=== PATIENT | female | born 1945 | race Hispanic/Latino ===

== ENCOUNTER 2017-11-23 10:02 | Inpatient (IN) | payer MEDICARE, OTHER ==
[2017-11-23] MEDS ORDERED: Sodium Chloride 0.9% 1,000 ML IV ONE (10:37)
[2017-11-23] MEDS ORDERED: Metoprolol Succinate 50 mg XL Tab PO STA (10:40)
--- NOTE | 2017-11-23 10:48 | C.PDOC ---
History Of Present Illness 72 y/o female with PMHx of diabetes,anemia, breast cancer and hypertension, presents to the ED complaining of worsening abdominal pain, occurring intermittently for the past 3 months. Pain initially was left lower quadrant but is now localized to the right lower side. (+) weight loss (+) excessive belching (+) bloating (+) constipated (secondary to narcotics). Patient was seen her PMD, Dr. Freeman, treated with Cipro and then MAcrobid for UTI. Also has had an ultrasound showing cholelithiasis, and a CT scan last week showing " lymph nodes." Also saw Dr Brown, GI on 11/21, and is scheduled for a colonoscopy this month. Otherwise she currently denies any back pain, flank pain , diarrhea, constipation, fever, dysuria or urinary frequency. Reports 1 episode of vomiting this morning- believes its secondary to "my nerves". Patient admits she did not take any of her chronic medications this morning. Time Seen by Provider: 11/23/17 10:15 Chief Complaint (Nursing): Abdominal Pain History Per: Patient History/Exam Limitations: no limitations Onset/Duration Of Symptoms: Intermittent Episodes Current Symptoms Are (Timing): Still Present Past Medical History Reviewed: Historical Data, Nursing Documentation, Vital Signs Vital Signs: Last Vital Signs Temp 98.6 F 11/23/17 15:45 Pulse 67 11/23/17 15:45 Resp 20 11/23/17 15:45 BP 182/72 H 11/23/17 12:19 Pulse Ox 98 11/23/17 18:11 - Medical History PMH: Anemia, Diabetes, Gall Bladder Disease, HTN, Malignancy (Cervical CA, Left Breast CA) Other Surgeries: Hysterectomy, Mastectomy Family History: States: No Known Family Hx - Social History Hx Alcohol Use: No Hx Substance Use: No - Immunization History Hx Tetanus Toxoid Vaccination: No Hx Influenza Vaccination: No Hx Pneumococcal Vaccination: Yes Review Of Systems Except As Marked, All Systems Reviewed And Found Negative. Constitutional: Negative for: Fever, Chills Gastrointestinal: Positive for: Vomiting, Abdominal Pain. Negative for: Diarrhea, Constipation Musculoskeletal: Negative for: Back Pain Physical Exam - Physical Exam Appears: Non-toxic, No Acute Distress Skin: Normal Color, Warm Head: Atraumatic, Normacephalic Eye(s): bilateral: Normal Inspection, EOMI Nose: Normal Oral Mucosa: Moist Neck: Normal ROM, Supple Chest: Symmetrical Cardiovascular: Rhythm Regular Respiratory: Normal Breath Sounds, No Rales, No Rhonchi, No Wheezing Gastrointestinal/Abdominal: Soft, Tenderness (mild diffuse tenderness), Distention, No Guarding Extremity: Bilateral: Atraumatic, No Pedal Edema, Normal Color And Temperature, Normal ROM Pulses: Left Dorsalis Pedis: Normal, Right Dorsalis Pedis: Normal Neurological/Psych: Oriented x3, Normal Speech, Other (No focal deficits) ED Course And Treatment - Laboratory Results Result Diagrams: 11/23/17 10:53 11/23/17 10:53 O2 Sat by Pulse Oximetry: 98 (RA) Pulse Ox Interpretation: Normal - CT Scan/US CT A/P Other Rad Studies (CT/US): Read By Radiologist, Radiology Report Reviewed CT/US Interpretation: Accession No. : [id number]. Patient Name / ID : VLADISLAV MELGAR / [id number]. Exam Date : 11/23/2017 13:17:59 ( Approved ) . Study Comment : Sex / Age : F / [id number]. Creator : Reinier Bee MD. Dictator : Reinier Bee MD. Pillowcase Cleaner : Endodontics Dentist : Reinier Bee MD. Approver2 : Report Date : 11/23/2017 14:01:06. My Comment : . PROCEDURE: CT Abdomen and Pelvis without intravenous contrast. HISTORY: Abdominal pain. COMPARISON: None. TECHNIQUE: Multiple contiguous axial images were performed through the abdomen and pelvis with the use of intravenous contrast. Subsequently, sagittal and coronal reformatted images were obtained. Radiation dose: Total exam DLP = 513 mGy-cm. This CT exam was performed using one or more of the following dose reduction techniques: Automated exposure control, adjustment of the mA and/or kV according to patient size, and/or use of iterative reconstruction technique. FINDINGS: LOWER THORAX : Nodular consolidative changes in the anterior aspect of the right middle lobe. Atelectasis at the lung bases. 6 millimeter pulmonary nodule within the inferior aspect of the left upper lobe on series 3, image 16. LIVER: Prominent liver measuring up to 23.7 centimeters. GALLBLADDER AND BILE DUCTS: Cholelithiasis with large gallbladder calculi measuring up to 1.2 and 1.4 centimeters. PANCREAS: Unremarkable. No gross lesion or ductal dilatation. SPLEEN: Prominent spleen. Splenule. 5 millimeter hypodensity in the spleen, too small to adequately characterize. ADRENALS: Prominent nodular thickening of the bilateral adrenal glands. For example, in the right adrenal gland there is a 2.1 centimeter nodule demonstrating a Hounsfield unit attenuation of 33, indeterminate. An additional right adrenal nodule measures 1.5 centimeters demonstrating a Hounsfield unit attenuation of 53, indeterminate. 1.3 centimeter low-attenuation nodule in the left adrenal gland demonstrates a Hounsfield unit attenuation of 36, indeterminate. KIDNEYS AND URETERS: Right kidney: Scattered multiple low-attenuation lesions throughout the right kidney. For example, a somewhat ill-defined lesion is noted at the upper pole measuring 1.6 centimeters demonstrating a Hounsfield unit attenuation of 28, indeterminate. Mild fullness and or mild hydronephrosis of the right renal collecting system and ureter. Additional scattered low-attenuation lesions in the right kidney. Left Kidney: 1.6 centimeter low-attenuation lesion demonstrating a Hounsfield unit attenuation of 22 in the upper pole of the left kidney, indeterminate. Perinephric fat stranding. Fullness versus mild hydronephrosis of the left renal collecting system. VASCULATURE: Atherosclerotic calcification and plaque within the aorta and iliac vessels. Severe atherosclerotic calcification and plaque seen within the mid to distal abdominal aorta extending into the iliac vessels with what appears to be severe stenosis of the aorta at its mid to distal aspect as demonstrated on series 3, images 65 through 100. Correlation with the CT angiogram of the abdominal aorta would be helpful to better characterize the degree of calcification and plaque. BOWEL: Fecal retention in the colon. APPENDIX: Unremarkable. Normal appendix. PERITONEUM: Scattered nodular areas of peritoneal thickening are concerning for carcinomatosis for example in the left upper abdomen on series 3 , images 74-84 there is a confluent area of thickening measuring up to 3.9 x 2.0 centimeters. More anteriorly there is thickening of the abdominal mesentery also concerning for carcinomatosis. LYMPH NODES: Extensive and prominent para-aortic lymphadenopathy concerning for metastatic disease seen along the anterior, right, and left abdominal aorta at its mid and distal portions which measure up to 9 centimeters in craniocaudal dimension as well as up to 3.9 x 2.3 centimeters on the right aspect of the aorta, up to 3.3 x 2.7 centimeters on the left aspect of the aorta, and up to 3.9 x 1.2 centimeters anteriorly. This lymphadenopathy is confluent and prominent. Right inguinal lymphadenopathy measures up to 2.3 x 1.4 centimeters with additional shotty left inguinal lymphadenopathy is noted. Bladder. Unremarkable. REPRODUCTIVE: Unremarkable. BONES: Degenerative changes in the spine and hips. OTHER FINDINGS: None. IMPRESSION: Extensive abdominal lymphadenopathy concerning for extensive metastatic disease. Scattered areas of abdominal mesenteric stranding concerning for abdominal carcinomatosis. Clinical correlation. Hepatosplenomegaly. Cholelithiasis. Nodular consolidative changes in the anterior aspect of the right middle lobe of the lung. 6 millimeter pulmonary nodule within the inferior aspect of the left upper lobe on series 3, image 16. Nodular thickening of the adrenals with some indeterminate bilateral adrenal nodules. Correlation with multiphasic CT may be helpful if clinically indicated. Indeterminate bilateral low-attenuation renal lesions with associated mild fullness versus mild hydronephrosis of the bilateral renal collecting systems and mild perinephric fat stranding. Clinical correlation. Severe atherosclerotic calcification and mural plaque within the aorta with severe stenosis of the mid to distal abdominal aorta . Correlation with CT angiogram of the abdominal aorta is recommended for further evaluation if clinically indicated. Additional findings as above. Progress Note: Ordered blood work and urine. Patient started on IV fluids, Protonix, and Toradol. Also given 50 mg Metoprolol PO and 2 mg Glimepiride PO. Ordered. Case discussed with Dr Monroe, who requests Dr Krystle hamm for admission and Siegal for GI. Case discussed with covering Dr for Dr Tejada, who requests CT A/P with PO & IV contrast. Upon CT results, Dr Hamm informed for results. - Physician Consult Information Time Consulting Physician Contacted: 11:21 Physician Contacted: Lex Hamm Outcome Of Conversation: Patient admitted for intractable abdominal pain Disposition Counseled Patient/Family Regarding: Studies Performed, Diagnosis - Disposition Disposition: HOSPITALIZED Disposition Time: 11:24 Condition: STABLE - Clinical Impression Clinical Impression: Bilateral lower abdominal pain, Retroperitoneal lymphadenopathy - PA / FILLING HAND / Resident Statement MD/DO has reviewed & agrees with the documentation as recorded. - Scribe Statement The provider has reviewed the documentation as recorded by the Scribe (Анна River) All medical record entries made by the Scribe were at my direction and personally dictated by me. I have reviewed the chart and agree that the record accurately reflects my personal performance of the history, physical exam, medical decision making, and the department course for this patient. I have also personally directed, reviewed, and agree with the discharge instructions and disposition.
[2017-11-23] MEDS ORDERED: Sodium Chloride 0.9% 1,000 ML ONE (10:57)
[2017-11-23 10:58] LABS: BASO % 0.4 % (0.0-2.0); EOS # 0.1 K/uL (0.0-0.7); EOS % 0.7 % (0.0-4.0); HEMOGLOBIN 10.3 g/dL (11.0-16.0); LYMPH # 0.6 K/uL (1.0-4.3); LYMPH % 6.8 % (20.0-40.0); MEAN CELL VOLUME 64.7 fL (81.0-99.0); MEAN CORPUSCULAR HEMOGLOBIN 21.4 pg (27.0-31.0); MEAN CORPUSCULAR HGB CONC 33.1 g/dL (33.0-37.0); MEAN PLATELET VOLUME 8.8 fL (7.2-11.7); MONO # 0.5 K/uL (0.0-0.8); MONO % 6.1 % (0.0-10.0); NEUT # 7.4 K/uL (1.8-7.0); NRBC % 0.1 % (0.0-2.0); PLATELET COUNT 193 K/uL (130-400); RBC 4.78 Mil/uL (3.80-5.20); RED CELL DISTRIBUTION WIDTH 17.4 % (11.5-14.5); WHITE BLOOD COUNT 8.6 K/uL (4.8-10.8)
[2017-11-23 11:12] LABS: SQUAMOUS EPITHIAL 1 /hpf (0-5); URINE AMORPHOUS SEDIMENT RARE /ul (<OCC); URINE BILIRUBIN NEGATIVE (NEGATIVE); URINE BLOOD NEGATIVE (NEGATIVE); URINE CLARITY Hazy (Clear); URINE COLOR Yellow (YELLOW); URINE GLUCOSE (UA) 1+ mg/dL (Normal); URINE LEUKOCYTE ESTERASE NEG Leu/uL (Negative); URINE PROTEIN 1+ mg/dL (NEGATIVE); URINE UROBILINOGEN NORMAL mg/dL (0.2-1.0)
[2017-11-23 11:13] LABS: ALBUMIN 3.5 g/dL (3.5-5.0); ALT/SGPT 18 U/L (9-52); AST/SGOT 21 U/L (14-36); BLOOD UREA NITROGEN 15 mg/dL (7-17); CALCIUM 9.2 mg/dl (8.6-10.4); GFR AFRICAN-AMERICAN > 60; GFR NON-AFRICAN AMERICAN > 60; LIPASE 58 U/L (23-300)
[2017-11-23 11:34] LABS: ANISOCYTOSIS SLIGHT; LYMPHOCYTE 6 % (20-40); MONOCYTE 6 % (0-10); NEUTROPHIL 88 % (50-75); PLATELET ESTIMATE NORMAL (NORMAL); TOTAL CELLS COUNTED 100
[2017-11-23 11:35] LABS: HYPOCHROMIC SLIGHT; POLYCHROMIC SLIGHT
[2017-11-23 11:36] LABS: OVALOCYTES SLIGHT
[2017-11-23] MEDS ORDERED: Iohexol 240 (50 ml) PO STA (11:39)
[2017-11-23] MEDS ORDERED: Iohexol 240 (50 ml) ONE (11:42)
[2017-11-23] MEDS ORDERED: Iohexol 300 100 ML IJ ONE (12:01)
--- NOTE | 2017-11-23 12:58 | CP.PCM.HP ---
Past Patient History - Past Social History Smoking Status: Current Some Days Smoker - CARDIAC Hx Hypertension: Yes - HEMATOLOGICAL/ONCOLOGICAL Hx Anemia: Yes - GASTROINTESTINAL Hx Gall Bladder Disease: Yes - GENITOURINARY/GYNECOLOGICAL Hx Urinary Tract Infection: Yes - PSYCHIATRIC Hx Substance Use: No - SURGICAL HISTORY Hx Surgeries: Yes Hx Hysterectomy: Yes Hx Mastectomy: Yes (left) - ANESTHESIA Hx Anesthesia: Yes Hx Anesthesia Reactions: No Hx Malignant Hyperthermia: No Meds Allergies/Adverse Reactions: Allergies Allergy/AdvReac Type Severity Reaction Status Date / Time No Known Allergies Allergy Verified 11/23/17 10:11 Physical Exam - Constitutional Appears: Well - Head Exam Head Exam: ATRAUMATIC, NORMAL INSPECTION, NORMOCEPHALIC - Eye Exam Eye Exam: EOMI, Normal appearance, PERRL Pupil Exam: NORMAL ACCOMODATION, PERRL - ENT Exam ENT Exam: Mucous Membranes Moist, Normal Exam - Neck Exam Neck exam: Positive for: Normal Inspection - Respiratory Exam Respiratory Exam: Decreased Breath Sounds - Cardiovascular Exam Cardiovascular Exam: REGULAR RHYTHM, +S1, +S2 - GI/Abdominal Exam GI & Abdominal Exam: Diminished Bowel Sounds, Soft - Rectal Exam Rectal Exam: Deferred Results - Vital Signs Recent Vital Signs: Last Vital Signs Temp 97.8 F 11/23/17 10:04 Pulse 67 11/23/17 12:19 Resp 18 11/23/17 12:19 BP 182/72 H 11/23/17 12:19 Pulse Ox 100 11/23/17 12:19 - Labs Result Diagrams: 11/23/17 10:53 11/23/17 10:53 Labs: Laboratory Results - last 24 hr 11/23/17 11/23/17 11/23/17 10:53 10:53 10:53 WBC 8.6 RBC 4.78 Hgb 10.3 L Hct 31.0 L MCV 64.7 L MCH 21.4 L MCHC 33.1 RDW 17.4 H Plt Count 193 MPV 8.8 Neut % (Auto) 86.0 H Lymph % (Auto) 6.8 L [place] % (Auto) 6.1 Eos % (Auto) 0.7 Baso % (Auto) 0.4 Neut # (Auto) 7.4 H Lymph # (Auto) 0.6 L [place] # (Auto) 0.5 Eos # (Auto) 0.1 Baso # (Auto) 0.0 Neutrophils % (Manual) 88 H Lymphocytes % (Manual) 6 L Monocytes % (Manual) 6 Platelet Estimate Normal Polychromasia Slight Hypochromasia (manual) Slight Anisocytosis (manual) Slight Ovalocytes Slight Sodium 134 Potassium 3.9 Chloride 92 L Carbon Dioxide 35 H Anion Gap 11 BUN 15 Creatinine 0.6 L Est GFR ( Amer) > 60 Est GFR (Non-Af Amer) > 60 Random Glucose 175 H Calcium 9.2 Total Bilirubin 0.5 AST 21 ALT 18 Alkaline Phosphatase 82 Total Protein 7.2 Albumin 3.5 Globulin 3.7 Albumin/Globulin Ratio 1.0 Lipase 58 Urine Color Yellow Urine Clarity Hazy Urine pH 8.0 Ur Specific [place] 1.016 Urine Protein 1+ H Urine Glucose (UA) 1+ Urine Ketones Negative Urine Blood Negative Urine Nitrate Negative Urine Bilirubin Negative Urine Urobilinogen Normal Ur Leukocyte Esterase Neg Urine WBC (Auto) 1 Urine RBC (Auto) 2 Ur Squamous Epith Cells 1 Amorphous Sediment Rare H
--- NOTE | 2017-11-23 14:02 | CT ---
PROCEDURE: CT Abdomen and Pelvis without intravenous contrast HISTORY: Abdominal pain COMPARISON: None. TECHNIQUE: Multiple contiguous axial images were performed through the abdomen and pelvis with the use of intravenous contrast. Subsequently, sagittal and coronal reformatted images were obtained. Radiation dose: Total exam DLP = 513 mGy-cm. This CT exam was performed using one or more of the following dose reduction techniques: Automated exposure control, adjustment of the mA and/or kV according to patient size, and/or use of iterative reconstruction technique. FINDINGS: LOWER THORAX: Nodular consolidative changes in the anterior aspect of the right middle lobe. Atelectasis at the lung bases. 6 millimeter pulmonary nodule within the inferior aspect of the left upper lobe on series 3, image 16. LIVER: Prominent liver measuring up to 23.7 centimeters. GALLBLADDER AND BILE DUCTS: Cholelithiasis with large gallbladder calculi measuring up to 1.2 and 1.4 centimeters. PANCREAS: Unremarkable. No gross lesion or ductal dilatation. SPLEEN: Prominent spleen. Splenule. 5 millimeter hypodensity in the spleen, too small to adequately characterize. ADRENALS: Prominent nodular thickening of the bilateral adrenal glands. For example, in the right adrenal gland there is a 2.1 centimeter nodule demonstrating a Hounsfield unit attenuation of 33, indeterminate. An additional right adrenal nodule measures 1.5 centimeters demonstrating a Hounsfield unit attenuation of 53, indeterminate. 1.3 centimeter low-attenuation nodule in the left adrenal gland demonstrates a Hounsfield unit attenuation of 36, indeterminate. KIDNEYS AND URETERS: Right kidney: Scattered multiple low-attenuation lesions throughout the right kidney. For example, a somewhat ill-defined lesion is noted at the upper pole measuring 1.6 centimeters demonstrating a Hounsfield unit attenuation of 28, indeterminate. Mild fullness and or mild hydronephrosis of the right renal collecting system and ureter. Additional scattered low-attenuation lesions in the right kidney. Left Kidney: 1.6 centimeter low-attenuation lesion demonstrating a Hounsfield unit attenuation of 22 in the upper pole of the left kidney, indeterminate. Perinephric fat stranding. Fullness versus mild hydronephrosis of the left renal collecting system. VASCULATURE: Atherosclerotic calcification and plaque within the aorta and iliac vessels. Severe atherosclerotic calcification and plaque seen within the mid to distal abdominal aorta extending into the iliac vessels with what appears to be severe stenosis of the aorta at its mid to distal aspect as demonstrated on series 3, images 65 through 100. Correlation with the CT angiogram of the abdominal aorta would be helpful to better characterize the degree of calcification and plaque. BOWEL: Fecal retention in the colon. APPENDIX: Unremarkable. Normal appendix. PERITONEUM: Scattered nodular areas of peritoneal thickening are concerning for carcinomatosis for example in the left upper abdomen on series 3, images 74-84 there is a confluent area of thickening measuring up to 3.9 x 2.0 centimeters. More anteriorly there is thickening of the abdominal mesentery also concerning for carcinomatosis. LYMPH NODES: Extensive and prominent para-aortic lymphadenopathy concerning for metastatic disease seen along the anterior, right, and left abdominal aorta at its mid and distal portions which measure up to 9 centimeters in craniocaudal dimension as well as up to 3.9 x 2.3 centimeters on the right aspect of the aorta, up to 3.3 x 2.7 centimeters on the left aspect of the aorta, and up to 3.9 x 1.2 centimeters anteriorly. This lymphadenopathy is confluent and prominent. Right inguinal lymphadenopathy measures up to 2.3 x 1.4 centimeters with additional shotty left inguinal lymphadenopathy is noted. Bladder Unremarkable. REPRODUCTIVE: Unremarkable. BONES: Degenerative changes in the spine and hips. OTHER FINDINGS: None. IMPRESSION: Extensive abdominal lymphadenopathy concerning for extensive metastatic disease. Scattered areas of abdominal mesenteric stranding concerning for abdominal carcinomatosis. Clinical correlation. Hepatosplenomegaly. Cholelithiasis. Nodular consolidative changes in the anterior aspect of the right middle lobe of the lung. 6 millimeter pulmonary nodule within the inferior aspect of the left upper lobe on series 3, image 16. Nodular thickening of the adrenals with some indeterminate bilateral adrenal nodules. Correlation with multiphasic CT may be helpful if clinically indicated. Indeterminate bilateral low-attenuation renal lesions with associated mild fullness versus mild hydronephrosis of the bilateral renal collecting systems and mild perinephric fat stranding. Clinical correlation. Severe atherosclerotic calcification and mural plaque within the aorta with severe stenosis of the mid to distal abdominal aorta . Correlation with CT angiogram of the abdominal aorta is recommended for further evaluation if clinically indicated. Additional findings as above.
[2017-11-23] MEDS: Ciprofloxacin 400mg/200ml D5W 400 MG/200 ML BAG IVPB SCH (14:16)
[2017-11-23] MEDS: metroNIDAZOLE IV 500 mg/100 ml 500 MG/100 ML BAG IVPB SCH ×2 (15:43→21:50)
--- NOTE | 2017-11-23 15:59 | CP.PCM.CON ---
History of Present Illness - History of Present Illness History of Present Illness: This is a 72 year old woman who was admitted for abdominal pain. Patient noted onset of pain three months ago. Pain is located in both lower quadrants, radiates toward the umbilicus, is described as burning, lasts four to six hours and occurs two or three times a week. There is no clear relation to meals, defecation or position. She has frequent belching. She vomited on two occasions: two months ago and on the day of admission. Her appetite has been poor, and she has been eating smaller portions of food. She has lost between eight and twelve pounds in the past three months. She has felt feverish on occasion but has not checked her temperature. She denies having heartburn or difficulty swallowing. She has been constipated since she started taking Oxycodone; prior to taking narcotics, the bowel movements were regular. She denies having diarrhea or rectal bleeding. She also complained of pain in the right buttock only with exercise. CT scan in the ER showed nodular consolidative changes in the RML, gallstones, adrenal nodules, fullness of both renal collecting systems, severe stenosis of the distal aorta, peritoneal nodules suggestive of carcinomatosis, extensive paraaortic adenopathy (9cm in length and up to 3.9 cm in diameter), right inguinal adenopathy up to 2.3 cm, possible gastric wall thickening. Review of Systems - Constitutional Constitutional: Chills, Fever, Weight Loss - Gastrointestinal Gastrointestinal: Belching, Constipation, Early Satiety, Nausea, Vomiting. absent: Diarrhea, Dysphagia, Heartburn, Hematochezia - Musculoskeletal Musculoskeletal: Other Additional comments: Pain in buttocks on exercise Past Patient History - Past Medical History & Family History Past Family History: Reviewed and not pertinent Pertinent Family History: Father and two paternal uncles had colon cancer. - Past Social History Smoking Status: Current Some Days Smoker - CARDIAC Hx Hypertension: Yes - HEMATOLOGICAL/ONCOLOGICAL Hx Anemia: Yes - GASTROINTESTINAL Hx Gall Bladder Disease: Yes - GENITOURINARY/GYNECOLOGICAL Hx Urinary Tract Infection: Yes - PSYCHIATRIC Hx Substance Use: No - SURGICAL HISTORY Hx Surgeries: Yes Hx Hysterectomy: Yes Hx Mastectomy: Yes (left) - ANESTHESIA Hx Anesthesia: Yes Hx Anesthesia Reactions: No Hx Malignant Hyperthermia: No Meds Allergies/Adverse Reactions: Allergies Allergy/AdvReac Type Severity Reaction Status Date / Time No Known Allergies Allergy Verified 11/23/17 10:11 - Medications Medications: Current Medications Amlodipine Besylate (Norvasc) 5 mg PO DAILY [facility] Enoxaparin Sodium (Lovenox) 40 mg SC DAILY [facility] Glimepiride (Amaryl) 2 mg PO BIDAC [facility] Home Med (Multivitamin [Multivitamins]) 1 each PO DAILY [facility] Hydrochlorothiazide (Microzide) 12.5 mg PO DAILY [facility] Ciprofloxacin (Cipro 400mg/200ml Dsw) 400 mg in 200 mls @ 200 mls/hr IVPB Q12H [facility] PRN Reason: Protocol Stop: 11/30/17 13:01 Last Admin: 11/23/17 14:16 Dose: 200 mls/hr Metronidazole (Flagyl) 500 mg in 100 mls @ 100 mls/hr IVPB Q8 [facility] PRN Reason: Protocol Stop: 11/30/17 14:01 Last Admin: 11/23/17 15:43 Dose: 100 mls/hr Lisinopril (Zestril) 20 mg PO DAILY [facility] Metoprolol Succinate (Toprol Xl) 50 mg PO DAILY [facility] Pantoprazole Sodium (Protonix Ec Tab) 40 mg PO DAILY [facility] Pioglitazone HCl (Actos) 30 mg PO QPM [facility] Physical Exam - Constitutional Appears: No Acute Distress - Head Exam Head Exam: ATRAUMATIC, NORMOCEPHALIC - Eye Exam Eye Exam: EOMI, PERRL - Neck Exam Neck exam: Negative for: Lymphadenopathy, Thyromegaly - Respiratory Exam Respiratory Exam: NORMAL BREATHING PATTERN. absent: Rales, Rhonchi, Wheezes - Cardiovascular Exam Cardiovascular Exam: REGULAR RHYTHM, +S1. absent: Gallop, Rubs, Systolic Murmur - GI/Abdominal Exam GI & Abdominal Exam: Normal Bowel Sounds, Soft. absent: Mass, Organomegaly, Tenderness - Rectal Exam Rectal Exam: Deferred - Extremities Exam Extremities exam: Negative for: calf tenderness, pedal edema Results - Vital Signs Recent Vital Signs: Last Vital Signs Temp 98.6 F 11/23/17 15:45 Pulse 67 11/23/17 15:45 Resp 20 11/23/17 15:45 BP 199/77 H 11/23/17 15:45 Pulse Ox 99 11/23/17 15:45 - Labs Result Diagrams: 11/23/17 10:53 11/23/17 10:53 Labs: Laboratory Results - last 24 hr 11/23/17 11/23/17 11/23/17 10:53 10:53 10:53 WBC 8.6 RBC 4.78 Hgb 10.3 L Hct 31.0 L MCV 64.7 L MCH 21.4 L MCHC 33.1 RDW 17.4 H Plt Count 193 MPV 8.8 Neut % (Auto) 86.0 H Lymph % (Auto) 6.8 L [place] % (Auto) 6.1 Eos % (Auto) 0.7 Baso % (Auto) 0.4 Neut # (Auto) 7.4 H Lymph # (Auto) 0.6 L [place] # (Auto) 0.5 Eos # (Auto) 0.1 Baso # (Auto) 0.0 Neutrophils % (Manual) 88 H Lymphocytes % (Manual) 6 L Monocytes % (Manual) 6 Platelet Estimate Normal Polychromasia Slight Hypochromasia (manual) Slight Anisocytosis (manual) Slight Ovalocytes Slight Sodium 134 Potassium 3.9 Chloride 92 L Carbon Dioxide 35 H Anion Gap 11 BUN 15 Creatinine 0.6 L Est GFR ( Amer) > 60 Est GFR (Non-Af Amer) > 60 POC Glucose (mg/dL) Random Glucose 175 H Calcium 9.2 Total Bilirubin 0.5 AST 21 ALT 18 Alkaline Phosphatase 82 Total Protein 7.2 Albumin 3.5 Globulin 3.7 Albumin/Globulin Ratio 1.0 Lipase 58 Urine Color Yellow Urine Clarity Hazy Urine pH 8.0 Ur Specific [place] 1.016 Urine Protein 1+ H Urine Glucose (UA) 1+ Urine Ketones Negative Urine Blood Negative Urine Nitrate Negative Urine Bilirubin Negative Urine Urobilinogen Normal Ur Leukocyte Esterase Neg Urine WBC (Auto) 1 Urine RBC (Auto) 2 Ur Squamous Epith Cells 1 Amorphous Sediment Rare H 11/23/17 13:57 WBC RBC Hgb Hct MCV MCH MCHC RDW Plt Count MPV Neut % (Auto) Lymph % (Auto) [place] % (Auto) Eos % (Auto) Baso % (Auto) Neut # (Auto) Lymph # (Auto) [place] # (Auto) Eos # (Auto) Baso # (Auto) Neutrophils % (Manual) Lymphocytes % (Manual) Monocytes % (Manual) Platelet Estimate Polychromasia Hypochromasia (manual) Anisocytosis (manual) Ovalocytes Sodium Potassium Chloride Carbon Dioxide Anion Gap BUN Creatinine Est GFR ( Amer) Est GFR (Non-Af Amer) POC Glucose (mg/dL) 143 H Random Glucose Calcium Total Bilirubin AST ALT Alkaline Phosphatase Total Protein Albumin Globulin Albumin/Globulin Ratio Lipase Urine Color Urine Clarity Urine pH Ur Specific [place] Urine Protein Urine Glucose (UA) Urine Ketones Urine Blood Urine Nitrate Urine Bilirubin Urine Urobilinogen Ur Leukocyte Esterase Urine WBC (Auto) Urine RBC (Auto) Ur Squamous Epith Cells Amorphous Sediment Assessment & Plan (1) Bilateral lower abdominal pain Assessment and Plan: Patient has a three month history of intermittent lower abdominal pain, of unclear etiology. The pain is not clearly related to meals or to defecation. She does complain of weight loss and early satiety. There is evidence of severe atherosclerosis of the abdominal aorta and paraaortic adenopathy along with peritoneal nodules. She has a history of breast Ca and cervical Ca, and the adenopathy may be related to metastatic disease. Recommend EGD, colonoscopy and lymph node biopsy. If the lymph node biopsy is non-diagnostic, tissue may be obtained from peritoneal nodule under CT guidance. Status: Acute (2) Retroperitoneal lymphadenopathy Assessment and Plan: Will plan for biopsy of inguinal lymph node first. If this is non-diagnostic, will ask IR to biopsy peritoneal implant or retroperitoneal lymph node. Status: Acute (3) Peripheral arterial disease Assessment and Plan: Will order CT angiogram. Status: Acute
[2017-11-23] MEDS ORDERED: Bisacodyl 5mg EC Tab PO ONE (17:00)
[2017-11-23] MEDS ORDERED: HYDROmorphone 1 mg/ml ISec SC PRN (17:30)
[2017-11-23] MEDS: HYDROmorphone 0.5 mg/0.5 ml ISec SC PRN (19:00)
[2017-11-23] MEDS ORDERED: Peg-Electrolyte Oral Soln 4L (Golytely) PO ONE (19:00)
[2017-11-24] MEDS: Ciprofloxacin 400mg/200ml D5W 400 MG/200 ML BAG IVPB SCH ×2 (00:16→12:40)
[2017-11-24] MEDS ORDERED: Sodium Chloride 0.9% 1,000 ML IV SCH (00:30)
[2017-11-24] MEDS: HYDROmorphone 0.5 mg/0.5 ml ISec SC PRN ×2 (02:32→06:35)
--- NOTE | 2017-11-24 02:32 | CP.PCM.CON ---
History of Present Illness - History of Present Illness History of Present Illness: Surgery 72F w h/o L mastectomy for breast CA and hysterectomy for cervical CA came to ED for abd pain started few month ago. Pain is located around the mid/low abd and is burning sensation. Reports anorexia and recent weight loss. Denies fever , vomiting, hematemesis, hematochezia, CP, SOB, menela. Both surgeries were done over 30 years ago. Pt has been taken percocet for abd pain and causing her constipation. CT abd shows marked lymphadenopahy and peritoneal wall thickening concerning for carcinomatosis and metastasis. Surgery is consulted for LN biopsy of R inguinal area. PMH DM HTN anemia PSH see above Review of Systems - Review of Systems Review of Systems: See HPI Past Patient History - Past Medical History & Family History Past Family History: Reviewed and not pertinent - Past Social History Smoking Status: Current Some Days Smoker - CARDIAC Hx Hypertension: Yes - ENDOCRINE/METABOLIC Hx Diabetes Mellitus Type 2: Yes - HEMATOLOGICAL/ONCOLOGICAL Hx Anemia: Yes - MUSCULOSKELETAL/RHEUMATOLOGICAL Hx Falls: No Hx Osteoporosis: Yes - GASTROINTESTINAL Hx Gall Bladder Disease: Yes - GENITOURINARY/GYNECOLOGICAL Hx Urinary Tract Infection: Yes - PSYCHIATRIC Hx Substance Use: No - SURGICAL HISTORY Hx Surgeries: Yes Hx Hysterectomy: Yes Hx Mastectomy: Yes (left) - ANESTHESIA Hx Anesthesia: Yes Hx Anesthesia Reactions: No Hx Malignant Hyperthermia: No Meds Allergies/Adverse Reactions: Allergies Allergy/AdvReac Type Severity Reaction Status Date / Time No Known Allergies Allergy Verified 11/23/17 10:11 - Medications Medications: Current Medications Amlodipine Besylate (Norvasc) 5 mg PO DAILY [facility] Enoxaparin Sodium (Lovenox) 40 mg SC DAILY [facility] Glimepiride (Amaryl) 2 mg PO BIDAC [facility] Last Admin: 11/23/17 17:25 Dose: Not Given Home Med (Multivitamin [Multivitamins]) 1 each PO DAILY [facility] Hydrochlorothiazide (Microzide) 12.5 mg PO DAILY [facility] Hydromorphone HCl (Dilaudid) 1 mg SC Q4H PRN PRN Reason: Pain, moderate (4-7) Last Admin: 11/23/17 19:00 Dose: 1 mg Ciprofloxacin (Cipro 400mg/200ml Dsw) 400 mg in 200 mls @ 200 mls/hr IVPB Q12H [facility] PRN Reason: Protocol Stop: 11/30/17 13:01 Last Admin: 11/24/17 00:16 Dose: 200 mls/hr Metronidazole (Flagyl) 500 mg in 100 mls @ 100 mls/hr IVPB Q8 [facility] PRN Reason: Protocol Stop: 11/30/17 14:01 Last Admin: 11/23/17 21:50 Dose: 100 mls/hr Sodium Chloride (Sodium Chloride 0.9%) 1,000 mls @ 50 mls/hr IV .Q20H [facility] Last Admin: 11/24/17 01:00 Dose: 50 mls/hr Lisinopril (Zestril) 20 mg PO DAILY [facility] Metoprolol Succinate (Toprol Xl) 50 mg PO DAILY [facility] Pantoprazole Sodium (Protonix Ec Tab) 40 mg PO DAILY [facility] Pioglitazone HCl (Actos) 30 mg PO QPM [facility] Last Admin: 11/23/17 18:58 Dose: Not Given Physical Exam - Constitutional Appears: No Acute Distress - Head Exam Head Exam: ATRAUMATIC, NORMAL INSPECTION, NORMOCEPHALIC - Eye Exam Eye Exam: EOMI, Normal appearance, PERRL Pupil Exam: NORMAL ACCOMODATION, PERRL - ENT Exam ENT Exam: Mucous Membranes Moist, Normal Exam - Neck Exam Neck exam: Positive for: Normal Inspection - Respiratory Exam Respiratory Exam: Clear to Auscultation Bilateral, NORMAL BREATHING PATTERN - Cardiovascular Exam Cardiovascular Exam: REGULAR RHYTHM - GI/Abdominal Exam GI & Abdominal Exam: Normal Bowel Sounds, Soft, Tenderness. absent: Distended, Firm, Guarding, Hernia Additional comments: Low abd TTP - Extremities Exam Extremities exam: Positive for: full ROM, normal inspection Additional comments: palpable small inguinal LN - Back Exam Back exam: NORMAL INSPECTION - Neurological Exam Neurological exam: Alert, CN II-XII Intact, Normal Gait, Oriented x3, Reflexes Normal - Psychiatric Exam Psychiatric exam: Normal Affect, Normal Mood - Skin Skin Exam: Dry, Intact, Normal Color, Warm Results - Vital Signs Recent Vital Signs: Last Vital Signs Temp 99.3 F 11/24/17 00:00 Pulse 73 11/24/17 00:00 Resp 20 11/24/17 00:00 BP 182/72 H 11/23/17 12:19 Pulse Ox 96 11/24/17 00:00 - Labs Result Diagrams: 11/23/17 10:53 11/23/17 10:53 Labs: Laboratory Results - last 24 hr 11/23/17 11/23/17 11/23/17 10:53 10:53 10:53 WBC 8.6 RBC 4.78 Hgb 10.3 L Hct 31.0 L MCV 64.7 L MCH 21.4 L MCHC 33.1 RDW 17.4 H Plt Count 193 MPV 8.8 Neut % (Auto) 86.0 H Lymph % (Auto) 6.8 L [place] % (Auto) 6.1 Eos % (Auto) 0.7 Baso % (Auto) 0.4 Neut # (Auto) 7.4 H Lymph # (Auto) 0.6 L [place] # (Auto) 0.5 Eos # (Auto) 0.1 Baso # (Auto) 0.0 Neutrophils % (Manual) 88 H Lymphocytes % (Manual) 6 L Monocytes % (Manual) 6 Platelet Estimate Normal Polychromasia Slight Hypochromasia (manual) Slight Anisocytosis (manual) Slight Ovalocytes Slight Sodium 134 Potassium 3.9 Chloride 92 L Carbon Dioxide 35 H Anion Gap 11 BUN 15 Creatinine 0.6 L Est GFR ( Amer) > 60 Est GFR (Non-Af Amer) > 60 POC Glucose (mg/dL) Random Glucose 175 H Calcium 9.2 Total Bilirubin 0.5 AST 21 ALT 18 Alkaline Phosphatase 82 Total Protein 7.2 Albumin 3.5 Globulin 3.7 Albumin/Globulin Ratio 1.0 Lipase 58 Urine Color Yellow Urine Clarity Hazy Urine pH 8.0 Ur Specific [place] 1.016 Urine Protein 1+ H Urine Glucose (UA) 1+ Urine Ketones Negative Urine Blood Negative Urine Nitrate Negative Urine Bilirubin Negative Urine Urobilinogen Normal Ur Leukocyte Esterase Neg Urine WBC (Auto) 1 Urine RBC (Auto) 2 Ur Squamous Epith Cells 1 Amorphous Sediment Rare H 11/23/17 11/23/17 11/23/17 13:57 16:15 21:09 WBC RBC Hgb Hct MCV MCH MCHC RDW Plt Count MPV Neut % (Auto) Lymph % (Auto) [place] % (Auto) Eos % (Auto) Baso % (Auto) Neut # (Auto) Lymph # (Auto) [place] # (Auto) Eos # (Auto) Baso # (Auto) Neutrophils % (Manual) Lymphocytes % (Manual) Monocytes % (Manual) Platelet Estimate Polychromasia Hypochromasia (manual) Anisocytosis (manual) Ovalocytes Sodium Potassium Chloride Carbon Dioxide Anion Gap BUN Creatinine Est GFR ( Amer) Est GFR (Non-Af Amer) POC Glucose (mg/dL) 143 H 118 H 82 Random Glucose Calcium Total Bilirubin AST ALT Alkaline Phosphatase Total Protein Albumin Globulin Albumin/Globulin Ratio Lipase Urine Color Urine Clarity Urine pH Ur Specific [place] Urine Protein Urine Glucose (UA) Urine Ketones Urine Blood Urine Nitrate Urine Bilirubin Urine Urobilinogen Ur Leukocyte Esterase Urine WBC (Auto) Urine RBC (Auto) Ur Squamous Epith Cells Amorphous Sediment Assessment & Plan - Assessment and Plan (Free Text) Assessment: 72 F w ho breast and cervical CA with lymphadenopathy CT severe para aortic and inguinal lymphadenopathy , nodular peritoneal wall thickening -f/u Colonoscopy on Mon -Possible LN Bx of inguinal area Will DW Dr. Garcia
[2017-11-24] MEDS: metroNIDAZOLE IV 500 mg/100 ml 500 MG/100 ML BAG IVPB SCH ×2 (06:08→14:39)
[2017-11-24 06:42] LABS: BASO % 0.8 % (0.0-2.0); EOS % 0.5 % (0.0-4.0); HEMOGLOBIN 8.8 g/dL (11.0-16.0); LYMPH # 0.6 K/uL (1.0-4.3); LYMPH % 9.4 % (20.0-40.0); MEAN CELL VOLUME 65.1 fL (81.0-99.0); MEAN CORPUSCULAR HEMOGLOBIN 21.2 pg (27.0-31.0); MEAN CORPUSCULAR HGB CONC 32.5 g/dL (33.0-37.0); MEAN PLATELET VOLUME 9.6 fL (7.2-11.7); MONO # 0.5 K/uL (0.0-0.8); MONO % 8.7 % (0.0-10.0); NEUT % 80.6 % (50.0-75.0); NRBC % 0.1 % (0.0-2.0); PLATELET COUNT 177 K/uL (130-400); RBC 4.13 Mil/uL (3.80-5.20); RED CELL DISTRIBUTION WIDTH 17.7 % (11.5-14.5); WHITE BLOOD COUNT 6.2 K/uL (4.8-10.8)
[2017-11-24 06:55] LABS: IRON 27 ug/dL (37-170)
[2017-11-24 06:58] LABS: ALB/GLOB RATIO 0.9 (1.0-2.1); ALBUMIN 2.9 g/dL (3.5-5.0); ALT/SGPT 34 U/L (9-52); AST/SGOT 19 U/L (14-36); BLOOD UREA NITROGEN 12 mg/dL (7-17); GFR AFRICAN-AMERICAN > 60; GFR NON-AFRICAN AMERICAN > 60
[2017-11-24 07:04] LABS: % IRON SATURATION 10 (20-55); TOTAL IRON BINDING CAPACITY 268 ug/dL (250-450)
[2017-11-24] MEDS: Metoprolol Succinate 50 mg XL Tab PO SCH ×2 (07:15→10:42)
[2017-11-24 07:26] LABS: INR 1.3; PROTHROMBIN TIME 14.1 SECONDS (9.7-12.2)
[2017-11-24] MEDS ORDERED: Propofol 10 mg/ml Inj (20 ML) ONE (07:37)
[2017-11-24 08:02] LABS: FOLATE 13.3 ng/mL
[2017-11-24] MEDS ORDERED: Etomidate 20 mg/10ml Inj IV ONE (08:22)
--- NOTE | 2017-11-24 08:24 | CP.PCM.PN ---
Subjective - Date & Time of Evaluation Date of Evaluation: 11/24/17 Time of Evaluation: 08:22 - Subjective Subjective: EGD and Colonoscopy: (see full report) Thickened gastric folds Mild diffuse gastritis Diverticulosis Large sigmoid polyp sessile polyp of descending colon internal hemorrhoids NO ASA, NSAIDs or Lovenox post polypectomy Advise IR for CT guided biopsy of LN for tissue diagnosis. Await pathology but doubt that either colon lesion is cause of other CT findings. Objective - Vital Signs/Intake and Output Vital Signs (last 24 hours): Temp Pulse Resp BP Pulse Ox 99.3 F 73 20 161/76 H 96 11/24/17 00:00 11/24/17 00:00 11/24/17 00:00 11/24/17 00:00 11/24/17 00:00 Intake and Output: 11/24/17 11/24/17 06:59 18:59 Intake Total 1200 Output Total 6 Balance 1194 - Medications Medications: Current Medications Amlodipine Besylate (Norvasc) 5 mg PO DAILY [facility] Glimepiride (Amaryl) 2 mg PO BIDAC [facility] Last Admin: 11/24/17 08:07 Dose: Not Given Hydrochlorothiazide (Microzide) 12.5 mg PO DAILY [facility] Hydromorphone HCl (Dilaudid) 1 mg SC Q4H PRN PRN Reason: Pain, moderate (4-7) Last Admin: 11/24/17 06:35 Dose: 1 mg Ciprofloxacin (Cipro 400mg/200ml Dsw) 400 mg in 200 mls @ 200 mls/hr IVPB Q12H [facility] PRN Reason: Protocol Stop: 11/30/17 13:01 Last Admin: 11/24/17 00:16 Dose: 200 mls/hr Metronidazole (Flagyl) 500 mg in 100 mls @ 100 mls/hr IVPB Q8 [facility] PRN Reason: Protocol Stop: 11/30/17 14:01 Last Admin: 11/24/17 06:08 Dose: 100 mls/hr Sodium Chloride (Sodium Chloride 0.9%) 1,000 mls @ 50 mls/hr IV .Q20H [facility] Last Admin: 11/24/17 01:00 Dose: 50 mls/hr Lisinopril (Zestril) 20 mg PO DAILY [facility] Last Admin: 11/24/17 07:15 Dose: 20 mg Metoprolol Succinate (Toprol Xl) 50 mg PO DAILY [facility] Last Admin: 11/24/17 07:15 Dose: 50 mg Multivitamins (Hexavitamin) 1 tab PO DAILY [facility] Pantoprazole Sodium (Protonix Ec Tab) 40 mg PO DAILY [facility] Pioglitazone HCl (Actos) 30 mg PO QPM [facility] Last Admin: 11/23/17 18:58 Dose: Not Given - Labs Labs: 11/24/17 06:34 11/24/17 06:34 PT 14.1 SECONDS (9.7-12.2) H 11/24/17 07:12 INR 1.3 11/24/17 07:12 APTT 33 SECONDS (21-34) 11/24/17 07:12
[2017-11-24 08:57] LABS: BANDS 1 % (0-2); LYMPHOCYTE 10 % (20-40); MONOCYTE 9 % (0-10); NEUTROPHIL 80 % (50-75); PLATELET ESTIMATE NORMAL (NORMAL); TOTAL CELLS COUNTED 100
[2017-11-24 08:58] LABS: ANISOCYTOSIS SLIGHT; BURR CELLS SLIGHT; HYPOCHROMIC SLIGHT; OVALOCYTES SLIGHT; POIKILOCYTOSIS SLIGHT; TARGET CELLS SLIGHT; TEARDROP CELLS SLIGHT
[2017-11-24 09:31] VITALS: BP 159/67; PULSE 64; RESP 20; TEMP 98.6; O2SAT 96
[2017-11-24] MEDS ORDERED: Pantoprazole 40 mg EC Tab PO SCH (10:00)
[2017-11-24] MEDS ORDERED: Enoxaparin 40 mg Syringe SC SCH (10:00)
[2017-11-24] MEDS ORDERED: Multiple Vitamins Tab PO SCH (10:00)
--- NOTE | 2017-11-24 15:25 | CP.PCM.PN ---
Subjective - Date & Time of Evaluation Date of Evaluation: 11/24/17 Time of Evaluation: 11:00 - Subjective Subjective: alert, awake, no sob or distress. Objective - Vital Signs/Intake and Output Vital Signs (last 24 hours): Temp Pulse Resp BP Pulse Ox 98.6 F 64 20 159/67 H 96 11/24/17 09:10 11/24/17 09:10 11/24/17 09:10 11/24/17 09:10 11/24/17 09:10 Intake and Output: 11/24/17 11/24/17 06:59 18:59 Intake Total 1200 700 Output Total 6 Balance 1194 700 - Medications Medications: Current Medications Amlodipine Besylate (Norvasc) 5 mg PO DAILY [facility] Last Admin: 11/24/17 10:38 Dose: 5 mg Glimepiride (Amaryl) 2 mg PO BIDAC [facility] Last Admin: 11/24/17 08:07 Dose: Not Given Hydrochlorothiazide (Microzide) 12.5 mg PO DAILY [facility] Last Admin: 11/24/17 10:43 Dose: 12.5 mg Hydromorphone HCl (Dilaudid) 1 mg SC Q4H PRN PRN Reason: Pain, moderate (4-7) Last Admin: 11/24/17 06:35 Dose: 1 mg Ciprofloxacin (Cipro 400mg/200ml Dsw) 400 mg in 200 mls @ 200 mls/hr IVPB Q12H [facility] PRN Reason: Protocol Stop: 11/30/17 13:01 Last Admin: 11/24/17 12:40 Dose: 200 mls/hr Metronidazole (Flagyl) 500 mg in 100 mls @ 100 mls/hr IVPB Q8 [facility] PRN Reason: Protocol Stop: 11/30/17 14:01 Last Admin: 11/24/17 14:39 Dose: Not Given Sodium Chloride (Sodium Chloride 0.9%) 1,000 mls @ 50 mls/hr IV .Q20H [facility] Last Admin: 11/24/17 01:00 Dose: 50 mls/hr Lisinopril (Zestril) 20 mg PO DAILY [facility] Last Admin: 11/24/17 10:43 Dose: Not Given Metoprolol Succinate (Toprol Xl) 50 mg PO DAILY [facility] Last Admin: 11/24/17 10:42 Dose: Not Given Multivitamins (Hexavitamin) 1 tab PO DAILY [facility] Last Admin: 11/24/17 10:38 Dose: 1 tab Pantoprazole Sodium (Protonix Ec Tab) 40 mg PO DAILY [facility] Last Admin: 11/24/17 10:37 Dose: 40 mg Pioglitazone HCl (Actos) 30 mg PO QPM [facility] Last Admin: 11/23/17 18:58 Dose: Not Given - Labs Labs: 11/24/17 06:34 11/24/17 06:34 PT 14.1 SECONDS (9.7-12.2) H 11/24/17 07:12 INR 1.3 11/24/17 07:12 APTT 33 SECONDS (21-34) 11/24/17 07:12 Assessment and Plan - Assessment and Plan (Free Text) Assessment: Patient admitted with lymphangitis, abdominal pain, seen and examined. Denies any nausea, vomiting or abdominal pain. She will call the doctor for lymph node biopsy as advised by DR Garcia tomorrow. po antibiotics given for 1 week. Advised to follow up with PMD in 1 week. No distress noted.
== END 2017-11-24 15:30 | disposition home or self-care (01) | DRG 392 ==
LOC: C.ER 10:02 → C.9E 11:21 → C.3T 11:43
PROVIDERS: ADMIT Internal Medicine Nephrology; ATTEND Internal Medicine Nephrology
PROC: 0DB68ZX Excision of Stomach, Via Natural or Artificial Opening Endoscopic, Diagnostic (ICD-10-PCS; 2017-11-24)
PROC: 0DBM8ZX Excision of Descending Colon, Via Natural or Artificial Opening Endoscopic, Diagnostic (ICD-10-PCS; principal; 2017-11-24 07:30)
PROC: 0DBN8ZX Excision of Sigmoid Colon, Via Natural or Artificial Opening Endoscopic, Diagnostic (ICD-10-PCS; 2017-11-24 07:30)
DX: K57.90 Diverticulosis of intestine, part unspecified, without perforation or abscess without bleeding (principal); D12.4 Benign neoplasm of descending colon; D12.5 Benign neoplasm of sigmoid colon; K29.70 Gastritis, unspecified, without bleeding; K64.8 Other hemorrhoids; Z85.3 Personal history of malignant neoplasm of breast; Z85.41 Personal history of malignant neoplasm of cervix uteri; F17.210 Nicotine dependence, cigarettes, uncomplicated; Z90.12 Acquired absence of left breast and nipple; I70.0 Atherosclerosis of aorta; I10 Essential (primary) hypertension; E11.51 Type 2 diabetes mellitus with diabetic peripheral angiopathy without gangrene; K21.9 Gastro-esophageal reflux disease without esophagitis; K44.9 Diaphragmatic hernia without obstruction or gangrene; Z79.4 Long term (current) use of insulin

== ENCOUNTER 2017-11-27 17:03 | Emergency (ER) | payer MEDICARE ==
[2017-11-27 17:04] VITALS: BMI 31.1
--- NOTE | 2017-11-27 18:09 | C.PDOC ---
History Of Present Illness 72 y/o female presents to the ER complaining of vague colicky abdominal pain which has been present for the past few days. Patient reports that she had a colonoscopy earlier this week and she had an upper endoscopy which was significant for 2 benign polyps. Patient reports that she was taking Percocet for the pain but she did not like it. She is currently taking Tramadol 50 mg QID. She notes that she did not take stool softeners and/or laxatives. Time Seen by Provider: 11/27/17 17:36 Chief Complaint (Nursing): Abdominal Pain History Per: Patient History/Exam Limitations: no limitations Onset/Duration Of Symptoms: Days Current Symptoms Are (Timing): Still Present Severity: Moderate Associated Symptoms: denies: Fever, Chills Past Medical History Reviewed: Historical Data, Nursing Documentation, Vital Signs Vital Signs: Last Vital Signs Temp 99 F 11/27/17 17:18 Pulse 66 11/27/17 18:53 Resp 18 11/27/17 18:53 BP 174/66 H 11/27/17 18:53 Pulse Ox 99 11/27/17 19:11 - Medical History PMH: Anemia, Diabetes, Gall Bladder Disease, HTN, Malignancy (Cervical CA, Left Breast CA), Osteoporosis Denies: Chronic Kidney Disease Surgical History: Endoscopy - [facility] Procedures EXCISION OF DESCENDING COLON, ENDO, DIAGN (11/23/17) EXCISION OF SIGMOID COLON, ENDO, DIAGN (11/23/17) EXCISION OF STOMACH, ENDO, DIAGN (11/23/17) Family History: States: No Known Family Hx - Social History Hx Alcohol Use: No Hx Substance Use: No - Immunization History Hx Tetanus Toxoid Vaccination: No Hx Influenza Vaccination: No Hx Pneumococcal Vaccination: Yes Review Of Systems Except As Marked, All Systems Reviewed And Found Negative. Constitutional: Negative for: Fever, Chills Gastrointestinal: Positive for: Abdominal Pain. Negative for: Nausea, Vomiting , Diarrhea Genitourinary: Negative for: Dysuria, Hematuria Physical Exam - Physical Exam Appears: Non-toxic, No Acute Distress Skin: Normal Color, Warm, Dry Head: Atraumatic, Normacephalic Eye(s): bilateral: Normal Inspection Nose: Normal Oral Mucosa: Moist Neck: Supple Chest: Symmetrical Cardiovascular: Rhythm Regular Respiratory: Normal Breath Sounds, No Rales, No Rhonchi, No Wheezing Gastrointestinal/Abdominal: Bowel Sounds (diminished breath sounds), Soft, No Tenderness, Distention, No Guarding, No Rebound, Other (dull to percussion throughout entire abdomen) Neurological/Psych: Oriented x3, Normal Speech ED Course And Treatment - Laboratory Results Result Diagrams: 11/27/17 19:03 11/27/17 19:03 Lab Interpretation: Normal (baseline anemia is IMPROVED c/w reent 8.8) O2 Sat by Pulse Oximetry: 99 (RA) Pulse Ox Interpretation: Normal - Radiology CXR: Interpreted by Me CXR Interpretation: Yes: No Acute Disease - Other Rad abd x 2 X-Ray: Interpreted by Me (+FOS) Progress Note: Labs, EKG, Abd. Obs. Series, Zestril PO Reevaluation Time: 20:20 Reassessment Condition: Improved Medical Decision Making Medical Decision Making: chronic constipation due to PO narcotics and DM slow intestinal motility and sedentary lifestyle d/c narcotics daily laxatives/stool softners PRN Disposition Doctor Will See Patient In The: Office Counseled Patient/Family Regarding: Studies Performed, Diagnosis - Disposition Disposition: HOME/ ROUTINE Disposition Time: 20:20 Condition: GOOD Forms: [facility] (Welsh) - Clinical Impression Clinical Impression: H/O abdominal colic - Scribe Statement The provider has reviewed the documentation as recorded by the Cassi Richardson Provider Attestation: All medical record entries made by the Gabeibe were at my direction and personally dictated by me. I have reviewed the chart and agree that the record accurately reflects my personal performance of the history, physical exam, medical decision making, and the department course for this patient. I have also personally directed, reviewed, and agree with the discharge instructions and disposition.
[2017-11-27 18:57] LABS: SQUAMOUS EPITHIAL 1 /hpf (0-5); URINE BILIRUBIN NEGATIVE (NEGATIVE); URINE BLOOD NEGATIVE (NEGATIVE); URINE CLARITY Clear (Clear); URINE COLOR Yellow (YELLOW); URINE GLUCOSE (UA) NORMAL (Normal); URINE LEUKOCYTE ESTERASE TRACE Leu/uL (Negative); URINE PROTEIN NEGATIVE (NEGATIVE); URINE UROBILINOGEN NORMAL mg/dL (0.2-1.0)
[2017-11-27 19:07] LABS: BASO % 0.4 % (0.0-2.0); EOS % 0.2 % (0.0-4.0); HEMOGLOBIN 9.3 g/dL (11.0-16.0); LYMPH # 0.6 K/uL (1.0-4.3); LYMPH % 6.5 % (20.0-40.0); MEAN CORPUSCULAR HEMOGLOBIN 20.6 pg (27.0-31.0); MEAN CORPUSCULAR HGB CONC 31.7 g/dL (33.0-37.0); MEAN PLATELET VOLUME 8.7 fL (7.2-11.7); MONO # 0.7 K/uL (0.0-0.8); MONO % 8.3 % (0.0-10.0); NEUT # 7.4 K/uL (1.8-7.0); NEUT % 84.6 % (50.0-75.0); NRBC % 0.1 % (0.0-2.0); PLATELET COUNT 228 K/uL (130-400); RBC 4.53 Mil/uL (3.80-5.20); RED CELL DISTRIBUTION WIDTH 17.2 % (11.5-14.5); WHITE BLOOD COUNT 8.7 K/uL (4.8-10.8)
[2017-11-27 19:20] LABS: ALB/GLOB RATIO 0.9 (1.0-2.1); ALBUMIN 3.2 g/dL (3.5-5.0); AST/SGOT 17 U/L (14-36); BLOOD UREA NITROGEN 13 mg/dL (7-17); GFR AFRICAN-AMERICAN > 60; GFR NON-AFRICAN AMERICAN > 60; LIPASE 36 U/L (23-300)
[2017-11-27 19:30] LABS: ALT/SGPT 15 U/L (9-52); CALCIUM 8.5 mg/dl (8.6-10.4)
[2017-11-27 20:26] VITALS: BP 175/74; PULSE 68; RESP 20; TEMP 99.8; O2SAT 98
[2017-11-27 21:07] LABS: ANISOCYTOSIS SLIGHT; BANDS 2 % (0-2); HYPOCHROMIC SLIGHT; LYMPHOCYTE 10 % (20-40); MICROCYTOSIS SLIGHT; MONOCYTE 10 % (0-10); NEUTROPHIL 78 % (50-75); PLATELET ESTIMATE NORMAL (NORMAL); POIKILOCYTOSIS SLIGHT; TOTAL CELLS COUNTED 100
--- NOTE | 2017-11-28 08:28 | RAD ---
Abdomen four views History: Abdominal pain. Comparison: 11/27/2017 Findings: Biapical pleural thickening. Diffuse increased interstitial lung markings. Mild nodularity of the left costophrenic angle. Large rounded radiopaque calcifications/calculi project over the right cherrie abdomen. Correlation with right upper quadrant abdominal ultrasound and or noncontrast CT scan may be helpful for further evaluation clinically indicated. Fecal retention in the colon. Few mildly distended loops of small bowel in the left lower abdomen. Mild venous congestion. Patchy increased markings at the lung bases. Elevated right hemidiaphragm. Tortuous aorta. Calcification at aortic knob. Degenerative changes in the spine. Impression: Large rounded radiopaque calcifications/calculi project over the right cherrie abdomen. Correlation with right upper quadrant abdominal ultrasound and or noncontrast CT scan may be helpful for further evaluation clinically indicated. Fecal retention in the colon. Few mildly distended loops of small bowel in the left lower abdomen.
== END 2017-11-27 20:40 | disposition home or self-care (01) ==
LOC: C.ER 17:03
DX: R10.84 Generalized abdominal pain (principal)

== ENCOUNTER 2017-12-01 05:51 | Day surgery (SDC) | payer MEDICARE ==
[2017-11-26 09:39] VITALS: BMI 31.1
[2017-12-01] MEDS ORDERED: Bupivacaine HCl 0.25% PF (30 ml) Inj ONE (11:26)
[2017-12-01] MEDS ORDERED: ceFAZolin 1 gm in NS 2 GM/200 ML BAG IVPB ONE (11:26)
[2017-12-01] MEDS ORDERED: Lactated Ringer's 1,000 ML IV ONE (11:35)
[2017-12-01] MEDS ORDERED: Lidocaine/Epinephrine 1% 1:100000 10 ML IJ ONE (11:40)
--- NOTE | 2017-12-01 12:25 | PCM.SURG1 ---
Surgeon's Initial Post Op Note - Surgeon's Notes Surgeon: nancy Sales And Merchandising Representative: 0 Type of Anesthesia: General LMA Anesthesia Administered By: mercy Pre-Operative Diagnosis: lymoadenopathy Operative Findings: very small nodes. findings on ct scan not confirmed. 2 small sub cm nodes removed Post-Operative Diagnosis: same Operation Performed: left inguinal node bx Specimen/Specimens Removed: 2 nodes Estimated Blood Loss: EBL {In ML}: 10 Blood Products Given: N/A Drains Used: No Drains Post-Op Condition: Good Date of Surgery/Procedure: 12/01/17 Time of Surgery/Procedure: 12:25
[2017-12-01] MEDS ORDERED: Oxycodone/Acetaminophen 5/325 mg Tab PO PRN (12:26)
[2017-12-01] MEDS ORDERED: HYDROmorphone 0.5 mg/0.5 ml ISec IVP PRN (12:45)
[2017-12-01 15:09] VITALS: BP 131/61; PULSE 88; RESP 20; TEMP 97.7; O2SAT 98
--- NOTE | 2017-12-03 06:42 | OP ---
PROCEDURE DATE: 12/01/2017 PREOPERATIVE DIAGNOSIS: Lymphadenopathy, history of cervical and breast cancer. PROCEDURE CARRIED OUT: Left inguinal node biopsy. SURGEON: Rm Garcia Jr., MD WINDOW GLAZIER HELPER: None. ANESTHESIOLOGIST: Dr. Osei. ANESTHESIA: General anesthesia. INDICATIONS: Elderly woman with remote history of both breast and cervical cancer, multiple paraaortic nodes; however, now presents with what was seen to be on the CAT scan, lymphadenopathy on the groin. On ultrasound exam, immediately preoperatively, I did not notice any big as described on the CAT scan. However, when we exported it initially with the lower incision, we were able to identify a lymphatic tissue. Then in the groin, there were 2 distinct areas of lymphatic tissue in the subcentimeter nodes which was sent for examination. After hemostasis was obtained, wound was closed with skin clips, thin nylon sutures were placed. Blood loss was 10 mL. Operation carried out is left inguinal node biopsy. Rm Garcia Jr., MD
== END 2017-12-01 14:00 | disposition home or self-care (01) ==
LOC: C.SDS 05:51
PROVIDERS: ATTEND Surgery Vascular Surgery
DX: R59.9 Enlarged lymph nodes, unspecified (principal); Z85.3 Personal history of malignant neoplasm of breast; Z85.41 Personal history of malignant neoplasm of cervix uteri; Z98.890 Other specified postprocedural states
CPT/HCPCS: 38500; 82948; 88307; 88342; J0690; J3010; J7120

== ENCOUNTER 2018-01-15 23:27 | Emergency (ER) | payer MEDICARE ==
[2018-01-15 23:27] VITALS: BMI 28.1
[2018-01-15 23:52] VITALS: PULSE 92
--- NOTE | 2018-01-16 00:08 | C.PDOC ---
History Of Present Illness 72 year old female brought in by family member after feeling some chest discomfort at home. Patient reports having an outpatient blood transfusion this afternoon for anemia. Denies any pain or complaints at this time. Chief Complaint (Nursing): Shortness Of Breath History Per: Patient History/Exam Limitations: no limitations Onset/Duration Of Symptoms: Hrs Current Symptoms Are (Timing): Gone Associated Symptoms: Chest Pain. denies: Fever, Chills Recent travel outside of the [place]: No Past Medical History Reviewed: Historical Data, Nursing Documentation, Vital Signs Vital Signs: Last Vital Signs Temp 100 F H 01/16/18 01:20 Pulse 92 H 01/16/18 01:20 Resp 24 01/16/18 01:20 BP 172/82 H 01/16/18 01:20 Pulse Ox 97 01/16/18 01:37 - Medical History PMH: Anemia, Diabetes, Gall Bladder Disease, HTN, Malignancy (Cervical CA, Left Breast CA), Osteoporosis Surgical History: Endoscopy - [facility] Procedures EXCISION OF DESCENDING COLON, ENDO, DIAGN (11/23/17) EXCISION OF SIGMOID COLON, ENDO, DIAGN (11/23/17) EXCISION OF STOMACH, ENDO, DIAGN (11/23/17) Family History: States: Unknown Family Hx - Social History Hx Alcohol Use: No Hx Substance Use: No - Immunization History Hx Tetanus Toxoid Vaccination: No Hx Influenza Vaccination: No Hx Pneumococcal Vaccination: Yes Review Of Systems Constitutional: Negative for: Fever, Chills Cardiovascular: Positive for: Chest Pain. Negative for: Palpitations Respiratory: Negative for: Cough, Shortness of Breath Gastrointestinal: Negative for: Nausea, Vomiting Physical Exam - Physical Exam Appears: Non-toxic, No Acute Distress Skin: Normal Color, Warm, Dry Head: Atraumatic, Normacephalic Eye(s): bilateral: Normal Inspection, Conjunctiva Pale (Slightly) Oral Mucosa: Moist Chest: Symmetrical, No Tenderness Cardiovascular: Rhythm Regular Respiratory: Normal Breath Sounds, No Rales, No Rhonchi, No Wheezing Gastrointestinal/Abdominal: Soft, No Tenderness Neurological/Psych: Oriented x3, Normal Speech ED Course And Treatment - Laboratory Results Result Diagrams: 01/16/18 00:36 01/16/18 00:36 ECG: Interpreted By Me, Viewed By Me ECG Rhythm: Sinus Tachycardia, ST/T Changes, Nonspecific Changes ECG Interpretation: No Acute Changes, Abnormal Interpretation Of ECG: Sinus tachycardia, non-spc ST-T changes, abnormal tracings. Rate From EC O2 Sat by Pulse Oximetry: 97 (Room air) Pulse Ox Interpretation: Normal Progress Note: Blood work ordered. Tylenol administered. Dr. Sawyer spoke with patient concerning admission, however, patient refuses to be admitted and will sign out AMA. Disposition Discussed With Dr.: Eben Freeman Counseled Patient/Family Regarding: Diagnosis - Disposition Disposition: AGAINST MEDICAL ADVICE Disposition Time: 01:36 Condition: STABLE Forms: [employer] ([employer]) - POA Present On Arrival: None - Clinical Impression Clinical Impression: Transfusion reaction - Scribe Statement The provider has reviewed the documentation as recorded by the Scribe Terry White All medical record entries made by the Scribe were at my direction and personally dictated by me. I have reviewed the chart and agree that the record accurately reflects my personal performance of the history, physical exam, medical decision making, and the department course for this patient. I have also personally directed, reviewed, and agree with the discharge instructions and disposition.
[2018-01-16 00:39] LABS: BASO # 0.1 K/uL (0.0-0.2); BASO % 0.5 % (0.0-2.0); EOS % 0.1 % (0.0-4.0); HEMOGLOBIN 10.5 g/dL (11.0-16.0); LYMPH # 0.5 K/uL (1.0-4.3); LYMPH % 4.1 % (20.0-40.0); MEAN CORPUSCULAR HEMOGLOBIN 22.3 pg (27.0-31.0); MEAN CORPUSCULAR HGB CONC 32.4 g/dL (33.0-37.0); MEAN PLATELET VOLUME 9.2 fL (7.2-11.7); MONO # 1.5 K/uL (0.0-0.8); MONO % 11.6 % (0.0-10.0); NEUT % 83.7 % (50.0-75.0); NRBC % 1.1 % (0.0-2.0); PLATELET COUNT 258 K/uL (130-400); RBC 4.73 Mil/uL (3.80-5.20); RED CELL DISTRIBUTION WIDTH 26.6 % (11.5-14.5); WHITE BLOOD COUNT 13.2 K/uL (4.8-10.8)
[2018-01-16 01:05] LABS: INR 1.4; PROTHROMBIN TIME 15.2 SECONDS (9.7-12.2)
[2018-01-16 01:07] LABS: ALB/GLOB RATIO 0.9 (1.0-2.1); ALBUMIN 3.4 g/dL (3.5-5.0); ALT/SGPT 68 U/L (9-52); AST/SGOT 66 U/L (14-36); BLOOD UREA NITROGEN 22 mg/dL (7-17); GFR AFRICAN-AMERICAN > 60; GFR NON-AFRICAN AMERICAN > 60
[2018-01-16 01:21] VITALS: BP 172/82; RESP 24; TEMP 100; O2SAT 97
[2018-01-16 02:09] LABS: ANISOCYTOSIS SLIGHT; BANDS 2 % (0-2); LYMPHOCYTE 5 % (20-40); MONOCYTE 13 % (0-10); NEUTROPHIL 80 % (50-75); NUCLEATED RED BLOOD CELL 1 % (0-0); PLATELET ESTIMATE NORMAL (NORMAL); POIKILOCYTOSIS SLIGHT; POLYCHROMIC SLIGHT; TOTAL CELLS COUNTED 100
--- NOTE | 2018-01-16 12:02 | CARD ---
APPROVED REPORT Date of service: 01/15/2018 EKG Measurement Heart [id number] <Conclusion> Sinus tachycardia Nonspecific ST and T wave abnormality Abnormal ECG
== END 2018-01-16 01:40 | disposition left against medical advice (07) ==
LOC: C.ER 23:27
DX: T80.92XA Unspecified transfusion reaction, initial encounter (principal); Y84.9 Medical procedure, unspecified as the cause of abnormal reaction of the patient, or of later complication, without mention of misadventure at the time of the procedure

== ENCOUNTER 2018-01-27 09:06 | Day surgery (SDC) | payer MEDICARE ==
[2018-01-21 10:09] VITALS: BMI 28.4
[2018-01-27] MEDS ORDERED: Dextrose 50% SYRINGE Inj (50 ml) ONE ×2 (09:29→11:36)
[2018-01-27] MEDS ORDERED: Midazolam 2 MG/2 ML VIAL ONE (10:39)
--- NOTE | 2018-01-27 11:07 | CP.SDSHP ---
Same Day Surgery H & P - History Proposed Procedure: CT guided retroperitoneal lymph node biopsy Pre-Op Diagnosis: retroperitoneal lymph adenopathy - Allergies Allergies: Allergies No Known Allergies Allergy (Verified 01/15/18 23:52) - Physical Exam Mental Status: Alert & Oriented x3 Neuro: WNL Heart: WNL Lungs: WNL - Impression Impression: Pt with retroperitoneal adenopathy and possible omental carcimatosis. Plan CT guided retroperitoneal lymph node biopsy. Informed consent obtained. Pt. Evaluated Today:Candidate for Anesthesia & Procedure: Yes (ASA 3 Malampati 4) Short Stay Discharge - Short Stay Discharge Admitting Diagnosis/Reason for Visit: DX-ABDOMINAL MASS Disposition: HOME/ ROUTINE
--- NOTE | 2018-01-27 11:08 | PCM.SURG1 ---
Surgeon's Initial Post Op Note - Surgeon's Notes Surgeon: Andrew Jung MD Electrical Assistant: NONE Type of Anesthesia: IV Sedation Pre-Operative Diagnosis: Retroperitoneal adenopathy Operative Findings: Enlarged para-aortic lymph nodes Post-Operative Diagnosis: Retroperitoneal adenopathy Operation Performed: CT guided retroperitoneal lymph node biopsy Specimen/Specimens Removed: 18 gauge core x 3 Estimated Blood Loss: EBL {In ML}: 2 Blood Products Given: N/A Drains Used: No Drains Post-Op Condition: Fair Date of Surgery/Procedure: 01/27/18 Time of Surgery/Procedure: 11:00
--- NOTE | 2018-01-29 08:55 | CT ---
PROCEDURE: < Date of procedure: 01/27/2018 Procedure: 1. CT-guided biopsy of retroperitoneal lymph node, CPT [address] guidance for procedure, [address] Radiation: 1259.83 mGy-cm Medications: The patient sedated by the anesthesiologist with IV sedation, 1 percent lidocaine HISTORY: Patient with enlarged left para-aortic lymph node TECHNIQUE: Following informed consent and procedure time-out, the patient was placed prone on the CT table and noncontrast CT scan was performed. The non contrast CT scan confirmed the presence of a 3.2 centimeter left para-aortic lymph node. A skin localizer was placed on patient's back and repeat CT scan performed. Her back was marked, prepped, and draped in the usual sterile fashion. After the patient was sedated by the anesthesiologist and the skin anesthetized with 1% lidocaine, an 18 gauge core biopsy needle was advanced percutaneously under CT guidance towards lymph node. Once the needle was confirmed to be within the lymph node, three core biopsy specimens were obtained and sent for routine pathology. The biopsy tract was embolized with gelofam. A post biopsy CT scan showed no hematoma. IMPRESSION: CT-guided biopsy core biopsy of left para-aortic lymph node.
== END 2018-01-27 13:25 | disposition home or self-care (01) ==
LOC: C.SPRAD 09:06
PROVIDERS: ATTEND Radiology Vascular & Interventional Radiology
DX: C83.33 Diffuse large B-cell lymphoma, intra-abdominal lymph nodes (principal)
CPT/HCPCS: 38505; 77012; 82948; 88305; 88342; J2250; J3010

== ENCOUNTER 2018-01-28 08:41 | Inpatient (IN) | payer MEDICARE ==
--- NOTE | 2018-01-27 14:58 | CT ---
PROCEDURE: < Date of procedure: 01/27/2018 Procedure: 1. CT-guided biopsy of retroperitoneal lymph node, CPT [address] guidance for procedure, 13228 Radiation: 1259.83 mGy-cm Medications: The patient sedated by the anesthesiologist with IV sedation, 1 percent lidocaine HISTORY: Patient with enlarged left para-aortic lymph node TECHNIQUE: Following informed consent and procedure time-out, the patient was placed prone on the CT table and noncontrast CT scan was performed. The non contrast CT scan confirmed the presence of a 3.2 centimeter left para-aortic lymph node. A skin localizer was placed on patient's back and repeat CT scan performed. Her back was marked, prepped, and draped in the usual sterile fashion. After the patient was sedated by the anesthesiologist and the skin anesthetized with 1% lidocaine, an 18 gauge core biopsy needle was advanced percutaneously under CT guidance towards lymph node. Once the needle was confirmed to be within the lymph node, three core biopsy specimens were obtained and sent for routine pathology. The biopsy tract was embolized with gelofam. A post biopsy CT scan showed no hematoma. IMPRESSION: CT-guided biopsy core biopsy of left para-aortic lymph node.
[2018-01-28 08:41] VITALS: BMI 28.4
--- NOTE | 2018-01-28 09:28 | C.PDOC ---
History Of Present Illness 72 y/o female with history of COPD, Anemia, DM, Left breast CA, cervical CA in remission, presents to ED for evaluation of weakness, decreased appetite and diffuse abdominal pain intermittent for "few weeks". Patient was seen by PMD yesterday, who advised patient be admitted to Dr. Ann for further evaluation. Asper family, pt had yesterday, 01/27/18, procedure performed by : CT guided retroperitoneal lymph node biopsy due to retroperitoneal adenopathy r/o possible omental carcimatosis/lymphoma. At the time of evaluation , pt appears chronically ill, c/o SOB " unable to breath", appears anxious. Time Seen by Provider: 01/28/18 09:13 Chief Complaint (Nursing): Medical Clearance History Per: Patient History/Exam Limitations: no limitations Onset/Duration Of Symptoms: Days Current Symptoms Are (Timing): Still Present Past Medical History Reviewed: Historical Data, Nursing Documentation, Vital Signs Vital Signs: Last Vital Signs Temp 97.3 F L 01/28/18 15:47 Pulse 104 H 01/28/18 15:23 Resp 28 H 01/28/18 15:23 BP 143/70 01/28/18 15:23 Pulse Ox 95 01/28/18 15:23 - Medical History PMH: Anemia, Diabetes, Gall Bladder Disease, HTN, Malignancy (Cervical CA, Left Breast CA), Osteoporosis Surgical History: Endoscopy - [facility] Procedures EXCISION OF DESCENDING COLON, ENDO, DIAGN (11/23/17) EXCISION OF SIGMOID COLON, ENDO, DIAGN (11/23/17) EXCISION OF STOMACH, ENDO, DIAGN (11/23/17) Family History: States: No Known Family Hx - Social History Hx Alcohol Use: No Hx Substance Use: No - Immunization History Hx Tetanus Toxoid Vaccination: No Hx Influenza Vaccination: No Hx Pneumococcal Vaccination: Yes Review Of Systems Constitutional: Negative for: Fever, Chills Gastrointestinal: Positive for: Abdominal Pain. Negative for: Nausea, Vomiting Skin: Negative for: Rash Neurological: Positive for: Weakness. Negative for: Headache Physical Exam - Physical Exam Appears: Non-toxic, Chronically Ill, Other (Sick) Skin: Warm, Dry, Pale, No Rash Head: Normacephalic Eye(s): bilateral: PERRL, Conjunctiva Pale Nose: No Flaring, No Discharge Oral Mucosa: Dry Throat: No Drooling Neck: Trachea Midline, Supple Cardiovascular: Rhythm Regular (tachy), No Murmur, No JVD Respiratory: No Decreased Breath Sounds, No Accessory Muscle Use, No Rales, No Rhonchi, No Stridor, Wheezing (diffuse expiratory wheezing B/L) Gastrointestinal/Abdominal: Soft, No Tenderness, Distention (diffuse), No Guarding, No Rebound Back: No CVA Tenderness Extremity: Normal ROM, No Tenderness, Capillary Refill (<2 seconds), No Deformity, Other (bilatral diffuse lower leg edema, non-pitting) Neurological/Psych: Oriented x3, Normal Speech, Normal Cognition, Normal Motor, Normal Sensation, Normal Reflexes ED Course And Treatment - Laboratory Results Result Diagrams: 01/28/18 10:14 01/28/18 10:14 ECG: Interpreted By Me, Viewed By Me Interpretation Of ECG: Sinus tachy@103/min, LAD, no acute T wave or ST-T changes. O2 Sat by Pulse Oximetry: 96 (RA) Pulse Ox Interpretation: Normal - CT Scan/US CTA r/o PE Other Rad Studies (CT/US): Radiology Report Reviewed CT/US Interpretation: Creator : Elizabeth Harden. Dictator : Alon Walden MD. Medical Assistant Secretary : Data Officer : Alon Walden MD. Approver2 : Report Date : 01/28/2018 12:00:15. My Comment : . Date of service: 2017. PROCEDURE: CT Chest with contrast (Pulmonary Angiogram). HISTORY: SOB. COMPARISON: None available. TECHNIQUE: Axial computed tomography images were obtained of the chest in the pulmonary arterial phase of enhancement. Coronal and sagittal reformatted images were created and reviewed. Intravenous contrast dose: 100 mL Visipaque 320. Radiation dose: Total exam DLP = 421.90 mGy-cm. This CT exam was performed using one or more of the following dose reduction techniques: Automated exposure control, adjustment of the mA and/or kV according to patient size, and/or use of iterative reconstruction technique. FINDINGS: PULMONARY ARTERIES: Unremarkable. No pulmonary embolism. AORTA: No acute findings. No thoracic aortic aneurysm. LUNGS: Bibasilar linear scar/ atelectasis. 6 mm subpleural nodule in lingular segment left upper lobe. Small ill-defined opacity in left upper lobe, series 4 image 41. Small ill-defined opacity right upper lobe anterior segment, series 4 , image 36. No pulmonary infiltrate. PLEURAL SPACES: Unremarkable. No effusion or pneumothorax. HEART: Normal heart size. No pericardial effusion. Coronary arterial calcification noted. LYMPH NODES: Extensive mediastinal and bilateral hilar lymphadenopathy. Lower paraesophageal lymphadenopathy. Bilateral retrocrural lymphadenopathy. Epicardial lymphadenopathy. Large mantle of retroperitoneal lymphadenopathy. Mesenteric lymph nodes noted. BONES , CHEST WALL: Unremarkable. No fracture or destructive lesion. OTHER FINDINGS : Cholelithiasis. Ascites. Splenomegaly. IMPRESSION: No evidence of pulmonary embolism. Extensive mediastinal, hilar, retroperitoneal, epicardial, paraesophageal and mesenteric lymphadenopathy in conjunction with splenomegaly. Concerning for lymphoproliferative disorder. 6 mm left upper lobe nodule, nonspecific. Several small ill-defined opacities as described. Recommend six- month short interval follow-up chest CT examination for the lingular nodule. Ascites. Cholelithiasis. . Progress Note: Pt was OBS in ED for 3 hours and remained significantly unchanged , still c/o SOB, appears tachy, tachypnic, anxious, diaphoretic. Mild hydration , Neb tx, Steroid given. After blood cx, ucx performed, pt received ABx tx for SOB r/o PNA, and UTI. case discussed with and admission arranged to tele. Critical Care Time - Critical Care Note Total Time (in mins): 40 Documented critical care: time excludes all time spent performing seperately billable procedures. Disposition - Disposition Disposition: HOSPITALIZED Disposition Time: 11:42 Condition: FAIR - Clinical Impression Clinical Impression: COPD exacerbation, Dehydration, CHF (congestive heart failure) - PA / DRAMA PROFESSOR / Resident Statement MD/DO has reviewed & agrees with the documentation as recorded. - Scribe Statement The provider has reviewed the documentation as recorded by the Cassi Dotson All medical record entries made by the Cassi were at my direction and personally dictated by me. I have reviewed the chart and agree that the record accurately reflects my personal performance of the history, physical exam, medical decision making, and the department course for this patient. I have also personally directed, reviewed, and agree with the discharge instructions and disposition.
[2018-01-28] MEDS ORDERED: Albuterol-Ipratrop 3 mg / 0.5 (3 ml) UD IH STA (09:29)
[2018-01-28] MEDS ORDERED: Sodium Chloride 0.9% 1,000 ML IV ONE (09:30)
[2018-01-28 10:23] LABS: BASO % 0.9 % (0.0-2.0); HEMOGLOBIN 8.2 g/dL (11.0-16.0); LYMPH # 0.2 K/uL (1.0-4.3); LYMPH % 1.9 % (20.0-40.0); MEAN CELL VOLUME 70.1 fL (81.0-99.0); MEAN CORPUSCULAR HEMOGLOBIN 23.3 pg (27.0-31.0); MEAN CORPUSCULAR HGB CONC 33.3 g/dL (33.0-37.0); MEAN PLATELET VOLUME 11.4 fL (7.2-11.7); MONO # 1.2 K/uL (0.0-0.8); MONO % 13.5 % (0.0-10.0); NEUT # 7.3 K/uL (1.8-7.0); NEUT % 83.7 % (50.0-75.0); NRBC % 0.1 % (0.0-2.0); PLATELET COUNT 173 K/uL (130-400); RBC 3.51 Mil/uL (3.80-5.20); RED CELL DISTRIBUTION WIDTH 27.5 % (11.5-14.5); WHITE BLOOD COUNT 8.7 K/uL (4.8-10.8)
[2018-01-28] MEDS ORDERED: Albuterol-Ipratrop 3 mg / 0.5 (3 ml) UD ONE ×3 (10:23→11:27)
[2018-01-28 10:24] LABS: BASO # 0.1 K/uL (0.0-0.2)
[2018-01-28 10:26] LABS: SQUAMOUS EPITHIAL < 1 /hpf (0-5); URINE BACTERIA MANY (<OCC); URINE BILIRUBIN NEGATIVE (NEGATIVE); URINE BLOOD 2+ (NEGATIVE); URINE CLARITY Hazy (Clear); URINE COLOR Amber (YELLOW); URINE GLUCOSE (UA) NORMAL (Normal); URINE LEUKOCYTE ESTERASE 1+ Leu/uL (Negative); URINE PROTEIN 1+ mg/dL (NEGATIVE)
[2018-01-28] MEDS ORDERED: Moxifloxacin IV 400mg/250ml NS 400 MG/250 ML BAG IV STA (10:28)
[2018-01-28] MEDS ORDERED: cefTRIAXone IV 1 gm in Dextros 50 ML IV STA (10:28)
[2018-01-28 10:30] LABS: INR 1.5; PROTHROMBIN TIME 15.9 SECONDS (9.7-12.2)
[2018-01-28] MEDS ORDERED: cefTRIAXone IV 1 gm in Dextros 50 ML IVPB ONE (10:44)
[2018-01-28 10:59] LABS: BANDS 1 % (0-2); LYMPHOCYTE 4 % (20-40); MONOCYTE 14 % (0-10); NEUTROPHIL 80 % (50-75); REACTIVE LYMPHOCYTES 1 % (0-0); TOTAL CELLS COUNTED 100
[2018-01-28 11:00] LABS: ANISOCYTOSIS MODERATE; HYPOCHROMIC MODERATE; PLATELET ESTIMATE NORMAL (NORMAL); TARGET CELLS SLIGHT
[2018-01-28 11:04] LABS: B-TYPE NATRIURETIC PEPTIDE 1850 pg/mL (0-900)
[2018-01-28 11:09] LABS: ALB/GLOB RATIO 0.8 (1.0-2.1); ALBUMIN 2.4 g/dL (3.5-5.0); ALT/SGPT 77 U/L (9-52); AST/SGOT 62 U/L (14-36); BLOOD UREA NITROGEN 21 mg/dL (7-17); CALCIUM 9.6 mg/dl (8.6-10.4); GFR NON-AFRICAN AMERICAN > 60
[2018-01-28] MEDS ORDERED: Moxifloxacin IV 400mg/250ml NS 400 MG/250 ML BAG IVPB ONE (11:15)
[2018-01-28 11:51] LABS: VENOUS BLOOD GAS BASE EXCESS 3.5 mmol/L (0.0-2.0); VENOUS BLOOD GAS PCO2 40 mmHg (40-60); VENOUS BLOOD GAS PO2 57 mm/Hg (30-55); VENOUS BLOOD PH 7.45 (7.32-7.43)
--- NOTE | 2018-01-28 12:41 | CT ---
Date of service: 01/28/2018 PROCEDURE: CT Chest with contrast (Pulmonary Angiogram) HISTORY: SOB COMPARISON: None available. TECHNIQUE: Axial computed tomography images were obtained of the chest in the pulmonary arterial phase of enhancement. Coronal and sagittal reformatted images were created and reviewed. Intravenous contrast dose: 100 mL Visipaque 320 Radiation dose: Total exam DLP = 421.90 mGy-cm. This CT exam was performed using one or more of the following dose reduction techniques: Automated exposure control, adjustment of the mA and/or kV according to patient size, and/or use of iterative reconstruction technique. FINDINGS: PULMONARY ARTERIES: Unremarkable. No pulmonary embolism. AORTA: No acute findings. No thoracic aortic aneurysm. LUNGS: Bibasilar linear scar/ atelectasis. 6 mm subpleural nodule in lingular segment left upper lobe. Small ill-defined opacity in left upper lobe, series 4 image 41. Small ill-defined opacity right upper lobe anterior segment, series 4, image 36. No pulmonary infiltrate. PLEURAL SPACES: Unremarkable. No effusion or pneumothorax. HEART: Normal heart size. No pericardial effusion. Coronary arterial calcification noted. LYMPH NODES: Extensive mediastinal and bilateral hilar lymphadenopathy. Lower paraesophageal lymphadenopathy. Bilateral retrocrural lymphadenopathy. Epicardial lymphadenopathy. Large mantle of retroperitoneal lymphadenopathy. Mesenteric lymph nodes noted. BONES, CHEST WALL: Unremarkable. No fracture or destructive lesion OTHER FINDINGS: Cholelithiasis. Ascites. Splenomegaly. IMPRESSION: No evidence of pulmonary embolism. Extensive mediastinal, hilar, retroperitoneal, epicardial, paraesophageal and mesenteric lymphadenopathy in conjunction with splenomegaly. Concerning for lymphoproliferative disorder. 6 mm left upper lobe nodule, nonspecific. Several small ill-defined opacities as described. Recommend six-month short interval follow-up chest CT examination for the lingular nodule. Ascites. Cholelithiasis.
[2018-01-28] MEDS ORDERED: Enoxaparin 40 mg Syringe ONE (15:29)
[2018-01-28] MEDS: Enoxaparin 40 mg Syringe SC SCH (15:30)
--- NOTE | 2018-01-28 15:34 | CP.PCM.CON ---
<Ines Frias P - Last Filed: 01/28/18 18:03> History of Present Illness - History of Present Illness History of Present Illness: PGY-1 critical care consult note. Patient is a 72 year old female with PMHx of HTN, DM, Anemia requiring multiple transfusions, L breast cancer, cervical cancer who presented to the ED for increasing shortness of breath. Patient states shortness of breath has been intermittent for the past week and worsened today. Treatment with ventolin inhaler at home provided no improvement of symptoms. Associated symptoms include subjective fever and diaphoresis. Patient's daughter states patient has increased lower extremity swelling for the past 2 weeks and low blood pressure for the last 2 days. Patient states she feels better after recieving Duonebs, lasix 20mg, Solumedrol 125mg, morphine 2mg, and IV antibiotics in the ED. Patient denies chest pain, dizziness, and lightheadedness. ICU was consulted due to shortness of breath. CT scan done in ED: No evidence of pulmonary embolism. Extensive mediastinal, hilar, retroperitoneal, epicardial, paraesophageal and mesenteric lymphadenopathy in conjunction with splenomegaly. Concerning for lymphoproliferative disorder. 6 mm left upper lobe nodule, nonspecific. Several small ill-defined opacities as described. Recommend six-month short interval follow-up chest CT examination for the lingular nodule. Ascites. Cholelithiasis. PMHx: Anemia requiring multiple transfusions, HTN, DM, L breast cancer, cervical cancer (in remission) PSHx: Hysterectomy (1978), L mastectomy (1998), Meds: amlodipine 5mg PO daily, Prochlorperazine 5mg PO TID, Pioglitazone 30mg PO QPM, Omeprazole 40mg PO daily, hydralazine 25mg PO BID, Ferrous sulfate 325mg PO BID, Vitamin D 50,000units Qweek, albuterol 2 pull Q6H PRN, metoprolol succinate 50mg PO daily, lisinopril/HCTZ 20-12.5 mg PO daily, Glimepiride 2mg PO BID Allergies: [place] Review of Systems - Review of Systems All systems: reviewed and no additional remarkable complaints except (As per HPI ) Past Patient History - Infectious Disease Hx of Infectious Diseases: None - Past Medical History & Family History Past Medical History?: Yes - Past Social History Smoking Status: Former Smoker - CARDIAC Hx Hypertension: Yes - PULMONARY Hx Respiratory Disorders: Yes (ABN CT SCAN) - NEUROLOGICAL Hx Neurological Disorder: No - HEENT Hx HEENT Problems: No - RENAL Hx Chronic Kidney Disease: No - ENDOCRINE/METABOLIC Hx Endocrine Disorders: Yes Hx Diabetes Mellitus Type 2: Yes - HEMATOLOGICAL/ONCOLOGICAL Hx Anemia: Yes - INTEGUMENTARY Hx Dermatological Problems: No - MUSCULOSKELETAL/RHEUMATOLOGICAL Hx Osteoporosis: Yes - GASTROINTESTINAL Hx Gall Bladder Disease: Yes - GENITOURINARY/GYNECOLOGICAL Hx Genitourinary Disorders: Yes Hx Cervical Cancer: Yes Hx Urinary Tract Infection: Yes (TREATED) - PSYCHIATRIC Hx Substance Use: No - SURGICAL HISTORY Hx Surgeries: Yes Hx Hysterectomy: Yes (40 yrs.ago) Hx Mastectomy: Yes (1998-surgery) Other/Comment: 1978-stomack/cervical - ANESTHESIA Hx Anesthesia: Yes Hx Anesthesia Reactions: No Hx Malignant Hyperthermia: No Meds Allergies/Adverse Reactions: Allergies Allergy/AdvReac Type Severity Reaction Status Date / Time strawberry Allergy Intermediate ITCHING Verified 01/28/18 09:03 - Medications Medications: Current Medications Albuterol/Ipratropium (Duoneb 3 Mg/0.5 Mg (3 Ml) Ud) 3 ml INH RQ6 [facility] Amlodipine Besylate (Norvasc) 5 mg PO DAILY [facility] Enoxaparin Sodium (Lovenox) 40 mg SC DAILY [facility] Last Admin: 01/28/18 15:30 Dose: 40 mg Ferrous Sulfate (Feosol) 325 mg PO BID [facility] Furosemide (Lasix) 40 mg IVP DAILY [facility] Glimepiride (Amaryl) 2 mg PO BID [facility] Hydralazine HCl (Apresoline) 25 mg PO BID [facility] Hydrochlorothiazide (Microzide) 12.5 mg PO DAILY [facility] Ceftriaxone Sodium (Rocephin Iv 1 Gm Duplex) 50 mls @ 100 mls/hr IVPB DAILY [facility] PRN Reason: Protocol Azithromycin 500 mg/ Sodium (Chloride) 250 mls @ 167 mls/hr IVPB DAILY [facility] PRN Reason: Protocol Lisinopril (Zestril) 20 mg PO DAILY [facility] Methylprednisolone (Solu-Medrol) 40 mg IVP Q8 [facility] Metoprolol Succinate (Toprol Xl) 50 mg PO DAILY [facility] Morphine Sulfate (Morphine) 2 mg IVP Q4 PRN PRN Reason: Pain, severe (8-10) Multivitamins (Hexavitamin) 1 tab PO DAILY [facility] Pantoprazole Sodium (Protonix Ec Tab) 40 mg PO DAILY [facility] Pioglitazone HCl (Actos) 30 mg PO QPM [facility] Physical Exam - Head Exam Head Exam: ATRAUMATIC, NORMOCEPHALIC - Eye Exam Eye Exam: EOMI - ENT Exam ENT Exam: Mucous Membranes Moist - Respiratory Exam Respiratory Exam: Wheezes (diffusely). absent: Rales, Rhonchi - Cardiovascular Exam Cardiovascular Exam: Tachycardia, +S1, +S2 - GI/Abdominal Exam GI & Abdominal Exam: Distended, Normal Bowel Sounds. absent: Guarding, Tenderness - Extremities Exam Extremities exam: Positive for: pedal edema (1+ pitting, bilateral lower extremities) - Neurological Exam Neurological exam: Alert, CN II-XII Intact - Psychiatric Exam Psychiatric exam: Anxious - Skin Skin Exam: Diaphoretic, Normal Color, Warm Results - Vital Signs Recent Vital Signs: Last Vital Signs Temp 98.5 F 01/28/18 12:52 Pulse 104 H 01/28/18 15:23 Resp 28 H 01/28/18 15:23 BP 143/70 01/28/18 15:23 Pulse Ox 95 01/28/18 15:23 - Labs Result Diagrams: 01/28/18 10:14 01/28/18 10:14 Labs: Laboratory Results - last 24 hr 01/28/18 01/28/18 01/28/18 10:13 10:14 10:14 WBC 8.7 RBC 3.51 L Hgb 8.2 L Hct 24.6 L MCV 70.1 L D MCH 23.3 L MCHC 33.3 RDW 27.5 H Plt Count 173 MPV 11.4 Neut % (Auto) 83.7 H Lymph % (Auto) 1.9 L Emmet % (Auto) 13.5 H Eos % (Auto) 0.0 Baso % (Auto) 0.9 Neut # (Auto) 7.3 H Lymph # (Auto) 0.2 L Emmet # (Auto) 1.2 H Eos # (Auto) 0.0 Baso # (Auto) 0.1 Neutrophils % (Manual) 80 H Band Neutrophils % 1 Lymphocytes % (Manual) 4 L Reactive Lymphs % 1 H Monocytes % (Manual) 14 H Platelet Estimate Normal Hypochromasia (manual) Moderate Anisocytosis (manual) Moderate Target Cells Slight PT 15.9 H INR 1.5 APTT 30 pO2 VBG pH VBG pCO2 VBG HCO3 VBG Total CO2 VBG O2 Sat (Calc) VBG Base Excess VBG Potassium Glucose Lactate Sodium Potassium Chloride Carbon Dioxide Anion Gap BUN Creatinine Est GFR ( Amer) Est GFR (Non-Af Amer) POC Glucose (mg/dL) 101 Random Glucose Calcium Magnesium Total Bilirubin AST ALT Alkaline Phosphatase Troponin I NT-Pro-B Natriuret Pep Total Protein Albumin Globulin Albumin/Globulin Ratio TSH 3rd Generation Venous Blood Potassium Urine Color Urine Clarity Urine pH Ur Specific [place] Urine Protein Urine Glucose (UA) Urine Ketones Urine Blood Urine Nitrate Urine Bilirubin Urine Urobilinogen Ur Leukocyte Esterase Urine WBC (Auto) Urine RBC (Auto) Ur Squamous Epith Cells Urine Bacteria 01/28/18 01/28/18 01/28/18 10:14 10:14 11:48 WBC RBC Hgb Hct MCV MCH MCHC RDW Plt Count MPV Neut % (Auto) Lymph % (Auto) Emmet % (Auto) Eos % (Auto) Baso % (Auto) Neut # (Auto) Lymph # (Auto) Emm[place] # (Auto) Eos # (Auto) Baso # (Auto) Neutrophils % (Manual) Band Neutrophils % Lymphocytes % (Manual) Reactive Lymphs % Monocytes % (Manual) Platelet Estimate Hypochromasia (manual) Anisocytosis (manual) Target Cells PT INR APTT pO2 57 H VBG pH 7.45 H VBG pCO2 40 VBG HCO3 27.5 VBG Total CO2 29.0 H VBG O2 Sat (Calc) 92.4 H VBG Base Excess 3.5 H VBG Potassium 3.2 L Glucose 110 H Lactate 1.7 Sodium 132 134.0 Potassium 3.6 Chloride 96 L 99.0 Carbon Dioxide 31 H Anion Gap 10 BUN 21 H Creatinine 0.7 Est GFR ( Amer) > 60 Est GFR (Non-Af Amer) > 60 POC Glucose (mg/dL) Random Glucose 104 Calcium 9.6 Magnesium 1.7 Total Bilirubin 2.5 H AST 62 H ALT 77 H Alkaline Phosphatase 184 H D Troponin I 0.0190 NT-Pro-B Natriuret Pep 1850 H Total Protein 5.3 L Albumin 2.4 L D Globulin 3.0 Albumin/Globulin Ratio 0.8 L TSH 3rd Generation 1.09 Venous Blood Potassium 3.2 L Urine Color [place] Urine Clarity Hazy Urine pH 5.0 Ur Specific [place] 1.018 Urine Protein 1+ H Urine Glucose (UA) Normal Urine Ketones Negative Urine Blood 2+ H Urine Nitrate Negative Urine Bilirubin Negative Urine Urobilinogen 4.0 H Ur Leukocyte Esterase 1+ H Urine WBC (Auto) 26 H Urine RBC (Auto) 1 Ur Squamous Epith Cells < 1 Urine Bacteria Many H Assessment & Plan - Assessment and Plan (Free Text) Plan: Patient is a 72 year old female with PMHx of HTN, DM, Anemia requiring multiple transfusions, L breast cancer, cervical cancer who presented to the ED for increasing shortness of breath. Neurological: Analgesia: Morpine 2mg IVP Q4 PRN Cardiovascular: HCTZ 12.5mg daily Lisinopril 20mg Amlodipine 5mg PO daily Lasix 40mg IVP daily Hydralazine 25mg PO BID Metoprolol succinate 50mg PO daily IVF Respiratory: SpO2 95% on NC VBG: pO2: 57, pH 7.45, pCO2 40, lactate 1.7 Duonebs Methylprednisolone 40mg PO Daily Renal: BUN/Cr: 21/0.7 continue to monitor Infectious disease: WBC: 8.7 Azithromycin 500mg IV daily Hematology: H/H: 8.2/24.6 last blood transfusion was 01/22/18 continue to monitor Ferrous Sulfate 325mg PO BID Gastrointestinal: Pantoprazole 40mg PO daily Endocrine: Glimepiride 2mg PO BID Pioglitazone 30mg PO QPM Prophylaxis: Pantoprazole 40mg PO daily, Enoxaparin 40mg SC daily Patient does not need ICU management at this time. Stable for admission to med/ surg or telemetry. <Rosendo Bronson - Last Filed: 01/28/18 18:33> Meds - Medications Medications: Current Medications Albuterol/Ipratropium (Duoneb 3 Mg/0.5 Mg (3 Ml) Ud) 3 ml INH RQ6 [facility] Amlodipine Besylate (Norvasc) 5 mg PO DAILY [facility] Enoxaparin Sodium (Lovenox) 40 mg SC DAILY [facility] Last Admin: 01/28/18 15:30 Dose: 40 mg Ferrous Sulfate (Feosol) 325 mg PO BID [facility] Furosemide (Lasix) 40 mg IVP DAILY [facility] Glimepiride (Amaryl) 2 mg PO BID [facility] Hydralazine HCl (Apresoline) 25 mg PO BID [facility] Hydrochlorothiazide (Microzide) 12.5 mg PO DAILY [facility] Ceftriaxone Sodium (Rocephin Iv 1 Gm Duplex) 50 mls @ 100 mls/hr IVPB DAILY [facility] PRN Reason: Protocol Azithromycin 500 mg/ Sodium (Chloride) 250 mls @ 167 mls/hr IVPB DAILY [facility] PRN Reason: Protocol Lisinopril (Zestril) 20 mg PO DAILY [facility] Methylprednisolone (Solu-Medrol) 40 mg IVP Q8 [facility] Metoprolol Succinate (Toprol Xl) 50 mg PO DAILY [facility] Morphine Sulfate (Morphine) 2 mg IVP Q4 PRN PRN Reason: Pain, severe (8-10) Multivitamins (Hexavitamin) 1 tab PO DAILY [facility] Pantoprazole Sodium (Protonix Ec Tab) 40 mg PO DAILY [facility] Pioglitazone HCl (Actos) 30 mg PO QPM [facility] Results - Vital Signs Recent Vital Signs: Last Vital Signs Temp 97.4 F L 01/28/18 16:36 Pulse 104 H 01/28/18 16:36 Resp 20 01/28/18 16:36 BP 120/71 01/28/18 16:36 Pulse Ox 96 01/28/18 16:36 - Labs Result Diagrams: 01/28/18 10:14 01/28/18 10:14 Labs: Laboratory Results - last 24 hr 01/28/18 01/28/18 01/28/18 10:13 10:14 10:14 WBC 8.7 RBC 3.51 L Hgb 8.2 L Hct 24.6 L MCV 70.1 L D MCH 23.3 L MCHC 33.3 RDW 27.5 H Plt Count 173 MPV 11.4 Neut % (Auto) 83.7 H Lymph % (Auto) 1.9 L [place] % (Auto) 13.5 H Eos % (Auto) 0.0 Baso % (Auto) 0.9 Neut # (Auto) 7.3 H Lymph # (Auto) 0.2 L [place] # (Auto) 1.2 H Eos # (Auto) 0.0 Baso # (Auto) 0.1 Neutrophils % (Manual) 80 H Band Neutrophils % 1 Lymphocytes % (Manual) 4 L Reactive Lymphs % 1 H Monocytes % (Manual) 14 H Platelet Estimate Normal Hypochromasia (manual) Moderate Anisocytosis (manual) Moderate Target Cells Slight PT 15.9 H INR 1.5 APTT 30 pO2 VBG pH VBG pCO2 VBG HCO3 VBG Total CO2 VBG O2 Sat (Calc) VBG Base Excess VBG Potassium Glucose Lactate Sodium Potassium Chloride Carbon Dioxide Anion Gap BUN Creatinine Est GFR ( Amer) Est GFR (Non-Af Amer) POC Glucose (mg/dL) 101 Random Glucose Calcium Magnesium Total Bilirubin AST ALT Alkaline Phosphatase Troponin I NT-Pro-B Natriuret Pep Total Protein Albumin Globulin Albumin/Globulin Ratio TSH 3rd Generation Venous Blood Potassium Urine Color Urine Clarity Urine pH Ur Specific [place] Urine Protein Urine Glucose (UA) Urine Ketones Urine Blood Urine Nitrate Urine Bilirubin Urine Urobilinogen Ur Leukocyte Esterase Urine WBC (Auto) Urine RBC (Auto) Ur Squamous Epith Cells Urine Bacteria 01/28/18 01/28/18 01/28/18 10:14 10:14 11:48 WBC RBC Hgb Hct MCV MCH MCHC RDW Plt Count MPV Neut % (Auto) Lymph % (Auto) [place] % (Auto) Eos % (Auto) Baso % (Auto) Neut # (Auto) Lymph # (Auto) [place] # (Auto) Eos # (Auto) Baso # (Auto) Neutrophils % (Manual) Band Neutrophils % Lymphocytes % (Manual) Reactive Lymphs % Monocytes % (Manual) Platelet Estimate Hypochromasia (manual) Anisocytosis (manual) Target Cells PT INR APTT pO2 57 H VBG pH 7.45 H VBG pCO2 40 VBG HCO3 27.5 VBG Total CO2 29.0 H VBG O2 Sat (Calc) 92.4 H VBG Base Excess 3.5 H VBG Potassium 3.2 L Glucose 110 H Lactate 1.7 Sodium 132 134.0 Potassium 3.6 Chloride 96 L 99.0 Carbon Dioxide 31 H Anion Gap 10 BUN 21 H Creatinine 0.7 Est GFR ( Amer) > 60 Est GFR (Non-Af Amer) > 60 POC Glucose (mg/dL) Random Glucose 104 Calcium 9.6 Magnesium 1.7 Total Bilirubin 2.5 H AST 62 H ALT 77 H Alkaline Phosphatase 184 H D Troponin I 0.0190 NT-Pro-B Natriuret Pep 1850 H Total Protein 5.3 L Albumin 2.4 L D Globulin 3.0 Albumin/Globulin Ratio 0.8 L TSH 3rd Generation 1.09 Venous Blood Potassium 3.2 L Urine Color [place] Urine Clarity Hazy Urine pH 5.0 Ur Specific [place] 1.018 Urine Protein 1+ H Urine Glucose (UA) Normal Urine Ketones Negative Urine Blood 2+ H Urine Nitrate Negative Urine Bilirubin Negative Urine Urobilinogen 4.0 H Ur Leukocyte Esterase 1+ H Urine WBC (Auto) 26 H Urine RBC (Auto) 1 Ur Squamous Epith Cells < 1 Urine Bacteria Many H 01/28/18 01/28/18 15:46 16:47 WBC RBC Hgb Hct MCV MCH MCHC RDW Plt Count MPV Neut % (Auto) Lymph % (Auto) [place] % (Auto) Eos % (Auto) Baso % (Auto) Neut # (Auto) Lymph # (Auto) [place] # (Auto) Eos # (Auto) Baso # (Auto) Neutrophils % (Manual) Band Neutrophils % Lymphocytes % (Manual) Reactive Lymphs % Monocytes % (Manual) Platelet Estimate Hypochromasia (manual) Anisocytosis (manual) Target Cells PT INR APTT pO2 VBG pH VBG pCO2 VBG HCO3 VBG Total CO2 VBG O2 Sat (Calc) VBG Base Excess VBG Potassium Glucose Lactate Sodium Potassium Chloride Carbon Dioxide Anion Gap BUN Creatinine Est GFR ( Amer) Est GFR (Non-Af Amer) POC Glucose (mg/dL) 213 H 217 H Random Glucose Calcium Magnesium Total Bilirubin AST ALT Alkaline Phosphatase Troponin I NT-Pro-B Natriuret Pep Total Protein Albumin Globulin Albumin/Globulin Ratio TSH 3rd Generation Venous Blood Potassium Urine Color Urine Clarity Urine pH Ur Specific [place] Urine Protein Urine Glucose (UA) Urine Ketones Urine Blood Urine Nitrate Urine Bilirubin Urine Urobilinogen Ur Leukocyte Esterase Urine WBC (Auto) Urine RBC (Auto) Ur Squamous Epith Cells Urine Bacteria Attending/Attestation - Attestation I have personally seen and examined this patient.: Yes I have fully participated in the care of the patient.: Yes I have reviewed all pertinent clinical information: Yes Notes (Text): 01/28/18 18:32 patient seen and examined 72-year-old female presented to emergency room with shortness of breath. Status post lymph node biopsy yesterday Denies chest pain, denies cough denies fever or chills Continue nebulizer treatment and IV steroids A repeat chest x-ray Started on antibiotic Venous Doppler lower extremities
[2018-01-28] MEDS: Azithromycin 500 MG in Sodium Chloride 0.9% 250 ML IVPB SCH ×2 (18:37→18:38)
[2018-01-28] MEDS: MethylPREDNISolone 40 mg Vial IVP SCH (21:21)
[2018-01-28] MEDS: Albuterol-Ipratrop 3 mg / 0.5 (3 ml) UD INH SCH (22:26)
[2018-01-29] MEDS: Albuterol-Ipratrop 3 mg / 0.5 (3 ml) UD INH SCH ×4 (01:27→20:48)
[2018-01-29] MEDS: (Novolog) Insulin Aspart, Recombinant 100 u/ml 10 ml vial SC SCH ×4 (08:30→22:42)
--- NOTE | 2018-01-29 10:05 | CP.PCM.CON ---
History of Present Illness - History of Present Illness History of Present Illness: CC: Shortness of breath HPI: 72 year old female with chronic medical conditions 1. Anemia - she is here for work up 2. HTN is chronic and stable on norvasc, toprol 3. DM is chronic and stable on actos, glimperide, insulin She is reporting improvement in breathing but edema persists. She is concerned about mediport placement. Review of Systems - Review of Systems All systems: reviewed and no additional remarkable complaints except Past Patient History - Infectious Disease Hx of Infectious Diseases: None - Past Medical History & Family History Past Medical History?: Yes - Past Social History Smoking Status: Former Smoker - CARDIAC Hx Hypertension: Yes - PULMONARY Hx Respiratory Disorders: Yes (ABN CT SCAN) - NEUROLOGICAL Hx Neurological Disorder: No - HEENT Hx HEENT Problems: No - RENAL Hx Chronic Kidney Disease: No - ENDOCRINE/METABOLIC Hx Endocrine Disorders: Yes Hx Diabetes Mellitus Type 2: Yes - HEMATOLOGICAL/ONCOLOGICAL Hx Anemia: Yes - INTEGUMENTARY Hx Dermatological Problems: No - MUSCULOSKELETAL/RHEUMATOLOGICAL Hx Osteoporosis: Yes - GASTROINTESTINAL Hx Gall Bladder Disease: Yes - GENITOURINARY/GYNECOLOGICAL Hx Genitourinary Disorders: Yes Hx Cervical Cancer: Yes Hx Urinary Tract Infection: Yes (TREATED) - PSYCHIATRIC Hx Substance Use: No - SURGICAL HISTORY Hx Surgeries: Yes Hx Hysterectomy: Yes (40 yrs.ago) Hx Mastectomy: Yes (1998-surgery) Other/Comment: 1978-stomack/cervical - ANESTHESIA Hx Anesthesia: Yes Hx Anesthesia Reactions: No Hx Malignant Hyperthermia: No Meds Allergies/Adverse Reactions: Allergies Allergy/AdvReac Type Severity Reaction Status Date / Time strawberry Allergy Intermediate ITCHING Verified 01/28/18 09:03 - Medications Medications: Current Medications Albuterol/Ipratropium (Duoneb 3 Mg/0.5 Mg (3 Ml) Ud) 3 ml INH RQ6 [facility] Last Admin: 01/29/18 08:02 Dose: 3 ml Amlodipine Besylate (Norvasc) 5 mg PO DAILY [facility] Enoxaparin Sodium (Lovenox) 40 mg SC DAILY [facility] Last Admin: 01/28/18 15:30 Dose: 40 mg Ferrous Sulfate (Feosol) 325 mg PO BID [facility] Last Admin: 01/28/18 18:37 Dose: 325 mg Furosemide (Lasix) 40 mg IVP DAILY [facility] Glimepiride (Amaryl) 2 mg PO BID [facility] Last Admin: 01/28/18 18:37 Dose: 2 mg Hydralazine HCl (Apresoline) 25 mg PO BID [facility] Last Admin: 01/28/18 18:37 Dose: 25 mg Hydrochlorothiazide (Microzide) 12.5 mg PO DAILY [facility] Ceftriaxone Sodium (Rocephin Iv 1 Gm Duplex) 50 mls @ 100 mls/hr IVPB DAILY [facility] PRN Reason: Protocol Azithromycin 500 mg/ Sodium (Chloride) 250 mls @ 167 mls/hr IVPB DAILY [facility] PRN Reason: Protocol Last Admin: 01/28/18 18:38 Dose: Not Given Insulin Aspart (Novolog) 0 unit SC ACHS [facility] PRN Reason: Protocol Last Admin: 01/29/18 08:30 Dose: Not Given Lisinopril (Zestril) 20 mg PO DAILY [facility] Methylprednisolone (Solu-Medrol) 40 mg IVP Q8 [facility] Last Admin: 01/28/18 21:21 Dose: Not Given Metoprolol Succinate (Toprol Xl) 50 mg PO DAILY [facility] Morphine Sulfate (Morphine) 2 mg IVP Q4 PRN PRN Reason: Pain, severe (8-10) Multivitamins (Hexavitamin) 1 tab PO DAILY [facility] Pantoprazole Sodium (Protonix Ec Tab) 40 mg PO DAILY [facility] Pioglitazone HCl (Actos) 30 mg PO QPM [facility] Last Admin: 01/28/18 18:37 Dose: 30 mg Physical Exam - Constitutional Appears: Well, Chronically Ill - Head Exam Head Exam: ATRAUMATIC, NORMAL INSPECTION - Eye Exam Eye Exam: PERRL. absent: Scleral icterus - ENT Exam ENT Exam: Mucous Membranes Dry Additional comments: Poor dentition - Neck Exam Neck exam: Positive for: Full Rom, Normal Inspection. Negative for: Tenderness - Respiratory Exam Respiratory Exam: Wheezes, NORMAL BREATHING PATTERN - Cardiovascular Exam Cardiovascular Exam: REGULAR RHYTHM, RRR, +S1, +S2. absent: JVD Additional comments: 1+ LE edema - GI/Abdominal Exam GI & Abdominal Exam: Normal Bowel Sounds Additional comments: +Tender, no rebound - Neurological Exam Neurological exam: CN II-XII Intact, Oriented x3 - Psychiatric Exam Psychiatric exam: Anxious, Normal Affect Results - Vital Signs Recent Vital Signs: Last Vital Signs Temp 97.5 F L 01/29/18 07:41 Pulse 92 H 01/29/18 07:41 Resp 20 01/29/18 07:41 BP 123/65 01/29/18 07:41 Pulse Ox 95 01/29/18 07:41 - Labs Result Diagrams: 01/28/18 10:14 01/28/18 10:14 Labs: Laboratory Results - last 24 hr 01/28/18 01/28/18 01/28/18 10:13 10:14 10:14 WBC 8.7 RBC 3.51 L Hgb 8.2 L Hct 24.6 L MCV 70.1 L D MCH 23.3 L MCHC 33.3 RDW 27.5 H Plt Count 173 MPV 11.4 Neut % (Auto) 83.7 H Lymph % (Auto) 1.9 L Wilkinson % (Auto) 13.5 H Eos % (Auto) 0.0 Baso % (Auto) 0.9 Neut # (Auto) 7.3 H Lymph # (Auto) 0.2 L Wilkinson # (Auto) 1.2 H Eos # (Auto) 0.0 Baso # (Auto) 0.1 Neutrophils % (Manual) 80 H Band Neutrophils % 1 Lymphocytes % (Manual) 4 L Reactive Lymphs % 1 H Monocytes % (Manual) 14 H Platelet Estimate Normal Hypochromasia (manual) Moderate Anisocytosis (manual) Moderate Target Cells Slight PT 15.9 H INR 1.5 APTT 30 pO2 VBG pH VBG pCO2 VBG HCO3 VBG Total CO2 VBG O2 Sat (Calc) VBG Base Excess VBG Potassium Glucose Lactate Sodium Potassium Chloride Carbon Dioxide Anion Gap BUN Creatinine Est GFR ( Amer) Est GFR (Non-Af Amer) POC Glucose (mg/dL) 101 Random Glucose Calcium Magnesium Total Bilirubin AST ALT Alkaline Phosphatase Troponin I NT-Pro-B Natriuret Pep Total Protein Albumin Globulin Albumin/Globulin Ratio TSH 3rd Generation Venous Blood Potassium Urine Color Urine Clarity Urine pH Ur Specific [place] Urine Protein Urine Glucose (UA) Urine Ketones Urine Blood Urine Nitrate Urine Bilirubin Urine Urobilinogen Ur Leukocyte Esterase Urine WBC (Auto) Urine RBC (Auto) Ur Squamous Epith Cells Urine Bacteria 01/28/18 01/28/18 01/28/18 10:14 10:14 11:48 WBC RBC Hgb Hct MCV MCH MCHC RDW Plt Count MPV Neut % (Auto) Lymph % (Auto) Wilkinson % (Auto) Eos % (Auto) Baso % (Auto) Neut # (Auto) Lymph # (Auto) Wilkinson # (Auto) Eos # (Auto) Baso # (Auto) Neutrophils % (Manual) Band Neutrophils % Lymphocytes % (Manual) Reactive Lymphs % Monocytes % (Manual) Platelet Estimate Hypochromasia (manual) Anisocytosis (manual) Target Cells PT INR APTT pO2 57 H VBG pH 7.45 H VBG pCO2 40 VBG HCO3 27.5 VBG Total CO2 29.0 H VBG O2 Sat (Calc) 92.4 H VBG Base Excess 3.5 H VBG Potassium 3.2 L Glucose 110 H Lactate 1.7 Sodium 132 134.0 Potassium 3.6 Chloride 96 L 99.0 Carbon Dioxide 31 H Anion Gap 10 BUN 21 H Creatinine 0.7 Est GFR ( Amer) > 60 Est GFR (Non-Af Amer) > 60 POC Glucose (mg/dL) Random Glucose 104 Calcium 9.6 Magnesium 1.7 Total Bilirubin 2.5 H AST 62 H ALT 77 H Alkaline Phosphatase 184 H D Troponin I 0.0190 NT-Pro-B Natriuret Pep 1850 H Total Protein 5.3 L Albumin 2.4 L D Globulin 3.0 Albumin/Globulin Ratio 0.8 L TSH 3rd Generation 1.09 Venous Blood Potassium 3.2 L Urine Color [place] Urine Clarity Hazy Urine pH 5.0 Ur Specific [place] 1.018 Urine Protein 1+ H Urine Glucose (UA) Normal Urine Ketones Negative Urine Blood 2+ H Urine Nitrate Negative Urine Bilirubin Negative Urine Urobilinogen 4.0 H Ur Leukocyte Esterase 1+ H Urine WBC (Auto) 26 H Urine RBC (Auto) 1 Ur Squamous Epith Cells < 1 Urine Bacteria Many H 01/28/18 01/28/18 01/28/18 15:46 16:47 21:09 WBC RBC Hgb Hct MCV MCH MCHC RDW Plt Count MPV Neut % (Auto) Lymph % (Auto) Wilkinson % (Auto) Eos % (Auto) Baso % (Auto) Neut # (Auto) Lymph # (Auto) Wilkinson # (Auto) Eos # (Auto) Baso # (Auto) Neutrophils % (Manual) Band Neutrophils % Lymphocytes % (Manual) Reactive Lymphs % Monocytes % (Manual) Platelet Estimate Hypochromasia (manual) Anisocytosis (manual) Target Cells PT INR APTT pO2 VBG pH VBG pCO2 VBG HCO3 VBG Total CO2 VBG O2 Sat (Calc) VBG Base Excess VBG Potassium Glucose Lactate Sodium Potassium Chloride Carbon Dioxide Anion Gap BUN Creatinine Est GFR ( Amer) Est GFR (Non-Af Amer) POC Glucose (mg/dL) 213 H 217 H 405 H* Random Glucose Calcium Magnesium Total Bilirubin AST ALT Alkaline Phosphatase Troponin I NT-Pro-B Natriuret Pep Total Protein Albumin Globulin Albumin/Globulin Ratio TSH 3rd Generation Venous Blood Potassium Urine Color Urine Clarity Urine pH Ur Specific [place] Urine Protein Urine Glucose (UA) Urine Ketones Urine Blood Urine Nitrate Urine Bilirubin Urine Urobilinogen Ur Leukocyte Esterase Urine WBC (Auto) Urine RBC (Auto) Ur Squamous Epith Cells Urine Bacteria 01/29/18 01/29/18 02:36 06:10 WBC RBC Hgb Hct MCV MCH MCHC RDW Plt Count MPV Neut % (Auto) Lymph % (Auto) Wilkinson % (Auto) Eos % (Auto) Baso % (Auto) Neut # (Auto) Lymph # (Auto) Wilkinson # (Auto) Eos # (Auto) Baso # (Auto) Neutrophils % (Manual) Band Neutrophils % Lymphocytes % (Manual) Reactive Lymphs % Monocytes % (Manual) Platelet Estimate Hypochromasia (manual) Anisocytosis (manual) Target Cells PT INR APTT pO2 VBG pH VBG pCO2 VBG HCO3 VBG Total CO2 VBG O2 Sat (Calc) VBG Base Excess VBG Potassium Glucose Lactate Sodium Potassium Chloride Carbon Dioxide Anion Gap BUN Creatinine Est GFR ( Amer) Est GFR (Non-Af Amer) POC Glucose (mg/dL) 319 H 214 H Random Glucose Calcium Magnesium Total Bilirubin AST ALT Alkaline Phosphatase Troponin I NT-Pro-B Natriuret Pep Total Protein Albumin Globulin Albumin/Globulin Ratio TSH 3rd Generation Venous Blood Potassium Urine Color Urine Clarity Urine pH Ur Specific [place] Urine Protein Urine Glucose (UA) Urine Ketones Urine Blood Urine Nitrate Urine Bilirubin Urine Urobilinogen Ur Leukocyte Esterase Urine WBC (Auto) Urine RBC (Auto) Ur Squamous Epith Cells Urine Bacteria - EKG Data EKG Interpreted by: Myself EKG shows normal: Sinus rhythm - Imaging and Cardiology CT scan - chest Additional comment: Pleural effusion, atelectasis Assessment & Plan - Assessment and Plan (Free Text) Assessment: 72 year old female with new onset of lower extremity edema which is suspicious for CHF but this could also be due to lymphatic or venous obstruction in the abdomen, obtain 2D echo Lymphadenopathy biospy was performed as outpatient and results are pending Diabetes is poorly controlled, titrate insulin COPD on abx, bronchodilators - Date & Time Date: 01/29/18 Time: 08:26
[2018-01-29] MEDS: cefTRIAXone IV 1 gm in Dextros 50 ML IVPB SCH (10:20)
[2018-01-29] MEDS: Metoprolol Succinate 50 mg XL Tab PO SCH (10:30)
[2018-01-29] MEDS: Multiple Vitamins Tab PO SCH (10:30)
[2018-01-29] MEDS: Pantoprazole 40 mg EC Tab PO SCH (10:31)
[2018-01-29] MEDS: Enoxaparin 40 mg Syringe SC SCH (10:36)
[2018-01-29] MEDS: Azithromycin 500 MG in Sodium Chloride 0.9% 250 ML IVPB SCH (10:57)
[2018-01-29] MEDS: MethylPREDNISolone 40 mg Vial IVP SCH ×2 (13:06→22:50)
--- NOTE | 2018-01-29 17:25 | CP.PCM.HP ---
Past Patient History - Infectious Disease Hx of Infectious Diseases: None - Past Medical History & Family History Past Medical History?: Yes - Past Social History Smoking Status: Former Smoker - CARDIAC Hx Hypertension: Yes - PULMONARY Hx Respiratory Disorders: Yes (ABN CT SCAN) - NEUROLOGICAL Hx Neurological Disorder: No - HEENT Hx HEENT Problems: No - RENAL Hx Chronic Kidney Disease: No - ENDOCRINE/METABOLIC Hx Endocrine Disorders: Yes Hx Diabetes Mellitus Type 2: Yes - HEMATOLOGICAL/ONCOLOGICAL Hx Anemia: Yes - INTEGUMENTARY Hx Dermatological Problems: No - MUSCULOSKELETAL/RHEUMATOLOGICAL Hx Osteoporosis: Yes - GASTROINTESTINAL Hx Gall Bladder Disease: Yes - GENITOURINARY/GYNECOLOGICAL Hx Genitourinary Disorders: Yes Hx Cervical Cancer: Yes Hx Urinary Tract Infection: Yes (TREATED) - PSYCHIATRIC Hx Substance Use: No - SURGICAL HISTORY Hx Surgeries: Yes Hx Hysterectomy: Yes (40 yrs.ago) Hx Mastectomy: Yes (1998-surgery) Other/Comment: 1978-stomack/cervical - ANESTHESIA Hx Anesthesia: Yes Hx Anesthesia Reactions: No Hx Malignant Hyperthermia: No Meds Allergies/Adverse Reactions: Allergies Allergy/AdvReac Type Severity Reaction Status Date / Time strawberry Allergy Intermediate ITCHING Verified 01/28/18 09:03 Physical Exam - Constitutional Appears: Well - Head Exam Head Exam: ATRAUMATIC, NORMAL INSPECTION, NORMOCEPHALIC - Eye Exam Eye Exam: EOMI, Normal appearance, PERRL Pupil Exam: NORMAL ACCOMODATION, PERRL - ENT Exam ENT Exam: Mucous Membranes Moist, Normal Exam - Neck Exam Neck exam: Positive for: Normal Inspection - Respiratory Exam Respiratory Exam: Decreased Breath Sounds - Cardiovascular Exam Cardiovascular Exam: REGULAR RHYTHM, +S1, +S2 - GI/Abdominal Exam GI & Abdominal Exam: Diminished Bowel Sounds, Soft - Rectal Exam Rectal Exam: Deferred Results - Vital Signs Recent Vital Signs: Last Vital Signs Temp 99 F 01/29/18 16:04 Pulse 99 H 01/29/18 16:54 Resp 20 01/29/18 16:04 BP 106/61 01/29/18 16:04 Pulse Ox 96 01/29/18 16:04 - Labs Result Diagrams: 01/28/18 10:14 01/28/18 10:14 Labs: Laboratory Results - last 24 hr 01/28/18 01/29/18 01/29/18 21:09 02:36 06:10 POC Glucose (mg/dL) 405 H* 319 H 214 H 01/29/18 01/29/18 11:37 16:17 POC Glucose (mg/dL) 221 H 196 H
--- NOTE | 2018-01-29 17:53 | CP.PCM.CON ---
History of Present Illness - History of Present Illness History of Present Illness: c/o less sob, cough and states she improved with nebs long standing smoker since age 13, stopped only a few months ago Review of Systems - Constitutional Constitutional: Fatigue - Respiratory Respiratory: Dyspnea on Exertion Past Patient History - Infectious Disease Hx of Infectious Diseases: None - Past Medical History & Family History Past Medical History?: Yes - Past Social History Smoking Status: Former Smoker - CARDIAC Hx Hypertension: Yes - PULMONARY Hx Respiratory Disorders: Yes (ABN CT SCAN) - NEUROLOGICAL Hx Neurological Disorder: No - HEENT Hx HEENT Problems: No - RENAL Hx Chronic Kidney Disease: No - ENDOCRINE/METABOLIC Hx Endocrine Disorders: Yes Hx Diabetes Mellitus Type 2: Yes - HEMATOLOGICAL/ONCOLOGICAL Hx Anemia: Yes - INTEGUMENTARY Hx Dermatological Problems: No - MUSCULOSKELETAL/RHEUMATOLOGICAL Hx Osteoporosis: Yes - GASTROINTESTINAL Hx Gall Bladder Disease: Yes - GENITOURINARY/GYNECOLOGICAL Hx Genitourinary Disorders: Yes Hx Cervical Cancer: Yes Hx Urinary Tract Infection: Yes (TREATED) - PSYCHIATRIC Hx Substance Use: No - SURGICAL HISTORY Hx Surgeries: Yes Hx Hysterectomy: Yes (40 yrs.ago) Hx Mastectomy: Yes (surgery) Other/Comment: 1978-stomack/cervical - ANESTHESIA Hx Anesthesia: Yes Hx Anesthesia Reactions: No Hx Malignant Hyperthermia: No Meds Allergies/Adverse Reactions: Allergies Allergy/AdvReac Type Severity Reaction Status Date / Time strawberry Allergy Intermediate ITCHING Verified 01/28/18 09:03 - Medications Medications: Current Medications Albuterol/Ipratropium (Duoneb 3 Mg/0.5 Mg (3 Ml) Ud) 3 ml INH RQ6 [facility] Last Admin: 01/29/18 14:00 Dose: 3 ml Amlodipine Besylate (Norvasc) 5 mg PO DAILY [facility] Last Admin: 01/29/18 10:33 Dose: 5 mg Enoxaparin Sodium (Lovenox) 40 mg SC DAILY [facility] Last Admin: 01/29/18 10:36 Dose: 40 mg Ferrous Sulfate (Feosol) 325 mg PO BID [facility] Last Admin: 01/29/18 10:30 Dose: 325 mg Furosemide (Lasix) 40 mg IVP DAILY [facility] Last Admin: 01/29/18 10:28 Dose: 40 mg Glimepiride (Amaryl) 2 mg PO BID [facility] Last Admin: 01/29/18 10:30 Dose: 2 mg Hydralazine HCl (Apresoline) 25 mg PO BID [facility] Last Admin: 01/29/18 10:30 Dose: 25 mg Hydrochlorothiazide (Microzide) 12.5 mg PO DAILY [facility] Last Admin: 01/29/18 10:31 Dose: 12.5 mg Ceftriaxone Sodium (Rocephin Iv 1 Gm Duplex) 50 mls @ 100 mls/hr IVPB DAILY [facility] PRN Reason: Protocol Last Admin: 01/29/18 10:20 Dose: 100 mls/hr Azithromycin 500 mg/ Sodium (Chloride) 250 mls @ 167 mls/hr IVPB DAILY [facility] PRN Reason: Protocol Last Admin: 01/29/18 10:57 Dose: 167 mls/hr Insulin Aspart (Novolog) 0 unit SC ACHS [facility] PRN Reason: Protocol Last Admin: 01/29/18 12:30 Dose: 2 units Lisinopril (Zestril) 20 mg PO DAILY [facility] Last Admin: 01/29/18 10:30 Dose: 20 mg Methylprednisolone (Solu-Medrol) 40 mg IVP Q8 [facility] Last Admin: 01/29/18 13:06 Dose: 40 mg Metoprolol Succinate (Toprol Xl) 50 mg PO DAILY [facility] Last Admin: 01/29/18 10:30 Dose: 50 mg Morphine Sulfate (Morphine) 2 mg IVP Q4 PRN PRN Reason: Pain, severe (8-10) Multivitamins (Hexavitamin) 1 tab PO DAILY [facility] Last Admin: 01/29/18 10:30 Dose: 1 tab Pantoprazole Sodium (Protonix Ec Tab) 40 mg PO DAILY [facility] Last Admin: 01/29/18 10:31 Dose: 40 mg Pioglitazone HCl (Actos) 30 mg PO QPM [facility] Last Admin: 01/28/18 18:37 Dose: 30 mg Physical Exam - Constitutional Appears: Chronically Ill - Head Exam Head Exam: ATRAUMATIC, NORMOCEPHALIC - Eye Exam Eye Exam: Normal appearance Pupil Exam: NORMAL ACCOMODATION - ENT Exam ENT Exam: Mucous Membranes Moist - Neck Exam Neck exam: Positive for: Normal Inspection - Respiratory Exam Respiratory Exam: Decreased Breath Sounds - Cardiovascular Exam Cardiovascular Exam: REGULAR RHYTHM, +S1, +S2 - GI/Abdominal Exam GI & Abdominal Exam: Normal Bowel Sounds - Rectal Exam Rectal Exam: Deferred - Neurological Exam Neurological exam: Alert, Oriented x3 - Psychiatric Exam Psychiatric exam: Flat Affect - Skin Skin Exam: Intact Results - Vital Signs Recent Vital Signs: Last Vital Signs Temp 99 F 01/29/18 16:04 Pulse 99 H 01/29/18 16:54 Resp 20 01/29/18 16:04 BP 106/61 01/29/18 16:04 Pulse Ox 96 01/29/18 16:04 - Labs Result Diagrams: 01/28/18 10:14 01/28/18 10:14 Labs: Laboratory Results - last 24 hr 01/28/18 01/29/18 01/29/18 21:09 02:36 06:10 POC Glucose (mg/dL) 405 H* 319 H 214 H 01/29/18 01/29/18 11:37 16:17 POC Glucose (mg/dL) 221 H 196 H Assessment & Plan (1) COPD exacerbation Status: Acute (2) Lymphadenopathy, abdominal Status: Acute
[2018-01-29] MEDS: Fluticasone-Salmeterol 250-50mcg Diskus INH SCH (20:48)
[2018-01-30] MEDS: Albuterol-Ipratrop 3 mg / 0.5 (3 ml) UD INH SCH ×4 (02:31→19:45)
[2018-01-30] MEDS: MethylPREDNISolone 40 mg Vial IVP SCH ×3 (06:30→21:45)
[2018-01-30] MEDS: Tiotropium 18 mcg Cap For Inhalation INH SCH (08:18)
[2018-01-30] MEDS: Fluticasone-Salmeterol 250-50mcg Diskus INH SCH ×2 (08:18→19:45)
[2018-01-30 08:36] LABS: BASO % 0.4 % (0.0-2.0); EOS % 0.1 % (0.0-4.0); HEMOGLOBIN 7.5 g/dL (11.0-16.0); LYMPH # 0.2 K/uL (1.0-4.3); LYMPH % 2.5 % (20.0-40.0); MEAN CORPUSCULAR HEMOGLOBIN 23.2 pg (27.0-31.0); MEAN CORPUSCULAR HGB CONC 32.7 g/dL (33.0-37.0); MEAN PLATELET VOLUME 10.4 fL (7.2-11.7); MONO # 0.8 K/uL (0.0-0.8); MONO % 10.1 % (0.0-10.0); NEUT # 6.5 K/uL (1.8-7.0); NEUT % 86.9 % (50.0-75.0); NRBC % 0.2 % (0.0-2.0); PLATELET COUNT 146 K/uL (130-400); RBC 3.25 Mil/uL (3.80-5.20); RED CELL DISTRIBUTION WIDTH 27.4 % (11.5-14.5); WHITE BLOOD COUNT 7.4 K/uL (4.8-10.8)
[2018-01-30] MEDS: (Novolog) Insulin Aspart, Recombinant 100 u/ml 10 ml vial SC SCH ×4 (08:37→22:00)
[2018-01-30 08:50] LABS: ALB/GLOB RATIO 0.9 (1.0-2.1); ALBUMIN 2.4 g/dL (3.5-5.0); ALT/SGPT 66 U/L (9-52); AST/SGOT 32 U/L (14-36); BLOOD UREA NITROGEN 32 mg/dL (7-17); CALCIUM 9.7 mg/dl (8.6-10.4); GFR NON-AFRICAN AMERICAN > 60
[2018-01-30 10:30] LABS: ANISOCYTOSIS MARKED; BANDS 4 % (0-2); HYPOCHROMIC MODERATE; LYMPHOCYTE 1 % (20-40); MONOCYTE 7 % (0-10); NEUTROPHIL 88 % (50-75); PLATELET ESTIMATE NORMAL (NORMAL); TOTAL CELLS COUNTED 100
[2018-01-30 10:31] LABS: POIKILOCYTOSIS SLIGHT; TARGET CELLS SLIGHT
[2018-01-30] MEDS: Multiple Vitamins Tab PO SCH (11:24)
[2018-01-30] MEDS: Pantoprazole 40 mg EC Tab PO SCH (11:24)
[2018-01-30] MEDS: cefTRIAXone IV 1 gm in Dextros 50 ML IVPB SCH (11:25)
[2018-01-30] MEDS: Metoprolol Succinate 50 mg XL Tab PO SCH (11:26)
[2018-01-30] MEDS: Enoxaparin 40 mg Syringe SC SCH (11:27)
[2018-01-30] MEDS: Azithromycin 500 MG in Sodium Chloride 0.9% 250 ML IVPB SCH (13:37)
[2018-01-30] MEDS ORDERED: Potassium Chloride 20 mEq ER Tab PO SCH (14:04)
[2018-01-30] MEDS ORDERED: Potassium Chloride 20 mEq/15 ml LIQ UD PO SCH (15:00)
[2018-01-30] MEDS ORDERED: Ferric Sodium Gluconat Complex 62.5 mg/5 ml Vial IVPB SCH (16:00)
[2018-01-30] MEDS: Ferric Sodium Gluconat Complex 125 MG in Sodium Chloride 0.9% 100 ML IVPB SCH (16:25)
[2018-01-30] MEDS ORDERED: Sodium Chloride Nasal 0.65% Soln (30ml) NAS PRN (19:09)
--- NOTE | 2018-01-30 19:17 | PQF ---
PROVIDER RESPONSE TEXT: UTI in the setting of COPD Exac. with Positive U/A treated with Rocephin IV REVIEWER QUERY TEXT: Clarification of Clinical Diagnostic Findings Please clarify documentation or clinical relevance for the clinical / diagnostic findings or whether those are insignificant or unable to be further specified. UTI in the setting of COPD Exac. with Positive U/A treated with Rocephin IV. - Other Explanation - Unable to Determine The patient's Clinical Indicators include: Clinical Findings; Abdominal pain, ,decrease appetite, weakness . Positive U/A U/A: LE=1+, Wbc= 26, B acteria= Many . Treatment : Rocephin IV Risk Factors: Immunocompromised Query created by: Miranda Cuevas on 01/29/2018 3:34 PM Electronically signed by: Lex ANDERSON 01/30/2018 7:14 PM
--- NOTE | 2018-01-30 19:17 | PQF ---
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 Please document the type and acuity (in cludes probable or suspected) Such as: Type: -- Combined systolic and diastolic (heart failure with reduced ejection fraction and diastolic) dysfu nction -- Diastolic (HFpEF) -- Systolic (HFrEF) -- Left heart failure -- Right heart failure -- Right heart failure due to left heart failure -- High output failure -- End stage heart failure -- Other, please specify Acuity: -- Acute -- Chronic -- Acute on chronic -- Other, please specify The patient's Clinical Indicators include: Clinical Findings: SOB, Increase Lower ext. swelling, Diffuse Abdominal Pain , Pro BNP= 1850 Treatment : IV Lasix Risk factors: HTN,DM Query created by: Miranda Cuevas on 01/29/2018 3:46 PM Electronically signed by: Lex ANDERSON 01/30/2018 7:14 PM
[2018-01-30] MEDS ORDERED: Potassium Chloride 20 mEq ER Tab PO STA (19:19)
--- NOTE | 2018-01-30 19:36 | CP.PCM.PN ---
Subjective - Date & Time of Evaluation Date of Evaluation: 01/30/18 Time of Evaluation: 08:45 - Subjective Subjective: clinically same Objective - Vital Signs/Intake and Output Vital Signs (last 24 hours): Temp Pulse Resp BP Pulse Ox 98 F 102 H 20 163/82 H 97 01/30/18 19:07 01/30/18 19:07 01/30/18 19:07 01/30/18 19:07 01/30/18 15:59 Intake and Output: 01/30/18 01/31/18 18:59 06:59 Intake Total 1080 Balance 1080 - Medications Medications: Current Medications Albuterol/Ipratropium (Duoneb 3 Mg/0.5 Mg (3 Ml) Ud) 3 ml INH RQ6 [facility] Last Admin: 01/30/18 13:43 Dose: Not Given Amlodipine Besylate (Norvasc) 5 mg PO DAILY [facility] Last Admin: 01/30/18 11:26 Dose: Not Given Enoxaparin Sodium (Lovenox) 40 mg SC DAILY [facility] Last Admin: 01/30/18 11:27 Dose: 40 mg Ferrous Sulfate (Feosol) 325 mg PO BID [facility] Last Admin: 01/30/18 17:53 Dose: 325 mg Furosemide (Lasix) 40 mg IVP Q12 [facility] Glimepiride (Amaryl) 2 mg PO BID [facility] Last Admin: 01/30/18 17:53 Dose: 2 mg Hydralazine HCl (Apresoline) 25 mg PO BID [facility] Last Admin: 01/30/18 17:53 Dose: 25 mg Hydrochlorothiazide (Microzide) 12.5 mg PO DAILY [facility] Last Admin: 01/30/18 11:25 Dose: 12.5 mg Ceftriaxone Sodium (Rocephin Iv 1 Gm Duplex) 50 mls @ 100 mls/hr IVPB DAILY [facility] PRN Reason: Protocol Last Admin: 01/30/18 11:25 Dose: 100 mls/hr Azithromycin 500 mg/ Sodium (Chloride) 250 mls @ 167 mls/hr IVPB DAILY [facility] PRN Reason: Protocol Last Admin: 01/30/18 13:37 Dose: 167 mls/hr Ferric Sodium Gluconate Complex 125 mg/ Sodium Chloride 110 mls @ 110 mls/hr IVPB Q24H [facility] Stop: 02/04/18 16:01 Last Admin: 01/30/18 16:25 Dose: 110 mls/hr Insulin Aspart (Novolog) 0 unit SC ACHS [facility] PRN Reason: Protocol Last Admin: 01/30/18 17:53 Dose: 2 units Lisinopril (Zestril) 20 mg PO DAILY [facility] Last Admin: 01/30/18 11:26 Dose: Not Given Methylprednisolone (Solu-Medrol) 40 mg IVP Q8 [facility] Last Admin: 01/30/18 13:42 Dose: 40 mg Metoprolol Succinate (Toprol Xl) 50 mg PO DAILY [facility] Last Admin: 01/30/18 11:26 Dose: Not Given Morphine Sulfate (Morphine) 2 mg IVP Q4 PRN PRN Reason: Pain, severe (8-10) Last Admin: 01/30/18 16:26 Dose: 2 mg Multivitamins (Hexavitamin) 1 tab PO DAILY [facility] Last Admin: 01/30/18 11:24 Dose: 1 tab Pantoprazole Sodium (Protonix Ec Tab) 40 mg PO DAILY [facility] Last Admin: 01/30/18 11:24 Dose: 40 mg Pioglitazone HCl (Actos) 30 mg PO QPM [facility] Last Admin: 01/30/18 17:53 Dose: 30 mg Fluticasone/Salmeterol (Advair Diskus 250/50) 1 puff INH RQ12 [facility] Last Admin: 01/30/18 08:18 Dose: 1 puff Sodium Chloride (Lane Baby Saline 30 Ml) 0 ml CORAL Q4H PRN PRN Reason: Dry nasal passages Temazepam (Restoril) 15 mg PO HS PRN PRN Reason: Insomnia Tiotropium [place] (Spiriva) 18 mcg INH RQ24 [facility] Last Admin: 01/30/18 08:18 Dose: 18 mcg - Labs Labs: 01/30/18 08:27 01/30/18 08:27 PT 15.9 SECONDS (9.7-12.2) H 01/28/18 10:14 INR 1.5 01/28/18 10:14 APTT 30 SECONDS (21-34) 01/28/18 10:14 - Constitutional Appears: Well - Head Exam Head Exam: ATRAUMATIC, NORMAL INSPECTION, NORMOCEPHALIC - Eye Exam Eye Exam: EOMI, Normal appearance, PERRL Pupil Exam: NORMAL ACCOMODATION, PERRL - ENT Exam ENT Exam: Mucous Membranes Moist, Normal Exam - Neck Exam Neck Exam: Full ROM, Normal Inspection. absent: Lymphadenopathy - Respiratory Exam Respiratory Exam: Decreased Breath Sounds - Cardiovascular Exam Cardiovascular Exam: REGULAR RHYTHM, +S1, +S2 - GI/Abdominal Exam GI & Abdominal Exam: Soft, Diminished Bowel Sounds - Rectal Exam Rectal Exam: Deferred
--- NOTE | 2018-01-30 21:12 | CP.PCM.PN ---
Subjective - Date & Time of Evaluation Date of Evaluation: 01/30/18 Time of Evaluation: 14:10 - Subjective Subjective: No CP No fevers or chills still with persistent edema in legs Objective - Vital Signs/Intake and Output Vital Signs (last 24 hours): Temp Pulse Resp BP Pulse Ox 98.1 F 98 H 20 143/78 97 01/30/18 19:37 01/30/18 20:14 01/30/18 19:37 01/30/18 19:37 01/30/18 15:59 Intake and Output: 01/30/18 01/31/18 18:59 06:59 Intake Total 1080 Balance 1080 - Medications Medications: Current Medications Albuterol/Ipratropium (Duoneb 3 Mg/0.5 Mg (3 Ml) Ud) 3 ml INH RQ6 [facility] Last Admin: 01/30/18 19:45 Dose: 3 ml Amlodipine Besylate (Norvasc) 5 mg PO DAILY [facility] Last Admin: 01/30/18 11:26 Dose: Not Given Enoxaparin Sodium (Lovenox) 40 mg SC DAILY [facility] Last Admin: 01/30/18 11:27 Dose: 40 mg Ferrous Sulfate (Feosol) 325 mg PO BID [facility] Last Admin: 01/30/18 17:53 Dose: 325 mg Furosemide (Lasix) 40 mg IVP Q12 [facility] Glimepiride (Amaryl) 2 mg PO BID [facility] Last Admin: 01/30/18 17:53 Dose: 2 mg Hydralazine HCl (Apresoline) 25 mg PO BID [facility] Last Admin: 01/30/18 17:53 Dose: 25 mg Hydrochlorothiazide (Microzide) 12.5 mg PO DAILY [facility] Last Admin: 01/30/18 11:25 Dose: 12.5 mg Ceftriaxone Sodium (Rocephin Iv 1 Gm Duplex) 50 mls @ 100 mls/hr IVPB DAILY [facility] PRN Reason: Protocol Last Admin: 01/30/18 11:25 Dose: 100 mls/hr Azithromycin 500 mg/ Sodium (Chloride) 250 mls @ 167 mls/hr IVPB DAILY [facility] PRN Reason: Protocol Last Admin: 01/30/18 13:37 Dose: 167 mls/hr Ferric Sodium Gluconate Complex 125 mg/ Sodium Chloride 110 mls @ 110 mls/hr IVPB Q24H [facility] Stop: 02/04/18 16:01 Last Admin: 01/30/18 16:25 Dose: 110 mls/hr Insulin Aspart (Novolog) 0 unit SC ACHS [facility] PRN Reason: Protocol Last Admin: 01/30/18 17:53 Dose: 2 units Lisinopril (Zestril) 20 mg PO DAILY [facility] Last Admin: 01/30/18 11:26 Dose: Not Given Methylprednisolone (Solu-Medrol) 40 mg IVP Q8 [facility] Last Admin: 01/30/18 13:42 Dose: 40 mg Metoprolol Succinate (Toprol Xl) 50 mg PO DAILY [facility] Last Admin: 01/30/18 11:26 Dose: Not Given Morphine Sulfate (Morphine) 2 mg IVP Q4 PRN PRN Reason: Pain, severe (8-10) Last Admin: 01/30/18 16:26 Dose: 2 mg Multivitamins (Hexavitamin) 1 tab PO DAILY [facility] Last Admin: 01/30/18 11:24 Dose: 1 tab Pantoprazole Sodium (Protonix Ec Tab) 40 mg PO DAILY [facility] Last Admin: 01/30/18 11:24 Dose: 40 mg Pioglitazone HCl (Actos) 30 mg PO QPM [facility] Last Admin: 01/30/18 17:53 Dose: 30 mg Fluticasone/Salmeterol (Advair Diskus 250/50) 1 puff INH RQ12 [facility] Last Admin: 01/30/18 19:45 Dose: 1 puff Sodium Chloride ([place] Baby Saline 30 Ml) 0 ml CORAL Q4H PRN PRN Reason: Dry nasal passages Temazepam (Restoril) 15 mg PO HS PRN PRN Reason: Insomnia Tiotropium [place] (Spiriva) 18 mcg INH RQ24 [facility] Last Admin: 01/30/18 08:18 Dose: 18 mcg - Labs Labs: 01/30/18 08:27 01/30/18 08:27 PT 15.9 SECONDS (9.7-12.2) H 01/28/18 10:14 INR 1.5 01/28/18 10:14 APTT 30 SECONDS (21-34) 01/28/18 10:14 - Constitutional Appears: No Acute Distress - Head Exam Head Exam: ATRAUMATIC, NORMAL INSPECTION, NORMOCEPHALIC - ENT Exam ENT Exam: Normal Oropharynx - Neck Exam Neck Exam: Full ROM - Respiratory Exam Respiratory Exam: Rhonchi, NORMAL BREATHING PATTERN. absent: Wheezes, Respiratory Distress - Cardiovascular Exam Cardiovascular Exam: REGULAR RHYTHM, +S1, +S2 - Extremities Exam Extremities Exam: absent: Normal Inspection (B/L Le edema 2+) Assessment and Plan - Assessment and Plan (Free Text) Assessment: Lymphadenopathy Anemia Low albumin COPD HTN DM Plan 1. Increase lasix to 40 IV q12, suggest albumin and nutrition eval 2. May need metolazone 3. Consider d/c amlodipine and titrate BP meds 4. Leg elevation and DVT prophylaxis
[2018-01-31] MEDS: Albuterol-Ipratrop 3 mg / 0.5 (3 ml) UD INH SCH ×4 (01:33→19:46)
[2018-01-31] MEDS: MethylPREDNISolone 40 mg Vial IVP SCH ×3 (06:09→21:28)
[2018-01-31] MEDS: Fluticasone-Salmeterol 250-50mcg Diskus INH SCH ×2 (08:37→19:45)
[2018-01-31] MEDS: Tiotropium 18 mcg Cap For Inhalation INH SCH (08:38)
[2018-01-31] MEDS: (Novolog) Insulin Aspart, Recombinant 100 u/ml 10 ml vial SC SCH ×4 (09:48→22:10)
[2018-01-31] MEDS: Metoprolol Succinate 50 mg XL Tab PO SCH (10:41)
[2018-01-31] MEDS: Multiple Vitamins Tab PO SCH (10:41)
[2018-01-31] MEDS: Pantoprazole 40 mg EC Tab PO SCH (10:42)
[2018-01-31] MEDS: Enoxaparin 40 mg Syringe SC SCH ×2 (10:49→10:50)
[2018-01-31] MEDS: cefTRIAXone IV 1 gm in Dextros 50 ML IVPB SCH (10:51)
[2018-01-31] MEDS: Azithromycin 500 MG in Sodium Chloride 0.9% 250 ML IVPB SCH (11:51)
[2018-01-31] MEDS ORDERED: Potassium Chloride 20 mEq ER Tab PO ONE (14:00)
[2018-01-31 14:40] LABS: HEMOGLOBIN 8.8 g/dL (11.0-16.0); MEAN CELL VOLUME 73.7 fL (81.0-99.0); MEAN CORPUSCULAR HEMOGLOBIN 23.4 pg (27.0-31.0); MEAN CORPUSCULAR HGB CONC 31.7 g/dL (33.0-37.0); MEAN PLATELET VOLUME 10.8 fL (7.2-11.7); RBC 3.74 Mil/uL (3.80-5.20); RED CELL DISTRIBUTION WIDTH 27.2 % (11.5-14.5); WHITE BLOOD COUNT 7.9 K/uL (4.8-10.8)
[2018-01-31 14:56] LABS: BLOOD UREA NITROGEN 27 mg/dL (7-17); CALCIUM 9.7 mg/dl (8.6-10.4); GFR NON-AFRICAN AMERICAN > 60
--- NOTE | 2018-01-31 15:49 | CP.PCM.PN ---
Subjective - Date & Time of Evaluation Date of Evaluation: 01/31/18 Time of Evaluation: 09:00 - Subjective Subjective: clinically same Objective - Vital Signs/Intake and Output Vital Signs (last 24 hours): Temp Pulse Resp BP Pulse Ox 98.0 F 90 18 178/100 H 95 01/31/18 08:07 01/31/18 08:20 01/31/18 08:07 01/31/18 10:50 01/31/18 08:07 Intake and Output: 01/31/18 01/31/18 06:59 18:59 Intake Total 650 Balance 650 - Medications Medications: Current Medications Albuterol/Ipratropium (Duoneb 3 Mg/0.5 Mg (3 Ml) Ud) 3 ml INH RQ6 [facility] Last Admin: 01/31/18 13:34 Dose: 3 ml Amlodipine Besylate (Norvasc) 5 mg PO DAILY [facility] Last Admin: 01/31/18 10:41 Dose: 5 mg Enoxaparin Sodium (Lovenox) 40 mg SC DAILY [facility] Last Admin: 01/31/18 10:50 Dose: Not Given Ferrous Sulfate (Feosol) 325 mg PO BID [facility] Last Admin: 01/31/18 10:41 Dose: 325 mg Furosemide (Lasix) 40 mg IVP Q12 [facility] Last Admin: 01/31/18 10:50 Dose: 40 mg Glimepiride (Amaryl) 2 mg PO BID [facility] Last Admin: 01/31/18 10:41 Dose: 2 mg Hydralazine HCl (Apresoline) 25 mg PO BID [facility] Last Admin: 01/31/18 10:41 Dose: 25 mg Hydrochlorothiazide (Microzide) 12.5 mg PO DAILY [facility] Last Admin: 01/31/18 10:41 Dose: 12.5 mg Ceftriaxone Sodium (Rocephin Iv 1 Gm Duplex) 50 mls @ 100 mls/hr IVPB DAILY [facility] PRN Reason: Protocol Last Admin: 01/31/18 10:51 Dose: 100 mls/hr Azithromycin 500 mg/ Sodium (Chloride) 250 mls @ 167 mls/hr IVPB DAILY [facility] PRN Reason: Protocol Last Admin: 01/31/18 11:51 Dose: 167 mls/hr Ferric Sodium Gluconate Complex 125 mg/ Sodium Chloride 110 mls @ 110 mls/hr IVPB Q24H [facility] Stop: 02/04/18 16:01 Last Admin: 01/30/18 16:25 Dose: 110 mls/hr Insulin Aspart (Novolog) 0 unit SC ACHS [facility] PRN Reason: Protocol Last Admin: 01/31/18 12:20 Dose: 6 units Lisinopril (Zestril) 20 mg PO DAILY [facility] Last Admin: 01/31/18 10:41 Dose: 20 mg Methylprednisolone (Solu-Medrol) 40 mg IVP Q8 [facility] Last Admin: 01/31/18 06:09 Dose: 40 mg Metoprolol Succinate (Toprol Xl) 50 mg PO DAILY [facility] Last Admin: 01/31/18 10:41 Dose: 50 mg Morphine Sulfate (Morphine) 2 mg IVP Q4 PRN PRN Reason: Pain, severe (8-10) Last Admin: 01/31/18 11:21 Dose: 2 mg Multivitamins (Hexavitamin) 1 tab PO DAILY [facility] Last Admin: 01/31/18 10:41 Dose: 1 tab Pantoprazole Sodium (Protonix Ec Tab) 40 mg PO DAILY [facility] Last Admin: 01/31/18 10:42 Dose: 40 mg Pioglitazone HCl (Actos) 30 mg PO QPM [facility] Last Admin: 01/30/18 17:53 Dose: 30 mg Fluticasone/Salmeterol (Advair Diskus 250/50) 1 puff INH RQ12 [facility] Last Admin: 01/31/18 08:37 Dose: Not Given Sodium Chloride ([place] Baby Saline 30 Ml) 0 ml CORAL Q4H PRN PRN Reason: Dry nasal passages Temazepam (Restoril) 15 mg PO HS PRN PRN Reason: Insomnia Last Admin: 01/30/18 21:15 Dose: 15 mg Tiotropium [place] (Spiriva) 18 mcg INH RQ24 [facility] Last Admin: 01/31/18 08:38 Dose: Not Given - Labs Labs: 01/31/18 14:29 01/31/18 14:29 PT 15.9 SECONDS (9.7-12.2) H 01/28/18 10:14 INR 1.5 01/28/18 10:14 APTT 30 SECONDS (21-34) 01/28/18 10:14 - Constitutional Appears: Well - Head Exam Head Exam: ATRAUMATIC, NORMAL INSPECTION, NORMOCEPHALIC - Eye Exam Eye Exam: EOMI, Normal appearance, PERRL Pupil Exam: NORMAL ACCOMODATION, PERRL - ENT Exam ENT Exam: Mucous Membranes Moist, Normal Exam - Neck Exam Neck Exam: Full ROM, Normal Inspection. absent: Lymphadenopathy - Respiratory Exam Respiratory Exam: Decreased Breath Sounds - Cardiovascular Exam Cardiovascular Exam: REGULAR RHYTHM, +S1, +S2 - GI/Abdominal Exam GI & Abdominal Exam: Soft, Diminished Bowel Sounds - Rectal Exam Rectal Exam: Deferred
[2018-01-31] MEDS ORDERED: Ferric Sodium Gluconat Complex 62.5 mg/5 ml Vial IVPB SCH (16:00)
[2018-01-31] MEDS: Ferric Sodium Gluconat Complex 125 MG in Sodium Chloride 0.9% 100 ML IVPB SCH (17:54)
--- NOTE | 2018-01-31 18:04 | CARD ---
APPROVED REPORT Date of service: 01/31/2018 EXAM: Two-dimensional and M-mode echocardiogram with Doppler and color Doppler. Other Information Quality : AverageRhythm : NSR INDICATION Chest Pain Congestive Heart Failure RISK FACTORS Hypertension Hyperlipidemia Diabetes 2D DIMENSIONS LVOT Diameter1.6 (1.8-2.4cm) M-Mode DIMENSIONS RVDd1.08 (2.1-3.2cm)Left Atrium (MM)4.51 (2.5-4.0cm) IVSd0.80 (0.7-1.1cm)Aortic Root2.26 (2.2-3.7cm) LVDd4.27 (4.0-5.6cm)Aortic Cusp Exc.1.77 (1.5-2.0cm) PWd0.94 (0.7-1.1cm)LVDs3.16 (2.0-3.8cm) LVEF (%)60 (>50%) Aortic Valve AoV Peak Sghlidam110.9cm/sAoV VTI43.6cmAO Peak GR.23mmHg LVOT Peak Kosbmxnn163.7cm/sLVOT VTI29.65cmAO Mean GR.11mmHg CHUY (VMAX)1.66sd9VQQ (VTI)1.44cm2 Mitral Valve MV E Rzpghdfr729.2cm/sMV A Vsqqqqyp274.5cm/sMV VLG912hd E/A ratio0.6MVA (PHT)1.91cm2 TDI E/Lateral E'0.0E/Medial E'0.0 Tricuspid Valve TR Peak Oqmjqbky150kw/sTR Peak Gr.[id number] LEFT VENTRICLE The left ventricle is normal size. There is normal left ventricular wall thickness. The left ventricular systolic function is normal. The left ventricular ejection fraction is visually estimated - 60%. There is normal LV segmental wall motion. Transmitral Doppler flow pattern is Grade I-abnormal relaxation pattern. Possible mildly increased left atrial pressure. RIGHT VENTRICLE The right ventricle is normal size. The right ventricular systolic function is normal. ATRIA The left atriia index is moderately increased. The right atrium is not well visualized. AORTIC VALVE The aortic valve is mildly sclerotic with normal systolic excursion. MITRAL VALVE Mild mitral annular calcification with mild nnular stenosis. Mitral valve leaflets are normal. There is no mitral valve regurgitation noted. TRICUSPID VALVE The tricuspid valve is normal in structure. There is mild tricuspid regurgitation. Right ventricular systolic pressure is estimated at less than 30 mmHg. PULMONIC VALVE The pulmonic valve is not well visualized. GREAT VESSELS The aortic root displays mild to moderate sclerocalcific changes. The IVC is normal in size and collapses >50% with inspiration. PERICARDIAL EFFUSION There is no pericardial effusion. <Conclusion> The left ventricular systolic function is normal. The left ventricular ejection fraction is visually estimated - 60%. Diastolic dysfunction Grade I-abnormal relaxation pattern. Possible mildly increased left atrial pressure. The right ventricular systolic function is normal. Aortic valve sclerosis. Mild mitral annular calcification with mild annular stenosis. Mild tricuspid regurgitation. Right ventricular systolic pressure is estimated at less than 30 mmHg. The aortic root displays mild to moderate sclerocalcific changes. There is no pericardial effusion. Arteriosclerotic heart disease as depicted by above mentioned intracardiac fibroclerosis.
--- NOTE | 2018-01-31 21:29 | CP.PCM.PN ---
Subjective - Date & Time of Evaluation Date of Evaluation: 01/31/18 Time of Evaluation: 09:00 - Subjective Subjective: Events reviewed Objective - Vital Signs/Intake and Output Vital Signs (last 24 hours): Temp Pulse Resp BP Pulse Ox 97.6 F 87 20 148/80 96 01/31/18 16:00 01/31/18 16:24 01/31/18 16:00 01/31/18 16:00 01/31/18 16:00 - Medications Medications: Current Medications Albuterol/Ipratropium (Duoneb 3 Mg/0.5 Mg (3 Ml) Ud) 3 ml INH RQ6 [facility] Last Admin: 01/31/18 19:46 Dose: Not Given Amlodipine Besylate (Norvasc) 5 mg PO DAILY [facility] Last Admin: 01/31/18 10:41 Dose: 5 mg Enoxaparin Sodium (Lovenox) 40 mg SC DAILY [facility] Last Admin: 01/31/18 10:50 Dose: Not Given Ferrous Sulfate (Feosol) 325 mg PO BID [facility] Last Admin: 01/31/18 17:54 Dose: 325 mg Furosemide (Lasix) 40 mg IVP Q12 [facility] Last Admin: 01/31/18 10:50 Dose: 40 mg Glimepiride (Amaryl) 2 mg PO BID [facility] Last Admin: 01/31/18 17:54 Dose: 2 mg Hydralazine HCl (Apresoline) 25 mg PO BID [facility] Last Admin: 01/31/18 17:54 Dose: 25 mg Hydrochlorothiazide (Microzide) 12.5 mg PO DAILY [facility] Last Admin: 01/31/18 10:41 Dose: 12.5 mg Ceftriaxone Sodium (Rocephin Iv 1 Gm Duplex) 50 mls @ 100 mls/hr IVPB DAILY [facility] PRN Reason: Protocol Last Admin: 01/31/18 10:51 Dose: 100 mls/hr Azithromycin 500 mg/ Sodium (Chloride) 250 mls @ 167 mls/hr IVPB DAILY [facility] PRN Reason: Protocol Last Admin: 01/31/18 11:51 Dose: 167 mls/hr Ferric Sodium Gluconate Complex 125 mg/ Sodium Chloride 110 mls @ 110 mls/hr IVPB Q24H [facility] Stop: 02/04/18 16:01 Last Admin: 01/31/18 17:54 Dose: 110 mls/hr Insulin Aspart (Novolog) 0 unit SC ACHS [facility] PRN Reason: Protocol Last Admin: 01/31/18 18:00 Dose: 5 units Lisinopril (Zestril) 20 mg PO DAILY [facility] Last Admin: 01/31/18 10:41 Dose: 20 mg Methylprednisolone (Solu-Medrol) 40 mg IVP Q8 [facility] Last Admin: 01/31/18 15:00 Dose: Not Given Metoprolol Succinate (Toprol Xl) 50 mg PO DAILY [facility] Last Admin: 01/31/18 10:41 Dose: 50 mg Morphine Sulfate (Morphine) 2 mg IVP Q4 PRN PRN Reason: Pain, severe (8-10) Last Admin: 01/31/18 19:30 Dose: 2 mg Multivitamins (Hexavitamin) 1 tab PO DAILY [facility] Last Admin: 01/31/18 10:41 Dose: 1 tab Pantoprazole Sodium (Protonix Ec Tab) 40 mg PO DAILY [facility] Last Admin: 01/31/18 10:42 Dose: 40 mg Pioglitazone HCl (Actos) 30 mg PO QPM [facility] Last Admin: 01/31/18 17:54 Dose: 30 mg Fluticasone/Salmeterol (Advair Diskus 250/50) 1 puff INH RQ12 [facility] Last Admin: 01/31/18 19:45 Dose: 1 puff Sodium Chloride ([place] Baby Saline 30 Ml) 0 ml CORAL Q4H PRN PRN Reason: Dry nasal passages Temazepam (Restoril) 30 mg PO HS PRN PRN Reason: Insomnia Tiotropium [place] (Spiriva) 18 mcg INH RQ24 [facility] Last Admin: 01/31/18 08:38 Dose: Not Given - Labs Labs: 01/31/18 14:29 01/31/18 14:29 PT 15.9 SECONDS (9.7-12.2) H 01/28/18 10:14 INR 1.5 01/28/18 10:14 APTT 30 SECONDS (21-34) 01/28/18 10:14 - Constitutional Appears: Well, Non-toxic - Respiratory Exam Respiratory Exam: Clear to Ausculation Bilateral, NORMAL BREATHING PATTERN - Cardiovascular Exam Cardiovascular Exam: REGULAR RHYTHM, RRR, +S1, +S2. absent: JVD Additional comments: 1+ LE edema - GI/Abdominal Exam GI & Abdominal Exam: Normal Bowel Sounds. absent: Organomegaly Additional comments: +Abdominal mass Assessment and Plan - Assessment and Plan (Free Text) Assessment: 2D echo images viewed by me: LVH, EF 65%; Stage I diastolic dysfunction, consistent with normal left atrial pressure Lymphadenopathy Anemia Low albumin COPD HTN DM Plan 1. Use lasix to 40 IV q12 for uncontrolled BP, suggest albumin and nutrition eval 2. Titrate hydralazine, d/c HCTZ while on lasix, continue AILEEN 3. Leg elevation and DVT prophylaxis, wound care nurse to apply UNNA boots or compression stockings 4. This is not due to CHF and probably a outflow problem from abdominal or venous pathology
--- NOTE | 2018-02-01 01:02 | PCM.RRT ---
<KingrossyemmettgamaCiaran - Last Filed: 02/01/18 01:13> CAPSULE FILLING MACHINE OPERATOR Nurses Assessment - Situation Date: 02/01/18 Time CAPSULE FILLING MACHINE OPERATOR was called: 00:35 CAPSULE FILLING MACHINE OPERATOR Responder Arrival Time:: 00:37 CAPSULE FILLING MACHINE OPERATOR Location:: Med/Surg CAPSULE FILLING MACHINE OPERATOR Reason for Call: Tachycardia New IV Insertion Tolerance: Fair - Ventilator Settings SAO2 %: 96 - Vital Signs Vital Signs: BP 189/100 T 102.4 HR 120 O2 sat 97 - Vital Signs at end of CAPSULE FILLING MACHINE OPERATOR Vital Signs at end of CAPSULE FILLING MACHINE OPERATOR: bp 137/73 t 102.4 hr 120 02 97 I.Reason for CAPSULE FILLING MACHINE OPERATOR - A) Acute Change in Patient: (Select all that apply): Acute change in heart rate less than 50 or greater than 120 (120) - Neurological Status (Select all that apply): Responsive, Follows Commands, Confused - Respiratory Oxygen Delivery Method: Nasal Cannula @L/min (2) - Constitutional Appears: Non-toxic, In Acute Distress - Head Head Exam: ATRAUMATIC, NORMAL INSPECTION - Eyes Eye Exam: EOMI, Normal appearance. absent: Scleral icterus - Respiratory Exam Respiratory Exam: Wheezes - Cardiovascular Exam Cardiovascular Exam: Tachycardia, +S1, +S2. absent: Murmur - GI/Abdominal Exam GI & Abdominal Exam: Soft. absent: Tenderness, Organomegaly - Neurological Exam Neurological Exam: Alert, Awake, CN II-XII Intact, Oriented x3 - Extremities Exam Extremities Exam: Pedal Edema (+3 lina) Plan - Assessment of Findings&Treatment Plan POSSIBLE SEPSIS -HR 120 T 102 -IMMUNOCOMPROMISED STaRT VANC AND ZOSYN -STOP FUROSEMIDE <Garcia Ji - Last Filed: 02/01/18 08:07> CAPSULE FILLING MACHINE OPERATOR Nurses Assessment - Vital Signs Vital Signs: Rapid Response Vital Sign Blood Pressure 189/93 Pulse Rate 120 Respiratory Rate 24 Temperature 102.4 F Oxygen Saturation 91 - Vital Signs at end of CAPSULE FILLING MACHINE OPERATOR Vital Signs at end of CAPSULE FILLING MACHINE OPERATOR: Rapid Response End Vital Sign Blood Pressure 138/67 Pulse Rate 104 Respiratory Rate 18 O2 Sat by Pulse Oximetry 98 Attending/Attestation - Attestation I have personally seen and examined this patient.: Yes I have fully participated in the care of the patient.: Yes I have reviewed all pertinent clinical information, including history, physical exam and plan: Yes Notes (Text): CAPSULE FILLING MACHINE OPERATOR called for high fever, tachycardia and hypertension, patient was also confused during this time. Oral temp of 102.4F, spo2 maintained 97% on 2lit NC, mild rattling breathing noises, firm bladder post void, 500ml obtained with catheter. Patient admitted to hospital for evaluation of hepato splenomegaly and generalized lymphadenopathy, s/p biopsy this admission also being treated for peripheral edema with lasix iv, normal ef. DD of sepsis source uti, bacterimia, pna, fever related to lymphadenopathy, and prior blood transfusion also as DD. Patient started on empiric vancomycin and zosyn, blood cultrues, urine cultures, stat lab work sent. Pt's hr, bp, mental status improved as the fever improved, ortiz left in place, CXR ordered, lasix stopped in view of sepsis and clinically not being in CHF. CXR is pending. Primary team notified by the nursing.
[2018-02-01] MEDS ORDERED: Piperacill/Tazo 2.25gm in Dex 2.25 GM/50 ML BAG IVPB SCH (02:00)
[2018-02-01 02:04] LABS: MEAN CELL VOLUME 71.9 fL (81.0-99.0); MEAN CORPUSCULAR HEMOGLOBIN 23.7 pg (27.0-31.0); MEAN PLATELET VOLUME 10.1 fL (7.2-11.7); RBC 3.8 Mil/uL (3.80-5.20); RED CELL DISTRIBUTION WIDTH 27.5 % (11.5-14.5); WHITE BLOOD COUNT 10.5 K/uL (4.8-10.8)
[2018-02-01] MEDS: Piperacillin/Tazobact 3.375 GM in Sodium Chloride 100 ML IVPB SCH ×4 (02:16→20:00)
[2018-02-01] MEDS: Vancomycin 1 gm/NS 200 ml 1 GM/200 ML BAG IVPB SCH ×2 (02:17→16:06)
[2018-02-01] MEDS: Albuterol-Ipratrop 3 mg / 0.5 (3 ml) UD INH SCH ×3 (02:18→19:59)
[2018-02-01 02:24] LABS: ALBUMIN 2.7 g/dL (3.5-5.0); ALT/SGPT 68 U/L (9-52); AST/SGOT 36 U/L (14-36); BLOOD UREA NITROGEN 28 mg/dL (7-17); CALCIUM 10.1 mg/dl (8.6-10.4); GFR NON-AFRICAN AMERICAN > 60
[2018-02-01] MEDS ORDERED: Promethazine 6.25 MG/5 ML CUP PO ONE (05:34)
[2018-02-01] MEDS: MethylPREDNISolone 40 mg Vial IVP SCH ×3 (05:38→21:02)
[2018-02-01] MEDS: Metoprolol Succinate 50 mg XL Tab PO SCH (09:32)
[2018-02-01] MEDS: Enoxaparin 40 mg Syringe SC SCH (09:32)
[2018-02-01] MEDS: Multiple Vitamins Tab PO SCH (09:32)
[2018-02-01] MEDS: Pantoprazole 40 mg EC Tab PO SCH (09:33)
[2018-02-01] MEDS: (Novolog) Insulin Aspart, Recombinant 100 u/ml 10 ml vial SC SCH ×4 (09:36→21:02)
[2018-02-01] MEDS: Fluticasone-Salmeterol 250-50mcg Diskus INH SCH ×2 (10:37→19:57)
[2018-02-01] MEDS: Azithromycin 500 MG in Sodium Chloride 0.9% 250 ML IVPB SCH (11:41)
--- NOTE | 2018-02-01 13:17 | CP.PCM.PN ---
Subjective - Date & Time of Evaluation Date of Evaluation: 02/01/18 Time of Evaluation: 09:00 - Subjective Subjective: clinically same Objective - Vital Signs/Intake and Output Vital Signs (last 24 hours): Temp Pulse Resp BP Pulse Ox 97.8 F 95 H 18 157/85 H 93 L 02/01/18 10:09 02/01/18 10:09 02/01/18 10:09 02/01/18 10:09 02/01/18 10:09 Intake and Output: 02/01/18 02/01/18 06:59 18:59 Output Total 1250 Balance -1250 - Medications Medications: Current Medications Albuterol/Ipratropium (Duoneb 3 Mg/0.5 Mg (3 Ml) Ud) 3 ml INH RQ6 [facility] Last Admin: 02/01/18 10:36 Dose: 3 ml Amlodipine Besylate (Norvasc) 5 mg PO DAILY [facility] Last Admin: 02/01/18 09:33 Dose: 5 mg Enoxaparin Sodium (Lovenox) 40 mg SC DAILY [facility] Last Admin: 02/01/18 09:32 Dose: 40 mg Ferrous Sulfate (Feosol) 325 mg PO BID [facility] Last Admin: 02/01/18 09:33 Dose: 325 mg Glimepiride (Amaryl) 2 mg PO BID [facility] Last Admin: 02/01/18 09:32 Dose: 2 mg Hydralazine HCl (Apresoline) 25 mg PO BID [facility] Last Admin: 02/01/18 09:33 Dose: 25 mg Hydrochlorothiazide (Microzide) 12.5 mg PO DAILY [facility] Last Admin: 02/01/18 09:35 Dose: 12.5 mg Azithromycin 500 mg/ Sodium (Chloride) 250 mls @ 167 mls/hr IVPB DAILY [facility] PRN Reason: Protocol Last Admin: 02/01/18 11:41 Dose: 167 mls/hr Ferric Sodium Gluconate Complex 125 mg/ Sodium Chloride 110 mls @ 110 mls/hr IVPB Q24H [facility] Stop: 02/04/18 16:01 Last Admin: 01/31/18 17:54 Dose: 110 mls/hr Vancomycin/Sodium Chloride (Vancomycin 1 Gm/Ns 200 Ml) 1 gm in 200 mls @ 133.333 mls/hr IVPB Q12H [facility] PRN Reason: Protocol Stop: 02/06/18 02:31 Last Admin: 02/01/18 02:17 Dose: 133.333 mls/hr Piperacillin Sod/Tazobactam (Sod 3.375 gm/ Sodium Chloride) 100 mls @ 200 mls/ hr IVPB Q6H [facility] PRN Reason: Protocol Last Admin: 02/01/18 09:33 Dose: 200 mls/hr Ceftriaxone Sodium 1 gm/ (Sodium Chloride) 100 mls @ 100 mls/hr IVPB DAILY [facility] PRN Reason: Protocol Last Admin: 02/01/18 09:34 Dose: 100 mls/hr Insulin Aspart (Novolog) 0 unit SC ACHS [facility] PRN Reason: Protocol Last Admin: 02/01/18 09:36 Dose: 2 units Lisinopril (Zestril) 20 mg PO DAILY [facility] Last Admin: 02/01/18 09:33 Dose: 20 mg Methylprednisolone (Solu-Medrol) 40 mg IVP Q8 [facility] Last Admin: 02/01/18 05:38 Dose: 40 mg Metoprolol Succinate (Toprol Xl) 50 mg PO DAILY [facility] Last Admin: 02/01/18 09:32 Dose: 50 mg Morphine Sulfate (Morphine) 2 mg IVP Q4 PRN PRN Reason: Pain, severe (8-10) Last Admin: 02/01/18 05:19 Dose: 2 mg Multivitamins (Hexavitamin) 1 tab PO DAILY [facility] Last Admin: 02/01/18 09:32 Dose: 1 tab Pantoprazole Sodium (Protonix Ec Tab) 40 mg PO DAILY [facility] Last Admin: 02/01/18 09:33 Dose: 40 mg Pioglitazone HCl (Actos) 30 mg PO QPM [facility] Last Admin: 01/31/18 17:54 Dose: 30 mg Fluticasone/Salmeterol (Advair Diskus 250/50) 1 puff INH RQ12 [facility] Last Admin: 02/01/18 10:37 Dose: 1 puff Sodium Chloride ([place] Baby Saline 30 Ml) 0 ml CORAL Q4H PRN PRN Reason: Dry nasal passages Temazepam (Restoril) 30 mg PO HS PRN PRN Reason: Insomnia Last Admin: 01/31/18 21:30 Dose: 30 mg Tiotropium [place] (Spiriva) 18 mcg INH RQ24 [facility] Last Admin: 01/31/18 08:38 Dose: Not Given - Labs Labs: 02/01/18 02:00 02/01/18 02:00 PT 15.9 SECONDS (9.7-12.2) H 01/28/18 10:14 INR 1.5 01/28/18 10:14 APTT 30 SECONDS (21-34) 01/28/18 10:14 - Constitutional Appears: Well - Head Exam Head Exam: ATRAUMATIC, NORMAL INSPECTION, NORMOCEPHALIC - Eye Exam Eye Exam: EOMI, Normal appearance, PERRL Pupil Exam: NORMAL ACCOMODATION, PERRL - ENT Exam ENT Exam: Mucous Membranes Moist, Normal Exam - Neck Exam Neck Exam: Full ROM, Normal Inspection. absent: Lymphadenopathy - Respiratory Exam Respiratory Exam: Decreased Breath Sounds - Cardiovascular Exam Cardiovascular Exam: REGULAR RHYTHM, +S1, +S2 - GI/Abdominal Exam GI & Abdominal Exam: Soft, Diminished Bowel Sounds - Rectal Exam Rectal Exam: Deferred
--- NOTE | 2018-02-01 17:05 | RAD ---
Date of service: 02/01/2018 HISTORY: fever spike COMPARISON: Chest radiograph dated 11/26/2017. FINDINGS: LUNGS: Stable chronic prominence of the bilateral interstitial markings with superimposed pulmonary vascular congestion not excluded. Bibasilar atelectasis versus infiltrates. PLEURA: No significant pleural effusion identified, no pneumothorax apparent. CARDIOVASCULAR: Atherosclerotic aortic calcifications. Cardiomediastinal silhouette stably enlarged. OSSEOUS STRUCTURES: Unchanged. VISUALIZED UPPER ABDOMEN: Calcified cholelithiasis. OTHER FINDINGS: None. IMPRESSION: Possible pulmonary vascular congestion. Bibasilar atelectasis versus infiltrates.
[2018-02-01] MEDS: Ferric Sodium Gluconat Complex 125 MG in Sodium Chloride 0.9% 100 ML IVPB SCH (18:22)
[2018-02-01 22:20] LABS: SQUAMOUS EPITHIAL < 1 /hpf (0-5); URINE BACTERIA FEW (<OCC); URINE BILIRUBIN NEGATIVE (NEGATIVE); URINE BLOOD NEGATIVE (NEGATIVE); URINE CLARITY Clear (Clear); URINE COLOR Yellow (YELLOW); URINE GLUCOSE (UA) NORMAL (Normal); URINE LEUKOCYTE ESTERASE NEG Leu/uL (Negative); URINE PROTEIN NEGATIVE (NEGATIVE); URINE UROBILINOGEN NORMAL mg/dL (0.2-1.0)
--- NOTE | 2018-02-02 00:16 | CARD ---
APPROVED REPORT Date of service: 01/28/2018 EKG Measurement Heart [id number] <Conclusion> Sinus tachycardia with premature atrial complexes Minimal voltage criteria for LVH, may be normal variant Borderline ECG
[2018-02-02] MEDS: Piperacillin/Tazobact 3.375 GM in Sodium Chloride 100 ML IVPB SCH ×3 (02:15→14:48)
[2018-02-02] MEDS: Albuterol-Ipratrop 3 mg / 0.5 (3 ml) UD INH SCH ×4 (02:22→19:24)
[2018-02-02] MEDS: Vancomycin 1 gm/NS 200 ml 1 GM/200 ML BAG IVPB SCH ×2 (02:56→15:40)
[2018-02-02] MEDS: Fluticasone-Salmeterol 250-50mcg Diskus INH SCH ×2 (07:36→19:24)
[2018-02-02] MEDS: Tiotropium 18 mcg Cap For Inhalation INH SCH (07:36)
[2018-02-02] MEDS: (Novolog) Insulin Aspart, Recombinant 100 u/ml 10 ml vial SC SCH ×4 (08:40→21:24)
[2018-02-02] MEDS: Multiple Vitamins Tab PO SCH (10:55)
[2018-02-02] MEDS: Enoxaparin 40 mg Syringe SC SCH (10:55)
[2018-02-02] MEDS: Pantoprazole 40 mg EC Tab PO SCH (10:55)
[2018-02-02] MEDS: Metoprolol Succinate 50 mg XL Tab PO SCH (10:56)
[2018-02-02] MEDS: Azithromycin 500 MG in Sodium Chloride 0.9% 250 ML IVPB SCH (11:20)
--- NOTE | 2018-02-02 12:10 | CP.PCM.CON ---
History of Present Illness - History of Present Illness History of Present Illness: 72 year old female with PMHx of HTN, DM, Anemia requiring multiple transfusions , L breast cancer, cervical cancer who presented to the ED for increasing shortness of breath. Patient states shortness of breath has been intermittent for the past week and worsened today. Treatment with ventolin inhaler at home provided no improvement of symptoms. Associated symptoms include subjective fever and diaphoresis. Patient's daughter states patient has increased lower extremity swelling for the past 2 weeks and low blood pressure for the last 2 days. Patient states she feels better after recieving Duonebs, lasix 20mg, Solumedrol 125mg, morphine 2mg, and IV antibiotics in the ED. Patient denies chest pain, dizziness, and lightheadedness. ICU was consulted due to shortness of breath. CT scan done in ED: No evidence of pulmonary embolism. Extensive mediastinal, hilar, retroperitoneal, epicardial, paraesophageal and mesenteric lymphadenopathy in conjunction with splenomegaly. Concerning for lymphoproliferative disorder. 6 mm left upper lobe nodule, nonspecific. Several small ill-defined opacities as described. Recommend six-month short interval follow-up chest CT examination for the lingular nodule. Ascites. Cholelithiasis. PMHx: Anemia requiring multiple transfusions, HTN, DM, L breast cancer, cervical cancer (in remission) PSHx: Hysterectomy (1978), L mastectomy (1998), Meds: amlodipine 5mg PO daily, Prochlorperazine 5mg PO TID, Pioglitazone 30mg PO QPM, Omeprazole 40mg PO daily, hydralazine 25mg PO BID, Ferrous sulfate 325mg PO BID, Vitamin D 50,000units Qweek, albuterol 2 pull Q6H PRN, metoprolol succinate 50mg PO daily, lisinopril/HCTZ 20-12.5 mg PO daily, Glimepiride 2mg PO BID Allergies: [place] Past Patient History - Infectious Disease Hx of Infectious Diseases: None - Past Medical History & Family History Past Medical History?: Yes - Past Social History Smoking Status: Former Smoker - CARDIAC Hx Hypertension: Yes - PULMONARY Hx Respiratory Disorders: Yes (ABN CT SCAN) - NEUROLOGICAL Hx Neurological Disorder: No - HEENT Hx HEENT Problems: No - RENAL Hx Chronic Kidney Disease: No - ENDOCRINE/METABOLIC Hx Diabetes Mellitus Type 2: Yes - HEMATOLOGICAL/ONCOLOGICAL Hx Anemia: Yes - INTEGUMENTARY Hx Dermatological Problems: No - MUSCULOSKELETAL/RHEUMATOLOGICAL Hx Osteoporosis: Yes - GASTROINTESTINAL Hx Gall Bladder Disease: Yes - GENITOURINARY/GYNECOLOGICAL Hx Genitourinary Disorders: Yes Hx Cervical Cancer: Yes Hx Urinary Tract Infection: Yes (TREATED) - PSYCHIATRIC Hx Substance Use: No - SURGICAL HISTORY Hx Surgeries: Yes Hx Hysterectomy: Yes (40 yrs.ago) Hx Mastectomy: Yes (1998-surgery) Other/Comment: 1979-stomack/cervical - ANESTHESIA Hx Anesthesia: Yes Hx Anesthesia Reactions: No Hx Malignant Hyperthermia: No Meds Allergies/Adverse Reactions: Allergies Allergy/AdvReac Type Severity Reaction Status Date / Time strawberry Allergy Intermediate ITCHING Verified 01/28/18 09:03 - Medications Medications: Current Medications Albuterol/Ipratropium (Duoneb 3 Mg/0.5 Mg (3 Ml) Ud) 3 ml INH RQ6 [facility] Last Admin: 02/02/18 07:36 Dose: 3 ml Amlodipine Besylate (Norvasc) 5 mg PO DAILY [facility] Last Admin: 02/02/18 10:56 Dose: 5 mg Enoxaparin Sodium (Lovenox) 40 mg SC DAILY [facility] Last Admin: 02/02/18 10:55 Dose: 40 mg Ferrous Sulfate (Feosol) 325 mg PO BID [facility] Last Admin: 02/02/18 10:55 Dose: 325 mg Glimepiride (Amaryl) 2 mg PO BID [facility] Last Admin: 02/02/18 10:56 Dose: 2 mg Hydralazine HCl (Apresoline) 25 mg PO BID [facility] Last Admin: 02/02/18 09:02 Dose: Not Given Hydrochlorothiazide (Microzide) 12.5 mg PO DAILY [facility] Last Admin: 02/02/18 10:55 Dose: 12.5 mg Azithromycin 500 mg/ Sodium (Chloride) 250 mls @ 167 mls/hr IVPB DAILY [facility] PRN Reason: Protocol Last Admin: 02/01/18 11:41 Dose: 167 mls/hr Ferric Sodium Gluconate Complex 125 mg/ Sodium Chloride 110 mls @ 110 mls/hr IVPB Q24H [facility] Stop: 02/04/18 16:01 Last Admin: 02/01/18 18:22 Dose: 110 mls/hr Vancomycin/Sodium Chloride (Vancomycin 1 Gm/Ns 200 Ml) 1 gm in 200 mls @ 133.333 mls/hr IVPB Q12H [facility] PRN Reason: Protocol Stop: 02/06/18 02:31 Last Admin: 02/02/18 02:56 Dose: 133.333 mls/hr Piperacillin Sod/Tazobactam (Sod 3.375 gm/ Sodium Chloride) 100 mls @ 200 mls/ hr IVPB Q6H [facility] PRN Reason: Protocol Last Admin: 02/02/18 08:48 Dose: 200 mls/hr Ceftriaxone Sodium 1 gm/ (Sodium Chloride) 100 mls @ 100 mls/hr IVPB DAILY [facility] PRN Reason: Protocol Last Admin: 02/02/18 10:54 Dose: 100 mls/hr Insulin Aspart (Novolog) 0 unit SC ACHS [facility] PRN Reason: Protocol Last Admin: 02/02/18 08:40 Dose: 4 units Lisinopril (Zestril) 20 mg PO DAILY [facility] Last Admin: 02/02/18 10:55 Dose: 20 mg Methylprednisolone (Solu-Medrol) 40 mg IVP Q8 [facility] Last Admin: 02/01/18 21:02 Dose: 40 mg Metoprolol Succinate (Toprol Xl) 50 mg PO DAILY [facility] Last Admin: 02/02/18 10:56 Dose: 50 mg Multivitamins (Hexavitamin) 1 tab PO DAILY [facility] Last Admin: 02/02/18 10:55 Dose: 1 tab Pantoprazole Sodium (Protonix Ec Tab) 40 mg PO DAILY [facility] Last Admin: 02/02/18 10:55 Dose: 40 mg Pioglitazone HCl (Actos) 30 mg PO QPM [facility] Last Admin: 02/01/18 17:20 Dose: 30 mg Fluticasone/Salmeterol (Advair Diskus 250/50) 1 puff INH RQ12 [facility] Last Admin: 02/02/18 07:36 Dose: 1 puff Sodium Chloride ([place] Baby Saline 30 Ml) 0 ml CORAL Q4H PRN PRN Reason: Dry nasal passages Temazepam (Restoril) 30 mg PO HS PRN PRN Reason: Insomnia Last Admin: 02/01/18 21:02 Dose: 30 mg Tiotropium [place] (Spiriva) 18 mcg INH RQ24 [facility] Last Admin: 02/02/18 07:36 Dose: 18 mcg Results - Vital Signs Recent Vital Signs: Last Vital Signs Temp 97.7 F 02/02/18 07:00 Pulse 104 H 02/02/18 10:54 Resp 18 02/02/18 07:00 BP 157/75 H 02/02/18 10:54 Pulse Ox 96 02/02/18 07:00 - Labs Result Diagrams: 02/01/18 02:00 02/01/18 02:00 Labs: Laboratory Results - last 24 hr 01/30/18 01/31/18 01/31/18 21:37 06:21 11:19 POC Glucose (mg/dL) 331 H 337 H 474 H* Procalcitonin Urine Color Urine Clarity Urine pH Ur Specific [place] Urine Protein Urine Glucose (UA) Urine Ketones Urine Blood Urine Nitrate Urine Bilirubin Urine Urobilinogen Ur Leukocyte Esterase Urine WBC (Auto) Urine RBC (Auto) Ur Squamous Epith Cells Urine Bacteria 01/31/18 01/31/18 02/01/18 16:59 21:09 00:48 POC Glucose (mg/dL) 398 H 162 H 158 H Procalcitonin Urine Color Urine Clarity Urine pH Ur Specific [place] Urine Protein Urine Glucose (UA) Urine Ketones Urine Blood Urine Nitrate Urine Bilirubin Urine Urobilinogen Ur Leukocyte Esterase Urine WBC (Auto) Urine RBC (Auto) Ur Squamous Epith Cells Urine Bacteria 02/01/18 02/01/18 02/01/18 02:00 06:28 11:32 POC Glucose (mg/dL) 208 H 320 H Procalcitonin 0.53 H Urine Color Urine Clarity Urine pH Ur Specific [place] Urine Protein Urine Glucose (UA) Urine Ketones Urine Blood Urine Nitrate Urine Bilirubin Urine Urobilinogen Ur Leukocyte Esterase Urine WBC (Auto) Urine RBC (Auto) Ur Squamous Epith Cells Urine Bacteria 02/01/18 02/01/18 02/01/18 16:57 20:53 22:00 POC Glucose (mg/dL) 400 H* 378 H Procalcitonin Urine Color Yellow Urine Clarity Clear Urine pH 6.0 Ur Specific [place] 1.010 Urine Protein Negative Urine Glucose (UA) Normal Urine Ketones Negative Urine Blood Negative Urine Nitrate Negative Urine Bilirubin Negative Urine Urobilinogen Normal Ur Leukocyte Esterase Neg Urine WBC (Auto) 3 Urine RBC (Auto) < 1 Ur Squamous Epith Cells < 1 Urine Bacteria Few H 02/02/18 02/02/18 02/02/18 01:58 06:34 11:06 POC Glucose (mg/dL) 378 H 346 H 320 H Procalcitonin Urine Color Urine Clarity Urine pH Ur Specific [place] Urine Protein Urine Glucose (UA) Urine Ketones Urine Blood Urine Nitrate Urine Bilirubin Urine Urobilinogen Ur Leukocyte Esterase Urine WBC (Auto) Urine RBC (Auto) Ur Squamous Epith Cells Urine Bacteria
[2018-02-02] MEDS ORDERED: Vancomycin 1 gm/NS 200 ml 1 GM/200 ML BAG IVPB STA (12:12)
[2018-02-02] MEDS: Cefepime IV 1 gm in Dextrose 1 GM/50 ML BAG IVPB SCH ×2 (14:10→21:08)
[2018-02-02] MEDS: MethylPREDNISolone 40 mg Vial IVP SCH (14:14)
--- NOTE | 2018-02-02 16:20 | CP.PCM.CON ---
History of Present Illness - History of Present Illness History of Present Illness: General Surgery Consult Note for Dr. Garcia A 72 year old female with PMHx of COPD, HTN, DM, left breast cancer, cervical cancer, and anemia presented to the ED with failure to thrive. Patient was seen and examined today at bedside. Patient complains of weakness, cough, mild RLQ abdominal pain, and bilateral lower extremity pain and swelling. Patient denies fever, chills, nausea, vomiting, diarrhea, constipation, and bowel/urinary changes. Rapid response called on 02/01/18 for tachycardia, high fever, and hypertension. Blood culture on 01/28 showed no growth after 5 days and 02/01 showed no growth after 24 hours. General surgery consulted for portocath placement. Review of Systems - Constitutional Constitutional: Fatigue, Weakness. absent: Chills, Excessive Sweating, Fever, Headache, Night Sweats - EENT Eyes: absent: Change in Vision Nose/Mouth/Throat: absent: Dysphagia, Sore Throat, Neck Pain - Cardiovascular Cardiovascular: Edema, Pedal Edema. absent: Chest Pain - Respiratory Respiratory: Cough. absent: Dyspnea - Gastrointestinal Gastrointestinal: absent: Abdominal Pain, Constipation, Diarrhea, Hematochezia - Genitourinary Genitourinary: absent: Change in Urinary Stream, Dysuria, Hematuria - Reproductive: Female Reproductive:Female: S/P Hysterectomy - Musculoskeletal Musculoskeletal: absent: Joint Swelling, Numbness, Tingling - Integumentary Integumentary: absent: Rash - Neurological Neurological: absent: Numbness, Headaches - Endocrine Endocrine: Fatigue. absent: Excessive Sweating, Palpitations - Hematologic/Lymphatic Hematologic: absent: Easy Bleeding, Easy Bruising Past Patient History - Infectious Disease Hx of Infectious Diseases: None - Past Medical History & Family History Past Medical History?: Yes Pertinent Family History: Father had colon cancer. Brother had lung cancer, another brother had cancer of unknown type. - Past Social History Smoking Status: Heavy Smoker > 10 Cigarettes Daily Chewing Tobacco Use: No Cigar Use: No - CARDIAC Hx Hypertension: Yes - PULMONARY Hx Respiratory Disorders: Yes (ABN CT SCAN) Hx Chronic Obstructive Pulmonary Disease (COPD): Yes - NEUROLOGICAL Hx Neurological Disorder: No - HEENT Hx HEENT Problems: No - RENAL Hx Chronic Kidney Disease: No - ENDOCRINE/METABOLIC Hx Diabetes Mellitus Type 2: Yes - HEMATOLOGICAL/ONCOLOGICAL Hx Anemia: Yes - INTEGUMENTARY Hx Dermatological Problems: No - MUSCULOSKELETAL/RHEUMATOLOGICAL Hx Osteoporosis: Yes - GASTROINTESTINAL Hx Gall Bladder Disease: Yes - GENITOURINARY/GYNECOLOGICAL Hx Genitourinary Disorders: Yes Hx Cervical Cancer: Yes (Cervical cancer in 1978) Hx Urinary Tract Infection: Yes (TREATED) - PSYCHIATRIC Hx Substance Use: No - SURGICAL HISTORY Hx Surgeries: Yes Hx Hysterectomy: Yes (40 yrs.ago) Hx Mastectomy: Yes (1998-surgery) Other/Comment: 1978-stomack/cervical - ANESTHESIA Hx Anesthesia: Yes Hx Anesthesia Reactions: No Hx Malignant Hyperthermia: No Meds Allergies/Adverse Reactions: Allergies Allergy/AdvReac Type Severity Reaction Status Date / Time strawberry Allergy Intermediate ITCHING Verified 01/28/18 09:03 - Medications Medications: Current Medications Albuterol/Ipratropium (Duoneb 3 Mg/0.5 Mg (3 Ml) Ud) 3 ml INH RQ6 [facility] Last Admin: 02/02/18 13:37 Dose: Not Given Amlodipine Besylate (Norvasc) 5 mg PO DAILY [facility] Last Admin: 02/02/18 10:56 Dose: 5 mg Enoxaparin Sodium (Lovenox) 40 mg SC DAILY [facility] Last Admin: 02/02/18 10:55 Dose: 40 mg Ferrous Sulfate (Feosol) 325 mg PO BID [facility] Last Admin: 02/02/18 10:55 Dose: 325 mg Furosemide (Lasix) 40 mg IVP BID [facility] Glimepiride (Amaryl) 2 mg PO BID [facility] Last Admin: 02/02/18 10:56 Dose: 2 mg Hydralazine HCl (Apresoline) 25 mg PO BID [facility] Last Admin: 02/02/18 09:02 Dose: Not Given Hydrochlorothiazide (Microzide) 12.5 mg PO DAILY [facility] Last Admin: 02/02/18 10:55 Dose: 12.5 mg Azithromycin 500 mg/ Sodium (Chloride) 250 mls @ 167 mls/hr IVPB DAILY [facility] PRN Reason: Protocol Last Admin: 02/02/18 11:20 Dose: 167 mls/hr Ferric Sodium Gluconate Complex 125 mg/ Sodium Chloride 110 mls @ 110 mls/hr IVPB Q24H [facility] Stop: 02/04/18 16:01 Last Admin: 02/01/18 18:22 Dose: 110 mls/hr Vancomycin/Sodium Chloride (Vancomycin 1 Gm/Ns 200 Ml) 1 gm in 200 mls @ 133.333 mls/hr IVPB Q12H [facility] PRN Reason: Protocol Stop: 02/06/18 02:31 Last Admin: 02/02/18 15:40 Dose: 133.333 mls/hr Piperacillin Sod/Tazobactam (Sod 3.375 gm/ Sodium Chloride) 100 mls @ 200 mls/ hr IVPB Q6H [facility] PRN Reason: Protocol Last Admin: 02/02/18 14:48 Dose: 200 mls/hr Cefepime HCl (Maxipime Iv 1 Gm Premix) 1 gm in 50 mls @ 100 mls/hr IVPB Q8H [facility] PRN Reason: Protocol Last Admin: 02/02/18 14:10 Dose: 100 mls/hr Insulin Aspart (Novolog) 0 unit SC ACHS [facility] PRN Reason: Protocol Last Admin: 02/02/18 14:09 Dose: 4 units Lisinopril (Zestril) 20 mg PO DAILY [facility] Last Admin: 02/02/18 10:55 Dose: 20 mg Methylprednisolone (Solu-Medrol) 40 mg IVP Q8 [facility] Last Admin: 02/02/18 14:14 Dose: 40 mg Metoprolol Succinate (Toprol Xl) 50 mg PO DAILY [facility] Last Admin: 02/02/18 10:56 Dose: 50 mg Multivitamins (Hexavitamin) 1 tab PO DAILY [facility] Last Admin: 02/02/18 10:55 Dose: 1 tab Pantoprazole Sodium (Protonix Ec Tab) 40 mg PO DAILY [facility] Last Admin: 02/02/18 10:55 Dose: 40 mg Pioglitazone HCl (Actos) 30 mg PO QPM [facility] Last Admin: 02/01/18 17:20 Dose: 30 mg Fluticasone/Salmeterol (Advair Diskus 250/50) 1 puff INH RQ12 [facility] Last Admin: 02/02/18 07:36 Dose: 1 puff Sodium Chloride ([place] Baby Saline 30 Ml) 0 ml CORAL Q4H PRN PRN Reason: Dry nasal passages Temazepam (Restoril) 30 mg PO HS PRN PRN Reason: Insomnia Last Admin: 02/01/18 21:02 Dose: 30 mg Tiotropium [place] (Spiriva) 18 mcg INH RQ24 [facility] Last Admin: 02/02/18 07:36 Dose: 18 mcg Physical Exam - Constitutional Appears: No Acute Distress - Head Exam Head Exam: ATRAUMATIC, NORMAL INSPECTION, NORMOCEPHALIC - Eye Exam Eye Exam: EOMI, Normal appearance, PERRL Pupil Exam: NORMAL ACCOMODATION, PERRL - ENT Exam ENT Exam: Mucous Membranes Moist, Normal Exam - Neck Exam Neck exam: Positive for: Normal Inspection - Respiratory Exam Respiratory Exam: Clear to Auscultation Bilateral, Prolonged Expiratory Phase - Cardiovascular Exam Cardiovascular Exam: REGULAR RHYTHM, +S1, +S2 - GI/Abdominal Exam GI & Abdominal Exam: Firm, Hypoactive Bowel Sounds - Extremities Exam Extremities exam: Positive for: pedal edema, tenderness, pedal pulses present - Back Exam Back exam: NORMAL INSPECTION - Neurological Exam Neurological exam: Alert, Oriented x3 - Psychiatric Exam Psychiatric exam: Normal Affect, Normal Mood - Skin Skin Exam: Normal Color Results - Vital Signs Recent Vital Signs: Last Vital Signs Temp 97.7 F 02/02/18 07:00 Pulse 104 H 02/02/18 10:54 Resp 18 02/02/18 07:00 BP 157/75 H 02/02/18 10:54 Pulse Ox 96 02/02/18 07:00 - Labs Result Diagrams: 02/01/18 02:00 02/01/18 02:00 Labs: Laboratory Results - last 24 hr 01/30/18 01/31/18 01/31/18 21:37 06:21 11:19 POC Glucose (mg/dL) 331 H 337 H 474 H* Urine Color Urine Clarity Urine pH Ur Specific [place] Urine Protein Urine Glucose (UA) Urine Ketones Urine Blood Urine Nitrate Urine Bilirubin Urine Urobilinogen Ur Leukocyte Esterase Urine WBC (Auto) Urine RBC (Auto) Ur Squamous Epith Cells Urine Bacteria 01/31/18 01/31/18 02/01/18 16:59 21:09 00:48 POC Glucose (mg/dL) 398 H 162 H 158 H Urine Color Urine Clarity Urine pH Ur Specific [place] Urine Protein Urine Glucose (UA) Urine Ketones Urine Blood Urine Nitrate Urine Bilirubin Urine Urobilinogen Ur Leukocyte Esterase Urine WBC (Auto) Urine RBC (Auto) Ur Squamous Epith Cells Urine Bacteria 02/01/18 02/01/18 02/01/18 06:28 11:32 16:57 POC Glucose (mg/dL) 208 H 320 H 400 H* Urine Color Urine Clarity Urine pH Ur Specific [place] Urine Protein Urine Glucose (UA) Urine Ketones Urine Blood Urine Nitrate Urine Bilirubin Urine Urobilinogen Ur Leukocyte Esterase Urine WBC (Auto) Urine RBC (Auto) Ur Squamous Epith Cells Urine Bacteria 02/01/18 02/01/18 02/02/18 20:53 22:00 01:58 POC Glucose (mg/dL) 378 H 378 H Urine Color Yellow Urine Clarity Clear Urine pH 6.0 Ur Specific [place] 1.010 Urine Protein Negative Urine Glucose (UA) Normal Urine Ketones Negative Urine Blood Negative Urine Nitrate Negative Urine Bilirubin Negative Urine Urobilinogen Normal Ur Leukocyte Esterase Neg Urine WBC (Auto) 3 Urine RBC (Auto) < 1 Ur Squamous Epith Cells < 1 Urine Bacteria Few H 02/02/18 02/02/18 06:34 11:06 POC Glucose (mg/dL) 346 H 320 H Urine Color Urine Clarity Urine pH Ur Specific [place] Urine Protein Urine Glucose (UA) Urine Ketones Urine Blood Urine Nitrate Urine Bilirubin Urine Urobilinogen Ur Leukocyte Esterase Urine WBC (Auto) Urine RBC (Auto) Ur Squamous Epith Cells Urine Bacteria Assessment & Plan - Assessment and Plan (Free Text) Assessment: 72 year old female with history of multiple cancers Plan: Portacath tomorrow NPO at midnight Hold Lovenox in the morning Will postpone surgery if blood cx grow back positive F/u am labs Continue antibiotics per ID Further recs per Dr. Radha Marquez PGY-1 - Date & Time Date: 02/02/18 Time: 17:08
[2018-02-02] MEDS: Ferric Sodium Gluconat Complex 125 MG in Sodium Chloride 0.9% 100 ML IVPB SCH (16:50)
[2018-02-02 17:35] LABS: URINE BILIRUBIN NEGATIVE (NEGATIVE); URINE BLOOD NEGATIVE (NEGATIVE); URINE CLARITY Hazy (Clear); URINE COLOR Yellow (YELLOW); URINE GLUCOSE (UA) NORMAL (Normal); URINE LEUKOCYTE ESTERASE TRACE Leu/uL (Negative); URINE PROTEIN 1+ mg/dL (NEGATIVE); URINE UROBILINOGEN NORMAL mg/dL (0.2-1.0)
--- NOTE | 2018-02-02 18:33 | CP.PCM.PN ---
Subjective - Date & Time of Evaluation Date of Evaluation: 02/02/18 Time of Evaluation: 09:15 - Subjective Subjective: clinically same Objective - Vital Signs/Intake and Output Vital Signs (last 24 hours): Temp Pulse Resp BP Pulse Ox 98.4 F 95 H 20 165/86 H 95 02/02/18 15:00 02/02/18 15:00 02/02/18 15:00 02/02/18 17:49 02/02/18 15:00 Intake and Output: 02/02/18 02/02/18 06:59 18:59 Intake Total 800 Output Total 725 Balance 75 - Medications Medications: Current Medications Albuterol/Ipratropium (Duoneb 3 Mg/0.5 Mg (3 Ml) Ud) 3 ml INH RQ6 [facility] Last Admin: 02/02/18 13:37 Dose: Not Given Amlodipine Besylate (Norvasc) 5 mg PO DAILY [facility] Last Admin: 02/02/18 10:56 Dose: 5 mg Enoxaparin Sodium (Lovenox) 40 mg SC DAILY [facility] Last Admin: 02/02/18 10:55 Dose: 40 mg Furosemide (Lasix) 40 mg IVP BID [facility] Last Admin: 02/02/18 17:49 Dose: 40 mg Glimepiride (Amaryl) 2 mg PO BID [facility] Last Admin: 02/02/18 17:45 Dose: 2 mg Hydralazine HCl (Apresoline) 50 mg PO BID [facility] Last Admin: 02/02/18 17:45 Dose: 50 mg Ferric Sodium Gluconate Complex 125 mg/ Sodium Chloride 110 mls @ 110 mls/hr IVPB Q24H [facility] Stop: 02/04/18 16:01 Last Admin: 02/02/18 16:50 Dose: 110 mls/hr Vancomycin/Sodium Chloride (Vancomycin 1 Gm/Ns 200 Ml) 1 gm in 200 mls @ 133.333 mls/hr IVPB Q12H [facility] PRN Reason: Protocol Stop: 02/06/18 02:31 Last Admin: 02/02/18 15:40 Dose: 133.333 mls/hr Cefepime HCl (Maxipime Iv 1 Gm Premix) 1 gm in 50 mls @ 100 mls/hr IVPB Q8H [facility] PRN Reason: Protocol Last Admin: 02/02/18 14:10 Dose: 100 mls/hr Insulin Aspart (Novolog) 0 unit SC ACHS [facility] PRN Reason: Protocol Last Admin: 02/02/18 17:10 Dose: 1 units Lisinopril (Zestril) 20 mg PO DAILY [facility] Last Admin: 02/02/18 10:55 Dose: 20 mg Methylprednisolone (Solu-Medrol) 40 mg IVP Q12H [facility] Metoprolol Succinate (Toprol Xl) 50 mg PO DAILY [facility] Last Admin: 02/02/18 10:56 Dose: 50 mg Multivitamins (Hexavitamin) 1 tab PO DAILY [facility] Last Admin: 02/02/18 10:55 Dose: 1 tab Pantoprazole Sodium (Protonix Ec Tab) 40 mg PO DAILY [facility] Last Admin: 02/02/18 10:55 Dose: 40 mg Pioglitazone HCl (Actos) 30 mg PO QPM [facility] Last Admin: 02/02/18 17:45 Dose: 30 mg Fluticasone/Salmeterol (Advair Diskus 250/50) 1 puff INH RQ12 [facility] Last Admin: 02/02/18 07:36 Dose: 1 puff Sodium Chloride ([place] Baby Saline 30 Ml) 0 ml CORAL Q4H PRN PRN Reason: Dry nasal passages Temazepam (Restoril) 30 mg PO HS PRN PRN Reason: Insomnia Last Admin: 02/01/18 21:02 Dose: 30 mg Tiotropium [place] (Spiriva) 18 mcg INH RQ24 [facility] Last Admin: 02/02/18 07:36 Dose: 18 mcg - Labs Labs: 02/01/18 02:00 02/01/18 02:00 PT 15.9 SECONDS (9.7-12.2) H 01/28/18 10:14 INR 1.5 01/28/18 10:14 APTT 30 SECONDS (21-34) 01/28/18 10:14 - Constitutional Appears: Well - Head Exam Head Exam: ATRAUMATIC, NORMAL INSPECTION, NORMOCEPHALIC - Eye Exam Eye Exam: EOMI, Normal appearance, PERRL Pupil Exam: NORMAL ACCOMODATION, PERRL - ENT Exam ENT Exam: Mucous Membranes Moist, Normal Exam - Neck Exam Neck Exam: Full ROM, Normal Inspection. absent: Lymphadenopathy - Respiratory Exam Respiratory Exam: Decreased Breath Sounds - Cardiovascular Exam Cardiovascular Exam: REGULAR RHYTHM, +S1, +S2 - GI/Abdominal Exam GI & Abdominal Exam: Soft, Diminished Bowel Sounds - Rectal Exam Rectal Exam: Deferred
--- NOTE | 2018-02-02 19:50 | CP.PCM.PN ---
Subjective - Date & Time of Evaluation Date of Evaluation: 02/02/18 Time of Evaluation: 19:47 - Subjective Subjective: no new complaints leg edema improved Objective - Vital Signs/Intake and Output Vital Signs (last 24 hours): Temp Pulse Resp BP Pulse Ox 98.4 F 95 H 20 165/86 H 95 02/02/18 15:00 02/02/18 15:00 02/02/18 15:00 02/02/18 17:49 02/02/18 15:00 - Medications Medications: Current Medications Albuterol/Ipratropium (Duoneb 3 Mg/0.5 Mg (3 Ml) Ud) 3 ml INH RQ6 [facility] Last Admin: 02/02/18 13:37 Dose: Not Given Amlodipine Besylate (Norvasc) 5 mg PO DAILY [facility] Last Admin: 02/02/18 10:56 Dose: 5 mg Enoxaparin Sodium (Lovenox) 40 mg SC DAILY [facility] Last Admin: 02/02/18 10:55 Dose: 40 mg Furosemide (Lasix) 40 mg IVP BID [facility] Last Admin: 02/02/18 17:49 Dose: 40 mg Glimepiride (Amaryl) 2 mg PO BID [facility] Last Admin: 02/02/18 17:45 Dose: 2 mg Hydralazine HCl (Apresoline) 50 mg PO BID [facility] Last Admin: 02/02/18 17:45 Dose: 50 mg Ferric Sodium Gluconate Complex 125 mg/ Sodium Chloride 110 mls @ 110 mls/hr IVPB Q24H [facility] Stop: 02/04/18 16:01 Last Admin: 02/02/18 16:50 Dose: 110 mls/hr Vancomycin/Sodium Chloride (Vancomycin 1 Gm/Ns 200 Ml) 1 gm in 200 mls @ 133.333 mls/hr IVPB Q12H [facility] PRN Reason: Protocol Stop: 02/06/18 02:31 Last Admin: 02/02/18 15:40 Dose: 133.333 mls/hr Cefepime HCl (Maxipime Iv 1 Gm Premix) 1 gm in 50 mls @ 100 mls/hr IVPB Q8H [facility] PRN Reason: Protocol Last Admin: 02/02/18 14:10 Dose: 100 mls/hr Insulin Aspart (Novolog) 0 unit SC ACHS [facility] PRN Reason: Protocol Last Admin: 02/02/18 17:10 Dose: 1 units Lisinopril (Zestril) 20 mg PO DAILY [facility] Last Admin: 02/02/18 10:55 Dose: 20 mg Methylprednisolone (Solu-Medrol) 40 mg IVP Q12H [facility] Metoprolol Succinate (Toprol Xl) 50 mg PO DAILY [facility] Last Admin: 02/02/18 10:56 Dose: 50 mg Multivitamins (Hexavitamin) 1 tab PO DAILY [facility] Last Admin: 02/02/18 10:55 Dose: 1 tab Pantoprazole Sodium (Protonix Ec Tab) 40 mg PO DAILY [facility] Last Admin: 02/02/18 10:55 Dose: 40 mg Pioglitazone HCl (Actos) 30 mg PO QPM [facility] Last Admin: 02/02/18 17:45 Dose: 30 mg Fluticasone/Salmeterol (Advair Diskus 250/50) 1 puff INH RQ12 [facility] Last Admin: 02/02/18 07:36 Dose: 1 puff Sodium Chloride ([place] Baby Saline 30 Ml) 0 ml CORAL Q4H PRN PRN Reason: Dry nasal passages Temazepam (Restoril) 30 mg PO HS PRN PRN Reason: Insomnia Last Admin: 02/01/18 21:02 Dose: 30 mg Tiotropium [place] (Spiriva) 18 mcg INH RQ24 [facility] Last Admin: 02/02/18 07:36 Dose: 18 mcg - Labs Labs: 02/01/18 02:00 02/01/18 02:00 PT 15.9 SECONDS (9.7-12.2) H 01/28/18 10:14 INR 1.5 01/28/18 10:14 APTT 30 SECONDS (21-34) 01/28/18 10:14 - Constitutional Appears: Chronically Ill - Head Exam Head Exam: ATRAUMATIC, NORMAL INSPECTION, NORMOCEPHALIC - Eye Exam Eye Exam: EOMI, Normal appearance, PERRL - ENT Exam ENT Exam: Mucous Membranes Moist, Normal Oropharynx - Neck Exam Neck Exam: Normal Inspection - Respiratory Exam Respiratory Exam: NORMAL BREATHING PATTERN (distant breath sounds). absent: Rhonchi, Wheezes - Cardiovascular Exam Cardiovascular Exam: REGULAR RHYTHM - GI/Abdominal Exam GI & Abdominal Exam: Soft. absent: Tenderness - Extremities Exam Extremities Exam: Normal Inspection, Pedal Edema. absent: Calf Tenderness - Neurological Exam Neurological Exam: Alert, Awake - Skin Skin Exam: Normal Color, Warm Assessment and Plan - Assessment and Plan (Free Text) Assessment: 2D echo images viewed by me: LVH, EF 65%; Stage I diastolic dysfunction, consistent with normal left atrial pressure Lymphadenopathy Anemia Low albumin COPD HTN DM Plan 1. Continue lasix to 40 IV q12 and transition to PO once adequate volume status 2. for uncontrolled BP suggest increase hydralazine to 100 TID 3. Leg elevation and DVT prophylaxis, wound care nurse to apply UNNA boots or compression stockings 4. This is not due to CHF and probably a outflow problem from abdominal or venous pathology, given normal LVEF
[2018-02-03] MEDS: Albuterol-Ipratrop 3 mg / 0.5 (3 ml) UD INH SCH ×4 (01:16→20:39)
[2018-02-03] MEDS: Vancomycin 1 gm/NS 200 ml 1 GM/200 ML BAG IVPB SCH ×2 (01:37→14:57)
[2018-02-03] MEDS: MethylPREDNISolone 40 mg Vial IVP SCH ×2 (05:10→17:44)
[2018-02-03] MEDS: Cefepime IV 1 gm in Dextrose 1 GM/50 ML BAG IVPB SCH ×2 (05:10→13:46)
[2018-02-03 07:38] LABS: BASO % 0.3 % (0.0-2.0); EOS % 0.1 % (0.0-4.0); HEMOGLOBIN 9.2 g/dL (11.0-16.0); LYMPH # 0.2 K/uL (1.0-4.3); LYMPH % 1.8 % (20.0-40.0); MEAN CELL VOLUME 71.7 fL (81.0-99.0); MEAN CORPUSCULAR HEMOGLOBIN 23.5 pg (27.0-31.0); MEAN CORPUSCULAR HGB CONC 32.7 g/dL (33.0-37.0); MEAN PLATELET VOLUME 10.5 fL (7.2-11.7); MONO # 0.8 K/uL (0.0-0.8); MONO % 8.5 % (0.0-10.0); NEUT # 8.5 K/uL (1.8-7.0); NEUT % 89.3 % (50.0-75.0); NRBC % 0.6 % (0.0-2.0); PLATELET COUNT 131 K/uL (130-400); RED CELL DISTRIBUTION WIDTH 27.5 % (11.5-14.5); WHITE BLOOD COUNT 9.5 K/uL (4.8-10.8)
[2018-02-03] MEDS: Fluticasone-Salmeterol 250-50mcg Diskus INH SCH ×2 (07:45→20:39)
[2018-02-03] MEDS: Tiotropium 18 mcg Cap For Inhalation INH SCH (07:45)
[2018-02-03 07:56] LABS: ALB/GLOB RATIO 0.8 (1.0-2.1); ALBUMIN 2.5 g/dL (3.5-5.0); ALT/SGPT 54 U/L (9-52); AST/SGOT 26 U/L (14-36); BLOOD UREA NITROGEN 32 mg/dL (7-17); CALCIUM 9.5 mg/dl (8.6-10.4); GFR NON-AFRICAN AMERICAN > 60
[2018-02-03] MEDS: (Novolog) Insulin Aspart, Recombinant 100 u/ml 10 ml vial SC SCH ×3 (08:30→17:45)
[2018-02-03 09:03] LABS: BANDS 2 % (0-2); MONOCYTE 5 % (0-10); MYELOCYTE 1 % (0-0); REACTIVE LYMPHOCYTES 2 % (0-0); TOTAL CELLS COUNTED 100
[2018-02-03 09:04] LABS: ANISOCYTOSIS SLIGHT; HYPOCHROMIC SLIGHT; LYMPHOCYTE 5 % (20-40); NEUTROPHIL 85 % (50-75); PLATELET ESTIMATE NORMAL (NORMAL); POIKILOCYTOSIS SLIGHT
[2018-02-03 09:05] LABS: OVALOCYTES SLIGHT; TARGET CELLS SLIGHT
[2018-02-03] MEDS ORDERED: HEPARIN-NS 5,000 UNITS/500 ML 0 UNIT/0 ML BAG IV ONE (10:48)
[2018-02-03] MEDS ORDERED: ceFAZolin 1 gm FROZEN Premix 0 GM/0 ML ML IVPB ONE (10:49)
[2018-02-03] MEDS ORDERED: Lidocaine Hydrochloride 0 ML INJ ONE (10:49)
[2018-02-03] MEDS: Multiple Vitamins Tab PO SCH (10:55)
[2018-02-03] MEDS: Pantoprazole 40 mg EC Tab PO SCH (10:55)
[2018-02-03] MEDS: Metoprolol Succinate 50 mg XL Tab PO SCH (10:56)
--- NOTE | 2018-02-03 10:56 | CP.PCM.PN ---
Subjective - Date & Time of Evaluation Date of Evaluation: 02/03/18 Time of Evaluation: 10:55 - Subjective Subjective: Sitting up in bed no acute distress leg edema improved Objective - Vital Signs/Intake and Output Vital Signs (last 24 hours): Temp Pulse Resp BP Pulse Ox 98.0 F 85 18 143/85 96 02/03/18 07:00 02/03/18 07:15 02/03/18 07:00 02/03/18 07:00 02/03/18 07:00 Intake and Output: 02/03/18 02/03/18 06:59 18:59 Intake Total 750 Output Total 1900 Balance -1150 - Medications Medications: Current Medications Albuterol/Ipratropium (Duoneb 3 Mg/0.5 Mg (3 Ml) Ud) 3 ml INH RQ6 [facility] Last Admin: 02/03/18 07:43 Dose: 3 ml Amlodipine Besylate (Norvasc) 5 mg PO DAILY [facility] Last Admin: 02/02/18 10:56 Dose: 5 mg Enoxaparin Sodium (Lovenox) 40 mg SC DAILY [facility] Last Admin: 02/02/18 10:55 Dose: 40 mg Furosemide (Lasix) 40 mg IVP BID [facility] Last Admin: 02/02/18 17:49 Dose: 40 mg Glimepiride (Amaryl) 2 mg PO BID [facility] Last Admin: 02/03/18 10:54 Dose: Not Given Hydralazine HCl (Apresoline) 50 mg PO BID [facility] Last Admin: 02/02/18 17:45 Dose: 50 mg Ferric Sodium Gluconate Complex 125 mg/ Sodium Chloride 110 mls @ 110 mls/hr IVPB Q24H [facility] Stop: 02/04/18 16:01 Last Admin: 02/02/18 16:50 Dose: 110 mls/hr Vancomycin/Sodium Chloride (Vancomycin 1 Gm/Ns 200 Ml) 1 gm in 200 mls @ 133.333 mls/hr IVPB Q12H [facility] PRN Reason: Protocol Stop: 02/06/18 02:31 Last Admin: 02/03/18 01:37 Dose: 133.333 mls/hr Cefepime HCl (Maxipime Iv 1 Gm Premix) 1 gm in 50 mls @ 100 mls/hr IVPB Q8H [facility] PRN Reason: Protocol Last Admin: 02/03/18 05:10 Dose: 100 mls/hr Insulin Aspart (Novolog) 0 unit SC ACHS [facility] PRN Reason: Protocol Last Admin: 02/03/18 08:30 Dose: Not Given Lisinopril (Zestril) 20 mg PO DAILY [facility] Last Admin: 02/02/18 10:55 Dose: 20 mg Methylprednisolone (Solu-Medrol) 40 mg IVP Q12H [facility] Last Admin: 02/03/18 05:10 Dose: 40 mg Metoprolol Succinate (Toprol Xl) 50 mg PO DAILY [facility] Last Admin: 02/02/18 10:56 Dose: 50 mg Morphine Sulfate (Morphine) 2 mg IVP Q4 PRN PRN Reason: Pain, severe (8-10) Last Admin: 02/03/18 01:46 Dose: 2 mg Multivitamins (Hexavitamin) 1 tab PO DAILY [facility] Last Admin: 02/02/18 10:55 Dose: 1 tab Pantoprazole Sodium (Protonix Ec Tab) 40 mg PO DAILY [facility] Last Admin: 02/02/18 10:55 Dose: 40 mg Pioglitazone HCl (Actos) 30 mg PO QPM [facility] Last Admin: 02/02/18 17:45 Dose: 30 mg Fluticasone/Salmeterol (Advair Diskus 250/50) 1 puff INH RQ12 [facility] Last Admin: 02/03/18 07:45 Dose: Not Given Sodium Chloride ([place] Baby Saline 30 Ml) 0 ml CORAL Q4H PRN PRN Reason: Dry nasal passages Temazepam (Restoril) 30 mg PO HS PRN PRN Reason: Insomnia Last Admin: 02/02/18 21:26 Dose: 30 mg Tiotropium [place] (Spiriva) 18 mcg INH RQ24 [facility] Last Admin: 02/03/18 07:45 Dose: Not Given - Labs Labs: 02/03/18 07:03 02/03/18 07:03 PT 15.9 SECONDS (9.7-12.2) H 01/28/18 10:14 INR 1.5 01/28/18 10:14 APTT 30 SECONDS (21-34) 01/28/18 10:14 - Constitutional Appears: Chronically Ill - Head Exam Head Exam: ATRAUMATIC, NORMAL INSPECTION, NORMOCEPHALIC - Eye Exam Eye Exam: EOMI, Normal appearance, PERRL - ENT Exam ENT Exam: Mucous Membranes Moist, Normal Oropharynx - Respiratory Exam Respiratory Exam: NORMAL BREATHING PATTERN. absent: Rhonchi, Wheezes - Cardiovascular Exam Cardiovascular Exam: REGULAR RHYTHM, +S1, +S2. absent: +S4, Murmur - Extremities Exam Extremities Exam: Normal Inspection, Pedal Edema. absent: Calf Tenderness - Neurological Exam Neurological Exam: Alert, Awake - Psychiatric Exam Psychiatric exam: Normal Affect - Skin Skin Exam: Normal Color, Warm Assessment and Plan - Assessment and Plan (Free Text) Assessment: 2D echo images viewed by me: LVH, EF 65%; Stage I diastolic dysfunction, consistent with normal left atrial pressure Lymphadenopathy Anemia Low albumin COPD HTN DM Plan 1. Continue lasix to 40 IV q12 and transition to PO once adequate volume status 2. for uncontrolled BP suggest increase hydralazine to 100 TID 3. Leg elevation and DVT prophylaxis, wound care nurse to apply UNNA boots or compression stockings 4. This is not due to CHF and probably a outflow problem from abdominal or venous pathology, given normal LVEF
[2018-02-03] MEDS ORDERED: Lidocaine Hydrochloride 10 ML INJ ONE ×2 (11:38→13:24)
[2018-02-03] MEDS ORDERED: HEPARIN-NS 5,000 UNITS/500 ML 5,000 UNIT/500 ML BAG IV ONE (11:38)
[2018-02-03] MEDS ORDERED: Propofol 10 mg/ml Inj (20 ML) ONE (12:28)
--- NOTE | 2018-02-03 13:14 | VASCLAB ---
Date of service: 02/02/2018 PROCEDURE: Lower Extremity Venous Duplex Exam. HISTORY: Left leg swelling r/o DVT PRIORS: None. TECHNIQUE: Bilateral common femoral, femoral, popliteal and posterior tibial, peroneal and great saphenous veins were evaluated. Flow was assessed with color Doppler, compressibility, assessment of phasic flow and augmentation response. Report prepared by ED Call FINDINGS: RIGHT: 1. Common Femoral Vein: 1.1. Compressibility - Fully compressible: Thrombus - None : Flow - Phasic: Augmentation -Normal: Reflux - None. 2. Femoral Vein: 2.1. Compressibility - Fully compressible: Thrombus - None : Flow - Phasic: Augmentation -Normal: Reflux - None. 3. Popliteal Vein: 3.1. Compressibility - Fully compressible: Thrombus - None : Flow - Phasic: Augmentation -Normal: Reflux - None. 4. Posterior Tibial Vein: 4.1. Compressibility - Fully compressible: Thrombus - None: Flow - Phasic: Augmentation -Normal: Reflux - None. 5. Peroneal Vein: 5.1. Compressibility - Fully compressible: Thrombus - None: Flow - Phasic: Augmentation -Normal: Reflux - None. 6. Great Saphenous Vein: 6.1. Compressibility - Fully compressible: Thrombus - None: Flow - Phasic: Augmentation - Normal: Reflux - None. LEFT: 1. Common Femoral Vein: 1.1. Compressibility - Fully compressible: Thrombus - None: Flow - Phasic: Augmentation -Normal: Reflux - None. 2. Femoral Vein: 2.1. Compressibility - Fully compressible: Thrombus - None: Flow - Phasic: Augmentation -Normal: Reflux - None. 3. Popliteal Vein: 3.1. Compressibility - Fully compressible: Thrombus - None : Flow - Phasic: Augmentation -Normal: Reflux - None. 4. Posterior Tibial Vein: 4.1. Compressibility - Fully compressible: Thrombus - None: Flow - Phasic: Augmentation -Normal: Reflux - None. 5. Peroneal Vein: 5.1. Compressibility - Fully compressible: Thrombus - None: Flow - Phasic: Augmentation -Normal: Reflux - None. 6. Great Saphenous Vein: 6.1. Compressibility - Fully compressible: Thrombus - None: Flow - Phasic: Augmentation - Normal: Reflux - None. OTHER FINDINGS: Right: None significant. Left: None significant. IMPRESSION: Right: No evidence of deep or superficial vein thrombosis of the right lower extremity. Normal valve function noted of the right side. Left: No evidence of deep or superficial vein thrombosis of the left lower extremity. Normal valve function noted of the left side.
[2018-02-03] MEDS ORDERED: HYDROmorphone 0.5 mg/0.5 ml ISec IVP PRN (13:51)
--- NOTE | 2018-02-03 13:52 | PCM.SURG1 ---
Surgeon's Initial Post Op Note - Surgeon's Notes Surgeon: Dr. Garcia Quality System Manager: Romina Ramachandran, PGY 1 Jamie Gruber, MS4 Juan Francisco Vazquez MS3 Type of Anesthesia: Moderate Sedation{RN} Pre-Operative Diagnosis: lyphoma Operative Findings: see report Post-Operative Diagnosis: same Operation Performed: right internal jugular powerport placement with Ultrasound and fluoroscopic guidance Specimen/Specimens Removed: none Estimated Blood Loss: EBL {In ML}: 5 Blood Products Given: N/A Drains Used: No Drains Post-Op Condition: Fair Date of Surgery/Procedure: 02/03/18 Time of Surgery/Procedure: 12:30
--- NOTE | 2018-02-03 14:19 | RAD ---
Date of service: 02/03/2018 HISTORY: portacath placement COMPARISON: 02/01/2018 FINDINGS: LUNGS: Prominent interstitial lung markings compatible with pulmonary interstitial edema -similar to slightly increased. Trace discoid atelectasis left lung base similar. PLEURA: No significant pleural effusion identified, no pneumothorax apparent. CARDIOVASCULAR: Mild cardiomegaly-similar. Pulmonary venous congestion - slightly increased. Since prior exam Interval Port-A-Cath insertion tip superior vena cava. OSSEOUS STRUCTURES: No significant abnormalities. VISUALIZED UPPER ABDOMEN: Normal. OTHER FINDINGS: None. IMPRESSION: Interval Port-A-Cath insertion. Tip superior vena cava. No pneumothorax. Cardiomegaly similar. Further interval increased pulmonary venous congestion
--- NOTE | 2018-02-03 16:21 | RAD ---
Date of service: 02/03/2018 PROCEDURE: Intraoperative Fluoroscopy. HISTORY: LYNPHOMA FINDINGS: Fluoroscopic assistance was provided for Port-A-Cath placement. Please refer to the operative report from BERNADINE Navarro. Total fluoroscopic time (continuous mode) utilized during the procedure 27.7 (seconds). Dose report: DLP 0.1344 (mGy/ m2):
[2018-02-03] MEDS: Ferric Sodium Gluconat Complex 125 MG in Sodium Chloride 0.9% 100 ML IVPB SCH (18:09)
[2018-02-03] MEDS ORDERED: Promethazine DM 6.25 mg-15 mg/5 ml Syrup PO ONE (18:15)
--- NOTE | 2018-02-03 19:22 | CP.PCM.CON ---
History of Present Illness - History of Present Illness History of Present Illness: 72 yo woman with a history of breast cancer, found to have anemia, shortness of breath and generalized weakness, CAt scans showing diffuse generalized lymphadenopathy, biopsy consistent with diffuse large cell lymphoma. The patient remains weak, poor performance status,fair appetite. Past Patient History - Infectious Disease Hx of Infectious Diseases: None - Past Medical History & Family History Past Medical History?: Yes - Past Social History Smoking Status: Heavy Smoker > 10 Cigarettes Daily Chewing Tobacco Use: No Cigar Use: No - CARDIAC Hx Hypertension: Yes - PULMONARY Hx Respiratory Disorders: Yes (ABN CT SCAN) Hx Chronic Obstructive Pulmonary Disease (COPD): Yes - NEUROLOGICAL Hx Neurological Disorder: No - HEENT Hx HEENT Problems: No - RENAL Hx Chronic Kidney Disease: No - ENDOCRINE/METABOLIC Hx Diabetes Mellitus Type 2: Yes - HEMATOLOGICAL/ONCOLOGICAL Hx Anemia: Yes - INTEGUMENTARY Hx Dermatological Problems: No - MUSCULOSKELETAL/RHEUMATOLOGICAL Hx Osteoporosis: Yes - GASTROINTESTINAL Hx Gall Bladder Disease: Yes - GENITOURINARY/GYNECOLOGICAL Hx Genitourinary Disorders: Yes Hx Cervical Cancer: Yes (Cervical cancer in 1978) Hx Urinary Tract Infection: Yes (TREATED) - PSYCHIATRIC Hx Substance Use: No - SURGICAL HISTORY Hx Surgeries: Yes Hx Hysterectomy: Yes (40 yrs.ago) Hx Mastectomy: Yes (1998-surgery) Other/Comment: 1978-stomack/cervical - ANESTHESIA Hx Anesthesia: Yes Hx Anesthesia Reactions: No Hx Malignant Hyperthermia: No Meds Allergies/Adverse Reactions: Allergies Allergy/AdvReac Type Severity Reaction Status Date / Time strawberry Allergy Intermediate ITCHING Verified 01/28/18 09:03 - Medications Medications: Current Medications Albuterol/Ipratropium (Duoneb 3 Mg/0.5 Mg (3 Ml) Ud) 3 ml INH RQ6 [facility] Last Admin: 02/03/18 13:40 Dose: Not Given Amlodipine Besylate (Norvasc) 5 mg PO DAILY [facility] Last Admin: 02/03/18 10:55 Dose: Not Given Enoxaparin Sodium (Lovenox) 40 mg SC DAILY [facility] Last Admin: 02/02/18 10:55 Dose: 40 mg Furosemide (Lasix) 40 mg IVP BID [facility] Last Admin: 02/03/18 17:44 Dose: 40 mg Glimepiride (Amaryl) 2 mg PO BID [facility] Last Admin: 02/03/18 17:45 Dose: 2 mg Hydralazine HCl (Apresoline) 50 mg PO BID [facility] Last Admin: 02/03/18 17:44 Dose: 50 mg Ferric Sodium Gluconate Complex 125 mg/ Sodium Chloride 110 mls @ 110 mls/hr IVPB Q24H [facility] Stop: 02/04/18 16:01 Last Admin: 02/03/18 18:09 Dose: 110 mls/hr Cefepime HCl (Maxipime Iv 1 Gm Premix) 1 gm in 50 mls @ 100 mls/hr IVPB Q8H [facility] PRN Reason: Protocol Last Admin: 02/03/18 13:46 Dose: Not Given Vancomycin HCl 1 gm/ Sodium (Chloride) 250 mls @ 167 mls/hr IVPB Q12H [facility] PRN Reason: Protocol Stop: 02/06/18 02:31 Insulin Aspart (Novolog) 0 unit SC ACHS [facility] PRN Reason: Protocol Last Admin: 02/03/18 17:45 Dose: 2 units Lisinopril (Zestril) 20 mg PO DAILY [facility] Last Admin: 02/03/18 10:56 Dose: Not Given Methylprednisolone (Solu-Medrol) 40 mg IVP Q12H [facility] Last Admin: 02/03/18 17:44 Dose: 40 mg Metoprolol Succinate (Toprol Xl) 50 mg PO DAILY [facility] Last Admin: 02/03/18 10:56 Dose: Not Given Morphine Sulfate (Morphine) 2 mg IVP Q4 PRN PRN Reason: Pain, severe (8-10) Last Admin: 02/03/18 17:45 Dose: 2 mg Multivitamins (Hexavitamin) 1 tab PO DAILY [facility] Last Admin: 02/03/18 10:55 Dose: Not Given Pantoprazole Sodium (Protonix Ec Tab) 40 mg PO DAILY [facility] Last Admin: 02/03/18 10:55 Dose: Not Given Pioglitazone HCl (Actos) 30 mg PO QPM [facility] Last Admin: 02/03/18 17:44 Dose: 30 mg Fluticasone/Salmeterol (Advair Diskus 250/50) 1 puff INH RQ12 [facility] Last Admin: 02/03/18 07:45 Dose: Not Given Sodium Chloride ([place] Baby Saline 30 Ml) 0 ml CORAL Q4H PRN PRN Reason: Dry nasal passages Temazepam (Restoril) 30 mg PO HS PRN PRN Reason: Insomnia Last Admin: 02/02/18 21:26 Dose: 30 mg Tiotropium [place] (Spiriva) 18 mcg INH RQ24 [facility] Last Admin: 02/03/18 07:45 Dose: Not Given Results - Vital Signs Recent Vital Signs: Last Vital Signs Temp 97.6 F 02/03/18 15:36 Pulse 91 H 02/03/18 15:36 Resp 18 02/03/18 15:36 BP 163/87 H 02/03/18 17:44 Pulse Ox 96 02/03/18 15:36 - Labs Result Diagrams: 02/03/18 07:03 02/03/18 07:03 Labs: Laboratory Results - last 24 hr 02/02/18 02/03/18 02/03/18 21:14 06:17 06:19 WBC RBC Hgb Hct MCV MCH MCHC RDW Plt Count MPV Neut % (Auto) Lymph % (Auto) [place] % (Auto) Eos % (Auto) Baso % (Auto) Neut # (Auto) Lymph # (Auto) [place] # (Auto) Eos # (Auto) Baso # (Auto) Neutrophils % (Manual) Band Neutrophils % Lymphocytes % (Manual) Reactive Lymphs % Monocytes % (Manual) Myelocytes % Platelet Estimate Hypochromasia (manual) Poikilocytosis (manual Anisocytosis (manual) Target Cells Ovalocytes Sodium Potassium Chloride Carbon Dioxide Anion Gap BUN Creatinine Est GFR ( Amer) Est GFR (Non-Af Amer) POC Glucose (mg/dL) 151 H 65 74 Random Glucose Calcium Magnesium Total Bilirubin AST ALT Alkaline Phosphatase Total Protein Albumin Globulin Albumin/Globulin Ratio 02/03/18 02/03/18 02/03/18 07:03 07:03 11:25 WBC 9.5 RBC 3.90 Hgb 9.2 L Hct 27.9 L MCV 71.7 L MCH 23.5 L MCHC 32.7 L RDW 27.5 H Plt Count 131 MPV 10.5 Neut % (Auto) 89.3 H Lymph % (Auto) 1.8 L Kane % (Auto) 8.5 Eos % (Auto) 0.1 Baso % (Auto) 0.3 Neut # (Auto) 8.5 H Lymph # (Auto) 0.2 L [place] # (Auto) 0.8 Eos # (Auto) 0.0 Baso # (Auto) 0.0 Neutrophils % (Manual) 85 H Band Neutrophils % 2 Lymphocytes % (Manual) 5 L Reactive Lymphs % 2 H Monocytes % (Manual) 5 Myelocytes % 1 H Platelet Estimate Normal Hypochromasia (manual) Slight Poikilocytosis (manual Slight Anisocytosis (manual) Slight Target Cells Slight Ovalocytes Slight Sodium 139 Potassium 3.9 Chloride 100 Carbon Dioxide 29 Anion Gap 13 BUN 32 H Creatinine 0.7 Est GFR ( Amer) > 60 Est GFR (Non-Af Amer) > 60 POC Glucose (mg/dL) 147 H Random Glucose 70 Calcium 9.5 Magnesium 1.9 Total Bilirubin 1.0 AST 26 ALT 54 H D Alkaline Phosphatase 131 H D Total Protein 5.4 L Albumin 2.5 L Globulin 3.0 Albumin/Globulin Ratio 0.8 L 02/03/18 16:42 WBC RBC Hgb Hct MCV MCH MCHC RDW Plt Count MPV Neut % (Auto) Lymph % (Auto) Kane % (Auto) Eos % (Auto) Baso % (Auto) Neut # (Auto) Lymph # (Auto) Kane # (Auto) Eos # (Auto) Baso # (Auto) Neutrophils % (Manual) Band Neutrophils % Lymphocytes % (Manual) Reactive Lymphs % Monocytes % (Manual) Myelocytes % Platelet Estimate Hypochromasia (manual) Poikilocytosis (manual Anisocytosis (manual) Target Cells Ovalocytes Sodium Potassium Chloride Carbon Dioxide Anion Gap BUN Creatinine Est GFR ( Amer) Est GFR (Non-Af Amer) POC Glucose (mg/dL) 230 H Random Glucose Calcium Magnesium Total Bilirubin AST ALT Alkaline Phosphatase Total Protein Albumin Globulin Albumin/Globulin Ratio Assessment & Plan (1) Lymphoma of lymph nodes of multiple sites Assessment and Plan: 72 yo woman with diffuse large cell lymphoma, admitted with SOB, found to have iffuse lymphadenopathy, biopsy consistent with diffuse large B cell lymphoma, final path still pending. Have discussed with family regarding treatment options,ie, chemo R/CHOP, once the patient is discharged, hopefully, to start next week. Status: Acute
--- NOTE | 2018-02-03 19:50 | CP.PCM.PN ---
Subjective - Date & Time of Evaluation Date of Evaluation: 02/03/18 Time of Evaluation: 09:30 - Subjective Subjective: clinically same Objective - Vital Signs/Intake and Output Vital Signs (last 24 hours): Temp Pulse Resp BP Pulse Ox 97.6 F 91 H 18 163/87 H 96 02/03/18 15:36 02/03/18 15:36 02/03/18 15:36 02/03/18 17:44 02/03/18 15:36 Intake and Output: 02/03/18 02/04/18 18:59 06:59 Intake Total 462 Output Total 1500 Balance -1038 - Medications Medications: Current Medications Albuterol/Ipratropium (Duoneb 3 Mg/0.5 Mg (3 Ml) Ud) 3 ml INH RQ6 [facility] Last Admin: 02/03/18 13:40 Dose: Not Given Amlodipine Besylate (Norvasc) 5 mg PO DAILY [facility] Last Admin: 02/03/18 10:55 Dose: Not Given Enoxaparin Sodium (Lovenox) 40 mg SC DAILY [facility] Last Admin: 02/02/18 10:55 Dose: 40 mg Furosemide (Lasix) 40 mg IVP BID [facility] Last Admin: 02/03/18 17:44 Dose: 40 mg Glimepiride (Amaryl) 2 mg PO BID [facility] Last Admin: 02/03/18 17:45 Dose: 2 mg Hydralazine HCl (Apresoline) 50 mg PO BID [facility] Last Admin: 02/03/18 17:44 Dose: 50 mg Ferric Sodium Gluconate Complex 125 mg/ Sodium Chloride 110 mls @ 110 mls/hr IVPB Q24H [facility] Stop: 02/04/18 16:01 Last Admin: 02/03/18 18:09 Dose: 110 mls/hr Cefepime HCl (Maxipime Iv 1 Gm Premix) 1 gm in 50 mls @ 100 mls/hr IVPB Q8H [facility] PRN Reason: Protocol Last Admin: 02/03/18 13:46 Dose: Not Given Vancomycin HCl 1 gm/ Sodium (Chloride) 250 mls @ 167 mls/hr IVPB Q12H [facility] PRN Reason: Protocol Stop: 02/06/18 02:31 Insulin Aspart (Novolog) 0 unit SC ACHS [facility] PRN Reason: Protocol Last Admin: 02/03/18 17:45 Dose: 2 units Lisinopril (Zestril) 20 mg PO DAILY [facility] Last Admin: 02/03/18 10:56 Dose: Not Given Methylprednisolone (Solu-Medrol) 40 mg IVP Q12H [facility] Last Admin: 02/03/18 17:44 Dose: 40 mg Metoprolol Succinate (Toprol Xl) 50 mg PO DAILY [facility] Last Admin: 02/03/18 10:56 Dose: Not Given Morphine Sulfate (Morphine) 2 mg IVP Q4 PRN PRN Reason: Pain, severe (8-10) Last Admin: 02/03/18 17:45 Dose: 2 mg Multivitamins (Hexavitamin) 1 tab PO DAILY [facility] Last Admin: 02/03/18 10:55 Dose: Not Given Pantoprazole Sodium (Protonix Ec Tab) 40 mg PO DAILY [facility] Last Admin: 02/03/18 10:55 Dose: Not Given Pioglitazone HCl (Actos) 30 mg PO QPM [facility] Last Admin: 02/03/18 17:44 Dose: 30 mg Fluticasone/Salmeterol (Advair Diskus 250/50) 1 puff INH RQ12 [facility] Last Admin: 02/03/18 07:45 Dose: Not Given Sodium Chloride ([place] Baby Saline 30 Ml) 0 ml CORAL Q4H PRN PRN Reason: Dry nasal passages Temazepam (Restoril) 30 mg PO HS PRN PRN Reason: Insomnia Last Admin: 02/02/18 21:26 Dose: 30 mg Tiotropium [place] (Spiriva) 18 mcg INH RQ24 [facility] Last Admin: 02/03/18 07:45 Dose: Not Given - Labs Labs: 02/03/18 07:03 02/03/18 07:03 PT 15.9 SECONDS (9.7-12.2) H 01/28/18 10:14 INR 1.5 01/28/18 10:14 APTT 30 SECONDS (21-34) 01/28/18 10:14 - Constitutional Appears: Well - Head Exam Head Exam: ATRAUMATIC, NORMAL INSPECTION, NORMOCEPHALIC - Eye Exam Eye Exam: EOMI, Normal appearance, PERRL Pupil Exam: NORMAL ACCOMODATION, PERRL - ENT Exam ENT Exam: Mucous Membranes Moist, Normal Exam - Neck Exam Neck Exam: Full ROM, Normal Inspection. absent: Lymphadenopathy - Respiratory Exam Respiratory Exam: Decreased Breath Sounds - Cardiovascular Exam Cardiovascular Exam: REGULAR RHYTHM, +S1, +S2 - GI/Abdominal Exam GI & Abdominal Exam: Soft, Diminished Bowel Sounds - Rectal Exam Rectal Exam: Deferred
--- NOTE | 2018-02-04 00:23 | OP ---
Copied To: Rm Garcia Jr., MD Attending MD: Rm Garcia Jr., MD PROCEDURE DATE: 02/03/2018 PREOPERATIVE DIAGNOSES: Lack of venous access, lymphoma. POSTOPERATIVE DIAGNOSES: Lack of venous access, lymphoma. PROCEDURE CARRIED OUT: Placement of Port-A-Cath, PowerPort type, right jugular vein with C-arm fluoroscopy, ultrasound-guided puncture and micropuncture technique. SURGEON: Rm Garcia Jr, MD CIVIL ESTIMATOR: ANESTHESIOLOGIST: Mr. Benedict. INDICATION: The patient is a 72-year-old woman, recently diagnosed with lymphoma who requires a Port-A-Cath for chemotherapy. OPERATIVE FINDINGS: Port was placed uneventfully in the jugular vein. DESCRIPTION OF PROCEDURE: The patient was given local anesthesia. Using ultrasound guidance and micropuncture technique, the right jugular vein was punctured. Under fluoroscopic control, a guidewire was inserted centrally. This was exchanged with a 0.035 wire. A sheath dilator was passed over this. Then, the catheter was positioned with the tip in the superior vena cava, right atrial junction, coming through the jugular vein and exiting on the right chest wall. Blood loss for the procedure was 5 mL. Operation carried out is Port-A-Cath in right jugular vein with C-arm fluoroscopy, ultrasound-guided puncture, and micropuncture technique. Ultrasound imaging of the neck showed the vein maximal exploration was approximately 18 mm in diameter. Rm Garcia Jr., MD
[2018-02-04] MEDS: Albuterol-Ipratrop 3 mg / 0.5 (3 ml) UD INH SCH ×5 (02:53→19:55)
[2018-02-04] MEDS: Cefepime IV 1 gm in Dextrose 1 GM/50 ML BAG IVPB SCH ×3 (06:07→21:00)
[2018-02-04] MEDS: MethylPREDNISolone 40 mg Vial IVP SCH ×2 (06:07→18:01)
--- NOTE | 2018-02-04 07:45 | CP.PCM.PN ---
Subjective - Date & Time of Evaluation Date of Evaluation: 02/04/18 Time of Evaluation: 07:42 - Subjective Subjective: Mild lethargy constipation s/p shonna cath Large cell lymphoma: chemo planned Objective - Vital Signs/Intake and Output Vital Signs (last 24 hours): Temp Pulse Resp BP Pulse Ox 98.1 F 111 H 26 H 160/89 H 94 L 02/04/18 04:45 02/04/18 04:45 02/04/18 04:45 02/04/18 04:45 02/04/18 04:45 Intake and Output: 02/04/18 02/04/18 06:59 18:59 Output Total 1000 Balance -1000 - Medications Medications: Current Medications Albuterol/Ipratropium (Duoneb 3 Mg/0.5 Mg (3 Ml) Ud) 3 ml INH RQ6 [facility] Last Admin: 02/04/18 03:25 Dose: 3 ml Amlodipine Besylate (Norvasc) 5 mg PO DAILY [facility] Last Admin: 02/03/18 10:55 Dose: Not Given Enoxaparin Sodium (Lovenox) 40 mg SC DAILY [facility] Last Admin: 02/02/18 10:55 Dose: 40 mg Furosemide (Lasix) 40 mg IVP BID [facility] Last Admin: 02/03/18 17:44 Dose: 40 mg Glimepiride (Amaryl) 2 mg PO BID [facility] Last Admin: 02/03/18 17:45 Dose: 2 mg Hydralazine HCl (Apresoline) 50 mg PO BID [facility] Last Admin: 02/03/18 17:44 Dose: 50 mg Ferric Sodium Gluconate Complex 125 mg/ Sodium Chloride 110 mls @ 110 mls/hr IVPB Q24H [facility] Stop: 02/04/18 16:01 Last Admin: 02/03/18 18:09 Dose: 110 mls/hr Cefepime HCl (Maxipime Iv 1 Gm Premix) 1 gm in 50 mls @ 100 mls/hr IVPB Q8H [facility] PRN Reason: Protocol Last Admin: 02/04/18 06:07 Dose: 100 mls/hr Vancomycin HCl 1 gm/ Sodium (Chloride) 250 mls @ 167 mls/hr IVPB Q12H [facility] PRN Reason: Protocol Stop: 02/06/18 02:31 Last Admin: 02/04/18 02:49 Dose: 167 mls/hr Insulin Aspart (Novolog) 0 unit SC ACHS [facility] PRN Reason: Protocol Last Admin: 02/03/18 17:45 Dose: 2 units Lisinopril (Zestril) 20 mg PO DAILY [facility] Last Admin: 02/03/18 10:56 Dose: Not Given Methylprednisolone (Solu-Medrol) 40 mg IVP Q12H [facility] Last Admin: 02/04/18 06:07 Dose: 40 mg Metoprolol Succinate (Toprol Xl) 50 mg PO DAILY [facility] Last Admin: 02/03/18 10:56 Dose: Not Given Morphine Sulfate (Morphine) 2 mg IVP Q4 PRN PRN Reason: Pain, severe (8-10) Last Admin: 02/04/18 03:25 Dose: 2 mg Multivitamins (Hexavitamin) 1 tab PO DAILY [facility] Last Admin: 02/03/18 10:55 Dose: Not Given Pantoprazole Sodium (Protonix Ec Tab) 40 mg PO DAILY [facility] Last Admin: 02/03/18 10:55 Dose: Not Given Pioglitazone HCl (Actos) 30 mg PO QPM [facility] Last Admin: 02/03/18 17:44 Dose: 30 mg Fluticasone/Salmeterol (Advair Diskus 250/50) 1 puff INH RQ12 [facility] Last Admin: 02/03/18 20:39 Dose: Not Given Sodium Chloride ([place] Baby Saline 30 Ml) 0 ml CORAL Q4H PRN PRN Reason: Dry nasal passages Temazepam (Restoril) 30 mg PO HS PRN PRN Reason: Insomnia Last Admin: 02/02/18 21:26 Dose: 30 mg Tiotropium [place] (Spiriva) 18 mcg INH RQ24 [facility] Last Admin: 02/03/18 07:45 Dose: Not Given - Labs Labs: 02/03/18 07:03 02/03/18 07:03 PT 15.9 SECONDS (9.7-12.2) H 01/28/18 10:14 INR 1.5 01/28/18 10:14 APTT 30 SECONDS (21-34) 01/28/18 10:14 - Constitutional Appears: Chronically Ill - Head Exam Head Exam: ATRAUMATIC, NORMAL INSPECTION, NORMOCEPHALIC - Eye Exam Eye Exam: Normal appearance - ENT Exam ENT Exam: Mucous Membranes Moist, Normal Oropharynx - Neck Exam Neck Exam: Full ROM, Normal Inspection - Respiratory Exam Respiratory Exam: Clear to Ausculation Bilateral. absent: Rhonchi, Wheezes - Cardiovascular Exam Cardiovascular Exam: REGULAR RHYTHM, +S1, +S2. absent: Murmur - GI/Abdominal Exam GI & Abdominal Exam: Distended, Normal Bowel Sounds. absent: Tenderness - Extremities Exam Extremities Exam: Normal Inspection. absent: Calf Tenderness, Pedal Edema - Neurological Exam Neurological Exam: Alert, Awake - Skin Skin Exam: Normal Color, Warm Assessment and Plan - Assessment and Plan (Free Text) Assessment: 2D echo images viewed by me: LVH, EF 65%; Stage I diastolic dysfunction, consistent with normal left atrial pressure Lymphadenopathy: large cell lymphoma hx of breast CA Anemia Low albumin COPD HTN DM Plan 1. Continue lasix to 40 IV q12 and transition to PO once adequate volume status 2. for uncontrolled BP suggest increase hydralazine to 100 TID, cont norvasc, BB and AILEEN-I 3. Leg elevation and DVT prophylaxis, wound care nurse to apply UNNA boots or compression stockings 4. This is not due to CHF and probably a outflow problem from abdominal or venous pathology, given normal LVEF
[2018-02-04] MEDS: Tiotropium 18 mcg Cap For Inhalation INH SCH (07:54)
[2018-02-04] MEDS: Fluticasone-Salmeterol 250-50mcg Diskus INH SCH ×2 (07:54→19:55)
[2018-02-04] MEDS: (Novolog) Insulin Aspart, Recombinant 100 u/ml 10 ml vial SC SCH ×4 (08:20→21:27)
[2018-02-04] MEDS: Metoprolol Succinate 50 mg XL Tab PO SCH (10:56)
[2018-02-04] MEDS: Multiple Vitamins Tab PO SCH (10:56)
[2018-02-04] MEDS: Pantoprazole 40 mg EC Tab PO SCH (10:56)
[2018-02-04 11:36] LABS: IRON 55 ug/dL (37-170)
[2018-02-04 11:46] LABS: % IRON SATURATION 37 (20-55); TOTAL IRON BINDING CAPACITY 150 ug/dL (250-450)
[2018-02-04 12:07] LABS: HEPATITIS B SURFACE AG Negative (NEGATIVE)
[2018-02-04 12:12] LABS: HEPATITIS B CORE AB NEGATIVE (NEGATIVE)
--- NOTE | 2018-02-04 15:37 | CP.PCM.PN ---
Subjective - Date & Time of Evaluation Date of Evaluation: 02/04/18 Time of Evaluation: 10:45 - Subjective Subjective: general surgery progress note for Dr. Garcia Patient seen and examined this morning at bedside. Patient has no complaints at this time. Patient denies CP SOB dizziness or swelling. patient is tolerating diet. Objective - Vital Signs/Intake and Output Vital Signs (last 24 hours): Temp Pulse Resp BP Pulse Ox 98.0 F 108 H 18 169/87 H 100 02/04/18 07:00 02/04/18 07:30 02/04/18 07:00 02/04/18 10:56 02/04/18 07:00 Intake and Output: 02/04/18 02/04/18 06:59 18:59 Output Total 1000 1800 Balance -1000 -1800 - Medications Medications: Current Medications Albuterol/Ipratropium (Duoneb 3 Mg/0.5 Mg (3 Ml) Ud) 3 ml INH RQ6 [facility] Last Admin: 02/04/18 13:47 Dose: 3 ml Amlodipine Besylate (Norvasc) 5 mg PO DAILY [facility] Last Admin: 02/04/18 10:56 Dose: 5 mg Enoxaparin Sodium (Lovenox) 40 mg SC DAILY [facility] Last Admin: 02/02/18 10:55 Dose: 40 mg Furosemide (Lasix) 40 mg IVP BID [facility] Last Admin: 02/04/18 10:56 Dose: 40 mg Glimepiride (Amaryl) 2 mg PO BID [facility] Last Admin: 02/04/18 10:56 Dose: 2 mg Hydralazine HCl (Apresoline) 50 mg PO BID [facility] Last Admin: 02/04/18 10:56 Dose: 50 mg Ferric Sodium Gluconate Complex 125 mg/ Sodium Chloride 110 mls @ 110 mls/hr IVPB Q24H [facility] Stop: 02/04/18 16:01 Last Admin: 02/03/18 18:09 Dose: 110 mls/hr Cefepime HCl (Maxipime Iv 1 Gm Premix) 1 gm in 50 mls @ 100 mls/hr IVPB Q8H [facility] PRN Reason: Protocol Last Admin: 02/04/18 14:04 Dose: 100 mls/hr Vancomycin HCl 1 gm/ Sodium (Chloride) 250 mls @ 167 mls/hr IVPB Q12H [facility] PRN Reason: Protocol Stop: 02/06/18 02:31 Last Admin: 02/04/18 02:49 Dose: 167 mls/hr Insulin Aspart (Novolog) 0 unit SC ACHS [facility] PRN Reason: Protocol Last Admin: 02/04/18 12:19 Dose: 2 units Lisinopril (Zestril) 20 mg PO DAILY [facility] Last Admin: 02/04/18 10:56 Dose: 20 mg Methylprednisolone (Solu-Medrol) 40 mg IVP Q12H [facility] Last Admin: 02/04/18 06:07 Dose: 40 mg Metoprolol Succinate (Toprol Xl) 50 mg PO DAILY [facility] Last Admin: 02/04/18 10:56 Dose: 50 mg Morphine Sulfate (Morphine) 2 mg IVP Q4 PRN PRN Reason: Pain, severe (8-10) Last Admin: 02/04/18 03:25 Dose: 2 mg Multivitamins (Hexavitamin) 1 tab PO DAILY [facility] Last Admin: 02/04/18 10:56 Dose: 1 tab Pantoprazole Sodium (Protonix Ec Tab) 40 mg PO DAILY [facility] Last Admin: 02/04/18 10:56 Dose: 40 mg Pioglitazone HCl (Actos) 30 mg PO QPM [facility] Last Admin: 02/03/18 17:44 Dose: 30 mg Fluticasone/Salmeterol (Advair Diskus 250/50) 1 puff INH RQ12 [facility] Last Admin: 02/04/18 07:54 Dose: Not Given Sodium Chloride ([place] Baby Saline 30 Ml) 0 ml CORAL Q4H PRN PRN Reason: Dry nasal passages Temazepam (Restoril) 30 mg PO HS PRN PRN Reason: Insomnia Last Admin: 02/02/18 21:26 Dose: 30 mg Tiotropium [place] (Spiriva) 18 mcg INH RQ24 [facility] Last Admin: 02/04/18 07:54 Dose: Not Given - Labs Labs: 02/03/18 07:03 02/03/18 07:03 PT 15.9 SECONDS (9.7-12.2) H 01/28/18 10:14 INR 1.5 01/28/18 10:14 APTT 30 SECONDS (21-34) 01/28/18 10:14 - Constitutional Appears: Well, Non-toxic, No Acute Distress - Head Exam Head Exam: ATRAUMATIC, NORMOCEPHALIC - ENT Exam ENT Exam: Mucous Membranes Moist - Respiratory Exam Respiratory Exam: NORMAL BREATHING PATTERN - Cardiovascular Exam Cardiovascular Exam: +S1, +S2 - GI/Abdominal Exam GI & Abdominal Exam: Soft. absent: Tenderness - Extremities Exam Extremities Exam: absent: Pedal Edema, Tenderness - Neurological Exam Neurological Exam: Alert, Awake - Psychiatric Exam Psychiatric exam: Normal Affect, Normal Mood - Skin Skin Exam: Dry, Intact, Normal Color, Warm. absent: Erythema Additional comments: dressing sin place, no signs of hematoma, incisions clean dry and intact Assessment and Plan - Assessment and Plan (Free Text) Assessment: 72 yr old female POD 1 s/p powerport placement, recovering well Plan: - incisions clean dry and intact, no SOB or CP - postop CXR confirmed placement, no pneumothorax - patient clear from surgical standpoint, please reconsult as necessary - d/w Dr. Garcia, all further recs per him Romina Ramachandran, PGY 1
--- NOTE | 2018-02-04 16:57 | PCM.FALL ---
Post Fall Progress Note - Post Fall Fall Date: 02/04/18 Fall Time: 16:35 Description of Fall: History obtained per patient's daughter who was present in the room during the encounter. Patient was being assisted to portable bedside commode, when she dropped her to knees. Patient was assisted back into bed. Patient denied pain. Patient remained at baseline mentation. Patient did not sustain trauma to her head, nor any other known area per daughter and clinical partner in the room. - Post Fall Exam Vital Sign: Temp Pulse Resp BP Pulse Ox 98.8 F 103 H 18 193/85 H 95 02/04/18 15:00 02/04/18 15:00 02/04/18 15:00 02/04/18 15:00 02/04/18 15:00 Eye Exam: Positive for: Pupils equal Skin Exam: Negative for: Bruising (No hematoma, purpura, abrasions) Other pertinent findings: Within normal limits. Some edema of lower extremities noted. Impression/Plan: Patient remained in current setting. Vital signs upon examination were blood pressure 198/87, heart rate 105, temperature 100.1, 90% on room air. Patient placed on nasal cannula. Advised patient care team to monitor patient carefully when she is transferring from bed to bedside commode.
[2018-02-04] MEDS: Ferric Sodium Gluconat Complex 125 MG in Sodium Chloride 0.9% 100 ML IVPB SCH (17:01)
--- NOTE | 2018-02-04 17:35 | CP.PCM.PN ---
Subjective - Date & Time of Evaluation Date of Evaluation: 02/04/18 Time of Evaluation: 07:00 - Subjective Subjective: growing enterococcus in urine IV rx in progress afeb alert IV ampicillin added Objective - Vital Signs/Intake and Output Vital Signs (last 24 hours): Temp Pulse Resp BP Pulse Ox 98.8 F 103 H 18 193/85 H 95 02/04/18 15:00 02/04/18 15:00 02/04/18 15:00 02/04/18 15:00 02/04/18 15:00 Intake and Output: 02/04/18 02/04/18 06:59 18:59 Intake Total 100 Output Total 1000 1800 Balance -1000 -1700 - Medications Medications: Current Medications Albuterol/Ipratropium (Duoneb 3 Mg/0.5 Mg (3 Ml) Ud) 3 ml INH RQ6 [facility] Last Admin: 02/04/18 13:47 Dose: 3 ml Amlodipine Besylate (Norvasc) 5 mg PO DAILY [facility] Last Admin: 02/04/18 10:56 Dose: 5 mg Enoxaparin Sodium (Lovenox) 40 mg SC DAILY [facility] Last Admin: 02/02/18 10:55 Dose: 40 mg Furosemide (Lasix) 40 mg IVP BID [facility] Last Admin: 02/04/18 10:56 Dose: 40 mg Glimepiride (Amaryl) 2 mg PO BID [facility] Last Admin: 02/04/18 10:56 Dose: 2 mg Hydralazine HCl (Apresoline) 50 mg PO BID [facility] Last Admin: 02/04/18 10:56 Dose: 50 mg Cefepime HCl (Maxipime Iv 1 Gm Premix) 1 gm in 50 mls @ 100 mls/hr IVPB Q8H [facility] PRN Reason: Protocol Last Admin: 02/04/18 14:04 Dose: 100 mls/hr Insulin Aspart (Novolog) 0 unit SC ACHS [facility] PRN Reason: Protocol Last Admin: 02/04/18 12:19 Dose: 2 units Ketorolac Tromethamine (Toradol) 15 mg IVP Q8H PRN PRN Reason: Pain, severe (8-10) Lisinopril (Zestril) 20 mg PO DAILY [facility] Last Admin: 02/04/18 10:56 Dose: 20 mg Methylprednisolone (Solu-Medrol) 40 mg IVP Q12H [facility] Last Admin: 02/04/18 06:07 Dose: 40 mg Metoprolol Succinate (Toprol Xl) 50 mg PO DAILY [facility] Last Admin: 02/04/18 10:56 Dose: 50 mg Morphine Sulfate (Morphine) 2 mg IVP Q4 PRN PRN Reason: Pain, severe (8-10) Last Admin: 02/04/18 03:25 Dose: 2 mg Multivitamins (Hexavitamin) 1 tab PO DAILY [facility] Last Admin: 02/04/18 10:56 Dose: 1 tab Pantoprazole Sodium (Protonix Ec Tab) 40 mg PO DAILY [facility] Last Admin: 02/04/18 10:56 Dose: 40 mg Pioglitazone HCl (Actos) 30 mg PO QPM [facility] Last Admin: 02/03/18 17:44 Dose: 30 mg Fluticasone/Salmeterol (Advair Diskus 250/50) 1 puff INH RQ12 [facility] Last Admin: 02/04/18 07:54 Dose: Not Given Sodium Chloride ([place] Baby Saline 30 Ml) 0 ml OCRAL Q4H PRN PRN Reason: Dry nasal passages Temazepam (Restoril) 30 mg PO HS PRN PRN Reason: Insomnia Last Admin: 02/02/18 21:26 Dose: 30 mg Tiotropium [place] (Spiriva) 18 mcg INH RQ24 [facility] Last Admin: 02/04/18 07:54 Dose: Not Given - Labs Labs: 02/03/18 07:03 02/03/18 07:03 PT 15.9 SECONDS (9.7-12.2) H 01/28/18 10:14 INR 1.5 01/28/18 10:14 APTT 30 SECONDS (21-34) 01/28/18 10:14 - Constitutional Appears: Non-toxic, Chronically Ill - Head Exam Head Exam: NORMOCEPHALIC - Eye Exam Eye Exam: PERRL - ENT Exam ENT Exam: Mucous Membranes Dry - Neck Exam Neck Exam: absent: Lymphadenopathy - Respiratory Exam Respiratory Exam: Decreased Breath Sounds, Rhonchi - Cardiovascular Exam Cardiovascular Exam: REGULAR RHYTHM, +S1, +S2 - GI/Abdominal Exam GI & Abdominal Exam: Distended, Soft. absent: Tenderness - Rectal Exam Rectal Exam: Deferred Assessment and Plan (1) CHF (congestive heart failure) Status: Acute (2) COPD exacerbation Status: Acute (3) Dehydration Status: Acute - Assessment and Plan (Free Text) Assessment: cont iv antibitics folow up cxr
--- NOTE | 2018-02-04 17:52 | CP.PCM.PN ---
Subjective - Date & Time of Evaluation Date of Evaluation: 02/04/18 Time of Evaluation: 09:30 - Subjective Subjective: clinically same Objective - Vital Signs/Intake and Output Vital Signs (last 24 hours): Temp Pulse Resp BP Pulse Ox 98.8 F 103 H 18 193/85 H 95 02/04/18 15:00 02/04/18 17:26 02/04/18 15:00 02/04/18 15:00 02/04/18 15:00 Intake and Output: 02/04/18 02/04/18 06:59 18:59 Intake Total 100 Output Total 1000 1800 Balance -1000 -1700 - Medications Medications: Current Medications Albuterol/Ipratropium (Duoneb 3 Mg/0.5 Mg (3 Ml) Ud) 3 ml INH RQ6 [facility] Last Admin: 02/04/18 13:47 Dose: 3 ml Amlodipine Besylate (Norvasc) 5 mg PO DAILY [facility] Last Admin: 02/04/18 10:56 Dose: 5 mg Enoxaparin Sodium (Lovenox) 40 mg SC DAILY [facility] Last Admin: 02/02/18 10:55 Dose: 40 mg Furosemide (Lasix) 40 mg IVP BID [facility] Last Admin: 02/04/18 10:56 Dose: 40 mg Glimepiride (Amaryl) 2 mg PO BID [facility] Last Admin: 02/04/18 10:56 Dose: 2 mg Hydralazine HCl (Apresoline) 50 mg PO BID [facility] Last Admin: 02/04/18 10:56 Dose: 50 mg Cefepime HCl (Maxipime Iv 1 Gm Premix) 1 gm in 50 mls @ 100 mls/hr IVPB Q8H [facility] PRN Reason: Protocol Last Admin: 02/04/18 14:04 Dose: 100 mls/hr Ampicillin 2 gm/ Sodium (Chloride) 100 mls @ 50 mls/hr IVPB Q6 [facility] PRN Reason: Protocol Insulin Aspart (Novolog) 0 unit SC ACHS [facility] PRN Reason: Protocol Last Admin: 02/04/18 12:19 Dose: 2 units Ketorolac Tromethamine (Toradol) 15 mg IVP Q8H PRN PRN Reason: Pain, severe (8-10) Lisinopril (Zestril) 20 mg PO DAILY [facility] Last Admin: 08/15/18 10:56 Dose: 20 mg Methylprednisolone (Solu-Medrol) 40 mg IVP Q12H [facility] Last Admin: 02/04/18 06:07 Dose: 40 mg Metoprolol Succinate (Toprol Xl) 50 mg PO DAILY [facility] Last Admin: 02/04/18 10:56 Dose: 50 mg Morphine Sulfate (Morphine) 2 mg IVP Q4 PRN PRN Reason: Pain, severe (8-10) Last Admin: 02/04/18 03:25 Dose: 2 mg Multivitamins (Hexavitamin) 1 tab PO DAILY [facility] Last Admin: 02/04/18 10:56 Dose: 1 tab Pantoprazole Sodium (Protonix Ec Tab) 40 mg PO DAILY [facility] Last Admin: 02/04/18 10:56 Dose: 40 mg Pioglitazone HCl (Actos) 30 mg PO QPM [facility] Last Admin: 02/03/18 17:44 Dose: 30 mg Fluticasone/Salmeterol (Advair Diskus 250/50) 1 puff INH RQ12 [facility] Last Admin: 02/04/18 07:54 Dose: Not Given Sodium Chloride ([place] Baby Saline 30 Ml) 0 ml CORAL Q4H PRN PRN Reason: Dry nasal passages Temazepam (Restoril) 30 mg PO HS PRN PRN Reason: Insomnia Last Admin: 02/02/18 21:26 Dose: 30 mg Tiotropium [place] (Spiriva) 18 mcg INH RQ24 [facility] Last Admin: 02/04/18 07:54 Dose: Not Given - Labs Labs: 02/03/18 07:03 02/03/18 07:03 PT 15.9 SECONDS (9.7-12.2) H 01/28/18 10:14 INR 1.5 01/28/18 10:14 APTT 30 SECONDS (21-34) 01/28/18 10:14 - Constitutional Appears: Well - Head Exam Head Exam: ATRAUMATIC, NORMAL INSPECTION, NORMOCEPHALIC - Eye Exam Eye Exam: EOMI, Normal appearance, PERRL Pupil Exam: NORMAL ACCOMODATION, PERRL - ENT Exam ENT Exam: Mucous Membranes Moist, Normal Exam - Neck Exam Neck Exam: Full ROM, Normal Inspection. absent: Lymphadenopathy - Respiratory Exam Respiratory Exam: Decreased Breath Sounds - Cardiovascular Exam Cardiovascular Exam: REGULAR RHYTHM, +S1, +S2 - GI/Abdominal Exam GI & Abdominal Exam: Soft, Diminished Bowel Sounds - Rectal Exam Rectal Exam: Deferred
[2018-02-04] MEDS: AMPicillin 2 GM in Sodium Chloride 100 ML IVPB SCH (18:32)
--- NOTE | 2018-02-04 20:12 | CON ---
Copied To: Brodie Krueger MD Attending MD: Brodie Krueger MD PROCEDURE DATE: 02/04/2018 FOLLOWUP ONCOLOGY CONSULTATION This is a 72-year-old woman with widespread lymphadenopathy. I spoke with pathologist yesterday. This seems to be a large cell lymphoma. I spoke with the daughter today and I explained that she is going to be put on chemotherapy with Rituxan and CHOP, and I explained some of the side effects including hair loss, anemia, weakness, infection, but also and I explained that the patient is very-very weak, she is very-very sick, and we are going to try and get a chemotherapy as soon as possible. She is on Solu-Medrol at this point and we will probably stop that before she goes to rehab. I am going to see if I can start her on the chemotherapy as soon as possible. or when she goes to rehab, we will get her back and forth from the rehab place and try to start her on chemotherapy as soon as possible either the end of this week or next week. Brodie Krueger MD
[2018-02-04] MEDS ORDERED: Albumin Human 25% (12.5 gm/50 ml) IV SCH ×2 (22:30→23:00)
--- NOTE | 2018-02-05 | PCM.RRT ---
FITNESS SALES ASSOCIATE Nurses Assessment - Situation Date: 01/31/18 Time FITNESS SALES ASSOCIATE was called: 23:35 FITNESS SALES ASSOCIATE Responder Arrival Time:: 23:36 FITNESS SALES ASSOCIATE Location:: Med/Surg Room Number: 565b FITNESS SALES ASSOCIATE Reason for Call: Tachycardia, O2 Saturation below 90% FITNESS SALES ASSOCIATE Called By: RN - IV IV Inserted during FITNESS SALES ASSOCIATE?: No New IV Insertion Tolerance: Good - Respiratory FITNESS SALES ASSOCIATE Delivery Method: Nasal Cannula @L/min Oxygen Flow Rate: 3 Received Nebulizer Treatments: No Was the Patient Ventilated with Bag/Mask 100% O2?: No Secretions Suctioned?: No Was the Patient Intubated?: No Was the Patient Placed on a Ventilator?: No - Ventilator Settings SAO2 %: 96 - Medication Medications Administered During FITNESS SALES ASSOCIATE: tylenol - Diagnostic Test Ordered EKG: No Chest X-Ray: No CT Scan: No - Stat Labs Ordered FITNESS SALES ASSOCIATE Stat Labs Ordered: CBC, BMP, BLOOD C&S X2 FITNESS SALES ASSOCIATE Other Labs Ordered: VBG, Procalcitonin CPR started during FITNESS SALES ASSOCIATE?: No - Vital Signs Vital Signs: Rapid Response Vital Sign Blood Pressure 189/93 Pulse Rate 120 Respiratory Rate 24 Temperature 102.4 F Oxygen Saturation 91 - Sepsis Screen Part 1 Sepsis Screen Part 1: Temperature over 100.6F - Time FITNESS SALES ASSOCIATE Ended Time FITNESS SALES ASSOCIATE Ended: 01:20 - Vital Signs at end of FITNESS SALES ASSOCIATE Vital Signs at end of FITNESS SALES ASSOCIATE: Rapid Response End Vital Sign Blood Pressure 138/67 Pulse Rate 104 Respiratory Rate 18 O2 Sat by Pulse Oximetry 98 - Recommendations Notifications: Family or Designated Caregiver I.Reason for FITNESS SALES ASSOCIATE - A) Acute Change in Patient: (Select all that apply): Staff member or family is worried about patient, Acute change in SpO2 less (O2 to 87%) - Respiratory Oxygen Delivery Method: Nasal Cannula @L/min Oxygen Flow Rate: 3 - Constitutional Appears: Non-toxic, No Acute Distress - Head Head Exam: ATRAUMATIC, NORMAL INSPECTION, NORMOCEPHALIC - Respiratory Exam Respiratory Exam: Rales, NORMAL BREATHING PATTERN - Cardiovascular Exam Cardiovascular Exam: Tachycardia, +S1, +S2 - GI/Abdominal Exam GI & Abdominal Exam: Soft, Normal Bowel Sounds - Extremities Exam Additional comments: right arm edema b/l le edema Plan - Assessment of Findings&Treatment Plan FITNESS SALES ASSOCIATE called for O2 saturation decreasing to 87% and increased lethargy. Nasal Cannula O2 increased Vital signs upon arrival: BP: 159/69, P: 105, O2: 92%, T: 98.3 Non-rebreather placed on patient. Patient had received Restoril 30mg for sleep. Daughter believes the patient has had this reaction to the Restoril before. Repeat vitals: BP: 150/74 P: 105, O2:99% T: 98.3 Restoril stopped.
[2018-02-05] MEDS: AMPicillin 2 GM in Sodium Chloride 100 ML IVPB SCH ×4 (00:08→18:08)
[2018-02-05] MEDS: Albuterol-Ipratrop 3 mg / 0.5 (3 ml) UD INH SCH ×4 (01:26→20:08)
[2018-02-05] MEDS: Cefepime IV 1 gm in Dextrose 1 GM/50 ML BAG IVPB SCH ×4 (06:27→22:54)
[2018-02-05] MEDS: MethylPREDNISolone 40 mg Vial IVP SCH ×2 (06:28→18:09)
[2018-02-05] MEDS: Tiotropium 18 mcg Cap For Inhalation INH SCH (07:53)
[2018-02-05] MEDS: Fluticasone-Salmeterol 250-50mcg Diskus INH SCH ×2 (07:53→20:07)
[2018-02-05 08:06] LABS: BLOOD UREA NITROGEN 33 mg/dL (7-17); CALCIUM 9.6 mg/dl (8.6-10.4); GFR NON-AFRICAN AMERICAN > 60
[2018-02-05] MEDS: (Novolog) Insulin Aspart, Recombinant 100 u/ml 10 ml vial SC SCH ×4 (08:46→22:53)
[2018-02-05] MEDS: Multiple Vitamins Tab PO SCH ×2 (10:39→10:58)
[2018-02-05] MEDS: Pantoprazole 40 mg EC Tab PO SCH ×2 (10:39→10:58)
[2018-02-05 10:53] LABS: ABG ALLEN TEST POS; ARTERIAL BLOOD GAS HCO3 35.3 mmol/L (21-28); ARTERIAL BLOOD GAS HEMOGLOBIN 6.8 g/dL (11.7-17.4); ARTERIAL BLOOD GAS O2 SAT 95.9 % (95-98); ARTERIAL BLOOD GAS PCO2 40 mm/Hg (35-45); ARTERIAL BLOOD GAS PH 7.57 (7.35-7.45); ARTERIAL BLOOD GAS PO2 65 mm/Hg (80-100); ARTERIAL BLOOD GAS TCO2 37.8 mmol/L (22-28)
[2018-02-05] MEDS: Metoprolol Succinate 50 mg XL Tab PO SCH (10:58)
[2018-02-05 12:06] LABS: HEMOGLOBIN 7.7 g/dL (11.0-16.0)
--- NOTE | 2018-02-05 12:09 | CP.PCM.PN ---
Subjective - Date & Time of Evaluation Date of Evaluation: 02/05/18 Time of Evaluation: 12:06 - Subjective Subjective: Noted FINANCIAL ASSISTANCE ADVISOR due to low O2 sat 87% and lethargy : Objective - Vital Signs/Intake and Output Vital Signs (last 24 hours): Temp Pulse Resp BP Pulse Ox 97.4 F L 85 18 121/66 99 02/05/18 07:20 02/05/18 07:28 02/05/18 07:20 02/05/18 10:55 02/05/18 07:20 Intake and Output: 02/05/18 02/05/18 06:59 18:59 Intake Total 700 Output Total 3925 Balance -3225 - Medications Medications: Current Medications Albuterol/Ipratropium (Duoneb 3 Mg/0.5 Mg (3 Ml) Ud) 3 ml INH RQ6 [facility] Last Admin: 02/05/18 07:38 Dose: 3 ml Amlodipine Besylate (Norvasc) 5 mg PO DAILY [facility] Last Admin: 02/05/18 10:58 Dose: Not Given Enoxaparin Sodium (Lovenox) 40 mg SC DAILY [facility] Last Admin: 02/02/18 10:55 Dose: 40 mg Furosemide (Lasix) 40 mg IVP BID [facility] Last Admin: 02/05/18 10:55 Dose: 40 mg Glimepiride (Amaryl) 2 mg PO BID [facility] Last Admin: 02/05/18 10:57 Dose: Not Given Hydralazine HCl (Apresoline) 50 mg PO BID [facility] Last Admin: 02/05/18 10:56 Dose: Not Given Cefepime HCl (Maxipime Iv 1 Gm Premix) 1 gm in 50 mls @ 100 mls/hr IVPB Q8H [facility] PRN Reason: Protocol Last Admin: 02/05/18 06:28 Dose: 100 mls/hr Ampicillin 2 gm/ Sodium (Chloride) 100 mls @ 50 mls/hr IVPB Q6 [facility] PRN Reason: Protocol Last Admin: 02/05/18 06:09 Dose: 50 mls/hr Albumin Human (Albumin Human 25% (12.5 Gm/50 Ml)) 50 mls @ 50 mls/hr IV Q8H [facility] Stop: 02/11/18 15:59 Last Admin: 02/05/18 06:14 Dose: 50 mls/hr Potassium Chloride (Potassium Chloride 20 Meq/100 Ml) 20 meq in 100 mls @ 50 mls/hr IVPB Q2 [facility] Stop: 02/05/18 17:59 Last Admin: 02/05/18 10:37 Dose: 50 mls/hr Insulin Aspart (Novolog) 0 unit SC ACHS [facility] PRN Reason: Protocol Last Admin: 02/05/18 08:46 Dose: Not Given Ketorolac Tromethamine (Toradol) 15 mg IVP Q8H PRN PRN Reason: Pain, severe (8-10) Lisinopril (Zestril) 20 mg PO DAILY [facility] Last Admin: 02/05/18 10:58 Dose: Not Given Methylprednisolone (Solu-Medrol) 40 mg IVP Q12H [facility] Last Admin: 02/05/18 06:28 Dose: 40 mg Metoprolol Succinate (Toprol Xl) 50 mg PO DAILY [facility] Last Admin: 02/05/18 10:58 Dose: Not Given Multivitamins (Hexavitamin) 1 tab PO DAILY [facility] Last Admin: 02/05/18 10:58 Dose: Not Given Pantoprazole Sodium (Protonix Ec Tab) 40 mg PO DAILY [facility] Last Admin: 02/05/18 10:58 Dose: Not Given Pioglitazone HCl (Actos) 30 mg PO QPM [facility] Last Admin: 02/04/18 17:59 Dose: 30 mg Fluticasone/Salmeterol (Advair Diskus 250/50) 1 puff INH RQ12 [facility] Last Admin: 02/05/18 07:53 Dose: Not Given Sodium Chloride ([place] Baby Saline 30 Ml) 0 ml CORAL Q4H PRN PRN Reason: Dry nasal passages Tiotropium [place] (Spiriva) 18 mcg INH RQ24 [facility] Last Admin: 02/05/18 07:53 Dose: Not Given - Labs Labs: 02/03/18 07:03 02/05/18 07:38 PT 15.9 SECONDS (9.7-12.2) H 01/28/18 10:14 INR 1.5 01/28/18 10:14 APTT 30 SECONDS (21-34) 01/28/18 10:14 Assessment and Plan - Assessment and Plan (Free Text) Assessment: 2D echo images viewed by me: LVH, EF 65%; Stage I diastolic dysfunction, consistent with normal left atrial pressure Lymphadenopathy: large cell lymphoma hx of breast CA Anemia Low albumin COPD HTN DM Plan 1. Continue lasix transition to PO once adequate volume status --> Replace hypokalemia, check serum magnesium keep >2.0 2. for uncontrolled BP suggest increase hydralazine to 100 TID, cont norvasc, BB and AILEEN-I if persistent >150's 3. Leg elevation and DVT prophylaxis, wound care nurse to apply UNNA boots or compression stockings 4. This is not due to CHF and probably a outflow problem from abdominal or venous pathology, given normal LVEF
[2018-02-05 12:15] LABS: MEAN CELL VOLUME 71.3 fL (81.0-99.0); MEAN CORPUSCULAR HEMOGLOBIN 23.1 pg (27.0-31.0); MEAN CORPUSCULAR HGB CONC 32.4 g/dL (33.0-37.0); MEAN PLATELET VOLUME 10.6 fL (7.2-11.7); RBC 3.33 Mil/uL (3.80-5.20); RED CELL DISTRIBUTION WIDTH 27.1 % (11.5-14.5); WHITE BLOOD COUNT 6.1 K/uL (4.8-10.8)
[2018-02-05 12:19] LABS: PLATELET COUNT 105 K/uL (130-400)
[2018-02-05 12:33] LABS: PROLACTIN 8.3 ng/mL (3.0-18.9)
[2018-02-05 12:40] LABS: LYMPH # 0.2 K/uL (1.0-4.3); NEUT # 5.9 K/uL (1.8-7.0)
[2018-02-05 12:44] LABS: ANISOCYTOSIS SLIGHT; BANDS 1 % (0-2); HYPOCHROMIC SLIGHT; LYMPHOCYTE 2 % (20-40); MONOCYTE 3 % (0-10); NEUTROPHIL 94 % (50-75); PLATELET ESTIMATE SLIGHTLY DECREASED (NORMAL); POIKILOCYTOSIS SLIGHT; TOTAL CELLS COUNTED 100
[2018-02-05 12:45] LABS: TARGET CELLS SLIGHT; TEARDROP CELLS SLIGHT
[2018-02-05] MEDS ORDERED: Vancomycin 1 GM in Sodium Chloride 0.9% 200 ML IVPB ONE (17:30)
--- NOTE | 2018-02-05 18:53 | CP.PCM.CON ---
<Ines Frias P - Last Filed: 02/05/18 20:04> History of Present Illness - History of Present Illness History of Present Illness: PGY-1 Critical Care Consult note. Patient is a 72 year old female with PMHx of HTN, DM, Anemia requiring multiple transfusions, L breast cancer, cervical cancer, and newly diagnosed lymphoma and COPD. She presented to the ED on 01/28/18 for increasing shortness of breath and was admitted for acute COPD exacerbation, CHF, lymphoma. Rapid Response called last night for low SpO2 87% and increasing lethargy. Critical care consulted for hypoxemia. Today, patient satting 89% on venturi mask. SpO2 improved to 96% on bipap. PMHx: HTN, DM, Anemia requiring multiple transfusions, L breast cancer, cervical cancer, and newly diagnosed lymphoma and COPD PSHx: Hysterectomy (1978), L mastectomy (1998), Meds: amlodipine 5mg PO daily, Prochlorperazine 5mg PO TID, Pioglitazone 30mg PO QPM, Omeprazole 40mg PO daily, hydralazine 25mg PO BID, Ferrous sulfate 325mg PO BID, Vitamin D 50,000units Qweek, albuterol 2 pull Q6H PRN, metoprolol succinate 50mg PO daily, lisinopril/HCTZ 20-12.5 mg PO daily, Glimepiride 2mg PO BID Allergies: [place] Review of Systems - Review of Systems Systems not reviewed;Unavailable: Acuity of Condition Past Patient History - Infectious Disease Hx of Infectious Diseases: None - Past Medical History & Family History Past Medical History?: Yes - Past Social History Smoking Status: Heavy Smoker > 10 Cigarettes Daily Chewing Tobacco Use: No Cigar Use: No - CARDIAC Hx Hypertension: Yes - PULMONARY Hx Respiratory Disorders: Yes (ABN CT SCAN) Hx Chronic Obstructive Pulmonary Disease (COPD): Yes - NEUROLOGICAL Hx Neurological Disorder: No - HEENT Hx HEENT Problems: No - RENAL Hx Chronic Kidney Disease: No - ENDOCRINE/METABOLIC Hx Diabetes Mellitus Type 2: Yes - HEMATOLOGICAL/ONCOLOGICAL Hx Anemia: Yes - INTEGUMENTARY Hx Dermatological Problems: No - MUSCULOSKELETAL/RHEUMATOLOGICAL Hx Osteoporosis: Yes - GASTROINTESTINAL Hx Gall Bladder Disease: Yes - GENITOURINARY/GYNECOLOGICAL Hx Genitourinary Disorders: Yes Hx Cervical Cancer: Yes (Cervical cancer in 1978) Hx Urinary Tract Infection: Yes (TREATED) - PSYCHIATRIC Hx Substance Use: No - SURGICAL HISTORY Hx Surgeries: Yes Hx Hysterectomy: Yes (40 yrs.ago) Hx Mastectomy: Yes (1998-surgery) Other/Comment: 1979-stomack/cervical - ANESTHESIA Hx Anesthesia: Yes Hx Anesthesia Reactions: No Hx Malignant Hyperthermia: No Meds Allergies/Adverse Reactions: Allergies Allergy/AdvReac Type Severity Reaction Status Date / Time strawberry Allergy Intermediate ITCHING Verified 01/28/18 09:03 - Medications Medications: Current Medications Albuterol/Ipratropium (Duoneb 3 Mg/0.5 Mg (3 Ml) Ud) 3 ml INH RQ6 [facility] Last Admin: 02/05/18 13:19 Dose: 3 ml Amlodipine Besylate (Norvasc) 5 mg PO DAILY [facility] Last Admin: 02/05/18 10:58 Dose: Not Given Enoxaparin Sodium (Lovenox) 40 mg SC DAILY [facility] Last Admin: 02/02/18 10:55 Dose: 40 mg Furosemide (Lasix) 40 mg IVP BID [facility] Last Admin: 02/05/18 18:09 Dose: 40 mg Glimepiride (Amaryl) 2 mg PO BID [facility] Last Admin: 02/05/18 18:08 Dose: 2 mg Hydralazine HCl (Apresoline) 50 mg PO BID [facility] Last Admin: 02/05/18 18:08 Dose: 50 mg Cefepime HCl (Maxipime Iv 1 Gm Premix) 1 gm in 50 mls @ 100 mls/hr IVPB Q8H [facility] PRN Reason: Protocol Last Admin: 02/05/18 14:53 Dose: 100 mls/hr Ampicillin 2 gm/ Sodium (Chloride) 100 mls @ 50 mls/hr IVPB Q6 [facility] PRN Reason: Protocol Last Admin: 02/05/18 18:08 Dose: 50 mls/hr Insulin Aspart (Novolog) 0 unit SC ACHS [facility] PRN Reason: Protocol Last Admin: 02/05/18 16:24 Dose: 3 units Methylprednisolone (Solu-Medrol) 40 mg IVP Q12H [facility] Last Admin: 02/05/18 18:09 Dose: 40 mg Metoprolol Succinate (Toprol Xl) 50 mg PO DAILY [facility] Last Admin: 02/05/18 10:58 Dose: Not Given Multivitamins (Hexavitamin) 1 tab PO DAILY [facility] Last Admin: 02/05/18 10:58 Dose: Not Given Pantoprazole Sodium (Protonix Ec Tab) 40 mg PO DAILY [facility] Last Admin: 02/05/18 10:58 Dose: Not Given Pioglitazone HCl (Actos) 30 mg PO QPM [facility] Last Admin: 02/04/18 17:59 Dose: 30 mg Fluticasone/Salmeterol (Advair Diskus 250/50) 1 puff INH RQ12 [facility] Last Admin: 02/05/18 07:53 Dose: Not Given Tiotropium [place] (Spiriva) 18 mcg INH RQ24 [facility] Last Admin: 02/05/18 07:53 Dose: Not Given Physical Exam - Head Exam Head Exam: ATRAUMATIC, NORMOCEPHALIC - Eye Exam Eye Exam: EOMI, PERRL - ENT Exam ENT Exam: Mucous Membranes Dry - Respiratory Exam Respiratory Exam: Decreased Breath Sounds - Cardiovascular Exam Cardiovascular Exam: REGULAR RHYTHM, +S1, +S2 - GI/Abdominal Exam GI & Abdominal Exam: Normal Bowel Sounds. absent: Tenderness - Neurological Exam Neurological exam: Alert - Skin Skin Exam: Normal Color, Warm Results - Vital Signs Recent Vital Signs: Last Vital Signs Temp 97.7 F 02/05/18 16:00 Pulse 92 H 02/05/18 18:20 Resp 30 H 02/05/18 18:20 BP 136/68 02/05/18 18:18 Pulse Ox 88 L 02/05/18 18:20 - Labs Result Diagrams: 02/05/18 11:50 02/05/18 07:38 Labs: Laboratory Results - last 24 hr 02/04/18 02/04/18 02/04/18 11:16 11:16 16:50 WBC RBC Hgb Hct MCV MCH MCHC RDW Plt Count MPV Neut % (Auto) Lymph % (Auto) [place] % (Auto) Eos % (Auto) Baso % (Auto) Neut # (Auto) Lymph # (Auto) [place] # (Auto) Eos # (Auto) Baso # (Auto) Neutrophils % (Manual) Band Neutrophils % Lymphocytes % (Manual) Monocytes % (Manual) Platelet Estimate Hypochromasia (manual) Poikilocytosis (manual Anisocytosis (manual) Target Cells Tear Drop Cells Puncture Site pCO2 pO2 HCO3 ABG pH ABG Total CO2 ABG O2 Saturation ABG Base Excess ABG Hemoglobin ABG Carboxyhemoglobin POC ABG HHb (Measured) ABG Methemoglobin Chepe Test A-a O2 Difference Respiratory Index Hgb O2 Saturation FiO2 Sodium Potassium Chloride Carbon Dioxide Anion Gap BUN Creatinine Est GFR ( Amer) Est GFR (Non-Af Amer) POC Glucose (mg/dL) 136 H Random Glucose Lactic Acid Calcium Magnesium NT-Pro-B Natriuret Pep Prolactin Vancomycin Trough Hepatitis A Ab Total Nonreactive Hepatitis C Antibody Non reactive Hep C Ab Signal/Cutoff 0.02 Blood Type Antibody Screen 02/04/18 02/04/18 02/05/18 21:21 23:37 06:34 WBC RBC Hgb Hct MCV MCH MCHC RDW Plt Count MPV Neut % (Auto) Lymph % (Auto) [place] % (Auto) Eos % (Auto) Baso % (Auto) Neut # (Auto) Lymph # (Auto) [place] # (Auto) Eos # (Auto) Baso # (Auto) Neutrophils % (Manual) Band Neutrophils % Lymphocytes % (Manual) Monocytes % (Manual) Platelet Estimate Hypochromasia (manual) Poikilocytosis (manual Anisocytosis (manual) Target Cells Tear Drop Cells Puncture Site pCO2 pO2 HCO3 ABG pH ABG Total CO2 ABG O2 Saturation ABG Base Excess ABG Hemoglobin ABG Carboxyhemoglobin POC ABG HHb (Measured) ABG Methemoglobin Chepe Test A-a O2 Difference Respiratory Index Hgb O2 Saturation FiO2 Sodium Potassium Chloride Carbon Dioxide Anion Gap BUN Creatinine Est GFR ( Amer) Est GFR (Non-Af Amer) POC Glucose (mg/dL) 185 H 228 H 197 H Random Glucose Lactic Acid Calcium Magnesium NT-Pro-B Natriuret Pep Prolactin Vancomycin Trough Hepatitis A Ab Total Hepatitis C Antibody Hep C Ab Signal/Cutoff Blood Type Antibody Screen 02/05/18 02/05/18 02/05/18 07:38 07:38 10:48 WBC RBC Hgb Hct MCV MCH MCHC RDW Plt Count MPV Neut % (Auto) Lymph % (Auto) [place] % (Auto) Eos % (Auto) Baso % (Auto) Neut # (Auto) Lymph # (Auto) [place] # (Auto) Eos # (Auto) Baso # (Auto) Neutrophils % (Manual) Band Neutrophils % Lymphocytes % (Manual) Monocytes % (Manual) Platelet Estimate Hypochromasia (manual) Poikilocytosis (manual Anisocytosis (manual) Target Cells Tear Drop Cells Puncture Site Lb pCO2 40 pO2 65 L HCO3 35.3 H ABG pH 7.57 H ABG Total CO2 37.8 H ABG O2 Saturation 95.9 ABG Base Excess 13.4 H ABG Hemoglobin 6.8 L ABG Carboxyhemoglobin 2.0 H POC ABG HHb (Measured) 4.0 ABG Methemoglobin 1.6 Chepe Test Pos A-a O2 Difference 242.0 Respiratory Index 3.7 Hgb O2 Saturation 92.4 L FiO2 50.0 Sodium 140 Potassium 2.8 L Chloride 94 L Carbon Dioxide 39 H Anion Gap 10 BUN 33 H Creatinine 0.7 Est GFR ( Amer) > 60 Est GFR (Non-Af Amer) > 60 POC Glucose (mg/dL) Random Glucose 183 H Lactic Acid Calcium 9.6 Magnesium 1.7 NT-Pro-B Natriuret Pep Prolactin Vancomycin Trough 14.3 H Hepatitis A Ab Total Hepatitis C Antibody Hep C Ab Signal/Cutoff Blood Type Antibody Screen 02/05/18 02/05/18 02/05/18 11:31 11:50 11:50 WBC 6.1 RBC 3.33 L Hgb 7.7 L Hct 23.8 L MCV 71.3 L MCH 23.1 L MCHC 32.4 L RDW 27.1 H Plt Count 105 L D MPV 10.6 Neut % (Auto) 97.0 H Lymph % (Auto) 3.0 L [place] % (Auto) 0.0 Eos % (Auto) 0.0 Baso % (Auto) 0.0 Neut # (Auto) 5.9 Lymph # (Auto) 0.2 L [place] # (Auto) 0.0 Eos # (Auto) 0.0 Baso # (Auto) 0.0 Neutrophils % (Manual) 94 H Band Neutrophils % 1 Lymphocytes % (Manual) 2 L Monocytes % (Manual) 3 Platelet Estimate Slightly decreased L Hypochromasia (manual) Slight Poikilocytosis (manual Slight Anisocytosis (manual) Slight Target Cells Slight Tear Drop Cells Slight Puncture Site pCO2 pO2 HCO3 ABG pH ABG Total CO2 ABG O2 Saturation ABG Base Excess ABG Hemoglobin ABG Carboxyhemoglobin POC ABG HHb (Measured) ABG Methemoglobin [place] Test A-a O2 Difference Respiratory Index Hgb O2 Saturation FiO2 Sodium Potassium Chloride Carbon Dioxide Anion Gap BUN Creatinine Est GFR ( Amer) Est GFR (Non-Af Amer) POC Glucose (mg/dL) 270 H Random Glucose Lactic Acid Calcium Magnesium NT-Pro-B Natriuret Pep 4710 H Prolactin 8.3 Vancomycin Trough Hepatitis A Ab Total Hepatitis C Antibody Hep C Ab Signal/Cutoff Blood Type Antibody Screen 02/05/18 02/05/18 02/05/18 11:52 14:53 16:16 WBC RBC Hgb Hct MCV MCH MCHC RDW Plt Count MPV Neut % (Auto) Lymph % (Auto) [place] % (Auto) Eos % (Auto) Baso % (Auto) Neut # (Auto) Lymph # (Auto) [place] # (Auto) Eos # (Auto) Baso # (Auto) Neutrophils % (Manual) Band Neutrophils % Lymphocytes % (Manual) Monocytes % (Manual) Platelet Estimate Hypochromasia (manual) Poikilocytosis (manual Anisocytosis (manual) Target Cells Tear Drop Cells Puncture Site pCO2 pO2 HCO3 ABG pH ABG Total CO2 ABG O2 Saturation ABG Base Excess ABG Hemoglobin ABG Carboxyhemoglobin POC ABG HHb (Measured) ABG Methemoglobin [place]pe Test A-a O2 Difference Respiratory Index Hgb O2 Saturation FiO2 Sodium Potassium Chloride Carbon Dioxide Anion Gap BUN Creatinine Est GFR ( Amer) Est GFR (Non-Af Amer) POC Glucose (mg/dL) 283 H Random Glucose Lactic Acid 1.6 Calcium Magnesium NT-Pro-B Natriuret Pep Prolactin Vancomycin Trough Hepatitis A Ab Total Hepatitis C Antibody Hep C Ab Signal/Cutoff Blood Type B POSITIVE Antibody Screen Negative Assessment & Plan - Assessment and Plan (Free Text) Plan: Patient is a 72 year old female with PMHx of HTN, DM, Anemia requiring multiple transfusions, L breast cancer, cervical cancer, and newly diagnosed lymphoma and COPD. She presented to the ED on 01/28/18 for increasing shortness of breath and was admitted for acute COPD exacerbation, CHF, lymphoma. Rapid Response called last night for low SpO2 87% and increasing lethargy. Critical care consulted for hypoxemia. Today, patient satting 89% on venturi mask. SpO2 improved to 96% on bipap. Will evaluate for PE. Neurological: Analgesia: Morpine 2mg IVP Q4 PRN Cardiovascular: Lasix 40mg SC daily Amlodipine 5mg PO daily Lasix 40mg IVP daily Hydralazine 25mg PO BID Metoprolol succinate 50mg PO daily Respiratory: ABG 02/05/18: pO 265, pH 7.57, pCO2 40, HCO3 35.3 Start patient on Bipap CXR 02/03/18: port-a-cath insertion. Cardiomegaly. interval increased pulmonary venous congestion. (see full report) Repeat chest XRAY VQ scan f/u Venous Doppler LE 02/02/18: No evidence of deep or superficial vein thrombosis of the RLE or LLE. Duonebs Methylprednisolone 40mg PO Daily Advair Spiriva Renal: BUN/Cr: 33/0.7 continue to monitor Hematology: H/H: 8.2/24.6 continue to monitor Ferrous Sulfate 325mg PO BID Gastrointestinal: Pantoprazole 40mg PO daily Endocrine: Glimepiride 2mg PO BID Pioglitazone 30mg PO QPM Insulin sliding scale ID Urine cx 02/01/18: enterococcus Blood cx negative Dr. Mccollum consulted. Ampicillin 2gm Q6 Cefepime 1gm Q8 Prophylaxis: Pantoprazole 40mg PO daily, Enoxaparin 40mg SC daily, multivitamins Transfer to ICU Discussed with Dr. Cisneros. <Emmett Cisneros - Last Filed: 02/06/18 21:21> Meds - Medications Medications: Current Medications Albuterol/Ipratropium (Duoneb 3 Mg/0.5 Mg (3 Ml) Ud) 3 ml INH RQ6 [facility] Last Admin: 02/06/18 14:00 Dose: Not Given Amlodipine Besylate (Norvasc) 10 mg PO DAILY [facility] Last Admin: 02/06/18 09:40 Dose: 10 mg Enoxaparin Sodium (Lovenox) 40 mg SC DAILY [facility] Last Admin: 02/02/18 10:55 Dose: 40 mg Furosemide (Lasix) 40 mg IVP BID [facility] Last Admin: 02/06/18 18:34 Dose: Not Given Glimepiride (Amaryl) 2 mg PO BID [facility] Last Admin: 02/06/18 18:34 Dose: Not Given Hydralazine HCl (Apresoline) 50 mg PO TID [facility] Last Admin: 02/06/18 18:34 Dose: Not Given Hydralazine HCl (Apresoline) 10 mg IVP Q6H PRN PRN Reason: Systolic Blood Pressure Cefepime HCl (Maxipime Iv 1 Gm Premix) 1 gm in 50 mls @ 100 mls/hr IVPB Q8H [facility] PRN Reason: Protocol Last Admin: 02/06/18 15:00 Dose: 100 mls/hr Ampicillin 2 gm/ Sodium (Chloride) 100 mls @ 50 mls/hr IVPB Q6 [facility] PRN Reason: Protocol Last Admin: 02/06/18 19:48 Dose: 50 mls/hr Nitroglycerin/Dextrose (Nitroglycerin 50 Mg/250 Ml D5w) 50 mg in 250 mls @ 1.5 mls/hr IV .Q24H [facility]; 5 MCG/MIN PRN Reason: Protocol Last Admin: 02/06/18 14:27 Dose: Not Given Dexmedetomidine HCl 200 mcg/ (Sodium Chloride) 50 mls @ 3.24 mls/hr IV TITR PRN ; Protocol; 0.2 MCG/KG/HR PRN Reason: Anxiety Last Admin: 02/06/18 14:58 Dose: 0.99 mcg/kg/hr, 16.07 mls/hr Insulin Aspart (Novolog) 0 unit SC ACHS [facility] PRN Reason: Protocol Last Admin: 02/06/18 18:35 Dose: Not Given Lisinopril (Zestril) 20 mg PO DAILY [facility] Last Admin: 02/06/18 09:40 Dose: 20 mg Methylprednisolone (Solu-Medrol) 40 mg IVP Q12H [facility] Last Admin: 02/06/18 18:35 Dose: Not Given Metoprolol Succinate (Toprol Xl) 50 mg PO DAILY [facility] Last Admin: 02/06/18 09:06 Dose: 50 mg Multivitamins (Hexavitamin) 1 tab PO DAILY [facility] Last Admin: 02/06/18 09:06 Dose: 1 tab Pantoprazole Sodium (Protonix Ec Tab) 40 mg PO DAILY [facility] Last Admin: 02/06/18 09:06 Dose: 40 mg Pioglitazone HCl (Actos) 30 mg PO QPM [facility] Last Admin: 02/06/18 18:34 Dose: Not Given Fluticasone/Salmeterol (Advair Diskus 250/50) 1 puff INH RQ12 [facility] Last Admin: 02/06/18 08:44 Dose: Not Given Tiotropium [place] (Spiriva) 18 mcg INH RQ24 [facility] Last Admin: 02/06/18 08:44 Dose: Not Given Results - Vital Signs Recent Vital Signs: Last Vital Signs Temp 98.5 F 02/06/18 16:00 Pulse 73 02/06/18 19:30 Resp 26 H 02/06/18 19:30 BP 86/40 L 02/06/18 19:18 Pulse Ox 100 02/06/18 19:30 - Labs Result Diagrams: 02/06/18 06:14 02/06/18 06:14 Labs: Laboratory Results - last 24 hr 02/05/18 02/05/18 02/05/18 21:24 22:49 22:49 WBC 5.7 RBC 3.18 L Hgb 7.3 L Hct 22.8 L MCV 71.7 L MCH 23.1 L MCHC 32.2 L RDW 27.5 H Plt Count 97 L MPV 10.4 Neut % (Auto) 85.7 H Lymph % (Auto) 8.3 L [place] % (Auto) 5.8 Eos % (Auto) 0.0 Baso % (Auto) 0.2 Neut # (Auto) 4.9 Lymph # (Auto) 0.5 L [place] # (Auto) 0.3 Eos # (Auto) 0.0 Baso # (Auto) 0.0 Neutrophils % (Manual) 82 H Band Neutrophils % 2 Lymphocytes % (Manual) 9 L Monocytes % (Manual) 7 Nucleated RBC % Platelet Estimate Slightly decreased L Hypochromasia (manual) Slight Poikilocytosis (manual Slight Anisocytosis (manual) Moderate Microcytosis (manual) Target Cells Ovalocytes Puncture Site pCO2 pO2 HCO3 ABG pH ABG Total CO2 ABG O2 Saturation ABG Base Excess ABG Hemoglobin ABG Carboxyhemoglobin POC ABG HHb (Measured) ABG Methemoglobin Chepe Test A-a O2 Difference Respiratory Index Hgb O2 Saturation Liter Flow FiO2 Sodium 139 Potassium 3.6 Chloride 94 L Carbon Dioxide 39 H Anion Gap 10 BUN 35 H Creatinine 0.7 Est GFR ( Amer) > 60 Est GFR (Non-Af Amer) > 60 POC Glucose (mg/dL) 255 H Random Glucose 263 H Calcium 9.9 Phosphorus Magnesium Total Bilirubin AST ALT Alkaline Phosphatase Troponin I < 0.0120 NT-Pro-B Natriuret Pep 3610 H Total Protein Albumin Globulin Albumin/Globulin Ratio 02/06/18 02/06/18 02/06/18 04:59 06:14 06:14 WBC 6.1 RBC 3.29 L Hgb 7.8 L Hct 23.8 L MCV 72.4 L MCH 23.6 L MCHC 32.5 L RDW 27.4 H Plt Count 85 L MPV 9.8 Neut % (Auto) 90.5 H Lymph % (Auto) 1.8 L [place] % (Auto) 7.0 Eos % (Auto) 0.1 Baso % (Auto) 0.6 Neut # (Auto) 5.6 Lymph # (Auto) 0.1 L [place] # (Auto) 0.4 Eos # (Auto) 0.0 Baso # (Auto) 0.0 Neutrophils % (Manual) 92 H Band Neutrophils % Lymphocytes % (Manual) 3 L Monocytes % (Manual) 7 Nucleated RBC % 1 H Platelet Estimate Decreased L Hypochromasia (manual) Slight Poikilocytosis (manual Slight Anisocytosis (manual) Slight Microcytosis (manual) Slight Target Cells Slight Ovalocytes Slight Puncture Site Rb pCO2 49 H pO2 102 H HCO3 38.7 H ABG pH 7.54 H ABG Total CO2 43.4 H ABG O2 Saturation 98.9 H ABG Base Excess 17.6 H ABG Hemoglobin 7.8 L ABG Carboxyhemoglobin 1.5 POC ABG HHb (Measured) 1.1 ABG Methemoglobin 1.3 Chepe Test Na A-a O2 Difference 550.0 Respiratory Index 5.4 Hgb O2 Saturation 96.1 Liter Flow 15.0 FiO2 100.0 Sodium 143 Potassium 3.6 Chloride 95 L Carbon Dioxide 41 H* Anion Gap 11 BUN 36 H Creatinine 0.6 L Est GFR ( Amer) > 60 Est GFR (Non-Af Amer) > 60 POC Glucose (mg/dL) Random Glucose 219 H Calcium 9.7 Phosphorus 2.7 Magnesium 2.0 Total Bilirubin 1.0 AST 20 ALT 42 Alkaline Phosphatase 105 Troponin I NT-Pro-B Natriuret Pep Total Protein 5.4 L Albumin 2.7 L Globulin 2.7 Albumin/Globulin Ratio 1.0 02/06/18 02/06/18 02/06/18 07:40 12:08 16:12 WBC RBC Hgb Hct MCV MCH MCHC RDW Plt Count MPV Neut % (Auto) Lymph % (Auto) [place] % (Auto) Eos % (Auto) Baso % (Auto) Neut # (Auto) Lymph # (Auto) [place] # (Auto) Eos # (Auto) Baso # (Auto) Neutrophils % (Manual) Band Neutrophils % Lymphocytes % (Manual) Monocytes % (Manual) Nucleated RBC % Platelet Estimate Hypochromasia (manual) Poikilocytosis (manual Anisocytosis (manual) Microcytosis (manual) Target Cells Ovalocytes Puncture Site pCO2 pO2 HCO3 ABG pH ABG Total CO2 ABG O2 Saturation ABG Base Excess ABG Hemoglobin ABG Carboxyhemoglobin POC ABG HHb (Measured) ABG Methemoglobin Chepe Test A-a O2 Difference Respiratory Index Hgb O2 Saturation Liter Flow FiO2 Sodium Potassium Chloride Carbon Dioxide Anion Gap BUN Creatinine Est GFR ( Amer) Est GFR (Non-Af Amer) POC Glucose (mg/dL) 192 H 293 H 275 H Random Glucose Calcium Phosphorus Magnesium Total Bilirubin AST ALT Alkaline Phosphatase Troponin I NT-Pro-B Natriuret Pep Total Protein Albumin Globulin Albumin/Globulin Ratio Assessment & Plan - Assessment and Plan (Free Text) Plan: Above patient seen and examined at bedside. Patient with hypoxic respiratory failure 2nd pulmonary congestion and COPD/Chronic diastolic heart failure -above resident documents my clinical findings. cc time 45 minutes - Date & Time Date: 02/05/18 Time: 19:00
--- NOTE | 2018-02-05 20:08 | CP.PCM.PN ---
Subjective - Date & Time of Evaluation Date of Evaluation: 02/05/18 Time of Evaluation: 09:15 - Subjective Subjective: clinically same Objective - Vital Signs/Intake and Output Vital Signs (last 24 hours): Temp Pulse Resp BP Pulse Ox 97.7 F 102 H 19 115/56 L 96 02/05/18 16:00 02/05/18 19:40 02/05/18 19:40 02/05/18 19:19 02/05/18 19:40 Intake and Output: 02/05/18 02/06/18 18:59 06:59 Intake Total 350 Output Total 250 Balance 100 - Medications Medications: Current Medications Albuterol/Ipratropium (Duoneb 3 Mg/0.5 Mg (3 Ml) Ud) 3 ml INH RQ6 [facility] Last Admin: 02/05/18 13:19 Dose: 3 ml Amlodipine Besylate (Norvasc) 5 mg PO DAILY [facility] Last Admin: 02/05/18 10:58 Dose: Not Given Enoxaparin Sodium (Lovenox) 40 mg SC DAILY [facility] Last Admin: 02/02/18 10:55 Dose: 40 mg Furosemide (Lasix) 40 mg IVP BID [facility] Last Admin: 02/05/18 18:09 Dose: 40 mg Glimepiride (Amaryl) 2 mg PO BID [facility] Last Admin: 02/05/18 18:08 Dose: 2 mg Hydralazine HCl (Apresoline) 50 mg PO BID [facility] Last Admin: 02/05/18 18:08 Dose: 50 mg Cefepime HCl (Maxipime Iv 1 Gm Premix) 1 gm in 50 mls @ 100 mls/hr IVPB Q8H [facility] PRN Reason: Protocol Last Admin: 02/05/18 14:53 Dose: 100 mls/hr Ampicillin 2 gm/ Sodium (Chloride) 100 mls @ 50 mls/hr IVPB Q6 [facility] PRN Reason: Protocol Last Admin: 02/05/18 18:08 Dose: 50 mls/hr Potassium Chloride (Potassium Chloride 20 Meq/100 Ml) 20 meq in 100 mls @ 50 mls/hr IVPB Q2H [facility] Stop: 02/06/18 01:59 Insulin Aspart (Novolog) 0 unit SC ACHS [facility] PRN Reason: Protocol Last Admin: 02/05/18 16:24 Dose: 3 units Methylprednisolone (Solu-Medrol) 40 mg IVP Q12H [facility] Last Admin: 02/05/18 18:09 Dose: 40 mg Metoprolol Succinate (Toprol Xl) 50 mg PO DAILY [facility] Last Admin: 02/05/18 10:58 Dose: Not Given Multivitamins (Hexavitamin) 1 tab PO DAILY [facility] Last Admin: 02/05/18 10:58 Dose: Not Given Pantoprazole Sodium (Protonix Ec Tab) 40 mg PO DAILY [facility] Last Admin: 02/05/18 10:58 Dose: Not Given Pioglitazone HCl (Actos) 30 mg PO QPM [facility] Last Admin: 02/05/18 18:00 Dose: 30 mg Fluticasone/Salmeterol (Advair Diskus 250/50) 1 puff INH RQ12 [facility] Last Admin: 02/05/18 07:53 Dose: Not Given Tiotropium Zoe (Spiriva) 18 mcg INH RQ24 [facility] Last Admin: 02/05/18 07:53 Dose: Not Given - Labs Labs: 02/05/18 11:50 02/05/18 07:38 PT 15.9 SECONDS (9.7-12.2) H 01/28/18 10:14 INR 1.5 01/28/18 10:14 APTT 30 SECONDS (21-34) 01/28/18 10:14 - Constitutional Appears: Well - Head Exam Head Exam: ATRAUMATIC, NORMAL INSPECTION, NORMOCEPHALIC - Eye Exam Eye Exam: EOMI, Normal appearance, PERRL Pupil Exam: NORMAL ACCOMODATION, PERRL - ENT Exam ENT Exam: Mucous Membranes Moist, Normal Exam - Neck Exam Neck Exam: Full ROM, Normal Inspection. absent: Lymphadenopathy - Respiratory Exam Respiratory Exam: Decreased Breath Sounds - Cardiovascular Exam Cardiovascular Exam: REGULAR RHYTHM, +S1, +S2 - GI/Abdominal Exam GI & Abdominal Exam: Soft, Diminished Bowel Sounds - Rectal Exam Rectal Exam: Deferred
[2018-02-05 23:06] LABS: BASO % 0.2 % (0.0-2.0); HEMOGLOBIN 7.3 g/dL (11.0-16.0); LYMPH # 0.5 K/uL (1.0-4.3); LYMPH % 8.3 % (20.0-40.0); MEAN CELL VOLUME 71.7 fL (81.0-99.0); MEAN CORPUSCULAR HEMOGLOBIN 23.1 pg (27.0-31.0); MEAN CORPUSCULAR HGB CONC 32.2 g/dL (33.0-37.0); MEAN PLATELET VOLUME 10.4 fL (7.2-11.7); MONO # 0.3 K/uL (0.0-0.8); MONO % 5.8 % (0.0-10.0); NEUT # 4.9 K/uL (1.8-7.0); NEUT % 85.7 % (50.0-75.0); NRBC % 0.5 % (0.0-2.0); PLATELET COUNT 97 K/uL (130-400); RBC 3.18 Mil/uL (3.80-5.20); RED CELL DISTRIBUTION WIDTH 27.5 % (11.5-14.5); WHITE BLOOD COUNT 5.7 K/uL (4.8-10.8)
[2018-02-05 23:19] LABS: B-TYPE NATRIURETIC PEPTIDE 3610 pg/mL (0-900)
[2018-02-05 23:20] LABS: BLOOD UREA NITROGEN 35 mg/dL (7-17); CALCIUM 9.9 mg/dl (8.6-10.4); GFR NON-AFRICAN AMERICAN > 60
[2018-02-05 23:36] LABS: ANISOCYTOSIS MODERATE; BANDS 2 % (0-2); LYMPHOCYTE 9 % (20-40); MONOCYTE 7 % (0-10); NEUTROPHIL 82 % (50-75); PLATELET ESTIMATE SLIGHTLY DECREASED (NORMAL); TOTAL CELLS COUNTED 100
[2018-02-05 23:37] LABS: HYPOCHROMIC SLIGHT; POIKILOCYTOSIS SLIGHT
--- NOTE | 2018-02-06 00:23 | PN ---
Copied To: Brodie Krueger MD Attending MD: Brodie Krueger MD DATE: 02/05/2018 FOLLOWUP CONSULTATION I had a long talk with two of her daughters and the patient. At this point, she is pretty much bedridden in terms of breathing. Her pO2 was 81 with oxygen. She has a lot of respiratory distress. She is on steroids but does not seem to be helping her. I have explained to both daughters again. No treatment, she is going to soon. With treatment, she can still soon, but also she will get lot of side effects from the chemotherapy including sepsis, low white count, low red count, anemia, bleeding, and . They understand that she is close to . I did get information from the head of pharmacy that we can start the CHOP, Cytoxan, Adriamycin and vincristine. We should give every three to four weeks of Rituxan; we can give her as inpatient. Also, I have explained this to the one of daughters that Hellen Sadler's daughter that I am giving relatively low dose, 50% doses, so the Cytoxan will be 600 mg, Adriamycin , vincristine 1.5 mg and will also add Neupogen 480 subcu daily for seven days afterwards and even with all these precautions, because she is so weak, the blood count is still really dropping, she sepsis from this. However, they feel that she will need as much of her choice. So at this point, I will order this and hopefully tomorrow in the morning we can start chemotherapy. Brodie Krueger MD
[2018-02-06] MEDS: AMPicillin 2 GM in Sodium Chloride 100 ML IVPB SCH ×4 (01:00→19:48)
[2018-02-06] MEDS: Albuterol-Ipratrop 3 mg / 0.5 (3 ml) UD INH SCH ×3 (01:59→14:00)
[2018-02-06 05:31] LABS: ARTERIAL BLOOD GAS HCO3 38.7 mmol/L (21-28); ARTERIAL BLOOD GAS HEMOGLOBIN 7.8 g/dL (11.7-17.4); ARTERIAL BLOOD GAS O2 SAT 98.9 % (95-98); ARTERIAL BLOOD GAS PCO2 49 mm/Hg (35-45); ARTERIAL BLOOD GAS PH 7.54 (7.35-7.45); ARTERIAL BLOOD GAS PO2 102 mm/Hg (80-100); ARTERIAL BLOOD GAS TCO2 43.4 mmol/L (22-28)
[2018-02-06] MEDS: Cefepime IV 1 gm in Dextrose 1 GM/50 ML BAG IVPB SCH ×3 (05:43→21:22)
[2018-02-06] MEDS: MethylPREDNISolone 40 mg Vial IVP SCH ×2 (06:21→18:35)
[2018-02-06 06:25] LABS: BASO % 0.6 % (0.0-2.0); EOS % 0.1 % (0.0-4.0); HEMOGLOBIN 7.8 g/dL (11.0-16.0); LYMPH # 0.1 K/uL (1.0-4.3); LYMPH % 1.8 % (20.0-40.0); MEAN CELL VOLUME 72.4 fL (81.0-99.0); MEAN CORPUSCULAR HEMOGLOBIN 23.6 pg (27.0-31.0); MEAN CORPUSCULAR HGB CONC 32.5 g/dL (33.0-37.0); MEAN PLATELET VOLUME 9.8 fL (7.2-11.7); MONO # 0.4 K/uL (0.0-0.8); NEUT # 5.6 K/uL (1.8-7.0); NEUT % 90.5 % (50.0-75.0); NRBC % 0.6 % (0.0-2.0); PLATELET COUNT 85 K/uL (130-400); RBC 3.29 Mil/uL (3.80-5.20); RED CELL DISTRIBUTION WIDTH 27.4 % (11.5-14.5); WHITE BLOOD COUNT 6.1 K/uL (4.8-10.8)
[2018-02-06 07:06] LABS: ALBUMIN 2.7 g/dL (3.5-5.0); ALT/SGPT 42 U/L (9-52); AST/SGOT 20 U/L (14-36); BLOOD UREA NITROGEN 36 mg/dL (7-17); CALCIUM 9.7 mg/dl (8.6-10.4); GFR NON-AFRICAN AMERICAN > 60
--- NOTE | 2018-02-06 07:11 | CP.CCUPN ---
<Ines Frias P - Last Filed: 02/06/18 14:33> CCU Subjective - Physician Review Subjective (Free Text): PGY-[address] note for Dr. Cisneros. Patient seen and examined at bedside. Patient saturating 94% on high flow oxygen. Blood pressure noted to be elevated, patient given hydralazine stat. Also noted elevated heart rate in the 110s and tachypneic. Given precedex. Patient could not tolerate V/Q scan yesterday due to agitation, will get CT angio today. 02/06/18 14:56 CCU Objective - Vital Signs / Intake & Output Vital Signs (Last 4 hours): Vital Signs Temp Pulse Resp BP Pulse Ox 02/06/18 04:00 98.2 F 94 L 02/06/18 03:55 26 H 02/06/18 03:18 99 H 26 H 165/78 H 94 L Intake and Output (Last 8hrs): Intake & Output 02/05/18 02/06/18 02/06/18 22:59 06:59 14:59 Intake Total 490 170 Output Total 250 Balance 240 170 Intake: Intake, IV Amount 350 150 Right Distal Port Port-A- 250 150 Cath Right Port-A-Cath 100 Oral 140 20 Output: Urine 250 Urethral (Soto) 250 Oral Regurgitation 0 Other: # Bowel Movements 0 - Physical Exam Head: Positive for: Atraumatic, Normocephalic Extroacular Muscles: Positive for: EOMI Mouth: Positive for: Moist Mucous Membranes Respiratory/Chest: Positive for: Decreased Breath Sounds Cardiovascular: Positive for: Normal S1, S2, Tachycardic, Other (portacath R chest) Abdomen: Positive for: Tenderness (right sided), Normal Bowel Sounds Lower Extremity: Positive for: Other (scds in place). Negative for: Edema Skin: Positive for: Warm, Dry Psychiatric: Positive for: Alert - Medications Active Medications: Active Medications Generic Name Dose Route Start Last Admin Trade Name Freq PRN Reason Stop Dose Admin Albuterol/Ipratropium 3 ml 01/28/18 20:00 02/06/18 01:59 Duoneb 3 Mg/0.5 Mg (3 Ml) Ud INH Not Given RQ6 [facility]ILLIE Amlodipine Besylate 5 mg 01/29/18 10:00 02/05/18 10:58 Norvasc PO Not Given DAILY MILLIE Enoxaparin Sodium 40 mg 01/28/18 14:45 02/02/18 10:55 Lovenox SC 40 mg DAILY MILLIE Administration Furosemide 40 mg 02/02/18 18:00 02/05/18 18:09 Lasix IVP 40 mg BID MILLIE Administration Glimepiride 2 mg 01/28/18 18:00 02/05/18 18:08 Amaryl PO 2 mg BID MILLIE Administration Hydralazine HCl 50 mg 02/02/18 17:28 02/05/18 18:08 Apresoline PO 50 mg BID MILLIE Administration Cefepime HCl 1 gm in 50 mls @ 100 mls/hr 02/02/18 14:00 02/06/18 05:43 Maxipime Iv 1 Gm Premix IVPB 100 mls/hr Q8H [facility] Administration Protocol Ampicillin 2 gm/ Sodium 100 mls @ 50 mls/hr 02/04/18 18:00 02/06/18 06:18 Chloride IVPB 50 mls/hr Q6 [facility] Administration Protocol Insulin Aspart 0 unit 01/29/18 07:30 02/05/18 22:53 Novolog SC Not Given ACHS [facility] Protocol Methylprednisolone 40 mg 02/03/18 06:00 02/06/18 06:21 Solu-Medrol IVP 40 mg Q12H [facility]IE Administration Metoprolol Succinate 50 mg 01/29/18 10:00 02/05/18 10:58 Toprol Xl PO Not Given DAILY [facility] Multivitamins 1 tab 01/29/18 10:00 02/05/18 10:58 Hexavitamin PO Not Given DAILY [facility] Pantoprazole Sodium 40 mg 01/29/18 10:00 02/05/18 10:58 Protonix Ec Tab PO Not Given DAILY [facility] Pioglitazone HCl 30 mg 01/28/18 18:00 02/05/18 18:00 Actos PO 30 mg QPM [facility] Administration Fluticasone/Salmeterol 1 puff 01/29/18 20:00 02/05/18 20:07 Advair Diskus 250/50 INH Not Given RQ12 [facility] Tiotropium [place] 18 mcg 01/30/18 08:00 02/05/18 07:53 Spiriva INH Not Given RQ24 MILLIE - Patient Studies Lab Studies: Microbiology Studies 02/01/18 02:03 Blood Culture - Final Blood NO GROWTH AFTER 5 DAYS Gram Stain - Final TEST NOT PERFORMED 02/01/18 02:03 Blood Culture - Final Blood NO GROWTH AFTER 5 DAYS Gram Stain - Final TEST NOT PERFORMED Lab Studies 02/06/18 02/06/18 02/06/18 Range/Units 06:14 06:14 04:59 WBC 6.1 (4.8-10.8) K/uL RBC 3.29 L (3.80-5.20) Mil/uL Hgb 7.8 L (11.0-16.0) g/dL Hct 23.8 L (34.0-47.0) % MCV 72.4 L (81.0-99.0) fL MCH 23.6 L (27.0-31.0) pg MCHC 32.5 L (33.0-37.0) g/dL RDW 27.4 H (11.5-14.5) % Plt Count 85 L (130-400) K/uL MPV 9.8 (7.2-11.7) fL Neut % (Auto) 90.5 H (50.0-75.0) % Lymph % (Auto) 1.8 L (20.0-40.0) % Chase % (Auto) 7.0 (0.0-10.0) % Eos % (Auto) 0.1 (0.0-4.0) % Baso % (Auto) 0.6 (0.0-2.0) % Neut # (Auto) 5.6 (1.8-7.0) K/uL Lymph # (Auto) 0.1 L (1.0-4.3) K/uL Chase # (Auto) 0.4 (0.0-0.8) K/uL Eos # (Auto) 0.0 (0.0-0.7) K/uL Baso # (Auto) 0.0 (0.0-0.2) K/uL Neutrophils % (Manual) (50-75) % Band Neutrophils % (0-2) % Lymphocytes % (Manual) (20-40) % Monocytes % (Manual) (0-10) % Platelet Estimate (NORMAL) Hypochromasia (manual) Poikilocytosis (manual Anisocytosis (manual) Target Cells Tear Drop Cells Puncture Site Rb pCO2 49 H (35-45) mm/Hg pO2 102 H (80-100) mm/Hg HCO3 38.7 H (21-28) mmol/L ABG pH 7.54 H (7.35-7.45) ABG Total CO2 43.4 H (22-28) mmol/L ABG O2 Saturation 98.9 H (95-98) % ABG Base Excess 17.6 H (-2.0-3.0) mmol/L ABG Hemoglobin 7.8 L (11.7-17.4) g/dL ABG Carboxyhemoglobin 1.5 (0.5-1.5) % POC ABG HHb (Measured) 1.1 (0.0-5.0) % ABG Methemoglobin 1.3 (0.0-3.0) % Chepe Test Na A-a O2 Difference 550.0 mm/Hg Respiratory Index 5.4 Hgb O2 Saturation 96.1 (95.0-98.0) % Liter Flow 15.0 FiO2 100.0 % Sodium 143 (132-148) mmol/L Potassium 3.6 (3.6-5.2) mmol/L Chloride 95 L (98-107) mmol/L Carbon Dioxide 41 H* (22-30) mmol/L Anion Gap 11 (10-20) BUN 36 H (7-17) mg/dL Creatinine 0.6 L (0.7-1.2) mg/dL Est GFR ( Amer) > 60 Est GFR (Non-Af Amer) > 60 POC Glucose (mg/dL) (65-110) mg/dL Random Glucose 219 H (65-105) mg/dL Lactic Acid (0.7-2.1) mmol/L Calcium 9.7 (8.6-10.4) mg/dl Phosphorus 2.7 (2.5-4.5) mg/dL Magnesium 2.0 (1.6-2.3) mg/dL Total Bilirubin 1.0 (0.2-1.3) mg/dL AST 20 (14-36) U/L ALT 42 (9-52) U/L Alkaline Phosphatase 105 (38-126) U/L Troponin I (0.00-0.120) ng/mL NT-Pro-B Natriuret Pep (0-900) pg/mL Total Protein 5.4 L (6.3-8.3) g/dL Albumin 2.7 L (3.5-5.0) g/dL Globulin 2.7 (2.2-3.9) gm/dL Albumin/Globulin Ratio 1.0 (1.0-2.1) Prolactin (3.0-18.9) ng/mL Vancomycin Trough (5.0-10.0) ug/mL Hepatitis C Antibody (Non Reactive) Hep C Ab Signal/Cutoff (<1.0) Blood Type Antibody Screen 02/05/18 02/05/18 02/05/18 Range/Units 22:49 22:49 21:24 WBC 5.7 (4.8-10.8) K/uL RBC 3.18 L (3.80-5.20) Mil/uL Hgb 7.3 L (11.0-16.0) g/dL Hct 22.8 L (34.0-47.0) % MCV 71.7 L (81.0-99.0) fL MCH 23.1 L (27.0-31.0) pg MCHC 32.2 L (33.0-37.0) g/dL RDW 27.5 H (11.5-14.5) % Plt Count 97 L (130-400) K/uL MPV 10.4 (7.2-11.7) fL Neut % (Auto) 85.7 H (50.0-75.0) % Lymph % (Auto) 8.3 L (20.0-40.0) % Chase % (Auto) 5.8 (0.0-10.0) % Eos % (Auto) 0.0 (0.0-4.0) % Baso % (Auto) 0.2 (0.0-2.0) % Neut # (Auto) 4.9 (1.8-7.0) K/uL Lymph # (Auto) 0.5 L (1.0-4.3) K/uL Chase # (Auto) 0.3 (0.0-0.8) K/uL Eos # (Auto) 0.0 (0.0-0.7) K/uL Baso # (Auto) 0.0 (0.0-0.2) K/uL Neutrophils % (Manual) 82 H (50-75) % Band Neutrophils % 2 (0-2) % Lymphocytes % (Manual) 9 L (20-40) % Monocytes % (Manual) 7 (0-10) % Platelet Estimate Slightly decreased L (NORMAL) Hypochromasia (manual) Slight Poikilocytosis (manual Slight Anisocytosis (manual) Moderate Target Cells Tear Drop Cells Puncture Site pCO2 (35-45) mm/Hg pO2 (80-100) mm/Hg HCO3 (21-28) mmol/L ABG pH (7.35-7.45) ABG Total CO2 (22-28) mmol/L ABG O2 Saturation (95-98) % ABG Base Excess (-2.0-3.0) mmol/L ABG Hemoglobin (11.7-17.4) g/dL ABG Carboxyhemoglobin (0.5-1.5) % POC ABG HHb (Measured) (0.0-5.0) % ABG Methemoglobin (0.0-3.0) % Chepe Test A-a O2 Difference mm/Hg Respiratory Index Hgb O2 Saturation (95.0-98.0) % Liter Flow FiO2 % Sodium 139 (132-148) mmol/L Potassium 3.6 (3.6-5.2) mmol/L Chloride 94 L (98-107) mmol/L Carbon Dioxide 39 H (22-30) mmol/L Anion Gap 10 (10-20) BUN 35 H (7-17) mg/dL Creatinine 0.7 (0.7-1.2) mg/dL Est GFR ( Amer) > 60 Est GFR (Non-Af Amer) > 60 POC Glucose (mg/dL) 255 H (65-110) mg/dL Random Glucose 263 H (65-105) mg/dL Lactic Acid (0.7-2.1) mmol/L Calcium 9.9 (8.6-10.4) mg/dl Phosphorus (2.5-4.5) mg/dL Magnesium (1.6-2.3) mg/dL Total Bilirubin (0.2-1.3) mg/dL AST (14-36) U/L ALT (9-52) U/L Alkaline Phosphatase (38-126) U/L Troponin I < 0.0120 (0.00-0.120) ng/mL NT-Pro-B Natriuret Pep 3610 H (0-900) pg/mL Total Protein (6.3-8.3) g/dL Albumin (3.5-5.0) g/dL Globulin (2.2-3.9) gm/dL Albumin/Globulin Ratio (1.0-2.1) Prolactin (3.0-18.9) ng/mL Vancomycin Trough (5.0-10.0) ug/mL Hepatitis C Antibody (Non Reactive) Hep C Ab Signal/Cutoff (<1.0) Blood Type Antibody Screen 02/05/18 02/05/18 02/05/18 Range/Units 16:16 14:53 11:52 WBC (4.8-10.8) K/uL RBC (3.80-5.20) Mil/uL Hgb (11.0-16.0) g/dL Hct (34.0-47.0) % MCV (81.0-99.0) fL MCH (27.0-31.0) pg MCHC (33.0-37.0) g/dL RDW (11.5-14.5) % Plt Count (130-400) K/uL MPV (7.2-11.7) fL Neut % (Auto) (50.0-75.0) % Lymph % (Auto) (20.0-40.0) % Chase % (Auto) (0.0-10.0) % Eos % (Auto) (0.0-4.0) % Baso % (Auto) (0.0-2.0) % Neut # (Auto) (1.8-7.0) K/uL Lymph # (Auto) (1.0-4.3) K/uL Chase # (Auto) (0.0-0.8) K/uL Eos # (Auto) (0.0-0.7) K/uL Baso # (Auto) (0.0-0.2) K/uL Neutrophils % (Manual) (50-75) % Band Neutrophils % (0-2) % Lymphocytes % (Manual) (20-40) % Monocytes % (Manual) (0-10) % Platelet Estimate (NORMAL) Hypochromasia (manual) Poikilocytosis (manual Anisocytosis (manual) Target Cells Tear Drop Cells Puncture Site pCO2 (35-45) mm/Hg pO2 (80-100) mm/Hg HCO3 (21-28) mmol/L ABG pH (7.35-7.45) ABG Total CO2 (22-28) mmol/L ABG O2 Saturation (95-98) % ABG Base Excess (-2.0-3.0) mmol/L ABG Hemoglobin (11.7-17.4) g/dL ABG Carboxyhemoglobin (0.5-1.5) % POC ABG HHb (Measured) (0.0-5.0) % ABG Methemoglobin (0.0-3.0) % Chepe Test A-a O2 Difference mm/Hg Respiratory Index Hgb O2 Saturation (95.0-98.0) % Liter Flow FiO2 % Sodium (132-148) mmol/L Potassium (3.6-5.2) mmol/L Chloride (98-107) mmol/L Carbon Dioxide (22-30) mmol/L Anion Gap (10-20) BUN (7-17) mg/dL Creatinine (0.7-1.2) mg/dL Est GFR ( Amer) Est GFR (Non-Af Amer) POC Glucose (mg/dL) 283 H (65-110) mg/dL Random Glucose (65-105) mg/dL Lactic Acid 1.6 (0.7-2.1) mmol/L Calcium (8.6-10.4) mg/dl Phosphorus (2.5-4.5) mg/dL Magnesium (1.6-2.3) mg/dL Total Bilirubin (0.2-1.3) mg/dL AST (14-36) U/L ALT (9-52) U/L Alkaline Phosphatase (38-126) U/L Troponin I (0.00-0.120) ng/mL NT-Pro-B Natriuret Pep (0-900) pg/mL Total Protein (6.3-8.3) g/dL Albumin (3.5-5.0) g/dL Globulin (2.2-3.9) gm/dL Albumin/Globulin Ratio (1.0-2.1) Prolactin (3.0-18.9) ng/mL Vancomycin Trough (5.0-10.0) ug/mL Hepatitis C Antibody (Non Reactive) Hep C Ab Signal/Cutoff (<1.0) Blood Type B POSITIVE Antibody Screen Negative 02/05/18 02/05/18 02/05/18 Range/Units 11:50 11:50 11:31 WBC 6.1 (4.8-10.8) K/uL RBC 3.33 L (3.80-5.20) Mil/uL Hgb 7.7 L (11.0-16.0) g/dL Hct 23.8 L (34.0-47.0) % MCV 71.3 L (81.0-99.0) fL MCH 23.1 L (27.0-31.0) pg MCHC 32.4 L (33.0-37.0) g/dL RDW 27.1 H (11.5-14.5) % Plt Count 105 L D (130-400) K/uL MPV 10.6 (7.2-11.7) fL Neut % (Auto) 97.0 H (50.0-75.0) % Lymph % (Auto) 3.0 L (20.0-40.0) % Chase % (Auto) 0.0 (0.0-10.0) % Eos % (Auto) 0.0 (0.0-4.0) % Baso % (Auto) 0.0 (0.0-2.0) % Neut # (Auto) 5.9 (1.8-7.0) K/uL Lymph # (Auto) 0.2 L (1.0-4.3) K/uL Chase # (Auto) 0.0 (0.0-0.8) K/uL Eos # (Auto) 0.0 (0.0-0.7) K/uL Baso # (Auto) 0.0 (0.0-0.2) K/uL Neutrophils % (Manual) 94 H (50-75) % Band Neutrophils % 1 (0-2) % Lymphocytes % (Manual) 2 L (20-40) % Monocytes % (Manual) 3 (0-10) % Platelet Estimate Slightly decreased L (NORMAL) Hypochromasia (manual) Slight Poikilocytosis (manual Slight Anisocytosis (manual) Slight Target Cells Slight Tear Drop Cells Slight Puncture Site pCO2 (35-45) mm/Hg pO2 (80-100) mm/Hg HCO3 (21-28) mmol/L ABG pH (7.35-7.45) ABG Total CO2 (22-28) mmol/L ABG O2 Saturation (95-98) % ABG Base Excess (-2.0-3.0) mmol/L ABG Hemoglobin (11.7-17.4) g/dL ABG Carboxyhemoglobin (0.5-1.5) % POC ABG HHb (Measured) (0.0-5.0) % ABG Methemoglobin (0.0-3.0) % Chepe Test A-a O2 Difference mm/Hg Respiratory Index Hgb O2 Saturation (95.0-98.0) % Liter Flow FiO2 % Sodium (132-148) mmol/L Potassium (3.6-5.2) mmol/L Chloride (98-107) mmol/L Carbon Dioxide (22-30) mmol/L Anion Gap (10-20) BUN (7-17) mg/dL Creatinine (0.7-1.2) mg/dL Est GFR ( Amer) Est GFR (Non-Af Amer) POC Glucose (mg/dL) 270 H (65-110) mg/dL Random Glucose (65-105) mg/dL Lactic Acid (0.7-2.1) mmol/L Calcium (8.6-10.4) mg/dl Phosphorus (2.5-4.5) mg/dL Magnesium (1.6-2.3) mg/dL Total Bilirubin (0.2-1.3) mg/dL AST (14-36) U/L ALT (9-52) U/L Alkaline Phosphatase (38-126) U/L Troponin I (0.00-0.120) ng/mL NT-Pro-B Natriuret Pep 4710 H (0-900) pg/mL Total Protein (6.3-8.3) g/dL Albumin (3.5-5.0) g/dL Globulin (2.2-3.9) gm/dL Albumin/Globulin Ratio (1.0-2.1) Prolactin 8.3 (3.0-18.9) ng/mL Vancomycin Trough (5.0-10.0) ug/mL Hepatitis C Antibody (Non Reactive) Hep C Ab Signal/Cutoff (<1.0) Blood Type Antibody Screen 08/02/05/18 02/05/18 Range/Units 10:48 07:38 07:38 WBC (4.8-10.8) K/uL RBC (3.80-5.20) Mil/uL Hgb (11.0-16.0) g/dL Hct (34.0-47.0) % MCV (81.0-99.0) fL MCH (27.0-31.0) pg MCHC (33.0-37.0) g/dL RDW (11.5-14.5) % Plt Count (130-400) K/uL MPV (7.2-11.7) fL Neut % (Auto) (50.0-75.0) % Lymph % (Auto) (20.0-40.0) % Chase % (Auto) (0.0-10.0) % Eos % (Auto) (0.0-4.0) % Baso % (Auto) (0.0-2.0) % Neut # (Auto) (1.8-7.0) K/uL Lymph # (Auto) (1.0-4.3) K/uL Chase # (Auto) (0.0-0.8) K/uL Eos # (Auto) (0.0-0.7) K/uL Baso # (Auto) (0.0-0.2) K/uL Neutrophils % (Manual) (50-75) % Band Neutrophils % (0-2) % Lymphocytes % (Manual) (20-40) % Monocytes % (Manual) (0-10) % Platelet Estimate (NORMAL) Hypochromasia (manual) Poikilocytosis (manual Anisocytosis (manual) Target Cells Tear Drop Cells Puncture Site Lb pCO2 40 (35-45) mm/Hg pO2 65 L (80-100) mm/Hg HCO3 35.3 H (21-28) mmol/L ABG pH 7.57 H (7.35-7.45) ABG Total CO2 37.8 H (22-28) mmol/L ABG O2 Saturation 95.9 (95-98) % ABG Base Excess 13.4 H (-2.0-3.0) mmol/L ABG Hemoglobin 6.8 L (11.7-17.4) g/dL ABG Carboxyhemoglobin 2.0 H (0.5-1.5) % POC ABG HHb (Measured) 4.0 (0.0-5.0) % ABG Methemoglobin 1.6 (0.0-3.0) % Chepe Test Pos A-a O2 Difference 242.0 mm/Hg Respiratory Index 3.7 Hgb O2 Saturation 92.4 L (95.0-98.0) % Liter Flow FiO2 50.0 % Sodium 140 (132-148) mmol/L Potassium 2.8 L (3.6-5.2) mmol/L Chloride 94 L (98-107) mmol/L Carbon Dioxide 39 H (22-30) mmol/L Anion Gap 10 (10-20) BUN 33 H (7-17) mg/dL Creatinine 0.7 (0.7-1.2) mg/dL Est GFR ( Amer) > 60 Est GFR (Non-Af Amer) > 60 POC Glucose (mg/dL) (65-110) mg/dL Random Glucose 183 H (65-105) mg/dL Lactic Acid (0.7-2.1) mmol/L Calcium 9.6 (8.6-10.4) mg/dl Phosphorus (2.5-4.5) mg/dL Magnesium 1.7 (1.6-2.3) mg/dL Total Bilirubin (0.2-1.3) mg/dL AST (14-36) U/L ALT (9-52) U/L Alkaline Phosphatase (38-126) U/L Troponin I (0.00-0.120) ng/mL NT-Pro-B Natriuret Pep (0-900) pg/mL Total Protein (6.3-8.3) g/dL Albumin (3.5-5.0) g/dL Globulin (2.2-3.9) gm/dL Albumin/Globulin Ratio (1.0-2.1) Prolactin (3.0-18.9) ng/mL Vancomycin Trough 14.3 H (5.0-10.0) ug/mL Hepatitis C Antibody (Non Reactive) Hep C Ab Signal/Cutoff (<1.0) Blood Type Antibody Screen 02/05/18 02/04/18 02/04/18 Range/Units 06:34 23:37 11:16 WBC (4.8-10.8) K/uL RBC (3.80-5.20) Mil/uL Hgb (11.0-16.0) g/dL Hct (34.0-47.0) % MCV (81.0-99.0) fL MCH (27.0-31.0) pg MCHC (33.0-37.0) g/dL RDW (11.5-14.5) % Plt Count (130-400) K/uL MPV (7.2-11.7) fL Neut % (Auto) (50.0-75.0) % Lymph % (Auto) (20.0-40.0) % Chase % (Auto) (0.0-10.0) % Eos % (Auto) (0.0-4.0) % Baso % (Auto) (0.0-2.0) % Neut # (Auto) (1.8-7.0) K/uL Lymph # (Auto) (1.0-4.3) K/uL Chase # (Auto) (0.0-0.8) K/uL Eos # (Auto) (0.0-0.7) K/uL Baso # (Auto) (0.0-0.2) K/uL Neutrophils % (Manual) (50-75) % Band Neutrophils % (0-2) % Lymphocytes % (Manual) (20-40) % Monocytes % (Manual) (0-10) % Platelet Estimate (NORMAL) Hypochromasia (manual) Poikilocytosis (manual Anisocytosis (manual) Target Cells Tear Drop Cells Puncture Site pCO2 (35-45) mm/Hg pO2 (80-100) mm/Hg HCO3 (21-28) mmol/L ABG pH (7.35-7.45) ABG Total CO2 (22-28) mmol/L ABG O2 Saturation (95-98) % ABG Base Excess (-2.0-3.0) mmol/L ABG Hemoglobin (11.7-17.4) g/dL ABG Carboxyhemoglobin (0.5-1.5) % POC ABG HHb (Measured) (0.0-5.0) % ABG Methemoglobin (0.0-3.0) % Chepe Test A-a O2 Difference mm/Hg Respiratory Index Hgb O2 Saturation (95.0-98.0) % Liter Flow FiO2 % Sodium (132-148) mmol/L Potassium (3.6-5.2) mmol/L Chloride (98-107) mmol/L Carbon Dioxide (22-30) mmol/L Anion Gap (10-20) BUN (7-17) mg/dL Creatinine (0.7-1.2) mg/dL Est GFR ( Amer) Est GFR (Non-Af Amer) POC Glucose (mg/dL) 197 H 228 H (65-110) mg/dL Random Glucose (65-105) mg/dL Lactic Acid (0.7-2.1) mmol/L Calcium (8.6-10.4) mg/dl Phosphorus (2.5-4.5) mg/dL Magnesium (1.6-2.3) mg/dL Total Bilirubin (0.2-1.3) mg/dL AST (14-36) U/L ALT (9-52) U/L Alkaline Phosphatase (38-126) U/L Troponin I (0.00-0.120) ng/mL NT-Pro-B Natriuret Pep (0-900) pg/mL Total Protein (6.3-8.3) g/dL Albumin (3.5-5.0) g/dL Globulin (2.2-3.9) gm/dL Albumin/Globulin Ratio (1.0-2.1) Prolactin (3.0-18.9) ng/mL Vancomycin Trough (5.0-10.0) ug/mL Hepatitis C Antibody Non reactive (Non Reactive) Hep C Ab Signal/Cutoff 0.02 (<1.0) Blood Type Antibody Screen Laboratory Results - last 24 hr 02/04/18 02/04/18 02/05/18 11:16 23:37 06:34 WBC RBC Hgb Hct MCV MCH MCHC RDW Plt Count MPV Neut % (Auto) Lymph % (Auto) Chase % (Auto) Eos % (Auto) Baso % (Auto) Neut # (Auto) Lymph # (Auto) Chase # (Auto) Eos # (Auto) Baso # (Auto) Neutrophils % (Manual) Band Neutrophils % Lymphocytes % (Manual) Monocytes % (Manual) Platelet Estimate Hypochromasia (manual) Poikilocytosis (manual Anisocytosis (manual) Target Cells Tear Drop Cells Puncture Site pCO2 pO2 HCO3 ABG pH ABG Total CO2 ABG O2 Saturation ABG Base Excess ABG Hemoglobin ABG Carboxyhemoglobin POC ABG HHb (Measured) ABG Methemoglobin Chepe Test A-a O2 Difference Respiratory Index Hgb O2 Saturation Liter Flow FiO2 Sodium Potassium Chloride Carbon Dioxide Anion Gap BUN Creatinine Est GFR ( Amer) Est GFR (Non-Af Amer) POC Glucose (mg/dL) 228 H 197 H Random Glucose Lactic Acid Calcium Phosphorus Magnesium Total Bilirubin AST ALT Alkaline Phosphatase Troponin I NT-Pro-B Natriuret Pep Total Protein Albumin Globulin Albumin/Globulin Ratio Prolactin Vancomycin Trough Hepatitis C Antibody Non reactive Hep C Ab Signal/Cutoff 0.02 Blood Type Antibody Screen 02/05/18 02/05/18 02/05/18 07:38 07:38 10:48 WBC RBC Hgb Hct MCV MCH MCHC RDW Plt Count MPV Neut % (Auto) Lymph % (Auto) Chase % (Auto) Eos % (Auto) Baso % (Auto) Neut # (Auto) Lymph # (Auto) Chase # (Auto) Eos # (Auto) Baso # (Auto) Neutrophils % (Manual) Band Neutrophils % Lymphocytes % (Manual) Monocytes % (Manual) Platelet Estimate Hypochromasia (manual) Poikilocytosis (manual Anisocytosis (manual) Target Cells Tear Drop Cells Puncture Site Lb pCO2 40 pO2 65 L HCO3 35.3 H ABG pH 7.57 H ABG Total CO2 37.8 H ABG O2 Saturation 95.9 ABG Base Excess 13.4 H ABG Hemoglobin 6.8 L ABG Carboxyhemoglobin 2.0 H POC ABG HHb (Measured) 4.0 ABG Methemoglobin 1.6 Chepe Test Pos A-a O2 Difference 242.0 Respiratory Index 3.7 Hgb O2 Saturation 92.4 L Liter Flow FiO2 50.0 Sodium 140 Potassium 2.8 L Chloride 94 L Carbon Dioxide 39 H Anion Gap 10 BUN 33 H Creatinine 0.7 Est GFR ( Amer) > 60 Est GFR (Non-Af Amer) > 60 POC Glucose (mg/dL) Random Glucose 183 H Lactic Acid Calcium 9.6 Phosphorus Magnesium 1.7 Total Bilirubin AST ALT Alkaline Phosphatase Troponin I NT-Pro-B Natriuret Pep Total Protein Albumin Globulin Albumin/Globulin Ratio Prolactin Vancomycin Trough 14.3 H Hepatitis C Antibody Hep C Ab Signal/Cutoff Blood Type Antibody Screen 02/05/18 02/05/18 02/05/18 11:31 11:50 11:50 WBC 6.1 RBC 3.33 L Hgb 7.7 L Hct 23.8 L MCV 71.3 L MCH 23.1 L MCHC 32.4 L RDW 27.1 H Plt Count 105 L D MPV 10.6 Neut % (Auto) 97.0 H Lymph % (Auto) 3.0 L Chase % (Auto) 0.0 Eos % (Auto) 0.0 Baso % (Auto) 0.0 Neut # (Auto) 5.9 Lymph # (Auto) 0.2 L Chase # (Auto) 0.0 Eos # (Auto) 0.0 Baso # (Auto) 0.0 Neutrophils % (Manual) 94 H Band Neutrophils % 1 Lymphocytes % (Manual) 2 L Monocytes % (Manual) 3 Platelet Estimate Slightly decreased L Hypochromasia (manual) Slight Poikilocytosis (manual Slight Anisocytosis (manual) Slight Target Cells Slight Tear Drop Cells Slight Puncture Site pCO2 pO2 HCO3 ABG pH ABG Total CO2 ABG O2 Saturation ABG Base Excess ABG Hemoglobin ABG Carboxyhemoglobin POC ABG HHb (Measured) ABG Methemoglobin Chepe Test A-a O2 Difference Respiratory Index Hgb O2 Saturation Liter Flow FiO2 Sodium Potassium Chloride Carbon Dioxide Anion Gap BUN Creatinine Est GFR ( Amer) Est GFR (Non-Af Amer) POC Glucose (mg/dL) 270 H Random Glucose Lactic Acid Calcium Phosphorus Magnesium Total Bilirubin AST ALT Alkaline Phosphatase Troponin I NT-Pro-B Natriuret Pep 4710 H Total Protein Albumin Globulin Albumin/Globulin Ratio Prolactin 8.3 Vancomycin Trough Hepatitis C Antibody Hep C Ab Signal/Cutoff Blood Type Antibody Screen 02/05/18 02/05/18 02/05/18 11:52 14:53 16:16 WBC RBC Hgb Hct MCV MCH MCHC RDW Plt Count MPV Neut % (Auto) Lymph % (Auto) Chase % (Auto) Eos % (Auto) Baso % (Auto) Neut # (Auto) Lymph # (Auto) Chase # (Auto) Eos # (Auto) Baso # (Auto) Neutrophils % (Manual) Band Neutrophils % Lymphocytes % (Manual) Monocytes % (Manual) Platelet Estimate Hypochromasia (manual) Poikilocytosis (manual Anisocytosis (manual) Target Cells Tear Drop Cells Puncture Site pCO2 pO2 HCO3 ABG pH ABG Total CO2 ABG O2 Saturation ABG Base Excess ABG Hemoglobin ABG Carboxyhemoglobin POC ABG HHb (Measured) ABG Methemoglobin Chepe Test A-a O2 Difference Respiratory Index Hgb O2 Saturation Liter Flow FiO2 Sodium Potassium Chloride Carbon Dioxide Anion Gap BUN Creatinine Est GFR ( Amer) Est GFR (Non-Af Amer) POC Glucose (mg/dL) 283 H Random Glucose Lactic Acid 1.6 Calcium Phosphorus Magnesium Total Bilirubin AST ALT Alkaline Phosphatase Troponin I NT-Pro-B Natriuret Pep Total Protein Albumin Globulin Albumin/Globulin Ratio Prolactin Vancomycin Trough Hepatitis C Antibody Hep C Ab Signal/Cutoff Blood Type B POSITIVE Antibody Screen Negative 02/05/18 02/05/18 02/05/18 21:24 22:49 22:49 WBC 5.7 RBC 3.18 L Hgb 7.3 L Hct 22.8 L MCV 71.7 L MCH 23.1 L MCHC 32.2 L RDW 27.5 H Plt Count 97 L MPV 10.4 Neut % (Auto) 85.7 H Lymph % (Auto) 8.3 L Chase % (Auto) 5.8 Eos % (Auto) 0.0 Baso % (Auto) 0.2 Neut # (Auto) 4.9 Lymph # (Auto) 0.5 L Chase # (Auto) 0.3 Eos # (Auto) 0.0 Baso # (Auto) 0.0 Neutrophils % (Manual) 82 H Band Neutrophils % 2 Lymphocytes % (Manual) 9 L Monocytes % (Manual) 7 Platelet Estimate Slightly decreased L Hypochromasia (manual) Slight Poikilocytosis (manual Slight Anisocytosis (manual) Moderate Target Cells Tear Drop Cells Puncture Site pCO2 pO2 HCO3 ABG pH ABG Total CO2 ABG O2 Saturation ABG Base Excess ABG Hemoglobin ABG Carboxyhemoglobin POC ABG HHb (Measured) ABG Methemoglobin Chepe Test A-a O2 Difference Respiratory Index Hgb O2 Saturation Liter Flow FiO2 Sodium 139 Potassium 3.6 Chloride 94 L Carbon Dioxide 39 H Anion Gap 10 BUN 35 H Creatinine 0.7 Est GFR ( Amer) > 60 Est GFR (Non-Af Amer) > 60 POC Glucose (mg/dL) 255 H Random Glucose 263 H Lactic Acid Calcium 9.9 Phosphorus Magnesium Total Bilirubin AST ALT Alkaline Phosphatase Troponin I < 0.0120 NT-Pro-B Natriuret Pep 3610 H Total Protein Albumin Globulin Albumin/Globulin Ratio Prolactin Vancomycin Trough Hepatitis C Antibody Hep C Ab Signal/Cutoff Blood Type Antibody Screen 02/06/18 02/06/18 02/06/18 04:59 06:14 06:14 WBC 6.1 RBC 3.29 L Hgb 7.8 L Hct 23.8 L MCV 72.4 L MCH 23.6 L MCHC 32.5 L RDW 27.4 H Plt Count 85 L MPV 9.8 Neut % (Auto) 90.5 H Lymph % (Auto) 1.8 L Chase % (Auto) 7.0 Eos % (Auto) 0.1 Baso % (Auto) 0.6 Neut # (Auto) 5.6 Lymph # (Auto) 0.1 L Chase # (Auto) 0.4 Eos # (Auto) 0.0 Baso # (Auto) 0.0 Neutrophils % (Manual) Band Neutrophils % Lymphocytes % (Manual) Monocytes % (Manual) Platelet Estimate Hypochromasia (manual) Poikilocytosis (manual Anisocytosis (manual) Target Cells Tear Drop Cells Puncture Site Rb pCO2 49 H pO2 102 H HCO3 38.7 H ABG pH 7.54 H ABG Total CO2 43.4 H ABG O2 Saturation 98.9 H ABG Base Excess 17.6 H ABG Hemoglobin 7.8 L ABG Carboxyhemoglobin 1.5 POC ABG HHb (Measured) 1.1 ABG Methemoglobin 1.3 Chepe Test Na A-a O2 Difference 550.0 Respiratory Index 5.4 Hgb O2 Saturation 96.1 Liter Flow 15.0 FiO2 100.0 Sodium 143 Potassium 3.6 Chloride 95 L Carbon Dioxide 41 H* Anion Gap 11 BUN 36 H Creatinine 0.6 L Est GFR ( Amer) > 60 Est GFR (Non-Af Amer) > 60 POC Glucose (mg/dL) Random Glucose 219 H Lactic Acid Calcium 9.7 Phosphorus 2.7 Magnesium 2.0 Total Bilirubin 1.0 AST 20 ALT 42 Alkaline Phosphatase 105 Troponin I NT-Pro-B Natriuret Pep Total Protein 5.4 L Albumin 2.7 L Globulin 2.7 Albumin/Globulin Ratio 1.0 Prolactin Vancomycin Trough Hepatitis C Antibody Hep C Ab Signal/Cutoff Blood Type Antibody Screen Fingerstick Blood Sugar Results: 255 Review of Systems - Review of Systems Systems not reviewed;Unavailable: Acuity of Condition Critical Care Progress Note - Nutrition Nutrition: Nutrition Category Date Time Status Diabetic [Consistent Carbohydrate] [DIET] Diets 02/03/18 Dinner Active Assessment/Plan - Assessment and Plan (Free Text) Plan: Patient is a 72 year old female with PMHx of HTN, DM, Anemia requiring multiple transfusions, L breast cancer, cervical cancer, and newly diagnosed lymphoma and COPD. She presented to the ED on 01/28/18 for increasing shortness of breath and was admitted for acute COPD exacerbation, CHF, lymphoma. Rapid Response called last night for low SpO2 87% and increasing lethargy. Critical care consulted for hypoxemia. Today, patient satting 89% on venturi mask. SpO2 improved to 96% on bipap. Will evaluate for PE. 02/06/18 Blood pressure noted to be elevated, patient given hydralazine stat. increaded hydralazine to TID, amplodepine to 10mg , and added lisinopril home me. Also noted to be anxious, elevated heart rate in the 110s and tachypneic. Given precedex drip. Neuro: - patient awake but appears agitated at times - Precedex drip Cardiovascular: Blood pressure to 180s/90s Amlodipine 10mg po daily Lasix 40mg IVP daily Hydralazine 50mg TID and 10mg IVP q6h prn Lisinopril 20mg po daily Metoprolol succinate 50mg po daily Nitroglycerin IV in d5w Venous Doppler LE 02/02/18: No evidence of deep or superficial vein thrombosis of the RLE or LLE.Venous Doppler LE 02/02/18: No evidence of deep or superficial vein thrombosis of the RLE or LLE. Respiratory: - ABG 02/06/18: pCO2 49, pO2 102, HCO3 38.7, pH 7.54 - CXR 02/06/18: Mild pulmonary venous congestion. No focal consolidation. paste doppler results - V/Q unable to be performed last night due to patient agitation. CT chest angiogram ordered. - DuoNeb - Solu-medrol 40mg ivp q12 - Advair Diskus - Spiriva Renal: - BUN/Cr 36/0.6 - continue to monitor Hematology: - H/H 7.8/23.8 - continue to monitor Gastrointestinal: - GI prophylaxis: Protonix 40mg po daily Infectious disease: - afebrile - WBC 6.1 (normal) - urine cx 02/01/19: enterococcus faecalis - blood cx negative - Ampicillin 2 gm q6 - Cefepime 1gm q8 - ID Dr. Mccollum consulted. Endocrine: - Glimepiride 2mg PO bid - ISS low dose - Pioglitazone 30mg po QPM Prophylaxis: - VTE: Lovenox - GI: Protonix 40mg po daily - Hexavitamin Prophylaxis: Pantoprazole 40mg PO daily, Enoxaparin 40mg SC daily, multivitamins Dispo: Continue ICU management. Discussed with Dr. Cisneros. <Emmett Cisneros - Last Filed: 02/06/18 21:25> CCU Objective - Vital Signs / Intake & Output Vital Signs (Last 4 hours): Vital Signs Pulse Resp BP Pulse Ox 02/06/18 19:30 73 26 H 100 02/06/18 19:18 84 22 86/40 L 98 02/06/18 19:00 73 24 99 02/06/18 18:30 72 21 100 02/06/18 18:18 77 26 H 112/51 L 98 02/06/18 18:00 80 33 H 100 02/06/18 17:30 73 27 H 99 Intake and Output (Last 8hrs): Intake & Output 02/06/18 02/06/18 02/06/18 06:59 14:59 22:59 Intake Total 270 351.0 89.1 Output Total 885 1070 600 Balance -615 -719.0 -510.9 Weight 143 lb 3 oz Intake: IV 100 Intake, IV Amount 250 131.0 89.1 Right Distal Port Port-A- 250 131.0 89.1 Cath Oral 20 120 Output: Urine 885 870 600 Urethral (Soto) 885 870 600 Stool 200 0 Emesis 0 0 Other: # Bowel Movements 1 - Medications Active Medications: Active Medications Generic Name Dose Route Start Last Admin Trade Name Freq PRN Reason Stop Dose Admin Albuterol/Ipratropium 3 ml 01/28/18 20:00 02/06/18 14:00 Duoneb 3 Mg/0.5 Mg (3 Ml) Ud INH Not Given RQ6 [facility]IE Amlodipine Besylate 10 mg 02/06/18 09:11 02/06/18 09:40 Norvasc PO 10 mg DAILY [facility]IE Administration Enoxaparin Sodium 40 mg 01/28/18 14:45 02/02/18 10:55 Lovenox SC 40 mg DAILY [facility] Administration Furosemide 40 mg 02/02/18 18:00 02/06/18 18:34 Lasix IVP Not Given BID MILLIE Glimepiride 2 mg 01/28/18 18:00 02/06/18 18:34 Amaryl PO Not Given BID [facility] Hydralazine HCl 50 mg 02/06/18 10:00 02/06/18 18:34 Apresoline PO Not Given TID MILLIE Hydralazine HCl 10 mg 02/06/18 09:10 Apresoline IVP Q6H PRN Systolic Blood Pressure Cefepime HCl 1 gm in 50 mls @ 100 mls/hr 02/02/18 14:00 02/06/18 21:22 Maxipime Iv 1 Gm Premix IVPB 100 mls/hr Q8H [facility] Administration Protocol Ampicillin 2 gm/ Sodium 100 mls @ 50 mls/hr 02/04/18 18:00 02/06/18 19:48 Chloride IVPB 50 mls/hr Q6 M[facility]IE Administration Protocol Nitroglycerin/Dextrose 50 mg in 250 mls @ 1.5 mls/hr 02/06/18 09:15 02/06/18 14:27 Nitroglycerin 50 Mg/250 Ml D5w IV Not Given .Q24H [facility]IE Protocol 5 MCG/MIN Dexmedetomidine HCl 200 mcg/ 50 mls @ 3.24 mls/hr 02/06/18 10:00 02/06/18 14: 58 Sodium Chloride IV 0.99 mcg/kg/hr TITR PRN 16.07 mls/hr Anxiety Administration Protocol 0.2 MCG/KG/HR Insulin Aspart 0 unit 01/29/18 07:30 02/06/18 18:35 Novolog SC Not Given ACHS [facility] Protocol Lisinopril 20 mg 02/06/18 10:00 02/06/18 09:40 Zestril PO 20 mg DAILY [facility] Administration Methylprednisolone 40 mg 02/03/18 06:00 02/06/18 18:35 Solu-Medrol IVP Not Given Q12H [facility] Metoprolol Succinate 50 mg 01/29/18 10:00 02/06/18 09:06 Toprol Xl PO 50 mg DAILY [facility] Administration Multivitamins 1 tab 01/29/18 10:00 02/06/18 09:06 Hexavitamin PO 1 tab DAILY [facility] Administration Pantoprazole Sodium 40 mg 01/29/18 10:00 02/06/18 09:06 Protonix Ec Tab PO 40 mg DAILY [facility] Administration Pioglitazone HCl 30 mg 01/28/18 18:00 02/06/18 18:34 Actos PO Not Given QPM [facility] Fluticasone/Salmeterol 1 puff 01/29/18 20:00 02/06/18 08:44 Advair Diskus 250/50 INH Not Given RQ12 [facility]IE Tiotropium [place] 18 mcg 01/30/18 08:00 02/06/18 08:44 Spiriva INH Not Given RQ24 MILLIE - Patient Studies Lab Studies: Microbiology Studies 02/05/18 17:15 MRSA Culture (Admit) - Final Naris MRSA NOT DETECTED 02/01/18 02:03 Blood Culture - Final Blood NO GROWTH AFTER 5 DAYS Gram Stain - Final TEST NOT PERFORMED 02/01/18 02:03 Blood Culture - Final Blood NO GROWTH AFTER 5 DAYS Gram Stain - Final TEST NOT PERFORMED Lab Studies 02/06/18 02/06/18 02/06/18 Range/Units 16:12 12:08 07:40 WBC (4.8-10.8) K/uL RBC (3.80-5.20) Mil/uL Hgb (11.0-16.0) g/dL Hct (34.0-47.0) % MCV (81.0-99.0) fL MCH (27.0-31.0) pg MCHC (33.0-37.0) g/dL RDW (11.5-14.5) % Plt Count (130-400) K/uL MPV (7.2-11.7) fL Neut % (Auto) (50.0-75.0) % Lymph % (Auto) (20.0-40.0) % Chase % (Auto) (0.0-10.0) % Eos % (Auto) (0.0-4.0) % Baso % (Auto) (0.0-2.0) % Neut # (Auto) (1.8-7.0) K/uL Lymph # (Auto) (1.0-4.3) K/uL Chase # (Auto) (0.0-0.8) K/uL Eos # (Auto) (0.0-0.7) K/uL Baso # (Auto) (0.0-0.2) K/uL Neutrophils % (Manual) (50-75) % Band Neutrophils % (0-2) % Lymphocytes % (Manual) (20-40) % Monocytes % (Manual) (0-10) % Nucleated RBC % (0-0) % Platelet Estimate (NORMAL) Hypochromasia (manual) Poikilocytosis (manual Anisocytosis (manual) Microcytosis (manual) Target Cells Ovalocytes Puncture Site pCO2 (35-45) mm/Hg pO2 (80-100) mm/Hg HCO3 (21-28) mmol/L ABG pH (7.35-7.45) ABG Total CO2 (22-28) mmol/L ABG O2 Saturation (95-98) % ABG Base Excess (-2.0-3.0) mmol/L ABG Hemoglobin (11.7-17.4) g/dL ABG Carboxyhemoglobin (0.5-1.5) % POC ABG HHb (Measured) (0.0-5.0) % ABG Methemoglobin (0.0-3.0) % Chepe Test A-a O2 Difference mm/Hg Respiratory Index Hgb O2 Saturation (95.0-98.0) % Liter Flow FiO2 % Sodium (132-148) mmol/L Potassium (3.6-5.2) mmol/L Chloride (98-107) mmol/L Carbon Dioxide (22-30) mmol/L Anion Gap (10-20) BUN (7-17) mg/dL Creatinine (0.7-1.2) mg/dL Est GFR ( Amer) Est GFR (Non-Af Amer) POC Glucose (mg/dL) 275 H 293 H 192 H (65-110) mg/dL Random Glucose (65-105) mg/dL Calcium (8.6-10.4) mg/dl Phosphorus (2.5-4.5) mg/dL Magnesium (1.6-2.3) mg/dL Total Bilirubin (0.2-1.3) mg/dL AST (14-36) U/L ALT (9-52) U/L Alkaline Phosphatase (38-126) U/L Troponin I (0.00-0.120) ng/mL NT-Pro-B Natriuret Pep (0-900) pg/mL Total Protein (6.3-8.3) g/dL Albumin (3.5-5.0) g/dL Globulin (2.2-3.9) gm/dL Albumin/Globulin Ratio (1.0-2.1) 02/06/18 02/06/18 02/06/18 Range/Units 06:14 06:14 04:59 WBC 6.1 (4.8-10.8) K/uL RBC 3.29 L (3.80-5.20) Mil/uL Hgb 7.8 L (11.0-16.0) g/dL Hct 23.8 L (34.0-47.0) % MCV 72.4 L (81.0-99.0) fL MCH 23.6 L (27.0-31.0) pg MCHC 32.5 L (33.0-37.0) g/dL RDW 27.4 H (11.5-14.5) % Plt Count 85 L (130-400) K/uL MPV 9.8 (7.2-11.7) fL Neut % (Auto) 90.5 H (50.0-75.0) % Lymph % (Auto) 1.8 L (20.0-40.0) % Chase % (Auto) 7.0 (0.0-10.0) % Eos % (Auto) 0.1 (0.0-4.0) % Baso % (Auto) 0.6 (0.0-2.0) % Neut # (Auto) 5.6 (1.8-7.0) K/uL Lymph # (Auto) 0.1 L (1.0-4.3) K/uL Chase # (Auto) 0.4 (0.0-0.8) K/uL Eos # (Auto) 0.0 (0.0-0.7) K/uL Baso # (Auto) 0.0 (0.0-0.2) K/uL Neutrophils % (Manual) 92 H (50-75) % Band Neutrophils % (0-2) % Lymphocytes % (Manual) 3 L (20-40) % Monocytes % (Manual) 7 (0-10) % Nucleated RBC % 1 H (0-0) % Platelet Estimate Decreased L (NORMAL) Hypochromasia (manual) Slight Poikilocytosis (manual Slight Anisocytosis (manual) Slight Microcytosis (manual) Slight Target Cells Slight Ovalocytes Slight Puncture Site Rb pCO2 49 H (35-45) mm/Hg pO2 102 H (80-100) mm/Hg HCO3 38.7 H (21-28) mmol/L ABG pH 7.54 H (7.35-7.45) ABG Total CO2 43.4 H (22-28) mmol/L ABG O2 Saturation 98.9 H (95-98) % ABG Base Excess 17.6 H (-2.0-3.0) mmol/L ABG Hemoglobin 7.8 L (11.7-17.4) g/dL ABG Carboxyhemoglobin 1.5 (0.5-1.5) % POC ABG HHb (Measured) 1.1 (0.0-5.0) % ABG Methemoglobin 1.3 (0.0-3.0) % Chepe Test Na A-a O2 Difference 550.0 mm/Hg Respiratory Index 5.4 Hgb O2 Saturation 96.1 (95.0-98.0) % Liter Flow 15.0 FiO2 100.0 % Sodium 143 (132-148) mmol/L Potassium 3.6 (3.6-5.2) mmol/L Chloride 95 L (98-107) mmol/L Carbon Dioxide 41 H* (22-30) mmol/L Anion Gap 11 (10-20) BUN 36 H (7-17) mg/dL Creatinine 0.6 L (0.7-1.2) mg/dL Est GFR ( Amer) > 60 Est GFR (Non-Af Amer) > 60 POC Glucose (mg/dL) (65-110) mg/dL Random Glucose 219 H (65-105) mg/dL Calcium 9.7 (8.6-10.4) mg/dl Phosphorus 2.7 (2.5-4.5) mg/dL Magnesium 2.0 (1.6-2.3) mg/dL Total Bilirubin 1.0 (0.2-1.3) mg/dL AST 20 (14-36) U/L ALT 42 (9-52) U/L Alkaline Phosphatase 105 (38-126) U/L Troponin I (0.00-0.120) ng/mL NT-Pro-B Natriuret Pep (0-900) pg/mL Total Protein 5.4 L (6.3-8.3) g/dL Albumin 2.7 L (3.5-5.0) g/dL Globulin 2.7 (2.2-3.9) gm/dL Albumin/Globulin Ratio 1.0 (1.0-2.1) 02/05/18 02/05/18 02/05/18 Range/Units 22:49 22:49 21:24 WBC 5.7 (4.8-10.8) K/uL RBC 3.18 L (3.80-5.20) Mil/uL Hgb 7.3 L (11.0-16.0) g/dL Hct 22.8 L (34.0-47.0) % MCV 71.7 L (81.0-99.0) fL MCH 23.1 L (27.0-31.0) pg MCHC 32.2 L (33.0-37.0) g/dL RDW 27.5 H (11.5-14.5) % Plt Count 97 L (130-400) K/uL MPV 10.4 (7.2-11.7) fL Neut % (Auto) 85.7 H (50.0-75.0) % Lymph % (Auto) 8.3 L (20.0-40.0) % Chase % (Auto) 5.8 (0.0-10.0) % Eos % (Auto) 0.0 (0.0-4.0) % Baso % (Auto) 0.2 (0.0-2.0) % Neut # (Auto) 4.9 (1.8-7.0) K/uL Lymph # (Auto) 0.5 L (1.0-4.3) K/uL Chase # (Auto) 0.3 (0.0-0.8) K/uL Eos # (Auto) 0.0 (0.0-0.7) K/uL Baso # (Auto) 0.0 (0.0-0.2) K/uL Neutrophils % (Manual) 82 H (50-75) % Band Neutrophils % 2 (0-2) % Lymphocytes % (Manual) 9 L (20-40) % Monocytes % (Manual) 7 (0-10) % Nucleated RBC % (0-0) % Platelet Estimate Slightly decreased L (NORMAL) Hypochromasia (manual) Slight Poikilocytosis (manual Slight Anisocytosis (manual) Moderate Microcytosis (manual) Target Cells Ovalocytes Puncture Site pCO2 (35-45) mm/Hg pO2 (80-100) mm/Hg HCO3 (21-28) mmol/L ABG pH (7.35-7.45) ABG Total CO2 (22-28) mmol/L ABG O2 Saturation (95-98) % ABG Base Excess (-2.0-3.0) mmol/L ABG Hemoglobin (11.7-17.4) g/dL ABG Carboxyhemoglobin (0.5-1.5) % POC ABG HHb (Measured) (0.0-5.0) % ABG Methemoglobin (0.0-3.0) % Chepe Test A-a O2 Difference mm/Hg Respiratory Index Hgb O2 Saturation (95.0-98.0) % Liter Flow FiO2 % Sodium 139 (132-148) mmol/L Potassium 3.6 (3.6-5.2) mmol/L Chloride 94 L (98-107) mmol/L Carbon Dioxide 39 H (22-30) mmol/L Anion Gap 10 (10-20) BUN 35 H (7-17) mg/dL Creatinine 0.7 (0.7-1.2) mg/dL Est GFR ( Amer) > 60 Est GFR (Non-Af Amer) > 60 POC Glucose (mg/dL) 255 H (65-110) mg/dL Random Glucose 263 H (65-105) mg/dL Calcium 9.9 (8.6-10.4) mg/dl Phosphorus (2.5-4.5) mg/dL Magnesium (1.6-2.3) mg/dL Total Bilirubin (0.2-1.3) mg/dL AST (14-36) U/L ALT (9-52) U/L Alkaline Phosphatase (38-126) U/L Troponin I < 0.0120 (0.00-0.120) ng/mL NT-Pro-B Natriuret Pep 3610 H (0-900) pg/mL Total Protein (6.3-8.3) g/dL Albumin (3.5-5.0) g/dL Globulin (2.2-3.9) gm/dL Albumin/Globulin Ratio (1.0-2.1) Laboratory Results - last 24 hr 02/05/18 02/05/18 02/05/18 21:24 22:49 22:49 WBC 5.7 RBC 3.18 L Hgb 7.3 L Hct 22.8 L MCV 71.7 L MCH 23.1 L MCHC 32.2 L RDW 27.5 H Plt Count 97 L MPV 10.4 Neut % (Auto) 85.7 H Lymph % (Auto) 8.3 L Chase % (Auto) 5.8 Eos % (Auto) 0.0 Baso % (Auto) 0.2 Neut # (Auto) 4.9 Lymph # (Auto) 0.5 L Chase # (Auto) 0.3 Eos # (Auto) 0.0 Baso # (Auto) 0.0 Neutrophils % (Manual) 82 H Band Neutrophils % 2 Lymphocytes % (Manual) 9 L Monocytes % (Manual) 7 Nucleated RBC % Platelet Estimate Slightly decreased L Hypochromasia (manual) Slight Poikilocytosis (manual Slight Anisocytosis (manual) Moderate Microcytosis (manual) Target Cells Ovalocytes Puncture Site pCO2 pO2 HCO3 ABG pH ABG Total CO2 ABG O2 Saturation ABG Base Excess ABG Hemoglobin ABG Carboxyhemoglobin POC ABG HHb (Measured) ABG Methemoglobin Chepe Test A-a O2 Difference Respiratory Index Hgb O2 Saturation Liter Flow FiO2 Sodium 139 Potassium 3.6 Chloride 94 L Carbon Dioxide 39 H Anion Gap 10 BUN 35 H Creatinine 0.7 Est GFR ( Amer) > 60 Est GFR (Non-Af Amer) > 60 POC Glucose (mg/dL) 255 H Random Glucose 263 H Calcium 9.9 Phosphorus Magnesium Total Bilirubin AST ALT Alkaline Phosphatase Troponin I < 0.0120 NT-Pro-B Natriuret Pep 3610 H Total Protein Albumin Globulin Albumin/Globulin Ratio 02/06/18 02/06/18 02/06/18 04:59 06:14 06:14 WBC 6.1 RBC 3.29 L Hgb 7.8 L Hct 23.8 L MCV 72.4 L MCH 23.6 L MCHC 32.5 L RDW 27.4 H Plt Count 85 L MPV 9.8 Neut % (Auto) 90.5 H Lymph % (Auto) 1.8 L Chase % (Auto) 7.0 Eos % (Auto) 0.1 Baso % (Auto) 0.6 Neut # (Auto) 5.6 Lymph # (Auto) 0.1 L Chase # (Auto) 0.4 Eos # (Auto) 0.0 Baso # (Auto) 0.0 Neutrophils % (Manual) 92 H Band Neutrophils % Lymphocytes % (Manual) 3 L Monocytes % (Manual) 7 Nucleated RBC % 1 H Platelet Estimate Decreased L Hypochromasia (manual) Slight Poikilocytosis (manual Slight Anisocytosis (manual) Slight Microcytosis (manual) Slight Target Cells Slight Ovalocytes Slight Puncture Site Rb pCO2 49 H pO2 102 H HCO3 38.7 H ABG pH 7.54 H ABG Total CO2 43.4 H ABG O2 Saturation 98.9 H ABG Base Excess 17.6 H ABG Hemoglobin 7.8 L ABG Carboxyhemoglobin 1.5 POC ABG HHb (Measured) 1.1 ABG Methemoglobin 1.3 Chepe Test Na A-a O2 Difference 550.0 Respiratory Index 5.4 Hgb O2 Saturation 96.1 Liter Flow 15.0 FiO2 100.0 Sodium 143 Potassium 3.6 Chloride 95 L Carbon Dioxide 41 H* Anion Gap 11 BUN 36 H Creatinine 0.6 L Est GFR ( Amer) > 60 Est GFR (Non-Af Amer) > 60 POC Glucose (mg/dL) Random Glucose 219 H Calcium 9.7 Phosphorus 2.7 Magnesium 2.0 Total Bilirubin 1.0 AST 20 ALT 42 Alkaline Phosphatase 105 Troponin I NT-Pro-B Natriuret Pep Total Protein 5.4 L Albumin 2.7 L Globulin 2.7 Albumin/Globulin Ratio 1.0 02/06/18 02/06/18 02/06/18 07:40 12:08 16:12 WBC RBC Hgb Hct MCV MCH MCHC RDW Plt Count MPV Neut % (Auto) Lymph % (Auto) Chase % (Auto) Eos % (Auto) Baso % (Auto) Neut # (Auto) Lymph # (Auto) Chase # (Auto) Eos # (Auto) Baso # (Auto) Neutrophils % (Manual) Band Neutrophils % Lymphocytes % (Manual) Monocytes % (Manual) Nucleated RBC % Platelet Estimate Hypochromasia (manual) Poikilocytosis (manual Anisocytosis (manual) Microcytosis (manual) Target Cells Ovalocytes Puncture Site pCO2 pO2 HCO3 ABG pH ABG Total CO2 ABG O2 Saturation ABG Base Excess ABG Hemoglobin ABG Carboxyhemoglobin POC ABG HHb (Measured) ABG Methemoglobin Chepe Test A-a O2 Difference Respiratory Index Hgb O2 Saturation Liter Flow FiO2 Sodium Potassium Chloride Carbon Dioxide Anion Gap BUN Creatinine Est GFR ( Amer) Est GFR (Non-Af Amer) POC Glucose (mg/dL) 192 H 293 H 275 H Random Glucose Calcium Phosphorus Magnesium Total Bilirubin AST ALT Alkaline Phosphatase Troponin I NT-Pro-B Natriuret Pep Total Protein Albumin Globulin Albumin/Globulin Ratio Critical Care Progress Note - Nutrition Nutrition: Nutrition Category Date Time Status Diabetic [Consistent Carbohydrate] [DIET] Diets 02/03/18 Dinner Active Assessment/Plan - Assessment and Plan (Free Text) Plan: Above patient seen and examined at bedside. above resident note reviewed. Above resident documents my clinical findings and management - Date & Time Date: 02/06/18 Time: 19:00
--- NOTE | 2018-02-06 08:06 | RAD ---
Date of service: 02/05/2018 HISTORY: CHF COMPARISON: 02/03/2018. FINDINGS: The right MediPort terminates at the cavoatrial junction. LUNGS: The lungs are clear. PLEURA: No significant pleural effusion identified, no pneumothorax apparent. CARDIOVASCULAR: Normal. OSSEOUS STRUCTURES: No significant abnormalities. VISUALIZED UPPER ABDOMEN: Normal. OTHER FINDINGS: None. IMPRESSION: No acute findings.
[2018-02-06] MEDS: (Novolog) Insulin Aspart, Recombinant 100 u/ml 10 ml vial SC SCH ×4 (08:14→22:28)
[2018-02-06] MEDS: Fluticasone-Salmeterol 250-50mcg Diskus INH SCH (08:44)
[2018-02-06] MEDS: Tiotropium 18 mcg Cap For Inhalation INH SCH (08:44)
--- NOTE | 2018-02-06 08:45 | RAD ---
Date of service: 02/06/2018 HISTORY: CHF COMPARISON: 02/05/2018. FINDINGS: The right MediPort terminates at the cavoatrial junction. LUNGS: The lungs are well inflated. There is mild pulmonary venous congestion. PLEURA: No significant pleural effusion identified, no pneumothorax apparent. CARDIOVASCULAR: The heart is normal in size. Prominent central vasculature P OSSEOUS STRUCTURES: No significant abnormalities. VISUALIZED UPPER ABDOMEN: Normal. OTHER FINDINGS: None. IMPRESSION: Mild pulmonary venous congestion. No focal consolidation.
[2018-02-06 08:46] LABS: NEUTROPHIL 92 % (50-75); NUCLEATED RED BLOOD CELL 1 % (0-0); TOTAL CELLS COUNTED 100
[2018-02-06 08:47] LABS: ANISOCYTOSIS SLIGHT; HYPOCHROMIC SLIGHT; LYMPHOCYTE 3 % (20-40); MONOCYTE 7 % (0-10); PLATELET ESTIMATE DECREASED (NORMAL); POIKILOCYTOSIS SLIGHT
[2018-02-06 08:48] LABS: MICROCYTOSIS SLIGHT; OVALOCYTES SLIGHT; TARGET CELLS SLIGHT
[2018-02-06] MEDS: Multiple Vitamins Tab PO SCH (09:06)
[2018-02-06] MEDS: Metoprolol Succinate 50 mg XL Tab PO SCH (09:06)
[2018-02-06] MEDS: Pantoprazole 40 mg EC Tab PO SCH (09:06)
[2018-02-06] MEDS ORDERED: Nitroglycerin 50mg in D5W 50 MG/250 ML BOTTLE IV SCH (09:15)
[2018-02-06] MEDS ORDERED: Labetalol 5mg/ml (4ml) IVP STA (09:20)
[2018-02-06] MEDS: Dexmedetomidine Hydrochloride 200 MCG in Sodium Chloride 0.9% 48 ML IV PRN ×3 (10:03→14:58)
--- NOTE | 2018-02-06 14:45 | CON ---
Copied To: Brodie Krueger MD Attending MD: Brodie Krueger MD DATE: 02/06/2018 FOLLOWUP CONSULTATION HISTORY OF PRESENT ILLNESS: I spoke with the daughter again today, this morning here at the bedside with the patient. The patient has been moved to the intensive care unit now because her oxygen level has dropped again to 65 yesterday with a CO2 retention. The patient is verbal and able to lie flat in bed. PHYSICAL EXAMINATION: HEENT: Anicteric. NODES: Nonpalpable. LUNGS: Showed some scattered rhonchi. HEART: S1 and S2. ABDOMEN: Shows no liver, no spleen, no tenderness. EXTREMITIES: No edema. [employer]: Plantars are downgoing bilaterally. SKIN: No lesions. ASSESSMENT AND PLAN: I told to the daughter that now that she has been moved into intensive care unit. She is critically ill. She has too many critical values that are abnormal. The potassium, the sugars, the dehydration with the BUN, the bicarbonate, the retention of the oxygen levels. In the setting of the intensive care unit, I cannot 01:04 give chemotherapy and make her worse. Potentially, I said to her that as 01:18 proposes and got disposes. I then brought up the issue with intubation and resuscitation. I explained that with the setting of the intensive care unit, she can suddenly get worse and not to run these machines. It would not be painful for her because they put her on morphine with the machines, but the family will be surrounding her and I do not anticipate getting any better because it is a cancer and lymphoma that is causing her rapid deterioration, but the daughter understood this, but said the mother wants everything to be done, and she wants to bypass these wishes, and I said it is fine as long as she is aware that it is unlikely that if she gets put on this machine, she can improve. At this point, she understands why the daughter understands why I cannot give her chemotherapy from yesterday, I said her that I would try to do so if she leaves the intensive care unit I can rethink that possibility. Brodie Krueger MD
--- NOTE | 2018-02-06 17:30 | CP.PCM.PN ---
Subjective - Date & Time of Evaluation Date of Evaluation: 02/06/18 Time of Evaluation: 08:00 - Subjective Subjective: events noted iv rx renewed Objective - Vital Signs/Intake and Output Vital Signs (last 24 hours): Temp Pulse Resp BP Pulse Ox 98.4 F 71 25 H 110/56 L 98 02/06/18 12:00 02/06/18 13:00 02/06/18 16:27 02/06/18 11:18 02/06/18 13:00 Intake and Output: 02/06/18 02/06/18 06:59 18:59 Intake Total 410 334.8 Output Total 1130 970 Balance -720 -635.2 - Medications Medications: Current Medications Albuterol/Ipratropium (Duoneb 3 Mg/0.5 Mg (3 Ml) Ud) 3 ml INH RQ6 [facility] Last Admin: 02/06/18 14:00 Dose: Not Given Amlodipine Besylate (Norvasc) 10 mg PO DAILY [facility] Last Admin: 02/06/18 09:40 Dose: 10 mg Enoxaparin Sodium (Lovenox) 40 mg SC DAILY [facility] Last Admin: 02/02/18 10:55 Dose: 40 mg Furosemide (Lasix) 40 mg IVP BID [facility] Last Admin: 02/06/18 09:05 Dose: 40 mg Glimepiride (Amaryl) 2 mg PO BID [facility] Last Admin: 02/06/18 09:06 Dose: 2 mg Hydralazine HCl (Apresoline) 50 mg PO TID [facility] Last Admin: 02/06/18 14:51 Dose: Not Given Hydralazine HCl (Apresoline) 10 mg IVP Q6H PRN PRN Reason: Systolic Blood Pressure Cefepime HCl (Maxipime Iv 1 Gm Premix) 1 gm in 50 mls @ 100 mls/hr IVPB Q8H [facility] PRN Reason: Protocol Last Admin: 02/06/18 05:43 Dose: 100 mls/hr Ampicillin 2 gm/ Sodium (Chloride) 100 mls @ 50 mls/hr IVPB Q6 [facility] PRN Reason: Protocol Last Admin: 02/06/18 12:30 Dose: 50 mls/hr Nitroglycerin/Dextrose (Nitroglycerin 50 Mg/250 Ml D5w) 50 mg in 250 mls @ 1.5 mls/hr IV .Q24H MILLIE; 5 MCG/MIN PRN Reason: Protocol Last Admin: 02/06/18 14:27 Dose: Not Given Dexmedetomidine HCl 200 mcg/ (Sodium Chloride) 50 mls @ 3.24 mls/hr IV TITR PRN ; Protocol; 0.2 MCG/KG/HR PRN Reason: Anxiety Last Admin: 02/06/18 14:58 Dose: 0.99 mcg/kg/hr, 16.07 mls/hr Insulin Aspart (Novolog) 0 unit SC ACHS MILLIE PRN Reason: Protocol Last Admin: 02/06/18 13:27 Dose: Not Given Lisinopril (Zestril) 20 mg PO DAILY [facility] Last Admin: 02/06/18 09:40 Dose: 20 mg Methylprednisolone (Solu-Medrol) 40 mg IVP Q12H [facility]ILL[facility] Last Admin: 02/06/18 06:21 Dose: 40 mg Metoprolol Succinate (Toprol Xl) 50 mg PO DAILY [facility] Last Admin: 02/06/18 09:06 Dose: 50 mg Multivitamins (Hexavitamin) 1 tab PO DAILY [facility] Last Admin: 02/06/18 09:06 Dose: 1 tab Pantoprazole Sodium (Protonix Ec Tab) 40 mg PO DAILY [facility] Last Admin: 02/06/18 09:06 Dose: 40 mg Pioglitazone HCl (Actos) 30 mg PO QPM [facility] Last Admin: 02/05/18 18:00 Dose: 30 mg Fluticasone/Salmeterol (Advair Diskus 250/50) 1 puff INH RQ12 [facility] Last Admin: 02/06/18 08:44 Dose: Not Given Tiotropium [place] (Spiriva) 18 mcg INH RQ24 [facility] Last Admin: 02/06/18 08:44 Dose: Not Given - Labs Labs: 02/06/18 06:14 02/06/18 06:14 PT 15.9 SECONDS (9.7-12.2) H 01/28/18 10:14 INR 1.5 01/28/18 10:14 APTT 30 SECONDS (21-34) 01/28/18 10:14 - Constitutional Appears: Confused, Chronically Ill - Head Exam Head Exam: NORMOCEPHALIC - Eye Exam Eye Exam: absent: Scleral icterus - ENT Exam ENT Exam: Mucous Membranes Dry - Neck Exam Neck Exam: absent: Lymphadenopathy - Respiratory Exam Respiratory Exam: Decreased Breath Sounds - Cardiovascular Exam Cardiovascular Exam: REGULAR RHYTHM - GI/Abdominal Exam GI & Abdominal Exam: Distended, Soft - Rectal Exam Rectal Exam: Deferred - Exam Exam: NORMAL INSPECTION Assessment and Plan (1) CHF (congestive heart failure) Status: Acute (2) COPD exacerbation Status: Acute (3) Dehydration Status: Acute - Assessment and Plan (Free Text) Assessment: cont iv antibiotics + enterrococcus urine rx in progress
--- NOTE | 2018-02-06 21:10 | CP.PCM.PN ---
Subjective - Date & Time of Evaluation Date of Evaluation: 02/06/18 Time of Evaluation: 09:40 - Subjective Subjective: clinically same Objective - Vital Signs/Intake and Output Vital Signs (last 24 hours): Temp Pulse Resp BP Pulse Ox 98.5 F 73 26 H 86/40 L 100 02/06/18 16:00 02/06/18 19:30 02/06/18 19:30 02/06/18 19:18 02/06/18 19:30 Intake and Output: 02/06/18 02/07/18 18:59 06:59 Intake Total 415.8 24.3 Output Total 1490 180 Balance -1074.2 -155.7 - Medications Medications: Current Medications Albuterol/Ipratropium (Duoneb 3 Mg/0.5 Mg (3 Ml) Ud) 3 ml INH RQ6 [facility] Last Admin: 02/06/18 14:00 Dose: Not Given Amlodipine Besylate (Norvasc) 10 mg PO DAILY [facility] Last Admin: 02/06/18 09:40 Dose: 10 mg Enoxaparin Sodium (Lovenox) 40 mg SC DAILY [facility] Last Admin: 02/02/18 10:55 Dose: 40 mg Furosemide (Lasix) 40 mg IVP BID [facility] Last Admin: 02/06/18 18:34 Dose: Not Given Glimepiride (Amaryl) 2 mg PO BID [facility] Last Admin: 02/06/18 18:34 Dose: Not Given Hydralazine HCl (Apresoline) 50 mg PO TID [facility] Last Admin: 02/06/18 18:34 Dose: Not Given Hydralazine HCl (Apresoline) 10 mg IVP Q6H PRN PRN Reason: Systolic Blood Pressure Cefepime HCl (Maxipime Iv 1 Gm Premix) 1 gm in 50 mls @ 100 mls/hr IVPB Q8H [facility] PRN Reason: Protocol Last Admin: 02/06/18 15:00 Dose: 100 mls/hr Ampicillin 2 gm/ Sodium (Chloride) 100 mls @ 50 mls/hr IVPB Q6 [facility] PRN Reason: Protocol Last Admin: 02/06/18 19:48 Dose: 50 mls/hr Nitroglycerin/Dextrose (Nitroglycerin 50 Mg/250 Ml D5w) 50 mg in 250 mls @ 1.5 mls/hr IV .Q24H [facility]; 5 MCG/MIN PRN Reason: Protocol Last Admin: 02/06/18 14:27 Dose: Not Given Dexmedetomidine HCl 200 mcg/ (Sodium Chloride) 50 mls @ 3.24 mls/hr IV TITR PRN ; Protocol; 0.2 MCG/KG/HR PRN Reason: Anxiety Last Admin: 02/06/18 14:58 Dose: 0.99 mcg/kg/hr, 16.07 mls/hr Insulin Aspart (Novolog) 0 unit SC ACHS [facility] PRN Reason: Protocol Last Admin: 02/06/18 18:35 Dose: Not Given Lisinopril (Zestril) 20 mg PO DAILY [facility] Last Admin: 02/06/18 09:40 Dose: 20 mg Methylprednisolone (Solu-Medrol) 40 mg IVP Q12H [facility] Last Admin: 02/06/18 18:35 Dose: Not Given Metoprolol Succinate (Toprol Xl) 50 mg PO DAILY [facility] Last Admin: 02/06/18 09:06 Dose: 50 mg Multivitamins (Hexavitamin) 1 tab PO DAILY [facility] Last Admin: 02/06/18 09:06 Dose: 1 tab Pantoprazole Sodium (Protonix Ec Tab) 40 mg PO DAILY [facility] Last Admin: 02/06/18 09:06 Dose: 40 mg Pioglitazone HCl (Actos) 30 mg PO QPM [facility] Last Admin: 02/06/18 18:34 Dose: Not Given Fluticasone/Salmeterol (Advair Diskus 250/50) 1 puff INH RQ12 [facility] Last Admin: 02/06/18 08:44 Dose: Not Given Tiotropium [place] (Spiriva) 18 mcg INH RQ24 [facility] Last Admin: 02/06/18 08:44 Dose: Not Given - Labs Labs: 02/06/18 06:14 02/06/18 06:14 PT 15.9 SECONDS (9.7-12.2) H 01/28/18 10:14 INR 1.5 01/28/18 10:14 APTT 30 SECONDS (21-34) 01/28/18 10:14 - Constitutional Appears: Well - Head Exam Head Exam: ATRAUMATIC, NORMAL INSPECTION, NORMOCEPHALIC - Eye Exam Eye Exam: EOMI, Normal appearance, PERRL Pupil Exam: NORMAL ACCOMODATION, PERRL - ENT Exam ENT Exam: Mucous Membranes Moist, Normal Exam - Neck Exam Neck Exam: Full ROM, Normal Inspection. absent: Lymphadenopathy - Respiratory Exam Respiratory Exam: Decreased Breath Sounds - Cardiovascular Exam Cardiovascular Exam: REGULAR RHYTHM, +S1, +S2 - GI/Abdominal Exam GI & Abdominal Exam: Soft, Diminished Bowel Sounds - Rectal Exam Rectal Exam: Deferred
--- NOTE | 2018-02-06 23:14 | CP.PCM.PN ---
Subjective - Date & Time of Evaluation Date of Evaluation: 02/06/18 Time of Evaluation: 07:00 - Subjective Subjective: Events reviewed, moved to ICU for sepsis Objective - Vital Signs/Intake and Output Vital Signs (last 24 hours): Temp Pulse Resp BP Pulse Ox 98.5 F 73 24 86/40 L 100 02/06/18 16:00 02/06/18 19:30 02/06/18 22:17 02/06/18 19:18 02/06/18 19:30 Intake and Output: 02/06/18 02/07/18 18:59 06:59 Intake Total 415.8 64.3 Output Total 1490 180 Balance -1074.2 -115.7 - Medications Medications: Current Medications Albuterol/Ipratropium (Duoneb 3 Mg/0.5 Mg (3 Ml) Ud) 3 ml INH RQ6 [facility] Last Admin: 02/06/18 14:00 Dose: Not Given Amlodipine Besylate (Norvasc) 10 mg PO DAILY [facility] Last Admin: 02/06/18 09:40 Dose: 10 mg Enoxaparin Sodium (Lovenox) 40 mg SC DAILY [facility] Last Admin: 02/02/18 10:55 Dose: 40 mg Furosemide (Lasix) 40 mg IVP BID [facility] Last Admin: 02/06/18 18:34 Dose: Not Given Glimepiride (Amaryl) 2 mg PO BID [facility] Last Admin: 02/06/18 18:34 Dose: Not Given Hydralazine HCl (Apresoline) 50 mg PO TID [facility] Last Admin: 02/06/18 18:34 Dose: Not Given Hydralazine HCl (Apresoline) 10 mg IVP Q6H PRN PRN Reason: Systolic Blood Pressure Cefepime HCl (Maxipime Iv 1 Gm Premix) 1 gm in 50 mls @ 100 mls/hr IVPB Q8H [facility] PRN Reason: Protocol Last Admin: 02/06/18 21:22 Dose: 100 mls/hr Ampicillin 2 gm/ Sodium (Chloride) 100 mls @ 50 mls/hr IVPB Q6 [facility] PRN Reason: Protocol Last Admin: 02/06/18 19:48 Dose: 50 mls/hr Nitroglycerin/Dextrose (Nitroglycerin 50 Mg/250 Ml D5w) 50 mg in 250 mls @ 1.5 mls/hr IV .Q24H [facility]; 5 MCG/MIN PRN Reason: Protocol Last Admin: 02/06/18 14:27 Dose: Not Given Dexmedetomidine HCl 200 mcg/ (Sodium Chloride) 50 mls @ 3.24 mls/hr IV TITR PRN ; Protocol; 0.2 MCG/KG/HR PRN Reason: Anxiety Last Titration: 02/06/18 22:00 Dose: 0.3 mcg/kg/hr, 4.87 mls/hr Insulin Aspart (Novolog) 0 unit SC ACHS [facility] PRN Reason: Protocol Last Admin: 02/06/18 22:28 Dose: Not Given Lisinopril (Zestril) 20 mg PO DAILY [facility] Last Admin: 02/06/18 09:40 Dose: 20 mg Methylprednisolone (Solu-Medrol) 40 mg IVP Q12H [facility] Last Admin: 02/06/18 18:35 Dose: Not Given Metoprolol Succinate (Toprol Xl) 50 mg PO DAILY [facility] Last Admin: 02/06/18 09:06 Dose: 50 mg Multivitamins (Hexavitamin) 1 tab PO DAILY [facility] Last Admin: 02/06/18 09:06 Dose: 1 tab Pantoprazole Sodium (Protonix Ec Tab) 40 mg PO DAILY [facility] Last Admin: 02/06/18 09:06 Dose: 40 mg Pioglitazone HCl (Actos) 30 mg PO QPM [facility] Last Admin: 02/06/18 18:34 Dose: Not Given Fluticasone/Salmeterol (Advair Diskus 250/50) 1 puff INH RQ12 [facility] Last Admin: 02/06/18 08:44 Dose: Not Given Tiotropium [place] (Spiriva) 18 mcg INH RQ24 [facility] Last Admin: 02/06/18 08:44 Dose: Not Given - Labs Labs: 02/06/18 06:14 02/06/18 06:14 PT 15.9 SECONDS (9.7-12.2) H 01/28/18 10:14 INR 1.5 01/28/18 10:14 APTT 30 SECONDS (21-34) 01/28/18 10:14 - Constitutional Appears: Non-toxic, Chronically Ill - Respiratory Exam Respiratory Exam: Prolonged Expiratory Phase, NORMAL BREATHING PATTERN - Cardiovascular Exam Cardiovascular Exam: REGULAR RHYTHM, RRR, +S1, +S2. absent: JVD Additional comments: 1+ LE edema - GI/Abdominal Exam GI & Abdominal Exam: Normal Bowel Sounds Additional comments: Abdominal mass Assessment and Plan - Assessment and Plan (Free Text) Assessment: 2D echo images viewed by me: LVH, EF 65%; Stage I diastolic dysfunction, consistent with normal left atrial pressure Lymphadenopathy: large cell lymphoma AMS moved to ICU; Hypercarbia, needs Bipap for CO2 exchange. Sepsis hx of breast CA Anemia Low albumin COPD HTN DM Plan 1. ICU Care 2. ABX 3. Bipap 4. Holding antihypertensives and diuretics
--- NOTE | 2018-02-07 00:01 | CP.PCM.PCO ---
Additional Comments - Additional Comments Additional Comments: Patient not in distress but still on 100% FIO2, CXR appearing interstitial or vascular promience, but patient is clinically dry, and bp remained low most of the time, patient is also on precidex, since bp has been low most of the times and as per nursing is high during agitation will hold on prn and full dose newer meds, continue betablocker for now, CTA which was pending this am will be reordred due to high fio2 requirements, and indentify cxr finding better. Since patient clinically dry diuresis will also be currently held.
[2018-02-07] MEDS: AMPicillin 2 GM in Sodium Chloride 100 ML IVPB SCH ×4 (00:25→18:20)
[2018-02-07] MEDS: Dexmedetomidine Hydrochloride 200 MCG in Sodium Chloride 0.9% 48 ML IV PRN (00:28)
[2018-02-07] MEDS: Albuterol-Ipratrop 3 mg / 0.5 (3 ml) UD INH SCH ×3 (02:46→13:05)
[2018-02-07] MEDS: Cefepime IV 1 gm in Dextrose 1 GM/50 ML BAG IVPB SCH ×3 (05:00→21:21)
[2018-02-07 05:55] LABS: ABG ALLEN TEST POS; ARTERIAL BLOOD GAS HCO3 40.2 mmol/L (21-28); ARTERIAL BLOOD GAS O2 SAT 96.8 % (95-98); ARTERIAL BLOOD GAS PCO2 47 mm/Hg (35-45); ARTERIAL BLOOD GAS PH 7.58 (7.35-7.45); ARTERIAL BLOOD GAS PO2 68 mm/Hg (80-100); ARTERIAL BLOOD GAS TCO2 45.5 mmol/L (22-28)
[2018-02-07] MEDS: MethylPREDNISolone 40 mg Vial IVP SCH ×2 (06:00→18:21)
[2018-02-07 06:43] LABS: BASO % 0.3 % (0.0-2.0); LYMPH # 0.1 K/uL (1.0-4.3); LYMPH % 2.6 % (20.0-40.0); MEAN CELL VOLUME 72.3 fL (81.0-99.0); MEAN CORPUSCULAR HEMOGLOBIN 23.5 pg (27.0-31.0); MEAN CORPUSCULAR HGB CONC 32.5 g/dL (33.0-37.0); MEAN PLATELET VOLUME 10.1 fL (7.2-11.7); MONO # 0.3 K/uL (0.0-0.8); MONO % 6.8 % (0.0-10.0); NEUT # 4.3 K/uL (1.8-7.0); NEUT % 90.3 % (50.0-75.0); NRBC % 0.6 % (0.0-2.0); PLATELET COUNT 73 K/uL (130-400); RBC 2.65 Mil/uL (3.80-5.20); RED CELL DISTRIBUTION WIDTH 26.7 % (11.5-14.5); WHITE BLOOD COUNT 4.8 K/uL (4.8-10.8)
[2018-02-07 06:56] LABS: HEMOGLOBIN 6.2 g/dL (11.0-16.0)
[2018-02-07 07:26] LABS: ALB/GLOB RATIO 0.9 (1.0-2.1); ALBUMIN 2.3 g/dL (3.5-5.0); ALT/SGPT 49 U/L (9-52); AST/SGOT 18 U/L (14-36); BLOOD UREA NITROGEN 40 mg/dL (7-17); CALCIUM 9.3 mg/dl (8.6-10.4); GFR NON-AFRICAN AMERICAN > 60
--- NOTE | 2018-02-07 07:37 | CT ---
Date of service: 02/06/2018 PROCEDURE: CT Chest with contrast (Pulmonary Angiogram) HISTORY: Shortness of breath. Chest pain. Evaluate for pulmonary embolism. COMPARISON: CT chest pulmonary angiogram dated 01/28/2018 TECHNIQUE: Axial computed tomography images were obtained of the chest in the pulmonary arterial phase of enhancement. Coronal and sagittal reformatted images were created and reviewed. Sagittal and coronal 3D reformatted MIPS images were also obtained. Radiation dose: Total exam DLP = 466 mGy-cm. This CT exam was performed using one or more of the following dose reduction techniques: Automated exposure control, adjustment of the mA and/or kV according to patient size, and/or use of iterative reconstruction technique. FINDINGS: PULMONARY ARTERIES: Unremarkable. No pulmonary embolism. AORTA: Atherosclerotic vascular disease. Infrarenal abdominal aortic aneurysm. LUNGS: Atelectasis versus small infiltrates posteriorly at the lung bases. Additional milder scattered areas of atelectasis and or ground-glass infiltrate in the remainder of the lungs. 4 millimeter pulmonary nodule at the lateral aspect of the left upper lobe. Additional 7 millimeter pulmonary nodule more inferiorly in the lingula on series 4, image 73. PLEURAL SPACES: Small bilateral pleural effusions. HEART: Coronary arterial calcifications. LYMPH NODES: Bilateral axillary adenopathy. Mediastinal adenopathy. Retroperitoneal adenopathy. For example, left axillary lymph node measures up to 2.6 x 1.4 centimeters, precarinal lymph node measures 2.1 x 1.7 centimeters, right hilar lymph node measures 2.9 x 1.5 centimeters, and retroperitoneal adenopathy in the upper abdomen measures up to 4.6 x 3.8 centimeters. BONES, CHEST WALL: Degenerative changes. OTHER FINDINGS: Cholelithiasis. Splenomegaly. Splenule. Enlarged right adrenal gland. Perihepatic ascites. 2.4 centimeter low-attenuation lesion at the upper pole of the left kidney demonstrating a Hounsfield unit attenuation of 9 suggestive for a cyst. Right chest wall port. Tip of catheter in superior vena cava. IMPRESSION: No acute pulmonary embolism. Diffuse adenopathy. Clinical correlation. Small bilateral pleural effusions. Additional findings as above. These findings were preliminarily reported at 1:03 a.m. on 02/07/[address] Dane Lakhani from [email or web address].
[2018-02-07] MEDS: Fluticasone-Salmeterol 250-50mcg Diskus INH SCH (07:48)
[2018-02-07] MEDS: Tiotropium 18 mcg Cap For Inhalation INH SCH (07:49)
[2018-02-07] MEDS: (Novolog) Insulin Aspart, Recombinant 100 u/ml 10 ml vial SC SCH ×4 (08:41→21:41)
[2018-02-07 09:37] LABS: ANISOCYTOSIS MODERATE; BANDS 4 % (0-2); LYMPHOCYTE 4 % (20-40); MONOCYTE 5 % (0-10); NEUTROPHIL 87 % (50-75); PLATELET ESTIMATE DECREASED (NORMAL); TOTAL CELLS COUNTED 100
[2018-02-07 09:38] LABS: HYPOCHROMIC MODERATE; MICROCYTOSIS SLIGHT; POLYCHROMIC SLIGHT; TARGET CELLS SLIGHT
[2018-02-07] MEDS: Pantoprazole 40 mg EC Tab PO SCH (10:00)
[2018-02-07] MEDS: Multiple Vitamins Tab PO SCH (10:00)
--- NOTE | 2018-02-07 10:39 | RAD ---
Chest x-ray single frontal view History: Congestive heart failure. Comparison: 02/06/2018 Findings: Mild to moderate venous congestion. Right hilar and infrahilar consolidative changes. Linear atelectatic changes at right lung base. Enlarged ectatic aorta. Mild cardiomegaly. Right chest wall port with tip extending to the cavoatrial junction. Biapical pleural thickening with upper lobe granulomatous changes. Degenerative changes in the spine and shoulders. Impression: Mild to moderate venous congestion. Right hilar and infrahilar consolidative changes. Linear atelectatic changes at right lung base. Enlarged ectatic aorta. Mild cardiomegaly. Right chest wall port with tip extending to the cavoatrial junction. Biapical pleural thickening with upper lobe granulomatous changes.
[2018-02-07] MEDS: Metoprolol Succinate 50 mg XL Tab PO SCH (12:48)
--- NOTE | 2018-02-07 13:40 | CP.PCM.PN ---
Subjective - Date & Time of Evaluation Date of Evaluation: 02/07/18 Time of Evaluation: 10:00 - Subjective Subjective: clinically same Objective - Vital Signs/Intake and Output Vital Signs (last 24 hours): Temp Pulse Resp BP Pulse Ox 98.1 F 82 28 H 108/52 L 96 02/07/18 08:40 02/07/18 10:18 02/07/18 13:15 02/07/18 10:18 02/07/18 10:18 Intake and Output: 02/07/18 02/07/18 06:59 18:59 Intake Total 376.5 164.7 Output Total 655 260 Balance -278.5 -95.3 - Medications Medications: Current Medications Albuterol/Ipratropium (Duoneb 3 Mg/0.5 Mg (3 Ml) Ud) 3 ml INH RQ6 [facility] Last Admin: 02/07/18 13:05 Dose: 3 ml Amlodipine Besylate (Norvasc) 10 mg PO DAILY [facility] Last Admin: 02/06/18 09:40 Dose: 10 mg Enoxaparin Sodium (Lovenox) 40 mg SC DAILY [facility] Last Admin: 02/02/18 10:55 Dose: 40 mg Furosemide (Lasix) 40 mg IVP BID [facility] Last Admin: 02/07/18 10:18 Dose: 40 mg Glimepiride (Amaryl) 2 mg PO BID [facility] Last Admin: 02/06/18 18:34 Dose: Not Given Hydralazine HCl (Apresoline) 50 mg PO TID [facility] Last Admin: 02/06/18 18:34 Dose: Not Given Cefepime HCl (Maxipime Iv 1 Gm Premix) 1 gm in 50 mls @ 100 mls/hr IVPB Q8H [facility] PRN Reason: Protocol Last Admin: 02/07/18 05:00 Dose: 100 mls/hr Ampicillin 2 gm/ Sodium (Chloride) 100 mls @ 50 mls/hr IVPB Q6 [facility] PRN Reason: Protocol Last Admin: 02/07/18 12:04 Dose: 50 mls/hr Insulin Aspart (Novolog) 0 unit SC ACHS [facility] PRN Reason: Protocol Last Admin: 02/07/18 12:46 Dose: 2 units Lisinopril (Zestril) 20 mg PO DAILY [facility] Last Admin: 02/06/18 09:40 Dose: 20 mg Methylprednisolone (Solu-Medrol) 40 mg IVP Q12H [facility] Last Admin: 02/07/18 06:00 Dose: 40 mg Metoprolol Succinate (Toprol Xl) 50 mg PO DAILY [facility] Last Admin: 02/07/18 12:48 Dose: 50 mg Multivitamins (Hexavitamin) 1 tab PO DAILY [facility] Last Admin: 02/07/18 10:00 Dose: Not Given Pantoprazole Sodium (Protonix Ec Tab) 40 mg PO DAILY [facility] Last Admin: 02/07/18 10:00 Dose: Not Given Pioglitazone HCl (Actos) 30 mg PO QPM [facility] Last Admin: 02/06/18 18:34 Dose: Not Given Tiotropium [place] (Spiriva) 18 mcg INH RQ24 [facility] Last Admin: 02/07/18 07:49 Dose: Not Given - Labs Labs: 02/07/18 06:35 02/07/18 06:29 PT 15.9 SECONDS (9.7-12.2) H 01/28/18 10:14 INR 1.5 01/28/18 10:14 APTT 30 SECONDS (21-34) 01/28/18 10:14 - Constitutional Appears: Well - Head Exam Head Exam: ATRAUMATIC, NORMAL INSPECTION, NORMOCEPHALIC - Eye Exam Eye Exam: EOMI, Normal appearance, PERRL Pupil Exam: NORMAL ACCOMODATION, PERRL - ENT Exam ENT Exam: Mucous Membranes Moist, Normal Exam - Neck Exam Neck Exam: Full ROM, Normal Inspection. absent: Lymphadenopathy - Respiratory Exam Respiratory Exam: Decreased Breath Sounds - Cardiovascular Exam Cardiovascular Exam: REGULAR RHYTHM, +S1, +S2 - GI/Abdominal Exam GI & Abdominal Exam: Soft, Diminished Bowel Sounds - Rectal Exam Rectal Exam: Deferred
[2018-02-07] MEDS ORDERED: Acetaminophen 650mg/20.3ml solution UD PO ONE (21:00)
[2018-02-08] MEDS: AMPicillin 2 GM in Sodium Chloride 100 ML IVPB SCH ×5 (01:36→23:15)
[2018-02-08] MEDS: Cefepime IV 1 gm in Dextrose 1 GM/50 ML BAG IVPB SCH ×3 (05:00→21:29)
[2018-02-08 05:36] LABS: ABG ALLEN TEST POS; ARTERIAL BLOOD GAS HCO3 38.6 mmol/L (21-28); ARTERIAL BLOOD GAS O2 SAT 97.2 % (95-98); ARTERIAL BLOOD GAS PCO2 50 mm/Hg (35-45); ARTERIAL BLOOD GAS PH 7.54 (7.35-7.45); ARTERIAL BLOOD GAS PO2 70 mm/Hg (80-100); ARTERIAL BLOOD GAS TCO2 44.3 mmol/L (22-28)
[2018-02-08 06:34] LABS: BASO % 0.3 % (0.0-2.0); HEMOGLOBIN 9.7 g/dL (11.0-16.0); LYMPH # 0.2 K/uL (1.0-4.3); LYMPH % 2.1 % (20.0-40.0); MEAN CELL VOLUME 75.9 fL (81.0-99.0); MEAN CORPUSCULAR HEMOGLOBIN 24.9 pg (27.0-31.0); MEAN CORPUSCULAR HGB CONC 32.8 g/dL (33.0-37.0); MEAN PLATELET VOLUME 9.7 fL (7.2-11.7); MONO # 0.4 K/uL (0.0-0.8); MONO % 4.7 % (0.0-10.0); NEUT # 7.8 K/uL (1.8-7.0); NEUT % 92.9 % (50.0-75.0); NRBC % 0.3 % (0.0-2.0); PLATELET COUNT 79 K/uL (130-400); RBC 3.87 Mil/uL (3.80-5.20); RED CELL DISTRIBUTION WIDTH 24.2 % (11.5-14.5); WHITE BLOOD COUNT 8.4 K/uL (4.8-10.8)
[2018-02-08 06:48] LABS: ALB/GLOB RATIO 0.9 (1.0-2.1); ALBUMIN 2.5 g/dL (3.5-5.0); ALT/SGPT 71 U/L (9-52); AST/SGOT 44 U/L (14-36); BLOOD UREA NITROGEN 41 mg/dL (7-17); CALCIUM 9.4 mg/dl (8.6-10.4); GFR NON-AFRICAN AMERICAN > 60
[2018-02-08] MEDS: MethylPREDNISolone 40 mg Vial IVP SCH ×2 (07:00→17:17)
[2018-02-08] MEDS: Tiotropium 18 mcg Cap For Inhalation INH SCH (07:33)
[2018-02-08] MEDS: (Novolog) Insulin Aspart, Recombinant 100 u/ml 10 ml vial SC SCH ×4 (08:00→21:54)
[2018-02-08 08:43] LABS: BANDS 3 % (0-2); LYMPHOCYTE 2 % (20-40); MONOCYTE 5 % (0-10); NEUTROPHIL 90 % (50-75); PLATELET ESTIMATE DECREASED (NORMAL); TOTAL CELLS COUNTED 100
[2018-02-08 08:44] LABS: ANISOCYTOSIS MODERATE
[2018-02-08 08:50] LABS: HYPOCHROMIC SLIGHT; POLYCHROMIC SLIGHT
[2018-02-08 08:51] LABS: TOXIC GRANULATION PRESENT
[2018-02-08] MEDS: Enoxaparin 40 mg Syringe SC SCH (09:58)
[2018-02-08] MEDS: Metoprolol Succinate 50 mg XL Tab PO SCH (09:59)
[2018-02-08] MEDS: Pantoprazole 40 mg EC Tab PO SCH (09:59)
--- NOTE | 2018-02-08 14:32 | CP.PCM.PN ---
Subjective - Date & Time of Evaluation Date of Evaluation: 02/08/18 Time of Evaluation: 09:15 - Subjective Subjective: clinically same Objective - Vital Signs/Intake and Output Vital Signs (last 24 hours): Temp Pulse Resp BP Pulse Ox 98.4 F 92 H 22 147/59 L 96 02/08/18 08:00 02/08/18 08:45 02/08/18 13:53 02/08/18 08:45 02/08/18 08:45 Intake and Output: 02/08/18 02/08/18 06:59 18:59 Intake Total 925 0 Output Total 1925 300 Balance -1000 -300 - Medications Medications: Current Medications Amlodipine Besylate (Norvasc) [address] [facility] Last Admin: 02/06/18 09:40 Dose: 10 mg Enoxaparin Sodium (Lovenox) [address] [facility] Last Admin: 02/08/18 09:58 Dose: 40 mg Furosemide (Lasix) [address] [facility] Last Admin: 02/07/18 18:22 Dose: 40 mg Glimepiride (Amaryl) [address] [facility] Last Admin: 02/08/18 09:59 Dose: 2 mg Hydralazine HCl (Apresoline) [address] [facility] Last Admin: 02/06/18 18:34 Dose: Not Given Cefepime HCl (Maxipime Iv 1 Gm Premix) 1 gm in 50 mls @ 100 mls/hr IVPB Q8H [facility] PRN Reason: Protocol Last Admin: 02/08/18 05:00 Dose: 100 mls/hr Ampicillin 2 gm/ Sodium (Chloride) 100 mls @ 50 mls/hr IVPB Q6 [facility] PRN Reason: Protocol Last Admin: 02/08/18 12:36 Dose: 50 mls/hr Potassium Chloride (Potassium Chloride 20 Meq/100 Ml) 20 meq in 100 mls @ 50 mls/hr IVPB Q2 [facility] Stop: 02/08/18 21:59 Insulin Aspart (Novolog) 0 unit SC ACHS [facility] PRN Reason: Protocol Last Admin: 02/08/18 12:10 Dose: 1 units Lisinopril (Zestril) [address] [facility] Last Admin: 02/06/18 09:40 Dose: 20 mg Methylprednisolone (Solu-Medrol) [address] [facility] Last Admin: 02/08/18 07:00 Dose: 40 mg Metoprolol Succinate (Toprol Xl) [address] [facility] Last Admin: 02/08/18 09:59 Dose: 50 mg Multivitamins (Hexavitamin) [address] [facility] Last Admin: 02/07/18 10:00 Dose: Not Given Pantoprazole Sodium (Protonix Ec Tab) [address] [facility] Last Admin: 02/08/18 09:59 Dose: 40 mg Pioglitazone HCl (Actos) [address] [facility] Last Admin: 02/07/18 18:43 Dose: 30 mg Tiotropium [place] (Spiriva) [address] [facility] Last Admin: 02/08/18 07:33 Dose: Not Given - Labs Labs: 02/08/18 06:22 02/08/18 06:22 PT 15.9 SECONDS (9.7-12.2) H 01/28/18 10:14 INR 1.5 01/28/18 10:14 APTT 30 SECONDS (21-34) 01/28/18 10:14 - Constitutional Appears: Well - Head Exam Head Exam: ATRAUMATIC, NORMAL INSPECTION, NORMOCEPHALIC - Eye Exam Eye Exam: EOMI, Normal appearance, PERRL Pupil Exam: NORMAL ACCOMODATION, PERRL - ENT Exam ENT Exam: Mucous Membranes Moist, Normal Exam - Neck Exam Neck Exam: Full ROM, Normal Inspection. absent: Lymphadenopathy - Respiratory Exam Respiratory Exam: Decreased Breath Sounds - Cardiovascular Exam Cardiovascular Exam: REGULAR RHYTHM, +S1 - GI/Abdominal Exam GI & Abdominal Exam: Soft, Diminished Bowel Sounds - Rectal Exam Rectal Exam: Deferred
--- NOTE | 2018-02-08 15:20 | CP.PCM.PN ---
Subjective - Date & Time of Evaluation Date of Evaluation: 02/08/18 Time of Evaluation: 07:00 - Subjective Subjective: improving no fever Objective - Vital Signs/Intake and Output Vital Signs (last 24 hours): Temp Pulse Resp BP Pulse Ox 98.4 F 79 30 H 153/66 H 96 02/08/18 08:00 02/08/18 14:30 02/08/18 14:30 02/08/18 14:30 02/08/18 14:30 Intake and Output: 02/08/18 02/08/18 06:59 18:59 Intake Total 925 590 Output Total 1925 750 Balance -1000 -160 - Medications Medications: Current Medications Amlodipine Besylate (Norvasc) 10 mg PO DAILY [facility] Last Admin: 02/06/18 09:40 Dose: 10 mg Enoxaparin Sodium (Lovenox) 40 mg SC DAILY [facility] Last Admin: 02/08/18 09:58 Dose: 40 mg Furosemide (Lasix) 40 mg IVP BID [facility] Last Admin: 02/07/18 18:22 Dose: 40 mg Glimepiride (Amaryl) 2 mg PO BID [facility] Last Admin: 02/08/18 09:59 Dose: 2 mg Hydralazine HCl (Apresoline) 50 mg PO TID [facility] Last Admin: 02/06/18 18:34 Dose: Not Given Cefepime HCl (Maxipime Iv 1 Gm Premix) 1 gm in 50 mls @ 100 mls/hr IVPB Q8H [facility] PRN Reason: Protocol Last Admin: 02/08/18 14:46 Dose: 100 mls/hr Ampicillin 2 gm/ Sodium (Chloride) 100 mls @ 50 mls/hr IVPB Q6 [facility] PRN Reason: Protocol Last Admin: 02/08/18 12:36 Dose: 50 mls/hr Potassium Chloride (Potassium Chloride 20 Meq/100 Ml) 20 meq in 100 mls @ 50 mls/hr IVPB Q2 [facility] Stop: 02/08/18 21:59 Insulin Aspart (Novolog) 0 unit SC ACHS [facility] PRN Reason: Protocol Last Admin: 02/08/18 12:10 Dose: 1 units Lisinopril (Zestril) 20 mg PO DAILY [facility] Last Admin: 02/06/18 09:40 Dose: 20 mg Methylprednisolone (Solu-Medrol) 40 mg IVP Q12H [facility] Last Admin: 02/08/18 07:00 Dose: 40 mg Metoprolol Succinate (Toprol Xl) 50 mg PO DAILY [facility] Last Admin: 02/08/18 09:59 Dose: 50 mg Multivitamins (Hexavitamin) 1 tab PO DAILY [facility] Last Admin: 02/07/18 10:00 Dose: Not Given Pantoprazole Sodium (Protonix Ec Tab) 40 mg PO DAILY [facility] Last Admin: 02/08/18 09:59 Dose: 40 mg Pioglitazone HCl (Actos) 30 mg PO QPM [facility] Last Admin: 02/07/18 18:43 Dose: 30 mg Tiotropium [place] (Spiriva) 18 mcg INH RQ24 [facility] Last Admin: 02/08/18 07:33 Dose: Not Given - Labs Labs: 02/08/18 06:22 02/08/18 06:22 PT 15.9 SECONDS (9.7-12.2) H 01/28/18 10:14 INR 1.5 01/28/18 10:14 APTT 30 SECONDS (21-34) 01/28/18 10:14 - Constitutional Appears: Non-toxic, Chronically Ill - Head Exam Head Exam: NORMOCEPHALIC - Eye Exam Eye Exam: PERRL - ENT Exam ENT Exam: Mucous Membranes Dry - Neck Exam Neck Exam: absent: Lymphadenopathy - Respiratory Exam Respiratory Exam: Decreased Breath Sounds, Prolonged Expiratory Phase - Cardiovascular Exam Cardiovascular Exam: REGULAR RHYTHM, +S1, +S2 - GI/Abdominal Exam GI & Abdominal Exam: Distended, Soft. absent: Tenderness Assessment and Plan (1) CHF (congestive heart failure) Status: Acute (2) COPD exacerbation Status: Acute (3) Dehydration Status: Acute - Assessment and Plan (Free Text) Assessment: rx renewed
--- NOTE | 2018-02-08 17:25 | CP.CCUPN ---
CCU Subjective - Physician Review Events Since Last Encounter (Free Text): 02/08/18 17:22 patient is clinically stable on high flow oxygen, c/o back pain laying in bed. CCU Objective - Vital Signs / Intake & Output Vital Signs (Last 4 hours): Vital Signs Pulse Resp BP Pulse Ox 02/08/18 16:30 91 H 21 169/76 H 95 02/08/18 16:00 87 26 H 96 02/08/18 15:55 21 02/08/18 15:30 81 27 H 97 02/08/18 15:00 79 22 96 02/08/18 14:30 79 30 H 153/66 H 96 02/08/18 14:00 83 20 98 02/08/18 13:53 22 02/08/18 13:30 81 29 H 155/69 H 96 Intake and Output (Last 8hrs): Intake & Output 02/08/18 02/08/18 02/08/18 06:59 14:59 22:59 Intake Total 425 590 0 Output Total 650 750 175 Balance -225 -160 -175 Weight 132 lb 6.4 oz Intake: Intake, IV Amount 100 150 0 Right Distal Port Port-A- 100 150 0 Cath Right Port-A-Cath 0 0 Oral 440 0 Blood Product 325 Red Blood Cells Cpd As1 325 Lr Unit [id number] Output: Urine 650 500 75 Urethral ([place]oto) 650 500 75 Stool 250 100 Emesis 0 0 Other: # Bowel Movements 1 - Physical Exam Head: Positive for: Atraumatic, Normocephalic Extroacular Muscles: Positive for: EOMI Mouth: Positive for: Moist Mucous Membranes Respiratory/Chest: Positive for: Decreased Breath Sounds Cardiovascular: Positive for: Normal S1, S2, Tachycardic, Other (portacath R chest) Abdomen: Positive for: Tenderness (right sided), Normal Bowel Sounds Lower Extremity: Positive for: Other (scds in place). Negative for: Edema Skin: Positive for: Warm, Dry Psychiatric: Positive for: Alert - Medications Active Medications: Active Medications Generic Name Dose Route Start Last Admin Trade Name Freq PRN Reason Stop Dose Admin Amlodipine Besylate 10 mg 02/06/18 09:11 02/06/18 09:40 Norvasc PO 10 mg DAILY MILLIE Administration Enoxaparin Sodium 40 mg 01/28/18 14:45 02/08/18 09:58 Lovenox SC 40 mg DAILY MILLIE Administration Furosemide 40 mg 02/02/18 18:00 02/07/18 18:22 Lasix IVP 40 mg BID MILLIE Administration Glimepiride 2 mg 01/28/18 18:00 02/08/18 17:17 Amaryl PO 2 mg BID MILLIE Administration Hydralazine HCl 50 mg 02/06/18 10:00 02/06/18 18:34 Apresoline PO Not Given TID MILLIE Cefepime HCl 1 gm in 50 mls @ 100 mls/hr 02/02/18 14:00 02/08/18 14:46 Maxipime Iv 1 Gm Premix IVPB 100 mls/hr Q8H MILLIE Administration Protocol Ampicillin 2 gm/ Sodium 100 mls @ 50 mls/hr 02/04/18 18:00 02/08/18 17:17 Chloride IVPB 50 mls/hr Q6 MILLIE Administration Protocol Potassium Chloride 20 meq in 100 mls @ 50 mls/hr 02/08/18 16:00 02/08/18 16: 30 Potassium Chloride 20 Meq/100 Ml IVPB 02/08/18 21:59 50 mls/hr Q2 MILLIE Administration Insulin Aspart 0 unit 01/29/18 07:30 02/08/18 16:52 Novolog SC Not Given ACHS [facility] Protocol Lisinopril 20 mg 02/06/18 10:00 02/06/18 09:40 Zestril PO 20 mg DAILY MILLIE Administration Methylprednisolone 40 mg 02/03/18 06:00 02/08/18 17:17 Solu-Medrol IVP 40 mg Q12H MILLIE Administration Metoprolol Succinate 50 mg 01/29/18 10:00 02/08/18 09:59 Toprol Xl PO 50 mg DAILY MILLIE Administration Multivitamins 1 tab 01/29/18 10:00 02/07/18 10:00 Hexavitamin PO Not Given DAILY MILLIE Pantoprazole Sodium 40 mg 01/29/18 10:00 02/08/18 09:59 Protonix Ec Tab PO 40 mg DAILY MILLIE Administration Pioglitazone HCl 30 mg 01/28/18 18:00 02/08/18 17:22 Actos PO 30 mg QPM MILLIE Administration Tiotropium Pioneer 18 mcg 01/30/18 08:00 02/08/18 07:33 Spiriva INH Not Given RQ24 MILLIE - Patient Studies Lab Studies: Lab Studies 02/08/18 02/08/18 02/08/18 Range/Units 06:22 06:22 04:51 WBC 8.4 D (4.8-10.8) K/uL RBC 3.87 (3.80-5.20) Mil/uL Hgb 9.7 L D (11.0-16.0) g/dL Hct 29.4 L (34.0-47.0) % MCV 75.9 L D (81.0-99.0) fL MCH 24.9 L (27.0-31.0) pg MCHC 32.8 L (33.0-37.0) g/dL RDW 24.2 H (11.5-14.5) % Plt Count 79 L (130-400) K/uL MPV 9.7 (7.2-11.7) fL Neut % (Auto) 92.9 H (50.0-75.0) % Lymph % (Auto) 2.1 L (20.0-40.0) % [place] % (Auto) 4.7 (0.0-10.0) % Eos % (Auto) 0.0 (0.0-4.0) % Baso % (Auto) 0.3 (0.0-2.0) % Neut # (Auto) 7.8 H (1.8-7.0) K/uL Lymph # (Auto) 0.2 L (1.0-4.3) K/uL [place] # (Auto) 0.4 (0.0-0.8) K/uL Eos # (Auto) 0.0 (0.0-0.7) K/uL Baso # (Auto) 0.0 (0.0-0.2) K/uL Neutrophils % (Manual) 90 H (50-75) % Band Neutrophils % 3 H (0-2) % Lymphocytes % (Manual) 2 L (20-40) % Monocytes % (Manual) 5 (0-10) % Toxic Granulation Present Platelet Estimate Decreased L (NORMAL) Polychromasia Slight Hypochromasia (manual) Slight Anisocytosis (manual) Moderate Puncture Site R rad pCO2 50 H (35-45) mm/Hg pO2 70 L (80-100) mm/Hg HCO3 38.6 H (21-28) mmol/L ABG pH 7.54 H (7.35-7.45) ABG Total CO2 44.3 H (22-28) mmol/L ABG O2 Saturation 97.2 (95-98) % ABG Base Excess 17.6 H (-2.0-3.0) mmol/L Chepe Test Pos ABG Potassium 2.8 L (3.6-5.2) mmol/L A-a O2 Difference 581.0 mm/Hg Respiratory Index 8.3 Sodium 141 139.0 (132-148) mmol/l Chloride 91 L 101.0 (98-107) mmol/L Glucose 187 H (65-105) mg/dl Lactate 1.2 (0.7-2.1) mmol/L Vent Mode Hi flow FiO2 100.0 % Potassium 3.0 L (3.6-5.2) mmol/L Carbon Dioxide 42 H* (22-30) mmol/L Anion Gap 11 (10-20) BUN 41 H (7-17) mg/dL Creatinine 0.8 (0.7-1.2) mg/dL Est GFR ( Amer) > 60 Est GFR (Non-Af Amer) > 60 Random Glucose 189 H (65-105) mg/dL Calcium 9.4 (8.6-10.4) mg/dl Phosphorus 2.9 (2.5-4.5) mg/dL Magnesium 1.9 (1.6-2.3) mg/dL Total Bilirubin 1.3 (0.2-1.3) mg/dL AST 44 H D (14-36) U/L ALT 71 H D (9-52) U/L Alkaline Phosphatase 178 H D (38-126) U/L Total Protein 5.3 L (6.3-8.3) g/dL Albumin 2.5 L (3.5-5.0) g/dL Globulin 2.8 (2.2-3.9) gm/dL Albumin/Globulin Ratio 0.9 L (1.0-2.1) Arterial Blood Potassium 2.8 L (3.6-5.2) mmol/L Blood Type Antibody Screen 02/05/18 Range/Units 14:53 WBC (4.8-10.8) K/uL RBC (3.80-5.20) Mil/uL Hgb (11.0-16.0) g/dL Hct (34.0-47.0) % MCV (81.0-99.0) fL MCH (27.0-31.0) pg MCHC (33.0-37.0) g/dL RDW (11.5-14.5) % Plt Count (130-400) K/uL MPV (7.2-11.7) fL Neut % (Auto) (50.0-75.0) % Lymph % (Auto) (20.0-40.0) % [place] % (Auto) (0.0-10.0) % Eos % (Auto) (0.0-4.0) % Baso % (Auto) (0.0-2.0) % Neut # (Auto) (1.8-7.0) K/uL Lymph # (Auto) (1.0-4.3) K/uL [place] # (Auto) (0.0-0.8) K/uL Eos # (Auto) (0.0-0.7) K/uL Baso # (Auto) (0.0-0.2) K/uL Neutrophils % (Manual) (50-75) % Band Neutrophils % (0-2) % Lymphocytes % (Manual) (20-40) % Monocytes % (Manual) (0-10) % Toxic Granulation Platelet Estimate (NORMAL) Polychromasia Hypochromasia (manual) Anisocytosis (manual) Puncture Site pCO2 (35-45) mm/Hg pO2 (80-100) mm/Hg HCO3 (21-28) mmol/L ABG pH (7.35-7.45) ABG Total CO2 (22-28) mmol/L ABG O2 Saturation (95-98) % ABG Base Excess (-2.0-3.0) mmol/L Chepe Test ABG Potassium (3.6-5.2) mmol/L A-a O2 Difference mm/Hg Respiratory Index Sodium (132-148) mmol/l Chloride (98-107) mmol/L Glucose (65-105) mg/dl Lactate (0.7-2.1) mmol/L Vent Mode FiO2 % Potassium (3.6-5.2) mmol/L Carbon Dioxide (22-30) mmol/L Anion Gap (10-20) BUN (7-17) mg/dL Creatinine (0.7-1.2) mg/dL Est GFR ( Amer) Est GFR (Non-Af Amer) Random Glucose (65-105) mg/dL Calcium (8.6-10.4) mg/dl Phosphorus (2.5-4.5) mg/dL Magnesium (1.6-2.3) mg/dL Total Bilirubin (0.2-1.3) mg/dL AST (14-36) U/L ALT (9-52) U/L Alkaline Phosphatase (38-126) U/L Total Protein (6.3-8.3) g/dL Albumin (3.5-5.0) g/dL Globulin (2.2-3.9) gm/dL Albumin/Globulin Ratio (1.0-2.1) Arterial Blood Potassium (3.6-5.2) mmol/L Blood Type B POSITIVE Antibody Screen Negative Laboratory Results - last 24 hr 02/05/18 02/08/18 02/08/18 14:53 04:51 06:22 WBC 8.4 D RBC 3.87 Hgb 9.7 L D Hct 29.4 L MCV 75.9 L D MCH 24.9 L MCHC 32.8 L RDW 24.2 H Plt Count 79 L MPV 9.7 Neut % (Auto) 92.9 H Lymph % (Auto) 2.1 L [place] % (Auto) 4.7 Eos % (Auto) 0.0 Baso % (Auto) 0.3 Neut # (Auto) 7.8 H Lymph # (Auto) 0.2 L [place] # (Auto) 0.4 Eos # (Auto) 0.0 Baso # (Auto) 0.0 Neutrophils % (Manual) 90 H Band Neutrophils % 3 H Lymphocytes % (Manual) 2 L Monocytes % (Manual) 5 Toxic Granulation Present Platelet Estimate Decreased L Polychromasia Slight Hypochromasia (manual) Slight Anisocytosis (manual) Moderate Puncture Site R rad pCO2 50 H pO2 70 L HCO3 38.6 H ABG pH 7.54 H ABG Total CO2 44.3 H ABG O2 Saturation 97.2 ABG Base Excess 17.6 H Chepe Test Pos ABG Potassium 2.8 L A-a O2 Difference 581.0 Respiratory Index 8.3 Sodium 139.0 Chloride 101.0 Glucose 187 H Lactate 1.2 Vent Mode Hi flow FiO2 100.0 Potassium Carbon Dioxide Anion Gap BUN Creatinine Est GFR ( Amer) Est GFR (Non-Af Amer) Random Glucose Calcium Phosphorus Magnesium Total Bilirubin AST ALT Alkaline Phosphatase Total Protein Albumin Globulin Albumin/Globulin Ratio Arterial Blood Potassium 2.8 L Blood Type B POSITIVE Antibody Screen Negative 02/08/18 06:22 WBC RBC Hgb Hct MCV MCH MCHC RDW Plt Count MPV Neut % (Auto) Lymph % (Auto) [place] % (Auto) Eos % (Auto) Baso % (Auto) Neut # (Auto) Lymph # (Auto) [place] # (Auto) Eos # (Auto) Baso # (Auto) Neutrophils % (Manual) Band Neutrophils % Lymphocytes % (Manual) Monocytes % (Manual) Toxic Granulation Platelet Estimate Polychromasia Hypochromasia (manual) Anisocytosis (manual) Puncture Site pCO2 pO2 HCO3 ABG pH ABG Total CO2 ABG O2 Saturation ABG Base Excess Chepe Test ABG Potassium A-a O2 Difference Respiratory Index Sodium 141 Chloride 91 L Glucose Lactate Vent Mode FiO2 Potassium 3.0 L Carbon Dioxide 42 H* Anion Gap 11 BUN 41 H Creatinine 0.8 Est GFR ( Amer) > 60 Est GFR (Non-Af Amer) > 60 Random Glucose 189 H Calcium 9.4 Phosphorus 2.9 Magnesium 1.9 Total Bilirubin 1.3 AST 44 H D ALT 71 H D Alkaline Phosphatase 178 H D Total Protein 5.3 L Albumin 2.5 L Globulin 2.8 Albumin/Globulin Ratio 0.9 L Arterial Blood Potassium Blood Type Antibody Screen Fingerstick Blood Sugar Results: 166 Review of Systems - Review of Systems All systems: reviewed and no additional remarkable complaints except - Musculoskeletal Musculoskeletal: Back Pain Critical Care Progress Note - Nutrition Nutrition: Nutrition Category Date Time Status Diabetic [Consistent Carbohydrate] [DIET] Diets 02/07/18 Lunch Active Assessment/Plan (1) Acute respiratory failure with hypoxia Assessment and plan: Neuro: alert and oriented x 3 Pulm: acute hypoxemic respiratory failure requiring high flow oxygen at 100%. Etiology is uncertain. 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 Continue steroids for possible COPD exacerbating factors. Continue duonebs prn. CV: hemodynamically stable. norvasc and metoprolol for HTN. Hem: anemia of chronic disease. She has decompensated to the point that she currently is not eligible for chemotx as per her oncologist - Dr. Quan. Renal: urine output wnl Endo: no acute issues GI: regular diet ID: empiric therarpy with ampicillin and Cefepime for possible underlying pneumonia. DVT proph - lovenox GI proph - protonix Code status - full code Her prognosis is poor given and untreatable cancer and her current level of critical illness. Critical Care Time spent 35 minutes Multi-disciplinary rounds were performed with house staff, nursing, speech therapy, respiratory therapy, pharmacy and nutrition with integrated input from the primary team/attending and other consulting services. The documented time is cumulative and includes review of patient data/exams/labs/chart review and examination of the patient on rounds and throughout the day; time is exclusive of any procedures or teaching time. Current Visit: Yes Status: Acute
[2018-02-09] MEDS: AMPicillin 2 GM in Sodium Chloride 100 ML IVPB SCH ×3 (05:00→18:30)
[2018-02-09 05:58] LABS: ABG ALLEN TEST POS; ARTERIAL BLOOD GAS HCO3 31.1 mmol/L (21-28); ARTERIAL BLOOD GAS O2 SAT 99.5 % (95-98); ARTERIAL BLOOD GAS PCO2 42 mm/Hg (35-45); ARTERIAL BLOOD GAS PH 7.49 (7.35-7.45); ARTERIAL BLOOD GAS PO2 167 mm/Hg (80-100); ARTERIAL BLOOD GAS TCO2 33.3 mmol/L (22-28)
[2018-02-09] MEDS: Cefepime IV 1 gm in Dextrose 1 GM/50 ML BAG IVPB SCH ×3 (06:00→21:23)
[2018-02-09] MEDS: MethylPREDNISolone 40 mg Vial IVP SCH ×2 (06:22→17:46)
[2018-02-09 06:32] LABS: BASO % 0.4 % (0.0-2.0); HEMOGLOBIN 9.2 g/dL (11.0-16.0); LYMPH # 0.1 K/uL (1.0-4.3); MEAN CELL VOLUME 75.5 fL (81.0-99.0); MEAN CORPUSCULAR HEMOGLOBIN 24.5 pg (27.0-31.0); MEAN CORPUSCULAR HGB CONC 32.5 g/dL (33.0-37.0); MEAN PLATELET VOLUME 9.7 fL (7.2-11.7); MONO # 0.4 K/uL (0.0-0.8); MONO % 5.5 % (0.0-10.0); NEUT # 6.8 K/uL (1.8-7.0); NEUT % 92.1 % (50.0-75.0); NRBC % 0.3 % (0.0-2.0); PLATELET COUNT 83 K/uL (130-400); RBC 3.77 Mil/uL (3.80-5.20); RED CELL DISTRIBUTION WIDTH 24.6 % (11.5-14.5); WHITE BLOOD COUNT 7.4 K/uL (4.8-10.8)
[2018-02-09 06:51] LABS: ALB/GLOB RATIO 0.8 (1.0-2.1); ALBUMIN 2.4 g/dL (3.5-5.0); ALT/SGPT 66 U/L (9-52); AST/SGOT 40 U/L (14-36); BLOOD UREA NITROGEN 34 mg/dL (7-17); CALCIUM 9.4 mg/dl (8.6-10.4); GFR NON-AFRICAN AMERICAN > 60
[2018-02-09] MEDS: (Novolog) Insulin Aspart, Recombinant 100 u/ml 10 ml vial SC SCH ×4 (07:30→22:00)
[2018-02-09 08:14] LABS: ANISOCYTOSIS MODERATE; BANDS 7 % (0-2); LYMPHOCYTE 2 % (20-40); MONOCYTE 4 % (0-10); NEUTROPHIL 86 % (50-75); PLATELET ESTIMATE DECREASED (NORMAL); REACTIVE LYMPHOCYTES 1 % (0-0); TOTAL CELLS COUNTED 100
[2018-02-09 08:15] LABS: HYPOCHROMIC SLIGHT
--- NOTE | 2018-02-09 08:32 | CP.CCUPN ---
<Kianna Traceyla - Last Filed: 02/09/18 12:54> CCU Subjective - Physician Review Events Since Last Encounter (Free Text): PGY-3 IM ICU progress note. 02/09/18 12:33 Patient remains restless, on bipap. Saturating above 90% on 80%. This AM bipap was switched to high flow. As per family patient was not able to eat breakfast, and has not have bowel movement for 2 days. No fever or chills. no vomiting, no complains of cp, SOB is improving. Critical Care Time Spent (in minutes): 45 CCU Objective - Vital Signs / Intake & Output Vital Signs (Last 4 hours): Vital Signs On high flow at 100%. Pulse Resp BP Pulse Ox 02/09/18 08:23 24 02/09/18 08:00 106 H 33 H 97 02/09/18 07:30 95 H 31 H 159/73 H 100 02/09/18 07:00 98 H 28 H 100 02/09/18 06:30 94 H 27 H 144/62 100 02/09/18 06:00 101 H 31 H 100 02/09/18 05:44 94 H 02/09/18 05:30 105 H 25 H 100 02/09/18 05:00 104 H 29 H 100 02/09/18 04:44 104 H 26 H 155/73 H Intake and Output (Last 8hrs): Intake & Output 02/08/18 02/09/18 02/09/18 22:59 06:59 14:59 Intake Total 235 280 Output Total 590 490 60 Balance -355 -210 -60 Weight 132 lb Intake: Intake, IV Amount 150 250 Right Distal Port Port-A- 150 250 Cath Right Port-A-Cath 0 Oral 85 30 Output: Urine 490 490 60 Urethral (Soto) 490 490 60 Stool 100 0 0 Emesis 0 0 - Physical Exam Head: Positive for: Atraumatic, Normocephalic Extroacular Muscles: Positive for: EOMI Mouth: Positive for: Moist Mucous Membranes Respiratory/Chest: Positive for: Decreased Breath Sounds Cardiovascular: Positive for: Normal S1, S2, Tachycardic, Other (portacath R chest) Abdomen: Positive for: Normal Bowel Sounds. Negative for: Tenderness, Distention, Peritoneal Signs Upper Extremity: Positive for: Normal Inspection Lower Extremity: Positive for: Other (scds in place). Negative for: Edema Skin: Positive for: Warm, Dry Psychiatric: Positive for: Alert - Medications Active Medications: Active Medications Generic Name Dose Route Start Last Admin Trade Name Murtaza PRN Reason Stop Dose Admin Amlodipine Besylate 10 mg 02/06/18 09:11 02/06/18 09:40 Norvasc PO 10 mg DAILY MLILIE Administration Enoxaparin Sodium 40 mg 01/28/18 14:45 02/08/18 09:58 Lovenox SC 40 mg DAILY MILLIE Administration Furosemide 40 mg 02/02/18 18:00 02/07/18 18:22 Lasix IVP 40 mg BID MILLIE Administration Glimepiride 2 mg 01/28/18 18:00 02/08/18 17:17 Amaryl PO 2 mg BID MILLIE Administration Hydralazine HCl 50 mg 02/06/18 10:00 02/06/18 18:34 Apresoline PO Not Given TID MILLIE Cefepime HCl 1 gm in 50 mls @ 100 mls/hr 02/02/18 14:00 02/09/18 06:00 Maxipime Iv 1 Gm Premix IVPB 100 mls/hr Q8H MILLIE Administration Protocol Ampicillin 2 gm/ Sodium 100 mls @ 50 mls/hr 02/04/18 18:00 02/09/18 05:00 Chloride IVPB 50 mls/hr Q6 MILLIE Administration Protocol Insulin Aspart 0 unit 01/29/18 07:30 02/08/18 21:54 Novolog SC Not Given ACHS MILLIE Protocol Lisinopril 20 mg 02/06/18 10:00 02/06/18 09:40 Zestril PO 20 mg DAILY MILLIE Administration Methylprednisolone 40 mg 02/03/18 06:00 02/09/18 06:22 Solu-Medrol IVP 40 mg Q12H MILLIE Administration Metoprolol Succinate 50 mg 01/29/18 10:00 02/08/18 09:59 Toprol Xl PO 50 mg DAILY MILLIE Administration Multivitamins 1 tab 01/29/18 10:00 02/07/18 10:00 Hexavitamin PO Not Given DAILY MILLIE Pantoprazole Sodium 40 mg 01/29/18 10:00 02/08/18 09:59 Protonix Ec Tab PO 40 mg DAILY MILLIE Administration Pioglitazone HCl 30 mg 01/28/18 18:00 02/08/18 17:22 Actos PO 30 mg QPM MILLIE Administration Tiotropium Rush 18 mcg 01/30/18 08:00 02/08/18 07:33 Spiriva INH Not Given RQ24 MILLIE - Patient Studies Lab Studies: Lab Studies 02/09/18 02/09/18 02/09/18 Range/Units 06:20 06:20 05:27 WBC 7.4 (4.8-10.8) K/uL RBC 3.77 L (3.80-5.20) Mil/uL Hgb 9.2 L (11.0-16.0) g/dL Hct 28.5 L (34.0-47.0) % MCV 75.5 L (81.0-99.0) fL MCH 24.5 L (27.0-31.0) pg MCHC 32.5 L (33.0-37.0) g/dL RDW 24.6 H (11.5-14.5) % Plt Count 83 L (130-400) K/uL MPV 9.7 (7.2-11.7) fL Neut % (Auto) 92.1 H (50.0-75.0) % Lymph % (Auto) 2.0 L (20.0-40.0) % [place] % (Auto) 5.5 (0.0-10.0) % Eos % (Auto) 0.0 (0.0-4.0) % Baso % (Auto) 0.4 (0.0-2.0) % Neut # (Auto) 6.8 (1.8-7.0) K/uL Lymph # (Auto) 0.1 L (1.0-4.3) K/uL [place] # (Auto) 0.4 (0.0-0.8) K/uL Eos # (Auto) 0.0 (0.0-0.7) K/uL Baso # (Auto) 0.0 (0.0-0.2) K/uL Neutrophils % (Manual) 86 H (50-75) % Band Neutrophils % 7 H (0-2) % Lymphocytes % (Manual) 2 L (20-40) % Reactive Lymphs % 1 H (0-0) % Monocytes % (Manual) 4 (0-10) % Toxic Granulation Platelet Estimate Decreased L (NORMAL) Polychromasia Hypochromasia (manual) Slight Anisocytosis (manual) Moderate Puncture Site R rad pCO2 42 (35-45) mm/Hg pO2 167 H (80-100) mm/Hg HCO3 31.1 H (21-28) mmol/L ABG pH 7.49 H (7.35-7.45) ABG Total CO2 33.3 H (22-28) mmol/L ABG O2 Saturation 99.5 H (95-98) % ABG Base Excess 7.8 H (-2.0-3.0) mmol/L Chepe Test Pos ABG Potassium 3.0 L (3.6-5.2) mmol/L A-a O2 Difference 351.0 mm/Hg Respiratory Index 2.1 Sodium 141 145.0 (132-148) mmol/l Chloride 95 L 111.0 H (98-107) mmol/L Glucose 92 (65-105) mg/dl Lactate 1.1 (0.7-2.1) mmol/L Vent Mode Bipap FiO2 80.0 % Inspiratory BiPAP 12 Expiratory BiPAP 6 Potassium 4.0 (3.6-5.2) mmol/L Carbon Dioxide 40 H* (22-30) mmol/L Anion Gap 11 (10-20) BUN 34 H (7-17) mg/dL Creatinine 0.7 (0.7-1.2) mg/dL Est GFR ( Amer) > 60 Est GFR (Non-Af Amer) > 60 Random Glucose 122 H (65-105) mg/dL Calcium 9.4 (8.6-10.4) mg/dl Phosphorus 2.2 L (2.5-4.5) mg/dL Magnesium 2.0 (1.6-2.3) mg/dL Total Bilirubin 1.2 (0.2-1.3) mg/dL AST 40 H (14-36) U/L ALT 66 H (9-52) U/L Alkaline Phosphatase 184 H (38-126) U/L Total Protein 5.2 L (6.3-8.3) g/dL Albumin 2.4 L (3.5-5.0) g/dL Globulin 2.9 (2.2-3.9) gm/dL Albumin/Globulin Ratio 0.8 L (1.0-2.1) Arterial Blood Potassium 3.0 L (3.6-5.2) mmol/L 02/08/18 Range/Units 06:22 WBC (4.8-10.8) K/uL RBC (3.80-5.20) Mil/uL Hgb (11.0-16.0) g/dL Hct (34.0-47.0) % MCV (81.0-99.0) fL MCH (27.0-31.0) pg MCHC (33.0-37.0) g/dL RDW (11.5-14.5) % Plt Count (130-400) K/uL MPV (7.2-11.7) fL Neut % (Auto) (50.0-75.0) % Lymph % (Auto) (20.0-40.0) % [place] % (Auto) (0.0-10.0) % Eos % (Auto) (0.0-4.0) % Baso % (Auto) (0.0-2.0) % Neut # (Auto) (1.8-7.0) K/uL Lymph # (Auto) (1.0-4.3) K/uL [place] # (Auto) (0.0-0.8) K/uL Eos # (Auto) (0.0-0.7) K/uL Baso # (Auto) (0.0-0.2) K/uL Neutrophils % (Manual) 90 H (50-75) % Band Neutrophils % 3 H (0-2) % Lymphocytes % (Manual) 2 L (20-40) % Reactive Lymphs % (0-0) % Monocytes % (Manual) 5 (0-10) % Toxic Granulation Present Platelet Estimate Decreased L (NORMAL) Polychromasia Slight Hypochromasia (manual) Slight Anisocytosis (manual) Moderate Puncture Site pCO2 (35-45) mm/Hg pO2 (80-100) mm/Hg HCO3 (21-28) mmol/L ABG pH (7.35-7.45) ABG Total CO2 (22-28) mmol/L ABG O2 Saturation (95-98) % ABG Base Excess (-2.0-3.0) mmol/L Chepe Test ABG Potassium (3.6-5.2) mmol/L A-a O2 Difference mm/Hg Respiratory Index Sodium (132-148) mmol/l Chloride (98-107) mmol/L Glucose (65-105) mg/dl Lactate (0.7-2.1) mmol/L Vent Mode FiO2 % Inspiratory BiPAP Expiratory BiPAP Potassium (3.6-5.2) mmol/L Carbon Dioxide (22-30) mmol/L Anion Gap (10-20) BUN (7-17) mg/dL Creatinine (0.7-1.2) mg/dL Est GFR ( Amer) Est GFR (Non-Af Amer) Random Glucose (65-105) mg/dL Calcium (8.6-10.4) mg/dl Phosphorus (2.5-4.5) mg/dL Magnesium (1.6-2.3) mg/dL Total Bilirubin (0.2-1.3) mg/dL AST (14-36) U/L ALT (9-52) U/L Alkaline Phosphatase (38-126) U/L Total Protein (6.3-8.3) g/dL Albumin (3.5-5.0) g/dL Globulin (2.2-3.9) gm/dL Albumin/Globulin Ratio (1.0-2.1) Arterial Blood Potassium (3.6-5.2) mmol/L Laboratory Results - last 24 hr 02/08/18 02/09/18 02/09/18 06:22 05:27 06:20 WBC 7.4 RBC 3.77 L Hgb 9.2 L Hct 28.5 L MCV 75.5 L MCH 24.5 L MCHC 32.5 L RDW 24.6 H Plt Count 83 L MPV 9.7 Neut % (Auto) 92.1 H Lymph % (Auto) 2.0 L Kershaw % (Auto) 5.5 Eos % (Auto) 0.0 Baso % (Auto) 0.4 Neut # (Auto) 6.8 Lymph # (Auto) 0.1 L [place] # (Auto) 0.4 Eos # (Auto) 0.0 Baso # (Auto) 0.0 Neutrophils % (Manual) 90 H 86 H Band Neutrophils % 3 H 7 H Lymphocytes % (Manual) 2 L 2 L Reactive Lymphs % 1 H Monocytes % (Manual) 5 4 Toxic Granulation Present Platelet Estimate Decreased L Decreased L Polychromasia Slight Hypochromasia (manual) Slight Slight Anisocytosis (manual) Moderate Moderate Puncture Site R rad pCO2 42 pO2 167 H HCO3 31.1 H ABG pH 7.49 H ABG Total CO2 33.3 H ABG O2 Saturation 99.5 H ABG Base Excess 7.8 H Chepe Test Pos ABG Potassium 3.0 L A-a O2 Difference 351.0 Respiratory Index 2.1 Sodium 145.0 Chloride 111.0 H Glucose 92 Lactate 1.1 Vent Mode Bipap FiO2 80.0 Inspiratory BiPAP 12 Expiratory BiPAP 6 Potassium Carbon Dioxide Anion Gap BUN Creatinine Est GFR ( Amer) Est GFR (Non-Af Amer) Random Glucose Calcium Phosphorus Magnesium Total Bilirubin AST ALT Alkaline Phosphatase Total Protein Albumin Globulin Albumin/Globulin Ratio Arterial Blood Potassium 3.0 L 02/09/18 06:20 WBC RBC Hgb Hct MCV MCH MCHC RDW Plt Count MPV Neut % (Auto) Lymph % (Auto) Kershaw % (Auto) Eos % (Auto) Baso % (Auto) Neut # (Auto) Lymph # (Auto) [place] # (Auto) Eos # (Auto) Baso # (Auto) Neutrophils % (Manual) Band Neutrophils % Lymphocytes % (Manual) Reactive Lymphs % Monocytes % (Manual) Toxic Granulation Platelet Estimate Polychromasia Hypochromasia (manual) Anisocytosis (manual) Puncture Site pCO2 pO2 HCO3 ABG pH ABG Total CO2 ABG O2 Saturation ABG Base Excess Chepe Test ABG Potassium A-a O2 Difference Respiratory Index Sodium 141 Chloride 95 L Glucose Lactate Vent Mode FiO2 Inspiratory BiPAP Expiratory BiPAP Potassium 4.0 Carbon Dioxide 40 H* Anion Gap 11 BUN 34 H Creatinine 0.7 Est GFR ( Amer) > 60 Est GFR (Non-Af Amer) > 60 Random Glucose 122 H Calcium 9.4 Phosphorus 2.2 L Magnesium 2.0 Total Bilirubin 1.2 AST 40 H ALT 66 H Alkaline Phosphatase 184 H Total Protein 5.2 L Albumin 2.4 L Globulin 2.9 Albumin/Globulin Ratio 0.8 L Arterial Blood Potassium Fingerstick Blood Sugar Results: 110 Results Reviewed to Date: Yes Review of Systems - Review of Systems All systems: reviewed and no additional remarkable complaints except Critical Care Progress Note - Ventilator Checklist Head of Bed 30 Degrees: Yes - Extremities/Vascular Insertion Site: right sided chemo port Does the Patient need a Central Venous Catheter?: Yes Does the Patient have a Soto Catheter?: Yes Does the Patient need a Soto Catheter?: Yes Catheter Insertion Criteria: Need for accurate measurement of output in critically ill patient - Prophylaxis GI Prophylaxis GI: PPI - Prophylaxis DVT Prophylaxis DVT: Lovenox - Nutrition Nutrition: Nutrition Category Date Time Status Diabetic [Consistent Carbohydrate] [DIET] Diets 02/07/18 Lunch Active Assessment/Plan - Assessment and Plan (Free Text) Assessment: Patient is a 72 y/o with PMHx of HTN, DM, Anemia requiring multiple transfusions , L breast cancer s/p mastectomy, cervical cancer s/p hysterectomy, and newly diagnosed lymphoma and COPD who presented to the ED on 01/28/18 for increasing shortness of breath and was admitted for acute COPD exacerbation, CHF, lymphoma. Rapid Response was called while on the floor due to SpO2 of 87% and increasing lethargy. Critical care consulted for hypoxemia. Patient was transferred to the ICU, and her respiratory distress was managed with bipap. Patient had CT chest with negative PE. In addition, patient developed malignant htn, which was controlled. Plan: Neuro: Somnolent, awakens with verbal commands. Appears anxious at times. Pulm: acute hypoxemic respiratory failure requiring Bipap. Etiology is uncertain, likely COPD exacerbation. - Continue with solumedrol, duonebs q6 - Will adjust FIO2 on bipap/high flow to maintain O2 sat above 90%. - Continue spiriva and abx. Cardio: hemodynamically stable. continue with norvasc and metoprolol for HTN. Renal: Metabolic alkalosis likely due to lasix lasix is on hold Dehydration with elevated bun- will start gentle hydration NS@50cc/hr Phosphorus is being repleted Endo: Continue ISS, fingerstick achs and mod consistency carb diet. GI: Transaminitis- continue to trend down Consitpation- gave TN dulcolax ID: empiric therapy with ampicillin and Cefepime for possible underlying pneumonia/COPD exacerbation. Hem: anemia of chronic disease- hgb stable at 9. Thrombocytopenia- plt stable, no signs of bleeding. Heme/onc following DVT proph - Lovenox GI proph - protonix Discussed with the attending jordan Zamora pgy-3 - Date & Time Date: 02/09/18 Time: 12:25 <Marcy Lainez - Last Filed: 02/09/18 17:57> CCU Objective - Vital Signs / Intake & Output Vital Signs (Last 4 hours): Vital Signs Temp Pulse Resp BP Pulse Ox 02/09/18 16:00 98.7 F 94 H 29 H 100 02/09/18 15:54 92 H 34 H 178/73 H 94 L 02/09/18 15:00 97 H 36 H 96 02/09/18 14:30 94 H 26 H 158/86 H 94 L 02/09/18 14:00 84 30 H 95 02/09/18 13:58 31 H Intake and Output (Last 8hrs): Intake & Output 02/09/18 02/09/18 02/09/18 06:59 14:59 22:59 Intake Total 280 480 125.0 Output Total 490 360 80 Balance -210 120 45.0 Weight 132 lb Intake: Intake, IV Amount 250 200 85.0 Right Distal Port Port-A- 250 200 85.0 Cath Oral 30 280 40 Output: Urine 490 360 80 Urethral (Stoo) 490 360 80 Stool 0 0 0 Emesis 0 0 0 - Medications Active Medications: Active Medications Generic Name Dose Route Start Last Admin Trade Name Freq PRN Reason Stop Dose Admin Albuterol/Ipratropium 3 ml 02/09/18 14:00 02/09/18 13:56 Duoneb 3 Mg/0.5 Mg (3 Ml) Ud INH 3 ml RQ6 MILLIE Administration Amlodipine Besylate 10 mg 02/06/18 09:11 02/06/18 09:40 Norvasc PO 10 mg DAILY MILLIE Administration Enoxaparin Sodium 40 mg 01/28/18 14:45 02/09/18 11:19 Lovenox SC 40 mg DAILY MILLIE Administration Furosemide 40 mg 02/02/18 18:00 02/07/18 18:22 Lasix IVP 40 mg BID MILLIE Administration Hydralazine HCl 50 mg 02/06/18 10:00 02/06/18 18:34 Apresoline PO Not Given TID MILLIE Cefepime HCl 1 gm in 50 mls @ 100 mls/hr 02/02/18 14:00 02/09/18 14:00 Maxipime Iv 1 Gm Premix IVPB 100 mls/hr Q8H MILLIE Administration Protocol Ampicillin 2 gm/ Sodium 100 mls @ 50 mls/hr 02/04/18 18:00 02/09/18 13:00 Chloride IVPB 50 mls/hr Q6 MILLIE Administration Protocol Sodium Chloride 1,000 mls @ 50 mls/hr 02/09/18 10:30 02/09/18 11:20 Sodium Chloride 0.9% IV 50 mls/hr .Q20H MILLIE Administration Potassium Phosphate 15 mmole/ 255 mls @ 42.5 mls/hr 02/09/18 13:30 02/09/18 15:00 Sodium Chloride IVPB 02/09/18 19:29 42.5 mls/hr ONCE ONE Administration Insulin Aspart 0 unit 01/29/18 07:30 02/09/18 17:47 Novolog SC 2 units ACHS MILLIE Administration Protocol Lisinopril 20 mg 02/06/18 10:00 02/06/18 09:40 Zestril PO 20 mg DAILY MILLIE Administration Methylprednisolone 40 mg 02/03/18 06:00 02/09/18 17:46 Solu-Medrol IVP 40 mg Q12H MILLIE Administration Metoprolol Succinate 50 mg 01/29/18 10:00 02/09/18 11:19 Toprol Xl PO 50 mg DAILY MILLIE Administration Multivitamins 1 tab 01/29/18 10:00 02/07/18 10:00 Hexavitamin PO Not Given DAILY MILLIE Pantoprazole Sodium 40 mg 01/29/18 10:00 02/09/18 11:19 Protonix Ec Tab PO 40 mg DAILY MILLIE Administration Tiotropium Rush 18 mcg 01/30/18 08:00 02/09/18 13:56 Spiriva INH Not Given RQ24 MILLIE - Patient Studies Lab Studies: Lab Studies 02/09/18 02/09/18 02/09/18 Range/Units 11:24 07:24 06:20 WBC (4.8-10.8) K/uL RBC (3.80-5.20) Mil/uL Hgb (11.0-16.0) g/dL Hct (34.0-47.0) % MCV (81.0-99.0) fL MCH (27.0-31.0) pg MCHC (33.0-37.0) g/dL RDW (11.5-14.5) % Plt Count (130-400) K/uL MPV (7.2-11.7) fL Neut % (Auto) (50.0-75.0) % Lymph % (Auto) (20.0-40.0) % [place] % (Auto) (0.0-10.0) % Eos % (Auto) (0.0-4.0) % Baso % (Auto) (0.0-2.0) % Neut # (Auto) (1.8-7.0) K/uL Lymph # (Auto) (1.0-4.3) K/uL [place]haw # (Auto) (0.0-0.8) K/uL Eos # (Auto) (0.0-0.7) K/uL Baso # (Auto) (0.0-0.2) K/uL Neutrophils % (Manual) (50-75) % Band Neutrophils % (0-2) % Lymphocytes % (Manual) (20-40) % Reactive Lymphs % (0-0) % Monocytes % (Manual) (0-10) % Platelet Estimate (NORMAL) Hypochromasia (manual) Anisocytosis (manual) Puncture Site pCO2 (35-45) mm/Hg pO2 (80-100) mm/Hg HCO3 (21-28) mmol/L ABG pH (7.35-7.45) ABG Total CO2 (22-28) mmol/L ABG O2 Saturation (95-98) % ABG Base Excess (-2.0-3.0) mmol/L Chepe Test ABG Potassium (3.6-5.2) mmol/L A-a O2 Difference mm/Hg Respiratory Index Sodium 141 (132-148) mmol/l Chloride 95 L (98-107) mmol/L Glucose (65-105) mg/dl Lactate (0.7-2.1) mmol/L Vent Mode FiO2 % Inspiratory BiPAP Expiratory BiPAP Potassium 4.0 (3.6-5.2) mmol/L Carbon Dioxide 40 H* (22-30) mmol/L Anion Gap 11 (10-20) BUN 34 H (7-17) mg/dL Creatinine 0.7 (0.7-1.2) mg/dL Est GFR ( Amer) > 60 Est GFR (Non-Af Amer) > 60 POC Glucose (mg/dL) 235 H 124 H (65-110) mg/dL Random Glucose 122 H (65-105) mg/dL Calcium 9.4 (8.6-10.4) mg/dl Phosphorus 2.2 L (2.5-4.5) mg/dL Magnesium 2.0 (1.6-2.3) mg/dL Total Bilirubin 1.2 (0.2-1.3) mg/dL AST 40 H (14-36) U/L ALT 66 H (9-52) U/L Alkaline Phosphatase 184 H (38-126) U/L Total Protein 5.2 L (6.3-8.3) g/dL Albumin 2.4 L (3.5-5.0) g/dL Globulin 2.9 (2.2-3.9) gm/dL Albumin/Globulin Ratio 0.8 L (1.0-2.1) Arterial Blood Potassium (3.6-5.2) mmol/L 02/09/18 02/09/18 02/08/18 Range/Units 06:20 05:27 21:34 WBC 7.4 (4.8-10.8) K/uL RBC 3.77 L (3.80-5.20) Mil/uL Hgb 9.2 L (11.0-16.0) g/dL Hct 28.5 L (34.0-47.0) % MCV 75.5 L (81.0-99.0) fL MCH 24.5 L (27.0-31.0) pg MCHC 32.5 L (33.0-37.0) g/dL RDW 24.6 H (11.5-14.5) % Plt Count 83 L (130-400) K/uL MPV 9.7 (7.2-11.7) fL Neut % (Auto) 92.1 H (50.0-75.0) % Lymph % (Auto) 2.0 L (20.0-40.0) % [place]haw % (Auto) 5.5 (0.0-10.0) % Eos % (Auto) 0.0 (0.0-4.0) % Baso % (Auto) 0.4 (0.0-2.0) % Neut # (Auto) 6.8 (1.8-7.0) K/uL Lymph # (Auto) 0.1 L (1.0-4.3) K/uL [place]haw # (Auto) 0.4 (0.0-0.8) K/uL Eos # (Auto) 0.0 (0.0-0.7) K/uL Baso # (Auto) 0.0 (0.0-0.2) K/uL Neutrophils % (Manual) 86 H (50-75) % Band Neutrophils % 7 H (0-2) % Lymphocytes % (Manual) 2 L (20-40) % Reactive Lymphs % 1 H (0-0) % Monocytes % (Manual) 4 (0-10) % Platelet Estimate Decreased L (NORMAL) Hypochromasia (manual) Slight Anisocytosis (manual) Moderate Puncture Site R rad pCO2 42 (35-45) mm/Hg pO2 167 H (80-100) mm/Hg HCO3 31.1 H (21-28) mmol/L ABG pH 7.49 H (7.35-7.45) ABG Total CO2 33.3 H (22-28) mmol/L ABG O2 Saturation 99.5 H (95-98) % ABG Base Excess 7.8 H (-2.0-3.0) mmol/L Chepe Test Pos ABG Potassium 3.0 L (3.6-5.2) mmol/L A-a O2 Difference 351.0 mm/Hg Respiratory Index 2.1 Sodium 145.0 (132-148) mmol/l Chloride 111.0 H (98-107) mmol/L Glucose 92 (65-105) mg/dl Lactate 1.1 (0.7-2.1) mmol/L Vent Mode Bipap FiO2 80.0 % Inspiratory BiPAP 12 Expiratory BiPAP 6 Potassium (3.6-5.2) mmol/L Carbon Dioxide (22-30) mmol/L Anion Gap (10-20) BUN (7-17) mg/dL Creatinine (0.7-1.2) mg/dL Est GFR ( Amer) Est GFR (Non-Af Amer) POC Glucose (mg/dL) 110 (65-110) mg/dL Random Glucose (65-105) mg/dL Calcium (8.6-10.4) mg/dl Phosphorus (2.5-4.5) mg/dL Magnesium (1.6-2.3) mg/dL Total Bilirubin (0.2-1.3) mg/dL AST (14-36) U/L ALT (9-52) U/L Alkaline Phosphatase (38-126) U/L Total Protein (6.3-8.3) g/dL Albumin (3.5-5.0) g/dL Globulin (2.2-3.9) gm/dL Albumin/Globulin Ratio (1.0-2.1) Arterial Blood Potassium 3.0 L (3.6-5.2) mmol/L 02/08/18 02/08/18 02/08/18 Range/Units 16:04 11:30 07:11 WBC (4.8-10.8) K/uL RBC (3.80-5.20) Mil/uL Hgb (11.0-16.0) g/dL Hct (34.0-47.0) % MCV (81.0-99.0) fL MCH (27.0-31.0) pg MCHC (33.0-37.0) g/dL RDW (11.5-14.5) % Plt Count (130-400) K/uL MPV (7.2-11.7) fL Neut % (Auto) (50.0-75.0) % Lymph % (Auto) (20.0-40.0) % [place] % (Auto) (0.0-10.0) % Eos % (Auto) (0.0-4.0) % Baso % (Auto) (0.0-2.0) % Neut # (Auto) (1.8-7.0) K/uL Lymph # (Auto) (1.0-4.3) K/uL [place]haw # (Auto) (0.0-0.8) K/uL Eos # (Auto) (0.0-0.7) K/uL Baso # (Auto) (0.0-0.2) K/uL Neutrophils % (Manual) (50-75) % Band Neutrophils % (0-2) % Lymphocytes % (Manual) (20-40) % Reactive Lymphs % (0-0) % Monocytes % (Manual) (0-10) % Platelet Estimate (NORMAL) Hypochromasia (manual) Anisocytosis (manual) Puncture Site pCO2 (35-45) mm/Hg pO2 (80-100) mm/Hg HCO3 (21-28) mmol/L ABG pH (7.35-7.45) ABG Total CO2 (22-28) mmol/L ABG O2 Saturation (95-98) % ABG Base Excess (-2.0-3.0) mmol/L Chepe Test ABG Potassium (3.6-5.2) mmol/L A-a O2 Difference mm/Hg Respiratory Index Sodium (132-148) mmol/l Chloride (98-107) mmol/L Glucose (65-105) mg/dl Lactate (0.7-2.1) mmol/L Vent Mode FiO2 % Inspiratory BiPAP Expiratory BiPAP Potassium (3.6-5.2) mmol/L Carbon Dioxide (22-30) mmol/L Anion Gap (10-20) BUN (7-17) mg/dL Creatinine (0.7-1.2) mg/dL Est GFR ( Amer) Est GFR (Non-Af Amer) POC Glucose (mg/dL) 166 H 195 H 200 H (65-110) mg/dL Random Glucose (65-105) mg/dL Calcium (8.6-10.4) mg/dl Phosphorus (2.5-4.5) mg/dL Magnesium (1.6-2.3) mg/dL Total Bilirubin (0.2-1.3) mg/dL AST (14-36) U/L ALT (9-52) U/L Alkaline Phosphatase (38-126) U/L Total Protein (6.3-8.3) g/dL Albumin (3.5-5.0) g/dL Globulin (2.2-3.9) gm/dL Albumin/Globulin Ratio (1.0-2.1) Arterial Blood Potassium (3.6-5.2) mmol/L 02/07/18 02/07/18 02/07/18 Range/Units 21:29 16:00 11:41 WBC (4.8-10.8) K/uL RBC (3.80-5.20) Mil/uL Hgb (11.0-16.0) g/dL Hct (34.0-47.0) % MCV (81.0-99.0) fL MCH (27.0-31.0) pg MCHC (33.0-37.0) g/dL RDW (11.5-14.5) % Plt Count (130-400) K/uL MPV (7.2-11.7) fL Neut % (Auto) (50.0-75.0) % Lymph % (Auto) (20.0-40.0) % [place] % (Auto) (0.0-10.0) % Eos % (Auto) (0.0-4.0) % Baso % (Auto) (0.0-2.0) % Neut # (Auto) (1.8-7.0) K/uL Lymph # (Auto) (1.0-4.3) K/uL [place] # (Auto) (0.0-0.8) K/uL Eos # (Auto) (0.0-0.7) K/uL Baso # (Auto) (0.0-0.2) K/uL Neutrophils % (Manual) (50-75) % Band Neutrophils % (0-2) % Lymphocytes % (Manual) (20-40) % Reactive Lymphs % (0-0) % Monocytes % (Manual) (0-10) % Platelet Estimate (NORMAL) Hypochromasia (manual) Anisocytosis (manual) Puncture Site pCO2 (35-45) mm/Hg pO2 (80-100) mm/Hg HCO3 (21-28) mmol/L ABG pH (7.35-7.45) ABG Total CO2 (22-28) mmol/L ABG O2 Saturation (95-98) % ABG Base Excess (-2.0-3.0) mmol/L Chepe Test ABG Potassium (3.6-5.2) mmol/L A-a O2 Difference mm/Hg Respiratory Index Sodium (132-148) mmol/l Chloride (98-107) mmol/L Glucose (65-105) mg/dl Lactate (0.7-2.1) mmol/L Vent Mode FiO2 % Inspiratory BiPAP Expiratory BiPAP Potassium (3.6-5.2) mmol/L Carbon Dioxide (22-30) mmol/L Anion Gap (10-20) BUN (7-17) mg/dL Creatinine (0.7-1.2) mg/dL Est GFR ( Amer) Est GFR (Non-Af Amer) POC Glucose (mg/dL) 204 H 213 H 217 H (65-110) mg/dL Random Glucose (65-105) mg/dL Calcium (8.6-10.4) mg/dl Phosphorus (2.5-4.5) mg/dL Magnesium (1.6-2.3) mg/dL Total Bilirubin (0.2-1.3) mg/dL AST (14-36) U/L ALT (9-52) U/L Alkaline Phosphatase (38-126) U/L Total Protein (6.3-8.3) g/dL Albumin (3.5-5.0) g/dL Globulin (2.2-3.9) gm/dL Albumin/Globulin Ratio (1.0-2.1) Arterial Blood Potassium (3.6-5.2) mmol/L 02/07/18 02/06/18 Range/Units 07:26 21:08 WBC (4.8-10.8) K/uL RBC (3.80-5.20) Mil/uL Hgb (11.0-16.0) g/dL Hct (34.0-47.0) % MCV (81.0-99.0) fL MCH (27.0-31.0) pg MCHC (33.0-37.0) g/dL RDW (11.5-14.5) % Plt Count (130-400) K/uL MPV (7.2-11.7) fL Neut % (Auto) (50.0-75.0) % Lymph % (Auto) (20.0-40.0) % [place] % (Auto) (0.0-10.0) % Eos % (Auto) (0.0-4.0) % Baso % (Auto) (0.0-2.0) % Neut # (Auto) (1.8-7.0) K/uL Lymph # (Auto) (1.0-4.3) K/uL [place] # (Auto) (0.0-0.8) K/uL Eos # (Auto) (0.0-0.7) K/uL Baso # (Auto) (0.0-0.2) K/uL Neutrophils % (Manual) (50-75) % Band Neutrophils % (0-2) % Lymphocytes % (Manual) (20-40) % Reactive Lymphs % (0-0) % Monocytes % (Manual) (0-10) % Platelet Estimate (NORMAL) Hypochromasia (manual) Anisocytosis (manual) Puncture Site pCO2 (35-45) mm/Hg pO2 (80-100) mm/Hg HCO3 (21-28) mmol/L ABG pH (7.35-7.45) ABG Total CO2 (22-28) mmol/L ABG O2 Saturation (95-98) % ABG Base Excess (-2.0-3.0) mmol/L Chepe Test ABG Potassium (3.6-5.2) mmol/L A-a O2 Difference mm/Hg Respiratory Index Sodium (132-148) mmol/l Chloride (98-107) mmol/L Glucose (65-105) mg/dl Lactate (0.7-2.1) mmol/L Vent Mode FiO2 % Inspiratory BiPAP Expiratory BiPAP Potassium (3.6-5.2) mmol/L Carbon Dioxide (22-30) mmol/L Anion Gap (10-20) BUN (7-17) mg/dL Creatinine (0.7-1.2) mg/dL Est GFR ( Amer) Est GFR (Non-Af Amer) POC Glucose (mg/dL) 219 H 177 H (65-110) mg/dL Random Glucose (65-105) mg/dL Calcium (8.6-10.4) mg/dl Phosphorus (2.5-4.5) mg/dL Magnesium (1.6-2.3) mg/dL Total Bilirubin (0.2-1.3) mg/dL AST (14-36) U/L ALT (9-52) U/L Alkaline Phosphatase (38-126) U/L Total Protein (6.3-8.3) g/dL Albumin (3.5-5.0) g/dL Globulin (2.2-3.9) gm/dL Albumin/Globulin Ratio (1.0-2.1) Arterial Blood Potassium (3.6-5.2) mmol/L Laboratory Results - last 24 hr 02/06/18 02/07/18 02/07/18 21:08 07:26 11:41 WBC RBC Hgb Hct MCV MCH MCHC RDW Plt Count MPV Neut % (Auto) Lymph % (Auto) [place] % (Auto) Eos % (Auto) Baso % (Auto) Neut # (Auto) Lymph # (Auto) [place] # (Auto) Eos # (Auto) Baso # (Auto) Neutrophils % (Manual) Band Neutrophils % Lymphocytes % (Manual) Reactive Lymphs % Monocytes % (Manual) Platelet Estimate Hypochromasia (manual) Anisocytosis (manual) Puncture Site pCO2 pO2 HCO3 ABG pH ABG Total CO2 ABG O2 Saturation ABG Base Excess [place] Test ABG Potassium A-a O2 Difference Respiratory Index Sodium Chloride Glucose Lactate Vent Mode FiO2 Inspiratory BiPAP Expiratory BiPAP Potassium Carbon Dioxide Anion Gap BUN Creatinine Est GFR ( Amer) Est GFR (Non-Af Amer) POC Glucose (mg/dL) 177 H 219 H 217 H Random Glucose Calcium Phosphorus Magnesium Total Bilirubin AST ALT Alkaline Phosphatase Total Protein Albumin Globulin Albumin/Globulin Ratio Arterial Blood Potassium 02/07/18 02/07/18 02/08/18 16:00 21:29 07:11 WBC RBC Hgb Hct MCV MCH MCHC RDW Plt Count MPV Neut % (Auto) Lymph % (Auto) [place] % (Auto) Eos % (Auto) Baso % (Auto) Neut # (Auto) Lymph # (Auto) [place] # (Auto) Eos # (Auto) Baso # (Auto) Neutrophils % (Manual) Band Neutrophils % Lymphocytes % (Manual) Reactive Lymphs % Monocytes % (Manual) Platelet Estimate Hypochromasia (manual) Anisocytosis (manual) Puncture Site pCO2 pO2 HCO3 ABG pH ABG Total CO2 ABG O2 Saturation ABG Base Excess [place] Test ABG Potassium A-a O2 Difference Respiratory Index Sodium Chloride Glucose Lactate Vent Mode FiO2 Inspiratory BiPAP Expiratory BiPAP Potassium Carbon Dioxide Anion Gap BUN Creatinine Est GFR ( Amer) Est GFR (Non-Af Amer) POC Glucose (mg/dL) 213 H 204 H 200 H Random Glucose Calcium Phosphorus Magnesium Total Bilirubin AST ALT Alkaline Phosphatase Total Protein Albumin Globulin Albumin/Globulin Ratio Arterial Blood Potassium 02/08/18 02/08/18 02/08/18 11:30 16:04 21:34 WBC RBC Hgb Hct MCV MCH MCHC RDW Plt Count MPV Neut % (Auto) Lymph % (Auto) [place] % (Auto) Eos % (Auto) Baso % (Auto) Neut # (Auto) Lymph # (Auto) [place] # (Auto) Eos # (Auto) Baso # (Auto) Neutrophils % (Manual) Band Neutrophils % Lymphocytes % (Manual) Reactive Lymphs % Monocytes % (Manual) Platelet Estimate Hypochromasia (manual) Anisocytosis (manual) Puncture Site pCO2 pO2 HCO3 ABG pH ABG Total CO2 ABG O2 Saturation ABG Base Excess [place] Test ABG Potassium A-a O2 Difference Respiratory Index Sodium Chloride Glucose Lactate Vent Mode FiO2 Inspiratory BiPAP Expiratory BiPAP Potassium Carbon Dioxide Anion Gap BUN Creatinine Est GFR ( Amer) Est GFR (Non-Af Amer) POC Glucose (mg/dL) 195 H 166 H 110 Random Glucose Calcium Phosphorus Magnesium Total Bilirubin AST ALT Alkaline Phosphatase Total Protein Albumin Globulin Albumin/Globulin Ratio Arterial Blood Potassium 02/09/18 02/09/18 02/09/18 05:27 06:20 06:20 WBC 7.4 RBC 3.77 L Hgb 9.2 L Hct 28.5 L MCV 75.5 L MCH 24.5 L MCHC 32.5 L RDW 24.6 H Plt Count 83 L MPV 9.7 Neut % (Auto) 92.1 H Lymph % (Auto) 2.0 L [place] % (Auto) 5.5 Eos % (Auto) 0.0 Baso % (Auto) 0.4 Neut # (Auto) 6.8 Lymph # (Auto) 0.1 L [place] # (Auto) 0.4 Eos # (Auto) 0.0 Baso # (Auto) 0.0 Neutrophils % (Manual) 86 H Band Neutrophils % 7 H Lymphocytes % (Manual) 2 L Reactive Lymphs % 1 H Monocytes % (Manual) 4 Platelet Estimate Decreased L Hypochromasia (manual) Slight Anisocytosis (manual) Moderate Puncture Site R rad pCO2 42 pO2 167 H HCO3 31.1 H ABG pH 7.49 H ABG Total CO2 33.3 H ABG O2 Saturation 99.5 H ABG Base Excess 7.8 H [place] Test Pos ABG Potassium 3.0 L A-a O2 Difference 351.0 Respiratory Index 2.1 Sodium 145.0 141 Chloride 111.0 H 95 L Glucose 92 Lactate 1.1 Vent Mode Bipap FiO2 80.0 Inspiratory BiPAP 12 Expiratory BiPAP 6 Potassium 4.0 Carbon Dioxide 40 H* Anion Gap 11 BUN 34 H Creatinine 0.7 Est GFR ( Amer) > 60 Est GFR (Non-Af Amer) > 60 POC Glucose (mg/dL) Random Glucose 122 H Calcium 9.4 Phosphorus 2.2 L Magnesium 2.0 Total Bilirubin 1.2 AST 40 H ALT 66 H Alkaline Phosphatase 184 H Total Protein 5.2 L Albumin 2.4 L Globulin 2.9 Albumin/Globulin Ratio 0.8 L Arterial Blood Potassium 3.0 L 02/09/18 02/09/18 07:24 11:24 WBC RBC Hgb Hct MCV MCH MCHC RDW Plt Count MPV Neut % (Auto) Lymph % (Auto) [place] % (Auto) Eos % (Auto) Baso % (Auto) Neut # (Auto) Lymph # (Auto) [place] # (Auto) Eos # (Auto) Baso # (Auto) Neutrophils % (Manual) Band Neutrophils % Lymphocytes % (Manual) Reactive Lymphs % Monocytes % (Manual) Platelet Estimate Hypochromasia (manual) Anisocytosis (manual) Puncture Site pCO2 pO2 HCO3 ABG pH ABG Total CO2 ABG O2 Saturation ABG Base Excess [place] Test ABG Potassium A-a O2 Difference Respiratory Index Sodium Chloride Glucose Lactate Vent Mode FiO2 Inspiratory BiPAP Expiratory BiPAP Potassium Carbon Dioxide Anion Gap BUN Creatinine Est GFR ( Amer) Est GFR (Non-Af Amer) POC Glucose (mg/dL) 124 H 235 H Random Glucose Calcium Phosphorus Magnesium Total Bilirubin AST ALT Alkaline Phosphatase Total Protein Albumin Globulin Albumin/Globulin Ratio Arterial Blood Potassium Critical Care Progress Note - Nutrition Nutrition: Nutrition Category Date Time Status Diabetic [Consistent Carbohydrate] [DIET] Diets 02/07/18 Lunch Active Attending/Attestation - Attestation I have personally seen and examined this patient.: Yes I have fully participated in the care of the patient.: Yes I have reviewed all pertinent clinical information: Yes Notes (Text): 02/09/18 17:57 Patient with multiple cancers. Metastatic lesions. Admitted with acute respiratory failure. Patient chest x-ray looks clear. Patient is on high flow oxygen. CAT scan of the lungs no evidence of PE. But able to maintain the oxygen saturation. Overall prognosis is very poor. Continue to monitor. Discussed with the family
[2018-02-09] MEDS: Pantoprazole 40 mg EC Tab PO SCH (11:19)
[2018-02-09] MEDS: Enoxaparin 40 mg Syringe SC SCH (11:19)
[2018-02-09] MEDS: Metoprolol Succinate 50 mg XL Tab PO SCH (11:19)
[2018-02-09] MEDS: Sodium Chloride 0.9% 1,000 ML IV SCH (11:20)
[2018-02-09] MEDS ORDERED: Potassium Phosphate 15 MMOLE in Sodium Chloride 0.9% 250 ML IVPB ONE (13:30)
[2018-02-09] MEDS: Tiotropium 18 mcg Cap For Inhalation INH SCH (13:56)
[2018-02-09] MEDS: Albuterol-Ipratrop 3 mg / 0.5 (3 ml) UD INH SCH ×2 (13:56→19:50)
--- NOTE | 2018-02-09 19:03 | CP.PCM.PN ---
Subjective - Date & Time of Evaluation Date of Evaluation: 02/09/18 Time of Evaluation: 09:15 - Subjective Subjective: clinically same Objective - Vital Signs/Intake and Output Vital Signs (last 24 hours): Temp Pulse Resp BP Pulse Ox 98.7 F 94 H 30 H 178/73 H 100 02/09/18 16:00 02/09/18 16:00 02/09/18 16:50 02/09/18 15:54 02/09/18 16:00 Intake and Output: 02/09/18 02/10/18 18:59 06:59 Intake Total 605.0 Output Total 440 Balance 165.0 - Medications Medications: Current Medications Albuterol/Ipratropium (Duoneb 3 Mg/0.5 Mg (3 Ml) Ud) 3 ml INH RQ6 [facility] Last Admin: 02/09/18 13:56 Dose: 3 ml Amlodipine Besylate (Norvasc) 10 mg PO DAILY [facility] Last Admin: 02/06/18 09:40 Dose: 10 mg Enoxaparin Sodium (Lovenox) 40 mg SC DAILY [facility] Last Admin: 02/09/18 11:19 Dose: 40 mg Furosemide (Lasix) 40 mg IVP BID [facility] Last Admin: 02/07/18 18:22 Dose: 40 mg Hydralazine HCl (Apresoline) 50 mg PO TID [facility] Last Admin: 02/06/18 18:34 Dose: Not Given Cefepime HCl (Maxipime Iv 1 Gm Premix) 1 gm in 50 mls @ 100 mls/hr IVPB Q8H [facility] PRN Reason: Protocol Last Admin: 02/09/18 14:00 Dose: 100 mls/hr Ampicillin 2 gm/ Sodium (Chloride) 100 mls @ 50 mls/hr IVPB Q6 [facility] PRN Reason: Protocol Last Admin: 02/09/18 13:00 Dose: 50 mls/hr Sodium Chloride (Sodium Chloride 0.9%) 1,000 mls @ 50 mls/hr IV .Q20H [facility] Last Admin: 02/09/18 11:20 Dose: 50 mls/hr Potassium Phosphate 15 mmole/ (Sodium Chloride) 255 mls @ 42.5 mls/hr IVPB ONCE ONE Stop: 02/09/18 19:29 Last Admin: 02/09/18 15:00 Dose: 42.5 mls/hr Insulin Aspart (Novolog) 0 unit SC ACHS [facility] PRN Reason: Protocol Last Admin: 02/09/18 17:00 Dose: 2 units Lisinopril (Zestril) 20 mg PO DAILY [facility] Last Admin: 02/06/18 09:40 Dose: 20 mg Methylprednisolone (Solu-Medrol) 40 mg IVP Q12H [facility] Last Admin: 02/09/18 17:46 Dose: 40 mg Metoprolol Succinate (Toprol Xl) 50 mg PO DAILY [facility] Last Admin: 02/09/18 11:19 Dose: 50 mg Multivitamins (Hexavitamin) 1 tab PO DAILY [facility] Last Admin: 02/07/18 10:00 Dose: Not Given Pantoprazole Sodium (Protonix Ec Tab) 40 mg PO DAILY [facility] Last Admin: 02/09/18 11:19 Dose: 40 mg Tiotropium [place] (Spiriva) 18 mcg INH RQ24 [facility] Last Admin: 02/09/18 13:56 Dose: Not Given - Labs Labs: 02/09/18 06:20 02/09/18 06:20 PT 15.9 SECONDS (9.7-12.2) H 01/28/18 10:14 INR 1.5 01/28/18 10:14 APTT 30 SECONDS (21-34) 01/28/18 10:14 - Constitutional Appears: Well - Head Exam Head Exam: ATRAUMATIC, NORMAL INSPECTION, NORMOCEPHALIC - Eye Exam Eye Exam: EOMI, Normal appearance, PERRL Pupil Exam: NORMAL ACCOMODATION, PERRL - ENT Exam ENT Exam: Mucous Membranes Moist, Normal Exam - Neck Exam Neck Exam: Full ROM, Normal Inspection. absent: Lymphadenopathy - Respiratory Exam Respiratory Exam: Decreased Breath Sounds - Cardiovascular Exam Cardiovascular Exam: REGULAR RHYTHM, +S1, +S2 - GI/Abdominal Exam GI & Abdominal Exam: Soft, Diminished Bowel Sounds - Rectal Exam Rectal Exam: Deferred
[2018-02-10] MEDS: AMPicillin 2 GM in Sodium Chloride 100 ML IVPB SCH ×4 (01:58→18:15)
[2018-02-10] MEDS: Albuterol-Ipratrop 3 mg / 0.5 (3 ml) UD INH SCH ×4 (01:58→21:35)
[2018-02-10 05:31] LABS: ABG ALLEN TEST POS; ARTERIAL BLOOD GAS HCO3 33.9 mmol/L (21-28); ARTERIAL BLOOD GAS O2 SAT 98.1 % (95-98); ARTERIAL BLOOD GAS PCO2 51 mm/Hg (35-45); ARTERIAL BLOOD GAS PH 7.47 (7.35-7.45); ARTERIAL BLOOD GAS PO2 89 mm/Hg (80-100); ARTERIAL BLOOD GAS TCO2 38.7 mmol/L (22-28)
[2018-02-10 06:27] LABS: BASO % 0.3 % (0.0-2.0); HEMOGLOBIN 8.1 g/dL (11.0-16.0); LYMPH # 0.1 K/uL (1.0-4.3); LYMPH % 2.6 % (20.0-40.0); MEAN CELL VOLUME 76.8 fL (81.0-99.0); MEAN CORPUSCULAR HEMOGLOBIN 25.1 pg (27.0-31.0); MEAN CORPUSCULAR HGB CONC 32.7 g/dL (33.0-37.0); MEAN PLATELET VOLUME 10.1 fL (7.2-11.7); MONO # 0.4 K/uL (0.0-0.8); NEUT # 4.7 K/uL (1.8-7.0); NEUT % 90.1 % (50.0-75.0); NRBC % 0.1 % (0.0-2.0); PLATELET COUNT 74 K/uL (130-400); RBC 3.24 Mil/uL (3.80-5.20); RED CELL DISTRIBUTION WIDTH 24.6 % (11.5-14.5); WHITE BLOOD COUNT 5.2 K/uL (4.8-10.8)
[2018-02-10] MEDS: Cefepime IV 1 gm in Dextrose 1 GM/50 ML BAG IVPB SCH ×3 (06:33→22:32)
[2018-02-10 06:38] LABS: ALB/GLOB RATIO 0.8 (1.0-2.1); ALBUMIN 2.2 g/dL (3.5-5.0); ALT/SGPT 56 U/L (9-52); AST/SGOT 19 U/L (14-36); BLOOD UREA NITROGEN 34 mg/dL (7-17); GFR NON-AFRICAN AMERICAN > 60
[2018-02-10] MEDS: Sodium Chloride 0.9% 1,000 ML IV SCH ×2 (06:50→16:45)
[2018-02-10] MEDS: MethylPREDNISolone 40 mg Vial IVP SCH ×2 (06:52→18:18)
[2018-02-10] MEDS: Tiotropium 18 mcg Cap For Inhalation INH SCH (07:43)
[2018-02-10] MEDS: (Novolog) Insulin Aspart, Recombinant 100 u/ml 10 ml vial SC SCH ×4 (08:16→22:31)
[2018-02-10 08:30] LABS: ANISOCYTOSIS SLIGHT; LYMPHOCYTE 4 % (20-40); MONOCYTE 5 % (0-10); NEUTROPHIL 91 % (50-75); PLATELET ESTIMATE DECREASED (NORMAL); POIKILOCYTOSIS SLIGHT; TOTAL CELLS COUNTED 100
[2018-02-10 08:34] LABS: HYPOCHROMIC MODERATE; MICROCYTOSIS SLIGHT; OVALOCYTES SLIGHT; TARGET CELLS SLIGHT
[2018-02-10] MEDS: Metoprolol Succinate 50 mg XL Tab PO SCH (09:32)
[2018-02-10] MEDS: Enoxaparin 40 mg Syringe SC SCH (09:32)
[2018-02-10] MEDS: Pantoprazole 40 mg EC Tab PO SCH (09:32)
--- NOTE | 2018-02-10 10:14 | CP.PCM.PN ---
Subjective - Date & Time of Evaluation Date of Evaluation: 02/10/18 Time of Evaluation: 07:00 - Subjective Subjective: Patient with multiple cancers. Metastatic lesions. Admitted with acute respiratory failure AFEBRILE LETHARGIC NAD Objective - Vital Signs/Intake and Output Vital Signs (last 24 hours): Temp Pulse Resp BP Pulse Ox 98.3 F 82 20 145/74 96 02/10/18 04:00 02/10/18 07:00 02/10/18 07:46 02/10/18 06:50 02/10/18 07:00 Intake and Output: 02/10/18 02/10/18 06:59 18:59 Intake Total 1315.0 Output Total 705 Balance 610.0 - Medications Medications: Current Medications Albuterol/Ipratropium (Duoneb 3 Mg/0.5 Mg (3 Ml) Ud) 3 ml INH RQ6 [facility] Last Admin: 02/10/18 07:43 Dose: 3 ml Amlodipine Besylate (Norvasc) 10 mg PO DAILY [facility] Last Admin: 02/06/18 09:40 Dose: 10 mg Enoxaparin Sodium (Lovenox) 40 mg SC DAILY [facility] Last Admin: 02/10/18 09:32 Dose: 40 mg Furosemide (Lasix) 40 mg IVP BID [facility] Last Admin: 02/07/18 18:22 Dose: 40 mg Hydralazine HCl (Apresoline) 50 mg PO TID [facility] Last Admin: 02/06/18 18:34 Dose: Not Given Cefepime HCl (Maxipime Iv 1 Gm Premix) 1 gm in 50 mls @ 100 mls/hr IVPB Q8H [facility] PRN Reason: Protocol Last Admin: 02/10/18 06:33 Dose: 100 mls/hr Ampicillin 2 gm/ Sodium (Chloride) 100 mls @ 50 mls/hr IVPB Q6 [facility] PRN Reason: Protocol Last Admin: 02/10/18 06:52 Dose: 50 mls/hr Sodium Chloride (Sodium Chloride 0.9%) 1,000 mls @ 50 mls/hr IV .Q20H [facility] Last Admin: 02/10/18 06:50 Dose: Not Given Insulin Aspart (Novolog) 0 unit SC ACHS [facility] PRN Reason: Protocol Last Admin: 02/10/18 08:16 Dose: 3 units Lisinopril (Zestril) 20 mg PO DAILY [facility] Last Admin: 02/06/18 09:40 Dose: 20 mg Methylprednisolone (Solu-Medrol) 40 mg IVP Q12H [facility] Last Admin: 02/10/18 06:52 Dose: 40 mg Metoprolol Succinate (Toprol Xl) 50 mg PO DAILY [facility] Last Admin: 02/10/18 09:32 Dose: 50 mg Multivitamins (Hexavitamin) 1 tab PO DAILY [facility] Last Admin: 02/07/18 10:00 Dose: Not Given Pantoprazole Sodium (Protonix Ec Tab) 40 mg PO DAILY [facility] Last Admin: 02/10/18 09:32 Dose: 40 mg Tiotropium [place] (Spiriva) 18 mcg INH RQ24 [facility] Last Admin: 02/10/18 07:43 Dose: 18 mcg - Labs Labs: 02/10/18 06:16 02/10/18 06:15 PT 15.9 SECONDS (9.7-12.2) H 01/28/18 10:14 INR 1.5 01/28/18 10:14 APTT 30 SECONDS (21-34) 01/28/18 10:14 - Constitutional Appears: Non-toxic, Chronically Ill - Head Exam Head Exam: NORMOCEPHALIC - Eye Exam Eye Exam: PERRL. absent: Scleral icterus - ENT Exam ENT Exam: Mucous Membranes Dry - Neck Exam Neck Exam: absent: Lymphadenopathy - Respiratory Exam Respiratory Exam: Decreased Breath Sounds - Cardiovascular Exam Cardiovascular Exam: REGULAR RHYTHM - GI/Abdominal Exam GI & Abdominal Exam: Distended - Rectal Exam Rectal Exam: Deferred - Exam Exam: NORMAL INSPECTION - Extremities Exam Extremities Exam: absent: Pedal Edema - Back Exam Back Exam: absent: CVA tenderness (L), CVA tenderness (R) - Neurological Exam Neurological Exam: Alert, Awake, Oriented x3 - Psychiatric Exam Psychiatric exam: Normal Mood - Skin Skin Exam: Dry Assessment and Plan (1) CHF (congestive heart failure) Status: Acute (2) COPD exacerbation Status: Acute (3) Dehydration Status: Acute
--- NOTE | 2018-02-10 13:12 | CP.PCM.CON ---
History of Present Illness - History of Present Illness History of Present Illness: Palliative consult requested by Doctor Fadumo for goals of care discussion Patient is a 72 yo lady admitted with weakness, poor appetite and diffuse abdominal pain X few days. The initial CT chest and CXR were significant for diffuse adenopathy to upper lobes, venous congestion and small B/L pleural effusion. UTI was diagnosed as well; Enteroccocus fecalies. Triple IV antibiotics on board. On 02/06, patient's O2 Sat dropped critically low . Patient transferred to ICU on high flow O2 and treated for CO2 retention. Doctor Pati on board. Chemo Tx on hold for now due to poor clinical condition. PMH: COPD, anemia, breast CA 1998, S/P left mastectomy, cervical cancer 1979, S/ P Total hysterectomy. Patient was in remission until about 2 months ago. Soc. 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 Hx: Colon cancer runs in family Review of Systems - Review of Systems All systems: reviewed and no additional remarkable complaints except Review of Systems: ROS unobtainable from patient due to lethargy. ROS obtained from nursing. Per nursing patient has been sleeping most of the day, poor appetite Past Patient History - Infectious Disease Hx of Infectious Diseases: None - Past Medical History & Family History Past Medical History?: Yes - Past Social History Smoking Status: Heavy Smoker > 10 Cigarettes Daily Chewing Tobacco Use: No Cigar Use: No - CARDIAC Hx Hypertension: Yes - PULMONARY Hx Respiratory Disorders: Yes (ABN CT SCAN) Hx Chronic Obstructive Pulmonary Disease (COPD): Yes - NEUROLOGICAL Hx Neurological Disorder: No - HEENT Hx HEENT Problems: No - RENAL Hx Chronic Kidney Disease: No - ENDOCRINE/METABOLIC Hx Diabetes Mellitus Type 2: Yes - HEMATOLOGICAL/ONCOLOGICAL Hx Anemia: Yes - INTEGUMENTARY Hx Dermatological Problems: No - MUSCULOSKELETAL/RHEUMATOLOGICAL Hx Osteoporosis: Yes - GASTROINTESTINAL Hx Gall Bladder Disease: Yes - GENITOURINARY/GYNECOLOGICAL Hx Genitourinary Disorders: Yes Hx Cervical Cancer: Yes (Cervical cancer in 1978) Hx Urinary Tract Infection: Yes (TREATED) - PSYCHIATRIC Hx Substance Use: No - SURGICAL HISTORY Hx Surgeries: Yes Hx Hysterectomy: Yes (40 yrs.ago) Hx Mastectomy: Yes (1998-surgery) Other/Comment: 1978-stomack/cervical - ANESTHESIA Hx Anesthesia: Yes Hx Anesthesia Reactions: No Hx Malignant Hyperthermia: No Meds Allergies/Adverse Reactions: Allergies Allergy/AdvReac Type Severity Reaction Status Date / Time strawberry Allergy Intermediate ITCHING Verified 01/28/18 09:03 - Medications Medications: Current Medications Albuterol/Ipratropium (Duoneb 3 Mg/0.5 Mg (3 Ml) Ud) 3 ml INH RQ6 [facility] Last Admin: 02/10/18 07:43 Dose: 3 ml Amlodipine Besylate (Norvasc) 10 mg PO DAILY [facility] Last Admin: 02/06/18 09:40 Dose: 10 mg Enoxaparin Sodium (Lovenox) 40 mg SC DAILY [facility] Last Admin: 02/10/18 09:32 Dose: 40 mg Furosemide (Lasix) 40 mg IVP BID [facility] Last Admin: 02/07/18 18:22 Dose: 40 mg Hydralazine HCl (Apresoline) 50 mg PO TID [facility] Last Admin: 02/06/18 18:34 Dose: Not Given Cefepime HCl (Maxipime Iv 1 Gm Premix) 1 gm in 50 mls @ 100 mls/hr IVPB Q8H [facility] PRN Reason: Protocol Last Admin: 02/10/18 06:33 Dose: 100 mls/hr Ampicillin 2 gm/ Sodium (Chloride) 100 mls @ 50 mls/hr IVPB Q6 [facility] PRN Reason: Protocol Last Admin: 02/10/18 06:52 Dose: 50 mls/hr Sodium Chloride (Sodium Chloride 0.9%) 1,000 mls @ 50 mls/hr IV .Q20H [facility] Last Admin: 02/10/18 06:50 Dose: Not Given Insulin Aspart (Novolog) 0 unit SC ACHS [facility] PRN Reason: Protocol Last Admin: 02/10/18 08:16 Dose: 3 units Lisinopril (Zestril) 20 mg PO DAILY [facility] Last Admin: 02/06/18 09:40 Dose: 20 mg Methylprednisolone (Solu-Medrol) 40 mg IVP Q12H [facility] Last Admin: 02/10/18 06:52 Dose: 40 mg Metoprolol Succinate (Toprol Xl) 50 mg PO DAILY [facility] Last Admin: 02/10/18 09:32 Dose: 50 mg Multivitamins (Hexavitamin) 1 tab PO DAILY [facility] Last Admin: 02/07/18 10:00 Dose: Not Given Pantoprazole Sodium (Protonix Ec Tab) 40 mg PO DAILY [facility] Last Admin: 02/10/18 09:32 Dose: 40 mg Tiotropium [place] (Spiriva) 18 mcg INH RQ24 [facility] Last Admin: 02/10/18 07:43 Dose: 18 mcg Physical Exam - Constitutional Appears: Chronically Ill - Head Exam Head Exam: ATRAUMATIC, NORMAL INSPECTION, NORMOCEPHALIC - Eye Exam Eye Exam: EOMI, Normal appearance, PERRL Pupil Exam: NORMAL ACCOMODATION, PERRL - ENT Exam ENT Exam: Mucous Membranes Moist, Normal Exam - Neck Exam Neck exam: Positive for: Normal Inspection - Respiratory Exam Respiratory Exam: Decreased Breath Sounds, NORMAL BREATHING PATTERN - Cardiovascular Exam Cardiovascular Exam: Tachycardia - GI/Abdominal Exam GI & Abdominal Exam: Diminished Bowel Sounds, Distended - Rectal Exam Rectal Exam: Deferred - Extremities Exam Extremities exam: Positive for: normal inspection - Back Exam Back exam: NORMAL INSPECTION - Neurological Exam Neurological exam: Alert - Psychiatric Exam Psychiatric exam: Flat Affect - Skin Skin Exam: Pallor Results - Vital Signs Recent Vital Signs: Last Vital Signs Temp 98.3 F 02/10/18 04:00 Pulse 77 02/10/18 11:00 Resp 27 H 02/10/18 11:46 BP 168/75 H 02/10/18 10:30 Pulse Ox 96 02/10/18 11:00 - Labs Result Diagrams: 02/10/18 06:16 02/10/18 06:15 Labs: Laboratory Results - last 24 hr 02/09/18 02/09/18 02/10/18 16:22 21:10 05:05 WBC RBC Hgb Hct MCV MCH MCHC RDW Plt Count MPV Neut % (Auto) Lymph % (Auto) [place] % (Auto) Eos % (Auto) Baso % (Auto) Neut # (Auto) Lymph # (Auto) [place] # (Auto) Eos # (Auto) Baso # (Auto) Neutrophils % (Manual) Lymphocytes % (Manual) Monocytes % (Manual) Platelet Estimate Hypochromasia (manual) Poikilocytosis (manual Anisocytosis (manual) Microcytosis (manual) Target Cells Ovalocytes Puncture Site Rr pCO2 51 H pO2 89 HCO3 33.9 H ABG pH 7.47 H ABG Total CO2 38.7 H ABG O2 Saturation 98.1 H ABG Base Excess 11.5 H [place] Test Pos ABG Potassium 3.7 A-a O2 Difference 560.0 Respiratory Index 6.3 Sodium 142.0 Chloride 105.0 Glucose 251 H Lactate 1.4 Liter Flow 15.0 FiO2 100.0 Potassium Carbon Dioxide Anion Gap BUN Creatinine Est GFR ( Amer) Est GFR (Non-Af Amer) POC Glucose (mg/dL) 218 H 184 H Random Glucose Calcium Phosphorus Magnesium Total Bilirubin AST ALT Alkaline Phosphatase Total Protein Albumin Globulin Albumin/Globulin Ratio Arterial Blood Potassium 3.7 02/10/18 02/10/18 02/10/18 06:15 06:16 07:06 WBC 5.2 RBC 3.24 L Hgb 8.1 L Hct 24.9 L MCV 76.8 L MCH 25.1 L MCHC 32.7 L RDW 24.6 H Plt Count 74 L MPV 10.1 Neut % (Auto) 90.1 H Lymph % (Auto) 2.6 L [place] % (Auto) 7.0 Eos % (Auto) 0.0 Baso % (Auto) 0.3 Neut # (Auto) 4.7 Lymph # (Auto) 0.1 L [place] # (Auto) 0.4 Eos # (Auto) 0.0 Baso # (Auto) 0.0 Neutrophils % (Manual) 91 H Lymphocytes % (Manual) 4 L Monocytes % (Manual) 5 Platelet Estimate Decreased L Hypochromasia (manual) Moderate Poikilocytosis (manual Slight Anisocytosis (manual) Slight Microcytosis (manual) Slight Target Cells Slight Ovalocytes Slight Puncture Site pCO2 pO2 HCO3 ABG pH ABG Total CO2 ABG O2 Saturation ABG Base Excess [place] Test ABG Potassium A-a O2 Difference Respiratory Index Sodium 143 Chloride 100 Glucose Lactate Liter Flow FiO2 Potassium 3.8 Carbon Dioxide 36 H Anion Gap 11 BUN 34 H Creatinine 0.7 Est GFR ( Amer) > 60 Est GFR (Non-Af Amer) > 60 POC Glucose (mg/dL) 260 H Random Glucose 238 H Calcium 9.0 Phosphorus 4.0 Magnesium 2.1 Total Bilirubin 1.0 AST 19 ALT 56 H Alkaline Phosphatase 150 H Total Protein 4.9 L Albumin 2.2 L Globulin 2.7 Albumin/Globulin Ratio 0.8 L Arterial Blood Potassium 02/10/18 12:07 WBC RBC Hgb Hct MCV MCH MCHC RDW Plt Count MPV Neut % (Auto) Lymph % (Auto) [place] % (Auto) Eos % (Auto) Baso % (Auto) Neut # (Auto) Lymph # (Auto) [place] # (Auto) Eos # (Auto) Baso # (Auto) Neutrophils % (Manual) Lymphocytes % (Manual) Monocytes % (Manual) Platelet Estimate Hypochromasia (manual) Poikilocytosis (manual Anisocytosis (manual) Microcytosis (manual) Target Cells Ovalocytes Puncture Site pCO2 pO2 HCO3 ABG pH ABG Total CO2 ABG O2 Saturation ABG Base Excess [place] Test ABG Potassium A-a O2 Difference Respiratory Index Sodium Chloride Glucose Lactate Liter Flow FiO2 Potassium Carbon Dioxide Anion Gap BUN Creatinine Est GFR ( Amer) Est GFR (Non-Af Amer) POC Glucose (mg/dL) 291 H Random Glucose Calcium Phosphorus Magnesium Total Bilirubin AST ALT Alkaline Phosphatase Total Protein Albumin Globulin Albumin/Globulin Ratio Arterial Blood Potassium Assessment & Plan - Assessment and Plan (Free Text) Assessment: Palliative consult Full Code, there is no Advance directive on chart, PPS 10% I reviewed Medical records, all diagnostic studies, examined patient in the bed and discussed goals of care with patient's daughter at bed side Patient is examined in bed, very lethargic looking chronically ill, older than stated age. Skin and sclera are noticeable pale.Hb 8.1, down from 9.2. Patient briefly opens her eyes when touched or called by name. Breathing is shallow, ABGs show CO2 30%, down from 40%. Abdomen is distended. Last BM 2 days ago. Per daughter, patient had a small BM this am. Appetite is poor. Patient eats only few spoons of liquid or pudding. BP 168/75. Patient developed malignant Hypertensin and is treated for it. O2Sat 90-93% with O2 supplement. WBC 5.2, Hb 8.1, Plat 74 down from 83 Goals of care discussed with daughter at bed side. I reviewed patient's clinical condition and elicited her understanding of it. Daughter admitted being in shock as her mother " was doing so well" all this years. I elicited her expectatins of care. The daughter was concerned with patient's poor appetite and insisted we " give her something" to make her stronger. I helped daughter understand that respiratory status is the first priority. Further I related patient's presentation to newly diagnosed lymphoma. Daughter had other questions regarding IV antibiotics, why were given and for how long, what was latest CXR result and so on. I answered all questions and reassured her in all medically reasonable measures being applied. Further I questioned daughter about her conversation with Doctor Krueger and discussed Code status. The daughter repeated exactly the same what she told Doctor Krueger , that her mother wanted everything done. I tried to help daughter understand that deciding on Code status will not limit care provided but will instead safe patient more suffering in case her condition worsens and heart stops. The daughter simply was not ready to think about it . Her all intentions were directed to cure and chemo Tx, once patient gets better. We agreed to keep in touch daily and me updating daughter on new developments. This was discussed with ICU team on rounds. Impression * Newly diagnosed lymphoma * generalized weakness * Lethargy * Anemia * UTI * Thombcytopenia * Patient is unable to advocate for her self due to condition * Daughter at bed side requesting Full Code, as per patient's wishes stated to her in the past Suggestions * Cancer treatment per Doctor Krueger * Bed rest * Aspiration precautions, feed only when patient awake * IV hydration if needed * Monitor Hb, blood transfusion if hb < 7.0 * IV antibiotics for UTI per Doctor Mccollum * Monitor for abnormal bleeding * FULL CODE per daughter's request Palliative care will continue to fallow up with patient and daughter and offer support Advance care planing 40 min
--- NOTE | 2018-02-10 15:46 | CP.CCUPN ---
<Fadumo Morrell - Last Filed: 02/10/18 15:43> CCU Subjective - Physician Review Subjective (Free Text): Patient was seen and examined at bedside. Patient reports breathing is difficult. When off High Flow, patient desaturates to high 80s. CCU Objective - Vital Signs / Intake & Output Vital Signs (Last 4 hours): Vital Signs Pulse Resp BP Pulse Ox 02/10/18 13:30 86 21 167/81 H 90 L 02/10/18 13:25 85 25 H 163/78 H 96 02/10/18 13:17 27 H 02/10/18 13:00 84 28 H 93 L 02/10/18 12:00 74 23 94 L 02/10/18 11:46 27 H Intake and Output (Last 8hrs): Intake & Output 02/10/18 02/10/18 02/10/18 06:59 14:59 22:59 Intake Total 610 430 Output Total 425 220 Balance 185 210 Weight 149 lb 11.2 oz Intake: Intake, IV Amount 550 250 Right Distal Port Port-A- 150 Cath Right Port-A-Cath 400 250 Oral 60 180 Output: Urine 425 220 Urethral (Soto) 425 220 Stool 0 Emesis 0 0 Other: # Bowel Movements 1 - Physical Exam Head: Positive for: Atraumatic, Normocephalic Extroacular Muscles: Positive for: EOMI Mouth: Positive for: Moist Mucous Membranes Respiratory/Chest: Positive for: Decreased Breath Sounds Cardiovascular: Positive for: Normal S1, S2, Tachycardic, Other (portacath R chest) Abdomen: Positive for: Normal Bowel Sounds. Negative for: Tenderness, Distention, Peritoneal Signs Upper Extremity: Positive for: Normal Inspection Lower Extremity: Positive for: Other (scds in place). Negative for: Edema Skin: Positive for: Warm, Dry Psychiatric: Positive for: Alert - Medications Active Medications: Active Medications Generic Name Dose Route Start Last Admin Trade Name Freq PRN Reason Stop Dose Admin Albuterol/Ipratropium 3 ml 02/09/18 14:00 02/10/18 13:13 Duoneb 3 Mg/0.5 Mg (3 Ml) Ud INH 3 ml RQ6 MILLIE Administration Amlodipine Besylate 10 mg 02/06/18 09:11 02/06/18 09:40 Norvasc PO 10 mg DAILY MILLIE Administration Enoxaparin Sodium 40 mg 01/28/18 14:45 02/10/18 09:32 Lovenox SC 40 mg DAILY MILLIE Administration Furosemide 40 mg 02/02/18 18:00 02/07/18 18:22 Lasix IVP 40 mg BID MILLIE Administration Hydralazine HCl 50 mg 02/06/18 10:00 02/06/18 18:34 Apresoline PO Not Given TID MILLIE Cefepime HCl 1 gm in 50 mls @ 100 mls/hr 02/02/18 14:00 02/10/18 13:08 Maxipime Iv 1 Gm Premix IVPB 100 mls/hr Q8H MILLIE Administration Protocol Ampicillin 2 gm/ Sodium 100 mls @ 50 mls/hr 02/04/18 18:00 02/10/18 13:09 Chloride IVPB 50 mls/hr Q6 MILLIE Administration Protocol Sodium Chloride 1,000 mls @ 50 mls/hr 02/09/18 10:30 02/10/18 06:50 Sodium Chloride 0.9% IV Not Given .Q20H MILLIE Insulin Aspart 0 unit 01/29/18 07:30 02/10/18 13:07 Novolog SC 3 units ACHS MILLIE Administration Protocol Lisinopril 20 mg 02/06/18 10:00 02/06/18 09:40 Zestril PO 20 mg DAILY MILLIE Administration Methylprednisolone 40 mg 02/03/18 06:00 02/10/18 06:52 Solu-Medrol IVP 40 mg Q12H MILLIE Administration Metoprolol Succinate 50 mg 01/29/18 10:00 02/10/18 09:32 Toprol Xl PO 50 mg DAILY MILLIE Administration Multivitamins 1 tab 01/29/18 10:00 02/07/18 10:00 Hexavitamin PO Not Given DAILY MILLIE Pantoprazole Sodium 40 mg 01/29/18 10:00 02/10/18 09:32 Protonix Ec Tab PO 40 mg DAILY MILLIE Administration Tiotropium [place] 18 mcg 01/30/18 08:00 02/10/18 07:43 Spiriva INH 18 mcg RQ24 MILLIE Administration - Patient Studies Lab Studies: Lab Studies 02/10/18 02/10/18 02/10/18 Range/Units 12:07 07:06 06:16 WBC 5.2 (4.8-10.8) K/uL RBC 3.24 L (3.80-5.20) Mil/uL Hgb 8.1 L (11.0-16.0) g/dL Hct 24.9 L (34.0-47.0) % MCV 76.8 L (81.0-99.0) fL MCH 25.1 L (27.0-31.0) pg MCHC 32.7 L (33.0-37.0) g/dL RDW 24.6 H (11.5-14.5) % Plt Count 74 L (130-400) K/uL MPV 10.1 (7.2-11.7) fL Neut % (Auto) 90.1 H (50.0-75.0) % Lymph % (Auto) 2.6 L (20.0-40.0) % [place] % (Auto) 7.0 (0.0-10.0) % Eos % (Auto) 0.0 (0.0-4.0) % Baso % (Auto) 0.3 (0.0-2.0) % Neut # (Auto) 4.7 (1.8-7.0) K/uL Lymph # (Auto) 0.1 L (1.0-4.3) K/uL [place] # (Auto) 0.4 (0.0-0.8) K/uL Eos # (Auto) 0.0 (0.0-0.7) K/uL Baso # (Auto) 0.0 (0.0-0.2) K/uL Neutrophils % (Manual) 91 H (50-75) % Lymphocytes % (Manual) 4 L (20-40) % Monocytes % (Manual) 5 (0-10) % Platelet Estimate Decreased L (NORMAL) Hypochromasia (manual) Moderate Poikilocytosis (manual Slight Anisocytosis (manual) Slight Microcytosis (manual) Slight Target Cells Slight Ovalocytes Slight Puncture Site pCO2 (35-45) mm/Hg pO2 (80-100) mm/Hg HCO3 (21-28) mmol/L ABG pH (7.35-7.45) ABG Total CO2 (22-28) mmol/L ABG O2 Saturation (95-98) % ABG Base Excess (-2.0-3.0) mmol/L Chepe Test ABG Potassium (3.6-5.2) mmol/L A-a O2 Difference mm/Hg Respiratory Index Sodium (132-148) mmol/l Chloride (98-107) mmol/L Glucose (65-105) mg/dl Lactate (0.7-2.1) mmol/L Liter Flow FiO2 % Potassium (3.6-5.2) mmol/L Carbon Dioxide (22-30) mmol/L Anion Gap (10-20) BUN (7-17) mg/dL Creatinine (0.7-1.2) mg/dL Est GFR ( Amer) Est GFR (Non-Af Amer) POC Glucose (mg/dL) 291 H 260 H (65-110) mg/dL Random Glucose (65-105) mg/dL Calcium (8.6-10.4) mg/dl Phosphorus (2.5-4.5) mg/dL Magnesium (1.6-2.3) mg/dL Total Bilirubin (0.2-1.3) mg/dL AST (14-36) U/L ALT (9-52) U/L Alkaline Phosphatase (38-126) U/L Total Protein (6.3-8.3) g/dL Albumin (3.5-5.0) g/dL Globulin (2.2-3.9) gm/dL Albumin/Globulin Ratio (1.0-2.1) Arterial Blood Potassium (3.6-5.2) mmol/L 02/10/18 02/10/18 02/09/18 Range/Units 06:15 05:05 21:10 WBC (4.8-10.8) K/uL RBC (3.80-5.20) Mil/uL Hgb (11.0-16.0) g/dL Hct (34.0-47.0) % MCV (81.0-99.0) fL MCH (27.0-31.0) pg MCHC (33.0-37.0) g/dL RDW (11.5-14.5) % Plt Count (130-400) K/uL MPV (7.2-11.7) fL Neut % (Auto) (50.0-75.0) % Lymph % (Auto) (20.0-40.0) % [place] % (Auto) (0.0-10.0) % Eos % (Auto) (0.0-4.0) % Baso % (Auto) (0.0-2.0) % Neut # (Auto) (1.8-7.0) K/uL Lymph # (Auto) (1.0-4.3) K/uL [place] # (Auto) (0.0-0.8) K/uL Eos # (Auto) (0.0-0.7) K/uL Baso # (Auto) (0.0-0.2) K/uL Neutrophils % (Manual) (50-75) % Lymphocytes % (Manual) (20-40) % Monocytes % (Manual) (0-10) % Platelet Estimate (NORMAL) Hypochromasia (manual) Poikilocytosis (manual Anisocytosis (manual) Microcytosis (manual) Target Cells Ovalocytes Puncture Site Rr pCO2 51 H (35-45) mm/Hg pO2 89 (80-100) mm/Hg HCO3 33.9 H (21-28) mmol/L ABG pH 7.47 H (7.35-7.45) ABG Total CO2 38.7 H (22-28) mmol/L ABG O2 Saturation 98.1 H (95-98) % ABG Base Excess 11.5 H (-2.0-3.0) mmol/L Chepe Test Pos ABG Potassium 3.7 (3.6-5.2) mmol/L A-a O2 Difference 560.0 mm/Hg Respiratory Index 6.3 Sodium 143 142.0 (132-148) mmol/l Chloride 100 105.0 (98-107) mmol/L Glucose 251 H (65-105) mg/dl Lactate 1.4 (0.7-2.1) mmol/L Liter Flow 15.0 FiO2 100.0 % Potassium 3.8 (3.6-5.2) mmol/L Carbon Dioxide 36 H (22-30) mmol/L Anion Gap 11 (10-20) BUN 34 H (7-17) mg/dL Creatinine 0.7 (0.7-1.2) mg/dL Est GFR ( Amer) > 60 Est GFR (Non-Af Amer) > 60 POC Glucose (mg/dL) 184 H (65-110) mg/dL Random Glucose 238 H (65-105) mg/dL Calcium 9.0 (8.6-10.4) mg/dl Phosphorus 4.0 (2.5-4.5) mg/dL Magnesium 2.1 (1.6-2.3) mg/dL Total Bilirubin 1.0 (0.2-1.3) mg/dL AST 19 (14-36) U/L ALT 56 H (9-52) U/L Alkaline Phosphatase 150 H (38-126) U/L Total Protein 4.9 L (6.3-8.3) g/dL Albumin 2.2 L (3.5-5.0) g/dL Globulin 2.7 (2.2-3.9) gm/dL Albumin/Globulin Ratio 0.8 L (1.0-2.1) Arterial Blood Potassium 3.7 (3.6-5.2) mmol/L 02/09/18 Range/Units 16:22 WBC (4.8-10.8) K/uL RBC (3.80-5.20) Mil/uL Hgb (11.0-16.0) g/dL Hct (34.0-47.0) % MCV (81.0-99.0) fL MCH (27.0-31.0) pg MCHC (33.0-37.0) g/dL RDW (11.5-14.5) % Plt Count (130-400) K/uL MPV (7.2-11.7) fL Neut % (Auto) (50.0-75.0) % Lymph % (Auto) (20.0-40.0) % [place] % (Auto) (0.0-10.0) % Eos % (Auto) (0.0-4.0) % Baso % (Auto) (0.0-2.0) % Neut # (Auto) (1.8-7.0) K/uL Lymph # (Auto) (1.0-4.3) K/uL [place] # (Auto) (0.0-0.8) K/uL Eos # (Auto) (0.0-0.7) K/uL Baso # (Auto) (0.0-0.2) K/uL Neutrophils % (Manual) (50-75) % Lymphocytes % (Manual) (20-40) % Monocytes % (Manual) (0-10) % Platelet Estimate (NORMAL) Hypochromasia (manual) Poikilocytosis (manual Anisocytosis (manual) Microcytosis (manual) Target Cells Ovalocytes Puncture Site pCO2 (35-45) mm/Hg pO2 (80-100) mm/Hg HCO3 (21-28) mmol/L ABG pH (7.35-7.45) ABG Total CO2 (22-28) mmol/L ABG O2 Saturation (95-98) % ABG Base Excess (-2.0-3.0) mmol/L Chepe Test ABG Potassium (3.6-5.2) mmol/L A-a O2 Difference mm/Hg Respiratory Index Sodium (132-148) mmol/l Chloride (98-107) mmol/L Glucose (65-105) mg/dl Lactate (0.7-2.1) mmol/L Liter Flow FiO2 % Potassium (3.6-5.2) mmol/L Carbon Dioxide (22-30) mmol/L Anion Gap (10-20) BUN (7-17) mg/dL Creatinine (0.7-1.2) mg/dL Est GFR ( Amer) Est GFR (Non-Af Amer) POC Glucose (mg/dL) 218 H (65-110) mg/dL Random Glucose (65-105) mg/dL Calcium (8.6-10.4) mg/dl Phosphorus (2.5-4.5) mg/dL Magnesium (1.6-2.3) mg/dL Total Bilirubin (0.2-1.3) mg/dL AST (14-36) U/L ALT (9-52) U/L Alkaline Phosphatase (38-126) U/L Total Protein (6.3-8.3) g/dL Albumin (3.5-5.0) g/dL Globulin (2.2-3.9) gm/dL Albumin/Globulin Ratio (1.0-2.1) Arterial Blood Potassium (3.6-5.2) mmol/L Laboratory Results - last 24 hr 02/09/18 02/09/18 02/10/18 16:22 21:10 05:05 WBC RBC Hgb Hct MCV MCH MCHC RDW Plt Count MPV Neut % (Auto) Lymph % (Auto) [place] % (Auto) Eos % (Auto) Baso % (Auto) Neut # (Auto) Lymph # (Auto) [place] # (Auto) Eos # (Auto) Baso # (Auto) Neutrophils % (Manual) Lymphocytes % (Manual) Monocytes % (Manual) Platelet Estimate Hypochromasia (manual) Poikilocytosis (manual Anisocytosis (manual) Microcytosis (manual) Target Cells Ovalocytes Puncture Site Rr pCO2 51 H pO2 89 HCO3 33.9 H ABG pH 7.47 H ABG Total CO2 38.7 H ABG O2 Saturation 98.1 H ABG Base Excess 11.5 H Chepe Test Pos ABG Potassium 3.7 A-a O2 Difference 560.0 Respiratory Index 6.3 Sodium 142.0 Chloride 105.0 Glucose 251 H Lactate 1.4 Liter Flow 15.0 FiO2 100.0 Potassium Carbon Dioxide Anion Gap BUN Creatinine Est GFR ( Amer) Est GFR (Non-Af Amer) POC Glucose (mg/dL) 218 H 184 H Random Glucose Calcium Phosphorus Magnesium Total Bilirubin AST ALT Alkaline Phosphatase Total Protein Albumin Globulin Albumin/Globulin Ratio Arterial Blood Potassium 3.7 02/10/18 02/10/18 02/10/18 06:15 06:16 07:06 WBC 5.2 RBC 3.24 L Hgb 8.1 L Hct 24.9 L MCV 76.8 L MCH 25.1 L MCHC 32.7 L RDW 24.6 H Plt Count 74 L MPV 10.1 Neut % (Auto) 90.1 H Lymph % (Auto) 2.6 L [place] % (Auto) 7.0 Eos % (Auto) 0.0 Baso % (Auto) 0.3 Neut # (Auto) 4.7 Lymph # (Auto) 0.1 L [place] # (Auto) 0.4 Eos # (Auto) 0.0 Baso # (Auto) 0.0 Neutrophils % (Manual) 91 H Lymphocytes % (Manual) 4 L Monocytes % (Manual) 5 Platelet Estimate Decreased L Hypochromasia (manual) Moderate Poikilocytosis (manual Slight Anisocytosis (manual) Slight Microcytosis (manual) Slight Target Cells Slight Ovalocytes Slight Puncture Site pCO2 pO2 HCO3 ABG pH ABG Total CO2 ABG O2 Saturation ABG Base Excess Chepe Test ABG Potassium A-a O2 Difference Respiratory Index Sodium 143 Chloride 100 Glucose Lactate Liter Flow FiO2 Potassium 3.8 Carbon Dioxide 36 H Anion Gap 11 BUN 34 H Creatinine 0.7 Est GFR ( Amer) > 60 Est GFR (Non-Af Amer) > 60 POC Glucose (mg/dL) 260 H Random Glucose 238 H Calcium 9.0 Phosphorus 4.0 Magnesium 2.1 Total Bilirubin 1.0 AST 19 ALT 56 H Alkaline Phosphatase 150 H Total Protein 4.9 L Albumin 2.2 L Globulin 2.7 Albumin/Globulin Ratio 0.8 L Arterial Blood Potassium 02/10/18 12:07 WBC RBC Hgb Hct MCV MCH MCHC RDW Plt Count MPV Neut % (Auto) Lymph % (Auto) [place] % (Auto) Eos % (Auto) Baso % (Auto) Neut # (Auto) Lymph # (Auto) [place] # (Auto) Eos # (Auto) Baso # (Auto) Neutrophils % (Manual) Lymphocytes % (Manual) Monocytes % (Manual) Platelet Estimate Hypochromasia (manual) Poikilocytosis (manual Anisocytosis (manual) Microcytosis (manual) Target Cells Ovalocytes Puncture Site pCO2 pO2 HCO3 ABG pH ABG Total CO2 ABG O2 Saturation ABG Base Excess [place] Test ABG Potassium A-a O2 Difference Respiratory Index Sodium Chloride Glucose Lactate Liter Flow FiO2 Potassium Carbon Dioxide Anion Gap BUN Creatinine Est GFR ( Amer) Est GFR (Non-Af Amer) POC Glucose (mg/dL) 291 H Random Glucose Calcium Phosphorus Magnesium Total Bilirubin AST ALT Alkaline Phosphatase Total Protein Albumin Globulin Albumin/Globulin Ratio Arterial Blood Potassium Fingerstick Blood Sugar Results: 291 Critical Care Progress Note - Nutrition Nutrition: Nutrition Category Date Time Status Diabetic [Consistent Carbohydrate] [DIET] Diets 02/07/18 Lunch Active Assessment/Plan - Assessment and Plan (Free Text) Assessment: Patient is a 72 y/o with PMHx of HTN, DM, Anemia requiring multiple transfusions , L breast cancer s/p mastectomy, cervical cancer s/p hysterectomy, and newly diagnosed lymphoma and COPD who presented to the ED on 01/28/18 for increasing shortness of breath and was admitted for acute COPD exacerbation, CHF, lymphoma. Rapid Response was called while on the floor due to SpO2 of 87% and increasing lethargy. Critical care consulted for hypoxemia. Patient was transferred to the ICU, and her respiratory distress was managed with bipap/ High Flow. Patient had CT chest with negative PE. In addition, patient developed malignant htn, which was controlled. Plan: Neuro: Somnolent, awakens with verbal commands. Appears anxious at times. Pulm: Acute hypoxemic respiratory failure requiring Bipap/ High Flow. Etiology is uncertain, likely COPD exacerbation. - Continue with solumedrol, duonebs q6 - Will adjust FIO2 on bipap/high flow to maintain O2 sat above 90%. - Continue spiriva and abx Cardio: hemodynamically stable. continue with norvasc and metoprolol for HTN. ECHO with bubble study ordered Renal: Metabolic alkalosis likely due to lasix lasix is on hold Dehydration with elevated bun- will start gentle hydration NS@50cc/hr Electrolytes being repleted Endo: Continue ISS, fingerstick achs and mod consistency carb diet. GI: Transaminitis- continue to trend down Consitpation- gave ND dulcolax ID: empiric therapy with ampicillin and Cefepime for possible underlying pneumonia/COPD exacerbation. Hem: anemia of chronic disease - continue to monitor Thrombocytopenia- plt stable, no signs of bleeding. Heme/onc following Prophylaxis: DVT proph - Lovenox GI proph - protonix Fadumo English Dr., DO, PGY-2 <Reginald Land - Last Filed: 02/10/18 17:35> CCU Objective - Vital Signs / Intake & Output Vital Signs (Last 4 hours): Vital Signs Pulse Resp BP Pulse Ox 02/10/18 13:30 86 21 167/81 H 90 L 02/10/18 13:25 85 25 H 163/78 H 96 Intake and Output (Last 8hrs): Intake & Output 02/10/18 02/10/18 02/10/18 06:59 14:59 22:59 Intake Total 610 430 Output Total 425 220 Balance 185 210 Weight 149 lb 11.2 oz Intake: Intake, IV Amount 550 250 Right Distal Port Port-A- 150 Cath Right Port-A-Cath 400 250 Oral 60 180 Output: Urine 425 220 Urethral (Soto) 425 220 Stool 0 Emesis 0 0 Other: # Bowel Movements 1 - Medications Active Medications: Active Medications Generic Name Dose Route Start Last Admin Trade Name Freq PRN Reason Stop Dose Admin Albuterol/Ipratropium 3 ml 02/09/18 14:00 02/10/18 13:13 Duoneb 3 Mg/0.5 Mg (3 Ml) Ud INH 3 ml RQ6 MILLIE Administration Amlodipine Besylate 10 mg 02/06/18 09:11 02/06/18 09:40 Norvasc PO 10 mg DAILY MILLIE Administration Bisacodyl 10 mg 02/10/18 15:49 Dulcolax ND DAILY PRN Constipation Enoxaparin Sodium 40 mg 01/28/18 14:45 02/10/18 09:32 Lovenox SC 40 mg DAILY MILLIE Administration Furosemide 40 mg 02/02/18 18:00 02/07/18 18:22 Lasix IVP 40 mg BID MILLIE Administration Hydralazine HCl 50 mg 02/06/18 10:00 02/06/18 18:34 Apresoline PO Not Given TID MILLIE Cefepime HCl 1 gm in 50 mls @ 100 mls/hr 02/02/18 14:00 02/10/18 13:08 Maxipime Iv 1 Gm Premix IVPB 100 mls/hr Q8H MILLIE Administration Protocol Ampicillin 2 gm/ Sodium 100 mls @ 50 mls/hr 02/04/18 18:00 02/10/18 13:09 Chloride IVPB 50 mls/hr Q6 MILLIE Administration Protocol Sodium Chloride 1,000 mls @ 50 mls/hr 02/09/18 10:30 02/10/18 16:45 Sodium Chloride 0.9% IV 50 mls/hr .Q20H MILLIE Administration Insulin Aspart 0 unit 01/29/18 07:30 02/10/18 16:47 Novolog SC 2 units ACHS MILLIE Administration Protocol Lisinopril 20 mg 02/06/18 10:00 02/06/18 09:40 Zestril PO 20 mg DAILY MILLIE Administration Methylprednisolone 40 mg 02/03/18 06:00 02/10/18 06:52 Solu-Medrol IVP 40 mg Q12H MILLIE Administration Metoprolol Succinate 50 mg 01/29/18 10:00 02/10/18 09:32 Toprol Xl PO 50 mg DAILY MILLIE Administration Multivitamins 1 tab 01/29/18 10:00 02/07/18 10:00 Hexavitamin PO Not Given DAILY [facility] Pantoprazole Sodium 40 mg 01/29/18 10:00 02/10/18 09:32 Protonix Ec Tab PO 40 mg DAILY MILLIE Administration Tiotropium [place] 18 mcg 01/30/18 08:00 02/10/18 07:43 Spiriva INH 18 mcg RQ24 MILLIE Administration - Patient Studies Lab Studies: Lab Studies 02/10/18 02/10/18 02/10/18 Range/Units 12:07 07:06 06:16 WBC 5.2 (4.8-10.8) K/uL RBC 3.24 L (3.80-5.20) Mil/uL Hgb 8.1 L (11.0-16.0) g/dL Hct 24.9 L (34.0-47.0) % MCV 76.8 L (81.0-99.0) fL MCH 25.1 L (27.0-31.0) pg MCHC 32.7 L (33.0-37.0) g/dL RDW 24.6 H (11.5-14.5) % Plt Count 74 L (130-400) K/uL MPV 10.1 (7.2-11.7) fL Neut % (Auto) 90.1 H (50.0-75.0) % Lymph % (Auto) 2.6 L (20.0-40.0) % [place] % (Auto) 7.0 (0.0-10.0) % Eos % (Auto) 0.0 (0.0-4.0) % Baso % (Auto) 0.3 (0.0-2.0) % Neut # (Auto) 4.7 (1.8-7.0) K/uL Lymph # (Auto) 0.1 L (1.0-4.3) K/uL [place] # (Auto) 0.4 (0.0-0.8) K/uL Eos # (Auto) 0.0 (0.0-0.7) K/uL Baso # (Auto) 0.0 (0.0-0.2) K/uL Neutrophils % (Manual) 91 H (50-75) % Lymphocytes % (Manual) 4 L (20-40) % Monocytes % (Manual) 5 (0-10) % Platelet Estimate Decreased L (NORMAL) Hypochromasia (manual) Moderate Poikilocytosis (manual Slight Anisocytosis (manual) Slight Microcytosis (manual) Slight Target Cells Slight Ovalocytes Slight Puncture Site pCO2 (35-45) mm/Hg pO2 (80-100) mm/Hg HCO3 (21-28) mmol/L ABG pH (7.35-7.45) ABG Total CO2 (22-28) mmol/L ABG O2 Saturation (95-98) % ABG Base Excess (-2.0-3.0) mmol/L Chepe Test ABG Potassium (3.6-5.2) mmol/L A-a O2 Difference mm/Hg Respiratory Index Sodium (132-148) mmol/l Chloride (98-107) mmol/L Glucose (65-105) mg/dl Lactate (0.7-2.1) mmol/L Liter Flow FiO2 % Potassium (3.6-5.2) mmol/L Carbon Dioxide (22-30) mmol/L Anion Gap (10-20) BUN (7-17) mg/dL Creatinine (0.7-1.2) mg/dL Est GFR ( Amer) Est GFR (Non-Af Amer) POC Glucose (mg/dL) 291 H 260 H (65-110) mg/dL Random Glucose (65-105) mg/dL Calcium (8.6-10.4) mg/dl Phosphorus (2.5-4.5) mg/dL Magnesium (1.6-2.3) mg/dL Total Bilirubin (0.2-1.3) mg/dL AST (14-36) U/L ALT (9-52) U/L Alkaline Phosphatase (38-126) U/L Total Protein (6.3-8.3) g/dL Albumin (3.5-5.0) g/dL Globulin (2.2-3.9) gm/dL Albumin/Globulin Ratio (1.0-2.1) Arterial Blood Potassium (3.6-5.2) mmol/L 02/10/18 02/10/18 02/09/18 Range/Units 06:15 05:05 21:10 WBC (4.8-10.8) K/uL RBC (3.80-5.20) Mil/uL Hgb (11.0-16.0) g/dL Hct (34.0-47.0) % MCV (81.0-99.0) fL MCH (27.0-31.0) pg MCHC (33.0-37.0) g/dL RDW (11.5-14.5) % Plt Count (130-400) K/uL MPV (7.2-11.7) fL Neut % (Auto) (50.0-75.0) % Lymph % (Auto) (20.0-40.0) % [place] % (Auto) (0.0-10.0) % Eos % (Auto) (0.0-4.0) % Baso % (Auto) (0.0-2.0) % Neut # (Auto) (1.8-7.0) K/uL Lymph # (Auto) (1.0-4.3) K/uL [place] # (Auto) (0.0-0.8) K/uL Eos # (Auto) (0.0-0.7) K/uL Baso # (Auto) (0.0-0.2) K/uL Neutrophils % (Manual) (50-75) % Lymphocytes % (Manual) (20-40) % Monocytes % (Manual) (0-10) % Platelet Estimate (NORMAL) Hypochromasia (manual) Poikilocytosis (manual Anisocytosis (manual) Microcytosis (manual) Target Cells Ovalocytes Puncture Site Rr pCO2 51 H (35-45) mm/Hg pO2 89 (80-100) mm/Hg HCO3 33.9 H (21-28) mmol/L ABG pH 7.47 H (7.35-7.45) ABG Total CO2 38.7 H (22-28) mmol/L ABG O2 Saturation 98.1 H (95-98) % ABG Base Excess 11.5 H (-2.0-3.0) mmol/L Chepe Test Pos ABG Potassium 3.7 (3.6-5.2) mmol/L A-a O2 Difference 560.0 mm/Hg Respiratory Index 6.3 Sodium 143 142.0 (132-148) mmol/l Chloride 100 105.0 (98-107) mmol/L Glucose 251 H (65-105) mg/dl Lactate 1.4 (0.7-2.1) mmol/L Liter Flow 15.0 FiO2 100.0 % Potassium 3.8 (3.6-5.2) mmol/L Carbon Dioxide 36 H (22-30) mmol/L Anion Gap 11 (10-20) BUN 34 H (7-17) mg/dL Creatinine 0.7 (0.7-1.2) mg/dL Est GFR ( Amer) > 60 Est GFR (Non-Af Amer) > 60 POC Glucose (mg/dL) 184 H (65-110) mg/dL Random Glucose 238 H (65-105) mg/dL Calcium 9.0 (8.6-10.4) mg/dl Phosphorus 4.0 (2.5-4.5) mg/dL Magnesium 2.1 (1.6-2.3) mg/dL Total Bilirubin 1.0 (0.2-1.3) mg/dL AST 19 (14-36) U/L ALT 56 H (9-52) U/L Alkaline Phosphatase 150 H (38-126) U/L Total Protein 4.9 L (6.3-8.3) g/dL Albumin 2.2 L (3.5-5.0) g/dL Globulin 2.7 (2.2-3.9) gm/dL Albumin/Globulin Ratio 0.8 L (1.0-2.1) Arterial Blood Potassium 3.7 (3.6-5.2) mmol/L 02/09/18 Range/Units 16:22 WBC (4.8-10.8) K/uL RBC (3.80-5.20) Mil/uL Hgb (11.0-16.0) g/dL Hct (34.0-47.0) % MCV (81.0-99.0) fL MCH (27.0-31.0) pg MCHC (33.0-37.0) g/dL RDW (11.5-14.5) % Plt Count (130-400) K/uL MPV (7.2-11.7) fL Neut % (Auto) (50.0-75.0) % Lymph % (Auto) (20.0-40.0) % [place] % (Auto) (0.0-10.0) % Eos % (Auto) (0.0-4.0) % Baso % (Auto) (0.0-2.0) % Neut # (Auto) (1.8-7.0) K/uL Lymph # (Auto) (1.0-4.3) K/uL [place] # (Auto) (0.0-0.8) K/uL Eos # (Auto) (0.0-0.7) K/uL Baso # (Auto) (0.0-0.2) K/uL Neutrophils % (Manual) (50-75) % Lymphocytes % (Manual) (20-40) % Monocytes % (Manual) (0-10) % Platelet Estimate (NORMAL) Hypochromasia (manual) Poikilocytosis (manual Anisocytosis (manual) Microcytosis (manual) Target Cells Ovalocytes Puncture Site pCO2 (35-45) mm/Hg pO2 (80-100) mm/Hg HCO3 (21-28) mmol/L ABG pH (7.35-7.45) ABG Total CO2 (22-28) mmol/L ABG O2 Saturation (95-98) % ABG Base Excess (-2.0-3.0) mmol/L Chepe Test ABG Potassium (3.6-5.2) mmol/L A-a O2 Difference mm/Hg Respiratory Index Sodium (132-148) mmol/l Chloride (98-107) mmol/L Glucose (65-105) mg/dl Lactate (0.7-2.1) mmol/L Liter Flow FiO2 % Potassium (3.6-5.2) mmol/L Carbon Dioxide (22-30) mmol/L Anion Gap (10-20) BUN (7-17) mg/dL Creatinine (0.7-1.2) mg/dL Est GFR ( Amer) Est GFR (Non-Af Amer) POC Glucose (mg/dL) 218 H (65-110) mg/dL Random Glucose (65-105) mg/dL Calcium (8.6-10.4) mg/dl Phosphorus (2.5-4.5) mg/dL Magnesium (1.6-2.3) mg/dL Total Bilirubin (0.2-1.3) mg/dL AST (14-36) U/L ALT (9-52) U/L Alkaline Phosphatase (38-126) U/L Total Protein (6.3-8.3) g/dL Albumin (3.5-5.0) g/dL Globulin (2.2-3.9) gm/dL Albumin/Globulin Ratio (1.0-2.1) Arterial Blood Potassium (3.6-5.2) mmol/L Laboratory Results - last 24 hr 02/09/18 02/09/18 02/10/18 16:22 21:10 05:05 WBC RBC Hgb Hct MCV MCH MCHC RDW Plt Count MPV Neut % (Auto) Lymph % (Auto) [place] % (Auto) Eos % (Auto) Baso % (Auto) Neut # (Auto) Lymph # (Auto) [place] # (Auto) Eos # (Auto) Baso # (Auto) Neutrophils % (Manual) Lymphocytes % (Manual) Monocytes % (Manual) Platelet Estimate Hypochromasia (manual) Poikilocytosis (manual Anisocytosis (manual) Microcytosis (manual) Target Cells Ovalocytes Puncture Site Rr pCO2 51 H pO2 89 HCO3 33.9 H ABG pH 7.47 H ABG Total CO2 38.7 H ABG O2 Saturation 98.1 H ABG Base Excess 11.5 H Chepe Test Pos ABG Potassium 3.7 A-a O2 Difference 560.0 Respiratory Index 6.3 Sodium 142.0 Chloride 105.0 Glucose 251 H Lactate 1.4 Liter Flow 15.0 FiO2 100.0 Potassium Carbon Dioxide Anion Gap BUN Creatinine Est GFR ( Amer) Est GFR (Non-Af Amer) POC Glucose (mg/dL) 218 H 184 H Random Glucose Calcium Phosphorus Magnesium Total Bilirubin AST ALT Alkaline Phosphatase Total Protein Albumin Globulin Albumin/Globulin Ratio Arterial Blood Potassium 3.7 02/10/18 02/10/18 02/10/18 06:15 06:16 07:06 WBC 5.2 RBC 3.24 L Hgb 8.1 L Hct 24.9 L MCV 76.8 L MCH 25.1 L MCHC 32.7 L RDW 24.6 H Plt Count 74 L MPV 10.1 Neut % (Auto) 90.1 H Lymph % (Auto) 2.6 L [place] % (Auto) 7.0 Eos % (Auto) 0.0 Baso % (Auto) 0.3 Neut # (Auto) 4.7 Lymph # (Auto) 0.1 L [place] # (Auto) 0.4 Eos # (Auto) 0.0 Baso # (Auto) 0.0 Neutrophils % (Manual) 91 H Lymphocytes % (Manual) 4 L Monocytes % (Manual) 5 Platelet Estimate Decreased L Hypochromasia (manual) Moderate Poikilocytosis (manual Slight Anisocytosis (manual) Slight Microcytosis (manual) Slight Target Cells Slight Ovalocytes Slight Puncture Site pCO2 pO2 HCO3 ABG pH ABG Total CO2 ABG O2 Saturation ABG Base Excess [place] Test ABG Potassium A-a O2 Difference Respiratory Index Sodium 143 Chloride 100 Glucose Lactate Liter Flow FiO2 Potassium 3.8 Carbon Dioxide 36 H Anion Gap 11 BUN 34 H Creatinine 0.7 Est GFR ( Amer) > 60 Est GFR (Non-Af Amer) > 60 POC Glucose (mg/dL) 260 H Random Glucose 238 H Calcium 9.0 Phosphorus 4.0 Magnesium 2.1 Total Bilirubin 1.0 AST 19 ALT 56 H Alkaline Phosphatase 150 H Total Protein 4.9 L Albumin 2.2 L Globulin 2.7 Albumin/Globulin Ratio 0.8 L Arterial Blood Potassium 02/10/18 12:07 WBC RBC Hgb Hct MCV MCH MCHC RDW Plt Count MPV Neut % (Auto) Lymph % (Auto) [place] % (Auto) Eos % (Auto) Baso % (Auto) Neut # (Auto) Lymph # (Auto) [place] # (Auto) Eos # (Auto) Baso # (Auto) Neutrophils % (Manual) Lymphocytes % (Manual) Monocytes % (Manual) Platelet Estimate Hypochromasia (manual) Poikilocytosis (manual Anisocytosis (manual) Microcytosis (manual) Target Cells Ovalocytes Puncture Site pCO2 pO2 HCO3 ABG pH ABG Total CO2 ABG O2 Saturation ABG Base Excess Chepe Test ABG Potassium A-a O2 Difference Respiratory Index Sodium Chloride Glucose Lactate Liter Flow FiO2 Potassium Carbon Dioxide Anion Gap BUN Creatinine Est GFR ( Amer) Est GFR (Non-Af Amer) POC Glucose (mg/dL) 291 H Random Glucose Calcium Phosphorus Magnesium Total Bilirubin AST ALT Alkaline Phosphatase Total Protein Albumin Globulin Albumin/Globulin Ratio Arterial Blood Potassium Critical Care Progress Note - Nutrition Nutrition: Nutrition Category Date Time Status Diabetic [Consistent Carbohydrate] [DIET] Diets 02/07/18 Lunch Active Assessment/Plan (1) Acute respiratory failure with hypoxia Current Visit: Yes Status: Acute Attending/Attestation - Attestation I have personally seen and examined this patient.: Yes I have fully participated in the care of the patient.: Yes I have reviewed all pertinent clinical information: Yes Notes (Text): 02/10/18 17:17 I have seen and examined the patient. Medical records, lab studies, and imaging were reviewed by me and a management plan was formulated on multidisciplinary rounds with resident Dr. Bullard. I agree with their documented assessment and plan. Echocardiogram did not any evidence of an intracardiac shunt or RV strain. Etiology of hypoxia is currently unknown. Considering lymphangitic spread to lungs, will repeat chest CT to assess pleural effusions. Critical Care Time 35 minutes. Multi-disciplinary rounds were performed with house staff, nursing, speech therapy, respiratory therapy, pharmacy and nutrition with integrated input from the primary team/attending and other consulting services. The documented time is cumulative and includes review of patient data/exams/labs/chart review and examination of the patient on rounds and throughout the day; time is exclusive of any procedures or teaching time.
--- NOTE | 2018-02-10 16:35 | CARD ---
APPROVED REPORT Date of service: 02/10/2018 EXAM: LIMITED Two-dimensional and M-mode echocardiogram WITH BUBBLE STUDY Other Information Quality : GoodRhythm : INDICATION EVAL FOR POSSIBLE SHUNT Mitral Valve E/A ratio0.0 TDI E/Lateral E'0.0E/Medial E'0.0 <Conclusion> limited study. Normal left ventricular systolic function paradaoxical inferolateral wall motion. Mild mitral annular calcification. Mild mitral regurgitation. Injection of agitated saline does not demonstrate an intra cardiac shunt. Right ventricular size and function are normal.
--- NOTE | 2018-02-10 17:13 | RAD ---
Date of service: 02/10/2018 HISTORY: f/u COMPARISON: No prior. FINDINGS: LUNGS: No consolidation. There is pulmonary venous congestion suggested that has increased since the prior exam. PLEURA: A small right pleural effusion is suspect. No pneumothorax apparent. CARDIOVASCULAR: Mild cardiomegaly. Pulmonary venous congestion increased since prior exam. Density over are heart possibly mitral annular calcification. Right chest wall port place tip cavoatrial junction -similar. OSSEOUS STRUCTURES: No significant abnormalities. VISUALIZED UPPER ABDOMEN: Gallstones OTHER FINDINGS: None. IMPRESSION: Interval increased pulmonary venous congestion. Interval small right pleural effusion Incidentally noted are multiple large gallstones
--- NOTE | 2018-02-10 21:39 | CP.PCM.PN ---
Subjective - Date & Time of Evaluation Date of Evaluation: 02/10/18 Time of Evaluation: 19:30 - Subjective Subjective: pt clinically same Objective - Vital Signs/Intake and Output Vital Signs (last 24 hours): Temp Pulse Resp BP Pulse Ox 97.1 F L 82 17 174/72 H 94 L 02/10/18 16:00 02/10/18 20:30 02/10/18 21:36 02/10/18 20:30 02/10/18 20:30 Intake and Output: 02/10/18 02/11/18 18:59 06:59 Intake Total 1240 200 Output Total 610 0 Balance 630 200 - Medications Medications: Current Medications Albuterol/Ipratropium (Duoneb 3 Mg/0.5 Mg (3 Ml) Ud) 3 ml INH RQ6 [facility] Last Admin: 02/10/18 21:35 Dose: 3 ml Amlodipine Besylate (Norvasc) 10 mg PO DAILY [facility] Last Admin: 02/06/18 09:40 Dose: 10 mg Bisacodyl (Dulcolax) 10 mg [place] DAILY PRN PRN Reason: Constipation Last Admin: 02/10/18 18:16 Dose: 10 mg Enoxaparin Sodium (Lovenox) 40 mg SC DAILY [facility] Last Admin: 02/10/18 09:32 Dose: 40 mg Furosemide (Lasix) 40 mg IVP BID [facility] Last Admin: 02/07/18 18:22 Dose: 40 mg Hydralazine HCl (Apresoline) 50 mg PO TID [facility] Last Admin: 02/06/18 18:34 Dose: Not Given Cefepime HCl (Maxipime Iv 1 Gm Premix) 1 gm in 50 mls @ 100 mls/hr IVPB Q8H [facility] PRN Reason: Protocol Last Admin: 02/10/18 13:08 Dose: 100 mls/hr Ampicillin 2 gm/ Sodium (Chloride) 100 mls @ 50 mls/hr IVPB Q6 [facility] PRN Reason: Protocol Last Admin: 02/10/18 18:15 Dose: 50 mls/hr Sodium Chloride (Sodium Chloride 0.9%) 1,000 mls @ 50 mls/hr IV .Q20H [facility] Last Admin: 02/10/18 16:45 Dose: 50 mls/hr Insulin Aspart (Novolog) 0 unit SC ACHS [facility] PRN Reason: Protocol Last Admin: 02/10/18 16:47 Dose: 2 units Lisinopril (Zestril) 20 mg PO DAILY [facility] Last Admin: 02/06/18 09:40 Dose: 20 mg Methylprednisolone (Solu-Medrol) 40 mg IVP Q12H [facility] Last Admin: 02/10/18 18:18 Dose: 40 mg Metoprolol Succinate (Toprol Xl) 50 mg PO DAILY [facility] Last Admin: 02/10/18 09:32 Dose: 50 mg Multivitamins (Hexavitamin) 1 tab PO DAILY [facility] Last Admin: 02/07/18 10:00 Dose: Not Given Pantoprazole Sodium (Protonix Ec Tab) 40 mg PO DAILY [facility] Last Admin: 02/10/18 09:32 Dose: 40 mg Tiotropium [place] (Spiriva) 18 mcg INH RQ24 [facility] Last Admin: 02/10/18 07:43 Dose: 18 mcg - Labs Labs: 02/10/18 06:16 02/10/18 06:15 PT 15.9 SECONDS (9.7-12.2) H 01/28/18 10:14 INR 1.5 01/28/18 10:14 APTT 30 SECONDS (21-34) 01/28/18 10:14
[2018-02-11] MEDS: AMPicillin 2 GM in Sodium Chloride 100 ML IVPB SCH ×4 (00:12→17:00)
[2018-02-11] MEDS ORDERED: Metoprolol 1 mg/ml Inj IVP STA (00:24)
[2018-02-11] MEDS: Albuterol-Ipratrop 3 mg / 0.5 (3 ml) UD INH SCH ×4 (01:09→20:35)
[2018-02-11] MEDS: Cefepime IV 1 gm in Dextrose 1 GM/50 ML BAG IVPB SCH ×3 (06:15→22:27)
[2018-02-11 06:24] LABS: BASO # 0.1 K/uL (0.0-0.2); HEMOGLOBIN 8.2 g/dL (11.0-16.0); LYMPH # 0.1 K/uL (1.0-4.3); LYMPH % 2.1 % (20.0-40.0); MEAN CELL VOLUME 77.5 fL (81.0-99.0); MEAN CORPUSCULAR HEMOGLOBIN 25.4 pg (27.0-31.0); MEAN CORPUSCULAR HGB CONC 32.8 g/dL (33.0-37.0); MEAN PLATELET VOLUME 10.5 fL (7.2-11.7); MONO # 0.3 K/uL (0.0-0.8); MONO % 5.5 % (0.0-10.0); NEUT % 91.4 % (50.0-75.0); NRBC % 0.2 % (0.0-2.0); PLATELET COUNT 80 K/uL (130-400); RBC 3.23 Mil/uL (3.80-5.20); RED CELL DISTRIBUTION WIDTH 24.1 % (11.5-14.5); WHITE BLOOD COUNT 5.5 K/uL (4.8-10.8)
[2018-02-11] MEDS: Sodium Chloride 0.9% 1,000 ML IV SCH ×2 (06:33→22:45)
[2018-02-11] MEDS: MethylPREDNISolone 40 mg Vial IVP SCH ×2 (06:34→17:00)
[2018-02-11 06:41] LABS: ALB/GLOB RATIO 0.8 (1.0-2.1); ALBUMIN 2.2 g/dL (3.5-5.0); ALT/SGPT 65 U/L (9-52); AST/SGOT 23 U/L (14-36); BLOOD UREA NITROGEN 30 mg/dL (7-17); CALCIUM 8.9 mg/dl (8.6-10.4); GFR NON-AFRICAN AMERICAN > 60
[2018-02-11] MEDS: Tiotropium 18 mcg Cap For Inhalation INH SCH (07:30)
[2018-02-11 08:07] LABS: ANISOCYTOSIS MODERATE; BANDS 4 % (0-2); MONOCYTE 3 % (0-10); NEUTROPHIL 92 % (50-75); PLATELET ESTIMATE DECREASED (NORMAL); REACTIVE LYMPHOCYTES 1 % (0-0); TOTAL CELLS COUNTED 100
[2018-02-11 08:08] LABS: HYPOCHROMIC MODERATE
--- NOTE | 2018-02-11 08:45 | CP.CCUPN ---
CCU Objective - Vital Signs / Intake & Output Vital Signs (Last 4 hours): Vital Signs Resp 02/11/18 07:19 20 02/11/18 06:20 23 Intake and Output (Last 8hrs): Intake & Output 02/10/18 02/11/18 02/11/18 22:59 06:59 14:59 Intake Total 830 620 Output Total 440 250 Balance 390 370 Intake: Intake, IV Amount 500 400 Right Distal Port Port-A- 150 100 Cath Right Port-A-Cath 350 300 Oral 330 220 Output: Urine 440 250 Urethral (Soto) 440 250 Emesis 0 0 Other: # Bowel Movements 0 0 - Physical Exam Head: Positive for: Atraumatic, Normocephalic Extroacular Muscles: Positive for: EOMI Mouth: Positive for: Moist Mucous Membranes Respiratory/Chest: Positive for: Decreased Breath Sounds Cardiovascular: Positive for: Normal S1, S2, Tachycardic, Other (portacath R chest) Abdomen: Positive for: Normal Bowel Sounds. Negative for: Tenderness, Distention, Peritoneal Signs Upper Extremity: Positive for: Normal Inspection Lower Extremity: Positive for: Other (scds in place). Negative for: Edema Skin: Positive for: Warm, Dry Psychiatric: Positive for: Alert - Medications Active Medications: Active Medications Generic Name Dose Route Start Last Admin Trade Name Freq PRN Reason Stop Dose Admin Albuterol/Ipratropium 3 ml 02/09/18 14:00 02/11/18 01:09 Duoneb 3 Mg/0.5 Mg (3 Ml) Ud INH 3 ml RQ6 [facility] Administration Amlodipine Besylate 10 mg 02/06/18 09:11 02/06/18 09:40 Norvasc PO 10 mg DAILY [facility] Administration Bisacodyl 10 mg 02/10/18 15:49 02/10/18 18:16 Dulcolax [place] 10 mg DAILY PRN Administration Constipation Enoxaparin Sodium 40 mg 01/28/18 14:45 02/10/18 09:32 Lovenox SC 40 mg DAILY [facility] Administration Hydralazine HCl 50 mg 02/06/18 10:00 02/06/18 18:34 Apresoline PO Not Given TID [facility]IE Hydralazine HCl 10 mg 02/11/18 00:00 Apresoline IVP Q6H PRN Other Cefepime HCl 1 gm in 50 mls @ 100 mls/hr 02/02/18 14:00 02/11/18 06:15 Maxipime Iv 1 Gm Premix IVPB 100 mls/hr Q8H [facility] Administration Protocol Ampicillin 2 gm/ Sodium 100 mls @ 50 mls/hr 02/04/18 18:00 02/11/18 06:34 Chloride IVPB 50 mls/hr Q6 [facility] Administration Protocol Sodium Chloride 1,000 mls @ 50 mls/hr 02/09/18 10:30 02/11/18 06:33 Sodium Chloride 0.9% IV Not Given .Q20H [facility] Insulin Aspart 0 unit 01/29/18 07:30 02/10/18 22:31 Novolog SC Not Given ACHS [facility] Protocol Lactulose 20 gm 02/11/18 08:42 Enulose PO 02/11/18 08:43 ONCE ONE Lisinopril 20 mg 02/06/18 10:00 02/06/18 09:40 Zestril PO 20 mg DAILY [facility] Administration Methylprednisolone 40 mg 02/03/18 06:00 02/11/18 06:34 Solu-Medrol IVP 40 mg Q12H [facility] Administration Metoprolol Succinate 50 mg 01/29/18 10:00 02/10/18 09:32 Toprol Xl PO 50 mg DAILY [facility] Administration Multivitamins 1 tab 01/29/18 10:00 02/07/18 10:00 Hexavitamin PO Not Given DAILY [facility] Pantoprazole Sodium 40 mg 01/29/18 10:00 02/10/18 09:32 Protonix Ec Tab PO 40 mg DAILY [facility] Administration Tiotropium [place] 18 mcg 01/30/18 08:00 02/10/18 07:43 Spiriva INH 18 mcg RQ24 [facility] Administration - Patient Studies Lab Studies: Lab Studies 02/11/18 02/11/18 02/10/18 Range/Units 06:14 06:14 21:17 WBC 5.5 (4.8-10.8) K/uL RBC 3.23 L (3.80-5.20) Mil/uL Hgb 8.2 L (11.0-16.0) g/dL Hct 25.0 L (34.0-47.0) % MCV 77.5 L (81.0-99.0) fL MCH 25.4 L (27.0-31.0) pg MCHC 32.8 L (33.0-37.0) g/dL RDW 24.1 H (11.5-14.5) % Plt Count 80 L (130-400) K/uL MPV 10.5 (7.2-11.7) fL Neut % (Auto) 91.4 H (50.0-75.0) % Lymph % (Auto) 2.1 L (20.0-40.0) % [place] % (Auto) 5.5 (0.0-10.0) % Eos % (Auto) 0.0 (0.0-4.0) % Baso % (Auto) 1.0 (0.0-2.0) % Neut # (Auto) 5.0 (1.8-7.0) K/uL Lymph # (Auto) 0.1 L (1.0-4.3) K/uL [place] # (Auto) 0.3 (0.0-0.8) K/uL Eos # (Auto) 0.0 (0.0-0.7) K/uL Baso # (Auto) 0.1 (0.0-0.2) K/uL Neutrophils % (Manual) 92 H (50-75) % Band Neutrophils % 4 H (0-2) % Lymphocytes % (Manual) TEST NOT PERFORMED Reactive Lymphs % 1 H (0-0) % Monocytes % (Manual) 3 (0-10) % Platelet Estimate Decreased L (NORMAL) Hypochromasia (manual) Moderate Basophilic Stippling Slight Anisocytosis (manual) Moderate Sodium 141 (132-148) mmol/L Potassium 3.8 (3.6-5.2) mmol/L Chloride 102 (98-107) mmol/L Carbon Dioxide 32 H (22-30) mmol/L Anion Gap 11 (10-20) BUN 30 H (7-17) mg/dL Creatinine 0.7 (0.7-1.2) mg/dL Est GFR ( Amer) > 60 Est GFR (Non-Af Amer) > 60 POC Glucose (mg/dL) 213 H (65-110) mg/dL Random Glucose 233 H (65-105) mg/dL Calcium 8.9 (8.6-10.4) mg/dl Phosphorus 2.6 (2.5-4.5) mg/dL Magnesium 2.0 (1.6-2.3) mg/dL Total Bilirubin 0.9 (0.2-1.3) mg/dL AST 23 (14-36) U/L ALT 65 H (9-52) U/L Alkaline Phosphatase 175 H (38-126) U/L Total Protein 4.8 L (6.3-8.3) g/dL Albumin 2.2 L (3.5-5.0) g/dL Globulin 2.6 (2.2-3.9) gm/dL Albumin/Globulin Ratio 0.8 L (1.0-2.1) 02/10/18 02/10/18 Range/Units 16:12 12:07 WBC (4.8-10.8) K/uL RBC (3.80-5.20) Mil/uL Hgb (11.0-16.0) g/dL Hct (34.0-47.0) % MCV (81.0-99.0) fL MCH (27.0-31.0) pg MCHC (33.0-37.0) g/dL RDW (11.5-14.5) % Plt Count (130-400) K/uL MPV (7.2-11.7) fL Neut % (Auto) (50.0-75.0) % Lymph % (Auto) (20.0-40.0) % [place] % (Auto) (0.0-10.0) % Eos % (Auto) (0.0-4.0) % Baso % (Auto) (0.0-2.0) % Neut # (Auto) (1.8-7.0) K/uL Lymph # (Auto) (1.0-4.3) K/uL [place] # (Auto) (0.0-0.8) K/uL Eos # (Auto) (0.0-0.7) K/uL Baso # (Auto) (0.0-0.2) K/uL Neutrophils % (Manual) (50-75) % Band Neutrophils % (0-2) % Lymphocytes % (Manual) Reactive Lymphs % (0-0) % Monocytes % (Manual) (0-10) % Platelet Estimate (NORMAL) Hypochromasia (manual) Basophilic Stippling Anisocytosis (manual) Sodium (132-148) mmol/L Potassium (3.6-5.2) mmol/L Chloride (98-107) mmol/L Carbon Dioxide (22-30) mmol/L Anion Gap (10-20) BUN (7-17) mg/dL Creatinine (0.7-1.2) mg/dL Est GFR ( Amer) Est GFR (Non-Af Amer) POC Glucose (mg/dL) 227 H 291 H (65-110) mg/dL Random Glucose (65-105) mg/dL Calcium (8.6-10.4) mg/dl Phosphorus (2.5-4.5) mg/dL Magnesium (1.6-2.3) mg/dL Total Bilirubin (0.2-1.3) mg/dL AST (14-36) U/L ALT (9-52) U/L Alkaline Phosphatase (38-126) U/L Total Protein (6.3-8.3) g/dL Albumin (3.5-5.0) g/dL Globulin (2.2-3.9) gm/dL Albumin/Globulin Ratio (1.0-2.1) Laboratory Results - last 24 hr 02/10/18 02/10/18 02/10/18 12:07 16:12 21:17 WBC RBC Hgb Hct MCV MCH MCHC RDW Plt Count MPV Neut % (Auto) Lymph % (Auto) [place] % (Auto) Eos % (Auto) Baso % (Auto) Neut # (Auto) Lymph # (Auto) [place] # (Auto) Eos # (Auto) Baso # (Auto) Neutrophils % (Manual) Band Neutrophils % Lymphocytes % (Manual) Reactive Lymphs % Monocytes % (Manual) Platelet Estimate Hypochromasia (manual) Basophilic Stippling Anisocytosis (manual) Sodium Potassium Chloride Carbon Dioxide Anion Gap BUN Creatinine Est GFR ( Amer) Est GFR (Non-Af Amer) POC Glucose (mg/dL) 291 H 227 H 213 H Random Glucose Calcium Phosphorus Magnesium Total Bilirubin AST ALT Alkaline Phosphatase Total Protein Albumin Globulin Albumin/Globulin Ratio 02/11/18 02/11/18 06:14 06:14 WBC 5.5 RBC 3.23 L Hgb 8.2 L Hct 25.0 L MCV 77.5 L MCH 25.4 L MCHC 32.8 L RDW 24.1 H Plt Count 80 L MPV 10.5 Neut % (Auto) 91.4 H Lymph % (Auto) 2.1 L [place] % (Auto) 5.5 Eos % (Auto) 0.0 Baso % (Auto) 1.0 Neut # (Auto) 5.0 Lymph # (Auto) 0.1 L [place] # (Auto) 0.3 Eos # (Auto) 0.0 Baso # (Auto) 0.1 Neutrophils % (Manual) 92 H Band Neutrophils % 4 H Lymphocytes % (Manual) TEST NOT PERFORMED Reactive Lymphs % 1 H Monocytes % (Manual) 3 Platelet Estimate Decreased L Hypochromasia (manual) Moderate Basophilic Stippling Slight Anisocytosis (manual) Moderate Sodium 141 Potassium 3.8 Chloride 102 Carbon Dioxide 32 H Anion Gap 11 BUN 30 H Creatinine 0.7 Est GFR ( Amer) > 60 Est GFR (Non-Af Amer) > 60 POC Glucose (mg/dL) Random Glucose 233 H Calcium 8.9 Phosphorus 2.6 Magnesium 2.0 Total Bilirubin 0.9 AST 23 ALT 65 H Alkaline Phosphatase 175 H Total Protein 4.8 L Albumin 2.2 L Globulin 2.6 Albumin/Globulin Ratio 0.8 L Fingerstick Blood Sugar Results: 213 Critical Care Progress Note - Nutrition Nutrition: Nutrition Category Date Time Status Diabetic [Consistent Carbohydrate] [DIET] Diets 02/07/18 Lunch Active
[2018-02-11] MEDS: (Novolog) Insulin Aspart, Recombinant 100 u/ml 10 ml vial SC SCH ×4 (09:44→22:18)
[2018-02-11] MEDS: Pantoprazole 40 mg EC Tab PO SCH (09:46)
[2018-02-11] MEDS: Metoprolol Succinate 50 mg XL Tab PO SCH (09:46)
[2018-02-11] MEDS: Enoxaparin 40 mg Syringe SC SCH (12:18)
--- NOTE | 2018-02-11 17:39 | CP.PCM.PN ---
Subjective - Date & Time of Evaluation Date of Evaluation: 02/11/18 Time of Evaluation: 10:30 - Subjective Subjective: pt clinically same Objective - Vital Signs/Intake and Output Vital Signs (last 24 hours): Temp Pulse Resp BP Pulse Ox 97.9 F 92 H 9 L 151/71 H 96 02/11/18 16:00 02/11/18 17:00 02/11/18 17:00 02/11/18 16:30 02/11/18 17:00 Intake and Output: 02/11/18 02/11/18 06:59 18:59 Intake Total 1600 780 Output Total 600 Balance 1000 780 - Medications Medications: Current Medications Albuterol/Ipratropium (Duoneb 3 Mg/0.5 Mg (3 Ml) Ud) 3 ml INH RQ6 [facility] Last Admin: 02/11/18 14:10 Dose: 3 ml Amlodipine Besylate (Norvasc) 10 mg PO DAILY [facility] Last Admin: 02/11/18 09:46 Dose: 10 mg Bisacodyl (Dulcolax) 10 mg [place] DAILY PRN PRN Reason: Constipation Last Admin: 02/10/18 18:16 Dose: 10 mg Enoxaparin Sodium (Lovenox) 40 mg SC DAILY [facility] Last Admin: 02/11/18 12:18 Dose: 40 mg Hydralazine HCl (Apresoline) 50 mg PO TID [facility] Last Admin: 02/11/18 17:00 Dose: 50 mg Hydralazine HCl (Apresoline) 10 mg IVP Q6H PRN PRN Reason: Other Cefepime HCl (Maxipime Iv 1 Gm Premix) 1 gm in 50 mls @ 100 mls/hr IVPB Q8H [facility] PRN Reason: Protocol Last Admin: 02/11/18 13:40 Dose: 100 mls/hr Ampicillin 2 gm/ Sodium (Chloride) 100 mls @ 50 mls/hr IVPB Q6 [facility] PRN Reason: Protocol Last Admin: 02/11/18 17:00 Dose: 50 mls/hr Sodium Chloride (Sodium Chloride 0.9%) 1,000 mls @ 50 mls/hr IV .Q20H [facility] Last Admin: 02/11/18 06:33 Dose: Not Given Insulin Aspart (Novolog) 0 unit SC ACHS [facility] PRN Reason: Protocol Last Admin: 02/11/18 17:01 Dose: 1 units Lisinopril (Zestril) 20 mg PO DAILY [facility] Last Admin: 02/11/18 13:41 Dose: 20 mg Methylprednisolone (Solu-Medrol) 40 mg IVP Q12H [facility] Last Admin: 02/11/18 17:00 Dose: 40 mg Metoprolol Succinate (Toprol Xl) 50 mg PO DAILY [facility] Last Admin: 02/11/18 09:46 Dose: 50 mg Multivitamins (Hexavitamin) 1 tab PO DAILY [facility] Last Admin: 02/07/18 10:00 Dose: Not Given Pantoprazole Sodium (Protonix Ec Tab) 40 mg PO DAILY [facility] Last Admin: 02/11/18 09:46 Dose: 40 mg Tiotropium [place] (Spiriva) 18 mcg INH RQ24 [facility] Last Admin: 02/11/18 07:30 Dose: 18 mcg - Labs Labs: 02/11/18 06:14 02/11/18 06:14 PT 15.9 SECONDS (9.7-12.2) H 01/28/18 10:14 INR 1.5 01/28/18 10:14 APTT 30 SECONDS (21-34) 01/28/18 10:14
[2018-02-12] MEDS: AMPicillin 2 GM in Sodium Chloride 100 ML IVPB SCH ×4 (00:02→17:53)
[2018-02-12] MEDS: Albuterol-Ipratrop 3 mg / 0.5 (3 ml) UD INH SCH ×4 (02:53→20:03)
[2018-02-12] MEDS: MethylPREDNISolone 40 mg Vial IVP SCH ×2 (05:14→17:48)
[2018-02-12] MEDS: Cefepime IV 1 gm in Dextrose 1 GM/50 ML BAG IVPB SCH ×2 (05:15→14:50)
[2018-02-12 06:09] LABS: BASO % 0.3 % (0.0-2.0); LYMPH # 0.1 K/uL (1.0-4.3); LYMPH % 1.7 % (20.0-40.0); MEAN CELL VOLUME 77.3 fL (81.0-99.0); MEAN CORPUSCULAR HGB CONC 32.4 g/dL (33.0-37.0); MEAN PLATELET VOLUME 11.2 fL (7.2-11.7); MONO # 0.3 K/uL (0.0-0.8); NEUT # 4.1 K/uL (1.8-7.0); NRBC % 0.2 % (0.0-2.0); PLATELET COUNT 59 K/uL (130-400); RBC 3.19 Mil/uL (3.80-5.20); RED CELL DISTRIBUTION WIDTH 24.3 % (11.5-14.5); WHITE BLOOD COUNT 4.5 K/uL (4.8-10.8)
[2018-02-12 06:37] LABS: ALB/GLOB RATIO 0.9 (1.0-2.1); ALBUMIN 2.3 g/dL (3.5-5.0); ALT/SGPT 74 U/L (9-52); AST/SGOT 23 U/L (14-36); BLOOD UREA NITROGEN 27 mg/dL (7-17); CALCIUM 8.9 mg/dl (8.6-10.4); GFR NON-AFRICAN AMERICAN > 60
[2018-02-12 08:26] LABS: LYMPHOCYTE 3 % (20-40); TOTAL CELLS COUNTED 100
[2018-02-12 08:27] LABS: ANISOCYTOSIS SLIGHT; HYPOCHROMIC MODERATE; MONOCYTE 5 % (0-10); NEUTROPHIL 92 % (50-75); PLATELET ESTIMATE DECREASED (NORMAL); POIKILOCYTOSIS SLIGHT
[2018-02-12 08:28] LABS: OVALOCYTES SLIGHT; TARGET CELLS SLIGHT
[2018-02-12 08:29] LABS: LARGE PLATELETS PRESENT
[2018-02-12] MEDS: (Novolog) Insulin Aspart, Recombinant 100 u/ml 10 ml vial SC SCH ×4 (08:55→21:34)
[2018-02-12] MEDS: Metoprolol Succinate 50 mg XL Tab PO SCH (10:59)
[2018-02-12] MEDS: Pantoprazole 40 mg EC Tab PO SCH (10:59)
[2018-02-12] MEDS: Enoxaparin 40 mg Syringe SC SCH (11:04)
[2018-02-12] MEDS: Tiotropium 18 mcg Cap For Inhalation INH SCH (13:42)
--- NOTE | 2018-02-12 18:29 | CP.PCM.PN ---
Subjective - Date & Time of Evaluation Date of Evaluation: 02/12/18 Objective - Vital Signs/Intake and Output Vital Signs (last 24 hours): Temp Pulse Resp BP Pulse Ox 98.0 F 76 22 120/66 99 02/12/18 16:00 02/12/18 18:00 02/12/18 18:00 02/12/18 16:00 02/12/18 18:00 Intake and Output: 02/12/18 02/12/18 06:59 18:59 Intake Total 700 1150 Output Total 200 900 Balance 500 250 - Medications Medications: Current Medications Albuterol/Ipratropium (Duoneb 3 Mg/0.5 Mg (3 Ml) Ud) 3 ml INH RQ6 [facility] Last Admin: 02/12/18 13:38 Dose: Not Given Amlodipine Besylate (Norvasc) 10 mg PO DAILY [facility] Last Admin: 02/12/18 11:11 Dose: 10 mg Bisacodyl (Dulcolax) 10 mg [place] DAILY PRN PRN Reason: Constipation Last Admin: 02/10/18 18:16 Dose: 10 mg Enoxaparin Sodium (Lovenox) 40 mg SC DAILY [facility] Last Admin: 02/12/18 11:04 Dose: 40 mg Hydralazine HCl (Apresoline) 50 mg PO TID [facility] Last Admin: 02/12/18 17:47 Dose: 50 mg Hydralazine HCl (Apresoline) 10 mg IVP Q6H PRN PRN Reason: Other Cefepime HCl (Maxipime Iv 1 Gm Premix) 1 gm in 50 mls @ 100 mls/hr IVPB Q8H [facility] PRN Reason: Protocol Last Admin: 02/12/18 14:50 Dose: 100 mls/hr Ampicillin 2 gm/ Sodium (Chloride) 100 mls @ 50 mls/hr IVPB Q6 [facility] PRN Reason: Protocol Last Admin: 02/12/18 17:53 Dose: 50 mls/hr Insulin Aspart (Novolog) 0 unit SC ACHS [facility] PRN Reason: Protocol Last Admin: 02/12/18 17:52 Dose: 3 units Lisinopril (Zestril) 20 mg PO DAILY [facility] Last Admin: 02/12/18 10:59 Dose: 20 mg Methylprednisolone (Solu-Medrol) 40 mg IVP Q12H [facility] Last Admin: 02/12/18 17:48 Dose: 40 mg Metoprolol Succinate (Toprol Xl) 50 mg PO DAILY [facility] Last Admin: 02/12/18 10:59 Dose: 50 mg Multivitamins (Hexavitamin) 1 tab PO DAILY [facility] Last Admin: 02/07/18 10:00 Dose: Not Given Pantoprazole Sodium (Protonix Ec Tab) 40 mg PO DAILY [facility] Last Admin: 02/12/18 10:59 Dose: 40 mg Tiotropium [place] (Spiriva) 18 mcg INH RQ24 [facility] Last Admin: 02/12/18 13:42 Dose: 18 mcg - Labs Labs: 02/12/18 06:00 02/12/18 06:00 PT 15.9 SECONDS (9.7-12.2) H 01/28/18 10:14 INR 1.5 01/28/18 10:14 APTT 30 SECONDS (21-34) 01/28/18 10:14
--- NOTE | 2018-02-12 18:43 | CP.PCM.PN ---
Subjective - Date & Time of Evaluation Date of Evaluation: 02/12/18 Time of Evaluation: 08:00 - Subjective Subjective: afebrile nad ok to d/c iv antibiotics as repeat u/ neg and cxr neg for infiltrates Objective - Vital Signs/Intake and Output Vital Signs (last 24 hours): Temp Pulse Resp BP Pulse Ox 98.0 F 76 22 120/66 99 02/12/18 16:00 02/12/18 18:00 02/12/18 18:00 02/12/18 16:00 02/12/18 18:00 Intake and Output: 02/12/18 02/12/18 06:59 18:59 Intake Total 700 1150 Output Total 200 900 Balance 500 250 - Medications Medications: Current Medications Albuterol/Ipratropium (Duoneb 3 Mg/0.5 Mg (3 Ml) Ud) 3 ml INH RQ6 [facility] Last Admin: 02/12/18 13:38 Dose: Not Given Amlodipine Besylate (Norvasc) 10 mg PO DAILY [facility] Last Admin: 02/12/18 11:11 Dose: 10 mg Bisacodyl (Dulcolax) 10 mg [place] DAILY PRN PRN Reason: Constipation Last Admin: 02/10/18 18:16 Dose: 10 mg Enoxaparin Sodium (Lovenox) 40 mg [place] DAILY [facility] Last Admin: 02/12/18 11:04 Dose: 40 mg Hydralazine HCl (Apresoline) 50 mg PO TID [facility] Last Admin: 02/12/18 17:47 Dose: 50 mg Hydralazine HCl (Apresoline) 10 mg IVP Q6H PRN PRN Reason: Other Cefepime HCl (Maxipime Iv 1 Gm Premix) 1 gm in 50 mls @ 100 mls/hr IVPB Q8H [facility] PRN Reason: Protocol Last Admin: 02/12/18 14:50 Dose: 100 mls/hr Ampicillin 2 gm/ Sodium (Chloride) 100 mls @ 50 mls/hr IVPB Q6 [facility] PRN Reason: Protocol Last Admin: 02/12/18 17:53 Dose: 50 mls/hr Insulin Aspart (Novolog) 0 unit SC ACHS [facility] PRN Reason: Protocol Last Admin: 02/12/18 17:52 Dose: 3 units Lisinopril (Zestril) 20 mg PO DAILY [facility] Last Admin: 02/12/18 10:59 Dose: 20 mg Methylprednisolone (Solu-Medrol) 40 mg IVP Q12H [facility] Last Admin: 02/12/18 17:48 Dose: 40 mg Metoprolol Succinate (Toprol Xl) 50 mg PO DAILY [facility] Last Admin: 02/12/18 10:59 Dose: 50 mg Multivitamins (Hexavitamin) 1 tab PO DAILY [facility] Last Admin: 02/07/18 10:00 Dose: Not Given Pantoprazole Sodium (Protonix Ec Tab) 40 mg PO DAILY [facility] Last Admin: 02/12/18 10:59 Dose: 40 mg Tiotropium [place] (Spiriva) 18 mcg INH RQ24 [facility] Last Admin: 02/12/18 13:42 Dose: 18 mcg - Labs Labs: 02/12/18 06:00 02/12/18 06:00 PT 15.9 SECONDS (9.7-12.2) H 01/28/18 10:14 INR 1.5 01/28/18 10:14 APTT 30 SECONDS (21-34) 01/28/18 10:14 - Constitutional Appears: Non-toxic, No Acute Distress, Chronically Ill - Head Exam Head Exam: NORMOCEPHALIC - Eye Exam Eye Exam: absent: Scleral icterus - ENT Exam ENT Exam: Mucous Membranes Dry - Neck Exam Neck Exam: absent: Lymphadenopathy - Respiratory Exam Respiratory Exam: Decreased Breath Sounds - Cardiovascular Exam Cardiovascular Exam: REGULAR RHYTHM - GI/Abdominal Exam GI & Abdominal Exam: Distended, Soft - Rectal Exam Rectal Exam: Deferred - Exam Exam: NORMAL INSPECTION - Extremities Exam Extremities Exam: absent: Pedal Edema - Back Exam Back Exam: absent: CVA tenderness (L), CVA tenderness (R) Assessment and Plan (1) CHF (congestive heart failure) Status: Acute (2) COPD exacerbation Status: Acute (3) Dehydration Status: Acute - Assessment and Plan (Free Text) Assessment: d/c IV antibiotics for now reculture prn
[2018-02-13] MEDS: Albuterol-Ipratrop 3 mg / 0.5 (3 ml) UD INH SCH ×4 (01:21→20:04)
[2018-02-13] MEDS: MethylPREDNISolone 40 mg Vial IVP SCH ×2 (06:14→17:16)
[2018-02-13 06:53] LABS: ALB/GLOB RATIO 0.9 (1.0-2.1); ALBUMIN 2.3 g/dL (3.5-5.0); ALT/SGPT 83 U/L (9-52); AST/SGOT 36 U/L (14-36); BLOOD UREA NITROGEN 27 mg/dL (7-17); GFR NON-AFRICAN AMERICAN > 60
[2018-02-13 06:56] LABS: BASO % 0.4 % (0.0-2.0); HEMOGLOBIN 8.2 g/dL (11.0-16.0); LYMPH # 0.1 K/uL (1.0-4.3); MEAN CELL VOLUME 77.5 fL (81.0-99.0); MEAN CORPUSCULAR HEMOGLOBIN 24.9 pg (27.0-31.0); MEAN CORPUSCULAR HGB CONC 32.1 g/dL (33.0-37.0); MEAN PLATELET VOLUME 11.6 fL (7.2-11.7); MONO # 0.3 K/uL (0.0-0.8); MONO % 5.6 % (0.0-10.0); NEUT # 4.2 K/uL (1.8-7.0); NRBC % 0.3 % (0.0-2.0); PLATELET COUNT 62 K/uL (130-400); RED CELL DISTRIBUTION WIDTH 24.3 % (11.5-14.5); WHITE BLOOD COUNT 4.6 K/uL (4.8-10.8)
[2018-02-13] MEDS: Tiotropium 18 mcg Cap For Inhalation INH SCH (07:58)
[2018-02-13] MEDS: (Novolog) Insulin Aspart, Recombinant 100 u/ml 10 ml vial SC SCH ×4 (08:27→21:06)
[2018-02-13 08:32] LABS: ANISOCYTOSIS MODERATE; BANDS 3 % (0-2); HYPOCHROMIC MODERATE; LYMPHOCYTE 2 % (20-40); MONOCYTE 6 % (0-10); NEUTROPHIL 89 % (50-75); PLATELET ESTIMATE DECREASED (NORMAL); TOTAL CELLS COUNTED 100
[2018-02-13] MEDS: Enoxaparin 40 mg Syringe SC SCH (09:47)
[2018-02-13] MEDS: Pantoprazole 40 mg EC Tab PO SCH (09:47)
[2018-02-13] MEDS: Metoprolol Succinate 50 mg XL Tab PO SCH (09:47)
--- NOTE | 2018-02-13 12:43 | CT ---
Date of service: 02/13/2018 PROCEDURE: CT Chest without contrast HISTORY: Assess effusions COMPARISON: Comparison chest x-ray dated 02/10/2018. Comparison also made with CTA of the chest dated 02/06/2018. TECHNIQUE: Contiguous axial images were obtained through the chest without intravenous contrast enhancement. Sagittal and coronal reconstructions were performed. Radiation dose (DLP): 502.2 mGy-cm. This CT exam was performed using one or more of the following dose reduction techniques: Automated exposure control, adjustment of the mA and/or kV according to patient size, and/or use of iterative reconstruction technique. FINDINGS: LUNGS: Small to medium-sized right-sided effusion with mild moderate atelectasis. Small left-sided effusion with mild left-sided atelectasis as well . Scattered areas of ground-glass opacities/alveolar-type infiltrates with scattered small nodular opacities. Collectively findings consistent with mild pulmonary venous congestion. Note that superimposed pneumonia cannot be completely excluded. MEDIASTINUM: Unremarkable thoracic aorta. No aneurysm. Main pulmonary artery unremarkable. Multiple small to mildly enlarged mediastinal lymph nodes. . There are multiple of and small to enlarged bilateral axillary lymph nodes as well. Retrocrural adenopathy present PLEURA: As above. No evidence of pneumothorax. BONES: Mild multilevel degenerative spondylosis of the thoracic spine. No acute compression fractures no retropulsed fragments. UPPER ABDOMEN: Spleen is enlarged measuring approximately 14.3 cm in CC dimension. Re- demonstrated is enlarged right adrenal gland with surrounding vague infiltration changes which extend into the superior perinephric fat. Slightly prominent appearing left adrenal gland as well with the very nephric infiltration. Cholelithiasis. Retroperitoneal adenopathy. Suspect few small lymph nodes within the gastrohepatic ligament region. OTHER FINDINGS: None. IMPRESSION: Small to medium-sized right-sided effusion with mild moderate atelectasis. Small left-sided effusion with mild left-sided atelectasis as well . Scattered areas of ground-glass opacities/alveolar-type infiltrates with scattered small nodular opacities. Collectively findings consistent with mild pulmonary venous congestion. Note that superimposed pneumonia cannot be completely excluded. Mediastinal, axillary and upper retroperitoneal adenopathy.
--- NOTE | 2018-02-13 19:38 | CP.PCM.PN ---
Subjective - Date & Time of Evaluation Date of Evaluation: 02/13/18 Time of Evaluation: 07:00 - Subjective Subjective: clinically same Objective - Vital Signs/Intake and Output Vital Signs (last 24 hours): Temp Pulse Resp BP Pulse Ox 99.0 F 86 26 H 113/86 100 02/13/18 15:00 02/13/18 15:00 02/13/18 15:00 02/13/18 15:00 02/13/18 15:00 Intake and Output: 02/13/18 02/14/18 18:59 06:59 Intake Total 240 Balance 240 - Medications Medications: Current Medications Albuterol/Ipratropium (Duoneb 3 Mg/0.5 Mg (3 Ml) Ud) 3 ml INH RQ6 [facility] Last Admin: 02/13/18 13:45 Dose: 3 ml Amlodipine Besylate (Norvasc) 10 mg PO DAILY [facility] Last Admin: 02/13/18 09:47 Dose: 10 mg Bisacodyl (Dulcolax) 10 mg [place] DAILY PRN PRN Reason: Constipation Last Admin: 02/13/18 03:10 Dose: 10 mg Enoxaparin Sodium (Lovenox) 40 mg SC DAILY [facility] Last Admin: 02/13/18 09:47 Dose: 40 mg Hydralazine HCl (Apresoline) 50 mg PO TID [facility] Last Admin: 02/13/18 17:17 Dose: 50 mg Hydralazine HCl (Apresoline) 10 mg IVP Q6H PRN PRN Reason: Other Insulin Aspart (Novolog) 0 unit SC ACHS [facility] PRN Reason: Protocol Last Admin: 02/13/18 12:02 Dose: 2 units Lisinopril (Zestril) 20 mg PO DAILY [facility] Last Admin: 02/12/18 10:59 Dose: 20 mg Methylprednisolone (Solu-Medrol) 40 mg IVP Q12H [facility] Last Admin: 02/13/18 17:16 Dose: 40 mg Metoprolol Succinate (Toprol Xl) 50 mg PO DAILY [facility] Last Admin: 02/13/18 09:47 Dose: 50 mg Multivitamins (Hexavitamin) 1 tab PO DAILY [facility] Last Admin: 02/07/18 10:00 Dose: Not Given Nitrofurantoin Macrocrystals (Macrobid) 100 mg PO Q12H [facility] PRN Reason: Protocol Last Admin: 02/13/18 06:48 Dose: 100 mg Pantoprazole Sodium (Protonix Ec Tab) 40 mg PO DAILY [facility] Last Admin: 02/13/18 09:47 Dose: 40 mg Tiotropium [place] (Spiriva) 18 mcg INH RQ24 [facility] Last Admin: 02/13/18 07:58 Dose: 18 mcg - Labs Labs: 02/13/18 06:40 02/13/18 06:37 PT 15.9 SECONDS (9.7-12.2) H 01/28/18 10:14 INR 1.5 01/28/18 10:14 APTT 30 SECONDS (21-34) 01/28/18 10:14 - Constitutional Appears: Well - Head Exam Head Exam: ATRAUMATIC, NORMAL INSPECTION, NORMOCEPHALIC - Eye Exam Eye Exam: EOMI, Normal appearance, PERRL Pupil Exam: NORMAL ACCOMODATION, PERRL - ENT Exam ENT Exam: Mucous Membranes Moist, Normal Exam - Neck Exam Neck Exam: Full ROM, Normal Inspection. absent: Lymphadenopathy - Respiratory Exam Respiratory Exam: Decreased Breath Sounds - Cardiovascular Exam Cardiovascular Exam: REGULAR RHYTHM, +S1, +S2 - GI/Abdominal Exam GI & Abdominal Exam: Soft, Diminished Bowel Sounds - Rectal Exam Rectal Exam: Deferred
[2018-02-14] MEDS: Albuterol-Ipratrop 3 mg / 0.5 (3 ml) UD INH SCH ×3 (01:38→13:41)
[2018-02-14] MEDS: MethylPREDNISolone 40 mg Vial IVP SCH ×2 (05:56→17:41)
[2018-02-14] MEDS: (Novolog) Insulin Aspart, Recombinant 100 u/ml 10 ml vial SC SCH ×4 (08:23→21:58)
[2018-02-14] MEDS: Pantoprazole 40 mg EC Tab PO SCH (11:46)
[2018-02-14] MEDS: Metoprolol Succinate 50 mg XL Tab PO SCH (11:46)
[2018-02-14] MEDS: Enoxaparin 40 mg Syringe SC SCH (11:46)
[2018-02-14] MEDS: Tiotropium 18 mcg Cap For Inhalation INH SCH (13:41)
--- NOTE | 2018-02-14 15:39 | CP.PCM.PN ---
Subjective - Date & Time of Evaluation Date of Evaluation: 02/14/18 Time of Evaluation: 07:00 - Subjective Subjective: clinically same Objective - Vital Signs/Intake and Output Vital Signs (last 24 hours): Temp Pulse Resp BP Pulse Ox 98.8 F 78 20 117/62 99 02/14/18 08:00 02/14/18 08:00 02/14/18 08:00 02/14/18 08:00 02/14/18 08:00 Intake and Output: 02/14/18 02/14/18 06:59 18:59 Intake Total 100 Output Total 1700 Balance -1600 - Medications Medications: Current Medications Amlodipine Besylate (Norvasc) 10 mg PO DAILY [facility] Last Admin: 02/14/18 11:46 Dose: 10 mg Bisacodyl (Dulcolax) 10 mg [place] DAILY PRN PRN Reason: Constipation Last Admin: 02/13/18 03:10 Dose: 10 mg Enoxaparin Sodium (Lovenox) 40 mg SC DAILY [facility] Last Admin: 02/14/18 11:46 Dose: 40 mg Hydralazine HCl (Apresoline) 50 mg PO TID [facility] Last Admin: 02/14/18 14:53 Dose: Not Given Hydralazine HCl (Apresoline) 10 mg IVP Q6H PRN PRN Reason: Other Insulin Aspart (Novolog) 0 unit SC ACHS [facility] PRN Reason: Protocol Last Admin: 02/14/18 12:18 Dose: 3 units Lisinopril (Zestril) 20 mg PO DAILY [facility] Last Admin: 02/14/18 11:48 Dose: 20 mg Methylprednisolone (Solu-Medrol) 40 mg IVP Q12H [facility] Last Admin: 02/14/18 05:56 Dose: 40 mg Metoprolol Succinate (Toprol Xl) 50 mg PO DAILY [facility] Last Admin: 02/14/18 11:46 Dose: 50 mg Multivitamins (Hexavitamin) 1 tab PO DAILY [facility] Last Admin: 02/07/18 10:00 Dose: Not Given Nitrofurantoin Macrocrystals (Macrobid) 100 mg PO Q12H [facility] PRN Reason: Protocol Last Admin: 02/14/18 05:56 Dose: 100 mg Pantoprazole Sodium (Protonix Ec Tab) 40 mg PO DAILY [facility] Last Admin: 02/14/18 11:46 Dose: 40 mg Tiotropium [place] (Spiriva) 18 mcg INH RQ24 [facility] Last Admin: 02/14/18 13:41 Dose: Not Given - Labs Labs: 02/13/18 06:40 02/13/18 06:37 PT 15.9 SECONDS (9.7-12.2) H 01/28/18 10:14 INR 1.5 01/28/18 10:14 APTT 30 SECONDS (21-34) 01/28/18 10:14 - Constitutional Appears: Well - Head Exam Head Exam: ATRAUMATIC, NORMAL INSPECTION, NORMOCEPHALIC - Eye Exam Eye Exam: EOMI, Normal appearance, PERRL Pupil Exam: NORMAL ACCOMODATION, PERRL - ENT Exam ENT Exam: Mucous Membranes Moist, Normal Exam - Neck Exam Neck Exam: Full ROM, Normal Inspection. absent: Lymphadenopathy - Respiratory Exam Respiratory Exam: Decreased Breath Sounds - Cardiovascular Exam Cardiovascular Exam: REGULAR RHYTHM, +S1, +S2 - GI/Abdominal Exam GI & Abdominal Exam: Soft, Diminished Bowel Sounds - Rectal Exam Rectal Exam: Deferred
[2018-02-15] MEDS: Albuterol-Ipratrop 3 mg / 0.5 (3 ml) UD INH SCH ×4 (01:43→21:11)
[2018-02-15] MEDS: MethylPREDNISolone 40 mg Vial IVP SCH ×2 (05:50→18:07)
[2018-02-15 07:10] LABS: HEMOGLOBIN 7.2 g/dL (11.0-16.0); MEAN CELL VOLUME 75.8 fL (81.0-99.0); MEAN CORPUSCULAR HEMOGLOBIN 24.5 pg (27.0-31.0); MEAN CORPUSCULAR HGB CONC 32.4 g/dL (33.0-37.0); RBC 2.94 Mil/uL (3.80-5.20); RED CELL DISTRIBUTION WIDTH 23.5 % (11.5-14.5); WHITE BLOOD COUNT 3.4 K/uL (4.8-10.8)
[2018-02-15 07:46] LABS: ALB/GLOB RATIO 0.9 (1.0-2.1); ALBUMIN 2.2 g/dL (3.5-5.0); ALT/SGPT 96 U/L (9-52); AST/SGOT 34 U/L (14-36); BLOOD UREA NITROGEN 26 mg/dL (7-17); CALCIUM 9.2 mg/dl (8.6-10.4); GFR NON-AFRICAN AMERICAN > 60
[2018-02-15] MEDS: (Novolog) Insulin Aspart, Recombinant 100 u/ml 10 ml vial SC SCH ×4 (08:00→21:54)
[2018-02-15] MEDS: Tiotropium 18 mcg Cap For Inhalation INH SCH (08:45)
[2018-02-15] MEDS: Pantoprazole 40 mg EC Tab PO SCH (13:04)
[2018-02-15] MEDS: Metoprolol Succinate 50 mg XL Tab PO SCH (13:15)
--- NOTE | 2018-02-15 13:18 | CP.PCM.PN ---
Subjective - Date & Time of Evaluation Date of Evaluation: 02/15/18 Time of Evaluation: 07:00 - Subjective Subjective: clinically same Objective - Vital Signs/Intake and Output Vital Signs (last 24 hours): Temp Pulse Resp BP Pulse Ox 98.2 F 89 20 129/67 96 02/15/18 00:00 02/15/18 00:00 02/15/18 05:14 02/15/18 00:00 02/15/18 00:00 Intake and Output: 02/15/18 02/15/18 06:59 18:59 Intake Total 250 Balance 250 - Medications Medications: Current Medications Acetaminophen (Tylenol 325mg Tab) 650 mg PO Q6 PRN PRN Reason: pain Last Admin: 02/15/18 06:02 Dose: 650 mg Albuterol/Ipratropium (Duoneb 3 Mg/0.5 Mg (3 Ml) Ud) 3 ml INH RQ6 [facility] Last Admin: 02/15/18 08:39 Dose: 3 ml Amlodipine Besylate (Norvasc) 10 mg PO DAILY [facility] Last Admin: 02/15/18 13:03 Dose: 10 mg Bisacodyl (Dulcolax) 10 mg [place] DAILY PRN PRN Reason: Constipation Last Admin: 02/13/18 03:10 Dose: 10 mg Hydralazine HCl (Apresoline) 50 mg PO TID [facility] Last Admin: 02/15/18 13:02 Dose: 50 mg Hydralazine HCl (Apresoline) 10 mg IVP Q6H PRN PRN Reason: Other Insulin Aspart (Novolog) 0 unit SC ACHS [facility] PRN Reason: Protocol Last Admin: 02/15/18 12:36 Dose: Not Given Lisinopril (Zestril) 20 mg PO DAILY [facility] Last Admin: 02/15/18 13:04 Dose: 20 mg Methylprednisolone (Solu-Medrol) 40 mg IVP Q12H [facility] Last Admin: 02/15/18 05:50 Dose: 40 mg Metoprolol Succinate (Toprol Xl) 50 mg PO DAILY [facility] Last Admin: 02/15/18 13:15 Dose: 50 mg Multivitamins (Hexavitamin) 1 tab PO DAILY [facility] Last Admin: 02/07/18 10:00 Dose: Not Given Nitrofurantoin Macrocrystals (Macrobid) 100 mg PO Q12H [facility] PRN Reason: Protocol Last Admin: 02/15/18 05:48 Dose: 100 mg Pantoprazole Sodium (Protonix Ec Tab) 40 mg PO DAILY [facility] Last Admin: 02/15/18 13:04 Dose: 40 mg Tiotropium [place] (Spiriva) 18 mcg INH RQ24 [facility] Last Admin: 02/14/18 13:41 Dose: Not Given - Labs Labs: 02/15/18 07:03 02/15/18 07:03 PT 15.9 SECONDS (9.7-12.2) H 01/28/18 10:14 INR 1.5 01/28/18 10:14 APTT 30 SECONDS (21-34) 01/28/18 10:14 - Constitutional Appears: Well - Head Exam Head Exam: ATRAUMATIC, NORMAL INSPECTION, NORMOCEPHALIC - Eye Exam Eye Exam: EOMI, Normal appearance, PERRL Pupil Exam: NORMAL ACCOMODATION, PERRL - ENT Exam ENT Exam: Mucous Membranes Moist, Normal Exam - Neck Exam Neck Exam: Full ROM, Normal Inspection. absent: Lymphadenopathy - Respiratory Exam Respiratory Exam: Decreased Breath Sounds - Cardiovascular Exam Cardiovascular Exam: REGULAR RHYTHM, +S1, +S2 - GI/Abdominal Exam GI & Abdominal Exam: Soft, Diminished Bowel Sounds - Rectal Exam Rectal Exam: Deferred
[2018-02-15] MEDS ORDERED: MethylPREDNISolone 40 mg Vial IVP PRN ×2 (13:20→13:38)
[2018-02-16] MEDS: Albuterol-Ipratrop 3 mg / 0.5 (3 ml) UD INH SCH ×4 (01:05→20:34)
[2018-02-16] MEDS: MethylPREDNISolone 40 mg Vial IVP SCH ×3 (05:06→21:08)
[2018-02-16 06:42] LABS: BASO % 0.5 % (0.0-2.0); HEMOGLOBIN 9.5 g/dL (11.0-16.0); LYMPH # 0.1 K/uL (1.0-4.3); LYMPH % 3.6 % (20.0-40.0); MEAN CELL VOLUME 78.5 fL (81.0-99.0); MEAN CORPUSCULAR HGB CONC 33.1 g/dL (33.0-37.0); MEAN PLATELET VOLUME 10.3 fL (7.2-11.7); MONO # 0.2 K/uL (0.0-0.8); MONO % 4.7 % (0.0-10.0); NEUT # 3.6 K/uL (1.8-7.0); NEUT % 91.2 % (50.0-75.0); NRBC % 0.4 % (0.0-2.0); PLATELET COUNT 64 K/uL (130-400); RBC 3.64 Mil/uL (3.80-5.20); RED CELL DISTRIBUTION WIDTH 22.2 % (11.5-14.5); WHITE BLOOD COUNT 3.9 K/uL (4.8-10.8)
[2018-02-16 06:59] LABS: ALB/GLOB RATIO 0.9 (1.0-2.1); ALBUMIN 2.2 g/dL (3.5-5.0); ALT/SGPT 133 U/L (9-52); AST/SGOT 59 U/L (14-36); BLOOD UREA NITROGEN 25 mg/dL (7-17); CALCIUM 8.7 mg/dl (8.6-10.4); GFR NON-AFRICAN AMERICAN > 60
[2018-02-16] MEDS: (Novolog) Insulin Aspart, Recombinant 100 u/ml 10 ml vial SC SCH ×4 (07:35→21:14)
[2018-02-16 08:59] LABS: LYMPHOCYTE 6 % (20-40); TOTAL CELLS COUNTED 100
[2018-02-16 09:00] LABS: ANISOCYTOSIS SLIGHT; HYPOCHROMIC SLIGHT; MONOCYTE 2 % (0-10); NEUTROPHIL 92 % (50-75); PLATELET ESTIMATE DECREASED (NORMAL)
[2018-02-16 09:01] LABS: POLYCHROMIC SLIGHT
[2018-02-16] MEDS: Metoprolol Succinate 50 mg XL Tab PO SCH (11:00)
[2018-02-16] MEDS: Multiple Vitamins Tab PO SCH (11:00)
[2018-02-16] MEDS: Pantoprazole 40 mg EC Tab PO SCH (11:00)
[2018-02-16] MEDS: Tiotropium 18 mcg Cap For Inhalation INH SCH (11:00)
[2018-02-16] MEDS ORDERED: Sodium Chloride 0.9% 250 ML IV ONE (12:00)
[2018-02-16] MEDS ORDERED: SODIUM CHLORIDE 0.9% IV ONE ×2 (12:30→15:30)
[2018-02-16] MEDS ORDERED: DEXAMETHASONE IV ONE (12:30)
[2018-02-16] MEDS ORDERED: ONDANSETRON IV ONE (12:30)
[2018-02-16] MEDS ORDERED: DOXORUBICIN IVP ONE ×2 (15:00→15:05)
[2018-02-16] MEDS ORDERED: PREMIXED IVP ONE ×2 (15:00→15:05)
[2018-02-16] MEDS ORDERED: VINCRISTINE IV ONE (15:30)
--- NOTE | 2018-02-16 23:39 | CON ---
Copied To: Brodie Krueger MD Attending MD: Brodie Krueger MD DATE: 02/16/2018 ONCOLOGY CONSULTATION This is a followup consultation on a 72-year-old woman with widespread lymphoma. I have spoken to both nurses and the patient, and again we went over it again today with the daughter Hellen and the patient again at the bedside. She is a full code, they very much wanted to have subacute therapy. I explained that the chemotherapy in itself can cause many side effects, which they have , anemia, infection, and . I have also explained that untreated, she is going to from the lymphoma that is progressive. They all agree on that too. At the patient's bedside, I gave her 2 units of packed cells yesterday. She does feel better today. She states she is breathing better. We are going to give Cytoxan, Adriamycin, and vincristine. She has been on steroids. I held the Rituxan because she is an inpatient and along with the dosage, I have also arranged for her to get Epogen daily for the next 5 days. So, we will see how she does and the next chemo will be in about 3 weeks. Brodie Krueger MD
[2018-02-17] MEDS: Albuterol-Ipratrop 3 mg / 0.5 (3 ml) UD INH SCH ×5 (02:32→19:32)
[2018-02-17] MEDS: (Novolog) Insulin Aspart, Recombinant 100 u/ml 10 ml vial SC SCH ×4 (08:03→21:45)
[2018-02-17] MEDS: MethylPREDNISolone 40 mg Vial IVP SCH ×2 (09:21→21:40)
[2018-02-17] MEDS: Pantoprazole 40 mg EC Tab PO SCH (10:14)
[2018-02-17] MEDS: Multiple Vitamins Tab PO SCH (10:14)
[2018-02-17] MEDS: Metoprolol Succinate 50 mg XL Tab PO SCH (10:15)
[2018-02-17] MEDS: Tiotropium 18 mcg Cap For Inhalation INH SCH (10:25)
--- NOTE | 2018-02-17 17:41 | CP.PCM.PN ---
Subjective - Date & Time of Evaluation Date of Evaluation: 02/17/18 Time of Evaluation: 07:00 - Subjective Subjective: clinically same Objective - Vital Signs/Intake and Output Vital Signs (last 24 hours): Temp Pulse Resp BP Pulse Ox 98.9 F 84 20 150/73 95 02/17/18 07:36 02/17/18 07:36 02/17/18 07:37 02/17/18 07:36 02/17/18 07:36 Intake and Output: 02/17/18 02/17/18 06:59 18:59 Intake Total 380 320 Output Total 500 600 Balance -120 -280 - Medications Medications: Current Medications Acetaminophen (Tylenol 325mg Tab) 650 mg PO Q6 PRN PRN Reason: pain Last Admin: 02/17/18 17:35 Dose: 650 mg Albuterol/Ipratropium (Duoneb 3 Mg/0.5 Mg (3 Ml) Ud) 3 ml INH RQ6 [facility] Last Admin: 02/17/18 13:39 Dose: 3 ml Amlodipine Besylate (Norvasc) 10 mg PO DAILY [facility] Last Admin: 02/17/18 10:14 Dose: 10 mg Bisacodyl (Dulcolax) 10 mg [place] DAILY PRN PRN Reason: Constipation Last Admin: 02/16/18 19:08 Dose: 10 mg Furosemide (Lasix) 20 mg IVP ONCE PRN PRN Reason: Before 2nd Unit of PRBC Last Admin: 02/16/18 02:34 Dose: 20 mg Hydralazine HCl (Apresoline) 50 mg PO TID [facility] Last Admin: 02/17/18 13:56 Dose: 50 mg Hydralazine HCl (Apresoline) 10 mg IVP Q6H PRN PRN Reason: Other Insulin Aspart (Novolog) 0 unit SC ACHS [facility] PRN Reason: Protocol Last Admin: 02/17/18 12:17 Dose: 2 units Lisinopril (Zestril) 20 mg PO DAILY [facility] Last Admin: 02/17/18 10:33 Dose: 20 mg Methylprednisolone (Solu-Medrol) 20 mg IVP ONCE PRN PRN Reason: Give before 1st unit of PRBC Last Admin: 02/15/18 16:45 Dose: 20 mg Methylprednisolone (Solu-Medrol) 20 mg IVP ONCE PRN PRN Reason: give befor 2nd units of PRBC Last Admin: 02/16/18 02:35 Dose: 20 mg Methylprednisolone (Solu-Medrol) 20 mg IVP Q12H [facility] Last Admin: 02/17/18 09:21 Dose: 20 mg Metoprolol Succinate (Toprol Xl) 50 mg PO DAILY [facility] Last Admin: 02/17/18 10:15 Dose: 50 mg Multivitamins (Hexavitamin) 1 tab PO DAILY [facility] Last Admin: 02/17/18 10:14 Dose: 1 tab Ondansetron HCl (Zofran Inj) 8 mg IVP Q8 PRN PRN Reason: Nausea/Vomiting Stop: 02/18/18 10:00 Pantoprazole Sodium (Protonix Ec Tab) 40 mg PO DAILY [facility] Last Admin: 02/17/18 10:14 Dose: 40 mg Tiotropium [place] (Spiriva) 18 mcg INH RQ24 [facility] Last Admin: 02/17/18 10:25 Dose: 18 mcg - Labs Labs: 02/16/18 06:39 02/16/18 06:39 PT 15.9 SECONDS (9.7-12.2) H 01/28/18 10:14 INR 1.5 01/28/18 10:14 APTT 30 SECONDS (21-34) 01/28/18 10:14 - Constitutional Appears: Well - Head Exam Head Exam: ATRAUMATIC, NORMAL INSPECTION, NORMOCEPHALIC - Eye Exam Eye Exam: EOMI, Normal appearance, PERRL Pupil Exam: NORMAL ACCOMODATION, PERRL - ENT Exam ENT Exam: Mucous Membranes Moist, Normal Exam - Neck Exam Neck Exam: Full ROM, Normal Inspection. absent: Lymphadenopathy - Respiratory Exam Respiratory Exam: Decreased Breath Sounds - Cardiovascular Exam Cardiovascular Exam: REGULAR RHYTHM, +S1, +S2 - GI/Abdominal Exam GI & Abdominal Exam: Soft, Diminished Bowel Sounds - Rectal Exam Rectal Exam: Deferred
[2018-02-17] MEDS ORDERED: Simethicone 80 mg Chewtab PO PRN (20:31)
[2018-02-18] MEDS: Albuterol-Ipratrop 3 mg / 0.5 (3 ml) UD INH SCH ×5 (01:41→20:38)
[2018-02-18] MEDS: Tiotropium 18 mcg Cap For Inhalation INH SCH (07:47)
[2018-02-18] MEDS: (Novolog) Insulin Aspart, Recombinant 100 u/ml 10 ml vial SC SCH ×4 (07:51→22:11)
[2018-02-18] MEDS: Pantoprazole 40 mg EC Tab PO SCH (09:38)
[2018-02-18] MEDS: Metoprolol Succinate 50 mg XL Tab PO SCH (09:38)
[2018-02-18] MEDS: Multiple Vitamins Tab PO SCH (09:38)
[2018-02-18] MEDS: MethylPREDNISolone 40 mg Vial IVP SCH ×2 (09:39→21:17)
[2018-02-18 12:02] LABS: MEAN CORPUSCULAR HEMOGLOBIN 26.1 pg (27.0-31.0); MONO # 0.1 K/uL (0.0-0.8)
[2018-02-18 12:13] LABS: BASO % 0.2 % (0.0-2.0); HEMOGLOBIN 8.5 g/dL (11.0-16.0); LYMPH % 0.5 % (20.0-40.0); MEAN CELL VOLUME 78.9 fL (81.0-99.0); MEAN CORPUSCULAR HGB CONC 33.1 g/dL (33.0-37.0); MEAN PLATELET VOLUME 10.1 fL (7.2-11.7); MONO % 1.1 % (0.0-10.0); NEUT # 6.6 K/uL (1.8-7.0); NEUT % 98.2 % (50.0-75.0); RBC 3.24 Mil/uL (3.80-5.20); RED CELL DISTRIBUTION WIDTH 22.2 % (11.5-14.5)
[2018-02-18 12:15] LABS: PLATELET COUNT 38 K/uL (130-400); WHITE BLOOD COUNT 6.8 K/uL (4.8-10.8)
[2018-02-18 12:39] LABS: ALB/GLOB RATIO 0.8 (1.0-2.1); ALBUMIN 1.9 g/dL (3.5-5.0); ALT/SGPT 105 U/L (9-52); ANISOCYTOSIS MODERATE; AST/SGOT 39 U/L (14-36); BANDS 18 % (0-2); BLOOD UREA NITROGEN 31 mg/dL (7-17); CALCIUM 8.5 mg/dl (8.6-10.4); GFR NON-AFRICAN AMERICAN > 60; MONOCYTE 1 % (0-10); NEUTROPHIL 81 % (50-75); PLATELET ESTIMATE MARKEDLY DECREASED (NORMAL); POIKILOCYTOSIS SLIGHT; TOTAL CELLS COUNTED 100
[2018-02-18 12:40] LABS: HYPOCHROMIC SLIGHT; TARGET CELLS SLIGHT
--- NOTE | 2018-02-18 15:22 | CP.PCM.PN ---
Subjective - Date & Time of Evaluation Date of Evaluation: 02/18/18 Time of Evaluation: 03:00 - Subjective Subjective: dictated Objective - Vital Signs/Intake and Output Vital Signs (last 24 hours): Temp Pulse Resp BP Pulse Ox 97.5 F L 74 20 106/63 98 02/18/18 07:54 02/18/18 07:54 02/18/18 13:14 02/18/18 07:54 02/18/18 07:54 Intake and Output: 02/18/18 02/18/18 06:59 18:59 Intake Total 250 200 Output Total 200 200 Balance 50 0 - Medications Medications: Current Medications Acetaminophen (Tylenol 325mg Tab) 650 mg PO Q6 PRN PRN Reason: pain Last Admin: 02/18/18 03:39 Dose: 650 mg Albuterol/Ipratropium (Duoneb 3 Mg/0.5 Mg (3 Ml) Ud) 3 ml INH RQ6 [facility] Last Admin: 02/18/18 13:14 Dose: Not Given Amlodipine Besylate (Norvasc) 10 mg PO DAILY [facility] Last Admin: 02/18/18 09:38 Dose: 10 mg Bisacodyl (Dulcolax) 10 mg [place] DAILY PRN PRN Reason: Constipation Last Admin: 02/16/18 19:08 Dose: 10 mg Furosemide (Lasix) 20 mg IVP ONCE PRN PRN Reason: Before 2nd Unit of PRBC Last Admin: 02/16/18 02:34 Dose: 20 mg Hydralazine HCl (Apresoline) 50 mg PO TID [facility] Last Admin: 02/18/18 14:22 Dose: 50 mg Hydralazine HCl (Apresoline) 10 mg IVP Q6H PRN PRN Reason: Other Insulin Aspart (Novolog) 0 unit [facility] PRN Reason: Protocol Last Admin: 02/18/18 11:50 Dose: 258 units Lisinopril (Zestril) 20 mg PO DAILY [facility] Last Admin: 02/18/18 09:38 Dose: 20 mg Methylprednisolone (Solu-Medrol) 20 mg IVP ONCE PRN PRN Reason: Give before 1st unit of PRBC Last Admin: 02/15/18 16:45 Dose: 20 mg Methylprednisolone (Solu-Medrol) 20 mg IVP ONCE PRN PRN Reason: give befor 2nd units of PRBC Last Admin: 02/16/18 02:35 Dose: 20 mg Methylprednisolone (Solu-Medrol) 20 mg IVP Q12H [facility] Last Admin: 02/18/18 09:39 Dose: 20 mg Metoprolol Succinate (Toprol Xl) 50 mg PO DAILY [facility] Last Admin: 02/18/18 09:38 Dose: 50 mg Multivitamins (Hexavitamin) 1 tab PO DAILY [facility] Last Admin: 02/18/18 09:38 Dose: 1 tab Pantoprazole Sodium (Protonix Ec Tab) 40 mg PO DAILY [facility] Last Admin: 02/18/18 09:38 Dose: 40 mg Simethicone (Mylicon Chew Tab) 80 mg PO Q8 PRN PRN Reason: GI distress Tiotropium [place] (Spiriva) 18 mcg INH RQ24 [facility] Last Admin: 02/18/18 07:47 Dose: 18 mcg - Labs Labs: 02/18/18 11:44 02/18/18 11:44 PT 15.9 SECONDS (9.7-12.2) H 01/28/18 10:14 INR 1.5 01/28/18 10:14 APTT 30 SECONDS (21-34) 01/28/18 10:14
--- NOTE | 2018-02-18 17:43 | CP.PCM.PN ---
Subjective - Date & Time of Evaluation Date of Evaluation: 02/18/18 Time of Evaluation: 07:00 - Subjective Subjective: clinically same Objective - Vital Signs/Intake and Output Vital Signs (last 24 hours): Temp Pulse Resp BP Pulse Ox 98.1 F 88 20 121/61 95 02/18/18 16:00 02/18/18 16:00 02/18/18 16:00 02/18/18 16:00 02/18/18 16:00 Intake and Output: 02/18/18 02/18/18 06:59 18:59 Intake Total 250 200 Output Total 200 200 Balance 50 0 - Medications Medications: Current Medications Acetaminophen (Tylenol 325mg Tab) 650 mg PO Q6 PRN PRN Reason: pain Last Admin: 02/18/18 03:39 Dose: 650 mg Albuterol/Ipratropium (Duoneb 3 Mg/0.5 Mg (3 Ml) Ud) 3 ml INH RQ6 [facility] Last Admin: 02/18/18 13:14 Dose: Not Given Amlodipine Besylate (Norvasc) 10 mg PO DAILY [facility] Last Admin: 02/18/18 09:38 Dose: 10 mg Bisacodyl (Dulcolax) 10 mg [place] DAILY PRN PRN Reason: Constipation Last Admin: 02/16/18 19:08 Dose: 10 mg Furosemide (Lasix) 20 mg IVP ONCE PRN PRN Reason: Before 2nd Unit of PRBC Last Admin: 02/16/18 02:34 Dose: 20 mg Hydralazine HCl (Apresoline) 50 mg PO TID [facility] Last Admin: 02/18/18 14:22 Dose: 50 mg Hydralazine HCl (Apresoline) 10 mg IVP Q6H PRN PRN Reason: Other Insulin Aspart (Novolog) 0 unit SC [facility] PRN Reason: Protocol Last Admin: 02/18/18 11:50 Dose: 258 units Lisinopril (Zestril) 20 mg PO DAILY [facility] Last Admin: 02/18/18 09:38 Dose: 20 mg Methylprednisolone (Solu-Medrol) 20 mg IVP ONCE PRN PRN Reason: Give before 1st unit of PRBC Last Admin: 02/15/18 16:45 Dose: 20 mg Methylprednisolone (Solu-Medrol) 20 mg IVP ONCE PRN PRN Reason: give befor 2nd units of PRBC Last Admin: 02/16/18 02:35 Dose: 20 mg Methylprednisolone (Solu-Medrol) 20 mg IVP Q12H [facility] Last Admin: 02/18/18 09:39 Dose: 20 mg Metoprolol Succinate (Toprol Xl) 50 mg PO DAILY [facility] Last Admin: 02/18/18 09:38 Dose: 50 mg Multivitamins (Hexavitamin) 1 tab PO DAILY [facility] Last Admin: 02/18/18 09:38 Dose: 1 tab Pantoprazole Sodium (Protonix Ec Tab) 40 mg PO DAILY [facility] Last Admin: 02/18/18 09:38 Dose: 40 mg Simethicone (Mylicon Chew Tab) 80 mg PO Q8 PRN PRN Reason: GI distress Tiotropium [place] (Spiriva) 18 mcg INH RQ24 [facility] Last Admin: 02/18/18 07:47 Dose: 18 mcg - Labs Labs: 02/18/18 11:44 02/18/18 11:44 PT 15.9 SECONDS (9.7-12.2) H 01/28/18 10:14 INR 1.5 01/28/18 10:14 APTT 30 SECONDS (21-34) 01/28/18 10:14 - Constitutional Appears: Well - Head Exam Head Exam: ATRAUMATIC, NORMAL INSPECTION, NORMOCEPHALIC - Eye Exam Eye Exam: EOMI, Normal appearance, PERRL Pupil Exam: NORMAL ACCOMODATION, PERRL - ENT Exam ENT Exam: Mucous Membranes Moist, Normal Exam - Neck Exam Neck Exam: Full ROM, Normal Inspection. 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
--- NOTE | 2018-02-18 18:45 | PN ---
Copied To: Hernan Amin MD Attending MD: Hernan Amin MD DATE: 02/18/2018 INFECTIOUS DISEASE FOLLOWUP NOTE SUBJECTIVE: I was called because of bandemia. PHYSICAL EXAMINATION: GENERAL: The patient is afebrile, awake. She opens her eyes and appears to be in no acute respiratory distress. Has mild cough. VITAL SIGNS: T max is 97.5, pulse 74, blood pressure 106/63, respirations are 20. She is on oxygen. NECK: Supple. LUNGS: Clear. HEART: S1, S2 is regular. ABDOMEN: Soft, nontender. No guarding, no rigidity present. She is on CBI. EXTREMITIES: Have mild edema 1+. LABORATORY DATA: Labs are noted. Labs show white count is 6.8, hemoglobin 8.5, hematocrit 25.6, platelet count is only 38 and bands are 18, neutrophils are 81 and she is on Neupogen and that I see. ASSESSMENT AND PLAN: Micro caro, she was treated for UTI by Dr. Mccollum, and on 02/12, discontinued all antibiotics, and at this time, the patient is off antibiotics and appears her numbers are most likely post chemo with Neupogen or Granix. Her bands are increased but does not appear septic. We will need to follow with the hematology oncologist who knows her better. Hernan Amin MD
--- NOTE | 2018-02-18 19:39 | PN ---
Copied To: Brodie Krueger MD Attending MD: Brodie Krueger MD DATE: 02/18/2018 FOLLOWUP CONSULTATION HISTORY OF PRESENT ILLNESS: She received her initial chemotherapy with attenuated dose of Cytoxan, Adriamycin, and vincristine, and she is getting Neupogen now. I spoke with the daughter today. She is very-very weak. She is able to sit up in a chair. She is on oxygen at all times and she is still pretty weak and has lost certain amount of weight. I told them the next treatment will be in 3 weeks, but right now, she has to be followed up. She is on the steroids and I will put her on the Neupogen. Brodie Krueger MD
[2018-02-19] MEDS: Albuterol-Ipratrop 3 mg / 0.5 (3 ml) UD INH SCH ×4 (01:26→19:27)
[2018-02-19] MEDS: (Novolog) Insulin Aspart, Recombinant 100 u/ml 10 ml vial SC SCH ×4 (08:03→22:00)
[2018-02-19] MEDS: Metoprolol Succinate 50 mg XL Tab PO SCH (09:46)
[2018-02-19] MEDS: Multiple Vitamins Tab PO SCH (09:46)
[2018-02-19] MEDS: Pantoprazole 40 mg EC Tab PO SCH (09:46)
[2018-02-19] MEDS: MethylPREDNISolone 40 mg Vial IVP SCH ×2 (09:47→20:47)
[2018-02-19] MEDS: Tiotropium 18 mcg Cap For Inhalation INH SCH (10:25)
--- NOTE | 2018-02-19 19:09 | CP.PCM.PN ---
Subjective - Date & Time of Evaluation Date of Evaluation: 02/19/18 Time of Evaluation: 07:00 - Subjective Subjective: clinically same Objective - Vital Signs/Intake and Output Vital Signs (last 24 hours): Temp Pulse Resp BP Pulse Ox 98.2 F 80 20 126/58 L 95 02/19/18 16:03 02/19/18 16:03 02/19/18 16:03 02/19/18 16:03 02/19/18 16:03 - Medications Medications: Current Medications Acetaminophen (Tylenol 325mg Tab) 650 mg PO Q6 PRN PRN Reason: pain Last Admin: 02/18/18 21:16 Dose: 650 mg Albuterol/Ipratropium (Duoneb 3 Mg/0.5 Mg (3 Ml) Ud) 3 ml INH RQ6 [facility] Last Admin: 02/19/18 13:50 Dose: 3 ml Amlodipine Besylate (Norvasc) 10 mg PO DAILY [facility] Last Admin: 02/19/18 09:46 Dose: 10 mg Bisacodyl (Dulcolax) [address] [place] DAILY PRN PRN Reason: Constipation Last Admin: 02/16/18 19:08 Dose: 10 mg Furosemide (Lasix) 20 mg IVP ONCE PRN PRN Reason: Before 2nd Unit of PRBC Last Admin: 02/16/18 02:34 Dose: 20 mg Hydralazine HCl (Apresoline) 50 mg PO TID [facility] Last Admin: 02/19/18 17:44 Dose: 50 mg Hydralazine HCl (Apresoline) 10 mg IVP Q6H PRN PRN Reason: Other Insulin Aspart (Novolog) 0 unit [place] [facility] PRN Reason: Protocol Last Admin: 02/19/18 17:44 Dose: 4 units Lisinopril (Zestril) 20 mg PO DAILY [facility] Last Admin: 02/19/18 09:47 Dose: 20 mg Methylprednisolone (Solu-Medrol) 20 mg IVP ONCE PRN PRN Reason: Give before 1st unit of PRBC Last Admin: 02/15/18 16:45 Dose: 20 mg Methylprednisolone (Solu-Medrol) 20 mg IVP ONCE PRN PRN Reason: give befor 2nd units of PRBC Last Admin: 02/16/18 02:35 Dose: 20 mg Methylprednisolone (Solu-Medrol) 20 mg IVP Q12H [facility] Last Admin: 02/19/18 09:47 Dose: 20 mg Metoprolol Succinate (Toprol Xl) 50 mg PO DAILY [facility] Last Admin: 02/19/18 09:46 Dose: 50 mg Multivitamins (Hexavitamin) 1 tab PO DAILY [facility] Last Admin: 02/19/18 09:46 Dose: 1 tab Pantoprazole Sodium (Protonix Ec Tab) 40 mg PO DAILY [facility] Last Admin: 02/19/18 09:46 Dose: 40 mg Simethicone (Mylicon Chew Tab) 80 mg PO Q8 PRN PRN Reason: GI distress Last Admin: 02/18/18 20:28 Dose: 80 mg Tiotropium [place] (Spiriva) 18 mcg INH RQ24 [facility] Last Admin: 02/19/18 10:25 Dose: 18 mcg - Labs Labs: 02/18/18 11:44 02/18/18 11:44 PT 15.9 SECONDS (9.7-12.2) H 01/28/18 10:14 INR 1.5 01/28/18 10:14 APTT 30 SECONDS (21-34) 01/28/18 10:14 - Constitutional Appears: Well - Head Exam Head Exam: ATRAUMATIC, NORMAL INSPECTION, NORMOCEPHALIC - Eye Exam Eye Exam: EOMI, Normal appearance, PERRL Pupil Exam: NORMAL ACCOMODATION, PERRL - ENT Exam ENT Exam: Mucous Membranes Moist, Normal Exam - Neck Exam Neck Exam: Full ROM, Normal Inspection. 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
--- NOTE | 2018-02-19 20:36 | CP.PCM.PN ---
Subjective - Date & Time of Evaluation Date of Evaluation: 02/19/18 Time of Evaluation: 13:00 - Subjective Subjective: dictated Objective - Vital Signs/Intake and Output Vital Signs (last 24 hours): Temp Pulse Resp BP Pulse Ox 98.2 F 80 20 126/58 L 95 02/19/18 16:03 02/19/18 16:03 02/19/18 16:03 02/19/18 16:03 02/19/18 16:03 - Medications Medications: Current Medications Acetaminophen (Tylenol 325mg Tab) 650 mg PO Q6 PRN PRN Reason: pain Last Admin: 02/18/18 21:16 Dose: 650 mg Albuterol/Ipratropium (Duoneb 3 Mg/0.5 Mg (3 Ml) Ud) 3 ml INH RQ6 [facility] Last Admin: 02/19/18 19:27 Dose: 3 ml Amlodipine Besylate (Norvasc) 10 mg PO DAILY [facility] Last Admin: 02/19/18 09:46 Dose: 10 mg Bisacodyl (Dulcolax) 10 mg [place] DAILY PRN PRN Reason: Constipation Last Admin: 02/16/18 19:08 Dose: 10 mg Furosemide (Lasix) 20 mg IVP ONCE PRN PRN Reason: Before 2nd Unit of PRBC Last Admin: 02/16/18 02:34 Dose: 20 mg Hydralazine HCl (Apresoline) 50 mg PO TID [facility] Last Admin: 02/19/18 17:44 Dose: 50 mg Hydralazine HCl (Apresoline) 10 mg IVP Q6H PRN PRN Reason: Other Insulin Aspart (Novolog) 0 unit SC [facility] PRN Reason: Protocol Last Admin: 02/19/18 17:44 Dose: 4 units Lisinopril (Zestril) 20 mg PO DAILY [facility] Last Admin: 02/19/18 09:47 Dose: 20 mg Methylprednisolone (Solu-Medrol) 20 mg IVP ONCE PRN PRN Reason: Give before 1st unit of PRBC Last Admin: 02/15/18 16:45 Dose: 20 mg Methylprednisolone (Solu-Medrol) 20 mg IVP ONCE PRN PRN Reason: give befor 2nd units of PRBC Last Admin: 02/16/18 02:35 Dose: 20 mg Methylprednisolone (Solu-Medrol) 20 mg IVP Q12H [facility] Last Admin: 02/19/18 09:47 Dose: 20 mg Metoprolol Succinate (Toprol Xl) 50 mg PO DAILY [facility] Last Admin: 02/19/18 09:46 Dose: 50 mg Multivitamins (Hexavitamin) 1 tab PO DAILY [facility] Last Admin: 02/19/18 09:46 Dose: 1 tab Pantoprazole Sodium (Protonix Ec Tab) 40 mg PO DAILY [facility] Last Admin: 02/19/18 09:46 Dose: 40 mg Simethicone (Mylicon Chew Tab) 80 mg PO Q8 PRN PRN Reason: GI distress Last Admin: 02/18/18 20:28 Dose: 80 mg Tiotropium [place] (Spiriva) 18 mcg INH RQ24 [facility] Last Admin: 02/19/18 10:25 Dose: 18 mcg - Labs Labs: 02/18/18 11:44 02/18/18 11:44 PT 15.9 SECONDS (9.7-12.2) H 01/28/18 10:14 INR 1.5 01/28/18 10:14 APTT 30 SECONDS (21-34) 01/28/18 10:14
--- NOTE | 2018-02-20 01:24 | PN ---
Copied To: Hernan Amin MD Attending MD: Hernan Amin MD DATE: 02/19/2018 SUBJECTIVE: The patient was seen today. She is awake and alert. Does not communicate much. She is recovering. Appears better than yesterday. OBJECTIVE: VITAL SIGNS: T-max is 98.2, pulse 80, blood pressure 126/58, respirations are 20. HEENT: Head is atraumatic, normocephalic. NECK: Supple. LUNGS: Clear. No crackles or rales heard. HEART: S1, S2 regular. ABDOMEN: Soft, nontender. No guarding, no rigidity present. EXTREMITIES: Have no edema. Her white count is 3.9 today, and they did not do any white count, I am going to look up her white count, yesterday, it was 6.8. Hemoglobin 8.5; hematocrit 25.6; platelet count is 38, is low. She is post chemo; and her sodium is 139, potassium 4.1, chloride 102, CO2 is 30, BUN is 31, creatinine 0.5; and she recently had enterococcus which was treated and the antibiotic was discontinued. Her liver enzymes are elevated, probably secondary to the chemotherapy. She appears to be in no acute respiratory distress, low platelets, most likely due to chemo and oncologist is following. Hernan Amin MD
[2018-02-20] MEDS: Albuterol-Ipratrop 3 mg / 0.5 (3 ml) UD INH SCH ×4 (01:35→19:19)
[2018-02-20 07:21] LABS: HEMOGLOBIN 7.9 g/dL (11.0-16.0)
[2018-02-20 07:32] LABS: MEAN CORPUSCULAR HEMOGLOBIN 26.3 pg (27.0-31.0); MEAN CORPUSCULAR HGB CONC 33.3 g/dL (33.0-37.0); MEAN PLATELET VOLUME 9.7 fL (7.2-11.7); RBC 3.01 Mil/uL (3.80-5.20); RED CELL DISTRIBUTION WIDTH 22.7 % (11.5-14.5); WHITE BLOOD COUNT 5.6 K/uL (4.8-10.8)
[2018-02-20] MEDS: (Novolog) Insulin Aspart, Recombinant 100 u/ml 10 ml vial SC SCH ×4 (07:45→22:02)
[2018-02-20] MEDS: Tiotropium 18 mcg Cap For Inhalation INH SCH (09:15)
[2018-02-20] MEDS: Multiple Vitamins Tab PO SCH (09:49)
[2018-02-20] MEDS: Metoprolol Succinate 50 mg XL Tab PO SCH (09:49)
[2018-02-20] MEDS: Pantoprazole 40 mg EC Tab PO SCH (09:49)
[2018-02-20] MEDS: MethylPREDNISolone 40 mg Vial IVP SCH ×2 (09:49→21:00)
--- NOTE | 2018-02-20 19:01 | CON ---
Copied To: Brodie Krueger MD Attending MD: Brodie Krueger MD DATE: 02/20/2018 Platelet count is 27,000, is being tracking downward. If the patient has no petechia, we are going to transfuse one unit of platelets today. Her hemoglobin is about 7.98. We are also going to give her one unit of packed cells today while waiting for the of the chemotherapy. Brodie Krueger MD
--- NOTE | 2018-02-20 19:15 | CP.PCM.PN ---
Subjective - Date & Time of Evaluation Date of Evaluation: 02/20/18 Time of Evaluation: 07:00 - Subjective Subjective: clinically same Objective - Vital Signs/Intake and Output Vital Signs (last 24 hours): Temp Pulse Resp BP Pulse Ox 98.3 F 87 20 157/77 H 96 02/20/18 16:00 02/20/18 16:00 02/20/18 16:00 02/20/18 16:00 02/20/18 16:00 Intake and Output: 02/20/18 02/21/18 18:59 06:59 Intake Total 825 0 Output Total 500 Balance 325 0 - Medications Medications: Current Medications Acetaminophen (Tylenol 325mg Tab) 650 mg PO Q6 PRN PRN Reason: pain Last Admin: 02/18/18 21:16 Dose: 650 mg Albuterol/Ipratropium (Duoneb 3 Mg/0.5 Mg (3 Ml) Ud) 3 ml INH RQ6 [facility] Last Admin: 02/20/18 13:51 Dose: 3 ml Amlodipine Besylate (Norvasc) 10 mg PO DAILY [facility] Last Admin: 02/20/18 09:49 Dose: 10 mg Bisacodyl (Dulcolax) 10 mg [place] DAILY PRN PRN Reason: Constipation Last Admin: 02/16/18 19:08 Dose: 10 mg Furosemide (Lasix) 20 mg IVP ONCE PRN PRN Reason: Before 2nd Unit of PRBC Last Admin: 02/16/18 02:34 Dose: 20 mg Hydralazine HCl (Apresoline) 50 mg PO TID [facility] Last Admin: 02/20/18 17:48 Dose: 50 mg Hydralazine HCl (Apresoline) 10 mg IVP Q6H PRN PRN Reason: Other Insulin Aspart (Novolog) [address] [facility] PRN Reason: Protocol Last Admin: 02/20/18 17:30 Dose: 5 units Lisinopril (Zestril) 20 mg PO DAILY [facility] Last Admin: 02/20/18 09:49 Dose: 20 mg Methylprednisolone (Solu-Medrol) 20 mg IVP ONCE PRN PRN Reason: Give before 1st unit of PRBC Last Admin: 02/15/18 16:45 Dose: 20 mg Methylprednisolone (Solu-Medrol) 20 mg IVP ONCE PRN PRN Reason: give befor 2nd units of PRBC Last Admin: 02/16/18 02:35 Dose: 20 mg Methylprednisolone (Solu-Medrol) 20 mg IVP Q12H [facility] Last Admin: 02/20/18 09:49 Dose: 20 mg Metoprolol Succinate (Toprol Xl) 50 mg PO DAILY [facility] Last Admin: 02/20/18 09:49 Dose: 50 mg Multivitamins (Hexavitamin) 1 tab PO DAILY [facility] Last Admin: 02/20/18 09:49 Dose: 1 tab Pantoprazole Sodium (Protonix Ec Tab) 40 mg PO DAILY [facility] Last Admin: 02/20/18 09:49 Dose: 40 mg Simethicone (Mylicon Chew Tab) 80 mg PO Q8 PRN PRN Reason: GI distress Last Admin: 02/18/18 20:28 Dose: 80 mg Tiotropium [place] (Spiriva) 18 mcg INH RQ24 [facility] Last Admin: 02/20/18 09:15 Dose: 18 mcg - Labs Labs: 02/20/18 06:48 02/18/18 11:44 PT 15.9 SECONDS (9.7-12.2) H 01/28/18 10:14 INR 1.5 01/28/18 10:14 APTT 30 SECONDS (21-34) 01/28/18 10:14 - Constitutional Appears: Well - Head Exam Head Exam: ATRAUMATIC, NORMAL INSPECTION, NORMOCEPHALIC - Eye Exam Eye Exam: EOMI, Normal appearance, PERRL Pupil Exam: NORMAL ACCOMODATION, PERRL - ENT Exam ENT Exam: Mucous Membranes Moist, Normal Exam - Neck Exam Neck Exam: Full ROM, Normal Inspection. 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
[2018-02-21] MEDS: Albuterol-Ipratrop 3 mg / 0.5 (3 ml) UD INH SCH ×4 (01:32→19:36)
[2018-02-21] MEDS: (Novolog) Insulin Aspart, Recombinant 100 u/ml 10 ml vial SC SCH ×4 (07:55→21:14)
[2018-02-21] MEDS: Tiotropium 18 mcg Cap For Inhalation INH SCH (08:41)
[2018-02-21] MEDS: MethylPREDNISolone 40 mg Vial IVP SCH ×2 (08:55→20:49)
--- NOTE | 2018-02-21 10:22 | CP.PCM.PN ---
Subjective - Date & Time of Evaluation Date of Evaluation: 02/21/18 Time of Evaluation: 07:00 - Subjective Subjective: clinically same Objective - Vital Signs/Intake and Output Vital Signs (last 24 hours): Temp Pulse Resp BP Pulse Ox 98.2 F 82 20 159/76 H 95 02/21/18 08:43 02/21/18 08:43 02/21/18 08:43 02/21/18 08:43 02/21/18 08:43 Intake and Output: 02/21/18 02/21/18 06:59 18:59 Intake Total 1044 300 Balance 1044 300 - Medications Medications: Current Medications Acetaminophen (Tylenol 325mg Tab) 650 mg PO Q6 PRN PRN Reason: pain Last Admin: 02/21/18 08:55 Dose: 650 mg Albuterol/Ipratropium (Duoneb 3 Mg/0.5 Mg (3 Ml) Ud) 3 ml INH RQ6 [facility] Last Admin: 02/21/18 08:41 Dose: 3 ml Amlodipine Besylate (Norvasc) 10 mg PO DAILY [facility] Last Admin: 02/20/18 09:49 Dose: 10 mg Bisacodyl (Dulcolax) 10 mg [place] DAILY PRN PRN Reason: Constipation Last Admin: 02/16/18 19:08 Dose: 10 mg Furosemide (Lasix) 20 mg IVP ONCE PRN PRN Reason: Before 2nd Unit of PRBC Last Admin: 02/16/18 02:34 Dose: 20 mg Hydralazine HCl (Apresoline) 50 mg PO TID [facility] Last Admin: 02/20/18 17:48 Dose: 50 mg Hydralazine HCl (Apresoline) 10 mg IVP Q6H PRN PRN Reason: Other Insulin Aspart (Novolog) 0 unit SC [facility] PRN Reason: Protocol Last Admin: 02/21/18 07:55 Dose: 4 units Lisinopril (Zestril) 20 mg PO DAILY [facility] Last Admin: 02/20/18 09:49 Dose: 20 mg Methylprednisolone (Solu-Medrol) 20 mg IVP ONCE PRN PRN Reason: Give before 1st unit of PRBC Last Admin: 02/15/18 16:45 Dose: 20 mg Methylprednisolone (Solu-Medrol) 20 mg IVP ONCE PRN PRN Reason: give befor 2nd units of PRBC Last Admin: 02/16/18 02:35 Dose: 20 mg Methylprednisolone (Solu-Medrol) 20 mg IVP Q12H [facility] Last Admin: 02/21/18 08:55 Dose: 20 mg Metoprolol Succinate (Toprol Xl) 50 mg PO DAILY [facility] Last Admin: 02/20/18 09:49 Dose: 50 mg Multivitamins (Hexavitamin) 1 tab PO DAILY [facility] Last Admin: 02/20/18 09:49 Dose: 1 tab Pantoprazole Sodium (Protonix Ec Tab) 40 mg PO DAILY [facility] Last Admin: 02/20/18 09:49 Dose: 40 mg Simethicone (Mylicon Chew Tab) 80 mg PO Q8 PRN PRN Reason: GI distress Last Admin: 02/18/18 20:28 Dose: 80 mg Tiotropium [place] (Spiriva) 18 mcg INH RQ24 [facility] Last Admin: 02/21/18 08:41 Dose: 18 mcg - Labs Labs: 02/20/18 06:48 02/18/18 11:44 PT 15.9 SECONDS (9.7-12.2) H 01/28/18 10:14 INR 1.5 01/28/18 10:14 APTT 30 SECONDS (21-34) 01/28/18 10:14 - Constitutional Appears: Well - Head Exam Head Exam: ATRAUMATIC, NORMAL INSPECTION, NORMOCEPHALIC - Eye Exam Eye Exam: EOMI, Normal appearance, PERRL Pupil Exam: NORMAL ACCOMODATION, PERRL - ENT Exam ENT Exam: Mucous Membranes Moist, Normal Exam - Neck Exam Neck Exam: Full ROM, Normal Inspection. 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
[2018-02-21] MEDS: Multiple Vitamins Tab PO SCH (10:47)
[2018-02-21] MEDS: Pantoprazole 40 mg EC Tab PO SCH (10:47)
[2018-02-21] MEDS: Metoprolol Succinate 50 mg XL Tab PO SCH (10:47)
[2018-02-21] MEDS: guaiFENesin 600 mg ER Tab PO SCH (17:22)
[2018-02-22] MEDS: Albuterol-Ipratrop 3 mg / 0.5 (3 ml) UD INH SCH ×4 (02:07→19:00)
[2018-02-22] MEDS: (Novolog) Insulin Aspart, Recombinant 100 u/ml 10 ml vial SC SCH ×4 (07:47→21:47)
[2018-02-22] MEDS: Tiotropium 18 mcg Cap For Inhalation INH SCH (08:41)
[2018-02-22] MEDS: MethylPREDNISolone 40 mg Vial IVP SCH ×2 (08:42→21:08)
[2018-02-22] MEDS: Pantoprazole 40 mg EC Tab PO SCH (10:38)
[2018-02-22] MEDS: guaiFENesin 600 mg ER Tab PO SCH ×2 (10:38→17:37)
[2018-02-22] MEDS: Metoprolol Succinate 50 mg XL Tab PO SCH (10:38)
[2018-02-22] MEDS: Multiple Vitamins Tab PO SCH (10:38)
--- NOTE | 2018-02-22 12:43 | CP.PCM.PN ---
Subjective - Date & Time of Evaluation Date of Evaluation: 02/22/18 Time of Evaluation: 07:00 - Subjective Subjective: clinically same Objective - Vital Signs/Intake and Output Vital Signs (last 24 hours): Temp Pulse Resp BP Pulse Ox 98.7 F 86 20 163/87 H 96 02/22/18 08:00 02/22/18 08:00 02/22/18 08:00 02/22/18 08:00 02/22/18 08:00 - Medications Medications: Current Medications Acetaminophen (Tylenol 325mg Tab) 650 mg PO Q6 PRN PRN Reason: pain Last Admin: 02/22/18 06:54 Dose: 650 mg Albuterol/Ipratropium (Duoneb 3 Mg/0.5 Mg (3 Ml) Ud) 3 ml INH RQ6 [facility] Last Admin: 02/22/18 08:41 Dose: 3 ml Amlodipine Besylate (Norvasc) 10 mg PO DAILY [facility] Last Admin: 02/22/18 10:38 Dose: 10 mg Bisacodyl (Dulcolax) 10 mg [place] DAILY PRN PRN Reason: Constipation Last Admin: 02/16/18 19:08 Dose: 10 mg Furosemide (Lasix) 20 mg IVP ONCE PRN PRN Reason: Before 2nd Unit of PRBC Last Admin: 02/16/18 02:34 Dose: 20 mg Guaifenesin (Mucinex [place]) 600 mg PO BID [facility] Last Admin: 02/22/18 10:38 Dose: 600 mg Hydralazine HCl (Apresoline) 50 mg PO TID [facility] Last Admin: 02/22/18 10:38 Dose: 50 mg Hydralazine HCl (Apresoline) 10 mg IVP Q6H PRN PRN Reason: Other Insulin Aspart (Novolog) 0 unit [place] [facility] PRN Reason: Protocol Last Admin: 02/22/18 11:56 Dose: 6 units Lisinopril (Zestril) 20 mg PO DAILY [facility] Last Admin: 02/22/18 10:38 Dose: 20 mg Methylprednisolone (Solu-Medrol) 20 mg IVP ONCE PRN PRN Reason: Give before 1st unit of PRBC Last Admin: 02/15/18 16:45 Dose: 20 mg Methylprednisolone (Solu-Medrol) 20 mg IVP ONCE PRN PRN Reason: give befor 2nd units of PRBC Last Admin: 02/16/18 02:35 Dose: 20 mg Methylprednisolone (Solu-Medrol) 20 mg IVP Q12H [facility] [place] Last Admin: 02/22/18 08:42 Dose: 20 mg Metoprolol Succinate (Toprol Xl) 50 mg PO DAILY [facility] [place] Last Admin: 02/22/18 10:38 Dose: 50 mg Multivitamins (Hexavitamin) 1 tab PO DAILY [facility] Last Admin: 02/22/18 10:38 Dose: 1 tab Pantoprazole Sodium (Protonix Ec Tab) 40 mg PO DAILY [facility] Last Admin: 02/22/18 10:38 Dose: 40 mg Simethicone (Mylicon Chew Tab) 80 mg PO Q8 PRN PRN Reason: GI distress Last Admin: 02/18/18 20:28 Dose: 80 mg Tiotropium [place] (Spiriva) 18 mcg INH RQ24 [facility] [place] Last Admin: 02/22/18 08:41 Dose: 18 mcg - Labs Labs: 02/20/18 06:48 02/18/18 11:44 PT 15.9 SECONDS (9.7-12.2) H 01/28/18 10:14 INR 1.5 01/28/18 10:14 APTT 30 SECONDS (21-34) 01/28/18 10:14 - Constitutional Appears: Well - Head Exam Head Exam: ATRAUMATIC, NORMAL INSPECTION, NORMOCEPHALIC - Eye Exam Eye Exam: EOMI, Normal appearance, PERRL Pupil Exam: NORMAL ACCOMODATION, PERRL - ENT Exam ENT Exam: Mucous Membranes Moist, Normal Exam - Neck Exam Neck Exam: Full ROM, Normal Inspection. 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
[2018-02-23] MEDS: Albuterol-Ipratrop 3 mg / 0.5 (3 ml) UD INH SCH ×4 (01:27→19:32)
[2018-02-23 06:40] LABS: ALB/GLOB RATIO 0.9 (1.0-2.1); ALBUMIN 2.2 g/dL (3.5-5.0); ALT/SGPT 126 U/L (9-52); AST/SGOT 21 U/L (14-36); BLOOD UREA NITROGEN 25 mg/dL (7-17); CALCIUM 8.7 mg/dl (8.6-10.4); GFR NON-AFRICAN AMERICAN > 60
[2018-02-23 06:54] LABS: HEMOGLOBIN 8.1 g/dL (11.0-16.0); MEAN CELL VOLUME 80.5 fL (81.0-99.0); MEAN CORPUSCULAR HEMOGLOBIN 26.5 pg (27.0-31.0); MEAN CORPUSCULAR HGB CONC 32.9 g/dL (33.0-37.0); MEAN PLATELET VOLUME 11.3 fL (7.2-11.7); RBC 3.04 Mil/uL (3.80-5.20); RED CELL DISTRIBUTION WIDTH 20.8 % (11.5-14.5)
[2018-02-23 07:04] LABS: WHITE BLOOD COUNT 0.2 K/uL (4.8-10.8)
[2018-02-23] MEDS: Tiotropium 18 mcg Cap For Inhalation INH SCH (07:41)
[2018-02-23] MEDS: (Novolog) Insulin Aspart, Recombinant 100 u/ml 10 ml vial SC SCH ×4 (08:22→22:45)
--- NOTE | 2018-02-23 10:08 | RAD ---
Date of service: 02/23/2018 HISTORY: Chest congestion COMPARISON: Comparison chest 02/10/2018 FINDINGS: No change right IJ MediPort with tip in the SVC LUNGS: Interval development of patchy bilateral infiltrates PLEURA: No significant pleural effusion identified, no pneumothorax apparent. CARDIOVASCULAR: Normal. OSSEOUS STRUCTURES: No significant abnormalities. VISUALIZED UPPER ABDOMEN: Normal. OTHER FINDINGS: None. IMPRESSION: Interval development of patchy bilateral infiltrates.
[2018-02-23] MEDS: Multiple Vitamins Tab PO SCH (10:37)
[2018-02-23] MEDS: Metoprolol Succinate 50 mg XL Tab PO SCH (10:38)
[2018-02-23] MEDS: guaiFENesin 600 mg ER Tab PO SCH ×2 (10:38→17:45)
[2018-02-23] MEDS: MethylPREDNISolone 40 mg Vial IVP SCH ×2 (10:38→20:51)
[2018-02-23] MEDS: Pantoprazole 40 mg EC Tab PO SCH (10:38)
--- NOTE | 2018-02-23 15:34 | CP.PCM.PN ---
Subjective - Date & Time of Evaluation Date of Evaluation: 02/23/18 Time of Evaluation: 07:00 - Subjective Subjective: clinically same Objective - Vital Signs/Intake and Output Vital Signs (last 24 hours): Temp Pulse Resp BP Pulse Ox 98.2 F 81 20 158/68 H 97 02/23/18 08:04 02/23/18 08:04 02/23/18 08:04 02/23/18 08:04 02/23/18 08:04 Intake and Output: 02/23/18 02/23/18 06:59 18:59 Intake Total 120 Balance 120 - Medications Medications: Current Medications Acetaminophen (Tylenol 325mg Tab) 650 mg PO Q6 PRN PRN Reason: pain Last Admin: 02/23/18 00:03 Dose: 650 mg Albuterol/Ipratropium (Duoneb 3 Mg/0.5 Mg (3 Ml) Ud) 3 ml INH RQ6 [facility] Last Admin: 02/23/18 13:28 Dose: 3 ml Amlodipine Besylate (Norvasc) 10 mg PO DAILY [facility] Last Admin: 02/23/18 10:38 Dose: 10 mg Bisacodyl (Dulcolax) 10 mg [place] DAILY PRN PRN Reason: Constipation Last Admin: 02/16/18 19:08 Dose: 10 mg Furosemide (Lasix) 20 mg IVP ONCE PRN PRN Reason: Before 2nd Unit of PRBC Last Admin: 02/16/18 02:34 Dose: 20 mg Guaifenesin (Mucinex [place]) 600 mg PO BID [facility] Last Admin: 02/23/18 10:38 Dose: 600 mg Hydralazine HCl (Apresoline) 50 mg PO TID [facility] Last Admin: 02/23/18 14:14 Dose: 50 mg Hydralazine HCl (Apresoline) 10 mg IVP Q6H PRN PRN Reason: Other Insulin Aspart (Novolog) 0 unit [place] [facility]S [facility] PRN Reason: Protocol Last Admin: 02/23/18 12:31 Dose: 4 units Lisinopril (Zestril) 20 mg PO DAILY [facility] Last Admin: 02/23/18 10:38 Dose: 20 mg Methylprednisolone (Solu-Medrol) 20 mg IVP ONCE PRN PRN Reason: Give before 1st unit of PRBC Last Admin: 02/15/18 16:45 Dose: 20 mg Methylprednisolone (Solu-Medrol) 20 mg IVP ONCE PRN PRN Reason: give befor 2nd units of PRBC Last Admin: 02/16/18 02:35 Dose: 20 mg Methylprednisolone (Solu-Medrol) 20 mg IVP Q12H [facility] Last Admin: 02/23/18 10:38 Dose: 20 mg Metoprolol Succinate (Toprol Xl) 50 mg PO DAILY [facility] Last Admin: 02/23/18 10:38 Dose: 50 mg Multivitamins (Hexavitamin) 1 tab PO DAILY [facility] Last Admin: 02/23/18 10:37 Dose: 1 tab Pantoprazole Sodium (Protonix Ec Tab) 40 mg PO DAILY [facility] Last Admin: 02/23/18 10:38 Dose: 40 mg Simethicone (Mylicon Chew Tab) 80 mg PO Q8 PRN PRN Reason: GI distress Last Admin: 02/18/18 20:28 Dose: 80 mg Tiotropium [place] (Spiriva) 18 mcg INH RQ24 [facility] Last Admin: 02/23/18 07:41 Dose: 18 mcg - Labs Labs: 02/23/18 06:16 02/23/18 06:17 PT 15.9 SECONDS (9.7-12.2) H 01/28/18 10:14 INR 1.5 01/28/18 10:14 APTT 30 SECONDS (21-34) 01/28/18 10:14 - Constitutional Appears: Well - Head Exam Head Exam: ATRAUMATIC, NORMAL INSPECTION, NORMOCEPHALIC - Eye Exam Eye Exam: EOMI, Normal appearance, PERRL Pupil Exam: NORMAL ACCOMODATION, PERRL - ENT Exam ENT Exam: Mucous Membranes Moist, Normal Exam - Neck Exam Neck Exam: Full ROM, Normal Inspection. 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
--- NOTE | 2018-02-23 21:39 | CP.PCM.PN ---
Subjective - Date & Time of Evaluation Date of Evaluation: 02/23/18 Time of Evaluation: 21:36 - Subjective Subjective: Patient c/o cough, sputum production and hypoxic 4 days after chemo, now neutropenic fevers, ICU eval requested by primary team Objective - Vital Signs/Intake and Output Vital Signs (last 24 hours): Temp Pulse Resp BP Pulse Ox 98.8 F 101 H 20 158/68 H 96 02/23/18 18:40 02/23/18 16:00 02/23/18 16:00 02/23/18 08:04 02/23/18 16:00 Intake and Output: 02/23/18 02/24/18 18:59 06:59 Intake Total 120 Balance 120 - Medications Medications: Current Medications Acetaminophen (Tylenol 325mg Tab) 650 mg PO Q6 PRN PRN Reason: pain Last Admin: 02/23/18 00:03 Dose: 650 mg Acetaminophen (Tylenol 650 Mg Supp) 650 mg MD Q6 PRN PRN Reason: Fever >100.4 F Last Admin: 02/23/18 16:27 Dose: 650 mg Albuterol/Ipratropium (Duoneb 3 Mg/0.5 Mg (3 Ml) Ud) 3 ml INH RQ6 [facility]ILLIE Last Admin: 02/23/18 19:32 Dose: Not Given Amlodipine Besylate (Norvasc) 10 mg PO DAILY [facility] Last Admin: 02/23/18 10:38 Dose: 10 mg Furosemide (Lasix) 20 mg IVP ONCE PRN PRN Reason: Before 2nd Unit of PRBC Last Admin: 02/16/18 02:34 Dose: 20 mg Guaifenesin (Mucinex La) 600 mg PO BID [facility] Last Admin: 02/23/18 17:45 Dose: 600 mg Hydralazine HCl (Apresoline) 50 mg PO TID [facility] Last Admin: 02/23/18 17:45 Dose: 50 mg Hydralazine HCl (Apresoline) 10 mg IVP Q6H PRN PRN Reason: Other Cefepime HCl 1 gm/ Dextrose 50 mls @ 100 mls/hr IVPB Q12H MILLIE PRN Reason: Protocol Insulin Aspart (Novolog) 0 unit SC ACHS MILLIE PRN Reason: Protocol Last Admin: 02/23/18 17:45 Dose: 4 units Methylprednisolone (Solu-Medrol) 20 mg IVP ONCE PRN PRN Reason: Give before 1st unit of PRBC Last Admin: 02/15/18 16:45 Dose: 20 mg Methylprednisolone (Solu-Medrol) 20 mg IVP ONCE PRN PRN Reason: give befor 2nd units of PRBC Last Admin: 02/16/18 02:35 Dose: 20 mg Methylprednisolone (Solu-Medrol) 20 mg IVP Q12H [facility] Last Admin: 02/23/18 20:51 Dose: 20 mg Metoprolol Succinate (Toprol Xl) 50 mg PO DAILY [facility] Last Admin: 02/23/18 10:38 Dose: 50 mg Multivitamins (Hexavitamin) 1 tab PO DAILY [facility] Last Admin: 02/23/18 10:37 Dose: 1 tab Pantoprazole Sodium (Protonix Ec Tab) 40 mg PO DAILY [facility] Last Admin: 02/23/18 10:38 Dose: 40 mg Simethicone (Mylicon Chew Tab) 80 mg PO Q8 PRN PRN Reason: GI distress Last Admin: 02/18/18 20:28 Dose: 80 mg Tiotropium Martin (Spiriva) 18 mcg INH RQ24 [facility] Last Admin: 02/23/18 07:41 Dose: 18 mcg - Labs Labs: 02/23/18 06:16 02/23/18 06:17 PT 15.9 SECONDS (9.7-12.2) H 01/28/18 10:14 INR 1.5 01/28/18 10:14 APTT 30 SECONDS (21-34) 01/28/18 10:14 - Constitutional Appears: Toxic, Older Than Stated Age - Head Exam Head Exam: ATRAUMATIC, NORMAL INSPECTION, NORMOCEPHALIC - Eye Exam Pupil Exam: NORMAL ACCOMODATION - ENT Exam ENT Exam: Mucous Membranes Moist - Cardiovascular Exam Cardiovascular Exam: REGULAR RHYTHM, +S1, +S2 - GI/Abdominal Exam GI & Abdominal Exam: Normal Bowel Sounds - Extremities Exam Extremities Exam: Normal Inspection - Neurological Exam Neurological Exam: Alert, Awake, CN II-XII Intact - Skin Skin Exam: Normal Color Assessment and Plan - Assessment and Plan (Free Text) Assessment: Neutropenic fevers: will benefit from frye culture, blood, urine and sputum, start cefepime + vanco, check mRSA screen -neupogen IV -serial lactic -CT chest -check QTC -COPD: continue bronchodilators -THrombocytopenia: monitor transfuse to keep plt >10 -Anemia: suspect anemia of chronic disease, serial cbc, trsnfuse to keep hemodynamic stability -DVT ppx SCDS -DM: ISS lispro -neutropenic precautions prognosis poor as patient is 72 y/o with underlying cancer and first episode of neutropenic fevers at risk of shock -Will benefit from ICU level care until neutropenia resolves. d/w ICU team and primary team
[2018-02-24] MEDS: Albuterol-Ipratrop 3 mg / 0.5 (3 ml) UD INH SCH ×6 (01:10→19:34)
[2018-02-24 06:12] LABS: HEMOGLOBIN 8.1 g/dL (11.0-16.0); MEAN CELL VOLUME 79.6 fL (81.0-99.0); MEAN CORPUSCULAR HEMOGLOBIN 26.7 pg (27.0-31.0); MEAN CORPUSCULAR HGB CONC 33.6 g/dL (33.0-37.0); MEAN PLATELET VOLUME 12.3 fL (7.2-11.7); RBC 3.04 Mil/uL (3.80-5.20)
[2018-02-24 06:39] LABS: ALB/GLOB RATIO 0.9 (1.0-2.1); ALBUMIN 2.1 g/dL (3.5-5.0)
[2018-02-24 06:42] LABS: WHITE BLOOD COUNT 0.1 K/uL (4.8-10.8)
[2018-02-24 06:57] LABS: ALT/SGPT 111 U/L (9-52); AST/SGOT 19 U/L (14-36); BLOOD UREA NITROGEN 28 mg/dL (7-17); CALCIUM 8.8 mg/dl (8.6-10.4); GFR NON-AFRICAN AMERICAN > 60
[2018-02-24] MEDS: (Novolog) Insulin Aspart, Recombinant 100 u/ml 10 ml vial SC SCH ×3 (07:59→17:05)
[2018-02-24 08:51] LABS: EOS % 1.7 % (0.0-4.0); LYMPH % 36.8 % (20.0-40.0); MONO % 17.1 % (0.0-10.0); NEUT % 44.4 % (50.0-75.0)
[2018-02-24 08:52] LABS: NEUT # 0.1 K/uL (1.8-7.0); NRBC % 0.5 % (0.0-2.0)
--- NOTE | 2018-02-24 09:06 | RAD ---
Date of service: 02/24/2018 HISTORY: f-up infiltrates COMPARISON: 02/23/2018 FINDINGS: LUNGS: The bilateral patchy airspace opacities appear more confluent above the right minor fissure. Otherwise no change perceived in the bilateral infiltrates PLEURA: No gross pleural effusion identified, no pneumothorax apparent. CARDIOVASCULAR: Cardiomegaly. -similar. Port-A-Cath internal jugular vein insertion with tip superior vena cava - similar. OSSEOUS STRUCTURES: No significant abnormalities. VISUALIZED UPPER ABDOMEN: Faceted gallstones right upper quadrant-similar OTHER FINDINGS: None. IMPRESSION: Radiographically worsening coalescing airspace infiltrates right upper lobe and blending with the right hilum. The left-sided patchy infiltrates are similar. Other findings as above.
[2018-02-24] MEDS: MethylPREDNISolone 40 mg Vial IVP SCH ×2 (09:45→20:58)
[2018-02-24] MEDS: Vancomycin 1 gm/NS 200 ml 1 GM/200 ML BAG IVPB SCH ×2 (10:15→21:01)
[2018-02-24] MEDS ORDERED: guaiFENesin 200 mg/10 ml Syrup UD PO PRN (10:24)
--- NOTE | 2018-02-24 10:31 | CP.CCUPN ---
<Nickolas Tyler - Last Filed: 02/24/18 16:09> CCU Subjective - Physician Review Subjective (Free Text): 02/24/18 12:27 Patient seen and examined at bedside. Patient is noted to have cough with chest congestion. Patient appears weak and provide no further history. Patient is awake and alert. CCU Objective - Vital Signs / Intake & Output Vital Signs (Last 4 hours): Vital Signs Temp Pulse Resp BP Pulse Ox 02/24/18 10:00 103 H 10 L 131/66 90 L 02/24/18 09:29 131/66 02/24/18 09:00 101 H 25 H 91 L 02/24/18 08:30 129/58 L 02/24/18 08:00 99.0 F 106 H 20 94 L 02/24/18 07:46 23 02/24/18 07:29 100 H 25 H 126/74 96 02/24/18 07:00 99 H 23 90 L Intake and Output (Last 8hrs): Intake & Output 02/23/18 02/24/18 02/24/18 22:59 06:59 14:59 Intake Total 0 0 Balance 0 0 Weight 130 lb 1.6 oz Intake: Oral 0 0 Other: # Bowel Movements 1 1 - Physical Exam Head: Positive for: Atraumatic, Normocephalic Pupils: Positive for: PERRL Extroacular Muscles: Positive for: EOMI Mouth: Positive for: Moist Mucous Membranes Respiratory/Chest: Positive for: Decreased Breath Sounds, Rhonchi, Other (Noted to have wet cough ) Cardiovascular: Positive for: Normal S1, S2, Tachycardic, Other (portacath R chest) Abdomen: Positive for: Normal Bowel Sounds. Negative for: Tenderness, Distention, Peritoneal Signs Upper Extremity: Positive for: NORMAL PULSES (radial pulses ) Lower Extremity: Positive for: Other (scds in place). Negative for: Edema Skin: Positive for: Warm, Dry Psychiatric: Positive for: Alert - Medications Active Medications: Active Medications Generic Name Dose Route Start Last Admin Trade Name Freq PRN Reason Stop Dose Admin Acetaminophen 650 mg 02/14/18 20:48 02/23/18 00:03 Tylenol 325mg Tab PO 650 mg Q6 PRN Administration pain Albuterol/Ipratropium 3 ml 02/20/18 02:00 02/24/18 07:49 Duoneb 3 Mg/0.5 Mg (3 Ml) Ud INH 3 ml RQ6 MILLIE Administration Albuterol/Ipratropium 3 ml 02/24/18 08:00 Duoneb 3 Mg/0.5 Mg (3 Ml) Ud INH RQ6 MILLIE Amlodipine Besylate 10 mg 02/06/18 09:11 02/24/18 09:44 Norvasc PO 10 mg DAILY MILLIE Administration Guaifenesin 200 mg 02/24/18 10:24 Robitussin PO Q4H PRN Cough and congestion Hydralazine HCl 50 mg 02/06/18 10:00 02/24/18 09:44 Apresoline PO 50 mg TID MILLIE Administration Hydralazine HCl 10 mg 02/11/18 00:00 Apresoline IVP Q6H PRN Other Cefepime HCl 1 gm/ Dextrose 50 mls @ 100 mls/hr 02/23/18 21:30 02/24/18 10:13 IVPB 100 mls/hr Q12H MILLIE Administration Protocol Vancomycin/Sodium Chloride 1 gm in 200 mls @ 166.7 mls/hr 02/24/18 10:00 10/08 10:15 Vancomycin 1 Gm/Ns 200 Ml IVPB 03/01/18 10:01 166.7 mls/hr Q12H MILLIE Administration Protocol Insulin Aspart 0 unit 01/29/18 07:30 02/24/18 07:59 Novolog SC 4 units ACHS MILLIE Administration Protocol Methylprednisolone 20 mg 02/15/18 13:20 02/15/18 16:45 Solu-Medrol IVP 20 mg ONCE PRN Administration Give before 1st unit of PRBC Methylprednisolone 20 mg 02/15/18 13:38 02/16/18 02:35 Solu-Medrol IVP 20 mg ONCE PRN Administration give befor 2nd units of PRBC Methylprednisolone 20 mg 02/16/18 09:10 02/24/18 09:45 Solu-Medrol IVP 20 mg Q12H MILLIE Administration Metoprolol Tartrate 25 mg 02/24/18 10:30 Lopressor PO BID [facility] Multivitamins/Vitamin C 5 ml 02/24/18 10:15 Multi-Delyn Liquid PO DAILY MILLIE Pantoprazole Sodium 40 mg 02/24/18 10:15 Protonix Inj IVP DAILY MILLIE Simethicone 80 mg 02/17/18 20:31 02/18/18 20:28 Mylicon Chew Tab PO 80 mg Q8 PRN Administration GI distress Tiotropium [place] 18 mcg 01/30/18 08:00 02/23/18 07:41 Spiriva INH 18 mcg RQ24 MILLIE Administration - Patient Studies Lab Studies: Microbiology Studies 02/23/18 21:15 Blood Culture - Preliminary Blood-Venous Gram Positive Cocci Gram Stain - Final 02/23/18 21:45 Blood Culture - Preliminary Blood-Venous Gram Positive Cocci Gram Stain - Final Lab Studies 02/24/18 02/24/18 02/24/18 Range/Units 07:22 05:59 05:59 WBC 0.1 L* (4.8-10.8) K/uL RBC 3.04 L (3.80-5.20) Mil/uL Hgb 8.1 L (11.0-16.0) g/dL Hct 24.2 L (34.0-47.0) % MCV 79.6 L (81.0-99.0) fL MCH 26.7 L (27.0-31.0) pg MCHC 33.6 (33.0-37.0) g/dL RDW 21.0 H (11.5-14.5) % Plt Count 13 L* (130-400) K/uL MPV 12.3 H (7.2-11.7) fL Neut % (Auto) 44.4 L (50.0-75.0) % Lymph % (Auto) 36.8 (20.0-40.0) % Gem % (Auto) 17.1 H (0.0-10.0) % Eos % (Auto) 1.7 (0.0-4.0) % Baso % (Auto) 0.0 (0.0-2.0) % Neut # (Auto) 0.1 L (1.8-7.0) K/uL Lymph # (Auto) 0.0 L (1.0-4.3) K/uL Gem # (Auto) 0.0 (0.0-0.8) K/uL Eos # (Auto) 0.0 (0.0-0.7) K/uL Baso # (Auto) 0.0 (0.0-0.2) K/uL Smear Path Review Sodium (132-148) mmol/L Potassium (3.6-5.2) mmol/L Chloride (98-107) mmol/L Carbon Dioxide (22-30) mmol/L Anion Gap (10-20) BUN (7-17) mg/dL Creatinine (0.7-1.2) mg/dL Est GFR ( Amer) Est GFR (Non-Af Amer) POC Glucose (mg/dL) 341 H (65-110) mg/dL Random Glucose (65-105) mg/dL Lactic Acid 1.6 (0.7-2.1) mmol/L Calcium (8.6-10.4) mg/dl Phosphorus (2.5-4.5) mg/dL Magnesium (1.6-2.3) mg/dL Total Bilirubin (0.2-1.3) mg/dL AST (14-36) U/L ALT (9-52) U/L Alkaline Phosphatase (38-126) U/L Total Protein (6.3-8.3) g/dL Albumin (3.5-5.0) g/dL Globulin (2.2-3.9) gm/dL Albumin/Globulin Ratio (1.0-2.1) 02/24/18 02/23/18 02/23/18 Range/Units 05:59 21:56 21:33 WBC (4.8-10.8) K/uL RBC (3.80-5.20) Mil/uL Hgb (11.0-16.0) g/dL Hct (34.0-47.0) % MCV (81.0-99.0) fL MCH (27.0-31.0) pg MCHC (33.0-37.0) g/dL RDW (11.5-14.5) % Plt Count (130-400) K/uL MPV (7.2-11.7) fL Neut % (Auto) (50.0-75.0) % Lymph % (Auto) (20.0-40.0) % Gem % (Auto) (0.0-10.0) % Eos % (Auto) (0.0-4.0) % Baso % (Auto) (0.0-2.0) % Neut # (Auto) (1.8-7.0) K/uL Lymph # (Auto) (1.0-4.3) K/uL Gem # (Auto) (0.0-0.8) K/uL Eos # (Auto) (0.0-0.7) K/uL Baso # (Auto) (0.0-0.2) K/uL Smear Path Review Sodium 143 (132-148) mmol/L Potassium 3.6 (3.6-5.2) mmol/L Chloride 103 (98-107) mmol/L Carbon Dioxide 34 H (22-30) mmol/L Anion Gap 10 (10-20) BUN 28 H (7-17) mg/dL Creatinine 0.4 L (0.7-1.2) mg/dL Est GFR ( Amer) > 60 Est GFR (Non-Af Amer) > 60 POC Glucose (mg/dL) 284 H (65-110) mg/dL Random Glucose 332 H (65-105) mg/dL Lactic Acid 1.8 (0.7-2.1) mmol/L Calcium 8.8 (8.6-10.4) mg/dl Phosphorus 2.6 (2.5-4.5) mg/dL Magnesium 1.9 (1.6-2.3) mg/dL Total Bilirubin 1.4 H (0.2-1.3) mg/dL AST 19 (14-36) U/L ALT 111 H (9-52) U/L Alkaline Phosphatase 213 H (38-126) U/L Total Protein 4.4 L (6.3-8.3) g/dL Albumin 2.1 L (3.5-5.0) g/dL Globulin 2.3 (2.2-3.9) gm/dL Albumin/Globulin Ratio 0.9 L (1.0-2.1) 02/23/18 02/23/18 02/23/18 Range/Units 16:24 11:45 06:16 WBC (4.8-10.8) K/uL RBC (3.80-5.20) Mil/uL Hgb (11.0-16.0) g/dL Hct (34.0-47.0) % MCV (81.0-99.0) fL MCH (27.0-31.0) pg MCHC (33.0-37.0) g/dL RDW (11.5-14.5) % Plt Count (130-400) K/uL MPV (7.2-11.7) fL Neut % (Auto) (50.0-75.0) % Lymph % (Auto) (20.0-40.0) % Gem % (Auto) (0.0-10.0) % Eos % (Auto) (0.0-4.0) % Baso % (Auto) (0.0-2.0) % Neut # (Auto) (1.8-7.0) K/uL Lymph # (Auto) (1.0-4.3) K/uL Gem # (Auto) (0.0-0.8) K/uL Eos # (Auto) (0.0-0.7) K/uL Baso # (Auto) (0.0-0.2) K/uL Smear Path Review Sodium (132-148) mmol/L Potassium (3.6-5.2) mmol/L Chloride (98-107) mmol/L Carbon Dioxide (22-30) mmol/L Anion Gap (10-20) BUN (7-17) mg/dL Creatinine (0.7-1.2) mg/dL Est GFR ( Amer) Est GFR (Non-Af Amer) POC Glucose (mg/dL) 308 H 305 H (65-110) mg/dL Random Glucose (65-105) mg/dL Lactic Acid (0.7-2.1) mmol/L Calcium (8.6-10.4) mg/dl Phosphorus (2.5-4.5) mg/dL Magnesium (1.6-2.3) mg/dL Total Bilirubin (0.2-1.3) mg/dL AST (14-36) U/L ALT (9-52) U/L Alkaline Phosphatase (38-126) U/L Total Protein (6.3-8.3) g/dL Albumin (3.5-5.0) g/dL Globulin (2.2-3.9) gm/dL Albumin/Globulin Ratio (1.0-2.1) Laboratory Results - last 24 hr 02/23/18 02/23/18 02/23/18 06:16 11:45 16:24 WBC RBC Hgb Hct MCV MCH MCHC RDW Plt Count MPV Neut % (Auto) Lymph % (Auto) Gem % (Auto) Eos % (Auto) Baso % (Auto) Neut # (Auto) Lymph # (Auto) Gem # (Auto) Eos # (Auto) Baso # (Auto) Smear Path Review Sodium Potassium Chloride Carbon Dioxide Anion Gap BUN Creatinine Est GFR ( Amer) Est GFR (Non-Af Amer) POC Glucose (mg/dL) 305 H 308 H Random Glucose Lactic Acid Calcium Phosphorus Magnesium Total Bilirubin AST ALT Alkaline Phosphatase Total Protein Albumin Globulin Albumin/Globulin Ratio 02/23/18 02/23/18 02/24/18 21:33 21:56 05:59 WBC RBC Hgb Hct MCV MCH MCHC RDW Plt Count MPV Neut % (Auto) Lymph % (Auto) Gem % (Auto) Eos % (Auto) Baso % (Auto) Neut # (Auto) Lymph # (Auto) Gem # (Auto) Eos # (Auto) Baso # (Auto) Smear Path Review Sodium 143 Potassium 3.6 Chloride 103 Carbon Dioxide 34 H Anion Gap 10 BUN 28 H Creatinine 0.4 L Est GFR ( Amer) > 60 Est GFR (Non-Af Amer) > 60 POC Glucose (mg/dL) 284 H Random Glucose 332 H Lactic Acid 1.8 Calcium 8.8 Phosphorus 2.6 Magnesium 1.9 Total Bilirubin 1.4 H AST 19 ALT 111 H Alkaline Phosphatase 213 H Total Protein 4.4 L Albumin 2.1 L Globulin 2.3 Albumin/Globulin Ratio 0.9 L 02/24/18 02/24/18 02/24/18 05:59 05:59 07:22 WBC 0.1 L* RBC 3.04 L Hgb 8.1 L Hct 24.2 L MCV 79.6 L MCH 26.7 L MCHC 33.6 RDW 21.0 H Plt Count 13 L* MPV 12.3 H Neut % (Auto) 44.4 L Lymph % (Auto) 36.8 Gem % (Auto) 17.1 H Eos % (Auto) 1.7 Baso % (Auto) 0.0 Neut # (Auto) 0.1 L Lymph # (Auto) 0.0 L Gem # (Auto) 0.0 Eos # (Auto) 0.0 Baso # (Auto) 0.0 Smear Path Review Sodium Potassium Chloride Carbon Dioxide Anion Gap BUN Creatinine Est GFR ( Amer) Est GFR (Non-Af Amer) POC Glucose (mg/dL) 341 H Random Glucose Lactic Acid 1.6 Calcium Phosphorus Magnesium Total Bilirubin AST ALT Alkaline Phosphatase Total Protein Albumin Globulin Albumin/Globulin Ratio Fingerstick Blood Sugar Results: 341 Review of Systems - Review of Systems Systems not reviewed;Unavailable: Other (unable to obtain history) Critical Care Progress Note - Nutrition Nutrition: Nutrition Category Date Time Status Diabetic [Consistent Carbohydrate] [DIET] Diets 02/07/18 Lunch Active Assessment/Plan - Assessment and Plan (Free Text) Assessment: 72 year old female with history of left breast cancer s/p mastectomy, cervical cancer s/p hysterectomy, newly diagnosed lymphoma, COPD, HTN, DM, anemia sp transfusion. ICU consulted for neutropenic fevers after chemo. Plan: Neuro: Awake and alert Able to follow commands Cardiovascular: BP 121/54 HR 111 Hx of HTN Norvasc 10mg PO Hydralazine 50mg TID Hydralazine 10mg IVP Q6 Lopessor 25mg PO BID Cardiology Dr. Damon on board Pulmonary Right upper lobe infiltrate 02/24/18 CXR Radiographically worsening coalescing airspace infiltrates right upper lobe and blending with the right hilum. The left-sided patchy infiltrates are similar Hx of COPD CT chest Interval worsening bilateral pneumonia affecting primarily the bilateral lower lobes greater than the bilateral upper lobes and minimally involving the middle lobe. Prior right pleural effusion diminished in the interval. Cholelithiasis. Bilateral adrenal hypertrophy without gross mass evident. Mild splenomegaly to 13.6 cm. Small hiatal hernia identified Duonebs Q6 Robitussin 200mg Q4 PRN Spiriva 18mcg Q24 Legionella negative mycoplasma negative GI Protonix 40mg IV Renal BUN 28 Cr 0.4 I & Os +120cc Heme/Onc Hx of left breast cancer s/p mastectomy Hx of cervical cancer s/p hysterectomy Newly diagnosed lymphoma Anemic H/H 8.1/24.2 Noted to be thrombocytopenic at 13 1 units platelet to be transfused today Dr. Krueger consulted, help appreciated Surgery Dr. Garcia on board s/p portacath ID Tmax 100.1 white count 0.1 today Blood cultures prelim positive for GP cocci started on vancomycin 1G Q [address] Mccollum consulted, help appreciated Endo Hx of DM ISS PPX: On Protonix Case discussed with Dr. Bronson <Rosendo Bronson S - Last Filed: 02/24/18 18:00> CCU Objective - Vital Signs / Intake & Output Vital Signs (Last 4 hours): Vital Signs Temp Pulse Resp BP Pulse Ox 02/24/18 17:23 98.9 F 90 25 H 93/50 L 02/24/18 17:20 93/52 L 02/24/18 17:00 90 18 91 L 02/24/18 16:45 91 H 26 H 100/46 L 92 L 02/24/18 16:18 98.7 F 84 26 H 122/57 L 02/24/18 16:05 99 H 10 L 110/36 L 91 L 02/24/18 16:03 98.7 F 83 26 H 110/36 L 02/24/18 16:00 98.9 F 97 H 24 93 L 02/24/18 15:48 98.9 F 94 H 25 H 122/57 L 02/24/18 15:29 99 H 24 122/57 L 94 L 02/24/18 15:24 100.6 F H 02/24/18 15:00 97 H 30 H 92 L 02/24/18 14:31 141/66 Intake and Output (Last 8hrs): Intake & Output 02/24/18 02/24/18 02/24/18 06:59 14:59 22:59 Intake Total 0 390 297 Balance 0 390 297 Weight 130 lb 1.6 oz Intake: Intake, IV Amount 350 100 Right Distal Port Port-A- 350 100 Cath Oral 0 40 0 Blood Product 197 Apheresis Plts Acda Lr 197 Irr 2nd Unit [id number] Other: # Bowel Movements 1 1 - Medications Active Medications: Active Medications Generic Name Dose Route Start Last Admin Trade Name Freq PRN Reason Stop Dose Admin Acetaminophen 650 mg 02/14/18 20:48 02/23/18 00:03 Tylenol 325mg Tab PO 650 mg Q6 PRN Administration pain Albuterol/Ipratropium 3 ml 02/20/18 02:00 02/24/18 13:50 Duoneb 3 Mg/0.5 Mg (3 Ml) Ud INH 3 ml RQ6 MILLIE Administration Albuterol/Ipratropium 3 ml 02/24/18 08:00 Duoneb 3 Mg/0.5 Mg (3 Ml) Ud INH RQ6 MILLIE Amlodipine Besylate 10 mg 02/06/18 09:11 02/24/18 09:44 Norvasc PO 10 mg DAILY MILLIE Administration Guaifenesin 200 mg 02/24/18 10:24 Robitussin PO Q4H PRN Cough and congestion Hydralazine HCl 50 mg 02/06/18 10:00 02/24/18 17:20 Apresoline PO Not Given TID [facility] Hydralazine HCl 10 mg 02/11/18 00:00 Apresoline IVP Q6H PRN Other Vancomycin/Sodium Chloride 1 gm in 200 mls @ 166.7 mls/hr 02/24/18 10:00 10/08 10:15 Vancomycin 1 Gm/Ns 200 Ml IVPB 03/01/18 10:01 166.7 mls/hr Q12H MILLIE Administration Protocol Cefepime HCl 2 gm in 100 mls @ 200 mls/hr 02/24/18 13:00 02/24/18 13:30 Maxipime Iv 2 Gm Premix IVPB 03/01/18 13:01 200 mls/hr Q8H MILLIE Administration Protocol Micafungin Sodium 100 mg/ 100 mls @ 100 mls/hr 02/24/18 13:00 02/24/18 13:24 Dextrose IV 100 mls/hr Q24H MILLIE Administration Protocol Insulin Aspart 0 unit 01/29/18 07:30 02/24/18 17:05 Novolog SC 3 units ACHS MILLIE Administration Protocol Methylprednisolone 20 mg 02/15/18 13:20 02/15/18 16:45 Solu-Medrol IVP 20 mg ONCE PRN Administration Give before 1st unit of PRBC Methylprednisolone 20 mg 02/15/18 13:38 02/16/18 02:35 Solu-Medrol IVP 20 mg ONCE PRN Administration give befor 2nd units of PRBC Methylprednisolone 20 mg 02/16/18 09:10 02/24/18 09:45 Solu-Medrol IVP 20 mg Q12H MILLIE Administration Metoprolol Tartrate 25 mg 02/24/18 10:30 02/24/18 17:20 Lopressor PO Not Given BID [facility] Multivitamins/Vitamin C 5 ml 02/24/18 10:15 02/24/18 11:03 Multi-Delyn Liquid PO 5 ml DAILY MILLIE Administration Pantoprazole Sodium 40 mg 02/24/18 10:15 02/24/18 10:50 Protonix Inj IVP 40 mg DAILY MILLIE Administration Simethicone 80 mg 02/17/18 20:31 02/18/18 20:28 Mylicon Chew Tab PO 80 mg Q8 PRN Administration GI distress Tiotropium [place] 18 mcg 01/30/18 08:00 02/24/18 13:51 Spiriva INH Not Given RQ24 MILLIE - Patient Studies Lab Studies: Microbiology Studies 02/23/18 21:45 S.aureus & Coag-Neg Staph PNA FISH - Final Blood-Venous Blood Culture - Preliminary Gram Positive Cocci Gram Stain - Final 02/23/18 21:15 Blood Culture - Preliminary Blood-Venous Gram Positive Cocci Gram Stain - Final Lab Studies 02/24/18 02/24/18 02/24/18 Range/Units 16:41 11:20 10:10 WBC (4.8-10.8) K/uL RBC (3.80-5.20) Mil/uL Hgb (11.0-16.0) g/dL Hct (34.0-47.0) % MCV (81.0-99.0) fL MCH (27.0-31.0) pg MCHC (33.0-37.0) g/dL RDW (11.5-14.5) % Plt Count (130-400) K/uL MPV (7.2-11.7) fL Neut % (Auto) (50.0-75.0) % Lymph % (Auto) (20.0-40.0) % Gem % (Auto) (0.0-10.0) % Eos % (Auto) (0.0-4.0) % Baso % (Auto) (0.0-2.0) % Neut # (Auto) (1.8-7.0) K/uL Lymph # (Auto) (1.0-4.3) K/uL Gem # (Auto) (0.0-0.8) K/uL Eos # (Auto) (0.0-0.7) K/uL Baso # (Auto) (0.0-0.2) K/uL Smear Path Review Sodium (132-148) mmol/L Potassium (3.6-5.2) mmol/L Chloride (98-107) mmol/L Carbon Dioxide (22-30) mmol/L Anion Gap (10-20) BUN (7-17) mg/dL Creatinine (0.7-1.2) mg/dL Est GFR ( Amer) Est GFR (Non-Af Amer) POC Glucose (mg/dL) 278 H 267 H (65-110) mg/dL Random Glucose (65-105) mg/dL Lactic Acid (0.7-2.1) mmol/L Calcium (8.6-10.4) mg/dl Phosphorus (2.5-4.5) mg/dL Magnesium (1.6-2.3) mg/dL Total Bilirubin (0.2-1.3) mg/dL AST (14-36) U/L ALT (9-52) U/L Alkaline Phosphatase (38-126) U/L Total Protein (6.3-8.3) g/dL Albumin (3.5-5.0) g/dL Globulin (2.2-3.9) gm/dL Albumin/Globulin Ratio (1.0-2.1) Ur L.pneumophila Ag Negative (NEGATIVE) Mycoplasma pneumon IgM Negative (NEGATIVE) 02/24/18 02/24/18 02/24/18 Range/Units 07:22 05:59 05:59 WBC 0.1 L* (4.8-10.8) K/uL RBC 3.04 L (3.80-5.20) Mil/uL Hgb 8.1 L (11.0-16.0) g/dL Hct 24.2 L (34.0-47.0) % MCV 79.6 L (81.0-99.0) fL MCH 26.7 L (27.0-31.0) pg MCHC 33.6 (33.0-37.0) g/dL RDW 21.0 H (11.5-14.5) % Plt Count 13 L* (130-400) K/uL MPV 12.3 H (7.2-11.7) fL Neut % (Auto) 44.4 L (50.0-75.0) % Lymph % (Auto) 36.8 (20.0-40.0) % Gem % (Auto) 17.1 H (0.0-10.0) % Eos % (Auto) 1.7 (0.0-4.0) % Baso % (Auto) 0.0 (0.0-2.0) % Neut # (Auto) 0.1 L (1.8-7.0) K/uL Lymph # (Auto) 0.0 L (1.0-4.3) K/uL Gem # (Auto) 0.0 (0.0-0.8) K/uL Eos # (Auto) 0.0 (0.0-0.7) K/uL Baso # (Auto) 0.0 (0.0-0.2) K/uL Smear Path Review Sodium (132-148) mmol/L Potassium (3.6-5.2) mmol/L Chloride (98-107) mmol/L Carbon Dioxide (22-30) mmol/L Anion Gap (10-20) BUN (7-17) mg/dL Creatinine (0.7-1.2) mg/dL Est GFR ( Amer) Est GFR (Non-Af Amer) POC Glucose (mg/dL) 341 H (65-110) mg/dL Random Glucose (65-105) mg/dL Lactic Acid 1.6 (0.7-2.1) mmol/L Calcium (8.6-10.4) mg/dl Phosphorus (2.5-4.5) mg/dL Magnesium (1.6-2.3) mg/dL Total Bilirubin (0.2-1.3) mg/dL AST (14-36) U/L ALT (9-52) U/L Alkaline Phosphatase (38-126) U/L Total Protein (6.3-8.3) g/dL Albumin (3.5-5.0) g/dL Globulin (2.2-3.9) gm/dL Albumin/Globulin Ratio (1.0-2.1) Ur L.pneumophila Ag (NEGATIVE) Mycoplasma pneumon IgM (NEGATIVE) 02/24/18 02/23/18 02/23/18 Range/Units 05:59 21:56 21:33 WBC (4.8-10.8) K/uL RBC (3.80-5.20) Mil/uL Hgb (11.0-16.0) g/dL Hct (34.0-47.0) % MCV (81.0-99.0) fL MCH (27.0-31.0) pg MCHC (33.0-37.0) g/dL RDW (11.5-14.5) % Plt Count (130-400) K/uL MPV (7.2-11.7) fL Neut % (Auto) (50.0-75.0) % Lymph % (Auto) (20.0-40.0) % Gem % (Auto) (0.0-10.0) % Eos % (Auto) (0.0-4.0) % Baso % (Auto) (0.0-2.0) % Neut # (Auto) (1.8-7.0) K/uL Lymph # (Auto) (1.0-4.3) K/uL Gem # (Auto) (0.0-0.8) K/uL Eos # (Auto) (0.0-0.7) K/uL Baso # (Auto) (0.0-0.2) K/uL Smear Path Review Sodium 143 (132-148) mmol/L Potassium 3.6 (3.6-5.2) mmol/L Chloride 103 (98-107) mmol/L Carbon Dioxide 34 H (22-30) mmol/L Anion Gap 10 (10-20) BUN 28 H (7-17) mg/dL Creatinine 0.4 L (0.7-1.2) mg/dL Est GFR ( Amer) > 60 Est GFR (Non-Af Amer) > 60 POC Glucose (mg/dL) 284 H (65-110) mg/dL Random Glucose 332 H (65-105) mg/dL Lactic Acid 1.8 (0.7-2.1) mmol/L Calcium 8.8 (8.6-10.4) mg/dl Phosphorus 2.6 (2.5-4.5) mg/dL Magnesium 1.9 (1.6-2.3) mg/dL Total Bilirubin 1.4 H (0.2-1.3) mg/dL AST 19 (14-36) U/L ALT 111 H (9-52) U/L Alkaline Phosphatase 213 H (38-126) U/L Total Protein 4.4 L (6.3-8.3) g/dL Albumin 2.1 L (3.5-5.0) g/dL Globulin 2.3 (2.2-3.9) gm/dL Albumin/Globulin Ratio 0.9 L (1.0-2.1) Ur L.pneumophila Ag (NEGATIVE) Mycoplasma pneumon IgM (NEGATIVE) 02/23/18 Range/Units 06:16 WBC (4.8-10.8) K/uL RBC (3.80-5.20) Mil/uL Hgb (11.0-16.0) g/dL Hct (34.0-47.0) % MCV (81.0-99.0) fL MCH (27.0-31.0) pg MCHC (33.0-37.0) g/dL RDW (11.5-14.5) % Plt Count (130-400) K/uL MPV (7.2-11.7) fL Neut % (Auto) (50.0-75.0) % Lymph % (Auto) (20.0-40.0) % Gem % (Auto) (0.0-10.0) % Eos % (Auto) (0.0-4.0) % Baso % (Auto) (0.0-2.0) % Neut # (Auto) (1.8-7.0) K/uL Lymph # (Auto) (1.0-4.3) K/uL Gem # (Auto) (0.0-0.8) K/uL Eos # (Auto) (0.0-0.7) K/uL Baso # (Auto) (0.0-0.2) K/uL Smear Path Review Sodium (132-148) mmol/L Potassium (3.6-5.2) mmol/L Chloride (98-107) mmol/L Carbon Dioxide (22-30) mmol/L Anion Gap (10-20) BUN (7-17) mg/dL Creatinine (0.7-1.2) mg/dL Est GFR ( Amer) Est GFR (Non-Af Amer) POC Glucose (mg/dL) (65-110) mg/dL Random Glucose (65-105) mg/dL Lactic Acid (0.7-2.1) mmol/L Calcium (8.6-10.4) mg/dl Phosphorus (2.5-4.5) mg/dL Magnesium (1.6-2.3) mg/dL Total Bilirubin (0.2-1.3) mg/dL AST (14-36) U/L ALT (9-52) U/L Alkaline Phosphatase (38-126) U/L Total Protein (6.3-8.3) g/dL Albumin (3.5-5.0) g/dL Globulin (2.2-3.9) gm/dL Albumin/Globulin Ratio (1.0-2.1) Ur L.pneumophila Ag (NEGATIVE) Mycoplasma pneumon IgM (NEGATIVE) Laboratory Results - last 24 hr 02/23/18 02/23/18 02/23/18 06:16 21:33 21:56 WBC RBC Hgb Hct MCV MCH MCHC RDW Plt Count MPV Neut % (Auto) Lymph % (Auto) Gem % (Auto) Eos % (Auto) Baso % (Auto) Neut # (Auto) Lymph # (Auto) Gem # (Auto) Eos # (Auto) Baso # (Auto) Smear Path Review Sodium Potassium Chloride Carbon Dioxide Anion Gap BUN Creatinine Est GFR ( Amer) Est GFR (Non-Af Amer) POC Glucose (mg/dL) 284 H Random Glucose Lactic Acid 1.8 Calcium Phosphorus Magnesium Total Bilirubin AST ALT Alkaline Phosphatase Total Protein Albumin Globulin Albumin/Globulin Ratio Ur L.pneumophila Ag Mycoplasma pneumon IgM 02/24/18 02/24/18 02/24/18 05:59 05:59 05:59 WBC 0.1 L* RBC 3.04 L Hgb 8.1 L Hct 24.2 L MCV 79.6 L MCH 26.7 L MCHC 33.6 RDW 21.0 H Plt Count 13 L* MPV 12.3 H Neut % (Auto) 44.4 L Lymph % (Auto) 36.8 Gem % (Auto) 17.1 H Eos % (Auto) 1.7 Baso % (Auto) 0.0 Neut # (Auto) 0.1 L Lymph # (Auto) 0.0 L Gem # (Auto) 0.0 Eos # (Auto) 0.0 Baso # (Auto) 0.0 Smear Path Review Sodium 143 Potassium 3.6 Chloride 103 Carbon Dioxide 34 H Anion Gap 10 BUN 28 H Creatinine 0.4 L Est GFR ( Amer) > 60 Est GFR (Non-Af Amer) > 60 POC Glucose (mg/dL) Random Glucose 332 H Lactic Acid 1.6 Calcium 8.8 Phosphorus 2.6 Magnesium 1.9 Total Bilirubin 1.4 H AST 19 ALT 111 H Alkaline Phosphatase 213 H Total Protein 4.4 L Albumin 2.1 L Globulin 2.3 Albumin/Globulin Ratio 0.9 L Ur L.pneumophila Ag Mycoplasma pneumon IgM 02/24/18 02/24/18 02/24/18 07:22 10:10 11:20 WBC RBC Hgb Hct MCV MCH MCHC RDW Plt Count MPV Neut % (Auto) Lymph % (Auto) Gem % (Auto) Eos % (Auto) Baso % (Auto) Neut # (Auto) Lymph # (Auto) Gem # (Auto) Eos # (Auto) Baso # (Auto) Smear Path Review Sodium Potassium Chloride Carbon Dioxide Anion Gap BUN Creatinine Est GFR ( Amer) Est GFR (Non-Af Amer) POC Glucose (mg/dL) 341 H 267 H Random Glucose Lactic Acid Calcium Phosphorus Magnesium Total Bilirubin AST ALT Alkaline Phosphatase Total Protein Albumin Globulin Albumin/Globulin Ratio Ur L.pneumophila Ag Negative Mycoplasma pneumon IgM Negative 02/24/18 16:41 WBC RBC Hgb Hct MCV MCH MCHC RDW Plt Count MPV Neut % (Auto) Lymph % (Auto) Gem % (Auto) Eos % (Auto) Baso % (Auto) Neut # (Auto) Lymph # (Auto) Gem # (Auto) Eos # (Auto) Baso # (Auto) Smear Path Review Sodium Potassium Chloride Carbon Dioxide Anion Gap BUN Creatinine Est GFR ( Amer) Est GFR (Non-Af Amer) POC Glucose (mg/dL) 278 H Random Glucose Lactic Acid Calcium Phosphorus Magnesium Total Bilirubin AST ALT Alkaline Phosphatase Total Protein Albumin Globulin Albumin/Globulin Ratio Ur L.pneumophila Ag Mycoplasma pneumon IgM Critical Care Progress Note - Nutrition Nutrition: Nutrition Category Date Time Status Diabetic [Consistent Carbohydrate] [DIET] Diets 02/07/18 Lunch Active Attending/Attestation - Attestation I have personally seen and examined this patient.: Yes I have fully participated in the care of the patient.: Yes I have reviewed all pertinent clinical information: Yes Notes (Text): 02/24/18 18:00 patient seen and examined Continue IV antibiotics as per infectious disease Culture and sensitivity noted Transfuse platelets Monitor CBC NG tube feeding Continue ICU observation Case discussed with family
[2018-02-24] MEDS: Multiple Vitamins Oral Solution PO SCH (11:03)
[2018-02-24 11:27] LABS: LEGIONELLA AG URINE NEGATIVE (NEGATIVE)
[2018-02-24] MEDS: Multiple Vitamins Tab PO SCH (11:35)
[2018-02-24] MEDS: guaiFENesin 600 mg ER Tab PO SCH (11:36)
[2018-02-24] MEDS: Metoprolol Succinate 50 mg XL Tab PO SCH (11:36)
[2018-02-24] MEDS: Pantoprazole 40 mg EC Tab PO SCH (11:36)
--- NOTE | 2018-02-24 12:46 | CP.PCM.PN ---
Subjective - Date & Time of Evaluation Date of Evaluation: 02/24/18 Time of Evaluation: 09:00 - Subjective Subjective: seen on rounds in ICU weak NAD arousable confused Objective - Vital Signs/Intake and Output Vital Signs (last 24 hours): Temp Pulse Resp BP Pulse Ox 98.9 F 111 H 29 H 121/54 L 93 L 02/24/18 12:00 02/24/18 12:00 02/24/18 12:00 02/24/18 11:30 02/24/18 12:00 Intake and Output: 02/24/18 02/24/18 06:59 18:59 Intake Total 0 290 Balance 0 290 - Medications Medications: Current Medications Acetaminophen (Tylenol 325mg Tab) 650 mg PO Q6 PRN PRN Reason: pain Last Admin: 02/23/18 00:03 Dose: 650 mg Albuterol/Ipratropium (Duoneb 3 Mg/0.5 Mg (3 Ml) Ud) 3 ml INH RQ6 [facility]ILLIE Last Admin: 02/24/18 07:49 Dose: 3 ml Albuterol/Ipratropium (Duoneb 3 Mg/0.5 Mg (3 Ml) Ud) 3 ml INH RQ6 [facility]IE Amlodipine Besylate (Norvasc) 10 mg PO DAILY [facility] Last Admin: 02/24/18 09:44 Dose: 10 mg Guaifenesin (Robitussin) 200 mg PO Q4H PRN PRN Reason: Cough and congestion Hydralazine HCl (Apresoline) 50 mg PO TID [facility] Last Admin: 02/24/18 09:44 Dose: 50 mg Hydralazine HCl (Apresoline) 10 mg IVP Q6H PRN PRN Reason: Other Cefepime HCl 1 gm/ Dextrose 50 mls @ 100 mls/hr IVPB Q12H MILLIE PRN Reason: Protocol Last Admin: 02/24/18 10:13 Dose: 100 mls/hr Vancomycin/Sodium Chloride (Vancomycin 1 Gm/Ns 200 Ml) 1 gm in 200 mls @ 166.7 mls/hr IVPB Q12H [facility]IE PRN Reason: Protocol Stop: 03/01/18 10:01 Last Admin: 02/24/18 10:15 Dose: 166.7 mls/hr Insulin Aspart (Novolog) 0 unit SC ACHS [facility]ILLIE PRN Reason: Protocol Last Admin: 02/24/18 11:35 Dose: 3 units Methylprednisolone (Solu-Medrol) 20 mg IVP ONCE PRN PRN Reason: Give before 1st unit of PRBC Last Admin: 02/15/18 16:45 Dose: 20 mg Methylprednisolone (Solu-Medrol) 20 mg IVP ONCE PRN PRN Reason: give befor 2nd units of PRBC Last Admin: 02/16/18 02:35 Dose: 20 mg Methylprednisolone (Solu-Medrol) 20 mg IVP Q12H [facility] Last Admin: 02/24/18 09:45 Dose: 20 mg Metoprolol Tartrate (Lopressor) 25 mg PO BID [facility] Last Admin: 02/24/18 10:49 Dose: 25 mg Multivitamins/Vitamin C (Multi-Delyn Liquid) 5 ml PO DAILY [facility] Last Admin: 02/24/18 11:03 Dose: 5 ml Pantoprazole Sodium (Protonix Inj) 40 mg IVP DAILY [facility] Last Admin: 02/24/18 10:50 Dose: 40 mg Simethicone (Mylicon Chew Tab) 80 mg PO Q8 PRN PRN Reason: GI distress Last Admin: 02/18/18 20:28 Dose: 80 mg Tiotropium [place] (Spiriva) 18 mcg INH RQ24 [facility] Last Admin: 02/23/18 07:41 Dose: 18 mcg - Labs Labs: 02/24/18 05:59 02/24/18 05:59 PT 15.9 SECONDS (9.7-12.2) H 01/28/18 10:14 INR 1.5 01/28/18 10:14 APTT 30 SECONDS (21-34) 01/28/18 10:14 - Constitutional Appears: Non-toxic, Chronically Ill - Head Exam Head Exam: NORMOCEPHALIC - Eye Exam Eye Exam: PERRL - ENT Exam ENT Exam: Mucous Membranes Dry - Neck Exam Neck Exam: absent: Lymphadenopathy - Respiratory Exam Respiratory Exam: Decreased Breath Sounds - Cardiovascular Exam Cardiovascular Exam: REGULAR RHYTHM - GI/Abdominal Exam GI & Abdominal Exam: Distended, Soft. absent: Tenderness - Rectal Exam Rectal Exam: Deferred - Exam Exam: NORMAL INSPECTION - Extremities Exam Extremities Exam: absent: Pedal Edema - Back Exam Back Exam: absent: CVA tenderness (L), CVA tenderness (R) - Neurological Exam Neurological Exam: Alert, Awake, Oriented x3 - Psychiatric Exam Psychiatric exam: Depressed Assessment and Plan (1) CHF (congestive heart failure) Status: Acute (2) COPD exacerbation Status: Acute (3) Dehydration Status: Acute - Assessment and Plan (Free Text) Assessment: bacteremia- source unclear may need to remove/ replace port await cultures cont IV antibiotics
[2018-02-24] MEDS: Micafungin 100 MG in Dextrose 5% In Water 100 ML IV SCH (13:24)
[2018-02-24] MEDS: Cefepime IV 2 gm in Dextrose 2 GM/100 ML BAG IVPB SCH ×2 (13:30→20:42)
[2018-02-24] MEDS: Tiotropium 18 mcg Cap For Inhalation INH SCH (13:51)
[2018-02-24 15:23] LABS: MYCOPLASMA PNEUMONIAE IGM NEGATIVE (NEGATIVE)
--- NOTE | 2018-02-24 15:39 | CT ---
Date of service: 02/23/2018 PROCEDURE: CT Chest without contrast HISTORY: cough COMPARISON: None available. TECHNIQUE: Contiguous axial images were obtained through the chest without intravenous contrast enhancement. Sagittal and coronal reconstructions were performed. Radiation dose (DLP): 418.70 mGy-cm. This CT exam was performed using one or more of the following dose reduction techniques: Automated exposure control, adjustment of the mA and/or kV according to patient size, and/or use of iterative reconstruction technique. FINDINGS: LUNGS: There is increase in consolidation affecting the bilateral lower lobes predominantly but also affecting inferior subsegments of the bilateral upper lobes with minimal involvement of the right middle lobe. Central airways remain clear. MEDIASTINUM: Unremarkable thoracic aorta. No aneurysm. Normal sized heart. Relatively extensive coronary artery calcification reiterated as well as at the mitral annulus. No pericardial effusion. Main pulmonary artery unremarkable. No vascular congestion. No lymphadenopathy. Right internal jugular MediPort in position terminating at the inferior SVC. PLEURA: Diminished right pleural fluid. No left pleural effusion. No pneumothorax. BONES: No fracture. No destructive lesion. UPPER ABDOMEN: Cholelithiasis. Bilateral adrenal hypertrophy without gross mass evident. Mild splenomegaly to 13.6 cm. Small hiatal hernia identified. OTHER FINDINGS: None. IMPRESSION: 1. Interval worsening bilateral pneumonia affecting primarily the bilateral lower lobes greater than the bilateral upper lobes and minimally involving the middle lobe. Prior right pleural effusion diminished in the interval. 2. Abdominal findings as discussed above. Concordant preliminary report from [facility], 02/23/2018.
--- NOTE | 2018-02-24 19:25 | CP.PCM.PN ---
Subjective - Date & Time of Evaluation Date of Evaluation: 02/24/18 Time of Evaluation: 13:45 - Subjective Subjective: clinically same Objective - Vital Signs/Intake and Output Vital Signs (last 24 hours): Temp Pulse Resp BP Pulse Ox 98.9 F 90 30 H 101/48 L 92 L 02/24/18 17:23 02/24/18 18:00 02/24/18 18:00 02/24/18 17:43 02/24/18 18:00 Intake and Output: 02/24/18 02/25/18 18:59 06:59 Intake Total 687 Output Total 400 Balance 287 - Medications Medications: Current Medications Acetaminophen (Tylenol 325mg Tab) 650 mg PO Q6 PRN PRN Reason: pain Last Admin: 02/23/18 00:03 Dose: 650 mg Albuterol/Ipratropium (Duoneb 3 Mg/0.5 Mg (3 Ml) Ud) 3 ml INH RQ6 MILLIE Last Admin: 02/24/18 13:50 Dose: 3 ml Albuterol/Ipratropium (Duoneb 3 Mg/0.5 Mg (3 Ml) Ud) 3 ml INH RQ6 [facility]ILLIE Amlodipine Besylate (Norvasc) 10 mg PO DAILY [facility] Last Admin: 02/24/18 09:44 Dose: 10 mg Guaifenesin (Robitussin) 200 mg PO Q4H PRN PRN Reason: Cough and congestion Hydralazine HCl (Apresoline) 50 mg PO TID [facility] Last Admin: 02/24/18 17:20 Dose: Not Given Hydralazine HCl (Apresoline) 10 mg IVP Q6H PRN PRN Reason: Other Vancomycin/Sodium Chloride (Vancomycin 1 Gm/Ns 200 Ml) 1 gm in 200 mls @ 166.7 mls/hr IVPB Q12H [facility]ILLIE PRN Reason: Protocol Stop: 03/01/18 10:01 Last Admin: 02/24/18 10:15 Dose: 166.7 mls/hr Cefepime HCl (Maxipime Iv 2 Gm Premix) 2 gm in 100 mls @ 200 mls/hr IVPB Q8H [facility]ILLIE PRN Reason: Protocol Stop: 03/01/18 13:01 Last Admin: 02/24/18 13:30 Dose: 200 mls/hr Micafungin Sodium 100 mg/ (Dextrose) 100 mls @ 100 mls/hr IV Q24H [facility] PRN Reason: Protocol Last Admin: 02/24/18 13:24 Dose: 100 mls/hr Insulin Aspart (Novolog) 0 unit SC ACHS MILLIE PRN Reason: Protocol Last Admin: 02/24/18 17:05 Dose: 3 units Methylprednisolone (Solu-Medrol) 20 mg IVP ONCE PRN PRN Reason: Give before 1st unit of PRBC Last Admin: 02/15/18 16:45 Dose: 20 mg Methylprednisolone (Solu-Medrol) 20 mg IVP ONCE PRN PRN Reason: give befor 2nd units of PRBC Last Admin: 02/16/18 02:35 Dose: 20 mg Methylprednisolone (Solu-Medrol) 20 mg IVP Q12H [facility] Last Admin: 02/24/18 09:45 Dose: 20 mg Metoprolol Tartrate (Lopressor) 25 mg PO BID [facility] Last Admin: 02/24/18 17:20 Dose: Not Given Multivitamins/Vitamin C (Multi-Delyn Liquid) 5 ml PO DAILY [facility] Last Admin: 02/24/18 11:03 Dose: 5 ml Pantoprazole Sodium (Protonix Inj) 40 mg IVP DAILY [facility] Last Admin: 02/24/18 10:50 Dose: 40 mg Simethicone (Mylicon Chew Tab) 80 mg PO Q8 PRN PRN Reason: GI distress Last Admin: 02/18/18 20:28 Dose: 80 mg Tiotropium [place] (Spiriva) 18 mcg INH RQ24 [facility] Last Admin: 02/24/18 13:51 Dose: Not Given - Labs Labs: 02/24/18 05:59 02/24/18 05:59 PT 15.9 SECONDS (9.7-12.2) H 01/28/18 10:14 INR 1.5 01/28/18 10:14 APTT 30 SECONDS (21-34) 01/28/18 10:14 - Constitutional Appears: Well - Head Exam Head Exam: ATRAUMATIC, NORMAL INSPECTION, NORMOCEPHALIC - Eye Exam Eye Exam: EOMI, Normal appearance, PERRL Pupil Exam: NORMAL ACCOMODATION, PERRL - ENT Exam ENT Exam: Mucous Membranes Moist, Normal Exam - Neck Exam Neck Exam: Full ROM, Normal Inspection. 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 bacteremia- source unclear await cultures cont IV antibiotics Awake and alert Dr. Mccollum consulted, help appreciated GI Protonix 40mg IV
[2018-02-25] MEDS: (Novolog) Insulin Aspart, Recombinant 100 u/ml 10 ml vial SC SCH ×4 (00:45→17:45)
[2018-02-25] MEDS: Albuterol-Ipratrop 3 mg / 0.5 (3 ml) UD INH SCH ×4 (01:23→20:57)
[2018-02-25] MEDS: Cefepime IV 2 gm in Dextrose 2 GM/100 ML BAG IVPB SCH ×2 (05:05→12:49)
[2018-02-25 06:03] LABS: HEMOGLOBIN 7.3 g/dL (11.0-16.0); LYMPH % 15.4 % (20.0-40.0); MEAN CELL VOLUME 79.9 fL (81.0-99.0); MEAN CORPUSCULAR HEMOGLOBIN 26.6 pg (27.0-31.0); MEAN CORPUSCULAR HGB CONC 33.3 g/dL (33.0-37.0); MEAN PLATELET VOLUME 10.7 fL (7.2-11.7); MONO # 0.1 K/uL (0.0-0.8); MONO % 24.3 % (0.0-10.0); NEUT # 0.2 K/uL (1.8-7.0); NEUT % 60.3 % (50.0-75.0); RBC 2.76 Mil/uL (3.80-5.20); RED CELL DISTRIBUTION WIDTH 21.1 % (11.5-14.5)
[2018-02-25 06:21] LABS: WHITE BLOOD COUNT 0.3 K/uL (4.8-10.8)
[2018-02-25 06:25] LABS: ALB/GLOB RATIO 0.9 (1.0-2.1); ALBUMIN 2.1 g/dL (3.5-5.0); ALT/SGPT 102 U/L (9-52); AST/SGOT 24 U/L (14-36); BLOOD UREA NITROGEN 36 mg/dL (7-17); CALCIUM 8.4 mg/dl (8.6-10.4); GFR NON-AFRICAN AMERICAN > 60
[2018-02-25] MEDS ORDERED: Potassium Chloride 20 mEq/15 ml LIQ UD PO ONE (07:45)
[2018-02-25] MEDS: Vancomycin 1 gm/NS 200 ml 1 GM/200 ML BAG IVPB SCH ×2 (09:41→22:40)
[2018-02-25] MEDS: Multiple Vitamins Oral Solution PO SCH (09:56)
--- NOTE | 2018-02-25 10:36 | CP.CCUPN ---
<Nickolas Tyler - Last Filed: 02/25/18 17:15> CCU Subjective - Physician Review Subjective (Free Text): ICU Progress note Patient seen and examined at bedside. Patient is noted to have cough with chest congestion. Patient appears weak and provide no further history. Daughter is present at bedside. 02/25/18 13:13 CCU Objective - Vital Signs / Intake & Output Vital Signs (Last 4 hours): Vital Signs Pulse Resp BP Pulse Ox 02/25/18 09:57 130/61 02/25/18 08:00 105 H 32 H 75 L 02/25/18 07:54 104 H 13 78 L 02/25/18 07:30 22 Intake and Output (Last 8hrs): Intake & Output 02/24/18 02/25/18 02/25/18 22:59 06:59 14:59 Intake Total 497 0 Output Total 400 Balance 97 0 Weight 130 lb 3.2 oz Intake: Intake, IV Amount 300 Right Distal Port Port-A- 300 Cath Oral 0 0 Blood Product 197 Apheresis Plts Acda Lr 197 Irr 2nd Unit [id number] Output: Urine 400 Urine, Voided 400 Other: # Bowel Movements 1 1 - Physical Exam Head: Positive for: Atraumatic, Normocephalic Pupils: Positive for: PERRL Extroacular Muscles: Positive for: EOMI Mouth: Positive for: Moist Mucous Membranes Respiratory/Chest: Positive for: Decreased Breath Sounds, Rhonchi, Other (Noted to have wet cough ) Cardiovascular: Positive for: Normal S1, S2, Tachycardic, Other (portacath R chest) Abdomen: Positive for: Normal Bowel Sounds. Negative for: Tenderness, Distention, Peritoneal Signs Upper Extremity: Positive for: NORMAL PULSES (radial pulses ) Lower Extremity: Positive for: Other (scds in place). Negative for: Edema Skin: Positive for: Warm, Dry Psychiatric: Positive for: Alert - Medications Active Medications: Active Medications Generic Name Dose Route Start Last Admin Trade Name Freq PRN Reason Stop Dose Admin Acetaminophen 650 mg 02/14/18 20:48 02/23/18 00:03 Tylenol 325mg Tab PO 650 mg Q6 PRN Administration pain Albuterol/Ipratropium 3 ml 02/24/18 08:00 02/25/18 01:23 Duoneb 3 Mg/0.5 Mg (3 Ml) Ud INH 3 ml RQ6 MILLIE Administration Amlodipine Besylate 10 mg 02/06/18 09:11 02/25/18 09:56 Norvasc PO 10 mg DAILY MILLIE Administration Guaifenesin 200 mg 02/24/18 10:24 Robitussin PO Q4H PRN Cough and congestion Hydralazine HCl 50 mg 02/06/18 10:00 02/25/18 09:56 Apresoline PO 50 mg TID MILLIE Administration Hydralazine HCl 10 mg 02/11/18 00:00 Apresoline IVP Q6H PRN Other Vancomycin/Sodium Chloride 1 gm in 200 mls @ 166.7 mls/hr 02/24/18 10:00 11/07 09:41 Vancomycin 1 Gm/Ns 200 Ml IVPB 03/01/18 10:01 166.7 mls/hr Q12H MILLIE Administration Protocol Cefepime HCl 2 gm in 100 mls @ 200 mls/hr 02/24/18 13:00 02/25/18 05:05 Maxipime Iv 2 Gm Premix IVPB 03/01/18 13:01 200 mls/hr Q8H MILLIE Administration Protocol Micafungin Sodium 100 mg/ 100 mls @ 100 mls/hr 02/24/18 13:00 02/24/18 13:24 Dextrose IV 100 mls/hr Q24H MILLIE Administration Protocol Potassium Chloride 20 meq in 100 mls @ 50 mls/hr 02/25/18 10:00 02/25/18 09: 00 Potassium Chloride 20 Meq/100 Ml IVPB 02/25/18 13:59 50 mls/hr Q2 MILLIE Administration Insulin Aspart 0 unit 01/29/18 07:30 02/25/18 08:10 Novolog SC 3 units ACHS MILLIE Administration Protocol Methylprednisolone 20 mg 02/25/18 22:00 Solu-Medrol IVP Q12 MILLIE Metoprolol Tartrate 25 mg 02/24/18 10:30 02/25/18 09:57 Lopressor PO 25 mg BID MILLIE Administration Multivitamins/Vitamin C 5 ml 02/24/18 10:15 02/25/18 09:56 Multi-Delyn Liquid PO 5 ml DAILY MILLIE Administration Pantoprazole Sodium 40 mg 02/24/18 10:15 02/25/18 09:56 Protonix Inj IVP 40 mg DAILY MILLIE Administration Simethicone 80 mg 02/17/18 20:31 02/18/18 20:28 Mylicon Chew Tab PO 80 mg Q8 PRN Administration GI distress Tiotropium Duson 18 mcg 01/30/18 08:00 02/24/18 13:51 Spiriva INH Not Given RQ24 MILLIE - Patient Studies Lab Studies: Microbiology Studies 02/23/18 21:45 S.aureus & Coag-Neg Staph PNA FISH - Final Blood-Venous Blood Culture - Preliminary Gram Positive Cocci Gram Stain - Final 02/23/18 21:15 Blood Culture - Preliminary Blood-Venous Gram Positive Cocci Gram Stain - Final Lab Studies 02/25/18 02/25/18 02/25/18 Range/Units 07:25 05:54 05:54 WBC (4.8-10.8) K/uL RBC (3.80-5.20) Mil/uL Hgb (11.0-16.0) g/dL Hct (34.0-47.0) % MCV (81.0-99.0) fL MCH (27.0-31.0) pg MCHC (33.0-37.0) g/dL RDW (11.5-14.5) % Plt Count (130-400) K/uL MPV (7.2-11.7) fL Neut % (Auto) (50.0-75.0) % Lymph % (Auto) (20.0-40.0) % Elbert % (Auto) (0.0-10.0) % Eos % (Auto) (0.0-4.0) % Baso % (Auto) (0.0-2.0) % Neut # (Auto) (1.8-7.0) K/uL Lymph # (Auto) (1.0-4.3) K/uL Elbert # (Auto) (0.0-0.8) K/uL Eos # (Auto) (0.0-0.7) K/uL Baso # (Auto) (0.0-0.2) K/uL Total Counted Neutrophils % (Manual) Band Neutrophils % Lymphocytes % (Manual) Reactive Lymphs % Monocytes % (Manual) Eosinophils % (Manual) Basophils % (Manual) Metamyelocytes % Myelocytes % Promyelocytes % Blast Cells % Plasma Cell % (Manual) Nucleated RBC % Hypersegmented Polys Smudge Cells Toxic Granulation Dohle Bodies Wallace Rods Platelet Estimate Plt Clumps, EDTA Large Platelets Giant Platelets RBC Morphology Polychromasia Hypochromasia (manual) Poikilocytosis (manual Basophilic Stippling Anisocytosis (manual) Microcytosis (manual) Macrocytosis (manual) Spherocytes Sickle Cells Target Cells Tear Drop Cells Ovalocytes Stomatocytes Helmet Cells Mckoy-Stayton Bodies Tia Cells Acanthocytes (Spur) Rouleaux Schistocytes Sodium 147 (132-148) mmol/L Potassium 3.3 L (3.6-5.2) mmol/L Chloride 108 H (98-107) mmol/L Carbon Dioxide 32 H (22-30) mmol/L Anion Gap 11 (10-20) BUN 36 H (7-17) mg/dL Creatinine 0.4 L (0.7-1.2) mg/dL Est GFR ( Amer) > 60 Est GFR (Non-Af Amer) > 60 POC Glucose (mg/dL) 255 H (65-110) mg/dL Random Glucose 258 H (65-105) mg/dL Calcium 8.4 L (8.6-10.4) mg/dl Phosphorus 2.8 (2.5-4.5) mg/dL Magnesium 2.0 (1.6-2.3) mg/dL Total Bilirubin 1.3 (0.2-1.3) mg/dL AST 24 (14-36) U/L ALT 102 H (9-52) U/L Alkaline Phosphatase 188 H (38-126) U/L Total Protein 4.4 L (6.3-8.3) g/dL Albumin 2.1 L (3.5-5.0) g/dL Globulin 2.3 (2.2-3.9) gm/dL Albumin/Globulin Ratio 0.9 L (1.0-2.1) Vancomycin Trough 12.4 H (5.0-10.0) ug/mL Ur L.pneumophila Ag (NEGATIVE) Mycoplasma pneumon IgM (NEGATIVE) 02/25/18 02/24/18 02/24/18 Range/Units 05:54 21:14 16:41 WBC 0.3 L* D (4.8-10.8) K/uL RBC 2.76 L (3.80-5.20) Mil/uL Hgb 7.3 L (11.0-16.0) g/dL Hct 22.1 L (34.0-47.0) % MCV 79.9 L (81.0-99.0) fL MCH 26.6 L (27.0-31.0) pg MCHC 33.3 (33.0-37.0) g/dL RDW 21.1 H (11.5-14.5) % Plt Count 16 L* (130-400) K/uL MPV 10.7 (7.2-11.7) fL Neut % (Auto) 60.3 (50.0-75.0) % Lymph % (Auto) 15.4 L (20.0-40.0) % Elbert % (Auto) 24.3 H (0.0-10.0) % Eos % (Auto) 0.0 (0.0-4.0) % Baso % (Auto) 0.0 (0.0-2.0) % Neut # (Auto) 0.2 L (1.8-7.0) K/uL Lymph # (Auto) 0.0 L (1.0-4.3) K/uL Elbert # (Auto) 0.1 (0.0-0.8) K/uL Eos # (Auto) 0.0 (0.0-0.7) K/uL Baso # (Auto) 0.0 (0.0-0.2) K/uL Total Counted Cancelled Neutrophils % (Manual) Cancelled Band Neutrophils % Cancelled Lymphocytes % (Manual) Cancelled Reactive Lymphs % Cancelled Monocytes % (Manual) Cancelled Eosinophils % (Manual) Cancelled Basophils % (Manual) Cancelled Metamyelocytes % Cancelled Myelocytes % Cancelled Promyelocytes % Cancelled Blast Cells % Cancelled Plasma Cell % (Manual) Cancelled Nucleated RBC % Cancelled Hypersegmented Polys Cancelled Smudge Cells Cancelled Toxic Granulation Cancelled Dohle Bodies Cancelled Wallace Rods Cancelled Platelet Estimate Cancelled Plt Clumps, EDTA Cancelled Large Platelets Cancelled Giant Platelets Cancelled RBC Morphology Cancelled Polychromasia Cancelled Hypochromasia (manual) Cancelled Poikilocytosis (manual Cancelled Basophilic Stippling Cancelled Anisocytosis (manual) Cancelled Microcytosis (manual) Cancelled Macrocytosis (manual) Cancelled Spherocytes Cancelled Sickle Cells Cancelled Target Cells Cancelled Tear Drop Cells Cancelled Ovalocytes Cancelled Stomatocytes Cancelled Helmet Cells Cancelled Mckoy-Stayton Bodies Cancelled Perry Cells Cancelled Acanthocytes (Spur) Cancelled Rouleaux Cancelled Schistocytes Cancelled Sodium (132-148) mmol/L Potassium (3.6-5.2) mmol/L Chloride (98-107) mmol/L Carbon Dioxide (22-30) mmol/L Anion Gap (10-20) BUN (7-17) mg/dL Creatinine (0.7-1.2) mg/dL Est GFR ( Amer) Est GFR (Non-Af Amer) POC Glucose (mg/dL) 208 H 278 H (65-110) mg/dL Random Glucose (65-105) mg/dL Calcium (8.6-10.4) mg/dl Phosphorus (2.5-4.5) mg/dL Magnesium (1.6-2.3) mg/dL Total Bilirubin (0.2-1.3) mg/dL AST (14-36) U/L ALT (9-52) U/L Alkaline Phosphatase (38-126) U/L Total Protein (6.3-8.3) g/dL Albumin (3.5-5.0) g/dL Globulin (2.2-3.9) gm/dL Albumin/Globulin Ratio (1.0-2.1) Vancomycin Trough (5.0-10.0) ug/mL Ur L.pneumophila Ag (NEGATIVE) Mycoplasma pneumon IgM (NEGATIVE) 02/24/18 02/24/18 Range/Units 11:20 10:10 WBC (4.8-10.8) K/uL RBC (3.80-5.20) Mil/uL Hgb (11.0-16.0) g/dL Hct (34.0-47.0) % MCV (81.0-99.0) fL MCH (27.0-31.0) pg MCHC (33.0-37.0) g/dL RDW (11.5-14.5) % Plt Count (130-400) K/uL MPV (7.2-11.7) fL Neut % (Auto) (50.0-75.0) % Lymph % (Auto) (20.0-40.0) % Elbert % (Auto) (0.0-10.0) % Eos % (Auto) (0.0-4.0) % Baso % (Auto) (0.0-2.0) % Neut # (Auto) (1.8-7.0) K/uL Lymph # (Auto) (1.0-4.3) K/uL Elbert # (Auto) (0.0-0.8) K/uL Eos # (Auto) (0.0-0.7) K/uL Baso # (Auto) (0.0-0.2) K/uL Total Counted Neutrophils % (Manual) Band Neutrophils % Lymphocytes % (Manual) Reactive Lymphs % Monocytes % (Manual) Eosinophils % (Manual) Basophils % (Manual) Metamyelocytes % Myelocytes % Promyelocytes % Blast Cells % Plasma Cell % (Manual) Nucleated RBC % Hypersegmented Polys Smudge Cells Toxic Granulation Dohle Bodies Wallace Rods Platelet Estimate Plt Clumps, EDTA Large Platelets Giant Platelets RBC Morphology Polychromasia Hypochromasia (manual) Poikilocytosis (manual Basophilic Stippling Anisocytosis (manual) Microcytosis (manual) Macrocytosis (manual) Spherocytes Sickle Cells Target Cells Tear Drop Cells Ovalocytes Stomatocytes Helmet Cells Mckoy-Stayton Bodies Perry Cells Acanthocytes (Spur) Rouleaux Schistocytes Sodium (132-148) mmol/L Potassium (3.6-5.2) mmol/L Chloride (98-107) mmol/L Carbon Dioxide (22-30) mmol/L Anion Gap (10-20) BUN (7-17) mg/dL Creatinine (0.7-1.2) mg/dL Est GFR ( Amer) Est GFR (Non-Af Amer) POC Glucose (mg/dL) 267 H (65-110) mg/dL Random Glucose (65-105) mg/dL Calcium (8.6-10.4) mg/dl Phosphorus (2.5-4.5) mg/dL Magnesium (1.6-2.3) mg/dL Total Bilirubin (0.2-1.3) mg/dL AST (14-36) U/L ALT (9-52) U/L Alkaline Phosphatase (38-126) U/L Total Protein (6.3-8.3) g/dL Albumin (3.5-5.0) g/dL Globulin (2.2-3.9) gm/dL Albumin/Globulin Ratio (1.0-2.1) Vancomycin Trough (5.0-10.0) ug/mL Ur L.pneumophila Ag Negative (NEGATIVE) Mycoplasma pneumon IgM Negative (NEGATIVE) Laboratory Results - last 24 hr 02/24/18 02/24/18 02/24/18 10:10 11:20 16:41 WBC RBC Hgb Hct MCV MCH MCHC RDW Plt Count MPV Neut % (Auto) Lymph % (Auto) Elbert % (Auto) Eos % (Auto) Baso % (Auto) Neut # (Auto) Lymph # (Auto) Elbert # (Auto) Eos # (Auto) Baso # (Auto) Total Counted Neutrophils % (Manual) Band Neutrophils % Lymphocytes % (Manual) Reactive Lymphs % Monocytes % (Manual) Eosinophils % (Manual) Basophils % (Manual) Metamyelocytes % Myelocytes % Promyelocytes % Blast Cells % Plasma Cell % (Manual) Nucleated RBC % Hypersegmented Polys Smudge Cells Toxic Granulation Dohle Bodies Wallace Rods Platelet Estimate Plt Clumps, EDTA Large Platelets Giant Platelets RBC Morphology Polychromasia Hypochromasia (manual) Poikilocytosis (manual Basophilic Stippling Anisocytosis (manual) Microcytosis (manual) Macrocytosis (manual) Spherocytes Sickle Cells Target Cells Tear Drop Cells Ovalocytes Stomatocytes Helmet Cells Mckoy-Stayton Bodies Perry Cells Acanthocytes (Spur) Rouleaux Schistocytes Sodium Potassium Chloride Carbon Dioxide Anion Gap BUN Creatinine Est GFR ( Amer) Est GFR (Non-Af Amer) POC Glucose (mg/dL) 267 H 278 H Random Glucose Calcium Phosphorus Magnesium Total Bilirubin AST ALT Alkaline Phosphatase Total Protein Albumin Globulin Albumin/Globulin Ratio Vancomycin Trough Ur L.pneumophila Ag Negative Mycoplasma pneumon IgM Negative 02/24/18 02/25/18 02/25/18 21:14 05:54 05:54 WBC 0.3 L* D RBC 2.76 L Hgb 7.3 L Hct 22.1 L MCV 79.9 L MCH 26.6 L MCHC 33.3 RDW 21.1 H Plt Count 16 L* MPV 10.7 Neut % (Auto) 60.3 Lymph % (Auto) 15.4 L Elbert % (Auto) 24.3 H Eos % (Auto) 0.0 Baso % (Auto) 0.0 Neut # (Auto) 0.2 L Lymph # (Auto) 0.0 L Elbert # (Auto) 0.1 Eos # (Auto) 0.0 Baso # (Auto) 0.0 Total Counted Cancelled Neutrophils % (Manual) Cancelled Band Neutrophils % Cancelled Lymphocytes % (Manual) Cancelled Reactive Lymphs % Cancelled Monocytes % (Manual) Cancelled Eosinophils % (Manual) Cancelled Basophils % (Manual) Cancelled Metamyelocytes % Cancelled Myelocytes % Cancelled Promyelocytes % Cancelled Blast Cells % Cancelled Plasma Cell % (Manual) Cancelled Nucleated RBC % Cancelled Hypersegmented Polys Cancelled Smudge Cells Cancelled Toxic Granulation Cancelled Dohle Bodies Cancelled Wallace Rods Cancelled Platelet Estimate Cancelled Plt Clumps, EDTA Cancelled Large Platelets Cancelled Giant Platelets Cancelled RBC Morphology Cancelled Polychromasia Cancelled Hypochromasia (manual) Cancelled Poikilocytosis (manual Cancelled Basophilic Stippling Cancelled Anisocytosis (manual) Cancelled Microcytosis (manual) Cancelled Macrocytosis (manual) Cancelled Spherocytes Cancelled Sickle Cells Cancelled Target Cells Cancelled Tear Drop Cells Cancelled Ovalocytes Cancelled Stomatocytes Cancelled Helmet Cells Cancelled Mckoy-Stayton Bodies Cancelled Perry Cells Cancelled Acanthocytes (Spur) Cancelled Rouleaux Cancelled Schistocytes Cancelled Sodium 147 Potassium 3.3 L Chloride 108 H Carbon Dioxide 32 H Anion Gap 11 BUN 36 H Creatinine 0.4 L Est GFR ( Amer) > 60 Est GFR (Non-Af Amer) > 60 POC Glucose (mg/dL) 208 H Random Glucose 258 H Calcium 8.4 L Phosphorus 2.8 Magnesium 2.0 Total Bilirubin 1.3 AST 24 ALT 102 H Alkaline Phosphatase 188 H Total Protein 4.4 L Albumin 2.1 L Globulin 2.3 Albumin/Globulin Ratio 0.9 L Vancomycin Trough Ur L.pneumophila Ag Mycoplasma pneumon IgM 02/25/18 02/25/18 05:54 07:25 WBC RBC Hgb Hct MCV MCH MCHC RDW Plt Count MPV Neut % (Auto) Lymph % (Auto) Elbert % (Auto) Eos % (Auto) Baso % (Auto) Neut # (Auto) Lymph # (Auto) Elbert # (Auto) Eos # (Auto) Baso # (Auto) Total Counted Neutrophils % (Manual) Band Neutrophils % Lymphocytes % (Manual) Reactive Lymphs % Monocytes % (Manual) Eosinophils % (Manual) Basophils % (Manual) Metamyelocytes % Myelocytes % Promyelocytes % Blast Cells % Plasma Cell % (Manual) Nucleated RBC % Hypersegmented Polys Smudge Cells Toxic Granulation Dohle Bodies Wallace Rods Platelet Estimate Plt Clumps, EDTA Large Platelets Giant Platelets RBC Morphology Polychromasia Hypochromasia (manual) Poikilocytosis (manual Basophilic Stippling Anisocytosis (manual) Microcytosis (manual) Macrocytosis (manual) Spherocytes Sickle Cells Target Cells Tear Drop Cells Ovalocytes Stomatocytes Helmet Cells Mckoy-Stayton Bodies Tia Cells Acanthocytes (Spur) Rouleaux Schistocytes Sodium Potassium Chloride Carbon Dioxide Anion Gap BUN Creatinine Est GFR ( Amer) Est GFR (Non-Af Amer) POC Glucose (mg/dL) 255 H Random Glucose Calcium Phosphorus Magnesium Total Bilirubin AST ALT Alkaline Phosphatase Total Protein Albumin Globulin Albumin/Globulin Ratio Vancomycin Trough 12.4 H Ur L.pneumophila Ag Mycoplasma pneumon IgM Fingerstick Blood Sugar Results: 255 Review of Systems - Review of Systems Systems not reviewed;Unavailable: Other (Too weak to respond) Critical Care Progress Note - Nutrition Nutrition: Nutrition Category Date Time Status Pureed [Dysphagia/Modified Consistency Diet] [DIET] Diets 02/25/18 Breakfast Active Assessment/Plan - Assessment and Plan (Free Text) Assessment: 72 year old female with history of left breast cancer s/p mastectomy, cervical cancer s/p hysterectomy, newly diagnosed lymphoma, COPD, HTN, DM, anemia sp transfusion. ICU consulted for neutropenic fevers after chemo. Plan: Neuro: Awake, however very weak Patient was later intubated, sedated on Propofol Cardiovascular: Hypotensive currently on Levophed Patient has history of HTN, Hold antihypertensives given current hypotension Norvasc 10mg PO held given hypotension Hydralazine 50mg TID held given hypotension Hydralazine 10mg IVP Q6 held given hypotension Lopessor 25mg PO BID held given hypotension Cardiology Dr. Damon on board Pulmonary Right upper lobe infiltrate 02/24/18 CXR Radiographically worsening coalescing airspace infiltrates right upper lobe and blending with the right hilum. The left-sided patchy infiltrates are similar 02/25/18 CXR Worsening pulmonary edema/ ARDS.Satisfactory position of recently placed endotracheal tube. Remaining support apparatus unchanged. Hx of COPD CT chest Interval worsening bilateral pneumonia affecting primarily the bilateral lower lobes greater than the bilateral upper lobes and minimally involving the middle lobe. Prior right pleural effusion diminished in the interval. Cholelithiasis. Bilateral adrenal hypertrophy without gross mass evident. Mild splenomegaly to 13.6 cm. Small hiatal hernia identified Patient developed respiratory distress, and was intubated on 02/25/18. Sedated on Propofol Duonebs Q6 Robitussin 200mg Q4 PRN Solumedrol 20mg IV Q12 Spiriva 18mcg Q24 Legionella negative mycoplasma negative GI Protonix 40mg IV Renal BUN 36 Cr 0.4 I & Os +120cc Continue to monitor electrolytes, K repleted Heme/Onc Hx of left breast cancer s/p mastectomy Hx of cervical cancer s/p hysterectomy Newly diagnosed lymphoma Anemic H/H 7.3/22.1 Noted to be thrombocytopenic at 16 s/p platelet transfusion yesterday Dr. Krueger consulted, help appreciated Surgery Dr. Garcia on board s/p portacath ID Tmax 100.1 white count 0.3 today Platelets only improved to 16 today Blood cultures prelim positive for GP cocci started on vancomycin 1G Q 12 Cefepime 2g IV Micafungin 100mg IV Dr. Mccollum consulted, help appreciated Endo Hx of DM ISS PPX: On Protonix Case discussed with Dr. Bronson <Rosendo Bronson S - Last Filed: 02/25/18 18:03> CCU Subjective - Physician Review Critical Care Time Spent (in minutes): 45 CCU Objective - Vital Signs / Intake & Output Vital Signs (Last 4 hours): Vital Signs Temp Pulse Resp BP Pulse Ox 02/25/18 17:16 85 28 H 102/53 L 100 02/25/18 17:07 106/52 L 02/25/18 17:02 77 32 H 106/52 L 100 02/25/18 17:00 84 13 100 02/25/18 16:54 81 29 H 96/55 L 100 02/25/18 16:46 70 34 H 65/32 L 100 02/25/18 16:45 76 26 H 67/33 L 100 02/25/18 16:40 84 28 H 67/33 L 02/25/18 16:34 78 19 63/32 L 02/25/18 16:20 90 23 83/24 L 100 02/25/18 16:11 86 31 H 86/42 L 99 02/25/18 16:00 97.3 F L 84 19 100 02/25/18 15:47 84 22 97/59 L 97 02/25/18 15:43 79 16 105/61 100 02/25/18 15:00 91 H 17 87 L 02/25/18 14:58 95 H 21 125/70 88 L Intake and Output (Last 8hrs): Intake & Output 02/25/18 02/25/18 02/25/18 06:59 14:59 22:59 Intake Total 0 700 627.7 Balance 0 700 627.7 Weight 130 lb 3.2 oz Intake: IV 80 Intake, IV Amount 500 547.7 Right Distal Port Port-A- 200 17.7 Cath Right Port-A-Cath 300 530 Oral 0 200 0 Other: # Bowel Movements 1 1 0 - Medications Active Medications: Active Medications Generic Name Dose Route Start Last Admin Trade Name Freq PRN Reason Stop Dose Admin Acetaminophen 650 mg 02/14/18 20:48 02/25/18 14:46 Tylenol 325mg Tab PO 650 mg Q6 PRN Administration pain Albuterol/Ipratropium 3 ml 02/24/18 08:00 02/25/18 07:30 Duoneb 3 Mg/0.5 Mg (3 Ml) Ud INH 3 ml RQ6 MILLIE Administration Amlodipine Besylate 10 mg 02/06/18 09:11 02/25/18 09:56 Norvasc PO 10 mg DAILY MILLIE Administration Guaifenesin 200 mg 02/24/18 10:24 Robitussin PO Q4H PRN Cough and congestion Hydralazine HCl 50 mg 02/06/18 10:00 02/25/18 17:07 Apresoline PO Not Given TID MILLIE Hydralazine HCl 10 mg 02/11/18 00:00 Apresoline IVP Q6H PRN Other Vancomycin/Sodium Chloride 1 gm in 200 mls @ 166.7 mls/hr 02/24/18 10:00 11/07 09:41 Vancomycin 1 Gm/Ns 200 Ml IVPB 03/01/18 10:01 166.7 mls/hr Q12H MILLIE Administration Protocol Cefepime HCl 2 gm in 100 mls @ 200 mls/hr 02/24/18 13:00 02/25/18 12:49 Maxipime Iv 2 Gm Premix IVPB 03/01/18 13:01 200 mls/hr Q8H MILLIE Administration Protocol Micafungin Sodium 100 mg/ 100 mls @ 100 mls/hr 02/24/18 13:00 02/25/18 13:51 Dextrose IV 100 mls/hr Q24H MILLIE Administration Protocol Propofol 1,000 mg in 100 mls @ 1.772 mls/hr 02/25/18 15:35 02/25/18 17:44 Diprivan IV 40 mcg/kg/min .Q24H PRN 14.174 mls/hr TITRATE PER MD ORDER Titration Protocol 5 MCG/KG/MIN Norepinephrine Bitartrate 4 mg 250 mls @ 15 mls/hr 02/25/18 16:40 02/25/18 17 :04 / Sodium Chloride IV 8 mcg/min .[id number] PRN 30 mls/hr TITRATE PER MD ORDER Titration Protocol 4 MCG/MIN Insulin Aspart 0 unit 02/25/18 18:00 02/25/18 17:45 Novolog SC 4 u Q6H [facility] Administration Protocol Methylprednisolone 20 mg 02/25/18 22:00 Solu-Medrol IVP Q12 [facility] Metoprolol Tartrate 25 mg 02/24/18 10:30 02/25/18 17:07 Lopressor PO Not Given BID [facility] Multivitamins/Vitamin C 5 ml 02/24/18 10:15 02/25/18 09:56 Multi-Delyn Liquid PO 5 ml DAILY MILLIE Administration Pantoprazole Sodium 40 mg 02/24/18 10:15 02/25/18 09:56 Protonix Inj IVP 40 mg DAILY MILLIE Administration Simethicone 80 mg 02/17/18 20:31 02/18/18 20:28 Mylicon Chew Tab PO 80 mg Q8 PRN Administration GI distress Tiotropium Duson 18 mcg 01/30/18 08:00 02/25/18 12:11 Spiriva INH Not Given RQ24 MILLIE - Patient Studies Lab Studies: Microbiology Studies 02/25/18 15:46 Gram Stain - Final Sputum Induced 02/23/18 Unknown MRSA Culture (Admit) - Final [facility] Lab Studies 02/25/18 02/25/18 02/25/18 Range/Units 11:47 07:25 05:54 WBC (4.8-10.8) K/uL RBC (3.80-5.20) Mil/uL Hgb (11.0-16.0) g/dL Hct (34.0-47.0) % MCV (81.0-99.0) fL MCH (27.0-31.0) pg MCHC (33.0-37.0) g/dL RDW (11.5-14.5) % Plt Count (130-400) K/uL MPV (7.2-11.7) fL Neut % (Auto) (50.0-75.0) % Lymph % (Auto) (20.0-40.0) % Elbert % (Auto) (0.0-10.0) % Eos % (Auto) (0.0-4.0) % Baso % (Auto) (0.0-2.0) % Neut # (Auto) (1.8-7.0) K/uL Lymph # (Auto) (1.0-4.3) K/uL Elbert # (Auto) (0.0-0.8) K/uL Eos # (Auto) (0.0-0.7) K/uL Baso # (Auto) (0.0-0.2) K/uL Total Counted Neutrophils % (Manual) Band Neutrophils % Lymphocytes % (Manual) Reactive Lymphs % Monocytes % (Manual) Eosinophils % (Manual) Basophils % (Manual) Metamyelocytes % Myelocytes % Promyelocytes % Blast Cells % Plasma Cell % (Manual) Nucleated RBC % Hypersegmented Polys Smudge Cells Toxic Granulation Dohle Bodies Wallace Rods Platelet Estimate Plt Clumps, EDTA Large Platelets Giant Platelets RBC Morphology Polychromasia Hypochromasia (manual) Poikilocytosis (manual Basophilic Stippling Anisocytosis (manual) Microcytosis (manual) Macrocytosis (manual) Spherocytes Sickle Cells Target Cells Tear Drop Cells Ovalocytes Stomatocytes Helmet Cells Mckoy-Stayton Bodies Perry Cells Acanthocytes (Spur) Rouleaux Schistocytes Sodium (132-148) mmol/L Potassium (3.6-5.2) mmol/L Chloride (98-107) mmol/L Carbon Dioxide (22-30) mmol/L Anion Gap (10-20) BUN (7-17) mg/dL Creatinine (0.7-1.2) mg/dL Est GFR ( Amer) Est GFR (Non-Af Amer) POC Glucose (mg/dL) 328 H 255 H (65-110) mg/dL Random Glucose (65-105) mg/dL Calcium (8.6-10.4) mg/dl Phosphorus (2.5-4.5) mg/dL Magnesium (1.6-2.3) mg/dL Total Bilirubin (0.2-1.3) mg/dL AST (14-36) U/L ALT (9-52) U/L Alkaline Phosphatase (38-126) U/L Total Protein (6.3-8.3) g/dL Albumin (3.5-5.0) g/dL Globulin (2.2-3.9) gm/dL Albumin/Globulin Ratio (1.0-2.1) Vancomycin Trough 12.4 H (5.0-10.0) ug/mL 02/25/18 02/25/18 02/24/18 Range/Units 05:54 05:54 21:14 WBC 0.3 L* D (4.8-10.8) K/uL RBC 2.76 L (3.80-5.20) Mil/uL Hgb 7.3 L (11.0-16.0) g/dL Hct 22.1 L (34.0-47.0) % MCV 79.9 L (81.0-99.0) fL MCH 26.6 L (27.0-31.0) pg MCHC 33.3 (33.0-37.0) g/dL RDW 21.1 H (11.5-14.5) % Plt Count 16 L* (130-400) K/uL MPV 10.7 (7.2-11.7) fL Neut % (Auto) 60.3 (50.0-75.0) % Lymph % (Auto) 15.4 L (20.0-40.0) % Elbert % (Auto) 24.3 H (0.0-10.0) % Eos % (Auto) 0.0 (0.0-4.0) % Baso % (Auto) 0.0 (0.0-2.0) % Neut # (Auto) 0.2 L (1.8-7.0) K/uL Lymph # (Auto) 0.0 L (1.0-4.3) K/uL Elbert # (Auto) 0.1 (0.0-0.8) K/uL Eos # (Auto) 0.0 (0.0-0.7) K/uL Baso # (Auto) 0.0 (0.0-0.2) K/uL Total Counted Cancelled Neutrophils % (Manual) Cancelled Band Neutrophils % Cancelled Lymphocytes % (Manual) Cancelled Reactive Lymphs % Cancelled Monocytes % (Manual) Cancelled Eosinophils % (Manual) Cancelled Basophils % (Manual) Cancelled Metamyelocytes % Cancelled Myelocytes % Cancelled Promyelocytes % Cancelled Blast Cells % Cancelled Plasma Cell % (Manual) Cancelled Nucleated RBC % Cancelled Hypersegmented Polys Cancelled Smudge Cells Cancelled Toxic Granulation Cancelled Dohle Bodies Cancelled [place] Rods Cancelled Platelet Estimate Cancelled Plt Clumps, EDTA Cancelled Large Platelets Cancelled Giant Platelets Cancelled RBC Morphology Cancelled Polychromasia Cancelled Hypochromasia (manual) Cancelled Poikilocytosis (manual Cancelled Basophilic Stippling Cancelled Anisocytosis (manual) Cancelled Microcytosis (manual) Cancelled Macrocytosis (manual) Cancelled Spherocytes Cancelled Sickle Cells Cancelled Target Cells Cancelled Tear Drop Cells Cancelled Ovalocytes Cancelled Stomatocytes Cancelled Helmet Cells Cancelled Mckoy-Stayton Bodies Cancelled Perry Cells Cancelled Acanthocytes (Spur) Cancelled Rouleaux Cancelled Schistocytes Cancelled Sodium 147 (132-148) mmol/L Potassium 3.3 L (3.6-5.2) mmol/L Chloride 108 H (98-107) mmol/L Carbon Dioxide 32 H (22-30) mmol/L Anion Gap 11 (10-20) BUN 36 H (7-17) mg/dL Creatinine 0.4 L (0.7-1.2) mg/dL Est GFR ( Amer) > 60 Est GFR (Non-Af Amer) > 60 POC Glucose (mg/dL) 208 H (65-110) mg/dL Random Glucose 258 H (65-105) mg/dL Calcium 8.4 L (8.6-10.4) mg/dl Phosphorus 2.8 (2.5-4.5) mg/dL Magnesium 2.0 (1.6-2.3) mg/dL Total Bilirubin 1.3 (0.2-1.3) mg/dL AST 24 (14-36) U/L ALT 102 H (9-52) U/L Alkaline Phosphatase 188 H (38-126) U/L Total Protein 4.4 L (6.3-8.3) g/dL Albumin 2.1 L (3.5-5.0) g/dL Globulin 2.3 (2.2-3.9) gm/dL Albumin/Globulin Ratio 0.9 L (1.0-2.1) Vancomycin Trough (5.0-10.0) ug/mL Laboratory Results - last 24 hr 02/24/18 02/25/18 02/25/18 21:14 05:54 05:54 WBC 0.3 L* D RBC 2.76 L Hgb 7.3 L Hct 22.1 L MCV 79.9 L MCH 26.6 L MCHC 33.3 RDW 21.1 H Plt Count 16 L* MPV 10.7 Neut % (Auto) 60.3 Lymph % (Auto) 15.4 L Elbert % (Auto) 24.3 H Eos % (Auto) 0.0 Baso % (Auto) 0.0 Neut # (Auto) 0.2 L Lymph # (Auto) 0.0 L Elbert # (Auto) 0.1 Eos # (Auto) 0.0 Baso # (Auto) 0.0 Total Counted Cancelled Neutrophils % (Manual) Cancelled Band Neutrophils % Cancelled Lymphocytes % (Manual) Cancelled Reactive Lymphs % Cancelled Monocytes % (Manual) Cancelled Eosinophils % (Manual) Cancelled Basophils % (Manual) Cancelled Metamyelocytes % Cancelled Myelocytes % Cancelled Promyelocytes % Cancelled Blast Cells % Cancelled Plasma Cell % (Manual) Cancelled Nucleated RBC % Cancelled Hypersegmented Polys Cancelled Smudge Cells Cancelled Toxic Granulation Cancelled Dohle Bodies Cancelled Wallace Rods Cancelled Platelet Estimate Cancelled Plt Clumps, EDTA Cancelled Large Platelets Cancelled Giant Platelets Cancelled RBC Morphology Cancelled Polychromasia Cancelled Hypochromasia (manual) Cancelled Poikilocytosis (manual Cancelled Basophilic Stippling Cancelled Anisocytosis (manual) Cancelled Microcytosis (manual) Cancelled Macrocytosis (manual) Cancelled Spherocytes Cancelled Sickle Cells Cancelled Target Cells Cancelled Tear Drop Cells Cancelled Ovalocytes Cancelled Stomatocytes Cancelled Helmet Cells Cancelled Mckoy-Stayton Bodies Cancelled Tia Cells Cancelled Acanthocytes (Spur) Cancelled Rouleaux Cancelled Schistocytes Cancelled Sodium 147 Potassium 3.3 L Chloride 108 H Carbon Dioxide 32 H Anion Gap 11 BUN 36 H Creatinine 0.4 L Est GFR ( Amer) > 60 Est GFR (Non-Af Amer) > 60 POC Glucose (mg/dL) 208 H Random Glucose 258 H Calcium 8.4 L Phosphorus 2.8 Magnesium 2.0 Total Bilirubin 1.3 AST 24 ALT 102 H Alkaline Phosphatase 188 H Total Protein 4.4 L Albumin 2.1 L Globulin 2.3 Albumin/Globulin Ratio 0.9 L Vancomycin Trough 02/25/18 02/25/18 02/25/18 05:54 07:25 11:47 WBC RBC Hgb Hct MCV MCH MCHC RDW Plt Count MPV Neut % (Auto) Lymph % (Auto) Elbert % (Auto) Eos % (Auto) Baso % (Auto) Neut # (Auto) Lymph # (Auto) Elbert # (Auto) Eos # (Auto) Baso # (Auto) Total Counted Neutrophils % (Manual) Band Neutrophils % Lymphocytes % (Manual) Reactive Lymphs % Monocytes % (Manual) Eosinophils % (Manual) Basophils % (Manual) Metamyelocytes % Myelocytes % Promyelocytes % Blast Cells % Plasma Cell % (Manual) Nucleated RBC % Hypersegmented Polys Smudge Cells Toxic Granulation Dohle Bodies Wallace Rods Platelet Estimate Plt Clumps, EDTA Large Platelets Giant Platelets RBC Morphology Polychromasia Hypochromasia (manual) Poikilocytosis (manual Basophilic Stippling Anisocytosis (manual) Microcytosis (manual) Macrocytosis (manual) Spherocytes Sickle Cells Target Cells Tear Drop Cells Ovalocytes Stomatocytes Helmet Cells Mckoy-Stayton Bodies Tia Cells Acanthocytes (Spur) Rouleaux Schistocytes Sodium Potassium Chloride Carbon Dioxide Anion Gap BUN Creatinine Est GFR ( Amer) Est GFR (Non-Af Amer) POC Glucose (mg/dL) 255 H 328 H Random Glucose Calcium Phosphorus Magnesium Total Bilirubin AST ALT Alkaline Phosphatase Total Protein Albumin Globulin Albumin/Globulin Ratio Vancomycin Trough 12.4 H Critical Care Progress Note - Nutrition Nutrition: Nutrition Category Date Time Status Pureed [Dysphagia/Modified Consistency Diet] [DIET] Diets 02/25/18 Breakfast Active Attending/Attestation - Attestation I have personally seen and examined this patient.: Yes I have fully participated in the care of the patient.: Yes I have reviewed all pertinent clinical information: Yes Notes (Text): 02/25/18 18:01 patient seen and examined in the intensive care unit. Patient was intubated for hypoxemia and respiratory distress Worsening bilateral infiltrate IV sedation Continue antibiotics Bronchoscopy and bronchoalveolar lavage Transfuse platelets and packed RBCs as needed Case discussed with family at length Prognosis poor
[2018-02-25] MEDS: Tiotropium 18 mcg Cap For Inhalation INH SCH (12:11)
[2018-02-25] MEDS: MethylPREDNISolone 40 mg Vial IVP SCH ×2 (12:27→22:38)
[2018-02-25] MEDS: Micafungin 100 MG in Dextrose 5% In Water 100 ML IV SCH (13:51)
[2018-02-25] MEDS: Propofol 10 mg/ml 1,000 MG/100 ML VIAL IV PRN ×2 (15:49→22:41)
[2018-02-25] MEDS ORDERED: Sodium Chloride 0.9% 500 ML IV ONE (16:15)
--- NOTE | 2018-02-25 16:59 | RAD ---
Date of service: 02/25/2018 HISTORY: Post intubation. COMPARISON: February 24, 2018. Multiple serial examinations preceding the most recent study: FINDINGS: LUNGS: Worsening pulmonary edema. PLEURA: No significant pleural effusion identified, no pneumothorax apparent. CARDIOVASCULAR: Normal. OSSEOUS STRUCTURES: No significant abnormalities. VISUALIZED UPPER ABDOMEN: Normal. OTHER FINDINGS: Satisfactory position recently placed endotracheal tube. Stable location of vascular and nasogastric apparatus. IMPRESSION: Worsening pulmonary edema/ ARDS. Satisfactory position of recently placed endotracheal tube. Remaining support apparatus unchanged.
--- NOTE | 2018-02-25 18:04 | PCM.PROC ---
Procedures Attestation:: I certify that I have explained the specified Operation(s) or Procedure(s), risks, benefits and reasonable alternatives to the Patient and/or other person responsible. The opportunity was given to ask questions and all questions answered - Intubation Time Out Performed: Yes Sedative: Etomidate Mg Given: 20 Laryngoscope: Elizabeth ET Tube Size: 7.5 ET Tube Uncuffed: No ET Tube Secured at Depth: 21 ET Tube Secured Locarion: Lips ET Tube Placement Confirmation: Visualized Passing Through Cords, Breath Sounds Equal Bilaterally, No Breath Sounds Over Epigastrum, Confirmation w/Capnometry Patient Tolerated Procedure: Well Procedure Immediate Complications: None
[2018-02-25 18:33] LABS: ARTERIAL BLOOD GAS HCO3 30.1 mmol/L (21-28); ARTERIAL BLOOD GAS HEMOGLOBIN 7.9 g/dL (11.7-17.4); ARTERIAL BLOOD GAS O2 SAT 99.3 % (95-98); ARTERIAL BLOOD GAS PCO2 40 mm/Hg (35-45); ARTERIAL BLOOD GAS PH 7.49 (7.35-7.45); ARTERIAL BLOOD GAS PO2 212 mm/Hg (80-100); ARTERIAL BLOOD GAS TCO2 31.7 mmol/L (22-28)
[2018-02-25 18:51] LABS: HEMOGLOBIN 7.4 g/dL (11.0-16.0); MEAN CELL VOLUME 79.6 fL (81.0-99.0); MEAN CORPUSCULAR HEMOGLOBIN 25.8 pg (27.0-31.0); MEAN CORPUSCULAR HGB CONC 32.4 g/dL (33.0-37.0); MEAN PLATELET VOLUME 10.9 fL (7.2-11.7); RBC 2.88 Mil/uL (3.80-5.20); RED CELL DISTRIBUTION WIDTH 21.1 % (11.5-14.5)
[2018-02-25 18:56] LABS: WHITE BLOOD COUNT 0.9 K/uL (4.8-10.8)
[2018-02-25] MEDS: Meropenem 1 GM in Sodium Chloride 0.9% 100 ML IVPB SCH (20:00)
--- NOTE | 2018-02-25 21:57 | CP.PCM.PN ---
Subjective - Date & Time of Evaluation Date of Evaluation: 02/25/18 Time of Evaluation: 12:30 - Subjective Subjective: clinically same Objective - Vital Signs/Intake and Output Vital Signs (last 24 hours): Temp Pulse Resp BP Pulse Ox 97.3 F L 82 20 134/68 98 02/25/18 16:00 02/25/18 21:24 02/25/18 21:24 02/25/18 21:24 02/25/18 21:24 Intake and Output: 02/25/18 02/26/18 18:59 06:59 Intake Total 1371.9 44.2 Balance 1371.9 44.2 - Medications Medications: Current Medications Acetaminophen (Tylenol 325mg Tab) 650 mg PO Q6 PRN PRN Reason: pain Last Admin: 02/25/18 14:46 Dose: 650 mg Albuterol/Ipratropium (Duoneb 3 Mg/0.5 Mg (3 Ml) Ud) 3 ml INH RQ6 [facility] Last Admin: 02/25/18 20:57 Dose: 3 ml Amlodipine Besylate (Norvasc) 10 mg PO DAILY [facility] Last Admin: 02/25/18 09:56 Dose: 10 mg Guaifenesin (Robitussin) 200 mg PO Q4H PRN PRN Reason: Cough and congestion Hydralazine HCl (Apresoline) 50 mg PO TID [facility] Last Admin: 02/25/18 17:07 Dose: Not Given Hydralazine HCl (Apresoline) 10 mg IVP Q6H PRN PRN Reason: Other Vancomycin/Sodium Chloride (Vancomycin 1 Gm/Ns 200 Ml) 1 gm in 200 mls @ 166.7 mls/hr IVPB Q12H [facility]ILLIE PRN Reason: Protocol Stop: 03/01/18 10:01 Last Admin: 02/25/18 09:41 Dose: 166.7 mls/hr Micafungin Sodium 100 mg/ (Dextrose) 100 mls @ 100 mls/hr IV Q24H MILLIE PRN Reason: Protocol Last Admin: 02/25/18 13:51 Dose: 100 mls/hr Propofol (Diprivan) 1,000 mg in 100 mls @ 1.772 mls/hr IV .Q24H PRN; Protocol; 5 MCG/KG/MIN PRN Reason: TITRATE PER MD ORDER Last Titration: 02/25/18 17:44 Dose: 40 mcg/kg/min, 14.174 mls/hr Norepinephrine Bitartrate 4 mg (/ Sodium Chloride) 250 mls @ 15 mls/hr IV .[id number] PRN; Protocol; 4 MCG/MIN PRN Reason: TITRATE PER MD ORDER Last Titration: 02/25/18 17:04 Dose: 8 mcg/min, 30 mls/hr Meropenem 1 gm/ Sodium (Chloride) 100 mls @ 100 mls/hr IVPB Q8H MILLIE PRN Reason: Protocol Insulin Aspart (Novolog) 0 unit SC Q6H MILLIE PRN Reason: Protocol Last Admin: 02/25/18 17:45 Dose: 4 u Methylprednisolone (Solu-Medrol) 20 mg IVP Q12 [facility] Metoprolol Tartrate (Lopressor) 25 mg PO BID [facility] Last Admin: 02/25/18 17:07 Dose: Not Given Multivitamins/Vitamin C (Multi-Delyn Liquid) 5 ml PO DAILY [facility] Last Admin: 02/25/18 09:56 Dose: 5 ml Pantoprazole Sodium (Protonix Inj) 40 mg IVP DAILY [facility] Last Admin: 02/25/18 09:56 Dose: 40 mg Simethicone (Mylicon Chew Tab) 80 mg PO Q8 PRN PRN Reason: GI distress Last Admin: 02/18/18 20:28 Dose: 80 mg Tiotropium Metz (Spiriva) 18 mcg INH RQ24 [facility] Last Admin: 02/25/18 12:11 Dose: Not Given - Labs Labs: 02/25/18 18:42 02/25/18 05:54 PT 15.9 SECONDS (9.7-12.2) H 01/28/18 10:14 INR 1.5 01/28/18 10:14 APTT 30 SECONDS (21-34) 01/28/18 10:14 - Constitutional Appears: Well - Head Exam Head Exam: ATRAUMATIC, NORMAL INSPECTION, NORMOCEPHALIC - Eye Exam Eye Exam: EOMI, Normal appearance, PERRL Pupil Exam: NORMAL ACCOMODATION, PERRL - ENT Exam ENT Exam: Mucous Membranes Moist, Normal Exam - Neck Exam Neck Exam: Full ROM, Normal Inspection. 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
--- NOTE | 2018-02-25 23:08 | CP.PCM.PCO ---
Physician Communication Note - Physician Communication Note Physician Communication Note: Hemocult +ve with blood per rectum. INR/PTT, Transfuse one unit of Platelets
[2018-02-25 23:56] LABS: INR 1.4; PROTHROMBIN TIME 15.6 SECONDS (9.7-12.2)
[2018-02-26] MEDS: (Novolog) Insulin Aspart, Recombinant 100 u/ml 10 ml vial SC SCH ×4 (00:04→18:18)
[2018-02-26] MEDS: Albuterol-Ipratrop 3 mg / 0.5 (3 ml) UD INH SCH ×3 (01:24→20:22)
[2018-02-26] MEDS: Meropenem 1 GM in Sodium Chloride 0.9% 100 ML IVPB SCH ×3 (03:32→20:00)
[2018-02-26 05:59] LABS: ABG ALLEN TEST POS; ARTERIAL BLOOD GAS HCO3 27.8 mmol/L (21-28); ARTERIAL BLOOD GAS PCO2 44 mm/Hg (35-45); ARTERIAL BLOOD GAS PH 7.42 (7.35-7.45); ARTERIAL BLOOD GAS PO2 106 mm/Hg (80-100); ARTERIAL BLOOD GAS TCO2 29.9 mmol/L (22-28)
[2018-02-26 06:16] LABS: HEMOGLOBIN 8.2 g/dL (11.0-16.0); MEAN CELL VOLUME 81.1 fL (81.0-99.0); MEAN CORPUSCULAR HEMOGLOBIN 26.8 pg (27.0-31.0); MEAN PLATELET VOLUME 11.2 fL (7.2-11.7); RBC 3.04 Mil/uL (3.80-5.20); RED CELL DISTRIBUTION WIDTH 21.4 % (11.5-14.5)
[2018-02-26 06:22] LABS: PLATELET COUNT 18 K/uL (130-400); WHITE BLOOD COUNT 1.4 K/uL (4.8-10.8)
[2018-02-26 06:26] LABS: ALB/GLOB RATIO 0.9 (1.0-2.1); ALBUMIN 2.1 g/dL (3.5-5.0); ALT/SGPT 94 U/L (9-52); AST/SGOT 27 U/L (14-36); BLOOD UREA NITROGEN 41 mg/dL (7-17); CALCIUM 8.1 mg/dl (8.6-10.4); GFR NON-AFRICAN AMERICAN > 60
[2018-02-26] MEDS: Propofol 10 mg/ml 1,000 MG/100 ML VIAL IV PRN ×3 (06:31→20:05)
[2018-02-26] MEDS: Tiotropium 18 mcg Cap For Inhalation INH SCH (07:08)
[2018-02-26] MEDS: Multiple Vitamins Oral Solution PO SCH (09:45)
[2018-02-26] MEDS: Vancomycin 1 gm/NS 200 ml 1 GM/200 ML BAG IVPB SCH ×2 (09:46→21:43)
[2018-02-26] MEDS: MethylPREDNISolone 40 mg Vial IVP SCH ×2 (09:46→21:44)
[2018-02-26 09:50] LABS: BASO % 0.8 % (0.0-2.0); LYMPH % 2.8 % (20.0-40.0); MONO % 1.7 % (0.0-10.0); NEUT % 94.7 % (50.0-75.0)
[2018-02-26 09:51] LABS: LYMPH # 0.1 K/uL (1.0-4.3); NEUT # 1.3 K/uL (1.8-7.0)
[2018-02-26 10:03] LABS: BANDS 20 % (0-2); LYMPHOCYTE 4 % (20-40); MONOCYTE 1 % (0-10); MYELOCYTE 1 % (0-0); NEUTROPHIL 74 % (50-75); TOTAL CELLS COUNTED 100
[2018-02-26 10:04] LABS: ANISOCYTOSIS MODERATE; PLATELET ESTIMATE MARKEDLY DECREASED (NORMAL)
[2018-02-26 10:05] LABS: HYPOCHROMIC SLIGHT; TARGET CELLS SLIGHT
--- NOTE | 2018-02-26 11:39 | RAD ---
Date of service: 02/26/2018 PROCEDURE: CHEST RADIOGRAPH, 1 VIEW HISTORY: Pt vented COMPARISON: 02/25/2018 FINDINGS: LUNGS: Mild bilateral patchy coalescent airspace opacity similar. Coalescent infiltrates-coalescent pulmonary are all considerations. . No worsening dense consolidation perceived. PLEURA: No pneumothorax or pleural fluid seen. CARDIOVASCULAR: Normal heart size. Pulmonary venous congestion/interstitial pulmonary edema suspect -similar. Port-A-Cath tip in superior vena cava. No pneumothorax. OSSEOUS STRUCTURES: No significant abnormalities. VISUALIZED UPPER ABDOMEN: NG tube tip in stomach- Endotracheal tube approximately 4 cm from meagan. OTHER FINDINGS: None. IMPRESSION: Bilateral coalescent airspace opacities infiltrates and/or pulmonary edema/ ARDS are all considerations/compatible with this. No significant change regarding this appearance noted. Other findings as above.
[2018-02-26 11:44] LABS: BASO % 0.4 % (0.0-2.0); HEMOGLOBIN 7.4 g/dL (11.0-16.0); LYMPH % 2.8 % (20.0-40.0); MEAN CELL VOLUME 80.2 fL (81.0-99.0); MEAN CORPUSCULAR HEMOGLOBIN 26.4 pg (27.0-31.0); MONO % 0.6 % (0.0-10.0); NEUT # 1.3 K/uL (1.8-7.0); NEUT % 96.2 % (50.0-75.0); NRBC % 1.4 % (0.0-2.0); RBC 2.78 Mil/uL (3.80-5.20); RED CELL DISTRIBUTION WIDTH 21.6 % (11.5-14.5)
[2018-02-26 11:52] LABS: WHITE BLOOD COUNT 1.4 K/uL (4.8-10.8)
[2018-02-26 11:53] LABS: PLATELET COUNT 25 K/uL (130-400)
[2018-02-26 12:20] LABS: BANDS 10 % (0-2); LYMPHOCYTE 4 % (20-40); MONOCYTE 4 % (0-10); NEUTROPHIL 82 % (50-75); TOTAL CELLS COUNTED 50
[2018-02-26 12:21] LABS: ANISOCYTOSIS SLIGHT; HYPOCHROMIC SLIGHT; OVALOCYTES SLIGHT; PLATELET ESTIMATE DECREASED (NORMAL); POIKILOCYTOSIS SLIGHT
[2018-02-26 12:22] LABS: TARGET CELLS SLIGHT
[2018-02-26] MEDS: Micafungin 100 MG in Dextrose 5% In Water 100 ML IV SCH (13:41)
--- NOTE | 2018-02-26 14:46 | CP.CCUPN ---
<Nickolas Tyler - Last Filed: 02/26/18 17:09> CCU Subjective - Physician Review Subjective (Free Text): ICU Progress note Patient seen and examined at bedside. Patient is intubated and unable to provide history. 02/26/18 17:09 CCU Objective - Vital Signs / Intake & Output Intake and Output (Last 8hrs): Intake & Output 02/25/18 02/26/18 02/26/18 22:59 06:59 14:59 Intake Total 1295.9 1472.8 960.6 Balance 1295.9 1472.8 960.6 Weight 136 lb 8 oz Intake: IV 160 540 395 Intake, IV Amount 1135.9 632.8 166.6 Right Distal Port Port-A- 77.9 84.8 10.6 Cath Right Forearm 300 100 Right Hand 100 Right Port-A-Cath 758 448 56 Oral 0 Blood Product 300 299 Apheresis Plts Acda Lr 0 299 Irr 2nd Unit [id number] Other 100 Apheresis Plts Acda Lr 100 Irr 2nd Unit [id number] Other: # Voids Urine, Voided 0 # Bowel Movements 1 1 0 - Physical Exam Head: Positive for: Atraumatic, Normocephalic Mouth: Positive for: Moist Mucous Membranes, Other (Intubated) Respiratory/Chest: Positive for: Decreased Breath Sounds Cardiovascular: Positive for: Normal S1, S2, Tachycardic, Other (portacath R chest) Abdomen: Positive for: Normal Bowel Sounds. Negative for: Tenderness, Distention, Peritoneal Signs Upper Extremity: Positive for: NORMAL PULSES (radial pulses ) Lower Extremity: Positive for: Other (scds in place). Negative for: Edema Skin: Positive for: Warm, Dry - Medications Active Medications: Active Medications Generic Name Dose Route Start Last Admin Trade Name Freq PRN Reason Stop Dose Admin Acetaminophen 650 mg 02/14/18 20:48 02/25/18 14:46 Tylenol 325mg Tab PO 650 mg Q6 PRN Administration pain Albuterol/Ipratropium 3 ml 02/24/18 08:00 02/26/18 07:08 Duoneb 3 Mg/0.5 Mg (3 Ml) Ud INH 3 ml RQ6 MILLIE Administration Hydralazine HCl 50 mg 02/06/18 10:00 02/26/18 13:40 Apresoline PO Not Given TID MILLIE Hydralazine HCl 10 mg 02/11/18 00:00 Apresoline IVP Q6H PRN Other Vancomycin/Sodium Chloride 1 gm in 200 mls @ 166.7 mls/hr 02/24/18 10:00 12/08 09:46 Vancomycin 1 Gm/Ns 200 Ml IVPB 03/01/18 10:01 166.7 mls/hr Q12H MILLIE Administration Protocol Micafungin Sodium 100 mg/ 100 mls @ 100 mls/hr 02/24/18 13:00 02/26/18 13:41 Dextrose IV 100 mls/hr Q24H MILLIE Administration Protocol Propofol 1,000 mg in 100 mls @ 1.772 mls/hr 02/25/18 15:35 02/26/18 13:42 Diprivan IV 50 mcg/kg/min .Q24H PRN 17.717 mls/hr TITRATE PER MD ORDER Administration Protocol 5 MCG/KG/MIN Norepinephrine Bitartrate 4 mg 250 mls @ 15 mls/hr 02/25/18 16:40 02/26/18 11 :08 / Sodium Chloride IV 20 mcg/min .[id number] PRN 75 mls/hr TITRATE PER MD ORDER Titration Protocol 4 MCG/MIN Meropenem 1 gm/ Sodium 100 mls @ 100 mls/hr 02/25/18 20:00 02/26/18 11:42 Chloride IVPB 100 mls/hr Q8H MILLIE Administration Protocol Vasopressin 40 units/ Sodium 40 mls @ 0.6 mls/hr 02/26/18 11:15 Chloride IV .Q24H MILLIE Protocol 0.01 UNITS/MIN Insulin Aspart 0 unit 02/25/18 18:00 02/26/18 11:43 Novolog SC Not Given Q6H MILLIE Protocol Lorazepam 1 mg 02/26/18 11:01 02/26/18 11:42 Ativan IVP 1 mg Q4H PRN Administration Agitation Methylprednisolone 20 mg 02/25/18 22:00 02/26/18 09:46 Solu-Medrol IVP 20 mg Q12 MILLIE Administration Multivitamins/Vitamin C 5 ml 02/24/18 10:15 02/26/18 09:45 Multi-Delyn Liquid PO 5 ml DAILY MILLIE Administration Pantoprazole Sodium 40 mg 02/27/18 10:00 Protonix Susp PO DAILY MILLIE Simethicone 80 mg 02/17/18 20:31 02/18/18 20:28 Mylicon Chew Tab PO 80 mg Q8 PRN Administration GI distress Tiotropium Ava 18 mcg 01/30/18 08:00 02/26/18 07:08 Spiriva INH 18 mcg RQ24 MILLIE Administration - Patient Studies Lab Studies: Microbiology Studies 02/25/18 05:55 Blood Culture - Preliminary Blood-Thru Central Line NO GROWTH AFTER 24 HOURS 02/25/18 05:55 Blood Culture - Preliminary Blood-Thru Central Line NO GROWTH AFTER 24 HOURS 02/25/18 15:46 Gram Stain - Final Sputum Induced 02/23/18 Unknown MRSA Culture (Admit) - Final [facility] Lab Studies 02/26/18 02/26/18 02/26/18 Range/Units 11:38 11:32 05:51 WBC 1.4 L* 1.4 L* D (4.8-10.8) K/uL RBC 2.78 L 3.04 L (3.80-5.20) Mil/uL Hgb 7.4 L 8.2 L (11.0-16.0) g/dL Hct 22.3 L 24.7 L (34.0-47.0) % MCV 80.2 L 81.1 (81.0-99.0) fL MCH 26.4 L 26.8 L (27.0-31.0) pg MCHC 33.0 33.0 (33.0-37.0) g/dL RDW 21.6 H 21.4 H (11.5-14.5) % Plt Count 25 L* 18 L* (130-400) K/uL MPV 10.0 11.2 (7.2-11.7) fL Neut % (Auto) 96.2 H 94.7 H (50.0-75.0) % Lymph % (Auto) 2.8 L 2.8 L (20.0-40.0) % [place] % (Auto) 0.6 1.7 (0.0-10.0) % Eos % (Auto) 0.0 0.0 (0.0-4.0) % Baso % (Auto) 0.4 0.8 (0.0-2.0) % Neut # (Auto) 1.3 L 1.3 L (1.8-7.0) K/uL Lymph # (Auto) 0.0 L 0.1 L (1.0-4.3) K/uL [place] # (Auto) 0.0 0.0 (0.0-0.8) K/uL Eos # (Auto) 0.0 0.0 (0.0-0.7) K/uL Baso # (Auto) 0.0 0.0 (0.0-0.2) K/uL Neutrophils % (Manual) 82 H 74 (50-75) % Band Neutrophils % 10 H 20 H* (0-2) % Lymphocytes % (Manual) 4 L 4 L (20-40) % Monocytes % (Manual) 4 1 (0-10) % Myelocytes % 1 H (0-0) % Platelet Estimate Decreased L Markedly decreased L (NORMAL) Hypochromasia (manual) Slight Slight Poikilocytosis (manual Slight Basophilic Stippling Slight Anisocytosis (manual) Slight Moderate Target Cells Slight Slight Ovalocytes Slight PT (9.7-12.2) SECONDS INR APTT (21-34) SECONDS Puncture Site pCO2 (35-45) mm/Hg pO2 (80-100) mm/Hg HCO3 (21-28) mmol/L ABG pH (7.35-7.45) ABG Total CO2 (22-28) mmol/L ABG O2 Saturation (95-98) % ABG Base Excess (-2.0-3.0) mmol/L ABG Hemoglobin (11.7-17.4) g/dL ABG Carboxyhemoglobin (0.5-1.5) % POC ABG HHb (Measured) (0.0-5.0) % ABG Methemoglobin (0.0-3.0) % [place] Test A-a O2 Difference mm/Hg Respiratory Index Hgb O2 Saturation (95.0-98.0) % Vent Mode Mechanical Rate FiO2 % Tidal Volume PEEP Sodium (132-148) mmol/L Potassium (3.6-5.2) mmol/L Chloride (98-107) mmol/L Carbon Dioxide (22-30) mmol/L Anion Gap (10-20) BUN (7-17) mg/dL Creatinine (0.7-1.2) mg/dL Est GFR ( Amer) Est GFR (Non-Af Amer) POC Glucose (mg/dL) 198 H (65-110) mg/dL Random Glucose (65-105) mg/dL Calcium (8.6-10.4) mg/dl Phosphorus (2.5-4.5) mg/dL Magnesium (1.6-2.3) mg/dL Total Bilirubin (0.2-1.3) mg/dL AST (14-36) U/L ALT (9-52) U/L Alkaline Phosphatase (38-126) U/L Total Protein (6.3-8.3) g/dL Albumin (3.5-5.0) g/dL Globulin (2.2-3.9) gm/dL Albumin/Globulin Ratio (1.0-2.1) Stool Occult Blood (NEGATIVE) Blood Type Antibody Screen 02/26/18 02/26/18 02/26/18 Range/Units 05:51 05:26 05:15 WBC (4.8-10.8) K/uL RBC (3.80-5.20) Mil/uL Hgb (11.0-16.0) g/dL Hct (34.0-47.0) % MCV (81.0-99.0) fL MCH (27.0-31.0) pg MCHC (33.0-37.0) g/dL RDW (11.5-14.5) % Plt Count (130-400) K/uL MPV (7.2-11.7) fL Neut % (Auto) (50.0-75.0) % Lymph % (Auto) (20.0-40.0) % [place] % (Auto) (0.0-10.0) % Eos % (Auto) (0.0-4.0) % Baso % (Auto) (0.0-2.0) % Neut # (Auto) (1.8-7.0) K/uL Lymph # (Auto) (1.0-4.3) K/uL [place] # (Auto) (0.0-0.8) K/uL Eos # (Auto) (0.0-0.7) K/uL Baso # (Auto) (0.0-0.2) K/uL Neutrophils % (Manual) (50-75) % Band Neutrophils % (0-2) % Lymphocytes % (Manual) (20-40) % Monocytes % (Manual) (0-10) % Myelocytes % (0-0) % Platelet Estimate (NORMAL) Hypochromasia (manual) Poikilocytosis (manual Basophilic Stippling Anisocytosis (manual) Target Cells Ovalocytes PT (9.7-12.2) SECONDS INR APTT (21-34) SECONDS Puncture Site R rad pCO2 44 (35-45) mm/Hg pO2 106 H (80-100) mm/Hg HCO3 27.8 (21-28) mmol/L ABG pH 7.42 (7.35-7.45) ABG Total CO2 29.9 H (22-28) mmol/L ABG O2 Saturation 99.0 H (95-98) % ABG Base Excess 3.6 H (-2.0-3.0) mmol/L ABG Hemoglobin 8.0 L (11.7-17.4) g/dL ABG Carboxyhemoglobin 1.0 (0.5-1.5) % POC ABG HHb (Measured) 1.0 (0.0-5.0) % ABG Methemoglobin 1.0 (0.0-3.0) % Chepe Test Pos A-a O2 Difference 338.0 mm/Hg Respiratory Index 3.2 Hgb O2 Saturation 97.0 (95.0-98.0) % Vent Mode Prvc Mechanical Rate 20 FiO2 70.0 % Tidal Volume 400 PEEP 5 Sodium 147 (132-148) mmol/L Potassium 4.3 (3.6-5.2) mmol/L Chloride 112 H (98-107) mmol/L Carbon Dioxide 29 (22-30) mmol/L Anion Gap 11 (10-20) BUN 41 H (7-17) mg/dL Creatinine 0.6 L (0.7-1.2) mg/dL Est GFR ( Amer) > 60 Est GFR (Non-Af Amer) > 60 POC Glucose (mg/dL) 253 H (65-110) mg/dL Random Glucose 225 H (65-105) mg/dL Calcium 8.1 L (8.6-10.4) mg/dl Phosphorus 3.3 (2.5-4.5) mg/dL Magnesium 2.0 (1.6-2.3) mg/dL Total Bilirubin 1.2 (0.2-1.3) mg/dL AST 27 (14-36) U/L ALT 94 H (9-52) U/L Alkaline Phosphatase 198 H (38-126) U/L Total Protein 4.3 L (6.3-8.3) g/dL Albumin 2.1 L (3.5-5.0) g/dL Globulin 2.3 (2.2-3.9) gm/dL Albumin/Globulin Ratio 0.9 L (1.0-2.1) Stool Occult Blood (NEGATIVE) Blood Type Antibody Screen 02/26/18 02/25/18 02/25/18 Range/Units 00:08 23:48 23:41 WBC (4.8-10.8) K/uL RBC (3.80-5.20) Mil/uL Hgb (11.0-16.0) g/dL Hct (34.0-47.0) % MCV (81.0-99.0) fL MCH (27.0-31.0) pg MCHC (33.0-37.0) g/dL RDW (11.5-14.5) % Plt Count (130-400) K/uL MPV (7.2-11.7) fL Neut % (Auto) (50.0-75.0) % Lymph % (Auto) (20.0-40.0) % [place] % (Auto) (0.0-10.0) % Eos % (Auto) (0.0-4.0) % Baso % (Auto) (0.0-2.0) % Neut # (Auto) (1.8-7.0) K/uL Lymph # (Auto) (1.0-4.3) K/uL [place] # (Auto) (0.0-0.8) K/uL Eos # (Auto) (0.0-0.7) K/uL Baso # (Auto) (0.0-0.2) K/uL Neutrophils % (Manual) (50-75) % Band Neutrophils % (0-2) % Lymphocytes % (Manual) (20-40) % Monocytes % (Manual) (0-10) % Myelocytes % (0-0) % Platelet Estimate (NORMAL) Hypochromasia (manual) Poikilocytosis (manual Basophilic Stippling Anisocytosis (manual) Target Cells Ovalocytes PT 15.6 H (9.7-12.2) SECONDS INR 1.4 APTT 29 (21-34) SECONDS Puncture Site pCO2 (35-45) mm/Hg pO2 (80-100) mm/Hg HCO3 (21-28) mmol/L ABG pH (7.35-7.45) ABG Total CO2 (22-28) mmol/L ABG O2 Saturation (95-98) % ABG Base Excess (-2.0-3.0) mmol/L ABG Hemoglobin (11.7-17.4) g/dL ABG Carboxyhemoglobin (0.5-1.5) % POC ABG HHb (Measured) (0.0-5.0) % ABG Methemoglobin (0.0-3.0) % [place] Test A-a O2 Difference mm/Hg Respiratory Index Hgb O2 Saturation (95.0-98.0) % Vent Mode Mechanical Rate FiO2 % Tidal Volume PEEP Sodium (132-148) mmol/L Potassium (3.6-5.2) mmol/L Chloride (98-107) mmol/L Carbon Dioxide (22-30) mmol/L Anion Gap (10-20) BUN (7-17) mg/dL Creatinine (0.7-1.2) mg/dL Est GFR ( Amer) Est GFR (Non-Af Amer) POC Glucose (mg/dL) 190 H (65-110) mg/dL Random Glucose (65-105) mg/dL Calcium (8.6-10.4) mg/dl Phosphorus (2.5-4.5) mg/dL Magnesium (1.6-2.3) mg/dL Total Bilirubin (0.2-1.3) mg/dL AST (14-36) U/L ALT (9-52) U/L Alkaline Phosphatase (38-126) U/L Total Protein (6.3-8.3) g/dL Albumin (3.5-5.0) g/dL Globulin (2.2-3.9) gm/dL Albumin/Globulin Ratio (1.0-2.1) Stool Occult Blood (NEGATIVE) Blood Type B POSITIVE Antibody Screen Negative 02/25/18 02/25/18 02/25/18 Range/Units 22:36 18:42 18:30 WBC 0.9 L* D (4.8-10.8) K/uL RBC 2.88 L (3.80-5.20) Mil/uL Hgb 7.4 L (11.0-16.0) g/dL Hct 23.0 L (34.0-47.0) % MCV 79.6 L (81.0-99.0) fL MCH 25.8 L (27.0-31.0) pg MCHC 32.4 L (33.0-37.0) g/dL RDW 21.1 H (11.5-14.5) % Plt Count 18 L* (130-400) K/uL MPV 10.9 (7.2-11.7) fL Neut % (Auto) (50.0-75.0) % Lymph % (Auto) (20.0-40.0) % [place] % (Auto) (0.0-10.0) % Eos % (Auto) (0.0-4.0) % Baso % (Auto) (0.0-2.0) % Neut # (Auto) (1.8-7.0) K/uL Lymph # (Auto) (1.0-4.3) K/uL [place] # (Auto) (0.0-0.8) K/uL Eos # (Auto) (0.0-0.7) K/uL Baso # (Auto) (0.0-0.2) K/uL Neutrophils % (Manual) (50-75) % Band Neutrophils % (0-2) % Lymphocytes % (Manual) (20-40) % Monocytes % (Manual) (0-10) % Myelocytes % (0-0) % Platelet Estimate (NORMAL) Hypochromasia (manual) Poikilocytosis (manual Basophilic Stippling Anisocytosis (manual) Target Cells Ovalocytes PT (9.7-12.2) SECONDS INR APTT (21-34) SECONDS Puncture Site Rba pCO2 40 (35-45) mm/Hg pO2 212 H (80-100) mm/Hg HCO3 30.1 H (21-28) mmol/L ABG pH 7.49 H (7.35-7.45) ABG Total CO2 31.7 H (22-28) mmol/L ABG O2 Saturation 99.3 H (95-98) % ABG Base Excess 6.6 H (-2.0-3.0) mmol/L ABG Hemoglobin 7.9 L (11.7-17.4) g/dL ABG Carboxyhemoglobin 1.0 (0.5-1.5) % POC ABG HHb (Measured) 0.7 (0.0-5.0) % ABG Methemoglobin 1.4 (0.0-3.0) % Chepe Test Na A-a O2 Difference 451.0 mm/Hg Respiratory Index 2.1 Hgb O2 Saturation 97.0 (95.0-98.0) % Vent Mode Prvc Mechanical Rate 14 FiO2 100.0 % Tidal Volume 450 PEEP 5 Sodium (132-148) mmol/L Potassium (3.6-5.2) mmol/L Chloride (98-107) mmol/L Carbon Dioxide (22-30) mmol/L Anion Gap (10-20) BUN (7-17) mg/dL Creatinine (0.7-1.2) mg/dL Est GFR ( Amer) Est GFR (Non-Af Amer) POC Glucose (mg/dL) (65-110) mg/dL Random Glucose (65-105) mg/dL Calcium (8.6-10.4) mg/dl Phosphorus (2.5-4.5) mg/dL Magnesium (1.6-2.3) mg/dL Total Bilirubin (0.2-1.3) mg/dL AST (14-36) U/L ALT (9-52) U/L Alkaline Phosphatase (38-126) U/L Total Protein (6.3-8.3) g/dL Albumin (3.5-5.0) g/dL Globulin (2.2-3.9) gm/dL Albumin/Globulin Ratio (1.0-2.1) Stool Occult Blood Positive H (NEGATIVE) Blood Type Antibody Screen 02/25/18 Range/Units 17:39 WBC (4.8-10.8) K/uL RBC (3.80-5.20) Mil/uL Hgb (11.0-16.0) g/dL Hct (34.0-47.0) % MCV (81.0-99.0) fL MCH (27.0-31.0) pg MCHC (33.0-37.0) g/dL RDW (11.5-14.5) % Plt Count (130-400) K/uL MPV (7.2-11.7) fL Neut % (Auto) (50.0-75.0) % Lymph % (Auto) (20.0-40.0) % [place] % (Auto) (0.0-10.0) % Eos % (Auto) (0.0-4.0) % Baso % (Auto) (0.0-2.0) % Neut # (Auto) (1.8-7.0) K/uL Lymph # (Auto) (1.0-4.3) K/uL [place] # (Auto) (0.0-0.8) K/uL Eos # (Auto) (0.0-0.7) K/uL Baso # (Auto) (0.0-0.2) K/uL Neutrophils % (Manual) (50-75) % Band Neutrophils % (0-2) % Lymphocytes % (Manual) (20-40) % Monocytes % (Manual) (0-10) % Myelocytes % (0-0) % Platelet Estimate (NORMAL) Hypochromasia (manual) Poikilocytosis (manual Basophilic Stippling Anisocytosis (manual) Target Cells Ovalocytes PT (9.7-12.2) SECONDS INR APTT (21-34) SECONDS Puncture Site pCO2 (35-45) mm/Hg pO2 (80-100) mm/Hg HCO3 (21-28) mmol/L ABG pH (7.35-7.45) ABG Total CO2 (22-28) mmol/L ABG O2 Saturation (95-98) % ABG Base Excess (-2.0-3.0) mmol/L ABG Hemoglobin (11.7-17.4) g/dL ABG Carboxyhemoglobin (0.5-1.5) % POC ABG HHb (Measured) (0.0-5.0) % ABG Methemoglobin (0.0-3.0) % [place] Test A-a O2 Difference mm/Hg Respiratory Index Hgb O2 Saturation (95.0-98.0) % Vent Mode Mechanical Rate FiO2 % Tidal Volume PEEP Sodium (132-148) mmol/L Potassium (3.6-5.2) mmol/L Chloride (98-107) mmol/L Carbon Dioxide (22-30) mmol/L Anion Gap (10-20) BUN (7-17) mg/dL Creatinine (0.7-1.2) mg/dL Est GFR ( Amer) Est GFR (Non-Af Amer) POC Glucose (mg/dL) 310 H (65-110) mg/dL Random Glucose (65-105) mg/dL Calcium (8.6-10.4) mg/dl Phosphorus (2.5-4.5) mg/dL Magnesium (1.6-2.3) mg/dL Total Bilirubin (0.2-1.3) mg/dL AST (14-36) U/L ALT (9-52) U/L Alkaline Phosphatase (38-126) U/L Total Protein (6.3-8.3) g/dL Albumin (3.5-5.0) g/dL Globulin (2.2-3.9) gm/dL Albumin/Globulin Ratio (1.0-2.1) Stool Occult Blood (NEGATIVE) Blood Type Antibody Screen Laboratory Results - last 24 hr 02/25/18 02/25/18 02/25/18 17:39 18:30 18:42 WBC 0.9 L* D RBC 2.88 L Hgb 7.4 L Hct 23.0 L MCV 79.6 L MCH 25.8 L MCHC 32.4 L RDW 21.1 H Plt Count 18 L* MPV 10.9 Neut % (Auto) Lymph % (Auto) [place] % (Auto) Eos % (Auto) Baso % (Auto) Neut # (Auto) Lymph # (Auto) [place] # (Auto) Eos # (Auto) Baso # (Auto) Neutrophils % (Manual) Band Neutrophils % Lymphocytes % (Manual) Monocytes % (Manual) Myelocytes % Platelet Estimate Hypochromasia (manual) Poikilocytosis (manual Basophilic Stippling Anisocytosis (manual) Target Cells Ovalocytes PT INR APTT Puncture Site Rba pCO2 40 pO2 212 H HCO3 30.1 H ABG pH 7.49 H ABG Total CO2 31.7 H ABG O2 Saturation 99.3 H ABG Base Excess 6.6 H ABG Hemoglobin 7.9 L ABG Carboxyhemoglobin 1.0 POC ABG HHb (Measured) 0.7 ABG Methemoglobin 1.4 [place] Test Na A-a O2 Difference 451.0 Respiratory Index 2.1 Hgb O2 Saturation 97.0 Vent Mode Prvc Mechanical Rate 14 FiO2 100.0 Tidal Volume 450 PEEP 5 Sodium Potassium Chloride Carbon Dioxide Anion Gap BUN Creatinine Est GFR ( Amer) Est GFR (Non-Af Amer) POC Glucose (mg/dL) 310 H Random Glucose Calcium Phosphorus Magnesium Total Bilirubin AST ALT Alkaline Phosphatase Total Protein Albumin Globulin Albumin/Globulin Ratio Stool Occult Blood Blood Type Antibody Screen 02/25/18 02/25/18 02/25/18 22:36 23:41 23:48 WBC RBC Hgb Hct MCV MCH MCHC RDW Plt Count MPV Neut % (Auto) Lymph % (Auto) [place] % (Auto) Eos % (Auto) Baso % (Auto) Neut # (Auto) Lymph # (Auto) [place] # (Auto) Eos # (Auto) Baso # (Auto) Neutrophils % (Manual) Band Neutrophils % Lymphocytes % (Manual) Monocytes % (Manual) Myelocytes % Platelet Estimate Hypochromasia (manual) Poikilocytosis (manual Basophilic Stippling Anisocytosis (manual) Target Cells Ovalocytes PT 15.6 H INR 1.4 APTT 29 Puncture Site pCO2 pO2 HCO3 ABG pH ABG Total CO2 ABG O2 Saturation ABG Base Excess ABG Hemoglobin ABG Carboxyhemoglobin POC ABG HHb (Measured) ABG Methemoglobin [place] Test A-a O2 Difference Respiratory Index Hgb O2 Saturation Vent Mode Mechanical Rate FiO2 Tidal Volume PEEP Sodium Potassium Chloride Carbon Dioxide Anion Gap BUN Creatinine Est GFR ( Amer) Est GFR (Non-Af Amer) POC Glucose (mg/dL) 190 H Random Glucose Calcium Phosphorus Magnesium Total Bilirubin AST ALT Alkaline Phosphatase Total Protein Albumin Globulin Albumin/Globulin Ratio Stool Occult Blood Positive H Blood Type Antibody Screen 02/26/18 02/26/18 02/26/18 00:08 05:15 05:26 WBC RBC Hgb Hct MCV MCH MCHC RDW Plt Count MPV Neut % (Auto) Lymph % (Auto) [place] % (Auto) Eos % (Auto) Baso % (Auto) Neut # (Auto) Lymph # (Auto) [place] # (Auto) Eos # (Auto) Baso # (Auto) Neutrophils % (Manual) Band Neutrophils % Lymphocytes % (Manual) Monocytes % (Manual) Myelocytes % Platelet Estimate Hypochromasia (manual) Poikilocytosis (manual Basophilic Stippling Anisocytosis (manual) Target Cells Ovalocytes PT INR APTT Puncture Site R rad pCO2 44 pO2 106 H HCO3 27.8 ABG pH 7.42 ABG Total CO2 29.9 H ABG O2 Saturation 99.0 H ABG Base Excess 3.6 H ABG Hemoglobin 8.0 L ABG Carboxyhemoglobin 1.0 POC ABG HHb (Measured) 1.0 ABG Methemoglobin 1.0 [place] Test Pos A-a O2 Difference 338.0 Respiratory Index 3.2 Hgb O2 Saturation 97.0 Vent Mode Prvc Mechanical Rate 20 FiO2 70.0 Tidal Volume 400 PEEP 5 Sodium Potassium Chloride Carbon Dioxide Anion Gap BUN Creatinine Est GFR ( Amer) Est GFR (Non-Af Amer) POC Glucose (mg/dL) 253 H Random Glucose Calcium Phosphorus Magnesium Total Bilirubin AST ALT Alkaline Phosphatase Total Protein Albumin Globulin Albumin/Globulin Ratio Stool Occult Blood Blood Type B POSITIVE Antibody Screen Negative 02/26/18 02/26/18 02/26/18 05:51 05:51 11:32 WBC 1.4 L* D 1.4 L* RBC 3.04 L 2.78 L Hgb 8.2 L 7.4 L Hct 24.7 L 22.3 L MCV 81.1 80.2 L MCH 26.8 L 26.4 L MCHC 33.0 33.0 RDW 21.4 H 21.6 H Plt Count 18 L* 25 L* MPV 11.2 10.0 Neut % (Auto) 94.7 H 96.2 H Lymph % (Auto) 2.8 L 2.8 L [place] % (Auto) 1.7 0.6 Eos % (Auto) 0.0 0.0 Baso % (Auto) 0.8 0.4 Neut # (Auto) 1.3 L 1.3 L Lymph # (Auto) 0.1 L 0.0 L [place] # (Auto) 0.0 0.0 Eos # (Auto) 0.0 0.0 Baso # (Auto) 0.0 0.0 Neutrophils % (Manual) 74 82 H Band Neutrophils % 20 H* 10 H Lymphocytes % (Manual) 4 L 4 L Monocytes % (Manual) 1 4 Myelocytes % 1 H Platelet Estimate Markedly decreased L Decreased L Hypochromasia (manual) Slight Slight Poikilocytosis (manual Slight Basophilic Stippling Slight Anisocytosis (manual) Moderate Slight Target Cells Slight Slight Ovalocytes Slight PT INR APTT Puncture Site pCO2 pO2 HCO3 ABG pH ABG Total CO2 ABG O2 Saturation ABG Base Excess ABG Hemoglobin ABG Carboxyhemoglobin POC ABG HHb (Measured) ABG Methemoglobin [place] Test A-a O2 Difference Respiratory Index Hgb O2 Saturation Vent Mode Mechanical Rate FiO2 Tidal Volume PEEP Sodium 147 Potassium 4.3 Chloride 112 H Carbon Dioxide 29 Anion Gap 11 BUN 41 H Creatinine 0.6 L Est GFR ( Amer) > 60 Est GFR (Non-Af Amer) > 60 POC Glucose (mg/dL) Random Glucose 225 H Calcium 8.1 L Phosphorus 3.3 Magnesium 2.0 Total Bilirubin 1.2 AST 27 ALT 94 H Alkaline Phosphatase 198 H Total Protein 4.3 L Albumin 2.1 L Globulin 2.3 Albumin/Globulin Ratio 0.9 L Stool Occult Blood Blood Type Antibody Screen 02/26/18 11:38 WBC RBC Hgb Hct MCV MCH MCHC RDW Plt Count MPV Neut % (Auto) Lymph % (Auto) [place] % (Auto) Eos % (Auto) Baso % (Auto) Neut # (Auto) Lymph # (Auto) [place] # (Auto) Eos # (Auto) Baso # (Auto) Neutrophils % (Manual) Band Neutrophils % Lymphocytes % (Manual) Monocytes % (Manual) Myelocytes % Platelet Estimate Hypochromasia (manual) Poikilocytosis (manual Basophilic Stippling Anisocytosis (manual) Target Cells Ovalocytes PT INR APTT Puncture Site pCO2 pO2 HCO3 ABG pH ABG Total CO2 ABG O2 Saturation ABG Base Excess ABG Hemoglobin ABG Carboxyhemoglobin POC ABG HHb (Measured) ABG Methemoglobin Chepe Test A-a O2 Difference Respiratory Index Hgb O2 Saturation Vent Mode Mechanical Rate FiO2 Tidal Volume PEEP Sodium Potassium Chloride Carbon Dioxide Anion Gap BUN Creatinine Est GFR ( Amer) Est GFR (Non-Af Amer) POC Glucose (mg/dL) 198 H Random Glucose Calcium Phosphorus Magnesium Total Bilirubin AST ALT Alkaline Phosphatase Total Protein Albumin Globulin Albumin/Globulin Ratio Stool Occult Blood Blood Type Antibody Screen Fingerstick Blood Sugar Results: 198 Assessment/Plan - Assessment and Plan (Free Text) Assessment: 72 year old female with history of left breast cancer s/p mastectomy, cervical cancer s/p hysterectomy, newly diagnosed lymphoma, COPD, HTN, DM, anemia sp transfusion. ICU consulted for neutropenic fevers after chemo. Plan: Neuro: Patient intubated, sedated on Propofol Cardiovascular: Hypotensive currently on Levophed Patient has history of HTN, Hold antihypertensives given current hypotension Vasopressin ordered, however patient has not required it Pulmonary Right upper lobe infiltrate CXR Bilateral coalescent airspace opaciies infiltrates and or pulmonary edema/ ARDS are all considerations/compatible with this. No significant change regarding this appearance noted. CT chest Interval worsening bilateral pneumonia affecting primarily the bilateral lower lobes greater than the bilateral upper lobes and minimally involving the middle lobe. Prior right pleural effusion diminished in the interval. Cholelithiasis. Bilateral adrenal hypertrophy without gross mass evident. Mild splenomegaly to 13.6 cm. Small hiatal hernia identified Patient intubated on 02/25/18. Sedated on Propofol Legionella negative mycoplasma negative GI Protonix 40mg Stool occult + Renal BUN 41 Cr 0.6 I & Os +3466ml Continue to monitor electrolytes Heme/Onc Hx of left breast cancer s/p mastectomy Hx of cervical cancer s/p hysterectomy Newly diagnosed lymphoma Anemic H/H 7.4/22.3, stool occult + Transfused 1 unit PRBCs Noted to be thrombocytopenic at 25 s/p [address] Krueger consulted, help appreciated Surgery Dr. Garcia on board (formerly [facility] ) ID Tmax 100.1 white count 0.3 today Platelets only improved to 16 today Blood cultures prelim positive for GP cocci on meropenem day2, micafungin day3, vancomycin day [address] Mccollum consulted, help appreciated Endo Hx of DM ISS PPX: On Protonix Case discussed with Dr. Stewart <Bryant Stewart - Last Filed: 02/26/18 18:55> CCU Objective - Vital Signs / Intake & Output Vital Signs (Last 4 hours): Vital Signs Temp Pulse Resp BP Pulse Ox 02/26/18 18:18 94 H 37 H 95/55 L 96 02/26/18 17:48 99 H 37 H 105/54 L 97 02/26/18 17:30 98.9 F 02/26/18 17:18 101 H 34 H 109/62 98 02/26/18 16:49 98.9 F 99 H 32 H 112/61 02/26/18 16:48 102 H 20 112/61 97 02/26/18 16:23 98.6 F 02/26/18 16:19 98.6 F 103 H 26 H 131/68 02/26/18 16:18 100 H 16 131/68 98 02/26/18 16:09 98 H 20 117/65 97 02/26/18 16:04 98.4 F 99 H 22 117/65 02/26/18 16:00 100.2 F H 02/26/18 15:49 100.2 F H 102 H 23 108/53 L 02/26/18 15:48 97 H 18 108/53 L 97 02/26/18 15:23 100.2 F H 02/26/18 15:18 98 H 16 114/58 L 96 02/26/18 14:48 95 H 33 H 116/57 L 96 Intake and Output (Last 8hrs): Intake & Output 02/26/18 02/26/18 02/26/18 06:59 14:59 22:59 Intake Total 1472.8 1748.8 851.5 Balance 1472.8 1748.8 851.5 Weight 136 lb 8 oz Intake: IV 540 600 270 Intake, IV Amount 632.8 749.8 581.5 Right Distal Port Port-A- 84.8 113.4 64 Cath Right Forearm 100 Right Hand 100 270 Right Port-A-Cath 448 536.4 247.5 Blood Product 300 299 0 Apheresis Plts Acda Lr 0 299 Irr 2nd Unit [id number] Red Blood Cells Cpd As1 0 Lr Unit [id number] Other 100 Apheresis Plts Acda Lr 100 Irr 2nd Unit [id number] Other: # Voids Urine, Voided 0 # Bowel Movements 1 0 - Medications Active Medications: Active Medications Generic Name Dose Route Start Last Admin Trade Name Freq PRN Reason Stop Dose Admin Acetaminophen 650 mg 02/14/18 20:48 02/26/18 15:23 Tylenol 325mg Tab PO 650 mg Q6 PRN Administration pain Albuterol/Ipratropium 3 ml 02/24/18 08:00 02/26/18 07:08 Duoneb 3 Mg/0.5 Mg (3 Ml) Ud INH 3 ml RQ6 MILLIE Administration Hydralazine HCl 50 mg 02/06/18 10:00 02/26/18 17:07 Apresoline PO Not Given TID MILLIE Hydralazine HCl 10 mg 02/11/18 00:00 Apresoline IVP Q6H PRN Other Vancomycin/Sodium Chloride 1 gm in 200 mls @ 166.7 mls/hr 02/24/18 10:00 12/08 09:46 Vancomycin 1 Gm/Ns 200 Ml IVPB 03/01/18 10:01 166.7 mls/hr Q12H MILLIE Administration Protocol Micafungin Sodium 100 mg/ 100 mls @ 100 mls/hr 02/24/18 13:00 02/26/18 13:41 Dextrose IV 100 mls/hr Q24H MILLIE Administration Protocol Propofol 1,000 mg in 100 mls @ 1.772 mls/hr 02/25/18 15:35 02/26/18 15:02 Diprivan IV 45 mcg/kg/min .Q24H PRN 15.946 mls/hr TITRATE PER MD ORDER Titration Protocol 5 MCG/KG/MIN Norepinephrine Bitartrate 4 mg 250 mls @ 15 mls/hr 02/25/18 16:40 02/26/18 18 :18 / Sodium Chloride IV 16 mcg/min .[id number] PRN 60 mls/hr TITRATE PER MD ORDER Administration Protocol 4 MCG/MIN Meropenem 1 gm/ Sodium 100 mls @ 100 mls/hr 02/25/18 20:00 02/26/18 11:42 Chloride IVPB 100 mls/hr Q8H MILLIE Administration Protocol Vasopressin 40 units/ Sodium 40 mls @ 0.6 mls/hr 02/26/18 11:15 Chloride IV .Q24H MILLIE Protocol 0.01 UNITS/MIN Insulin Aspart 0 unit 02/25/18 18:00 02/26/18 18:18 Novolog SC 4 u Q6H MILLIE Administration Protocol Lorazepam 1 mg 02/26/18 11:01 02/26/18 16:29 Ativan IVP 1 mg Q4H PRN Administration Agitation Methylprednisolone 20 mg 02/25/18 22:00 02/26/18 09:46 Solu-Medrol IVP 20 mg Q12 MILLIE Administration Multivitamins/Vitamin C 5 ml 02/24/18 10:15 02/26/18 09:45 Multi-Delyn Liquid PO 5 ml DAILY MILLIE Administration Pantoprazole Sodium 40 mg 02/27/18 10:00 Protonix Susp PO DAILY MILLIE Simethicone 80 mg 02/17/18 20:31 02/18/18 20:28 Mylicon Chew Tab PO 80 mg Q8 PRN Administration GI distress Tiotropium Ava 18 mcg 01/30/18 08:00 02/26/18 07:08 Spiriva INH 18 mcg RQ24 MILLIE Administration - Patient Studies Lab Studies: Microbiology Studies 02/25/18 05:55 Blood Culture - Preliminary Blood-Thru Central Line NO GROWTH AFTER 24 HOURS 02/25/18 05:55 Blood Culture - Preliminary Blood-Thru Central Line NO GROWTH AFTER 24 HOURS 02/25/18 15:46 Gram Stain - Final Sputum Induced Lab Studies 02/26/18 02/26/18 02/26/18 Range/Units 11:38 11:32 05:51 WBC 1.4 L* 1.4 L* D (4.8-10.8) K/uL RBC 2.78 L 3.04 L (3.80-5.20) Mil/uL Hgb 7.4 L 8.2 L (11.0-16.0) g/dL Hct 22.3 L 24.7 L (34.0-47.0) % MCV 80.2 L 81.1 (81.0-99.0) fL MCH 26.4 L 26.8 L (27.0-31.0) pg MCHC 33.0 33.0 (33.0-37.0) g/dL RDW 21.6 H 21.4 H (11.5-14.5) % Plt Count 25 L* 18 L* (130-400) K/uL MPV 10.0 11.2 (7.2-11.7) fL Neut % (Auto) 96.2 H 94.7 H (50.0-75.0) % Lymph % (Auto) 2.8 L 2.8 L (20.0-40.0) % [place] % (Auto) 0.6 1.7 (0.0-10.0) % Eos % (Auto) 0.0 0.0 (0.0-4.0) % Baso % (Auto) 0.4 0.8 (0.0-2.0) % Neut # (Auto) 1.3 L 1.3 L (1.8-7.0) K/uL Lymph # (Auto) 0.0 L 0.1 L (1.0-4.3) K/uL [place] # (Auto) 0.0 0.0 (0.0-0.8) K/uL Eos # (Auto) 0.0 0.0 (0.0-0.7) K/uL Baso # (Auto) 0.0 0.0 (0.0-0.2) K/uL Neutrophils % (Manual) 82 H 74 (50-75) % Band Neutrophils % 10 H 20 H* (0-2) % Lymphocytes % (Manual) 4 L 4 L (20-40) % Monocytes % (Manual) 4 1 (0-10) % Myelocytes % 1 H (0-0) % Platelet Estimate Decreased L Markedly decreased L (NORMAL) Hypochromasia (manual) Slight Slight Poikilocytosis (manual Slight Basophilic Stippling Slight Anisocytosis (manual) Slight Moderate Target Cells Slight Slight Ovalocytes Slight PT (9.7-12.2) SECONDS INR APTT (21-34) SECONDS Puncture Site pCO2 (35-45) mm/Hg pO2 (80-100) mm/Hg HCO3 (21-28) mmol/L ABG pH (7.35-7.45) ABG Total CO2 (22-28) mmol/L ABG O2 Saturation (95-98) % ABG Base Excess (-2.0-3.0) mmol/L ABG Hemoglobin (11.7-17.4) g/dL ABG Carboxyhemoglobin (0.5-1.5) % POC ABG HHb (Measured) (0.0-5.0) % ABG Methemoglobin (0.0-3.0) % [place]pe Test A-a O2 Difference mm/Hg Respiratory Index Hgb O2 Saturation (95.0-98.0) % Vent Mode Mechanical Rate FiO2 % Tidal Volume PEEP Sodium (132-148) mmol/L Potassium (3.6-5.2) mmol/L Chloride (98-107) mmol/L Carbon Dioxide (22-30) mmol/L Anion Gap (10-20) BUN (7-17) mg/dL Creatinine (0.7-1.2) mg/dL Est GFR ( Amer) Est GFR (Non-Af Amer) POC Glucose (mg/dL) 198 H (65-110) mg/dL Random Glucose (65-105) mg/dL Calcium (8.6-10.4) mg/dl Phosphorus (2.5-4.5) mg/dL Magnesium (1.6-2.3) mg/dL Total Bilirubin (0.2-1.3) mg/dL AST (14-36) U/L ALT (9-52) U/L Alkaline Phosphatase (38-126) U/L Total Protein (6.3-8.3) g/dL Albumin (3.5-5.0) g/dL Globulin (2.2-3.9) gm/dL Albumin/Globulin Ratio (1.0-2.1) Stool Occult Blood (NEGATIVE) Blood Type Antibody Screen 02/26/18 02/26/18 02/26/18 Range/Units 05:51 05:26 05:15 WBC (4.8-10.8) K/uL RBC (3.80-5.20) Mil/uL Hgb (11.0-16.0) g/dL Hct (34.0-47.0) % MCV (81.0-99.0) fL MCH (27.0-31.0) pg MCHC (33.0-37.0) g/dL RDW (11.5-14.5) % Plt Count (130-400) K/uL MPV (7.2-11.7) fL Neut % (Auto) (50.0-75.0) % Lymph % (Auto) (20.0-40.0) % [place] % (Auto) (0.0-10.0) % Eos % (Auto) (0.0-4.0) % Baso % (Auto) (0.0-2.0) % Neut # (Auto) (1.8-7.0) K/uL Lymph # (Auto) (1.0-4.3) K/uL [place] # (Auto) (0.0-0.8) K/uL Eos # (Auto) (0.0-0.7) K/uL Baso # (Auto) (0.0-0.2) K/uL Neutrophils % (Manual) (50-75) % Band Neutrophils % (0-2) % Lymphocytes % (Manual) (20-40) % Monocytes % (Manual) (0-10) % Myelocytes % (0-0) % Platelet Estimate (NORMAL) Hypochromasia (manual) Poikilocytosis (manual Basophilic Stippling Anisocytosis (manual) Target Cells Ovalocytes PT (9.7-12.2) SECONDS INR APTT (21-34) SECONDS Puncture Site R rad pCO2 44 (35-45) mm/Hg pO2 106 H (80-100) mm/Hg HCO3 27.8 (21-28) mmol/L ABG pH 7.42 (7.35-7.45) ABG Total CO2 29.9 H (22-28) mmol/L ABG O2 Saturation 99.0 H (95-98) % ABG Base Excess 3.6 H (-2.0-3.0) mmol/L ABG Hemoglobin 8.0 L (11.7-17.4) g/dL ABG Carboxyhemoglobin 1.0 (0.5-1.5) % POC ABG HHb (Measured) 1.0 (0.0-5.0) % ABG Methemoglobin 1.0 (0.0-3.0) % Chepe Test Pos A-a O2 Difference 338.0 mm/Hg Respiratory Index 3.2 Hgb O2 Saturation 97.0 (95.0-98.0) % Vent Mode Prvc Mechanical Rate 20 FiO2 70.0 % Tidal Volume 400 PEEP 5 Sodium 147 (132-148) mmol/L Potassium 4.3 (3.6-5.2) mmol/L Chloride 112 H (98-107) mmol/L Carbon Dioxide 29 (22-30) mmol/L Anion Gap 11 (10-20) BUN 41 H (7-17) mg/dL Creatinine 0.6 L (0.7-1.2) mg/dL Est GFR ( Amer) > 60 Est GFR (Non-Af Amer) > 60 POC Glucose (mg/dL) 253 H (65-110) mg/dL Random Glucose 225 H (65-105) mg/dL Calcium 8.1 L (8.6-10.4) mg/dl Phosphorus 3.3 (2.5-4.5) mg/dL Magnesium 2.0 (1.6-2.3) mg/dL Total Bilirubin 1.2 (0.2-1.3) mg/dL AST 27 (14-36) U/L ALT 94 H (9-52) U/L Alkaline Phosphatase 198 H (38-126) U/L Total Protein 4.3 L (6.3-8.3) g/dL Albumin 2.1 L (3.5-5.0) g/dL Globulin 2.3 (2.2-3.9) gm/dL Albumin/Globulin Ratio 0.9 L (1.0-2.1) Stool Occult Blood (NEGATIVE) Blood Type Antibody Screen 02/26/18 02/25/18 02/25/18 Range/Units 00:08 23:48 23:41 WBC (4.8-10.8) K/uL RBC (3.80-5.20) Mil/uL Hgb (11.0-16.0) g/dL Hct (34.0-47.0) % MCV (81.0-99.0) fL MCH (27.0-31.0) pg MCHC (33.0-37.0) g/dL RDW (11.5-14.5) % Plt Count (130-400) K/uL MPV (7.2-11.7) fL Neut % (Auto) (50.0-75.0) % Lymph % (Auto) (20.0-40.0) % [place] % (Auto) (0.0-10.0) % Eos % (Auto) (0.0-4.0) % Baso % (Auto) (0.0-2.0) % Neut # (Auto) (1.8-7.0) K/uL Lymph # (Auto) (1.0-4.3) K/uL [place] # (Auto) (0.0-0.8) K/uL Eos # (Auto) (0.0-0.7) K/uL Baso # (Auto) (0.0-0.2) K/uL Neutrophils % (Manual) (50-75) % Band Neutrophils % (0-2) % Lymphocytes % (Manual) (20-40) % Monocytes % (Manual) (0-10) % Myelocytes % (0-0) % Platelet Estimate (NORMAL) Hypochromasia (manual) Poikilocytosis (manual Basophilic Stippling Anisocytosis (manual) Target Cells Ovalocytes PT 15.6 H (9.7-12.2) SECONDS INR 1.4 APTT 29 (21-34) SECONDS Puncture Site pCO2 (35-45) mm/Hg pO2 (80-100) mm/Hg HCO3 (21-28) mmol/L ABG pH (7.35-7.45) ABG Total CO2 (22-28) mmol/L ABG O2 Saturation (95-98) % ABG Base Excess (-2.0-3.0) mmol/L ABG Hemoglobin (11.7-17.4) g/dL ABG Carboxyhemoglobin (0.5-1.5) % POC ABG HHb (Measured) (0.0-5.0) % ABG Methemoglobin (0.0-3.0) % [place] Test A-a O2 Difference mm/Hg Respiratory Index Hgb O2 Saturation (95.0-98.0) % Vent Mode Mechanical Rate FiO2 % Tidal Volume PEEP Sodium (132-148) mmol/L Potassium (3.6-5.2) mmol/L Chloride (98-107) mmol/L Carbon Dioxide (22-30) mmol/L Anion Gap (10-20) BUN (7-17) mg/dL Creatinine (0.7-1.2) mg/dL Est GFR ( Amer) Est GFR (Non-Af Amer) POC Glucose (mg/dL) 190 H (65-110) mg/dL Random Glucose (65-105) mg/dL Calcium (8.6-10.4) mg/dl Phosphorus (2.5-4.5) mg/dL Magnesium (1.6-2.3) mg/dL Total Bilirubin (0.2-1.3) mg/dL AST (14-36) U/L ALT (9-52) U/L Alkaline Phosphatase (38-126) U/L Total Protein (6.3-8.3) g/dL Albumin (3.5-5.0) g/dL Globulin (2.2-3.9) gm/dL Albumin/Globulin Ratio (1.0-2.1) Stool Occult Blood (NEGATIVE) Blood Type B POSITIVE Antibody Screen Negative 02/25/18 02/25/18 02/25/18 Range/Units 22:36 18:42 17:39 WBC 0.9 L* D (4.8-10.8) K/uL RBC 2.88 L (3.80-5.20) Mil/uL Hgb 7.4 L (11.0-16.0) g/dL Hct 23.0 L (34.0-47.0) % MCV 79.6 L (81.0-99.0) fL MCH 25.8 L (27.0-31.0) pg MCHC 32.4 L (33.0-37.0) g/dL RDW 21.1 H (11.5-14.5) % Plt Count 18 L* (130-400) K/uL MPV 10.9 (7.2-11.7) fL Neut % (Auto) (50.0-75.0) % Lymph % (Auto) (20.0-40.0) % [place] % (Auto) (0.0-10.0) % Eos % (Auto) (0.0-4.0) % Baso % (Auto) (0.0-2.0) % Neut # (Auto) (1.8-7.0) K/uL Lymph # (Auto) (1.0-4.3) K/uL [place] # (Auto) (0.0-0.8) K/uL Eos # (Auto) (0.0-0.7) K/uL Baso # (Auto) (0.0-0.2) K/uL Neutrophils % (Manual) (50-75) % Band Neutrophils % (0-2) % Lymphocytes % (Manual) (20-40) % Monocytes % (Manual) (0-10) % Myelocytes % (0-0) % Platelet Estimate (NORMAL) Hypochromasia (manual) Poikilocytosis (manual Basophilic Stippling Anisocytosis (manual) Target Cells Ovalocytes PT (9.7-12.2) SECONDS INR APTT (21-34) SECONDS Puncture Site pCO2 (35-45) mm/Hg pO2 (80-100) mm/Hg HCO3 (21-28) mmol/L ABG pH (7.35-7.45) ABG Total CO2 (22-28) mmol/L ABG O2 Saturation (95-98) % ABG Base Excess (-2.0-3.0) mmol/L ABG Hemoglobin (11.7-17.4) g/dL ABG Carboxyhemoglobin (0.5-1.5) % POC ABG HHb (Measured) (0.0-5.0) % ABG Methemoglobin (0.0-3.0) % [place] Test A-a O2 Difference mm/Hg Respiratory Index Hgb O2 Saturation (95.0-98.0) % Vent Mode Mechanical Rate FiO2 % Tidal Volume PEEP Sodium (132-148) mmol/L Potassium (3.6-5.2) mmol/L Chloride (98-107) mmol/L Carbon Dioxide (22-30) mmol/L Anion Gap (10-20) BUN (7-17) mg/dL Creatinine (0.7-1.2) mg/dL Est GFR ( Amer) Est GFR (Non-Af Amer) POC Glucose (mg/dL) 310 H (65-110) mg/dL Random Glucose (65-105) mg/dL Calcium (8.6-10.4) mg/dl Phosphorus (2.5-4.5) mg/dL Magnesium (1.6-2.3) mg/dL Total Bilirubin (0.2-1.3) mg/dL AST (14-36) U/L ALT (9-52) U/L Alkaline Phosphatase (38-126) U/L Total Protein (6.3-8.3) g/dL Albumin (3.5-5.0) g/dL Globulin (2.2-3.9) gm/dL Albumin/Globulin Ratio (1.0-2.1) Stool Occult Blood Positive H (NEGATIVE) Blood Type Antibody Screen Laboratory Results - last 24 hr 02/25/18 02/25/18 02/25/18 17:39 18:42 22:36 WBC 0.9 L* D RBC 2.88 L Hgb 7.4 L Hct 23.0 L MCV 79.6 L MCH 25.8 L MCHC 32.4 L RDW 21.1 H Plt Count 18 L* MPV 10.9 Neut % (Auto) Lymph % (Auto) [place] % (Auto) Eos % (Auto) Baso % (Auto) Neut # (Auto) Lymph # (Auto) [place] # (Auto) Eos # (Auto) Baso # (Auto) Neutrophils % (Manual) Band Neutrophils % Lymphocytes % (Manual) Monocytes % (Manual) Myelocytes % Platelet Estimate Hypochromasia (manual) Poikilocytosis (manual Basophilic Stippling Anisocytosis (manual) Target Cells Ovalocytes PT INR APTT Puncture Site pCO2 pO2 HCO3 ABG pH ABG Total CO2 ABG O2 Saturation ABG Base Excess ABG Hemoglobin ABG Carboxyhemoglobin POC ABG HHb (Measured) ABG Methemoglobin [place] Test A-a O2 Difference Respiratory Index Hgb O2 Saturation Vent Mode Mechanical Rate FiO2 Tidal Volume PEEP Sodium Potassium Chloride Carbon Dioxide Anion Gap BUN Creatinine Est GFR ( Amer) Est GFR (Non-Af Amer) POC Glucose (mg/dL) 310 H Random Glucose Calcium Phosphorus Magnesium Total Bilirubin AST ALT Alkaline Phosphatase Total Protein Albumin Globulin Albumin/Globulin Ratio Stool Occult Blood Positive H Blood Type Antibody Screen 02/25/18 02/25/18 02/26/18 23:41 23:48 00:08 WBC RBC Hgb Hct MCV MCH MCHC RDW Plt Count MPV Neut % (Auto) Lymph % (Auto) [place] % (Auto) Eos % (Auto) Baso % (Auto) Neut # (Auto) Lymph # (Auto) [place] # (Auto) Eos # (Auto) Baso # (Auto) Neutrophils % (Manual) Band Neutrophils % Lymphocytes % (Manual) Monocytes % (Manual) Myelocytes % Platelet Estimate Hypochromasia (manual) Poikilocytosis (manual Basophilic Stippling Anisocytosis (manual) Target Cells Ovalocytes PT 15.6 H INR 1.4 APTT 29 Puncture Site pCO2 pO2 HCO3 ABG pH ABG Total CO2 ABG O2 Saturation ABG Base Excess ABG Hemoglobin ABG Carboxyhemoglobin POC ABG HHb (Measured) ABG Methemoglobin [place] Test A-a O2 Difference Respiratory Index Hgb O2 Saturation Vent Mode Mechanical Rate FiO2 Tidal Volume PEEP Sodium Potassium Chloride Carbon Dioxide Anion Gap BUN Creatinine Est GFR ( Amer) Est GFR (Non-Af Amer) POC Glucose (mg/dL) 190 H Random Glucose Calcium Phosphorus Magnesium Total Bilirubin AST ALT Alkaline Phosphatase Total Protein Albumin Globulin Albumin/Globulin Ratio Stool Occult Blood Blood Type B POSITIVE Antibody Screen Negative 02/26/18 02/26/18 02/26/18 05:15 05:26 05:51 WBC RBC Hgb Hct MCV MCH MCHC RDW Plt Count MPV Neut % (Auto) Lymph % (Auto) [place] % (Auto) Eos % (Auto) Baso % (Auto) Neut # (Auto) Lymph # (Auto) [place] # (Auto) Eos # (Auto) Baso # (Auto) Neutrophils % (Manual) Band Neutrophils % Lymphocytes % (Manual) Monocytes % (Manual) Myelocytes % Platelet Estimate Hypochromasia (manual) Poikilocytosis (manual Basophilic Stippling Anisocytosis (manual) Target Cells Ovalocytes PT INR APTT Puncture Site R rad pCO2 44 pO2 106 H HCO3 27.8 ABG pH 7.42 ABG Total CO2 29.9 H ABG O2 Saturation 99.0 H ABG Base Excess 3.6 H ABG Hemoglobin 8.0 L ABG Carboxyhemoglobin 1.0 POC ABG HHb (Measured) 1.0 ABG Methemoglobin 1.0 [place] Test Pos A-a O2 Difference 338.0 Respiratory Index 3.2 Hgb O2 Saturation 97.0 Vent Mode Prvc Mechanical Rate 20 FiO2 70.0 Tidal Volume 400 PEEP 5 Sodium 147 Potassium 4.3 Chloride 112 H Carbon Dioxide 29 Anion Gap 11 BUN 41 H Creatinine 0.6 L Est GFR ( Amer) > 60 Est GFR (Non-Af Amer) > 60 POC Glucose (mg/dL) 253 H Random Glucose 225 H Calcium 8.1 L Phosphorus 3.3 Magnesium 2.0 Total Bilirubin 1.2 AST 27 ALT 94 H Alkaline Phosphatase 198 H Total Protein 4.3 L Albumin 2.1 L Globulin 2.3 Albumin/Globulin Ratio 0.9 L Stool Occult Blood Blood Type Antibody Screen 02/26/18 02/26/18 02/26/18 05:51 11:32 11:38 WBC 1.4 L* D 1.4 L* RBC 3.04 L 2.78 L Hgb 8.2 L 7.4 L Hct 24.7 L 22.3 L MCV 81.1 80.2 L MCH 26.8 L 26.4 L MCHC 33.0 33.0 RDW 21.4 H 21.6 H Plt Count 18 L* 25 L* MPV 11.2 10.0 Neut % (Auto) 94.7 H 96.2 H Lymph % (Auto) 2.8 L 2.8 L [place] % (Auto) 1.7 0.6 Eos % (Auto) 0.0 0.0 Baso % (Auto) 0.8 0.4 Neut # (Auto) 1.3 L 1.3 L Lymph # (Auto) 0.1 L 0.0 L [place] # (Auto) 0.0 0.0 Eos # (Auto) 0.0 0.0 Baso # (Auto) 0.0 0.0 Neutrophils % (Manual) 74 82 H Band Neutrophils % 20 H* 10 H Lymphocytes % (Manual) 4 L 4 L Monocytes % (Manual) 1 4 Myelocytes % 1 H Platelet Estimate Markedly decreased L Decreased L Hypochromasia (manual) Slight Slight Poikilocytosis (manual Slight Basophilic Stippling Slight Anisocytosis (manual) Moderate Slight Target Cells Slight Slight Ovalocytes Slight PT INR APTT Puncture Site pCO2 pO2 HCO3 ABG pH ABG Total CO2 ABG O2 Saturation ABG Base Excess ABG Hemoglobin ABG Carboxyhemoglobin POC ABG HHb (Measured) ABG Methemoglobin [place] Test A-a O2 Difference Respiratory Index Hgb O2 Saturation Vent Mode Mechanical Rate FiO2 Tidal Volume PEEP Sodium Potassium Chloride Carbon Dioxide Anion Gap BUN Creatinine Est GFR ( Amer) Est GFR (Non-Af Amer) POC Glucose (mg/dL) 198 H Random Glucose Calcium Phosphorus Magnesium Total Bilirubin AST ALT Alkaline Phosphatase Total Protein Albumin Globulin Albumin/Globulin Ratio Stool Occult Blood Blood Type Antibody Screen Attending/Attestation - Attestation I have fully participated in the care of the patient.: Yes I have reviewed all pertinent clinical information: Yes Notes (Text): 02/26/18 18:44 Today: February The Patient was seen and examined at the bedside, Medical records reviewed, and management issues were discussed and formulated with the house staff. I have reviewed all the relevant clinical, laboratory, hemodynamic, radiographic data and medications Events reviewed Pain issues, skin care, head of the bed elevation, glycemic control were addressed. Agree with above resident's assessment and treatment plans of care as transcribed in Dr. Tyler's note. Critically ill patient with acute hypoxemic respiratory failure, metabolic acidosis from septic shock, meltilobar pneumonia Now with worsening renal function Discussed with the family in details diagnosis, treatment plans and alternatives , Continue IN Antibiotics, Levophed GI PPX: Protonix 40 mg IV Daily DVT PPX: No AC due to anemia, thrombocytopenia and high risk of bleeding Code status: Full Total critical care time 52 minutes
--- NOTE | 2018-02-26 15:42 | CP.PCM.PN ---
Subjective - Date & Time of Evaluation Date of Evaluation: 02/26/18 Time of Evaluation: 12:15 Objective - Vital Signs/Intake and Output Vital Signs (last 24 hours): Temp Pulse Resp BP Pulse Ox 98.5 F 100 H 40 H 116/57 L 96 02/26/18 07:24 02/26/18 14:20 02/26/18 14:20 02/26/18 14:20 02/26/18 14:20 Intake and Output: 02/26/18 02/26/18 06:59 18:59 Intake Total 2096.8 1255.6 Balance 2096.8 1255.6 - Medications Medications: Current Medications Acetaminophen (Tylenol 325mg Tab) 650 mg PO Q6 PRN PRN Reason: pain Last Admin: 02/26/18 15:23 Dose: 650 mg Albuterol/Ipratropium (Duoneb 3 Mg/0.5 Mg (3 Ml) Ud) 3 ml INH RQ6 MILLIE Last Admin: 02/26/18 07:08 Dose: 3 ml Hydralazine HCl (Apresoline) 50 mg PO TID MILLIE Last Admin: 02/26/18 13:40 Dose: Not Given Hydralazine HCl (Apresoline) 10 mg IVP Q6H PRN PRN Reason: Other Vancomycin/Sodium Chloride (Vancomycin 1 Gm/Ns 200 Ml) 1 gm in 200 mls @ 166.7 mls/hr IVPB Q12H MILLIE PRN Reason: Protocol Stop: 03/01/18 10:01 Last Admin: 02/26/18 09:46 Dose: 166.7 mls/hr Micafungin Sodium 100 mg/ (Dextrose) 100 mls @ 100 mls/hr IV Q24H MILLIE PRN Reason: Protocol Last Admin: 02/26/18 13:41 Dose: 100 mls/hr Propofol (Diprivan) 1,000 mg in 100 mls @ 1.772 mls/hr IV .Q24H PRN; Protocol; 5 MCG/KG/MIN PRN Reason: TITRATE PER MD ORDER Last Titration: 02/26/18 15:02 Dose: 45 mcg/kg/min, 15.946 mls/hr Norepinephrine Bitartrate 4 mg (/ Sodium Chloride) 250 mls @ 15 mls/hr IV .[id number] PRN; Protocol; 4 MCG/MIN PRN Reason: TITRATE PER MD ORDER Last Titration: 02/26/18 15:08 Dose: 18 mcg/min, 67.5 mls/hr Meropenem 1 gm/ Sodium (Chloride) 100 mls @ 100 mls/hr IVPB Q8H MILLIE PRN Reason: Protocol Last Admin: 02/26/18 11:42 Dose: 100 mls/hr Vasopressin 40 units/ Sodium (Chloride) 40 mls @ 0.6 mls/hr IV .Q24H MILLIE; 0.01 UNITS/MIN PRN Reason: Protocol Insulin Aspart (Novolog) 0 unit SC Q6H MILLIE PRN Reason: Protocol Last Admin: 02/26/18 11:43 Dose: Not Given Lorazepam (Ativan) 1 mg IVP Q4H PRN PRN Reason: Agitation Last Admin: 02/26/18 11:42 Dose: 1 mg Methylprednisolone (Solu-Medrol) 20 mg IVP Q12 MILLIE Last Admin: 02/26/18 09:46 Dose: 20 mg Multivitamins/Vitamin C (Multi-Delyn Liquid) 5 ml PO DAILY MILLIE Last Admin: 02/26/18 09:45 Dose: 5 ml Pantoprazole Sodium (Protonix Susp) 40 mg PO DAILY [facility] Simethicone (Mylicon Chew Tab) 80 mg PO Q8 PRN PRN Reason: GI distress Last Admin: 02/18/18 20:28 Dose: 80 mg Tiotropium [place] (Spiriva) 18 mcg INH RQ24 MILILE Last Admin: 02/26/18 07:08 Dose: 18 mcg - Labs Labs: 02/26/18 11:32 02/26/18 05:51 PT 15.6 SECONDS (9.7-12.2) H 02/25/18 23:48 INR 1.4 02/25/18 23:48 APTT 29 SECONDS (21-34) 02/25/18 23:48 Assessment and Plan (1) Acute respiratory failure with hypoxia Status: Acute (2) CHF (congestive heart failure) Status: Acute (3) COPD exacerbation Status: Acute (4) Dehydration Status: Acute (5) Lymphadenopathy, abdominal Status: Acute (6) 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
--- NOTE | 2018-02-26 17:52 | CP.PCM.PN ---
Subjective - Date & Time of Evaluation Date of Evaluation: 02/26/18 Time of Evaluation: 08:00 - Subjective Subjective: intubated/ sedated still neutropenic afeb blood c/s + strep ( nonenterococcus) Objective - Vital Signs/Intake and Output Vital Signs (last 24 hours): Temp Pulse Resp BP Pulse Ox 98.9 F 101 H 34 H 109/62 98 02/26/18 17:30 02/26/18 17:18 02/26/18 17:18 02/26/18 17:18 02/26/18 17:18 Intake and Output: 02/26/18 02/26/18 06:59 18:59 Intake Total 2096.8 2404.3 Balance 2096.8 2404.3 - Medications Medications: Current Medications Acetaminophen (Tylenol 325mg Tab) 650 mg PO Q6 PRN PRN Reason: pain Last Admin: 02/26/18 15:23 Dose: 650 mg Albuterol/Ipratropium (Duoneb 3 Mg/0.5 Mg (3 Ml) Ud) 3 ml INH RQ6 MILLIE Last Admin: 02/26/18 07:08 Dose: 3 ml Hydralazine HCl (Apresoline) 50 mg PO TID MILLIE Last Admin: 02/26/18 17:07 Dose: Not Given Hydralazine HCl (Apresoline) 10 mg IVP Q6H PRN PRN Reason: Other Vancomycin/Sodium Chloride (Vancomycin 1 Gm/Ns 200 Ml) 1 gm in 200 mls @ 166.7 mls/hr IVPB Q12H MILLIE PRN Reason: Protocol Stop: 03/01/18 10:01 Last Admin: 02/26/18 09:46 Dose: 166.7 mls/hr Micafungin Sodium 100 mg/ (Dextrose) 100 mls @ 100 mls/hr IV Q24H MILLIE PRN Reason: Protocol Last Admin: 02/26/18 13:41 Dose: 100 mls/hr Propofol (Diprivan) 1,000 mg in 100 mls @ 1.772 mls/hr IV .Q24H PRN; Protocol; 5 MCG/KG/MIN PRN Reason: TITRATE PER MD ORDER Last Titration: 02/26/18 15:02 Dose: 45 mcg/kg/min, 15.946 mls/hr Norepinephrine Bitartrate 4 mg (/ Sodium Chloride) 250 mls @ 15 mls/hr IV .[id number] PRN; Protocol; 4 MCG/MIN PRN Reason: TITRATE PER MD ORDER Last Titration: 02/26/18 16:10 Dose: 16 mcg/min, 60 mls/hr Meropenem 1 gm/ Sodium (Chloride) 100 mls @ 100 mls/hr IVPB Q8H MILLIE PRN Reason: Protocol Last Admin: 02/26/18 11:42 Dose: 100 mls/hr Vasopressin 40 units/ Sodium (Chloride) 40 mls @ 0.6 mls/hr IV .Q24H MILLIE; 0.01 UNITS/MIN PRN Reason: Protocol Insulin Aspart (Novolog) 0 unit SC Q6H MILLIE PRN Reason: Protocol Last Admin: 02/26/18 11:43 Dose: Not Given Lorazepam (Ativan) 1 mg IVP Q4H PRN PRN Reason: Agitation Last Admin: 02/26/18 16:29 Dose: 1 mg Methylprednisolone (Solu-Medrol) 20 mg IVP Q12 MILLIE Last Admin: 02/26/18 09:46 Dose: 20 mg Multivitamins/Vitamin C (Multi-Delyn Liquid) 5 ml PO DAILY MILLIE Last Admin: 02/26/18 09:45 Dose: 5 ml Pantoprazole Sodium (Protonix Susp) 40 mg PO DAILY MILLIE Simethicone (Mylicon Chew Tab) 80 mg PO Q8 PRN PRN Reason: GI distress Last Admin: 02/18/18 20:28 Dose: 80 mg Tiotropium [place] (Spiriva) 18 mcg INH RQ24 MILLIE Last Admin: 02/26/18 07:08 Dose: 18 mcg - Labs Labs: 02/26/18 11:32 02/26/18 05:51 PT 15.6 SECONDS (9.7-12.2) H 02/25/18 23:48 INR 1.4 02/25/18 23:48 APTT 29 SECONDS (21-34) 02/25/18 23:48 - Constitutional Appears: Cachectic, Chronically Ill - Head Exam Head Exam: NORMOCEPHALIC - Eye Exam Eye Exam: PERRL. absent: Scleral icterus - ENT Exam ENT Exam: Mucous Membranes Dry - Neck Exam Neck Exam: absent: Lymphadenopathy - Respiratory Exam Respiratory Exam: Decreased Breath Sounds, Rhonchi - Cardiovascular Exam Cardiovascular Exam: REGULAR RHYTHM, +S1, +S2 - GI/Abdominal Exam GI & Abdominal Exam: Distended - Rectal Exam Rectal Exam: Deferred - Exam Exam: NORMAL INSPECTION - Extremities Exam Extremities Exam: absent: Pedal Edema - Back Exam Back Exam: absent: CVA tenderness (L), CVA tenderness (R) - Neurological Exam Neurological Exam: Altered Assessment and Plan (1) CHF (congestive heart failure) Status: Acute (2) COPD exacerbation Status: Acute (3) Dehydration Status: Acute - Assessment and Plan (Free Text) Assessment: cont iv antibiotics vent support neupogen rx prognosis guarded
--- NOTE | 2018-02-26 18:10 | CP.PCM.CON ---
History of Present Illness - History of Present Illness History of Present Illness: Reason for consultation by PMD: acute respiratory failure 72 year old female with history of left breast cancer s/p mastectomy, cervical cancer s/p hysterectomy, newly diagnosed lymphoma, COPD, HTN, DM, anemia sp transfusion. Transferred to ICU for neutropenic fevers after chemo and bilateral pneumonia. Status post transfusion of platelets, patient was intubated yesterday for worsening shortness of breath and severe hypoxemia. Chest x-ray consistent with increasing infiltrate Review of Systems - Review of Systems Systems not reviewed;Unavailable: Intubated Past Patient History - Infectious Disease Hx of Infectious Diseases: None - Past Medical History & Family History Past Medical History?: Yes - Past Social History Smoking Status: Heavy Smoker > 10 Cigarettes Daily Chewing Tobacco Use: No Cigar Use: No - CARDIAC Hx Hypertension: Yes - PULMONARY Hx Chronic Obstructive Pulmonary Disease (COPD): Yes - NEUROLOGICAL Hx Neurological Disorder: No - HEENT Hx HEENT Problems: No - RENAL Hx Chronic Kidney Disease: No - ENDOCRINE/METABOLIC Hx Diabetes Mellitus Type 2: Yes - HEMATOLOGICAL/ONCOLOGICAL Hx Anemia: Yes - INTEGUMENTARY Hx Dermatological Problems: No - MUSCULOSKELETAL/RHEUMATOLOGICAL Hx Osteoporosis: Yes - GASTROINTESTINAL Hx Gall Bladder Disease: Yes - GENITOURINARY/GYNECOLOGICAL Hx Genitourinary Disorders: Yes Hx Cervical Cancer: Yes (Cervical cancer in 1978) Hx Urinary Tract Infection: Yes (TREATED) - PSYCHIATRIC Hx Substance Use: No - SURGICAL HISTORY Hx Surgeries: Yes Hx Hysterectomy: Yes (40 yrs.ago) Hx Mastectomy: Yes (1998-surgery) Other/Comment: 1978-stomack/cervical - ANESTHESIA Hx Anesthesia: Yes Hx Anesthesia Reactions: No Hx Malignant Hyperthermia: No Meds Allergies/Adverse Reactions: Allergies Allergy/AdvReac Type Severity Reaction Status Date / Time strawberry Allergy Intermediate ITCHING Verified 01/28/18 09:03 - Medications Medications: Current Medications Acetaminophen (Tylenol 325mg Tab) 650 mg PO Q6 PRN PRN Reason: pain Last Admin: 02/26/18 15:23 Dose: 650 mg Albuterol/Ipratropium (Duoneb 3 Mg/0.5 Mg (3 Ml) Ud) 3 ml INH RQ6 MILLIE Last Admin: 02/26/18 07:08 Dose: 3 ml Hydralazine HCl (Apresoline) 50 mg PO TID MILLIE Last Admin: 02/26/18 17:07 Dose: Not Given Hydralazine HCl (Apresoline) 10 mg IVP Q6H PRN PRN Reason: Other Vancomycin/Sodium Chloride (Vancomycin 1 Gm/Ns 200 Ml) 1 gm in 200 mls @ 166.7 mls/hr IVPB Q12H MILLIE PRN Reason: Protocol Stop: 03/01/18 10:01 Last Admin: 02/26/18 09:46 Dose: 166.7 mls/hr Micafungin Sodium 100 mg/ (Dextrose) 100 mls @ 100 mls/hr IV Q24H MILLIE PRN Reason: Protocol Last Admin: 02/26/18 13:41 Dose: 100 mls/hr Propofol (Diprivan) 1,000 mg in 100 mls @ 1.772 mls/hr IV .Q24H PRN; Protocol; 5 MCG/KG/MIN PRN Reason: TITRATE PER MD ORDER Last Titration: 02/26/18 15:02 Dose: 45 mcg/kg/min, 15.946 mls/hr Norepinephrine Bitartrate 4 mg (/ Sodium Chloride) 250 mls @ 15 mls/hr IV .[id number] PRN; Protocol; 4 MCG/MIN PRN Reason: TITRATE PER MD ORDER Last Titration: 02/26/18 16:10 Dose: 16 mcg/min, 60 mls/hr Meropenem 1 gm/ Sodium (Chloride) 100 mls @ 100 mls/hr IVPB Q8H MILLIE PRN Reason: Protocol Last Admin: 02/26/18 11:42 Dose: 100 mls/hr Vasopressin 40 units/ Sodium (Chloride) 40 mls @ 0.6 mls/hr IV .Q24H MILLIE; 0.01 UNITS/MIN PRN Reason: Protocol Insulin Aspart (Novolog) 0 unit SC Q6H MILLIE PRN Reason: Protocol Last Admin: 02/26/18 11:43 Dose: Not Given Lorazepam (Ativan) 1 mg IVP Q4H PRN PRN Reason: Agitation Last Admin: 02/26/18 16:29 Dose: 1 mg Methylprednisolone (Solu-Medrol) 20 mg IVP Q12 MILLIE Last Admin: 02/26/18 09:46 Dose: 20 mg Multivitamins/Vitamin C (Multi-Delyn Liquid) 5 ml PO DAILY MILLIE Last Admin: 02/26/18 09:45 Dose: 5 ml Pantoprazole Sodium (Protonix Susp) 40 mg PO DAILY [facility] Simethicone (Mylicon Chew Tab) 80 mg PO Q8 PRN PRN Reason: GI distress Last Admin: 02/18/18 20:28 Dose: 80 mg Tiotropium [place] (Spiriva) 18 mcg INH RQ24 MILLIE Last Admin: 02/26/18 07:08 Dose: 18 mcg Physical Exam - Head Exam Head Exam: ATRAUMATIC, NORMOCEPHALIC - ENT Exam ENT Exam: Mucous Membranes Moist - Respiratory Exam Respiratory Exam: Rales, Respiratory Distress - Cardiovascular Exam Cardiovascular Exam: Tachycardia, REGULAR RHYTHM - GI/Abdominal Exam GI & Abdominal Exam: Normal Bowel Sounds, Soft Results - Vital Signs Recent Vital Signs: Last Vital Signs Temp 98.9 F 02/26/18 17:30 Pulse 99 H 02/26/18 17:48 Resp 37 H 02/26/18 17:48 BP 105/54 L 02/26/18 17:48 Pulse Ox 97 02/26/18 17:48 - Labs Result Diagrams: 02/26/18 11:32 02/26/18 05:51 Labs: Laboratory Results - last 24 hr 02/25/18 02/25/18 02/25/18 17:39 18:30 18:42 WBC 0.9 L* D RBC 2.88 L Hgb 7.4 L Hct 23.0 L MCV 79.6 L MCH 25.8 L MCHC 32.4 L RDW 21.1 H Plt Count 18 L* MPV 10.9 Neut % (Auto) Lymph % (Auto) [place] % (Auto) Eos % (Auto) Baso % (Auto) Neut # (Auto) Lymph # (Auto) [place] # (Auto) Eos # (Auto) Baso # (Auto) Neutrophils % (Manual) Band Neutrophils % Lymphocytes % (Manual) Monocytes % (Manual) Myelocytes % Platelet Estimate Hypochromasia (manual) Poikilocytosis (manual Basophilic Stippling Anisocytosis (manual) Target Cells Ovalocytes PT INR APTT Puncture Site Rba pCO2 40 pO2 212 H HCO3 30.1 H ABG pH 7.49 H ABG Total CO2 31.7 H ABG O2 Saturation 99.3 H ABG Base Excess 6.6 H ABG Hemoglobin 7.9 L ABG Carboxyhemoglobin 1.0 POC ABG HHb (Measured) 0.7 ABG Methemoglobin 1.4 Chepe Test Na A-a O2 Difference 451.0 Respiratory Index 2.1 Hgb O2 Saturation 97.0 Vent Mode Prvc Mechanical Rate 14 FiO2 100.0 Tidal Volume 450 PEEP 5 Sodium Potassium Chloride Carbon Dioxide Anion Gap BUN Creatinine Est GFR ( Amer) Est GFR (Non-Af Amer) POC Glucose (mg/dL) 310 H Random Glucose Calcium Phosphorus Magnesium Total Bilirubin AST ALT Alkaline Phosphatase Total Protein Albumin Globulin Albumin/Globulin Ratio Stool Occult Blood Blood Type Antibody Screen 02/25/18 02/25/18 02/25/18 22:36 23:41 23:48 WBC RBC Hgb Hct MCV MCH MCHC RDW Plt Count MPV Neut % (Auto) Lymph % (Auto) [place] % (Auto) Eos % (Auto) Baso % (Auto) Neut # (Auto) Lymph # (Auto) [place] # (Auto) Eos # (Auto) Baso # (Auto) Neutrophils % (Manual) Band Neutrophils % Lymphocytes % (Manual) Monocytes % (Manual) Myelocytes % Platelet Estimate Hypochromasia (manual) Poikilocytosis (manual Basophilic Stippling Anisocytosis (manual) Target Cells Ovalocytes PT 15.6 H INR 1.4 APTT 29 Puncture Site pCO2 pO2 HCO3 ABG pH ABG Total CO2 ABG O2 Saturation ABG Base Excess ABG Hemoglobin ABG Carboxyhemoglobin POC ABG HHb (Measured) ABG Methemoglobin [place] Test A-a O2 Difference Respiratory Index Hgb O2 Saturation Vent Mode Mechanical Rate FiO2 Tidal Volume PEEP Sodium Potassium Chloride Carbon Dioxide Anion Gap BUN Creatinine Est GFR ( Amer) Est GFR (Non-Af Amer) POC Glucose (mg/dL) 190 H Random Glucose Calcium Phosphorus Magnesium Total Bilirubin AST ALT Alkaline Phosphatase Total Protein Albumin Globulin Albumin/Globulin Ratio Stool Occult Blood Positive H Blood Type Antibody Screen 02/26/18 02/26/18 02/26/18 00:08 05:15 05:26 WBC RBC Hgb Hct MCV MCH MCHC RDW Plt Count MPV Neut % (Auto) Lymph % (Auto) [place] % (Auto) Eos % (Auto) Baso % (Auto) Neut # (Auto) Lymph # (Auto) [place] # (Auto) Eos # (Auto) Baso # (Auto) Neutrophils % (Manual) Band Neutrophils % Lymphocytes % (Manual) Monocytes % (Manual) Myelocytes % Platelet Estimate Hypochromasia (manual) Poikilocytosis (manual Basophilic Stippling Anisocytosis (manual) Target Cells Ovalocytes PT INR APTT Puncture Site R rad pCO2 44 pO2 106 H HCO3 27.8 ABG pH 7.42 ABG Total CO2 29.9 H ABG O2 Saturation 99.0 H ABG Base Excess 3.6 H ABG Hemoglobin 8.0 L ABG Carboxyhemoglobin 1.0 POC ABG HHb (Measured) 1.0 ABG Methemoglobin 1.0 Chepe Test Pos A-a O2 Difference 338.0 Respiratory Index 3.2 Hgb O2 Saturation 97.0 Vent Mode Prvc Mechanical Rate 20 FiO2 70.0 Tidal Volume 400 PEEP 5 Sodium Potassium Chloride Carbon Dioxide Anion Gap BUN Creatinine Est GFR ( Amer) Est GFR (Non-Af Amer) POC Glucose (mg/dL) 253 H Random Glucose Calcium Phosphorus Magnesium Total Bilirubin AST ALT Alkaline Phosphatase Total Protein Albumin Globulin Albumin/Globulin Ratio Stool Occult Blood Blood Type B POSITIVE Antibody Screen Negative 02/26/18 02/26/18 02/26/18 05:51 05:51 11:32 WBC 1.4 L* D 1.4 L* RBC 3.04 L 2.78 L Hgb 8.2 L 7.4 L Hct 24.7 L 22.3 L MCV 81.1 80.2 L MCH 26.8 L 26.4 L MCHC 33.0 33.0 RDW 21.4 H 21.6 H Plt Count 18 L* 25 L* MPV 11.2 10.0 Neut % (Auto) 94.7 H 96.2 H Lymph % (Auto) 2.[address] [place] % (Auto) 1.7 0.6 Eos % (Auto) 0.0 0.0 Baso % (Auto) 0.8 0.4 Neut # (Auto) 1.3 L 1.3 L Lymph # (Auto) 0.[address] [place] # (Auto) 0.0 0.0 Eos # (Auto) 0.0 0.0 Baso # (Auto) 0.0 0.0 Neutrophils % (Manual) 74 82 H Band Neutrophils % 20 H* 10 H Lymphocytes % (Manual) 4 L 4 L Monocytes % (Manual) 1 4 Myelocytes % 1 H Platelet Estimate Markedly decreased L Decreased L Hypochromasia (manual) Slight Slight Poikilocytosis (manual Slight Basophilic Stippling Slight Anisocytosis (manual) Moderate Slight Target Cells Slight Slight Ovalocytes Slight PT INR APTT Puncture Site pCO2 pO2 HCO3 ABG pH ABG Total CO2 ABG O2 Saturation ABG Base Excess ABG Hemoglobin ABG Carboxyhemoglobin POC ABG HHb (Measured) ABG Methemoglobin Chepe Test A-a O2 Difference Respiratory Index Hgb O2 Saturation Vent Mode Mechanical Rate FiO2 Tidal Volume PEEP Sodium 147 Potassium 4.3 Chloride 112 H Carbon Dioxide 29 Anion Gap 11 BUN 41 H Creatinine 0.6 L Est GFR ( Amer) > 60 Est GFR (Non-Af Amer) > 60 POC Glucose (mg/dL) Random Glucose 225 H Calcium 8.1 L Phosphorus 3.3 Magnesium 2.0 Total Bilirubin 1.2 AST 27 ALT 94 H Alkaline Phosphatase 198 H Total Protein 4.3 L Albumin 2.1 L Globulin 2.3 Albumin/Globulin Ratio 0.9 L Stool Occult Blood Blood Type Antibody Screen 02/26/18 11:38 WBC RBC Hgb Hct MCV MCH MCHC RDW Plt Count MPV Neut % (Auto) Lymph % (Auto) [place] % (Auto) Eos % (Auto) Baso % (Auto) Neut # (Auto) Lymph # (Auto) [place] # (Auto) Eos # (Auto) Baso # (Auto) Neutrophils % (Manual) Band Neutrophils % Lymphocytes % (Manual) Monocytes % (Manual) Myelocytes % Platelet Estimate Hypochromasia (manual) Poikilocytosis (manual Basophilic Stippling Anisocytosis (manual) Target Cells Ovalocytes PT INR APTT Puncture Site pCO2 pO2 HCO3 ABG pH ABG Total CO2 ABG O2 Saturation ABG Base Excess ABG Hemoglobin ABG Carboxyhemoglobin POC ABG HHb (Measured) ABG Methemoglobin Chepe Test A-a O2 Difference Respiratory Index Hgb O2 Saturation Vent Mode Mechanical Rate FiO2 Tidal Volume PEEP Sodium Potassium Chloride Carbon Dioxide Anion Gap BUN Creatinine Est GFR ( Amer) Est GFR (Non-Af Amer) POC Glucose (mg/dL) 198 H Random Glucose Calcium Phosphorus Magnesium Total Bilirubin AST ALT Alkaline Phosphatase Total Protein Albumin Globulin Albumin/Globulin Ratio Stool Occult Blood Blood Type Antibody Screen Assessment & Plan (1) Acute respiratory failure with hypoxia Assessment and Plan: secondary to bilateral pneumonia Continue IV antibiotics Tracheal aspirate for culture and sens IV sedation Pressors support NG tube feeding Followup ABG and chest x-ray Status: Acute
[2018-02-27] MEDS: (Novolog) Insulin Aspart, Recombinant 100 u/ml 10 ml vial SC SCH ×4 (00:31→18:31)
[2018-02-27] MEDS: Albuterol-Ipratrop 3 mg / 0.5 (3 ml) UD INH SCH ×4 (01:14→21:21)
[2018-02-27] MEDS: Propofol 10 mg/ml 1,000 MG/100 ML VIAL IV PRN ×4 (03:30→21:30)
[2018-02-27] MEDS: Meropenem 1 GM in Sodium Chloride 0.9% 100 ML IVPB SCH ×3 (04:18→19:17)
[2018-02-27] MEDS ORDERED: Albumin Human 25% (12.5 gm/50 ml) IV ONE ×2 (04:59→13:56)
[2018-02-27 05:56] LABS: ABG ALLEN TEST YES; ARTERIAL BLOOD GAS HCO3 24.3 mmol/L (21-28); ARTERIAL BLOOD GAS O2 SAT 93.7 % (95-98); ARTERIAL BLOOD GAS PCO2 39 mm/Hg (35-45); ARTERIAL BLOOD GAS PO2 56 mm/Hg (80-100); ARTERIAL BLOOD GAS TCO2 25.4 mmol/L (22-28)
[2018-02-27] MEDS: Sodium Chloride 0.9% 1,000 ML IV SCH ×2 (06:30→17:30)
[2018-02-27 06:52] LABS: BASO % 0.2 % (0.0-2.0); EOS % 0.1 % (0.0-4.0); HEMOGLOBIN 8.8 g/dL (11.0-16.0); LYMPH % 1.8 % (20.0-40.0); MEAN CELL VOLUME 81.1 fL (81.0-99.0); MEAN CORPUSCULAR HEMOGLOBIN 26.8 pg (27.0-31.0); MEAN CORPUSCULAR HGB CONC 33.1 g/dL (33.0-37.0); MEAN PLATELET VOLUME 9.6 fL (7.2-11.7); MONO % 1.5 % (0.0-10.0); NEUT # 2.3 K/uL (1.8-7.0); NEUT % 96.4 % (50.0-75.0); NRBC % 2.3 % (0.0-2.0); PLATELET COUNT 31 K/uL (130-400); RBC 3.28 Mil/uL (3.80-5.20); RED CELL DISTRIBUTION WIDTH 19.8 % (11.5-14.5); WHITE BLOOD COUNT 2.4 K/uL (4.8-10.8)
[2018-02-27 06:56] LABS: SQUAMOUS EPITHIAL < 1 /hpf (0-5); URINE BACTERIA OCC (<OCC); URINE BILIRUBIN NEGATIVE (NEGATIVE); URINE BLOOD 2+ (NEGATIVE); URINE CLARITY Hazy (Clear); URINE COLOR Amber (YELLOW); URINE GLUCOSE (UA) NORMAL (Normal); URINE LEUKOCYTE ESTERASE NEG Leu/uL (Negative); URINE PROTEIN 1+ mg/dL (NEGATIVE); URINE UROBILINOGEN NORMAL mg/dL (0.2-1.0); WBC CLUMPS FEW /hpf
[2018-02-27 07:06] LABS: ALB/GLOB RATIO 0.9 (1.0-2.1); ALBUMIN 2.1 g/dL (3.5-5.0); AST/SGOT 39 U/L (14-36); BLOOD UREA NITROGEN 55 mg/dL (7-17); CALCIUM 7.7 mg/dl (8.6-10.4); GFR NON-AFRICAN AMERICAN 55
[2018-02-27 07:07] LABS: ALT/SGPT 79 U/L (9-52)
[2018-02-27] MEDS: Tiotropium 18 mcg Cap For Inhalation INH SCH (07:45)
[2018-02-27 08:49] LABS: BANDS 13 % (0-2); LYMPHOCYTE 2 % (20-40); MONOCYTE 3 % (0-10); NEUTROPHIL 82 % (50-75); TOTAL CELLS COUNTED 100
[2018-02-27 08:50] LABS: ANISOCYTOSIS SLIGHT; HYPOCHROMIC SLIGHT; OVALOCYTES SLIGHT; PLATELET ESTIMATE DECREASED (NORMAL); POLYCHROMIC SLIGHT
--- NOTE | 2018-02-27 09:10 | RAD ---
Chest x-ray single frontal view History: Intubated. Comparison: 02/26/2018 Findings: Lines and tubes in stable position. Persistent prominent dense pleural parenchymal opacities seen throughout both lungs. Biapical pleural thickening with upper lobe granulomatous changes. Calcification at the aortic knob. Top normal heart size. Degenerative changes in the spine and shoulders. Impression: Lines and tubes in stable position. Persistent prominent dense pleural parenchymal opacities seen throughout both lungs. Biapical pleural thickening with upper lobe granulomatous changes. Calcification at the aortic knob.
[2018-02-27] MEDS: MethylPREDNISolone 40 mg Vial IVP SCH (09:26)
[2018-02-27] MEDS: Multiple Vitamins Oral Solution PO SCH (09:26)
[2018-02-27] MEDS: Pantoprazole 40 mg Susp UD PO SCH (09:26)
[2018-02-27] MEDS: Vancomycin 1 gm/NS 200 ml 1 GM/200 ML BAG IVPB SCH ×2 (09:27→22:41)
--- NOTE | 2018-02-27 10:06 | CP.PCM.PN ---
Subjective - Date & Time of Evaluation Date of Evaluation: 02/27/18 Time of Evaluation: 14:15 - Subjective Subjective: clinically same Objective - Vital Signs/Intake and Output Vital Signs (last 24 hours): Temp Pulse Resp BP Pulse Ox 97.5 F L 73 28 H 118/65 96 02/27/18 08:00 02/27/18 09:29 02/27/18 09:29 02/27/18 09:29 02/27/18 09:29 Intake and Output: 02/27/18 02/27/18 06:59 18:59 Intake Total 2487 1123.4 Output Total 1300 62 Balance 1187 1061.4 - Medications Medications: Current Medications Acetaminophen (Tylenol 325mg Tab) 650 mg PO Q6 PRN PRN Reason: pain Last Admin: 02/26/18 15:23 Dose: 650 mg Albuterol/Ipratropium (Duoneb 3 Mg/0.5 Mg (3 Ml) Ud) 3 ml INH RQ6 MILLIE Last Admin: 02/27/18 07:46 Dose: 3 ml Vancomycin/Sodium Chloride (Vancomycin 1 Gm/Ns 200 Ml) 1 gm in 200 mls @ 166.7 mls/hr IVPB Q12H MILLIE PRN Reason: Protocol Stop: 03/01/18 10:01 Last Admin: 02/27/18 09:27 Dose: 166.7 mls/hr Micafungin Sodium 100 mg/ (Dextrose) 100 mls @ 100 mls/hr IV Q24H MILLIE PRN Reason: Protocol Last Admin: 02/26/18 13:41 Dose: 100 mls/hr Propofol (Diprivan) 1,000 mg in 100 mls @ 1.772 mls/hr IV .Q24H PRN; Protocol; 5 MCG/KG/MIN PRN Reason: TITRATE PER MD ORDER Last Admin: 02/27/18 07:55 Dose: 45 mcg/kg/min, 15.946 mls/hr Norepinephrine Bitartrate 4 mg (/ Sodium Chloride) 250 mls @ 15 mls/hr IV .[id number] PRN; Protocol; 4 MCG/MIN PRN Reason: TITRATE PER MD ORDER Last Titration: 02/27/18 10:02 Dose: 11 mcg/min, 41.25 mls/hr Meropenem 1 gm/ Sodium (Chloride) 100 mls @ 100 mls/hr IVPB Q8H MILLIE PRN Reason: Protocol Last Admin: 02/27/18 04:18 Dose: 100 mls/hr Vasopressin 40 units/ Sodium (Chloride) 40 mls @ 0.6 mls/hr IV .Q24H MILLIE; 0.01 UNITS/MIN PRN Reason: Protocol Last Admin: 02/26/18 21:21 Dose: Not Given Sodium Chloride (Sodium Chloride 0.9%) 1,000 mls @ 100 mls/hr IV .Q10H MILLIE Last Admin: 02/27/18 06:30 Dose: 100 mls/hr Insulin Aspart (Novolog) 0 unit SC Q6H MILLIE PRN Reason: Protocol Last Admin: 02/27/18 05:21 Dose: 2 u Lorazepam (Ativan) 1 mg IVP Q4H PRN PRN Reason: Agitation Last Admin: 02/26/18 23:30 Dose: 1 mg Methylprednisolone (Solu-Medrol) 20 mg IVP Q12 MILLIE Last Admin: 02/27/18 09:26 Dose: 20 mg Multivitamins/Vitamin C (Multi-Delyn Liquid) 5 ml PO DAILY MILLIE Last Admin: 02/27/18 09:26 Dose: 5 ml Pantoprazole Sodium (Protonix Susp) 40 mg PO DAILY MILLIE Last Admin: 02/27/18 09:26 Dose: 40 mg Simethicone (Mylicon Chew Tab) 80 mg PO Q8 PRN PRN Reason: GI distress Last Admin: 02/18/18 20:28 Dose: 80 mg - Labs Labs: 02/27/18 06:23 02/27/18 06:23 PT 15.6 SECONDS (9.7-12.2) H 02/25/18 23:48 INR 1.4 02/25/18 23:48 APTT 29 SECONDS (21-34) 02/25/18 23:48 - Constitutional Appears: Well - Head Exam Head Exam: ATRAUMATIC, NORMAL INSPECTION, NORMOCEPHALIC - Eye Exam Eye Exam: EOMI, Normal appearance, PERRL Pupil Exam: NORMAL ACCOMODATION, PERRL - ENT Exam ENT Exam: Mucous Membranes Moist, Normal Exam - Neck Exam Neck Exam: Full ROM, Normal Inspection. absent: Lymphadenopathy - Respiratory Exam Respiratory Exam: Decreased Breath Sounds - Cardiovascular Exam Cardiovascular Exam: REGULAR RHYTHM, +S1, +S2 - GI/Abdominal Exam GI & Abdominal Exam: Soft, Hypoactive Bowel Sounds - Rectal Exam Rectal Exam: Deferred Assessment and Plan (1) Acute respiratory failure with hypoxia Status: Acute (2) CHF (congestive heart failure) Status: Acute (3) COPD exacerbation Status: Acute (4) Dehydration Status: Acute (5) Lymphadenopathy, abdominal Status: Acute (6) 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
--- NOTE | 2018-02-27 10:08 | CP.PCM.PN ---
Subjective - Date & Time of Evaluation Date of Evaluation: 02/27/18 Time of Evaluation: 08:30 - Subjective Subjective: patient seen and examined in the intensive care unit Intubated on ventilatory support FiO2 70% with saturation in the upper 90s Sedated on Diprivan On pressors NG tube feeding at 10 cc an hour Objective - Vital Signs/Intake and Output Vital Signs (last 24 hours): Temp Pulse Resp BP Pulse Ox 97.5 F L 73 28 H 118/65 96 02/27/18 08:00 02/27/18 09:29 02/27/18 09:29 02/27/18 09:29 02/27/18 09:29 Intake and Output: 02/27/18 02/27/18 06:59 18:59 Intake Total 2487 1123.4 Output Total 1300 62 Balance 1187 1061.4 - Medications Medications: Current Medications Acetaminophen (Tylenol 325mg Tab) 650 mg PO Q6 PRN PRN Reason: pain Last Admin: 02/26/18 15:23 Dose: 650 mg Albuterol/Ipratropium (Duoneb 3 Mg/0.5 Mg (3 Ml) Ud) 3 ml INH RQ6 MILLIE Last Admin: 02/27/18 07:46 Dose: 3 ml Vancomycin/Sodium Chloride (Vancomycin 1 Gm/Ns 200 Ml) 1 gm in 200 mls @ 166.7 mls/hr IVPB Q12H MILLIE PRN Reason: Protocol Stop: 03/01/18 10:01 Last Admin: 02/27/18 09:27 Dose: 166.7 mls/hr Micafungin Sodium 100 mg/ (Dextrose) 100 mls @ 100 mls/hr IV Q24H MILLIE PRN Reason: Protocol Last Admin: 02/26/18 13:41 Dose: 100 mls/hr Propofol (Diprivan) 1,000 mg in 100 mls @ 1.772 mls/hr IV .Q24H PRN; Protocol; 5 MCG/KG/MIN PRN Reason: TITRATE PER MD ORDER Last Admin: 02/27/18 07:55 Dose: 45 mcg/kg/min, 15.946 mls/hr Norepinephrine Bitartrate 4 mg (/ Sodium Chloride) 250 mls @ 15 mls/hr IV .[id number] PRN; Protocol; 4 MCG/MIN PRN Reason: TITRATE PER MD ORDER Last Titration: 02/27/18 10:02 Dose: 11 mcg/min, 41.25 mls/hr Meropenem 1 gm/ Sodium (Chloride) 100 mls @ 100 mls/hr IVPB Q8H MILLIE PRN Reason: Protocol Last Admin: 02/27/18 04:18 Dose: 100 mls/hr Vasopressin 40 units/ Sodium (Chloride) 40 mls @ 0.6 mls/hr IV .Q24H MILLIE; 0.01 UNITS/MIN PRN Reason: Protocol Last Admin: 02/26/18 21:21 Dose: Not Given Sodium Chloride (Sodium Chloride 0.9%) 1,000 mls @ 100 mls/hr IV .Q10H MILLIE Last Admin: 02/27/18 06:30 Dose: 100 mls/hr Insulin Aspart (Novolog) 0 unit SC Q6H MILLIE PRN Reason: Protocol Last Admin: 02/27/18 05:21 Dose: 2 u Lorazepam (Ativan) 1 mg IVP Q4H PRN PRN Reason: Agitation Last Admin: 02/26/18 23:30 Dose: 1 mg Methylprednisolone (Solu-Medrol) 20 mg IVP Q12 MILLIE Last Admin: 02/27/18 09:26 Dose: 20 mg Multivitamins/Vitamin C (Multi-Delyn Liquid) 5 ml PO DAILY MILLIE Last Admin: 02/27/18 09:26 Dose: 5 ml Pantoprazole Sodium (Protonix Susp) 40 mg PO DAILY MILLIE Last Admin: 02/27/18 09:26 Dose: 40 mg Simethicone (Mylicon Chew Tab) 80 mg PO Q8 PRN PRN Reason: GI distress Last Admin: 02/18/18 20:28 Dose: 80 mg - Labs Labs: 02/27/18 06:23 02/27/18 06:23 PT 15.6 SECONDS (9.7-12.2) H 02/25/18 23:48 INR 1.4 02/25/18 23:48 APTT 29 SECONDS (21-34) 02/25/18 23:48 - Head Exam Head Exam: ATRAUMATIC, NORMOCEPHALIC - ENT Exam ENT Exam: Mucous Membranes Moist - Neck Exam Neck Exam: Normal Inspection - Respiratory Exam Respiratory Exam: Rales - Cardiovascular Exam Cardiovascular Exam: REGULAR RHYTHM - GI/Abdominal Exam GI & Abdominal Exam: Soft, Normal Bowel Sounds Assessment and Plan (1) Acute respiratory failure with hypoxia Assessment & Plan: Continue antibiotics for pneumonia Chest x-ray reviewed Continue sedation Reduce FiO2 as tolerated Increase feeding as tolerated Case discussed with family Status: Acute
--- NOTE | 2018-02-27 11:12 | CP.CCUPN ---
<Nickolas Tyler - Last Filed: 02/27/18 12:41> CCU Subjective - Physician Review Subjective (Free Text): ICU Progress note Patient seen and examined at bedside. Patient is intubated and unable to provide history. Daughter present at bedside. CCU Objective - Vital Signs / Intake & Output Vital Signs (Last 4 hours): Vital Signs Temp Pulse Resp BP Pulse Ox 02/27/18 10:59 67 18 112/55 L 97 02/27/18 10:30 81 10 L 106/62 86 L 02/27/18 10:00 78 26 H 124/61 02/27/18 09:29 73 28 H 118/65 96 02/27/18 09:18 80 29 H 120/60 94 L 02/27/18 08:59 77 31 H 120/60 97 02/27/18 08:29 81 29 H 115/57 L 96 02/27/18 08:00 97.5 F L 02/27/18 07:59 81 30 H 106/55 L 97 Intake and Output (Last 8hrs): Intake & Output 02/26/18 02/27/18 02/27/18 22:59 06:59 14:59 Intake Total 2260.5 1108 1213.4 Output Total 200 1100 62 Balance 2060.5 8 1151.4 Weight 130 lb 6.4 oz Intake: IV 600 350 480 Intake, IV Amount 1285.5 758 703.4 Right Distal Port Port-A- 128 128 64 Cath Right Hand 670 150 Right Port-A-Cath 487.5 480 206.4 Right Portocath Y port 433 Tube Feeding 50 30 Blood Product 325 Red Blood Cells Cpd As1 325 Lr Unit [id number] Output: Urine 200 1100 62 Urethral (Soto) 62 Urine, Voided 200 1100 Other: # Voids Urine, Voided 1 - Physical Exam Head: Positive for: Atraumatic, Normocephalic Mouth: Positive for: Moist Mucous Membranes, Other (Intubated, ETT in place) Respiratory/Chest: Positive for: Decreased Breath Sounds Cardiovascular: Positive for: Normal S1, S2, Other (portacath R chest) Abdomen: Positive for: Normal Bowel Sounds. Negative for: Tenderness, Distention, Peritoneal Signs Upper Extremity: Positive for: NORMAL PULSES (radial pulses ) Lower Extremity: Positive for: Other (scds in place). Negative for: Edema Skin: Positive for: Warm, Dry - Medications Active Medications: Active Medications Generic Name Dose Route Start Last Admin Trade Name Freq PRN Reason Stop Dose Admin Acetaminophen 650 mg 02/14/18 20:48 02/26/18 15:23 Tylenol 325mg Tab PO 650 mg Q6 PRN Administration pain Albuterol/Ipratropium 3 ml 02/24/18 08:00 02/27/18 07:46 Duoneb 3 Mg/0.5 Mg (3 Ml) Ud INH 3 ml RQ6 MILLIE Administration Vancomycin/Sodium Chloride 1 gm in 200 mls @ 166.7 mls/hr 02/24/18 10:00 01/07 09:27 Vancomycin 1 Gm/Ns 200 Ml IVPB 03/01/18 10:01 166.7 mls/hr Q12H MILLIE Administration Protocol Micafungin Sodium 100 mg/ 100 mls @ 100 mls/hr 02/24/18 13:00 02/26/18 13:41 Dextrose IV 100 mls/hr Q24H MILLIE Administration Protocol Propofol 1,000 mg in 100 mls @ 1.772 mls/hr 02/25/18 15:35 02/27/18 11:08 Diprivan IV 40 mcg/kg/min .Q24H PRN 14.174 mls/hr TITRATE PER MD ORDER Titration Protocol 5 MCG/KG/MIN Norepinephrine Bitartrate 4 mg 250 mls @ 15 mls/hr 02/25/18 16:40 02/27/18 11 :10 / Sodium Chloride IV 10 mcg/min .[id number] PRN 37.5 mls/hr TITRATE PER MD ORDER Titration Protocol 4 MCG/MIN Meropenem 1 gm/ Sodium 100 mls @ 100 mls/hr 02/25/18 20:00 02/27/18 04:18 Chloride IVPB 100 mls/hr Q8H MILLIE Administration Protocol Vasopressin 40 units/ Sodium 40 mls @ 0.6 mls/hr 02/26/18 11:15 02/26/18 21: 21 Chloride IV Not Given .Q24H MILLIE Protocol 0.01 UNITS/MIN Sodium Chloride 1,000 mls @ 100 mls/hr 02/27/18 06:30 02/27/18 06:30 Sodium Chloride 0.9% IV 100 mls/hr .Q10H MILLIE Administration Insulin Aspart 0 unit 02/25/18 18:00 02/27/18 05:21 Novolog SC 2 u Q6H MILLIE Administration Protocol Lorazepam 1 mg 02/26/18 11:01 02/26/18 23:30 Ativan IVP 1 mg Q4H PRN Administration Agitation Methylprednisolone 20 mg 02/25/18 22:00 02/27/18 09:26 Solu-Medrol IVP 20 mg Q12 MILLIE Administration Multivitamins/Vitamin C 5 ml 02/24/18 10:15 02/27/18 09:26 Multi-Delyn Liquid PO 5 ml DAILY MILLIE Administration Pantoprazole Sodium 40 mg 02/27/18 10:00 02/27/18 09:26 Protonix Susp PO 40 mg DAILY MILLIE Administration Simethicone 80 mg 02/17/18 20:31 02/18/18 20:28 Mylicon Chew Tab PO 80 mg Q8 PRN Administration GI distress - Patient Studies Lab Studies: Microbiology Studies 02/25/18 15:46 Gram Stain - Final Sputum Induced Sputum Culture - Preliminary Methicillin Resistant S Aureus 02/23/18 21:45 S.aureus & Coag-Neg Staph PNA FISH - Final Blood-Venous Blood Culture - Preliminary Streptococcus Salivarius Gram Stain - Final 02/23/18 21:15 Blood Culture - Preliminary Blood-Venous Streptococcus Salivarius Gram Stain - Final 02/25/18 05:55 Blood Culture - Preliminary Blood-Thru Central Line NO GROWTH AFTER 48 HOURS 02/25/18 05:55 Blood Culture - Preliminary Blood-Thru Central Line NO GROWTH AFTER 48 HOURS Lab Studies 02/27/18 02/27/18 02/27/18 Range/Units 06:34 06:23 06:23 WBC 2.4 L D (4.8-10.8) K/uL RBC 3.28 L (3.80-5.20) Mil/uL Hgb 8.8 L (11.0-16.0) g/dL Hct 26.6 L (34.0-47.0) % MCV 81.1 (81.0-99.0) fL MCH 26.8 L (27.0-31.0) pg MCHC 33.1 (33.0-37.0) g/dL RDW 19.8 H (11.5-14.5) % Plt Count 31 L (130-400) K/uL MPV 9.6 (7.2-11.7) fL Neut % (Auto) 96.4 H (50.0-75.0) % Lymph % (Auto) 1.8 L (20.0-40.0) % Peach % (Auto) 1.5 (0.0-10.0) % Eos % (Auto) 0.1 (0.0-4.0) % Baso % (Auto) 0.2 (0.0-2.0) % Neut # (Auto) 2.3 (1.8-7.0) K/uL Lymph # (Auto) 0.0 L (1.0-4.3) K/uL Peach # (Auto) 0.0 (0.0-0.8) K/uL Eos # (Auto) 0.0 (0.0-0.7) K/uL Baso # (Auto) 0.0 (0.0-0.2) K/uL Neutrophils % (Manual) 82 H (50-75) % Band Neutrophils % 13 H* (0-2) % Lymphocytes % (Manual) 2 L (20-40) % Monocytes % (Manual) 3 (0-10) % Platelet Estimate Decreased L (NORMAL) Polychromasia Slight Hypochromasia (manual) Slight Poikilocytosis (manual Basophilic Stippling Anisocytosis (manual) Slight Target Cells Ovalocytes Slight Puncture Site pCO2 (35-45) mm/Hg pO2 (80-100) mm/Hg HCO3 (21-28) mmol/L ABG pH (7.35-7.45) ABG Total CO2 (22-28) mmol/L ABG O2 Saturation (95-98) % ABG Base Excess (-2.0-3.0) mmol/L Chepe Test ABG Potassium (3.6-5.2) mmol/L A-a O2 Difference mm/Hg Respiratory Index Sodium 149 H (132-148) mmol/l Chloride 113 H (98-107) mmol/L Glucose (65-105) mg/dl Lactate (0.7-2.1) mmol/L Vent Mode Mechanical Rate FiO2 % Tidal Volume PEEP Potassium 3.9 (3.6-5.2) mmol/L Carbon Dioxide 25 (22-30) mmol/L Anion Gap 14 (10-20) BUN 55 H (7-17) mg/dL Creatinine 1.0 (0.7-1.2) mg/dL Est GFR ( Amer) > 60 Est GFR (Non-Af Amer) 55 POC Glucose (mg/dL) (65-110) mg/dL Random Glucose 237 H (65-105) mg/dL Calcium 7.7 L (8.6-10.4) mg/dl Phosphorus 3.8 (2.5-4.5) mg/dL Magnesium 2.1 (1.6-2.3) mg/dL Total Bilirubin 1.2 (0.2-1.3) mg/dL AST 39 H D (14-36) U/L ALT 79 H (9-52) U/L Alkaline Phosphatase 207 H (38-126) U/L Total Protein 4.5 L (6.3-8.3) g/dL Albumin 2.1 L (3.5-5.0) g/dL Globulin 2.4 (2.2-3.9) gm/dL Albumin/Globulin Ratio 0.9 L (1.0-2.1) Arterial Blood Potassium (3.6-5.2) mmol/L Urine Color Linda (YELLOW) Urine Clarity Hazy (Clear) Urine pH 5.0 (5.0-8.0) Ur Specific [place] 1.018 (1.003-1.030) Urine Protein 1+ H (NEGATIVE) mg/dL Urine Glucose (UA) Normal (Normal) mg/dL Urine Ketones Negative (NEGATIVE) mg/dL Urine Blood 2+ H (NEGATIVE) Urine Nitrate Positive H (NEGATIVE) Urine Bilirubin Negative (NEGATIVE) Urine Urobilinogen Normal (0.2-1.0) mg/dL Ur Leukocyte Esterase Neg (Negative) Carrie/uL Urine WBC (Auto) 31 H (0-5) /hpf Urine RBC (Auto) 31 H (0-3) /hpf Urine WBC Clumps (Auto) Few H (NONE) /hpf Ur Squamous Epith Cells < 1 (0-5) /hpf Urine Bacteria Occ H (<OCC) Urine Yeast (Budding) Many H (NEGATIVE) /hpf Blood Type Antibody Screen 02/27/18 02/27/18 02/26/18 Range/Units 05:33 05:14 23:49 WBC (4.8-10.8) K/uL RBC (3.80-5.20) Mil/uL Hgb (11.0-16.0) g/dL Hct (34.0-47.0) % MCV (81.0-99.0) fL MCH (27.0-31.0) pg MCHC (33.0-37.0) g/dL RDW (11.5-14.5) % Plt Count (130-400) K/uL MPV (7.2-11.7) fL Neut % (Auto) (50.0-75.0) % Lymph % (Auto) (20.0-40.0) % Peach % (Auto) (0.0-10.0) % Eos % (Auto) (0.0-4.0) % Baso % (Auto) (0.0-2.0) % Neut # (Auto) (1.8-7.0) K/uL Lymph # (Auto) (1.0-4.3) K/uL Peach # (Auto) (0.0-0.8) K/uL Eos # (Auto) (0.0-0.7) K/uL Baso # (Auto) (0.0-0.2) K/uL Neutrophils % (Manual) (50-75) % Band Neutrophils % (0-2) % Lymphocytes % (Manual) (20-40) % Monocytes % (Manual) (0-10) % Platelet Estimate (NORMAL) Polychromasia Hypochromasia (manual) Poikilocytosis (manual Basophilic Stippling Anisocytosis (manual) Target Cells Ovalocytes Puncture Site Rra pCO2 39 (35-45) mm/Hg pO2 56 L (80-100) mm/Hg HCO3 24.3 (21-28) mmol/L ABG pH 7.40 (7.35-7.45) ABG Total CO2 25.4 (22-28) mmol/L ABG O2 Saturation 93.7 L (95-98) % ABG Base Excess -0.5 (-2.0-3.0) mmol/L Chepe Test Yes ABG Potassium 3.8 (3.6-5.2) mmol/L A-a O2 Difference 394.0 mm/Hg Respiratory Index 7.0 Sodium 148.0 (132-148) mmol/l Chloride 117.0 H (98-107) mmol/L Glucose 240 H (65-105) mg/dl Lactate 1.2 (0.7-2.1) mmol/L Vent Mode Prvc Mechanical Rate 20 FiO2 70.0 % Tidal Volume 400 PEEP 5 Potassium (3.6-5.2) mmol/L Carbon Dioxide (22-30) mmol/L Anion Gap (10-20) BUN (7-17) mg/dL Creatinine (0.7-1.2) mg/dL Est GFR ( Amer) Est GFR (Non-Af Amer) POC Glucose (mg/dL) 249 H 241 H (65-110) mg/dL Random Glucose (65-105) mg/dL Calcium (8.6-10.4) mg/dl Phosphorus (2.5-4.5) mg/dL Magnesium (1.6-2.3) mg/dL Total Bilirubin (0.2-1.3) mg/dL AST (14-36) U/L ALT (9-52) U/L Alkaline Phosphatase (38-126) U/L Total Protein (6.3-8.3) g/dL Albumin (3.5-5.0) g/dL Globulin (2.2-3.9) gm/dL Albumin/Globulin Ratio (1.0-2.1) Arterial Blood Potassium 3.8 (3.6-5.2) mmol/L Urine Color (YELLOW) Urine Clarity (Clear) Urine pH (5.0-8.0) Ur Specific [place] (1.003-1.030) Urine Protein (NEGATIVE) mg/dL Urine Glucose (UA) (Normal) mg/dL Urine Ketones (NEGATIVE) mg/dL Urine Blood (NEGATIVE) Urine Nitrate (NEGATIVE) Urine Bilirubin (NEGATIVE) Urine Urobilinogen (0.2-1.0) mg/dL Ur Leukocyte Esterase (Negative) Carrie/uL Urine WBC (Auto) (0-5) /hpf Urine RBC (Auto) (0-3) /hpf Urine WBC Clumps (Auto) (NONE) /hpf Ur Squamous Epith Cells (0-5) /hpf Urine Bacteria (<OCC) Urine Yeast (Budding) (NEGATIVE) /hpf Blood Type Antibody Screen 02/26/18 02/26/18 02/26/18 Range/Units 17:44 11:38 11:32 WBC 1.4 L* (4.8-10.8) K/uL RBC 2.78 L (3.80-5.20) Mil/uL Hgb 7.4 L (11.0-16.0) g/dL Hct 22.3 L (34.0-47.0) % MCV 80.2 L (81.0-99.0) fL MCH 26.4 L (27.0-31.0) pg MCHC 33.0 (33.0-37.0) g/dL RDW 21.6 H (11.5-14.5) % Plt Count 25 L* (130-400) K/uL MPV 10.0 (7.2-11.7) fL Neut % (Auto) 96.2 H (50.0-75.0) % Lymph % (Auto) 2.8 L (20.0-40.0) % Peach % (Auto) 0.6 (0.0-10.0) % Eos % (Auto) 0.0 (0.0-4.0) % Baso % (Auto) 0.4 (0.0-2.0) % Neut # (Auto) 1.3 L (1.8-7.0) K/uL Lymph # (Auto) 0.0 L (1.0-4.3) K/uL Peach # (Auto) 0.0 (0.0-0.8) K/uL Eos # (Auto) 0.0 (0.0-0.7) K/uL Baso # (Auto) 0.0 (0.0-0.2) K/uL Neutrophils % (Manual) 82 H (50-75) % Band Neutrophils % 10 H (0-2) % Lymphocytes % (Manual) 4 L (20-40) % Monocytes % (Manual) 4 (0-10) % Platelet Estimate Decreased L (NORMAL) Polychromasia Hypochromasia (manual) Slight Poikilocytosis (manual Slight Basophilic Stippling Slight Anisocytosis (manual) Slight Target Cells Slight Ovalocytes Slight Puncture Site pCO2 (35-45) mm/Hg pO2 (80-100) mm/Hg HCO3 (21-28) mmol/L ABG pH (7.35-7.45) ABG Total CO2 (22-28) mmol/L ABG O2 Saturation (95-98) % ABG Base Excess (-2.0-3.0) mmol/L Chepe Test ABG Potassium (3.6-5.2) mmol/L A-a O2 Difference mm/Hg Respiratory Index Sodium (132-148) mmol/l Chloride (98-107) mmol/L Glucose (65-105) mg/dl Lactate (0.7-2.1) mmol/L Vent Mode Mechanical Rate FiO2 % Tidal Volume PEEP Potassium (3.6-5.2) mmol/L Carbon Dioxide (22-30) mmol/L Anion Gap (10-20) BUN (7-17) mg/dL Creatinine (0.7-1.2) mg/dL Est GFR ( Amer) Est GFR (Non-Af Amer) POC Glucose (mg/dL) 300 H 198 H (65-110) mg/dL Random Glucose (65-105) mg/dL Calcium (8.6-10.4) mg/dl Phosphorus (2.5-4.5) mg/dL Magnesium (1.6-2.3) mg/dL Total Bilirubin (0.2-1.3) mg/dL AST (14-36) U/L ALT (9-52) U/L Alkaline Phosphatase (38-126) U/L Total Protein (6.3-8.3) g/dL Albumin (3.5-5.0) g/dL Globulin (2.2-3.9) gm/dL Albumin/Globulin Ratio (1.0-2.1) Arterial Blood Potassium (3.6-5.2) mmol/L Urine Color (YELLOW) Urine Clarity (Clear) Urine pH (5.0-8.0) Ur Specific [place] (1.003-1.030) Urine Protein (NEGATIVE) mg/dL Urine Glucose (UA) (Normal) mg/dL Urine Ketones (NEGATIVE) mg/dL Urine Blood (NEGATIVE) Urine Nitrate (NEGATIVE) Urine Bilirubin (NEGATIVE) Urine Urobilinogen (0.2-1.0) mg/dL Ur Leukocyte Esterase (Negative) Carrie/uL Urine WBC (Auto) (0-5) /hpf Urine RBC (Auto) (0-3) /hpf Urine WBC Clumps (Auto) (NONE) /hpf Ur Squamous Epith Cells (0-5) /hpf Urine Bacteria (<OCC) Urine Yeast (Budding) (NEGATIVE) /hpf Blood Type Antibody Screen 02/26/18 Range/Units 00:08 WBC (4.8-10.8) K/uL RBC (3.80-5.20) Mil/uL Hgb (11.0-16.0) g/dL Hct (34.0-47.0) % MCV (81.0-99.0) fL MCH (27.0-31.0) pg MCHC (33.0-37.0) g/dL RDW (11.5-14.5) % Plt Count (130-400) K/uL MPV (7.2-11.7) fL Neut % (Auto) (50.0-75.0) % Lymph % (Auto) (20.0-40.0) % Peach % (Auto) (0.0-10.0) % Eos % (Auto) (0.0-4.0) % Baso % (Auto) (0.0-2.0) % Neut # (Auto) (1.8-7.0) K/uL Lymph # (Auto) (1.0-4.3) K/uL Peach # (Auto) (0.0-0.8) K/uL Eos # (Auto) (0.0-0.7) K/uL Baso # (Auto) (0.0-0.2) K/uL Neutrophils % (Manual) (50-75) % Band Neutrophils % (0-2) % Lymphocytes % (Manual) (20-40) % Monocytes % (Manual) (0-10) % Platelet Estimate (NORMAL) Polychromasia Hypochromasia (manual) Poikilocytosis (manual Basophilic Stippling Anisocytosis (manual) Target Cells Ovalocytes Puncture Site pCO2 (35-45) mm/Hg pO2 (80-100) mm/Hg HCO3 (21-28) mmol/L ABG pH (7.35-7.45) ABG Total CO2 (22-28) mmol/L ABG O2 Saturation (95-98) % ABG Base Excess (-2.0-3.0) mmol/L Chepe Test ABG Potassium (3.6-5.2) mmol/L A-a O2 Difference mm/Hg Respiratory Index Sodium (132-148) mmol/l Chloride (98-107) mmol/L Glucose (65-105) mg/dl Lactate (0.7-2.1) mmol/L Vent Mode Mechanical Rate FiO2 % Tidal Volume PEEP Potassium (3.6-5.2) mmol/L Carbon Dioxide (22-30) mmol/L Anion Gap (10-20) BUN (7-17) mg/dL Creatinine (0.7-1.2) mg/dL Est GFR ( Amer) Est GFR (Non-Af Amer) POC Glucose (mg/dL) (65-110) mg/dL Random Glucose (65-105) mg/dL Calcium (8.6-10.4) mg/dl Phosphorus (2.5-4.5) mg/dL Magnesium (1.6-2.3) mg/dL Total Bilirubin (0.2-1.3) mg/dL AST (14-36) U/L ALT (9-52) U/L Alkaline Phosphatase (38-126) U/L Total Protein (6.3-8.3) g/dL Albumin (3.5-5.0) g/dL Globulin (2.2-3.9) gm/dL Albumin/Globulin Ratio (1.0-2.1) Arterial Blood Potassium (3.6-5.2) mmol/L Urine Color (YELLOW) Urine Clarity (Clear) Urine pH (5.0-8.0) Ur Specific [place] (1.003-1.030) Urine Protein (NEGATIVE) mg/dL Urine Glucose (UA) (Normal) mg/dL Urine Ketones (NEGATIVE) mg/dL Urine Blood (NEGATIVE) Urine Nitrate (NEGATIVE) Urine Bilirubin (NEGATIVE) Urine Urobilinogen (0.2-1.0) mg/dL Ur Leukocyte Esterase (Negative) Carrie/uL Urine WBC (Auto) (0-5) /hpf Urine RBC (Auto) (0-3) /hpf Urine WBC Clumps (Auto) (NONE) /hpf Ur Squamous Epith Cells (0-5) /hpf Urine Bacteria (<OCC) Urine Yeast (Budding) (NEGATIVE) /hpf Blood Type B POSITIVE Antibody Screen Negative Laboratory Results - last 24 hr 02/26/18 02/26/18 02/26/18 00:08 11:32 11:38 WBC 1.4 L* RBC 2.78 L Hgb 7.4 L Hct 22.3 L MCV 80.2 L MCH 26.4 L MCHC 33.0 RDW 21.6 H Plt Count 25 L* MPV 10.0 Neut % (Auto) 96.2 H Lymph % (Auto) 2.8 L Peach % (Auto) 0.6 Eos % (Auto) 0.0 Baso % (Auto) 0.4 Neut # (Auto) 1.3 L Lymph # (Auto) 0.0 L Peach # (Auto) 0.0 Eos # (Auto) 0.0 Baso # (Auto) 0.0 Neutrophils % (Manual) 82 H Band Neutrophils % 10 H Lymphocytes % (Manual) 4 L Monocytes % (Manual) 4 Platelet Estimate Decreased L Polychromasia Hypochromasia (manual) Slight Poikilocytosis (manual Slight Basophilic Stippling Slight Anisocytosis (manual) Slight Target Cells Slight Ovalocytes Slight Puncture Site pCO2 pO2 HCO3 ABG pH ABG Total CO2 ABG O2 Saturation ABG Base Excess Chepe Test ABG Potassium A-a O2 Difference Respiratory Index Sodium Chloride Glucose Lactate Vent Mode Mechanical Rate FiO2 Tidal Volume PEEP Potassium Carbon Dioxide Anion Gap BUN Creatinine Est GFR ( Amer) Est GFR (Non-Af Amer) POC Glucose (mg/dL) 198 H Random Glucose Calcium Phosphorus Magnesium Total Bilirubin AST ALT Alkaline Phosphatase Total Protein Albumin Globulin Albumin/Globulin Ratio Arterial Blood Potassium Urine Color Urine Clarity Urine pH Ur Specific [place] Urine Protein Urine Glucose (UA) Urine Ketones Urine Blood Urine Nitrate Urine Bilirubin Urine Urobilinogen Ur Leukocyte Esterase Urine WBC (Auto) Urine RBC (Auto) Urine WBC Clumps (Auto) Ur Squamous Epith Cells Urine Bacteria Urine Yeast (Budding) Blood Type B POSITIVE Antibody Screen Negative 02/26/18 02/26/18 02/27/18 17:44 23:49 05:14 WBC RBC Hgb Hct MCV MCH MCHC RDW Plt Count MPV Neut % (Auto) Lymph % (Auto) Peach % (Auto) Eos % (Auto) Baso % (Auto) Neut # (Auto) Lymph # (Auto) Peach # (Auto) Eos # (Auto) Baso # (Auto) Neutrophils % (Manual) Band Neutrophils % Lymphocytes % (Manual) Monocytes % (Manual) Platelet Estimate Polychromasia Hypochromasia (manual) Poikilocytosis (manual Basophilic Stippling Anisocytosis (manual) Target Cells Ovalocytes Puncture Site pCO2 pO2 HCO3 ABG pH ABG Total CO2 ABG O2 Saturation ABG Base Excess Chepe Test ABG Potassium A-a O2 Difference Respiratory Index Sodium Chloride Glucose Lactate Vent Mode Mechanical Rate FiO2 Tidal Volume PEEP Potassium Carbon Dioxide Anion Gap BUN Creatinine Est GFR ( Amer) Est GFR (Non-Af Amer) POC Glucose (mg/dL) 300 H 241 H 249 H Random Glucose Calcium Phosphorus Magnesium Total Bilirubin AST ALT Alkaline Phosphatase Total Protein Albumin Globulin Albumin/Globulin Ratio Arterial Blood Potassium Urine Color Urine Clarity Urine pH Ur Specific [place] Urine Protein Urine Glucose (UA) Urine Ketones Urine Blood Urine Nitrate Urine Bilirubin Urine Urobilinogen Ur Leukocyte Esterase Urine WBC (Auto) Urine RBC (Auto) Urine WBC Clumps (Auto) Ur Squamous Epith Cells Urine Bacteria Urine Yeast (Budding) Blood Type Antibody Screen 02/27/18 02/27/18 02/27/18 05:33 06:23 06:23 WBC 2.4 L D RBC 3.28 L Hgb 8.8 L Hct 26.6 L MCV 81.1 MCH 26.8 L MCHC 33.1 RDW 19.8 H Plt Count 31 L MPV 9.6 Neut % (Auto) 96.4 H Lymph % (Auto) 1.8 L Peach % (Auto) 1.5 Eos % (Auto) 0.1 Baso % (Auto) 0.2 Neut # (Auto) 2.3 Lymph # (Auto) 0.0 L Peach # (Auto) 0.0 Eos # (Auto) 0.0 Baso # (Auto) 0.0 Neutrophils % (Manual) 82 H Band Neutrophils % 13 H* Lymphocytes % (Manual) 2 L Monocytes % (Manual) 3 Platelet Estimate Decreased L Polychromasia Slight Hypochromasia (manual) Slight Poikilocytosis (manual Basophilic Stippling Anisocytosis (manual) Slight Target Cells Ovalocytes Slight Puncture Site Rra pCO2 39 pO2 56 L HCO3 24.3 ABG pH 7.40 ABG Total CO2 25.4 ABG O2 Saturation 93.7 L ABG Base Excess -0.5 Chepe Test Yes ABG Potassium 3.8 A-a O2 Difference 394.0 Respiratory Index 7.0 Sodium 148.0 149 H Chloride 117.0 H 113 H Glucose 240 H Lactate 1.2 Vent Mode Prvc Mechanical Rate 20 FiO2 70.0 Tidal Volume 400 PEEP 5 Potassium 3.9 Carbon Dioxide 25 Anion Gap 14 BUN 55 H Creatinine 1.0 Est GFR ( Amer) > 60 Est GFR (Non-Af Amer) 55 POC Glucose (mg/dL) Random Glucose 237 H Calcium 7.7 L Phosphorus 3.8 Magnesium 2.1 Total Bilirubin 1.2 AST 39 H D ALT 79 H Alkaline Phosphatase 207 H Total Protein 4.5 L Albumin 2.1 L Globulin 2.4 Albumin/Globulin Ratio 0.9 L Arterial Blood Potassium 3.8 Urine Color Urine Clarity Urine pH Ur Specific [place] Urine Protein Urine Glucose (UA) Urine Ketones Urine Blood Urine Nitrate Urine Bilirubin Urine Urobilinogen Ur Leukocyte Esterase Urine WBC (Auto) Urine RBC (Auto) Urine WBC Clumps (Auto) Ur Squamous Epith Cells Urine Bacteria Urine Yeast (Budding) Blood Type Antibody Screen 02/27/18 06:34 WBC RBC Hgb Hct MCV MCH MCHC RDW Plt Count MPV Neut % (Auto) Lymph % (Auto) Peach % (Auto) Eos % (Auto) Baso % (Auto) Neut # (Auto) Lymph # (Auto) Peach # (Auto) Eos # (Auto) Baso # (Auto) Neutrophils % (Manual) Band Neutrophils % Lymphocytes % (Manual) Monocytes % (Manual) Platelet Estimate Polychromasia Hypochromasia (manual) Poikilocytosis (manual Basophilic Stippling Anisocytosis (manual) Target Cells Ovalocytes Puncture Site pCO2 pO2 HCO3 ABG pH ABG Total CO2 ABG O2 Saturation ABG Base Excess Chepe Test ABG Potassium A-a O2 Difference Respiratory Index Sodium Chloride Glucose Lactate Vent Mode Mechanical Rate FiO2 Tidal Volume PEEP Potassium Carbon Dioxide Anion Gap BUN Creatinine Est GFR ( Amer) Est GFR (Non-Af Amer) POC Glucose (mg/dL) Random Glucose Calcium Phosphorus Magnesium Total Bilirubin AST ALT Alkaline Phosphatase Total Protein Albumin Globulin Albumin/Globulin Ratio Arterial Blood Potassium Urine Color Linda Urine Clarity Hazy Urine pH 5.0 Ur Specific [place] 1.018 Urine Protein 1+ H Urine Glucose (UA) Normal Urine Ketones Negative Urine Blood 2+ H Urine Nitrate Positive H Urine Bilirubin Negative Urine Urobilinogen Normal Ur Leukocyte Esterase Neg Urine WBC (Auto) 31 H Urine RBC (Auto) 31 H Urine WBC Clumps (Auto) Few H Ur Squamous Epith Cells < 1 Urine Bacteria Occ H Urine Yeast (Budding) Many H Blood Type Antibody Screen Fingerstick Blood Sugar Results: 300 Review of Systems - Review of Systems Systems not reviewed;Unavailable: Intubated Assessment/Plan - Assessment and Plan (Free Text) Assessment: 72 year old female with history of left breast cancer s/p mastectomy, cervical cancer s/p hysterectomy, newly diagnosed lymphoma, COPD, HTN, DM, anemia sp transfusion. ICU consulted for neutropenic fevers after chemo. Plan: Neuro: Patient intubated, sedated on Propofol Cardiovascular: Hypotensive currently on Levophed Patient has history of HTN, Hold antihypertensives Pulmonary Right upper lobe infiltrate CXR Bilateral coalescent airspace opaciies infiltrates and or pulmonary edema/ ARDS are all considerations/compatible with this. No significant change regarding this appearance noted. CT chest Interval worsening bilateral pneumonia affecting primarily the bilateral lower lobes greater than the bilateral upper lobes and minimally involving the middle lobe. Prior right pleural effusion diminished in the interval. Cholelithiasis. Bilateral adrenal hypertrophy without gross mass evident. Mild splenomegaly to 13.6 cm. Small hiatal hernia identified Patient intubated on 02/25/18. Sedated on Propofol Legionella negative mycoplasma negative Upper and lower extremity Dopplers ordered f/u GI Protonix 40mg Stool occult + Renal BUN 55 Cr 1.0 I & Os +3817 Continue to monitor electrolytes Heme/Onc Hx of left breast cancer s/p mastectomy Hx of cervical cancer s/p hysterectomy Newly diagnosed lymphoma Anemic H/H 8.8/26.6, improved Platelets 31 Dr. Krueger consulted, help appreciated Surgery Dr. Garcia on board ([facility] ) ID white count 2.4 today Platelets 31 today 9/3 Blood cultures prelim positive for GP cocci / prelim blood cx no growth, sputum MRSA on meropenem day3, micafungin day4, vancomycin day 4 Dr[address] Mccollum consulted, help appreciated Endo Hx of DM ISS Case discussed with Dr. Cisneros <Emmett Cisneros - Last Filed: 02/27/18 15:45> CCU Subjective - Physician Review Critical Care Time Spent (in minutes): 40 CCU Objective - Vital Signs / Intake & Output Vital Signs (Last 4 hours): Vital Signs Temp Pulse Resp BP Pulse Ox 02/27/18 15:29 77 37 H 110/59 L 97 02/27/18 14:59 88 24 116/62 94 L 02/27/18 14:29 86 15 95/59 L 87 L 02/27/18 14:00 92 H 18 144/62 98 02/27/18 13:29 68 20 99/50 L 99 02/27/18 12:59 66 27 H 100/52 L 97 02/27/18 12:29 74 32 H 117/55 L 02/27/18 12:00 97.7 F 02/27/18 11:59 80 26 H 101/58 L 96 Intake and Output (Last 8hrs): Intake & Output 02/27/18 02/27/18 02/27/18 06:59 14:59 22:59 Intake Total 1108 1938.6 168.5 Output Total 1100 134 Balance 8 1804.6 168.5 Weight 130 lb 6.4 oz Intake: IV 350 530 Intake, IV Amount 758 1323.6 153.5 Right Distal Port Port-A- 128 117.2 16 Cath Right Hand 150 Right Port-A-Cath 480 356.4 37.5 Right Portocath Y port 850 100 Tube Feeding 85 15 Output: Urine 1100 134 Urethral ([place]) 134 Urine, Voided 1100 - Medications Active Medications: Active Medications Generic Name Dose Route Start Last Admin Trade Name Freq PRN Reason Stop Dose Admin Acetaminophen 650 mg 02/14/18 20:48 02/26/18 15:23 Tylenol 325mg Tab PO 650 mg Q6 PRN Administration pain Albuterol/Ipratropium 3 ml 02/24/18 08:00 02/27/18 13:13 Duoneb 3 Mg/0.5 Mg (3 Ml) Ud INH 3 ml RQ6 MILLIE Administration Hydrocortisone Sodium Succinate 300 mg 02/27/18 15:37 Solu-Cortef IV 02/27/18 15:38 STAT STA Hydrocortisone Sodium Succinate 100 mg 02/27/18 15:45 Solu-Cortef IV Q8H MILLIE Vancomycin/Sodium Chloride 1 gm in 200 mls @ 166.7 mls/hr 02/24/18 10:00 01/07 09:27 Vancomycin 1 Gm/Ns 200 Ml IVPB 03/01/18 10:01 166.7 mls/hr Q12H MILLIE Administration Protocol Micafungin Sodium 100 mg/ 100 mls @ 100 mls/hr 02/24/18 13:00 02/27/18 13:16 Dextrose IV 100 mls/hr Q24H MILLIE Administration Protocol Propofol 1,000 mg in 100 mls @ 1.772 mls/hr 02/25/18 15:35 02/27/18 15:09 Diprivan IV 45 mcg/kg/min .Q24H PRN 15.946 mls/hr TITRATE PER MD ORDER Administration Protocol 5 MCG/KG/MIN Norepinephrine Bitartrate 4 mg 250 mls @ 15 mls/hr 02/25/18 16:40 02/27/18 11 :10 / Sodium Chloride IV 10 mcg/min .[id number] PRN 37.5 mls/hr TITRATE PER MD ORDER Titration Protocol 4 MCG/MIN Meropenem 1 gm/ Sodium 100 mls @ 100 mls/hr 02/25/18 20:00 02/27/18 11:58 Chloride IVPB 100 mls/hr Q8H MILLIE Administration Protocol Vasopressin 40 units/ Sodium 40 mls @ 0.6 mls/hr 02/26/18 11:15 02/27/18 11: 13 Chloride IV Not Given .Q24H MILLIE Protocol 0.01 UNITS/MIN Sodium Chloride 1,000 mls @ 100 mls/hr 02/27/18 06:30 02/27/18 06:30 Sodium Chloride 0.9% IV 100 mls/hr .Q10H MILLIE Administration Insulin Aspart 0 unit 02/25/18 18:00 02/27/18 11:58 Novolog SC 2 u Q6H MILLIE Administration Protocol Lorazepam 1 mg 02/26/18 11:01 02/27/18 14:06 Ativan IVP 1 mg Q4H PRN Administration Agitation Multivitamins/Vitamin C 5 ml 02/24/18 10:15 02/27/18 09:26 Multi-Delyn Liquid PO 5 ml DAILY MILLIE Administration Pantoprazole Sodium 40 mg 02/27/18 10:00 02/27/18 09:26 Protonix Susp PO 40 mg DAILY MILLIE Administration Simethicone 80 mg 02/17/18 20:31 02/18/18 20:28 Mylicon Chew Tab PO 80 mg Q8 PRN Administration GI distress - Patient Studies Lab Studies: Microbiology Studies 02/23/18 21:15 Blood Culture - Final Blood-Venous Streptococcus Salivarius Methicillin Resistant S Aureus Gram Stain - Final 02/25/18 15:46 Gram Stain - Final Sputum Induced Sputum Culture - Final Methicillin Resistant S Aureus 02/23/18 21:45 S.aureus & Coag-Neg Staph PNA FISH - Final Blood-Venous Blood Culture - Final Streptococcus Salivarius Methicillin Resistant S Aureus Gram Stain - Final 02/25/18 05:55 Blood Culture - Preliminary Blood-Thru Central Line NO GROWTH AFTER 48 HOURS 02/25/18 05:55 Blood Culture - Preliminary Blood-Thru Central Line NO GROWTH AFTER 48 HOURS Lab Studies 02/27/18 02/27/18 02/27/18 Range/Units 06:34 06:23 06:23 WBC 2.4 L D (4.8-10.8) K/uL RBC 3.28 L (3.80-5.20) Mil/uL Hgb 8.8 L (11.0-16.0) g/dL Hct 26.6 L (34.0-47.0) % MCV 81.1 (81.0-99.0) fL MCH 26.8 L (27.0-31.0) pg MCHC 33.1 (33.0-37.0) g/dL RDW 19.8 H (11.5-14.5) % Plt Count 31 L (130-400) K/uL MPV 9.6 (7.2-11.7) fL Neut % (Auto) 96.4 H (50.0-75.0) % Lymph % (Auto) 1.8 L (20.0-40.0) % Peach % (Auto) 1.5 (0.0-10.0) % Eos % (Auto) 0.1 (0.0-4.0) % Baso % (Auto) 0.2 (0.0-2.0) % Neut # (Auto) 2.3 (1.8-7.0) K/uL Lymph # (Auto) 0.0 L (1.0-4.3) K/uL Peach # (Auto) 0.0 (0.0-0.8) K/uL Eos # (Auto) 0.0 (0.0-0.7) K/uL Baso # (Auto) 0.0 (0.0-0.2) K/uL Neutrophils % (Manual) 82 H (50-75) % Band Neutrophils % 13 H* (0-2) % Lymphocytes % (Manual) 2 L (20-40) % Monocytes % (Manual) 3 (0-10) % Platelet Estimate Decreased L (NORMAL) Polychromasia Slight Hypochromasia (manual) Slight Anisocytosis (manual) Slight Ovalocytes Slight Puncture Site pCO2 (35-45) mm/Hg pO2 (80-100) mm/Hg HCO3 (21-28) mmol/L ABG pH (7.35-7.45) ABG Total CO2 (22-28) mmol/L ABG O2 Saturation (95-98) % ABG Base Excess (-2.0-3.0) mmol/L Chepe Test ABG Potassium (3.6-5.2) mmol/L A-a O2 Difference mm/Hg Respiratory Index Sodium 149 H (132-148) mmol/l Chloride 113 H (98-107) mmol/L Glucose (65-105) mg/dl Lactate (0.7-2.1) mmol/L Vent Mode Mechanical Rate FiO2 % Tidal Volume PEEP Potassium 3.9 (3.6-5.2) mmol/L Carbon Dioxide 25 (22-30) mmol/L Anion Gap 14 (10-20) BUN 55 H (7-17) mg/dL Creatinine 1.0 (0.7-1.2) mg/dL Est GFR ( Amer) > 60 Est GFR (Non-Af Amer) 55 POC Glucose (mg/dL) (65-110) mg/dL Random Glucose 237 H (65-105) mg/dL Calcium 7.7 L (8.6-10.4) mg/dl Phosphorus 3.8 (2.5-4.5) mg/dL Magnesium 2.1 (1.6-2.3) mg/dL Total Bilirubin 1.2 (0.2-1.3) mg/dL AST 39 H D (14-36) U/L ALT 79 H (9-52) U/L Alkaline Phosphatase 207 H (38-126) U/L Total Protein 4.5 L (6.3-8.3) g/dL Albumin 2.1 L (3.5-5.0) g/dL Globulin 2.4 (2.2-3.9) gm/dL Albumin/Globulin Ratio 0.9 L (1.0-2.1) Arterial Blood Potassium (3.6-5.2) mmol/L Urine Color Linda (YELLOW) Urine Clarity Hazy (Clear) Urine pH 5.0 (5.0-8.0) Ur Specific [place] 1.018 (1.003-1.030) Urine Protein 1+ H (NEGATIVE) mg/dL Urine Glucose (UA) Normal (Normal) mg/dL Urine Ketones Negative (NEGATIVE) mg/dL Urine Blood 2+ H (NEGATIVE) Urine Nitrate Positive H (NEGATIVE) Urine Bilirubin Negative (NEGATIVE) Urine Urobilinogen Normal (0.2-1.0) mg/dL Ur Leukocyte Esterase Neg (Negative) Carrie/uL Urine WBC (Auto) 31 H (0-5) /hpf Urine RBC (Auto) 31 H (0-3) /hpf Urine WBC Clumps (Auto) Few H (NONE) /hpf Ur Squamous Epith Cells < 1 (0-5) /hpf Urine Bacteria Occ H (<OCC) Urine Yeast (Budding) Many H (NEGATIVE) /hpf Blood Type Antibody Screen 02/27/18 02/27/18 02/26/18 Range/Units 05:33 05:14 23:49 WBC (4.8-10.8) K/uL RBC (3.80-5.20) Mil/uL Hgb (11.0-16.0) g/dL Hct (34.0-47.0) % MCV (81.0-99.0) fL MCH (27.0-31.0) pg MCHC (33.0-37.0) g/dL RDW (11.5-14.5) % Plt Count (130-400) K/uL MPV (7.2-11.7) fL Neut % (Auto) (50.0-75.0) % Lymph % (Auto) (20.0-40.0) % Peach % (Auto) (0.0-10.0) % Eos % (Auto) (0.0-4.0) % Baso % (Auto) (0.0-2.0) % Neut # (Auto) (1.8-7.0) K/uL Lymph # (Auto) (1.0-4.3) K/uL Peach # (Auto) (0.0-0.8) K/uL Eos # (Auto) (0.0-0.7) K/uL Baso # (Auto) (0.0-0.2) K/uL Neutrophils % (Manual) (50-75) % Band Neutrophils % (0-2) % Lymphocytes % (Manual) (20-40) % Monocytes % (Manual) (0-10) % Platelet Estimate (NORMAL) Polychromasia Hypochromasia (manual) Anisocytosis (manual) Ovalocytes Puncture Site Rra pCO2 39 (35-45) mm/Hg pO2 56 L (80-100) mm/Hg HCO3 24.3 (21-28) mmol/L ABG pH 7.40 (7.35-7.45) ABG Total CO2 25.4 (22-28) mmol/L ABG O2 Saturation 93.7 L (95-98) % ABG Base Excess -0.5 (-2.0-3.0) mmol/L Chepe Test Yes ABG Potassium 3.8 (3.6-5.2) mmol/L A-a O2 Difference 394.0 mm/Hg Respiratory Index 7.0 Sodium 148.0 (132-148) mmol/l Chloride 117.0 H (98-107) mmol/L Glucose 240 H (65-105) mg/dl Lactate 1.2 (0.7-2.1) mmol/L Vent Mode Prvc Mechanical Rate 20 FiO2 70.0 % Tidal Volume 400 PEEP 5 Potassium (3.6-5.2) mmol/L Carbon Dioxide (22-30) mmol/L Anion Gap (10-20) BUN (7-17) mg/dL Creatinine (0.7-1.2) mg/dL Est GFR ( Amer) Est GFR (Non-Af Amer) POC Glucose (mg/dL) 249 H 241 H (65-110) mg/dL Random Glucose (65-105) mg/dL Calcium (8.6-10.4) mg/dl Phosphorus (2.5-4.5) mg/dL Magnesium (1.6-2.3) mg/dL Total Bilirubin (0.2-1.3) mg/dL AST (14-36) U/L ALT (9-52) U/L Alkaline Phosphatase (38-126) U/L Total Protein (6.3-8.3) g/dL Albumin (3.5-5.0) g/dL Globulin (2.2-3.9) gm/dL Albumin/Globulin Ratio (1.0-2.1) Arterial Blood Potassium 3.8 (3.6-5.2) mmol/L Urine Color (YELLOW) Urine Clarity (Clear) Urine pH (5.0-8.0) Ur Specific [place] (1.003-1.030) Urine Protein (NEGATIVE) mg/dL Urine Glucose (UA) (Normal) mg/dL Urine Ketones (NEGATIVE) mg/dL Urine Blood (NEGATIVE) Urine Nitrate (NEGATIVE) Urine Bilirubin (NEGATIVE) Urine Urobilinogen (0.2-1.0) mg/dL Ur Leukocyte Esterase (Negative) Carrie/uL Urine WBC (Auto) (0-5) /hpf Urine RBC (Auto) (0-3) /hpf Urine WBC Clumps (Auto) (NONE) /hpf Ur Squamous Epith Cells (0-5) /hpf Urine Bacteria (<OCC) Urine Yeast (Budding) (NEGATIVE) /hpf Blood Type Antibody Screen 02/26/18 02/26/18 Range/Units 17:44 00:08 WBC (4.8-10.8) K/uL RBC (3.80-5.20) Mil/uL Hgb (11.0-16.0) g/dL Hct (34.0-47.0) % MCV (81.0-99.0) fL MCH (27.0-31.0) pg MCHC (33.0-37.0) g/dL RDW (11.5-14.5) % Plt Count (130-400) K/uL MPV (7.2-11.7) fL Neut % (Auto) (50.0-75.0) % Lymph % (Auto) (20.0-40.0) % Peach % (Auto) (0.0-10.0) % Eos % (Auto) (0.0-4.0) % Baso % (Auto) (0.0-2.0) % Neut # (Auto) (1.8-7.0) K/uL Lymph # (Auto) (1.0-4.3) K/uL Peach # (Auto) (0.0-0.8) K/uL Eos # (Auto) (0.0-0.7) K/uL Baso # (Auto) (0.0-0.2) K/uL Neutrophils % (Manual) (50-75) % Band Neutrophils % (0-2) % Lymphocytes % (Manual) (20-40) % Monocytes % (Manual) (0-10) % Platelet Estimate (NORMAL) Polychromasia Hypochromasia (manual) Anisocytosis (manual) Ovalocytes Puncture Site pCO2 (35-45) mm/Hg pO2 (80-100) mm/Hg HCO3 (21-28) mmol/L ABG pH (7.35-7.45) ABG Total CO2 (22-28) mmol/L ABG O2 Saturation (95-98) % ABG Base Excess (-2.0-3.0) mmol/L Chepe Test ABG Potassium (3.6-5.2) mmol/L A-a O2 Difference mm/Hg Respiratory Index Sodium (132-148) mmol/l Chloride (98-107) mmol/L Glucose (65-105) mg/dl Lactate (0.7-2.1) mmol/L Vent Mode Mechanical Rate FiO2 % Tidal Volume PEEP Potassium (3.6-5.2) mmol/L Carbon Dioxide (22-30) mmol/L Anion Gap (10-20) BUN (7-17) mg/dL Creatinine (0.7-1.2) mg/dL Est GFR ( Amer) Est GFR (Non-Af Amer) POC Glucose (mg/dL) 300 H (65-110) mg/dL Random Glucose (65-105) mg/dL Calcium (8.6-10.4) mg/dl Phosphorus (2.5-4.5) mg/dL Magnesium (1.6-2.3) mg/dL Total Bilirubin (0.2-1.3) mg/dL AST (14-36) U/L ALT (9-52) U/L Alkaline Phosphatase (38-126) U/L Total Protein (6.3-8.3) g/dL Albumin (3.5-5.0) g/dL Globulin (2.2-3.9) gm/dL Albumin/Globulin Ratio (1.0-2.1) Arterial Blood Potassium (3.6-5.2) mmol/L Urine Color (YELLOW) Urine Clarity (Clear) Urine pH (5.0-8.0) Ur Specific [place] (1.003-1.030) Urine Protein (NEGATIVE) mg/dL Urine Glucose (UA) (Normal) mg/dL Urine Ketones (NEGATIVE) mg/dL Urine Blood (NEGATIVE) Urine Nitrate (NEGATIVE) Urine Bilirubin (NEGATIVE) Urine Urobilinogen (0.2-1.0) mg/dL Ur Leukocyte Esterase (Negative) Carrie/uL Urine WBC (Auto) (0-5) /hpf Urine RBC (Auto) (0-3) /hpf Urine WBC Clumps (Auto) (NONE) /hpf Ur Squamous Epith Cells (0-5) /hpf Urine Bacteria (<OCC) Urine Yeast (Budding) (NEGATIVE) /hpf Blood Type B POSITIVE Antibody Screen Negative Laboratory Results - last 24 hr 02/26/18 02/26/18 02/26/18 00:08 17:44 23:49 WBC RBC Hgb Hct MCV MCH MCHC RDW Plt Count MPV Neut % (Auto) Lymph % (Auto) Peach % (Auto) Eos % (Auto) Baso % (Auto) Neut # (Auto) Lymph # (Auto) Peach # (Auto) Eos # (Auto) Baso # (Auto) Neutrophils % (Manual) Band Neutrophils % Lymphocytes % (Manual) Monocytes % (Manual) Platelet Estimate Polychromasia Hypochromasia (manual) Anisocytosis (manual) Ovalocytes Puncture Site pCO2 pO2 HCO3 ABG pH ABG Total CO2 ABG O2 Saturation ABG Base Excess Chepe Test ABG Potassium A-a O2 Difference Respiratory Index Sodium Chloride Glucose Lactate Vent Mode Mechanical Rate FiO2 Tidal Volume PEEP Potassium Carbon Dioxide Anion Gap BUN Creatinine Est GFR ( Amer) Est GFR (Non-Af Amer) POC Glucose (mg/dL) 300 H 241 H Random Glucose Calcium Phosphorus Magnesium Total Bilirubin AST ALT Alkaline Phosphatase Total Protein Albumin Globulin Albumin/Globulin Ratio Arterial Blood Potassium Urine Color Urine Clarity Urine pH Ur Specific [place] Urine Protein Urine Glucose (UA) Urine Ketones Urine Blood Urine Nitrate Urine Bilirubin Urine Urobilinogen Ur Leukocyte Esterase Urine WBC (Auto) Urine RBC (Auto) Urine WBC Clumps (Auto) Ur Squamous Epith Cells Urine Bacteria Urine Yeast (Budding) Blood Type B POSITIVE Antibody Screen Negative 02/27/18 02/27/18 02/27/18 05:14 05:33 06:23 WBC RBC Hgb Hct MCV MCH MCHC RDW Plt Count MPV Neut % (Auto) Lymph % (Auto) Peach % (Auto) Eos % (Auto) Baso % (Auto) Neut # (Auto) Lymph # (Auto) Peach # (Auto) Eos # (Auto) Baso # (Auto) Neutrophils % (Manual) Band Neutrophils % Lymphocytes % (Manual) Monocytes % (Manual) Platelet Estimate Polychromasia Hypochromasia (manual) Anisocytosis (manual) Ovalocytes Puncture Site Rra pCO2 39 pO2 56 L HCO3 24.3 ABG pH 7.40 ABG Total CO2 25.4 ABG O2 Saturation 93.7 L ABG Base Excess -0.5 Chepe Test Yes ABG Potassium 3.8 A-a O2 Difference 394.0 Respiratory Index 7.0 Sodium 148.0 149 H Chloride 117.0 H 113 H Glucose 240 H Lactate 1.2 Vent Mode Prvc Mechanical Rate 20 FiO2 70.0 Tidal Volume 400 PEEP 5 Potassium 3.9 Carbon Dioxide 25 Anion Gap 14 BUN 55 H Creatinine 1.0 Est GFR ( Amer) > 60 Est GFR (Non-Af Amer) 55 POC Glucose (mg/dL) 249 H Random Glucose 237 H Calcium 7.7 L Phosphorus 3.8 Magnesium 2.1 Total Bilirubin 1.2 AST 39 H D ALT 79 H Alkaline Phosphatase 207 H Total Protein 4.5 L Albumin 2.1 L Globulin 2.4 Albumin/Globulin Ratio 0.9 L Arterial Blood Potassium 3.8 Urine Color Urine Clarity Urine pH Ur Specific [place] Urine Protein Urine Glucose (UA) Urine Ketones Urine Blood Urine Nitrate Urine Bilirubin Urine Urobilinogen Ur Leukocyte Esterase Urine WBC (Auto) Urine RBC (Auto) Urine WBC Clumps (Auto) Ur Squamous Epith Cells Urine Bacteria Urine Yeast (Budding) Blood Type Antibody Screen 02/27/18 02/27/18 06:23 06:34 WBC 2.4 L D RBC 3.28 L Hgb 8.8 L Hct 26.6 L MCV 81.1 MCH 26.8 L MCHC 33.1 RDW 19.8 H Plt Count 31 L MPV 9.6 Neut % (Auto) 96.4 H Lymph % (Auto) 1.8 L Peach % (Auto) 1.5 Eos % (Auto) 0.1 Baso % (Auto) 0.2 Neut # (Auto) 2.3 Lymph # (Auto) 0.0 L Peach # (Auto) 0.0 Eos # (Auto) 0.0 Baso # (Auto) 0.0 Neutrophils % (Manual) 82 H Band Neutrophils % 13 H* Lymphocytes % (Manual) 2 L Monocytes % (Manual) 3 Platelet Estimate Decreased L Polychromasia Slight Hypochromasia (manual) Slight Anisocytosis (manual) Slight Ovalocytes Slight Puncture Site pCO2 pO2 HCO3 ABG pH ABG Total CO2 ABG O2 Saturation ABG Base Excess Chepe Test ABG Potassium A-a O2 Difference Respiratory Index Sodium Chloride Glucose Lactate Vent Mode Mechanical Rate FiO2 Tidal Volume PEEP Potassium Carbon Dioxide Anion Gap BUN Creatinine Est GFR ( Amer) Est GFR (Non-Af Amer) POC Glucose (mg/dL) Random Glucose Calcium Phosphorus Magnesium Total Bilirubin AST ALT Alkaline Phosphatase Total Protein Albumin Globulin Albumin/Globulin Ratio Arterial Blood Potassium Urine Color Linda Urine Clarity Hazy Urine pH 5.0 Ur Specific [place] 1.018 Urine Protein 1+ H Urine Glucose (UA) Normal Urine Ketones Negative Urine Blood 2+ H Urine Nitrate Positive H Urine Bilirubin Negative Urine Urobilinogen Normal Ur Leukocyte Esterase Neg Urine WBC (Auto) 31 H Urine RBC (Auto) 31 H Urine WBC Clumps (Auto) Few H Ur Squamous Epith Cells < 1 Urine Bacteria Occ H Urine Yeast (Budding) Many H Blood Type Antibody Screen Assessment/Plan - Assessment and Plan (Free Text) Plan: Patient seen and examined at bedside. Patient s/p chemo developed HAP. (+)MRSA sputum. Acute hypoxic respiratory failure-continue ventilation to keep spo2 >92 and pH b /w 7.35-7.45, continue bronchodilators -MRSA lobar PNA: continue vanco per level and abx as per ID -SHock: contineu pressors to keep MAP >65 start marik protocol -COPD: continue bronchodilators -contine NG tube feeds -BGm q6hrs,ISS/aspart -DVT/PUD ppx -Patient's immune system is compromised and will have difficulty overcomming MRSA PNA. cc time 45 minutes -patient's daughter informed of current clinical management -prognosis poor as patient has metastatic ca with multiorgan dysfunction. - Date & Time Date: 02/27/18 Time: 15:44
[2018-02-27] MEDS: Micafungin 100 MG in Dextrose 5% In Water 100 ML IV SCH (13:16)
[2018-02-27] MEDS ORDERED: Sodium Chloride 0.9% 1,000 ML IV ONE (13:56)
--- NOTE | 2018-02-27 16:29 | CP.PCM.PN ---
Subjective - Date & Time of Evaluation Date of Evaluation: 02/27/18 Time of Evaluation: 08:00 - Subjective Subjective: remains intubated on vent blood c/s and sputum now showing MRSA Objective - Vital Signs/Intake and Output Vital Signs (last 24 hours): Temp Pulse Resp BP Pulse Ox 97.7 F 85 26 H 124/64 100 02/27/18 12:00 02/27/18 16:06 02/27/18 16:06 02/27/18 16:06 02/27/18 16:06 Intake and Output: 02/27/18 02/27/18 06:59 18:59 Intake Total 2487 2277.1 Output Total 1300 134 Balance 1187 2143.1 - Medications Medications: Current Medications Acetaminophen (Tylenol 325mg Tab) 650 mg PO Q6 PRN PRN Reason: pain Last Admin: 02/26/18 15:23 Dose: 650 mg Albuterol/Ipratropium (Duoneb 3 Mg/0.5 Mg (3 Ml) Ud) 3 ml INH RQ6 MILLIE Last Admin: 02/27/18 13:13 Dose: 3 ml Hydrocortisone Sodium Succinate (Solu-Cortef) 100 mg IV Q8H MILLIE Vancomycin/Sodium Chloride (Vancomycin 1 Gm/Ns 200 Ml) 1 gm in 200 mls @ 166.7 mls/hr IVPB Q12H MILLIE PRN Reason: Protocol Stop: 03/01/18 10:01 Last Admin: 02/27/18 09:27 Dose: 166.7 mls/hr Micafungin Sodium 100 mg/ (Dextrose) 100 mls @ 100 mls/hr IV Q24H MILLIE PRN Reason: Protocol Last Admin: 02/27/18 13:16 Dose: 100 mls/hr Propofol (Diprivan) 1,000 mg in 100 mls @ 1.772 mls/hr IV .Q24H PRN; Protocol; 5 MCG/KG/MIN PRN Reason: TITRATE PER MD ORDER Last Admin: 02/27/18 15:09 Dose: 45 mcg/kg/min, 15.946 mls/hr Norepinephrine Bitartrate 4 mg (/ Sodium Chloride) 250 mls @ 15 mls/hr IV .[id number] PRN; Protocol; 4 MCG/MIN PRN Reason: TITRATE PER MD ORDER Last Admin: 02/27/18 16:06 Dose: 8 mcg/min, 30 mls/hr Meropenem 1 gm/ Sodium (Chloride) 100 mls @ 100 mls/hr IVPB Q8H MILLIE PRN Reason: Protocol Last Admin: 02/27/18 11:58 Dose: 100 mls/hr Vasopressin 40 units/ Sodium (Chloride) 40 mls @ 0.6 mls/hr IV .Q24H MILLIE; 0.01 UNITS/MIN PRN Reason: Protocol Last Admin: 02/27/18 11:13 Dose: Not Given Sodium Chloride (Sodium Chloride 0.9%) 1,000 mls @ 100 mls/hr IV .Q10H MILLIE Last Admin: 02/27/18 06:30 Dose: 100 mls/hr Insulin Aspart (Novolog) 0 unit SC Q6H MILLIE PRN Reason: Protocol Last Admin: 02/27/18 11:58 Dose: 2 u Lorazepam (Ativan) 1 mg IVP Q4H PRN PRN Reason: Agitation Last Admin: 02/27/18 14:06 Dose: 1 mg Multivitamins/Vitamin C (Multi-Delyn Liquid) 5 ml PO DAILY MILLIE Last Admin: 02/27/18 09:26 Dose: 5 ml Pantoprazole Sodium (Protonix Susp) 40 mg PO DAILY MILLIE Last Admin: 02/27/18 09:26 Dose: 40 mg Simethicone (Mylicon Chew Tab) 80 mg PO Q8 PRN PRN Reason: GI distress Last Admin: 02/18/18 20:28 Dose: 80 mg Thiamine HCl (Vitamin B1 Inj) 200 mg IV Q12H MILLIE Stop: 03/02/18 03:46 - Labs Labs: 02/27/18 06:23 02/27/18 06:23 PT 15.6 SECONDS (9.7-12.2) H 02/25/18 23:48 INR 1.4 02/25/18 23:48 APTT 29 SECONDS (21-34) 02/25/18 23:48 - Constitutional Appears: Cachectic, Chronically Ill - Head Exam Head Exam: NORMOCEPHALIC - Eye Exam Eye Exam: PERRL - ENT Exam ENT Exam: Mucous Membranes Dry - Neck Exam Neck Exam: absent: Lymphadenopathy - Respiratory Exam Respiratory Exam: Decreased Breath Sounds, Rhonchi - Cardiovascular Exam Cardiovascular Exam: REGULAR RHYTHM, +S1, +S2 - GI/Abdominal Exam GI & Abdominal Exam: Distended, Soft. absent: Tenderness - Rectal Exam Rectal Exam: Deferred - Exam Exam: NORMAL INSPECTION - Back Exam Back Exam: absent: CVA tenderness (L), CVA tenderness (R) - Neurological Exam Neurological Exam: Altered - Psychiatric Exam Psychiatric exam: Depressed - Skin Skin Exam: Dry Assessment and Plan (1) CHF (congestive heart failure) Status: Acute (2) COPD exacerbation Status: Acute (3) Dehydration Status: Acute - Assessment and Plan (Free Text) Assessment: severe neutropenic fever with sepsis secondary to strep and staph (MRSA) s/p chemo overall poor prognosis from outset on IV antibiotics
[2018-02-27] MEDS: Thiamine 100 mg/ml Inj IV SCH (17:03)
[2018-02-28] MEDS: (Novolog) Insulin Aspart, Recombinant 100 u/ml 10 ml vial SC SCH ×4 (00:55→17:49)
[2018-02-28] MEDS: Albuterol-Ipratrop 3 mg / 0.5 (3 ml) UD INH SCH ×4 (01:17→19:47)
[2018-02-28] MEDS: Sodium Chloride 0.9% 1,000 ML IV SCH (02:55)
[2018-02-28] MEDS: Propofol 10 mg/ml 1,000 MG/100 ML VIAL IV PRN ×4 (04:00→21:20)
[2018-02-28] MEDS: Meropenem 1 GM in Sodium Chloride 0.9% 100 ML IVPB SCH ×3 (04:05→22:54)
[2018-02-28] MEDS: Thiamine 100 mg/ml Inj IV SCH ×2 (04:05→16:14)
[2018-02-28 06:09] LABS: ABG ALLEN TEST POS; ARTERIAL BLOOD GAS HCO3 20.4 mmol/L (21-28); ARTERIAL BLOOD GAS O2 SAT 94.6 % (95-98); ARTERIAL BLOOD GAS PCO2 39 mm/Hg (35-45); ARTERIAL BLOOD GAS PH 7.32 (7.35-7.45); ARTERIAL BLOOD GAS PO2 64 mm/Hg (80-100); ARTERIAL BLOOD GAS TCO2 21.3 mmol/L (22-28)
[2018-02-28 06:22] LABS: BASO % 0.4 % (0.0-2.0); EOS % 0.1 % (0.0-4.0); HEMOGLOBIN 9.1 g/dL (11.0-16.0); LYMPH # 0.1 K/uL (1.0-4.3); LYMPH % 1.5 % (20.0-40.0); MEAN CELL VOLUME 79.7 fL (81.0-99.0); MEAN CORPUSCULAR HEMOGLOBIN 26.6 pg (27.0-31.0); MEAN CORPUSCULAR HGB CONC 33.4 g/dL (33.0-37.0); MEAN PLATELET VOLUME 8.7 fL (7.2-11.7); MONO % 0.2 % (0.0-10.0); NEUT # 3.5 K/uL (1.8-7.0); NEUT % 97.8 % (50.0-75.0); NRBC % 2.1 % (0.0-2.0); RED CELL DISTRIBUTION WIDTH 20.1 % (11.5-14.5); WHITE BLOOD COUNT 3.6 K/uL (4.8-10.8)
[2018-02-28 06:26] LABS: PLATELET COUNT 27 K/uL (130-400)
[2018-02-28 06:43] LABS: ALBUMIN 2.3 g/dL (3.5-5.0); CALCIUM 7.3 mg/dl (8.6-10.4)
[2018-02-28] MEDS: White Petrolatum/Mineral Oil Ophth Oint(3.5 gm) OU PRN (08:12)
[2018-02-28 09:07] LABS: ANISOCYTOSIS MODERATE; BANDS 9 % (0-2); LYMPHOCYTE 2 % (20-40); MONOCYTE 3 % (0-10); NEUTROPHIL 85 % (50-75); NUCLEATED RED BLOOD CELL 1 % (0-0); PLATELET ESTIMATE MARKEDLY DECREASED (NORMAL); REACTIVE LYMPHOCYTES 1 % (0-0); TOTAL CELLS COUNTED 100
[2018-02-28 09:08] LABS: POIKILOCYTOSIS SLIGHT
[2018-02-28 09:09] LABS: HYPOCHROMIC SLIGHT; OVALOCYTES SLIGHT
[2018-02-28 09:10] LABS: TOXIC GRANULATION PRESENT
[2018-02-28 09:15] LABS: MICROCYTOSIS MODERATE; TEARDROP CELLS SLIGHT
[2018-02-28] MEDS: Multiple Vitamins Oral Solution PO SCH (09:36)
[2018-02-28] MEDS: Pantoprazole 40 mg Susp UD PO SCH (09:36)
[2018-02-28] MEDS: Vancomycin 1 gm/NS 200 ml 1 GM/200 ML BAG IVPB SCH ×2 (09:37→09:46)
--- NOTE | 2018-02-28 10:25 | CP.PCM.PN ---
Subjective - Date & Time of Evaluation Date of Evaluation: 02/28/18 Time of Evaluation: 10:30 - Subjective Subjective: Patient with few et tube secretions, FiO2 increasing Objective - Vital Signs/Intake and Output Vital Signs (last 24 hours): Temp Pulse Resp BP Pulse Ox 97.9 F 88 22 115/73 96 02/28/18 04:00 02/28/18 09:00 02/28/18 09:00 02/28/18 09:53 02/28/18 09:00 Intake and Output: 02/28/18 02/28/18 06:59 18:59 Intake Total 2067.0 695.5 Output Total 250 Balance 2067.0 445.5 - Medications Medications: Current Medications Acetaminophen (Tylenol 325mg Tab) 650 mg PO Q6 PRN PRN Reason: pain Last Admin: 02/26/18 15:23 Dose: 650 mg Acetylcysteine (Acetylcysteine 20%) 6 ml PO Q12H MILLIE Stop: 03/01/18 22:31 Albumin Human (Albumin Human 25% (12.5 Gm/50 Ml)) 25 gm IV Q6H MILLIE Stop: 03/01/18 04:16 Albuterol/Ipratropium (Duoneb 3 Mg/0.5 Mg (3 Ml) Ud) 3 ml INH RQ6 MILLIE Last Admin: 02/28/18 07:31 Dose: 3 ml Artificial Tears (Lacri-Lube) 1 gm OU Q4 PRN PRN Reason: Dry eyes Last Admin: 02/28/18 08:12 Dose: 1 gm Hydrocortisone Sodium Succinate (Solu-Cortef) 100 mg IV Q8H MILLIE Last Admin: 02/28/18 08:08 Dose: 100 mg Micafungin Sodium 100 mg/ (Dextrose) 100 mls @ 100 mls/hr IV Q24H MILLIE PRN Reason: Protocol Last Admin: 02/27/18 13:16 Dose: 100 mls/hr Propofol (Diprivan) 1,000 mg in 100 mls @ 1.772 mls/hr IV .Q24H PRN; Protocol; 5 MCG/KG/MIN PRN Reason: TITRATE PER MD ORDER Last Admin: 02/28/18 09:35 Dose: 45 mcg/kg/min, 15.946 mls/hr Norepinephrine Bitartrate 4 mg (/ Sodium Chloride) 250 mls @ 15 mls/hr IV .[id number] PRN; Protocol; 4 MCG/MIN PRN Reason: TITRATE PER MD ORDER Last Admin: 02/28/18 09:53 Dose: 8 mcg/min, 30 mls/hr Vasopressin 40 units/ Sodium (Chloride) 40 mls @ 0.6 mls/hr IV .Q24H MILLIE; 0.01 UNITS/MIN PRN Reason: Protocol Last Admin: 02/27/18 11:13 Dose: Not Given Sodium Bicarbonate 150 meq/ (Dextrose) 1,150 mls @ 42 mls/hr IV .Q24H MILLIE Meropenem 1 gm/ Sodium (Chloride) 100 mls @ 100 mls/hr IVPB Q12H MILLIE PRN Reason: Protocol Insulin Aspart (Novolog) 0 unit SC Q6H MILLIE PRN Reason: Protocol Last Admin: 02/28/18 06:33 Dose: 2 u Lorazepam (Ativan) 1 mg IVP Q4H PRN PRN Reason: Agitation Last Admin: 02/27/18 19:14 Dose: 1 mg Multivitamins/Vitamin C (Multi-Delyn Liquid) 5 ml PO DAILY MILLIE Last Admin: 02/28/18 09:36 Dose: 5 ml Pantoprazole Sodium (Protonix Susp) 40 mg PO DAILY MILLIE Last Admin: 02/28/18 09:36 Dose: 40 mg Simethicone (Mylicon Chew Tab) 80 mg PO Q8 PRN PRN Reason: GI distress Last Admin: 02/18/18 20:28 Dose: 80 mg Thiamine HCl (Vitamin B1 Inj) 200 mg IV Q12H MILLIE Stop: 03/02/18 03:46 Last Admin: 02/28/18 04:05 Dose: 200 mg - Labs Labs: 02/28/18 06:14 02/28/18 06:14 PT 15.6 SECONDS (9.7-12.2) H 02/25/18 23:48 INR 1.4 02/25/18 23:48 APTT 29 SECONDS (21-34) 02/25/18 23:48 - Head Exam Head Exam: ATRAUMATIC, NORMAL INSPECTION, NORMOCEPHALIC - ENT Exam ENT Exam: Mucous Membranes Moist - Respiratory Exam Respiratory Exam: Clear to Ausculation Bilateral, Rhonchi - Cardiovascular Exam Cardiovascular Exam: REGULAR RHYTHM, +S1, +S2 - GI/Abdominal Exam GI & Abdominal Exam: Normal Bowel Sounds Assessment and Plan - Assessment and Plan (Free Text) Assessment: Patient seen and examined at bedside. Patient s/p chemo developed HAP. (+)MRSA sputum. Acute hypoxic respiratory failure-continue ventilation to keep spo2 >92 and pH b /w 7.35-7.45, continue bronchodilators -MRSA lobar PNA: abx as per ID, vanco on hold 2nd renal failure -SHock: contineu pressors to keep MAP >65, still on pressors -COPD: continue bronchodilators -ARLINE: avoid nephrotoxic drugs, continue IV hydratoin, ora mucomyst, renal consult -contine NG tube feeds -BGm q6hrs,ISS/aspart -DVT/PUD ppx -MOF cc time 35 minutes -prognosis poor
[2018-02-28] MEDS: Albumin Human 25% (12.5 gm/50 ml) IV SCH ×3 (11:09→22:53)
[2018-02-28] MEDS: Sodium Bicarbonate 8.4% 150 MEQ in Dextrose 5% In Water 1,000 ML IV SCH (11:31)
--- NOTE | 2018-02-28 11:49 | RAD ---
Chest x-ray single frontal view History: Intubated. Comparison: 02/27/2018 Findings: Lines and tubes in stable position. Right chest wall port in stable position. Dense bilateral pleural parenchymal opacities. Cardiomegaly. Calcification at the aortic knob. Degenerative changes in the spine and shoulders. Impression: Lines and tubes in stable position. Right chest wall port in stable position. Dense bilateral pleural parenchymal opacities. Cardiomegaly. Calcification at the aortic knob. Degenerative changes in the spine and shoulders.
[2018-02-28] MEDS: Micafungin 100 MG in Dextrose 5% In Water 100 ML IV SCH (13:23)
--- NOTE | 2018-02-28 19:13 | CP.PCM.PN ---
Subjective - Date & Time of Evaluation Date of Evaluation: 02/28/18 Time of Evaluation: 18:30 - Subjective Subjective: patient seen and examined On ventilatory support requiring high FiO2 Patient remained tachypneic Sedated on propofol On low dose vasopressin Of Levophed drip Positive fluid balance Objective - Vital Signs/Intake and Output Vital Signs (last 24 hours): Temp Pulse Resp BP Pulse Ox 97.2 F L 84 37 H 121/68 95 02/28/18 16:00 02/28/18 18:58 02/28/18 18:58 02/28/18 18:58 02/28/18 18:58 Intake and Output: 02/28/18 03/01/18 18:59 06:59 Intake Total 1774.0 115.7 Output Total 475 Balance 1299.0 115.7 - Medications Medications: Current Medications Acetaminophen (Tylenol 325mg Tab) 650 mg PO Q6 PRN PRN Reason: pain Last Admin: 02/26/18 15:23 Dose: 650 mg Acetylcysteine (Acetylcysteine 20%) 6 ml PO Q12H [facility] Stop: 03/01/18 22:31 Albumin Human (Albumin Human 25% (12.5 Gm/50 Ml)) 25 gm IV Q6H [facility] Stop: 03/01/18 04:16 Last Admin: 02/28/18 16:15 Dose: 25 gm Albuterol/Ipratropium (Duoneb 3 Mg/0.5 Mg (3 Ml) Ud) 3 ml INH RQ6 [facility] Last Admin: 02/28/18 13:29 Dose: 3 ml Artificial Tears (Lacri-Lube) 1 gm OU Q4 PRN PRN Reason: Dry eyes Last Admin: 02/28/18 08:12 Dose: 1 gm Hydrocortisone Sodium Succinate (Solu-Cortef) 100 mg IV Q8H [facility] Last Admin: 02/28/18 16:14 Dose: 100 mg Micafungin Sodium 100 mg/ (Dextrose) 100 mls @ 100 mls/hr IV Q24H [facility] PRN Reason: Protocol Last Admin: 02/28/18 13:23 Dose: 100 mls/hr Propofol (Diprivan) 1,000 mg in 100 mls @ 1.772 mls/hr IV .Q24H PRN; Protocol; 5 MCG/KG/MIN PRN Reason: TITRATE PER MD ORDER Last Titration: 02/28/18 19:04 Dose: 60 mcg/kg/min, 21.261 mls/hr Norepinephrine Bitartrate 4 mg (/ Sodium Chloride) 250 mls @ 15 mls/hr IV .[id number] PRN; Protocol; 4 MCG/MIN PRN Reason: TITRATE PER MD ORDER Last Titration: 02/28/18 18:00 Dose: 0 mcg/min, 0 mls/hr Vasopressin 40 units/ Sodium (Chloride) 40 mls @ 0.6 mls/hr IV .Q24H [facility]; 0.01 UNITS/MIN PRN Reason: Protocol Last Titration: 02/28/18 15:00 Dose: 0.04 units/min, 2.4 mls/hr Sodium Bicarbonate 150 meq/ (Dextrose) 1,150 mls @ 42 mls/hr IV .Q24H [facility] Last Admin: 02/28/18 11:31 Dose: 42 mls/hr Meropenem 1 gm/ Sodium (Chloride) 100 mls @ 100 mls/hr IVPB Q12H [facility] PRN Reason: Protocol Last Admin: 02/28/18 10:57 Dose: 100 mls/hr Insulin Aspart (Novolog) 0 unit SC Q6H [facility] PRN Reason: Protocol Last Admin: 02/28/18 17:49 Dose: 2 u Lorazepam (Ativan) 1 mg IVP Q4H PRN PRN Reason: Agitation Last Admin: 02/28/18 12:45 Dose: 1 mg Multivitamins/Vitamin C (Multi-Delyn Liquid) 5 ml PO DAILY [facility] Last Admin: 02/28/18 09:36 Dose: 5 ml Pantoprazole Sodium (Protonix Susp) 40 mg PO DAILY [facility] Last Admin: 02/28/18 09:36 Dose: 40 mg Simethicone (Mylicon Chew Tab) 80 mg PO Q8 PRN PRN Reason: GI distress Last Admin: 02/18/18 20:28 Dose: 80 mg Thiamine HCl (Vitamin B1 Inj) 200 mg IV Q12H [facility] Stop: 03/02/18 03:46 Last Admin: 02/28/18 16:14 Dose: 200 mg - Labs Labs: 02/28/18 06:14 02/28/18 06:14 PT 15.6 SECONDS (9.7-12.2) H 02/25/18 23:48 INR 1.4 02/25/18 23:48 APTT 29 SECONDS (21-34) 02/25/18 23:48 - Head Exam Head Exam: ATRAUMATIC, NORMOCEPHALIC - ENT Exam ENT Exam: Mucous Membranes Dry - Respiratory Exam Respiratory Exam: Rales - Cardiovascular Exam Cardiovascular Exam: REGULAR RHYTHM - GI/Abdominal Exam GI & Abdominal Exam: Soft, Normal Bowel Sounds - Extremities Exam Extremities Exam: Pedal Edema Assessment and Plan (1) Acute respiratory failure with hypoxia Assessment & Plan: Secondary to bilateral pneumonia Improving white count Continue antibiotics Propofol and Ativan Consider Lasix Secondary to positive fluid balance NG tube feed Status: Acute
[2018-02-28 21:48] LABS: BASO % 0.5 % (0.0-2.0); EOS % 0.6 % (0.0-4.0); LYMPH % 1.3 % (20.0-40.0); MEAN CELL VOLUME 79.8 fL (81.0-99.0); MEAN CORPUSCULAR HEMOGLOBIN 27.2 pg (27.0-31.0); MEAN PLATELET VOLUME 10.2 fL (7.2-11.7); MONO % 1.1 % (0.0-10.0); NEUT # 2.1 K/uL (1.8-7.0); NEUT % 96.5 % (50.0-75.0); NRBC % 2.8 % (0.0-2.0); RBC 2.38 Mil/uL (3.80-5.20); RED CELL DISTRIBUTION WIDTH 19.9 % (11.5-14.5); WHITE BLOOD COUNT 2.1 K/uL (4.8-10.8)
[2018-02-28 21:51] LABS: HEMOGLOBIN 6.5 g/dL (11.0-16.0)
[2018-02-28 21:52] LABS: PLATELET COUNT 19 K/uL (130-400)
[2018-02-28 22:28] LABS: BANDS 12 % (0-2); LYMPHOCYTE 1 % (20-40); METAMYELOCYTE 1 % (0-0); MONOCYTE 1 % (0-10); NEUTROPHIL 85 % (50-75); NUCLEATED RED BLOOD CELL 3 % (0-0); PLATELET ESTIMATE MARKEDLY DECREASED (NORMAL); TOTAL CELLS COUNTED 100
[2018-02-28 22:29] LABS: ANISOCYTOSIS SLIGHT; POIKILOCYTOSIS SLIGHT
[2018-02-28 22:30] LABS: HYPOCHROMIC SLIGHT; MICROCYTOSIS SLIGHT; TARGET CELLS SLIGHT; TEARDROP CELLS SLIGHT
--- NOTE | 2018-02-28 23:22 | CP.PCM.PN ---
Subjective - Date & Time of Evaluation Date of Evaluation: 02/28/18 Time of Evaluation: 12:15 - Subjective Subjective: clinically same Objective - Vital Signs/Intake and Output Vital Signs (last 24 hours): Temp Pulse Resp BP Pulse Ox 97.0 F L 78 14 118/63 95 02/28/18 20:00 02/28/18 21:00 02/28/18 21:00 02/28/18 20:58 02/28/18 21:00 Intake and Output: 02/28/18 03/01/18 18:59 06:59 Intake Total 1774.0 307.1 Output Total 475 60 Balance 1299.0 247.1 - Medications Medications: Current Medications Acetaminophen (Tylenol 325mg Tab) 650 mg PO Q6 PRN PRN Reason: pain Last Admin: 02/26/18 15:23 Dose: 650 mg Acetylcysteine (Acetylcysteine 20%) 6 ml PO Q12H [facility] Stop: 03/01/18 22:31 Albumin Human (Albumin Human 25% (12.5 Gm/50 Ml)) 25 gm IV Q6H [facility] Stop: 03/01/18 04:16 Last Admin: 02/28/18 22:53 Dose: 25 gm Albuterol/Ipratropium (Duoneb 3 Mg/0.5 Mg (3 Ml) Ud) 3 ml INH RQ6 [facility] Last Admin: 02/28/18 19:47 Dose: 3 ml Artificial Tears (Lacri-Lube) 1 gm OU Q4 PRN PRN Reason: Dry eyes Last Admin: 02/28/18 08:12 Dose: 1 gm Hydrocortisone Sodium Succinate (Solu-Cortef) 100 mg IV Q8H [facility] Last Admin: 02/28/18 16:14 Dose: 100 mg Micafungin Sodium 100 mg/ (Dextrose) 100 mls @ 100 mls/hr IV Q24H [facility] PRN Reason: Protocol Last Admin: 02/28/18 13:23 Dose: 100 mls/hr Propofol (Diprivan) 1,000 mg in 100 mls @ 1.772 mls/hr IV .Q24H PRN; Protocol; 5 MCG/KG/MIN PRN Reason: TITRATE PER MD ORDER Last Admin: 02/28/18 21:20 Dose: 60 mcg/kg/min, 21.261 mls/hr Norepinephrine Bitartrate 4 mg (/ Sodium Chloride) 250 mls @ 15 mls/hr IV .[id number] PRN; Protocol; 4 MCG/MIN PRN Reason: TITRATE PER MD ORDER Last Titration: 02/28/18 18:00 Dose: 0 mcg/min, 0 mls/hr Vasopressin 40 units/ Sodium (Chloride) 40 mls @ 0.6 mls/hr IV .Q24H [facility]; 0.01 UNITS/MIN PRN Reason: Protocol Last Titration: 02/28/18 15:00 Dose: 0.04 units/min, 2.4 mls/hr Sodium Bicarbonate 150 meq/ (Dextrose) 1,150 mls @ 42 mls/hr IV .Q24H [facility] Last Admin: 02/28/18 11:31 Dose: 42 mls/hr Meropenem 1 gm/ Sodium (Chloride) 100 mls @ 100 mls/hr IVPB Q12H [facility] PRN Reason: Protocol Last Admin: 02/28/18 22:54 Dose: 100 mls/hr Insulin Aspart (Novolog) 0 unit SC Q6H [facility] PRN Reason: Protocol Last Admin: 02/28/18 17:49 Dose: 2 u Lorazepam (Ativan) 1 mg IVP Q4H PRN PRN Reason: Agitation Last Admin: 02/28/18 12:45 Dose: 1 mg Multivitamins/Vitamin C (Multi-Delyn Liquid) 5 ml PO DAILY [facility] Last Admin: 02/28/18 09:36 Dose: 5 ml Pantoprazole Sodium (Protonix Susp) 40 mg PO DAILY [facility] Last Admin: 02/28/18 09:36 Dose: 40 mg Simethicone (Mylicon Chew Tab) 80 mg PO Q8 PRN PRN Reason: GI distress Last Admin: 02/18/18 20:28 Dose: 80 mg Thiamine HCl (Vitamin B1 Inj) 200 mg IV Q12H [facility] Stop: 03/02/18 03:46 Last Admin: 02/28/18 16:14 Dose: 200 mg - Labs Labs: 02/28/18 21:35 02/28/18 06:14 PT 15.6 SECONDS (9.7-12.2) H 02/25/18 23:48 INR 1.4 02/25/18 23:48 APTT 29 SECONDS (21-34) 02/25/18 23:48 - Constitutional Appears: Well - Head Exam Head Exam: ATRAUMATIC, NORMAL INSPECTION, NORMOCEPHALIC - Eye Exam Eye Exam: EOMI, Normal appearance, PERRL Pupil Exam: NORMAL ACCOMODATION, PERRL - ENT Exam ENT Exam: Mucous Membranes Moist, Normal Exam - Neck Exam Neck Exam: Full ROM, Normal Inspection. 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
[2018-03-01] MEDS ORDERED: (Novolog) Insulin Aspart, Recombinant 100 u/ml 10 ml vial SC SCH ×2 (01:21→01:24)
[2018-03-01] MEDS: (Novolog) Insulin Aspart, Recombinant 100 u/ml 10 ml vial SC SCH ×5 (01:38→18:04)
[2018-03-01] MEDS: Propofol 10 mg/ml 1,000 MG/100 ML VIAL IV PRN ×5 (01:38→21:52)
[2018-03-01] MEDS: Albuterol-Ipratrop 3 mg / 0.5 (3 ml) UD INH SCH ×4 (02:19→19:42)
[2018-03-01] MEDS: Thiamine 100 mg/ml Inj IV SCH ×2 (03:45→15:25)
[2018-03-01] MEDS: Albumin Human 25% (12.5 gm/50 ml) IV SCH (03:46)
[2018-03-01 06:30] LABS: ABG ALLEN TEST POS; ARTERIAL BLOOD GAS HCO3 20.2 mmol/L (21-28); ARTERIAL BLOOD GAS HEMOGLOBIN 9.5 g/dL (11.7-17.4); ARTERIAL BLOOD GAS O2 SAT 94.4 % (95-98); ARTERIAL BLOOD GAS PCO2 38 mm/Hg (35-45); ARTERIAL BLOOD GAS PH 7.32 (7.35-7.45); ARTERIAL BLOOD GAS PO2 60 mm/Hg (80-100); ARTERIAL BLOOD GAS TCO2 20.8 mmol/L (22-28)
[2018-03-01 06:57] LABS: ALB/GLOB RATIO 1.3 (1.0-2.1); ALBUMIN 2.5 g/dL (3.5-5.0)
--- NOTE | 2018-03-01 08:32 | RAD ---
Chest x-ray single frontal view History: Intubated. Comparison: 02/28/2018 Findings: Lines and tubes in stable position. Persistent diffuse bilateral pleural parenchymal opacities in both lung levin. Top normal heart size. Impression: No significant interval change.
[2018-03-01] MEDS: White Petrolatum/Mineral Oil Ophth Oint(3.5 gm) OU PRN ×2 (08:37→21:53)
[2018-03-01] MEDS: Multiple Vitamins Oral Solution PO SCH (09:32)
[2018-03-01] MEDS: Sucralfate 1 gm/10 ml Oral Susp UD PO SCH ×4 (10:30→21:32)
[2018-03-01] MEDS: Meropenem 1 GM in Sodium Chloride 0.9% 100 ML IVPB SCH (10:31)
--- NOTE | 2018-03-01 10:59 | CP.PCM.PN ---
Subjective - Date & Time of Evaluation Date of Evaluation: 03/01/18 Time of Evaluation: 10:58 - Subjective Subjective: Patient received 2 units of blood and 2 units of platelets, off pressors, Fio2 still 80% Objective - Vital Signs/Intake and Output Vital Signs (last 24 hours): Temp Pulse Resp BP Pulse Ox 97.5 F L 93 H 14 142/80 94 L 03/01/18 09:11 03/01/18 09:16 03/01/18 09:16 03/01/18 09:16 03/01/18 09:16 Intake and Output: 03/01/18 03/01/18 06:59 18:59 Intake Total 2480.0 619.9 Output Total 358 75 Balance 2122.0 544.9 - Medications Medications: Current Medications Acetaminophen (Tylenol 325mg Tab) 650 mg PO Q6 PRN PRN Reason: pain Last Admin: 02/26/18 15:23 Dose: 650 mg Acetylcysteine (Acetylcysteine 20%) 6 ml PO Q12H [facility] Stop: 03/01/18 22:31 Albuterol/Ipratropium (Duoneb 3 Mg/0.5 Mg (3 Ml) Ud) 3 ml INH RQ6 [facility] Artificial Tears (Lacri-Lube) 1 gm OU Q4 PRN PRN Reason: Dry eyes Last Admin: 03/01/18 08:37 Dose: 1 gm Micafungin Sodium 100 mg/ (Dextrose) 100 mls @ 100 mls/hr IV Q24H [facility] PRN Reason: Protocol Last Admin: 02/28/18 13:23 Dose: 100 mls/hr Propofol (Diprivan) 1,000 mg in 100 mls @ 1.772 mls/hr IV .Q24H PRN; Protocol; 5 MCG/KG/MIN PRN Reason: TITRATE PER MD ORDER Last Admin: 03/01/18 06:51 Dose: 60 mcg/kg/min, 21.261 mls/hr Sodium Bicarbonate 150 meq/ (Dextrose) 1,150 mls @ 42 mls/hr IV .Q24H [facility] Last Admin: 02/28/18 11:31 Dose: 42 mls/hr Meropenem 1 gm/ Sodium (Chloride) 100 mls @ 100 mls/hr IVPB Q12H [facility] PRN Reason: Protocol Last Admin: 03/01/18 10:31 Dose: 100 mls/hr Insulin Aspart (Novolog) 0 unit SC Q6H [facility] PRN Reason: Protocol Last Admin: 03/01/18 06:50 Dose: 3 units Lorazepam (Ativan) 1 mg IVP Q4H PRN PRN Reason: Agitation Last Admin: 03/01/18 09:32 Dose: 1 mg Multivitamins/Vitamin C (Multi-Delyn Liquid) 5 ml PO DAILY [facility] Last Admin: 03/01/18 09:32 Dose: 5 ml Pantoprazole Sodium (Protonix Inj) 40 mg IVP Q12H [facility] Last Admin: 03/01/18 10:30 Dose: 40 mg Simethicone (Mylicon Chew Tab) 80 mg PO Q8 PRN PRN Reason: GI distress Last Admin: 02/18/18 20:28 Dose: 80 mg Sucralfate (Carafate Oral Susp) 1 gm PO QID [facility] Last Admin: 03/01/18 10:30 Dose: 1 gm Thiamine HCl (Vitamin B1 Inj) 200 mg IV Q12H [facility] Stop: 03/02/18 03:46 Last Admin: 03/01/18 03:45 Dose: 200 mg - Labs Labs: 02/28/18 21:35 03/01/18 06:30 PT 15.6 SECONDS (9.7-12.2) H 02/25/18 23:48 INR 1.4 02/25/18 23:48 APTT 29 SECONDS (21-34) 02/25/18 23:48 Assessment and Plan - Assessment and Plan (Free Text) Assessment: Patient seen and examined at bedside. Patient s/p chemo developed HAP. (+)MRSA sputum. -Acute hypoxic respiratory failure-continue ventilation to keep spo2 >92 and pH b/w 7.35-7.45, continue bronchodilators -MRSA lobar PNA: abx as per ID, vanco on hold 2nd renal failure -ACute blood loss anemia: BUN high, suspect upper GI blees, start protonix + carafate,transfuse PRBC to keep hb/hct >8/24, transfuse 2 untis of plateelts -SHock: resolved off pressors -COPD: continue bronchodilators -ARLINE: avoid nephrotoxic drugs, continue IV hydratoin, ora mucomyst, renal consult -contine NG tube feeds -BGm q6hrs,ISS/aspart -DVT/PUD ppx: SCDs/protonix -MOF cc time 32 minutes -prognosis poor d/w Daughter
--- NOTE | 2018-03-01 11:25 | CP.PCM.PN ---
Subjective - Date & Time of Evaluation Date of Evaluation: 03/01/18 Time of Evaluation: 12:45 - Subjective Subjective: clinically same Objective - Vital Signs/Intake and Output Vital Signs (last 24 hours): Temp Pulse Resp BP Pulse Ox 97.5 F L 93 H 14 142/80 94 L 03/01/18 09:11 03/01/18 09:16 03/01/18 09:16 03/01/18 09:16 03/01/18 09:16 Intake and Output: 03/01/18 03/01/18 06:59 18:59 Intake Total 2480.0 619.9 Output Total 358 75 Balance 2122.0 544.9 - Medications Medications: Current Medications Acetaminophen (Tylenol 325mg Tab) 650 mg PO Q6 PRN PRN Reason: pain Last Admin: 02/26/18 15:23 Dose: 650 mg Acetylcysteine (Acetylcysteine 20%) 6 ml PO Q12H [facility] Stop: 03/01/18 22:31 Albuterol/Ipratropium (Duoneb 3 Mg/0.5 Mg (3 Ml) Ud) 3 ml INH RQ6 [facility] Artificial Tears (Lacri-Lube) 1 gm OU Q4 PRN PRN Reason: Dry eyes Last Admin: 03/01/18 08:37 Dose: 1 gm Micafungin Sodium 100 mg/ (Dextrose) 100 mls @ 100 mls/hr IV Q24H [facility] PRN Reason: Protocol Last Admin: 02/28/18 13:23 Dose: 100 mls/hr Propofol (Diprivan) 1,000 mg in 100 mls @ 1.772 mls/hr IV .Q24H PRN; Protocol; 5 MCG/KG/MIN PRN Reason: TITRATE PER MD ORDER Last Admin: 03/01/18 06:51 Dose: 60 mcg/kg/min, 21.261 mls/hr Sodium Bicarbonate 150 meq/ (Dextrose) 1,150 mls @ 42 mls/hr IV .Q24H [facility] Last Admin: 02/28/18 11:31 Dose: 42 mls/hr Meropenem 1 gm/ Sodium (Chloride) 100 mls @ 100 mls/hr IVPB Q12H [facility] PRN Reason: Protocol Last Admin: 03/01/18 10:31 Dose: 100 mls/hr Desmopressin Acetate 21 mcg/ (Sodium Chloride) 55.25 mls @ 100 mls/hr IV ONCE ONE Stop: 03/01/18 11:53 Insulin Aspart (Novolog) 0 unit SC Q6H [facility] PRN Reason: Protocol Last Admin: 03/01/18 06:50 Dose: 3 units Lorazepam (Ativan) 1 mg IVP Q4H PRN PRN Reason: Agitation Last Admin: 03/01/18 09:32 Dose: 1 mg Multivitamins/Vitamin C (Multi-Delyn Liquid) 5 ml PO DAILY [facility] Last Admin: 03/01/18 09:32 Dose: 5 ml Pantoprazole Sodium (Protonix Inj) 40 mg IVP Q12H [facility] Last Admin: 03/01/18 10:30 Dose: 40 mg Simethicone (Mylicon Chew Tab) 80 mg PO Q8 PRN PRN Reason: GI distress Last Admin: 02/18/18 20:28 Dose: 80 mg Sucralfate (Carafate Oral Susp) 1 gm PO QID [facility] Last Admin: 03/01/18 10:30 Dose: 1 gm Thiamine HCl (Vitamin B1 Inj) 200 mg IV Q12H [facility] Stop: 03/02/18 03:46 Last Admin: 03/01/18 03:45 Dose: 200 mg - Labs Labs: 02/28/18 21:35 03/01/18 06:30 PT 15.6 SECONDS (9.7-12.2) H 02/25/18 23:48 INR 1.4 02/25/18 23:48 APTT 29 SECONDS (21-34) 02/25/18 23:48 - Constitutional Appears: Well - Head Exam Head Exam: ATRAUMATIC, NORMAL INSPECTION, NORMOCEPHALIC - Eye Exam Eye Exam: EOMI, Normal appearance, PERRL Pupil Exam: NORMAL ACCOMODATION, PERRL - ENT Exam ENT Exam: Mucous Membranes Moist, Normal Exam - Neck Exam Neck Exam: Full ROM, Normal Inspection. 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
[2018-03-01] MEDS: Acetylcysteine 20% Inhal Soln (4ml) PO SCH ×2 (11:31→22:31)
[2018-03-01] MEDS: Micafungin 100 MG in Dextrose 5% In Water 100 ML IV SCH (12:16)
[2018-03-01 13:44] LABS: BASO % 0.4 % (0.0-2.0); EOS % 0.8 % (0.0-4.0); LYMPH % 0.8 % (20.0-40.0); MEAN CELL VOLUME 80.6 fL (81.0-99.0); MEAN CORPUSCULAR HEMOGLOBIN 28.4 pg (27.0-31.0); MEAN CORPUSCULAR HGB CONC 35.2 g/dL (33.0-37.0); MEAN PLATELET VOLUME 6.7 fL (7.2-11.7); MONO % 0.2 % (0.0-10.0); NEUT % 97.8 % (50.0-75.0); NRBC % 1.4 % (0.0-2.0); RBC 3.08 Mil/uL (3.80-5.20); RED CELL DISTRIBUTION WIDTH 19.3 % (11.5-14.5)
[2018-03-01 13:51] LABS: HEMOGLOBIN 8.7 g/dL (11.0-16.0); PLATELET COUNT 18 K/uL (130-400); WHITE BLOOD COUNT 4.1 K/uL (4.8-10.8)
[2018-03-01 14:23] LABS: BANDS 11 % (0-2); LYMPHOCYTE 1 % (20-40); MONOCYTE 1 % (0-10); NEUTROPHIL 87 % (50-75); TOTAL CELLS COUNTED 100
[2018-03-01 14:24] LABS: ANISOCYTOSIS MODERATE; HYPOCHROMIC SLIGHT; PLATELET ESTIMATE MARKEDLY DECREASED (NORMAL); POIKILOCYTOSIS SLIGHT; POLYCHROMIC SLIGHT; TOXIC GRANULATION PRESENT
[2018-03-01 14:25] LABS: OVALOCYTES SLIGHT
--- NOTE | 2018-03-01 14:43 | CP.PCM.PN ---
Subjective - Date & Time of Evaluation Date of Evaluation: 03/01/18 Time of Evaluation: 08:00 - Subjective Subjective: off pressors but still requires high FiO2 Vanco on hold worsening renal function IV zyvox added to merrem and mycamine Objective - Vital Signs/Intake and Output Vital Signs (last 24 hours): Temp Pulse Resp BP Pulse Ox 97.7 F 89 26 H 118/66 92 L 03/01/18 12:00 03/01/18 14:03 03/01/18 14:03 03/01/18 14:03 03/01/18 14:03 Intake and Output: 03/01/18 03/01/18 06:59 18:59 Intake Total 2480.0 1636.4 Output Total 358 75 Balance 2122.0 1561.4 - Medications Medications: Current Medications Acetaminophen (Tylenol 325mg Tab) 650 mg PO Q6 PRN PRN Reason: pain Last Admin: 02/26/18 15:23 Dose: 650 mg Acetylcysteine (Acetylcysteine 20%) 6 ml PO Q12H [facility] Stop: 03/01/18 22:31 Last Admin: 03/01/18 11:31 Dose: 6 ml Albuterol/Ipratropium (Duoneb 3 Mg/0.5 Mg (3 Ml) Ud) 3 ml INH RQ6 [facility] Last Admin: 03/01/18 13:23 Dose: 3 ml Artificial Tears (Lacri-Lube) 1 gm OU Q4 PRN PRN Reason: Dry eyes Last Admin: 03/01/18 08:37 Dose: 1 gm Micafungin Sodium 100 mg/ (Dextrose) 100 mls @ 100 mls/hr IV Q24H [facility] PRN Reason: Protocol Last Admin: 03/01/18 12:16 Dose: 100 mls/hr Propofol (Diprivan) 1,000 mg in 100 mls @ 1.772 mls/hr IV .Q24H PRN; Protocol; 5 MCG/KG/MIN PRN Reason: TITRATE PER MD ORDER Last Admin: 03/01/18 11:23 Dose: 60 mcg/kg/min, 21.261 mls/hr Sodium Bicarbonate 150 meq/ (Dextrose) 1,150 mls @ 42 mls/hr IV .Q24H [facility] Last Admin: 02/28/18 11:31 Dose: 42 mls/hr Meropenem 1 gm/ Sodium (Chloride) 100 mls @ 100 mls/hr IVPB Q12H [facility] PRN Reason: Protocol Last Admin: 03/01/18 10:31 Dose: 100 mls/hr Linezolid (Zyvox 600mg/300ml D5w) 600 mg in 300 mls @ 200 mls/hr IVPB Q12H [facility] PRN Reason: Protocol Insulin Aspart (Novolog) 0 unit SC Q6H [facility] PRN Reason: Protocol Last Admin: 03/01/18 12:20 Dose: 4 units Lorazepam (Ativan) 1 mg IVP Q4H PRN PRN Reason: Agitation Last Admin: 03/01/18 09:32 Dose: 1 mg Multivitamins/Vitamin C (Multi-Delyn Liquid) 5 ml PO DAILY [facility] Last Admin: 03/01/18 09:32 Dose: 5 ml Pantoprazole Sodium (Protonix Inj) 40 mg IVP Q12H [facility] Last Admin: 03/01/18 10:30 Dose: 40 mg Simethicone (Mylicon Chew Tab) 80 mg PO Q8 PRN PRN Reason: GI distress Last Admin: 02/18/18 20:28 Dose: 80 mg Sucralfate (Carafate Oral Susp) 1 gm PO QID [facility] Last Admin: 03/01/18 10:30 Dose: 1 gm Thiamine HCl (Vitamin B1 Inj) 200 mg IV Q12H [facility] Stop: 03/02/18 03:46 Last Admin: 03/01/18 03:45 Dose: 200 mg - Labs Labs: 03/01/18 13:41 03/01/18 06:30 PT 15.6 SECONDS (9.7-12.2) H 02/25/18 23:48 INR 1.4 02/25/18 23:48 APTT 29 SECONDS (21-34) 02/25/18 23:48 - Constitutional Appears: Chronically Ill - Head Exam Head Exam: NORMOCEPHALIC - Eye Exam Eye Exam: absent: Scleral icterus - ENT Exam ENT Exam: Mucous Membranes Dry - Neck Exam Neck Exam: Normal Inspection - Respiratory Exam Respiratory Exam: Decreased Breath Sounds, Rhonchi - Cardiovascular Exam Cardiovascular Exam: REGULAR RHYTHM - GI/Abdominal Exam GI & Abdominal Exam: Distended, Soft, Diminished Bowel Sounds. absent: Tenderness - Rectal Exam Rectal Exam: Deferred - Exam Exam: NORMAL INSPECTION - Extremities Exam Extremities Exam: Pedal Edema - Back Exam Back Exam: absent: CVA tenderness (L), CVA tenderness (R) - Neurological Exam Neurological Exam: Altered - Psychiatric Exam Psychiatric exam: Depressed - Skin Skin Exam: Dry Assessment and Plan (1) CHF (congestive heart failure) Status: Acute (2) COPD exacerbation Status: Acute (3) Dehydration Status: Acute - Assessment and Plan (Free Text) Assessment: severe sepsis/ septic shock/ pneumonia / ARDS/ resp failure s/p chemo induced neutropenia for CA off pressors but still requires high FiO2 Vanco on hold worsening renal function IV zyvox added to merrem and mycamine prognosis poor
[2018-03-01] MEDS: Linezolid 600 mg in D5W 300 ml 600 MG/300 ML BAG IVPB SCH (17:03)
[2018-03-01] MEDS ORDERED: Albumin Human 25% (12.5 gm/50 ml) IV SCH (18:00)
[2018-03-01] MEDS ORDERED: Potassium Chloride 20 mEq/15 ml LIQ UD PO ONE (18:45)
[2018-03-01] MEDS ORDERED: metOLazone 5 MG TAB PO ONE (18:46)
[2018-03-01] MEDS: Sodium Bicarbonate 8.4% 150 MEQ in Dextrose 5% In Water 1,000 ML IV SCH (19:33)
[2018-03-01] MEDS ORDERED: Potassium Chloride 20 mEq ER Tab PO STA (21:17)
[2018-03-01 22:19] LABS: HEMOGLOBIN 9.2 g/dL (11.0-16.0); MEAN CELL VOLUME 82.7 fL (81.0-99.0); MEAN CORPUSCULAR HEMOGLOBIN 28.4 pg (27.0-31.0); MEAN CORPUSCULAR HGB CONC 34.3 g/dL (33.0-37.0); MEAN PLATELET VOLUME 8.6 fL (7.2-11.7); PLATELET COUNT 48 K/uL (130-400); RBC 3.26 Mil/uL (3.80-5.20); RED CELL DISTRIBUTION WIDTH 19.5 % (11.5-14.5); WHITE BLOOD COUNT 6.6 K/uL (4.8-10.8)
[2018-03-01 22:43] LABS: BANDS 17 % (0-2); EOSINOPHIL 1 % (0-4); LYMPHOCYTE 1 % (20-40); MONOCYTE 1 % (0-10); NEUTROPHIL 80 % (50-75); TOTAL CELLS COUNTED 100
[2018-03-01 22:44] LABS: ANISOCYTOSIS SLIGHT; HYPOCHROMIC SLIGHT; MICROCYTOSIS SLIGHT; PLATELET ESTIMATE MARKEDLY DECREASED (NORMAL); POIKILOCYTOSIS SLIGHT
[2018-03-01 22:55] LABS: BASO % 0.6 % (0.0-2.0); EOS % 0.1 % (0.0-4.0); LYMPH # 0.1 K/uL (1.0-4.3); LYMPH % 0.8 % (20.0-40.0); MONO % 0.2 % (0.0-10.0); NEUT # 6.5 K/uL (1.8-7.0); NEUT % 98.3 % (50.0-75.0); NRBC % 1.4 % (0.0-2.0)
[2018-03-02] MEDS: (Novolog) Insulin Aspart, Recombinant 100 u/ml 10 ml vial SC SCH ×4 (00:26→17:36)
[2018-03-02] MEDS: Albuterol-Ipratrop 3 mg / 0.5 (3 ml) UD INH SCH ×4 (01:19→19:15)
[2018-03-02] MEDS: Propofol 10 mg/ml 1,000 MG/100 ML VIAL IV PRN ×5 (01:55→23:29)
[2018-03-02] MEDS: Thiamine 100 mg/ml Inj IV SCH (04:02)
[2018-03-02] MEDS: Linezolid 600 mg in D5W 300 ml 600 MG/300 ML BAG IVPB SCH ×2 (04:03→16:30)
[2018-03-02] MEDS: MethylPREDNISolone 40 mg Vial IVP SCH ×3 (04:14→20:20)
[2018-03-02 04:48] LABS: ARTERIAL BLOOD GAS HCO3 19.2 mmol/L (21-28); ARTERIAL BLOOD GAS O2 SAT 92.1 % (95-98); ARTERIAL BLOOD GAS PCO2 52 mm/Hg (35-45); ARTERIAL BLOOD GAS PH 7.22 (7.35-7.45); ARTERIAL BLOOD GAS PO2 58 mm/Hg (80-100); ARTERIAL BLOOD GAS TCO2 22.9 mmol/L (22-28)
[2018-03-02 06:28] LABS: MEAN CORPUSCULAR HGB CONC 34.6 g/dL (33.0-37.0); MEAN PLATELET VOLUME 9.8 fL (7.2-11.7); PLATELET COUNT 40 K/uL (130-400); RED CELL DISTRIBUTION WIDTH 19.8 % (11.5-14.5); WHITE BLOOD COUNT 6.3 K/uL (4.8-10.8)
[2018-03-02 06:52] LABS: ALB/GLOB RATIO 1.2 (1.0-2.1); ALBUMIN 2.5 g/dL (3.5-5.0); CALCIUM 7.1 mg/dl (8.6-10.4)
--- NOTE | 2018-03-02 08:36 | RAD ---
Date of service: 03/02/2018 HISTORY: on the vent FIO2 100%, desaturating COMPARISON: 03/01/2018. FINDINGS: Endotracheal tube terminates 4.8 cm proximal to the meagan. The right MediPort terminates in the SVC. LUNGS: There is interval worsening with confluent airspace disease in both perihilar regions. PLEURA: No significant pleural effusion identified, no pneumothorax apparent. CARDIOVASCULAR: Normal. OSSEOUS STRUCTURES: No significant abnormalities. VISUALIZED UPPER ABDOMEN: Normal. OTHER FINDINGS: None. IMPRESSION: Findings are most compatible with worsening pulmonary edema.
[2018-03-02 08:53] LABS: LYMPH # 0.1 K/uL (1.0-4.3); MONO # 0.1 K/uL (0.0-0.8); NEUT # 6.1 K/uL (1.8-7.0)
[2018-03-02 08:59] LABS: ANISOCYTOSIS MODERATE; BANDS 16 % (0-2); HYPOCHROMIC SLIGHT; LYMPHOCYTE 1 % (20-40); METAMYELOCYTE 3 % (0-0); MONOCYTE 1 % (0-10); MYELOCYTE 1 % (0-0); NEUTROPHIL 78 % (50-75); PLATELET ESTIMATE DECREASED (NORMAL); POLYCHROMIC SLIGHT; TOTAL CELLS COUNTED 100
[2018-03-02 09:00] LABS: OVALOCYTES SLIGHT; POIKILOCYTOSIS SLIGHT
[2018-03-02 09:02] LABS: TOXIC GRANULATION PRESENT
[2018-03-02] MEDS: Sucralfate 1 gm/10 ml Oral Susp UD PO SCH ×4 (10:09→21:29)
[2018-03-02] MEDS: Multiple Vitamins Oral Solution PO SCH (10:10)
--- NOTE | 2018-03-02 12:08 | CP.PCM.PN ---
Subjective - Date & Time of Evaluation Date of Evaluation: 03/02/18 Time of Evaluation: 07:00 - Subjective Subjective: intubated sedated Objective - Vital Signs/Intake and Output Vital Signs (last 24 hours): Temp Pulse Resp BP Pulse Ox 97.3 F L 89 11 L 111/66 85 L 03/02/18 08:00 03/02/18 11:03 03/02/18 11:03 03/02/18 11:03 03/02/18 11:03 Intake and Output: 03/02/18 03/02/18 06:59 18:59 Intake Total 907.6 242.1 Output Total 890 250 Balance 17.6 -7.9 - Medications Medications: Current Medications Albuterol/Ipratropium (Duoneb 3 Mg/0.5 Mg (3 Ml) Ud) 3 ml INH RQ6 [facility] Last Admin: 03/02/18 07:59 Dose: 3 ml Artificial Tears (Lacri-Lube) 1 gm OU Q4 PRN PRN Reason: Dry eyes Last Admin: 03/01/18 21:53 Dose: 1 gm Micafungin Sodium 100 mg/ (Dextrose) 100 mls @ 100 mls/hr IV Q24H [facility] PRN Reason: Protocol Last Admin: 03/01/18 12:16 Dose: 100 mls/hr Propofol (Diprivan) 1,000 mg in 100 mls @ 1.772 mls/hr IV .Q24H PRN; Protocol; 5 MCG/KG/MIN PRN Reason: TITRATE PER MD ORDER Last Admin: 03/02/18 06:57 Dose: 60 mcg/kg/min, 21.261 mls/hr Sodium Bicarbonate 150 meq/ (Dextrose) 1,150 mls @ 42 mls/hr IV .Q24H [facility] Last Admin: 03/01/18 19:33 Dose: 42 mls/hr Linezolid (Zyvox 600mg/300ml D5w) 600 mg in 300 mls @ 200 mls/hr IVPB Q12H [facility] PRN Reason: Protocol Last Admin: 03/02/18 04:03 Dose: 200 mls/hr Meropenem 1 gm/ Sodium (Chloride) 50 mls @ 100 mls/hr IVPB Q12H [facility] PRN Reason: Protocol Last Admin: 03/02/18 10:22 Dose: 100 mls/hr Insulin Aspart (Novolog) 0 unit SC Q6H [facility] PRN Reason: Protocol Last Admin: 03/02/18 05:49 Dose: 3 units Lorazepam (Ativan) 1 mg IVP Q4H PRN PRN Reason: Agitation Last Admin: 03/01/18 09:32 Dose: 1 mg Methylprednisolone (Solu-Medrol) 40 mg IVP Q8H [facility] Last Admin: 03/02/18 04:14 Dose: 40 mg Multivitamins/Vitamin C (Multi-Delyn Liquid) 5 ml PO DAILY [facility] Last Admin: 03/02/18 10:10 Dose: 5 ml Pantoprazole Sodium (Protonix Inj) 40 mg IVP Q12H [facility] Last Admin: 03/02/18 10:10 Dose: 40 mg Sucralfate (Carafate Oral Susp) 1 gm PO QID [facility] Last Admin: 03/02/18 10:09 Dose: 1 gm - Labs Labs: 03/02/18 06:19 03/02/18 06:16 PT 15.6 SECONDS (9.7-12.2) H 02/25/18 23:48 INR 1.4 02/25/18 23:48 APTT 29 SECONDS (21-34) 02/25/18 23:48 - Constitutional Appears: Confused, Cachectic, Chronically Ill - Head Exam Head Exam: NORMOCEPHALIC - Eye Exam Eye Exam: absent: Scleral icterus - ENT Exam ENT Exam: Mucous Membranes Dry - Neck Exam Neck Exam: absent: Lymphadenopathy - Respiratory Exam Respiratory Exam: Decreased Breath Sounds, Rhonchi - Cardiovascular Exam Cardiovascular Exam: REGULAR RHYTHM - GI/Abdominal Exam GI & Abdominal Exam: Distended, Soft - Rectal Exam Rectal Exam: Deferred - Extremities Exam Extremities Exam: Pedal Edema - Back Exam Back Exam: absent: CVA tenderness (L), CVA tenderness (R), paraspinal tenderness - Neurological Exam Neurological Exam: Altered Assessment and Plan (1) CHF (congestive heart failure) Status: Acute (2) COPD exacerbation Status: Acute (3) Dehydration Status: Acute - Assessment and Plan (Free Text) Assessment: still requires high FiO2 Vanco on hold worsening renal function IV zyvox added to merrem and mycamine
[2018-03-02] MEDS: Micafungin 100 MG in Dextrose 5% In Water 100 ML IV SCH (12:46)
--- NOTE | 2018-03-02 13:24 | CP.CCUPN ---
CCU Subjective - Physician Review Subjective (Free Text): ICU Progress note Patient seen and examined at bedside. Patient is intubated and unable to provide history. Daughter present at bedside. CCU Objective - Vital Signs / Intake & Output Vital Signs (Last 4 hours): Vital Signs Pulse Resp BP Pulse Ox 03/02/18 11:03 89 11 L 111/66 85 L 03/02/18 11:00 93 H 16 88 L 03/02/18 10:33 96 H 19 117/58 L 87 L 03/02/18 10:03 93 H 11 L 127/61 88 L 03/02/18 10:00 90 26 H 88 L 03/02/18 09:33 91 H 10 L 124/59 L 89 L Intake and Output (Last 8hrs): Intake & Output 03/01/18 03/02/18 03/02/18 22:59 06:59 14:59 Intake Total 1430.4 370.4 497.5 Output Total 300 590 400 Balance 1130.4 -219.6 97.5 Weight 147 lb 3.2 oz Intake: IV 200 200 100 Intake, IV Amount 1180.4 170.4 327.5 Right Distal Port Port-A- 170.4 170.4 127.5 Cath Right Forearm 800 Right Port-A-Cath 200 Right Portocath Y port 210 0 0 Tube Feeding 50 0 70 Output: Urine 300 590 400 Urethral ([place]) 300 590 400 Other: # Bowel Movements 1 1 - Physical Exam Head: Positive for: Atraumatic, Normocephalic Mouth: Positive for: Dry, Other (Intubated, ETT in place) Respiratory/Chest: Positive for: Decreased Breath Sounds Cardiovascular: Positive for: Normal S1, S2, Other (portacath R chest) Abdomen: Positive for: Normal Bowel Sounds. Negative for: Tenderness, Distention, Peritoneal Signs Upper Extremity: Positive for: Edema (Bilateral upper extremity edema), NORMAL PULSES (radial pulses ) Lower Extremity: Positive for: NORMAL PULSES, Other (scds in place). Negative for: Edema Skin: Positive for: Warm, Dry - Medications Active Medications: Active Medications Generic Name Dose Route Start Last Admin Trade Name Freq PRN Reason Stop Dose Admin Albuterol/Ipratropium 3 ml 03/01/18 14:00 03/02/18 13:20 Duoneb 3 Mg/0.5 Mg (3 Ml) Ud INH 3 ml RQ6 MILLIE Administration Artificial Tears 1 gm 02/27/18 20:36 03/01/18 21:53 Lacri-Lube OU 1 gm Q4 PRN Administration Dry eyes Micafungin Sodium 100 mg/ 100 mls @ 100 mls/hr 02/24/18 13:00 03/02/18 12:46 Dextrose IV 100 mls/hr Q24H MILLIE Administration Protocol Propofol 1,000 mg in 100 mls @ 1.772 mls/hr 02/25/18 15:35 03/02/18 12:10 Diprivan IV 50 mcg/kg/min .Q24H PRN 17.717 mls/hr TITRATE PER MD ORDER Administration Protocol 5 MCG/KG/MIN Sodium Bicarbonate 150 meq/ 1,150 mls @ 42 mls/hr 02/28/18 11:00 03/01/18 19: 33 Dextrose IV 42 mls/hr .Q24H MILLIE Administration Linezolid 600 mg in 300 mls @ 200 mls/hr 03/01/18 16:00 03/02/18 04:03 Zyvox 600mg/300ml D5w IVPB 200 mls/hr Q12H MILLIE Administration Protocol Meropenem 1 gm/ Sodium 50 mls @ 100 mls/hr 03/01/18 23:00 03/02/18 10:22 Chloride IVPB 100 mls/hr Q12H MILLIE Administration Protocol Insulin Aspart 0 unit 03/01/18 06:00 03/02/18 12:45 Novolog SC 3 units Q6H MILLIE Administration Protocol Lorazepam 1 mg 02/26/18 11:01 03/01/18 09:32 Ativan IVP 1 mg Q4H PRN Administration Agitation Methylprednisolone 40 mg 03/02/18 04:15 03/02/18 12:45 Solu-Medrol IVP 40 mg Q8H MILLIE Administration Multivitamins/Vitamin C 5 ml 02/24/18 10:15 03/02/18 10:10 Multi-Delyn Liquid PO 5 ml DAILY MILLIE Administration Pantoprazole Sodium 40 mg 03/01/18 09:30 03/02/18 10:10 Protonix Inj IVP 40 mg Q12H MILLIE Administration Sucralfate 1 gm 03/01/18 10:00 03/02/18 13:13 Carafate Oral Susp PO 1 gm QID MILLIE Administration - Patient Studies Lab Studies: Microbiology Studies 02/25/18 05:55 Blood Culture - Final Blood-Thru Central Line NO GROWTH AFTER 5 DAYS Gram Stain - Final TEST NOT PERFORMED 02/25/18 05:55 Blood Culture - Final Blood-Thru Central Line NO GROWTH AFTER 5 DAYS Gram Stain - Final TEST NOT PERFORMED Lab Studies 03/02/18 03/02/18 03/02/18 Range/Units 11:21 06:19 06:16 WBC 6.3 (4.8-10.8) K/uL RBC 3.20 L (3.80-5.20) Mil/uL Hgb 9.0 L (11.0-16.0) g/dL Hct 25.9 L (34.0-47.0) % MCV 81.0 (81.0-99.0) fL MCH 28.0 (27.0-31.0) pg MCHC 34.6 (33.0-37.0) g/dL RDW 19.8 H (11.5-14.5) % Plt Count 40 L (130-400) K/uL MPV 9.8 (7.2-11.7) fL Neut % (Auto) 98.0 H (50.0-75.0) % Lymph % (Auto) 1.0 L (20.0-40.0) % [place] % (Auto) 1.0 (0.0-10.0) % Eos % (Auto) 0.0 (0.0-4.0) % Baso % (Auto) 0.0 (0.0-2.0) % Neut # (Auto) 6.1 (1.8-7.0) K/uL Lymph # (Auto) 0.1 L (1.0-4.3) K/uL [place] # (Auto) 0.1 (0.0-0.8) K/uL Eos # (Auto) 0.0 (0.0-0.7) K/uL Baso # (Auto) 0.0 (0.0-0.2) K/uL Neutrophils % (Manual) 78 H (50-75) % Band Neutrophils % 16 H* (0-2) % Lymphocytes % (Manual) 1 L (20-40) % Monocytes % (Manual) 1 (0-10) % Eosinophils % (Manual) (0-4) % Metamyelocytes % 3 H (0-0) % Myelocytes % 1 H (0-0) % Toxic Granulation Present Platelet Estimate Decreased L (NORMAL) Polychromasia Slight Hypochromasia (manual) Slight Poikilocytosis (manual Slight Anisocytosis (manual) Moderate Microcytosis (manual) Ovalocytes Slight Puncture Site pCO2 (35-45) mm/Hg pO2 (80-100) mm/Hg HCO3 (21-28) mmol/L ABG pH (7.35-7.45) ABG Total CO2 (22-28) mmol/L ABG O2 Saturation (95-98) % ABG Base Excess (-2.0-3.0) mmol/L Chepe Test ABG Potassium (3.6-5.2) mmol/L A-a O2 Difference mm/Hg Respiratory Index Sodium (132-148) mmol/l Chloride (98-107) mmol/L Glucose (65-105) mg/dl Lactate (0.7-2.1) mmol/L Vent Mode Mechanical Rate FiO2 % Tidal Volume PEEP Potassium (3.6-5.2) mmol/L Carbon Dioxide (22-30) mmol/L Anion Gap (10-20) BUN (7-17) mg/dL Creatinine (0.7-1.2) mg/dL Est GFR ( Amer) Est GFR (Non-Af Amer) POC Glucose (mg/dL) 285 H (65-110) mg/dL Random Glucose (65-105) mg/dL Calcium (8.6-10.4) mg/dl Phosphorus (2.5-4.5) mg/dL Magnesium (1.6-2.3) mg/dL Total Bilirubin (0.2-1.3) mg/dL AST (14-36) U/L ALT (9-52) U/L Alkaline Phosphatase (38-126) U/L Total Protein (6.3-8.3) g/dL Albumin (3.5-5.0) g/dL Globulin (2.2-3.9) gm/dL Albumin/Globulin Ratio (1.0-2.1) Arterial Blood Potassium (3.6-5.2) mmol/L Random Vancomycin 29.3 ug/mL 03/02/18 03/02/18 03/02/18 Range/Units 06:16 04:53 04:30 WBC (4.8-10.8) K/uL RBC (3.80-5.20) Mil/uL Hgb (11.0-16.0) g/dL Hct (34.0-47.0) % MCV (81.0-99.0) fL MCH (27.0-31.0) pg MCHC (33.0-37.0) g/dL RDW (11.5-14.5) % Plt Count (130-400) K/uL MPV (7.2-11.7) fL Neut % (Auto) (50.0-75.0) % Lymph % (Auto) (20.0-40.0) % [place] % (Auto) (0.0-10.0) % Eos % (Auto) (0.0-4.0) % Baso % (Auto) (0.0-2.0) % Neut # (Auto) (1.8-7.0) K/uL Lymph # (Auto) (1.0-4.3) K/uL [place] # (Auto) (0.0-0.8) K/uL Eos # (Auto) (0.0-0.7) K/uL Baso # (Auto) (0.0-0.2) K/uL Neutrophils % (Manual) (50-75) % Band Neutrophils % (0-2) % Lymphocytes % (Manual) (20-40) % Monocytes % (Manual) (0-10) % Eosinophils % (Manual) (0-4) % Metamyelocytes % (0-0) % Myelocytes % (0-0) % Toxic Granulation Platelet Estimate (NORMAL) Polychromasia Hypochromasia (manual) Poikilocytosis (manual Anisocytosis (manual) Microcytosis (manual) Ovalocytes Puncture Site Rb pCO2 52 H (35-45) mm/Hg pO2 58 L (80-100) mm/Hg HCO3 19.2 L (21-28) mmol/L ABG pH 7.22 L (7.35-7.45) ABG Total CO2 22.9 (22-28) mmol/L ABG O2 Saturation 92.1 L (95-98) % ABG Base Excess -6.8 L (-2.0-3.0) mmol/L Chepe Test Na ABG Potassium 3.7 (3.6-5.2) mmol/L A-a O2 Difference 590.0 mm/Hg Respiratory Index 10.2 Sodium 149 H 148.0 (132-148) mmol/l Chloride 112 H 114.0 H (98-107) mmol/L Glucose 230 H (65-105) mg/dl Lactate 1.9 (0.7-2.1) mmol/L Vent Mode Prvc Mechanical Rate 15 FiO2 100.0 % Tidal Volume 400 PEEP 5 Potassium 3.9 (3.6-5.2) mmol/L Carbon Dioxide 24 (22-30) mmol/L Anion Gap 17 (10-20) BUN 66 H (7-17) mg/dL Creatinine 1.3 H (0.7-1.2) mg/dL Est GFR ( Amer) 49 Est GFR (Non-Af Amer) 40 POC Glucose (mg/dL) 285 H (65-110) mg/dL Random Glucose 243 H (65-105) mg/dL Calcium 7.1 L (8.6-10.4) mg/dl Phosphorus 4.7 H (2.5-4.5) mg/dL Magnesium 1.9 (1.6-2.3) mg/dL Total Bilirubin 1.1 (0.2-1.3) mg/dL AST 130 H D (14-36) U/L ALT 63 H (9-52) U/L Alkaline Phosphatase 221 H D (38-126) U/L Total Protein 4.6 L (6.3-8.3) g/dL Albumin 2.5 L (3.5-5.0) g/dL Globulin 2.1 L (2.2-3.9) gm/dL Albumin/Globulin Ratio 1.2 (1.0-2.1) Arterial Blood Potassium 3.7 (3.6-5.2) mmol/L Random Vancomycin ug/mL 03/01/18 03/01/18 03/01/18 Range/Units 23:39 22:11 17:44 WBC 6.6 D (4.8-10.8) K/uL RBC 3.26 L (3.80-5.20) Mil/uL Hgb 9.2 L (11.0-16.0) g/dL Hct 26.9 L (34.0-47.0) % MCV 82.7 D (81.0-99.0) fL MCH 28.4 (27.0-31.0) pg MCHC 34.3 (33.0-37.0) g/dL RDW 19.5 H (11.5-14.5) % Plt Count 48 L D (130-400) K/uL MPV 8.6 (7.2-11.7) fL Neut % (Auto) 98.3 H (50.0-75.0) % Lymph % (Auto) 0.8 L (20.0-40.0) % [place] % (Auto) 0.2 (0.0-10.0) % Eos % (Auto) 0.1 (0.0-4.0) % Baso % (Auto) 0.6 (0.0-2.0) % Neut # (Auto) 6.5 (1.8-7.0) K/uL Lymph # (Auto) 0.1 L (1.0-4.3) K/uL [place] # (Auto) 0.0 (0.0-0.8) K/uL Eos # (Auto) 0.0 (0.0-0.7) K/uL Baso # (Auto) 0.0 (0.0-0.2) K/uL Neutrophils % (Manual) 80 H (50-75) % Band Neutrophils % 17 H* (0-2) % Lymphocytes % (Manual) 1 L (20-40) % Monocytes % (Manual) 1 (0-10) % Eosinophils % (Manual) 1 (0-4) % Metamyelocytes % (0-0) % Myelocytes % (0-0) % Toxic Granulation Platelet Estimate Markedly decreased L (NORMAL) Polychromasia Hypochromasia (manual) Slight Poikilocytosis (manual Slight Anisocytosis (manual) Slight Microcytosis (manual) Slight Ovalocytes Puncture Site pCO2 (35-45) mm/Hg pO2 (80-100) mm/Hg HCO3 (21-28) mmol/L ABG pH (7.35-7.45) ABG Total CO2 (22-28) mmol/L ABG O2 Saturation (95-98) % ABG Base Excess (-2.0-3.0) mmol/L Chepe Test ABG Potassium (3.6-5.2) mmol/L A-a O2 Difference mm/Hg Respiratory Index Sodium (132-148) mmol/l Chloride (98-107) mmol/L Glucose (65-105) mg/dl Lactate (0.7-2.1) mmol/L Vent Mode Mechanical Rate FiO2 % Tidal Volume PEEP Potassium (3.6-5.2) mmol/L Carbon Dioxide (22-30) mmol/L Anion Gap (10-20) BUN (7-17) mg/dL Creatinine (0.7-1.2) mg/dL Est GFR ( Amer) Est GFR (Non-Af Amer) POC Glucose (mg/dL) 324 H 365 H (65-110) mg/dL Random Glucose (65-105) mg/dL Calcium (8.6-10.4) mg/dl Phosphorus (2.5-4.5) mg/dL Magnesium (1.6-2.3) mg/dL Total Bilirubin (0.2-1.3) mg/dL AST (14-36) U/L ALT (9-52) U/L Alkaline Phosphatase (38-126) U/L Total Protein (6.3-8.3) g/dL Albumin (3.5-5.0) g/dL Globulin (2.2-3.9) gm/dL Albumin/Globulin Ratio (1.0-2.1) Arterial Blood Potassium (3.6-5.2) mmol/L Random Vancomycin ug/mL 03/01/18 Range/Units 13:41 WBC 4.1 L D (4.8-10.8) K/uL RBC 3.08 L (3.80-5.20) Mil/uL Hgb 8.7 L D (11.0-16.0) g/dL Hct 24.8 L (34.0-47.0) % MCV 80.6 L (81.0-99.0) fL MCH 28.4 (27.0-31.0) pg MCHC 35.2 (33.0-37.0) g/dL RDW 19.3 H (11.5-14.5) % Plt Count 18 L* (130-400) K/uL MPV 6.7 L (7.2-11.7) fL Neut % (Auto) 97.8 H (50.0-75.0) % Lymph % (Auto) 0.8 L (20.0-40.0) % [place] % (Auto) 0.2 (0.0-10.0) % Eos % (Auto) 0.8 (0.0-4.0) % Baso % (Auto) 0.4 (0.0-2.0) % Neut # (Auto) 4.0 (1.8-7.0) K/uL Lymph # (Auto) 0.0 L (1.0-4.3) K/uL [place] # (Auto) 0.0 (0.0-0.8) K/uL Eos # (Auto) 0.0 (0.0-0.7) K/uL Baso # (Auto) 0.0 (0.0-0.2) K/uL Neutrophils % (Manual) 87 H (50-75) % Band Neutrophils % 11 H* (0-2) % Lymphocytes % (Manual) 1 L (20-40) % Monocytes % (Manual) 1 (0-10) % Eosinophils % (Manual) (0-4) % Metamyelocytes % (0-0) % Myelocytes % (0-0) % Toxic Granulation Present Platelet Estimate Markedly decreased L (NORMAL) Polychromasia Slight Hypochromasia (manual) Slight Poikilocytosis (manual Slight Anisocytosis (manual) Moderate Microcytosis (manual) Ovalocytes Slight Puncture Site pCO2 (35-45) mm/Hg pO2 (80-100) mm/Hg HCO3 (21-28) mmol/L ABG pH (7.35-7.45) ABG Total CO2 (22-28) mmol/L ABG O2 Saturation (95-98) % ABG Base Excess (-2.0-3.0) mmol/L Chepe Test ABG Potassium (3.6-5.2) mmol/L A-a O2 Difference mm/Hg Respiratory Index Sodium (132-148) mmol/l Chloride (98-107) mmol/L Glucose (65-105) mg/dl Lactate (0.7-2.1) mmol/L Vent Mode Mechanical Rate FiO2 % Tidal Volume PEEP Potassium (3.6-5.2) mmol/L Carbon Dioxide (22-30) mmol/L Anion Gap (10-20) BUN (7-17) mg/dL Creatinine (0.7-1.2) mg/dL Est GFR ( Amer) Est GFR (Non-Af Amer) POC Glucose (mg/dL) (65-110) mg/dL Random Glucose (65-105) mg/dL Calcium (8.6-10.4) mg/dl Phosphorus (2.5-4.5) mg/dL Magnesium (1.6-2.3) mg/dL Total Bilirubin (0.2-1.3) mg/dL AST (14-36) U/L ALT (9-52) U/L Alkaline Phosphatase (38-126) U/L Total Protein (6.3-8.3) g/dL Albumin (3.5-5.0) g/dL Globulin (2.2-3.9) gm/dL Albumin/Globulin Ratio (1.0-2.1) Arterial Blood Potassium (3.6-5.2) mmol/L Random Vancomycin ug/mL Laboratory Results - last 24 hr 03/01/18 03/01/18 03/01/18 13:41 17:44 22:11 WBC 4.1 L D 6.6 D RBC 3.08 L 3.26 L Hgb 8.7 L D 9.2 L Hct 24.8 L 26.9 L MCV 80.6 L 82.7 D MCH 28.4 28.4 MCHC 35.2 34.3 RDW 19.3 H 19.5 H Plt Count 18 L* 48 L D MPV 6.7 L 8.6 Neut % (Auto) 97.8 H 98.3 H Lymph % (Auto) 0.8 L 0.8 L [place] % (Auto) 0.2 0.2 Eos % (Auto) 0.8 0.1 Baso % (Auto) 0.4 0.6 Neut # (Auto) 4.0 6.5 Lymph # (Auto) 0.0 L 0.1 L [place] # (Auto) 0.0 0.0 Eos # (Auto) 0.0 0.0 Baso # (Auto) 0.0 0.0 Neutrophils % (Manual) 87 H 80 H Band Neutrophils % 11 H* 17 H* Lymphocytes % (Manual) 1 L 1 L Monocytes % (Manual) 1 1 Eosinophils % (Manual) 1 Metamyelocytes % Myelocytes % Toxic Granulation Present Platelet Estimate Markedly decreased L Markedly decreased L Polychromasia Slight Hypochromasia (manual) Slight Slight Poikilocytosis (manual Slight Slight Anisocytosis (manual) Moderate Slight Microcytosis (manual) Slight Ovalocytes Slight Puncture Site pCO2 pO2 HCO3 ABG pH ABG Total CO2 ABG O2 Saturation ABG Base Excess Chepe Test ABG Potassium A-a O2 Difference Respiratory Index Sodium Chloride Glucose Lactate Vent Mode Mechanical Rate FiO2 Tidal Volume PEEP Potassium Carbon Dioxide Anion Gap BUN Creatinine Est GFR ( Amer) Est GFR (Non-Af Amer) POC Glucose (mg/dL) 365 H Random Glucose Calcium Phosphorus Magnesium Total Bilirubin AST ALT Alkaline Phosphatase Total Protein Albumin Globulin Albumin/Globulin Ratio Arterial Blood Potassium Random Vancomycin 03/01/18 03/02/18 03/02/18 23:39 04:30 04:53 WBC RBC Hgb Hct MCV MCH MCHC RDW Plt Count MPV Neut % (Auto) Lymph % (Auto) [place] % (Auto) Eos % (Auto) Baso % (Auto) Neut # (Auto) Lymph # (Auto) [place] # (Auto) Eos # (Auto) Baso # (Auto) Neutrophils % (Manual) Band Neutrophils % Lymphocytes % (Manual) Monocytes % (Manual) Eosinophils % (Manual) Metamyelocytes % Myelocytes % Toxic Granulation Platelet Estimate Polychromasia Hypochromasia (manual) Poikilocytosis (manual Anisocytosis (manual) Microcytosis (manual) Ovalocytes Puncture Site Rb pCO2 52 H pO2 58 L HCO3 19.2 L ABG pH 7.22 L ABG Total CO2 22.9 ABG O2 Saturation 92.1 L ABG Base Excess -6.8 L Chepe Test Na ABG Potassium 3.7 A-a O2 Difference 590.0 Respiratory Index 10.2 Sodium 148.0 Chloride 114.0 H Glucose 230 H Lactate 1.9 Vent Mode Prvc Mechanical Rate 15 FiO2 100.0 Tidal Volume 400 PEEP 5 Potassium Carbon Dioxide Anion Gap BUN Creatinine Est GFR ( Amer) Est GFR (Non-Af Amer) POC Glucose (mg/dL) 324 H 285 H Random Glucose Calcium Phosphorus Magnesium Total Bilirubin AST ALT Alkaline Phosphatase Total Protein Albumin Globulin Albumin/Globulin Ratio Arterial Blood Potassium 3.7 Random Vancomycin 03/02/18 03/02/18 03/02/18 06:16 06:16 06:19 WBC 6.3 RBC 3.20 L Hgb 9.0 L Hct 25.9 L MCV 81.0 MCH 28.0 MCHC 34.6 RDW 19.8 H Plt Count 40 L MPV 9.8 Neut % (Auto) 98.0 H Lymph % (Auto) 1.0 L [place] % (Auto) 1.0 Eos % (Auto) 0.0 Baso % (Auto) 0.0 Neut # (Auto) 6.1 Lymph # (Auto) 0.1 L [place] # (Auto) 0.1 Eos # (Auto) 0.0 Baso # (Auto) 0.0 Neutrophils % (Manual) 78 H Band Neutrophils % 16 H* Lymphocytes % (Manual) 1 L Monocytes % (Manual) 1 Eosinophils % (Manual) Metamyelocytes % 3 H Myelocytes % 1 H Toxic Granulation Present Platelet Estimate Decreased L Polychromasia Slight Hypochromasia (manual) Slight Poikilocytosis (manual Slight Anisocytosis (manual) Moderate Microcytosis (manual) Ovalocytes Slight Puncture Site pCO2 pO2 HCO3 ABG pH ABG Total CO2 ABG O2 Saturation ABG Base Excess Chepe Test ABG Potassium A-a O2 Difference Respiratory Index Sodium 149 H Chloride 112 H Glucose Lactate Vent Mode Mechanical Rate FiO2 Tidal Volume PEEP Potassium 3.9 Carbon Dioxide 24 Anion Gap 17 BUN 66 H Creatinine 1.3 H Est GFR ( Amer) 49 Est GFR (Non-Af Amer) 40 POC Glucose (mg/dL) Random Glucose 243 H Calcium 7.1 L Phosphorus 4.7 H Magnesium 1.9 Total Bilirubin 1.1 AST 130 H D ALT 63 H Alkaline Phosphatase 221 H D Total Protein 4.6 L Albumin 2.5 L Globulin 2.1 L Albumin/Globulin Ratio 1.2 Arterial Blood Potassium Random Vancomycin 29.3 03/02/18 11:21 WBC RBC Hgb Hct MCV MCH MCHC RDW Plt Count MPV Neut % (Auto) Lymph % (Auto) [place] % (Auto) Eos % (Auto) Baso % (Auto) Neut # (Auto) Lymph # (Auto) [place] # (Auto) Eos # (Auto) Baso # (Auto) Neutrophils % (Manual) Band Neutrophils % Lymphocytes % (Manual) Monocytes % (Manual) Eosinophils % (Manual) Metamyelocytes % Myelocytes % Toxic Granulation Platelet Estimate Polychromasia Hypochromasia (manual) Poikilocytosis (manual Anisocytosis (manual) Microcytosis (manual) Ovalocytes Puncture Site pCO2 pO2 HCO3 ABG pH ABG Total CO2 ABG O2 Saturation ABG Base Excess Chepe Test ABG Potassium A-a O2 Difference Respiratory Index Sodium Chloride Glucose Lactate Vent Mode Mechanical Rate FiO2 Tidal Volume PEEP Potassium Carbon Dioxide Anion Gap BUN Creatinine Est GFR ( Amer) Est GFR (Non-Af Amer) POC Glucose (mg/dL) 285 H Random Glucose Calcium Phosphorus Magnesium Total Bilirubin AST ALT Alkaline Phosphatase Total Protein Albumin Globulin Albumin/Globulin Ratio Arterial Blood Potassium Random Vancomycin Fingerstick Blood Sugar Results: 285 Review of Systems - Review of Systems Systems not reviewed;Unavailable: Intubated Assessment/Plan - Assessment and Plan (Free Text) Assessment: 72 year old female with history of left breast cancer s/p mastectomy, cervical cancer s/p hysterectomy, newly diagnosed lymphoma, COPD, HTN, DM, anemia sp transfusion. ICU consulted for neutropenic fevers after chemo. Currently intubated. Plan: Neuro: Patient intubated, sedated on Propofol Cardiovascular: No longer on pressors. BP 129/65 Pulmonary Worsening infiltrates vs. pulmonary edema CXR findings compatible with worsening pulmonary edema CT chest Interval worsening bilateral pneumonia affecting primarily the bilateral lower lobes greater than the bilateral upper lobes and minimally involving the middle lobe. Prior right pleural effusion diminished in the interval. Cholelithiasis. Bilateral adrenal hypertrophy without gross mass evident. Mild splenomegaly to 13.6 cm. Small hiatal hernia identified Patient intubated on 02/25/18. Sedated on Propofol Legionella negative mycoplasma negative Upper and lower extremity Dopplers negative Duonebs Q6 Solumedrol 40mg IV Q8 On PRVC, sedated with Propofol GI Protonix 40mg Q12 Stool occult positive Carafate 1g QID Renal BUN 55 Cr 1.0 I & Os +3817 Sodium bicarb drip Continue to monitor electrolytes Heme/Onc Hx of left breast cancer s/p mastectomy Hx of cervical cancer s/p hysterectomy Newly diagnosed lymphoma Anemic H/H 8.8/26.6, improved Platelets 31 Dr. Krueger consulted, help appreciated Surgery Dr. Garcia on board ([facility] ) Patient received 2 units of platelets and 2 units PRBCs ID white count 6.3 today Platelets 40 today 9 Blood cultures prelim positive for GP cocci 02/25 prelim blood cx no growth, 02/25 sputum MRSA 02/27 Urine positive for yeast On Zyvox, Meropenem and Micafungin Dr. Mccollum consulted, help appreciated Endo Hx of DM ISS PPX: SCDs, Protonix Case discussed with Dr. Lainez.
--- NOTE | 2018-03-02 18:08 | CP.PCM.PN ---
Subjective - Date & Time of Evaluation Date of Evaluation: 03/02/18 Time of Evaluation: 10:55 - Subjective Subjective: Patient seen and examined Remains intubated on ventilatory support, 100% FiO2 with PEEP of 8 and saturation in the mid 80s Worsening bilateral infiltrate Sedated Objective - Vital Signs/Intake and Output Vital Signs (last 24 hours): Temp Pulse Resp BP Pulse Ox 97.5 F L 94 H 31 H 124/61 87 L 03/02/18 16:00 03/02/18 17:32 03/02/18 17:32 03/02/18 17:33 03/02/18 17:32 Intake and Output: 03/02/18 03/02/18 06:59 18:59 Intake Total 907.6 1300.6 Output Total 890 550 Balance 17.6 750.6 - Medications Medications: Current Medications Albuterol/Ipratropium (Duoneb 3 Mg/0.5 Mg (3 Ml) Ud) 3 ml INH RQ6 MILLIE Last Admin: 03/02/18 13:20 Dose: 3 ml Artificial Tears (Lacri-Lube) 1 gm OU Q4 PRN PRN Reason: Dry eyes Last Admin: 03/01/18 21:53 Dose: 1 gm Micafungin Sodium 100 mg/ (Dextrose) 100 mls @ 100 mls/hr IV Q24H MILLIE PRN Reason: Protocol Last Admin: 03/02/18 12:46 Dose: 100 mls/hr Propofol (Diprivan) 1,000 mg in 100 mls @ 1.772 mls/hr IV .Q24H PRN; Protocol; 5 MCG/KG/MIN PRN Reason: TITRATE PER MD ORDER Last Admin: 03/02/18 16:33 Dose: 50 mcg/kg/min, 17.717 mls/hr Sodium Bicarbonate 150 meq/ (Dextrose) 1,150 mls @ 42 mls/hr IV .Q24H MILLIE Last Admin: 03/01/18 19:33 Dose: 42 mls/hr Linezolid (Zyvox 600mg/300ml D5w) 600 mg in 300 mls @ 200 mls/hr IVPB Q12H M[facility] PRN Reason: Protocol Last Admin: 03/02/18 16:30 Dose: 200 mls/hr Meropenem 1 gm/ Sodium (Chloride) 50 mls @ 100 mls/hr IVPB Q12H [facility] PRN Reason: Protocol Last Admin: 03/02/18 10:22 Dose: 100 mls/hr Insulin Aspart (Novolog) 0 unit SC Q6H [facility] PRN Reason: Protocol Last Admin: 03/02/18 17:36 Dose: 4 units Lorazepam (Ativan) 1 mg IVP Q4H PRN PRN Reason: Agitation Last Admin: 03/01/18 09:32 Dose: 1 mg Methylprednisolone (Solu-Medrol) 40 mg IVP Q8H [facility] Last Admin: 03/02/18 12:45 Dose: 40 mg Multivitamins/Vitamin C (Multi-Delyn Liquid) 5 ml PO DAILY [facility] Last Admin: 03/02/18 10:10 Dose: 5 ml Pantoprazole Sodium (Protonix Inj) 40 mg IVP Q12H [facility] Last Admin: 03/02/18 10:10 Dose: 40 mg Sucralfate (Carafate Oral Susp) 1 gm PO QID [facility] Last Admin: 03/02/18 17:37 Dose: 1 gm - Labs Labs: 03/02/18 06:19 03/02/18 06:16 PT 15.6 SECONDS (9.7-12.2) H 02/25/18 23:48 INR 1.4 02/25/18 23:48 APTT 29 SECONDS (21-34) 02/25/18 23:48 - Head Exam Head Exam: ATRAUMATIC, NORMOCEPHALIC - Eye Exam Eye Exam: Normal appearance - ENT Exam ENT Exam: Mucous Membranes Moist - Respiratory Exam Respiratory Exam: Rales Assessment and Plan (1) Acute respiratory failure with hypoxia Assessment & Plan: Bilateral pneumonia Condition worsen continue antibiotics Continue ventilatory support IV sedation Prognosis poor Status: Acute
--- NOTE | 2018-03-02 19:07 | CP.PCM.PN ---
Subjective - Date & Time of Evaluation Date of Evaluation: 03/02/18 Time of Evaluation: 12:00 - Subjective Subjective: clinically same Objective - Vital Signs/Intake and Output Vital Signs (last 24 hours): Temp Pulse Resp BP Pulse Ox 97.5 F L 96 H 34 H 122/56 L 88 L 03/02/18 16:00 03/02/18 18:03 03/02/18 18:03 03/02/18 18:33 03/02/18 18:03 Intake and Output: 03/02/18 03/03/18 18:59 06:59 Intake Total 1440.0 Output Total 625 Balance 815.0 - Medications Medications: Current Medications Albuterol/Ipratropium (Duoneb 3 Mg/0.5 Mg (3 Ml) Ud) 3 ml INH RQ6 MILLIE Last Admin: 03/02/18 13:20 Dose: 3 ml Artificial Tears (Lacri-Lube) 1 gm OU Q4 PRN PRN Reason: Dry eyes Last Admin: 03/01/18 21:53 Dose: 1 gm Micafungin Sodium 100 mg/ (Dextrose) 100 mls @ 100 mls/hr IV Q24H MILLIE PRN Reason: Protocol Last Admin: 03/02/18 12:46 Dose: 100 mls/hr Propofol (Diprivan) 1,000 mg in 100 mls @ 1.772 mls/hr IV .Q24H PRN; Protocol; 5 MCG/KG/MIN PRN Reason: TITRATE PER MD ORDER Last Admin: 03/02/18 16:33 Dose: 50 mcg/kg/min, 17.717 mls/hr Sodium Bicarbonate 150 meq/ (Dextrose) 1,150 mls @ 42 mls/hr IV .Q24H MILLIE Last Admin: 03/01/18 19:33 Dose: 42 mls/hr Linezolid (Zyvox 600mg/300ml D5w) 600 mg in 300 mls @ 200 mls/hr IVPB Q12H MILLIE PRN Reason: Protocol Last Admin: 03/02/18 16:30 Dose: 200 mls/hr Meropenem 1 gm/ Sodium (Chloride) 50 mls @ 100 mls/hr IVPB Q12H MILLIE PRN Reason: Protocol Last Admin: 03/02/18 10:22 Dose: 100 mls/hr Insulin Aspart (Novolog) 0 unit SC Q6H MILLIE PRN Reason: Protocol Last Admin: 03/02/18 17:36 Dose: 4 units Lorazepam (Ativan) 1 mg IVP Q4H PRN PRN Reason: Agitation Last Admin: 03/01/18 09:32 Dose: 1 mg Methylprednisolone (Solu-Medrol) 40 mg IVP Q8H [facility] Last Admin: 03/02/18 12:45 Dose: 40 mg Multivitamins/Vitamin C (Multi-Delyn Liquid) 5 ml PO DAILY [facility] Last Admin: 03/02/18 10:10 Dose: 5 ml Pantoprazole Sodium (Protonix Inj) 40 mg IVP Q12H [facility] Last Admin: 03/02/18 10:10 Dose: 40 mg Sucralfate (Carafate Oral Susp) 1 gm PO QID [facility] Last Admin: 03/02/18 17:37 Dose: 1 gm - Labs Labs: 03/02/18 06:19 03/02/18 06:16 PT 15.6 SECONDS (9.7-12.2) H 02/25/18 23:48 INR 1.4 02/25/18 23:48 APTT 29 SECONDS (21-34) 02/25/18 23:48 - Constitutional Appears: Well - Head Exam Head Exam: ATRAUMATIC, NORMAL INSPECTION, NORMOCEPHALIC - Eye Exam Eye Exam: EOMI, Normal appearance, PERRL Pupil Exam: NORMAL ACCOMODATION, PERRL - ENT Exam ENT Exam: Mucous Membranes Moist, Normal Exam - Neck Exam Neck Exam: Full ROM, Normal Inspection. 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
[2018-03-02] MEDS: Sodium Bicarbonate 8.4% 150 MEQ in Dextrose 5% In Water 1,000 ML IV SCH ×2 (19:19→22:23)
[2018-03-03] MEDS: (Novolog) Insulin Aspart, Recombinant 100 u/ml 10 ml vial SC SCH ×5 (00:07→17:59)
[2018-03-03] MEDS: Albuterol-Ipratrop 3 mg / 0.5 (3 ml) UD INH SCH ×4 (01:09→19:44)
[2018-03-03] MEDS: Linezolid 600 mg in D5W 300 ml 600 MG/300 ML BAG IVPB SCH ×2 (04:04→15:01)
[2018-03-03] MEDS: MethylPREDNISolone 40 mg Vial IVP SCH ×3 (04:05→20:09)
[2018-03-03 05:40] LABS: ABG ALLEN TEST POS; ARTERIAL BLOOD GAS HCO3 20.3 mmol/L (21-28); ARTERIAL BLOOD GAS HEMOGLOBIN 9.3 g/dL (11.7-17.4); ARTERIAL BLOOD GAS PCO2 62 mm/Hg (35-45); ARTERIAL BLOOD GAS PH 7.18 (7.35-7.45); ARTERIAL BLOOD GAS PO2 42 mm/Hg (80-100)
[2018-03-03] MEDS: Propofol 10 mg/ml 1,000 MG/100 ML VIAL IV PRN ×2 (05:55→20:06)
[2018-03-03 06:28] LABS: BASO % 0.3 % (0.0-2.0); HEMOGLOBIN 9.6 g/dL (11.0-16.0); LYMPH # 0.1 K/uL (1.0-4.3); LYMPH % 0.8 % (20.0-40.0); MEAN CORPUSCULAR HEMOGLOBIN 28.1 pg (27.0-31.0); MEAN CORPUSCULAR HGB CONC 34.3 g/dL (33.0-37.0); MEAN PLATELET VOLUME 9.3 fL (7.2-11.7); MONO # 0.1 K/uL (0.0-0.8); MONO % 0.8 % (0.0-10.0); NEUT # 13.4 K/uL (1.8-7.0); NEUT % 98.1 % (50.0-75.0); NRBC % 0.8 % (0.0-2.0); PLATELET COUNT 55 K/uL (130-400); RED CELL DISTRIBUTION WIDTH 19.9 % (11.5-14.5); WHITE BLOOD COUNT 13.7 K/uL (4.8-10.8)
[2018-03-03 06:50] LABS: ALB/GLOB RATIO 1.1 (1.0-2.1); ALBUMIN 2.3 g/dL (3.5-5.0); CALCIUM 6.7 mg/dl (8.6-10.4)
[2018-03-03 08:41] LABS: ANISOCYTOSIS MODERATE; BANDS 28 % (0-2); LYMPHOCYTE 1 % (20-40); METAMYELOCYTE 2 % (0-0); MONOCYTE 1 % (0-10); MYELOCYTE 1 % (0-0); NEUTROPHIL 67 % (50-75); NUCLEATED RED BLOOD CELL 1 % (0-0); PLATELET ESTIMATE DECREASED (NORMAL); TOTAL CELLS COUNTED 100
[2018-03-03 08:42] LABS: HYPOCHROMIC SLIGHT
[2018-03-03] MEDS ORDERED: Albumin Human 25% (12.5 gm/50 ml) IV ONE (09:30)
[2018-03-03] MEDS: Sucralfate 1 gm/10 ml Oral Susp UD PO SCH ×4 (09:42→22:03)
[2018-03-03] MEDS: Multiple Vitamins Oral Solution PO SCH (09:43)
--- NOTE | 2018-03-03 09:59 | RAD ---
Date of service: 03/03/2018 HISTORY: intubated COMPARISON: No prior. FINDINGS: In situ ETT, the tip of which lies approximately 5.5 cm above meagan. Situ NGT, the tip of which has not been included on this film though distal aspect does lie below EG junction. No change right IJ MediPort LUNGS: Diffuse bilateral infiltrates again noted. PLEURA: No significant pleural effusion identified, no pneumothorax apparent. CARDIOVASCULAR: Normal. OSSEOUS STRUCTURES: No significant abnormalities. VISUALIZED UPPER ABDOMEN: Normal. OTHER FINDINGS: None. IMPRESSION: Support lines and tubes as above. Diffuse bilateral infiltrates.
--- NOTE | 2018-03-03 10:37 | CP.CCUPN ---
<Nickolas Tyler - Last Filed: 03/03/18 15:31> CCU Subjective - Physician Review Subjective (Free Text): ICU Progress note Patient seen and examined at bedside. Patient is intubated and unable to provide history. Daughter present at bedside. CCU Objective - Vital Signs / Intake & Output Vital Signs (Last 4 hours): Vital Signs Temp Pulse Resp BP Pulse Ox 03/03/18 09:42 93/50 L 03/03/18 08:21 97 H 24 92/49 L 83 L 03/03/18 08:02 102/53 L 03/03/18 08:01 93 H 34 H 80 L 03/03/18 08:00 97.6 F 94 H 34 H 79 L 03/03/18 07:32 95 H 34 H 78 L 03/03/18 07:03 92 H 32 H 95/52 L 78 L Intake and Output (Last 8hrs): Intake & Output 03/02/18 03/03/18 03/03/18 22:59 06:59 14:59 Intake Total 977.6 963.1 122.3 Output Total 265 80 Balance 712.6 883.1 122.3 Intake: IV 200 100 17 Intake, IV Amount 677.6 703.1 105.3 Right Distal Port Port-A- 141.6 117.1 21.3 Cath Right Port-A-Cath 200 250 Right Portocath Y port 336 336 84 Tube Feeding 100 160 Output: Urine 265 80 Urethral (Soto) 265 80 - Physical Exam Head: Positive for: Atraumatic, Normocephalic Mouth: Positive for: Dry, Other (Intubated, ETT in place) Respiratory/Chest: Positive for: Decreased Breath Sounds Cardiovascular: Positive for: Normal S1, S2, Other (portacath R chest) Abdomen: Positive for: Normal Bowel Sounds. Negative for: Tenderness, Distention, Peritoneal Signs Upper Extremity: Positive for: Edema (Bilateral upper extremity edema), NORMAL PULSES (radial pulses ) Lower Extremity: Positive for: NORMAL PULSES, Other (scds in place). Negative for: Edema Skin: Positive for: Warm, Dry Psychiatric: Positive for: Alert - Medications Active Medications: Active Medications Generic Name Dose Route Start Last Admin Trade Name Freq PRN Reason Stop Dose Admin Albuterol/Ipratropium 3 ml 03/01/18 14:00 03/03/18 08:15 Duoneb 3 Mg/0.5 Mg (3 Ml) Ud INH 3 ml RQ6 MILLIE Administration Artificial Tears 1 gm 02/27/18 20:36 03/01/18 21:53 Lacri-Lube OU 1 gm Q4 PRN Administration Dry eyes Micafungin Sodium 100 mg/ 100 mls @ 100 mls/hr 02/24/18 13:00 03/02/18 12:46 Dextrose IV 100 mls/hr Q24H MILLIE Administration Protocol Propofol 1,000 mg in 100 mls @ 1.772 mls/hr 02/25/18 15:35 03/03/18 08:15 Diprivan IV 20 mcg/kg/min .Q24H PRN 7.087 mls/hr TITRATE PER MD ORDER Titration Protocol 5 MCG/KG/MIN Sodium Bicarbonate 150 meq/ 1,150 mls @ 42 mls/hr 02/28/18 11:00 03/02/18 22: 23 Dextrose IV 42 mls/hr .Q24H MILLIE Administration Linezolid 600 mg in 300 mls @ 200 mls/hr 03/01/18 16:00 03/03/18 04:04 Zyvox 600mg/300ml D5w IVPB 200 mls/hr Q12H MILLIE Administration Protocol Meropenem 1 gm/ Sodium 50 mls @ 100 mls/hr 03/01/18 23:00 03/02/18 22:05 Chloride IVPB 100 mls/hr Q12H MILLIE Administration Protocol Insulin Aspart 0 unit 03/01/18 06:00 03/03/18 06:01 Novolog SC 3 units Q6H MILLIE Administration Protocol Insulin Human Regular 0 unit 03/03/18 11:30 Novolin R SC ACHS MILLIE Protocol Lorazepam 1 mg 02/26/18 11:01 03/01/18 09:32 Ativan IVP 1 mg Q4H PRN Administration Agitation Methylprednisolone 40 mg 03/02/18 04:15 03/03/18 04:05 Solu-Medrol IVP 40 mg Q8H MILLIE Administration Multivitamins/Vitamin C 5 ml 02/24/18 10:15 03/03/18 09:43 Multi-Delyn Liquid PO 5 ml DAILY MILLIE Administration Pantoprazole Sodium 40 mg 03/01/18 09:30 03/03/18 09:42 Protonix Inj IVP 40 mg Q12H MILLIE Administration Sucralfate 1 gm 03/01/18 10:00 03/03/18 09:42 Carafate Oral Susp PO 1 gm QID MILLIE Administration - Patient Studies Lab Studies: Lab Studies 03/03/18 03/03/18 03/03/18 Range/Units 06:19 06:17 05:30 WBC 13.7 H D (4.8-10.8) K/uL RBC 3.40 L (3.80-5.20) Mil/uL Hgb 9.6 L (11.0-16.0) g/dL Hct 27.9 L (34.0-47.0) % MCV 82.0 (81.0-99.0) fL MCH 28.1 (27.0-31.0) pg MCHC 34.3 (33.0-37.0) g/dL RDW 19.9 H (11.5-14.5) % Plt Count 55 L (130-400) K/uL MPV 9.3 (7.2-11.7) fL Neut % (Auto) 98.1 H (50.0-75.0) % Lymph % (Auto) 0.8 L (20.0-40.0) % Lea % (Auto) 0.8 (0.0-10.0) % Eos % (Auto) 0.0 (0.0-4.0) % Baso % (Auto) 0.3 (0.0-2.0) % Neut # (Auto) 13.4 H (1.8-7.0) K/uL Lymph # (Auto) 0.1 L (1.0-4.3) K/uL Lea # (Auto) 0.1 (0.0-0.8) K/uL Eos # (Auto) 0.0 (0.0-0.7) K/uL Baso # (Auto) 0.0 (0.0-0.2) K/uL Neutrophils % (Manual) 67 (50-75) % Band Neutrophils % 28 H* (0-2) % Lymphocytes % (Manual) 1 L (20-40) % Monocytes % (Manual) 1 (0-10) % Metamyelocytes % 2 H (0-0) % Myelocytes % 1 H (0-0) % Nucleated RBC % 1 H (0-0) % Platelet Estimate Decreased L (NORMAL) Hypochromasia (manual) Slight Anisocytosis (manual) Moderate Puncture Site Rr pCO2 62 H (35-45) mm/Hg pO2 42 L* (80-100) mm/Hg HCO3 20.3 L (21-28) mmol/L ABG pH 7.18 L* (7.35-7.45) ABG Total CO2 25.0 (22-28) mmol/L ABG O2 Saturation 81.0 L (95-98) % ABG Base Excess -5.5 L (-2.0-3.0) mmol/L ABG Hemoglobin 9.3 L (11.7-17.4) g/dL ABG Carboxyhemoglobin 2.0 H (0.5-1.5) % POC ABG HHb (Measured) 18.5 H (0.0-5.0) % ABG Methemoglobin 0.8 (0.0-3.0) % Chepe Test Pos A-a O2 Difference 594.0 mm/Hg Respiratory Index 14.1 Hgb O2 Saturation 78.8 L (95.0-98.0) % Vent Mode Prvc Mechanical Rate 15 FiO2 100.0 % Tidal Volume 400 PEEP 12 Crit Value Called To Lalo rn Crit Value Called By Chad lawn service supervisor Crit Value Read Back Y Blood Gas Notified Time 540 Sodium 143 (132-148) mmol/L Potassium 4.6 (3.6-5.2) mmol/L Chloride 107 (98-107) mmol/L Carbon Dioxide 23 (22-30) mmol/L Anion Gap 19 (10-20) BUN 78 H (7-17) mg/dL Creatinine 1.7 H (0.7-1.2) mg/dL Est GFR ( Amer) 36 Est GFR (Non-Af Amer) 30 POC Glucose (mg/dL) (65-110) mg/dL Random Glucose 265 H (65-105) mg/dL Calcium 6.7 L (8.6-10.4) mg/dl Phosphorus 6.0 H (2.5-4.5) mg/dL Magnesium 1.9 (1.6-2.3) mg/dL Total Bilirubin 1.6 H (0.2-1.3) mg/dL AST 256 H D (14-36) U/L ALT 80 H D (9-52) U/L Alkaline Phosphatase 336 H D (38-126) U/L Total Protein 4.3 L (6.3-8.3) g/dL Albumin 2.3 L (3.5-5.0) g/dL Globulin 2.0 L (2.2-3.9) gm/dL Albumin/Globulin Ratio 1.1 (1.0-2.1) 03/02/18 03/02/18 03/02/18 Range/Units 23:37 17:31 11:21 WBC (4.8-10.8) K/uL RBC (3.80-5.20) Mil/uL Hgb (11.0-16.0) g/dL Hct (34.0-47.0) % MCV (81.0-99.0) fL MCH (27.0-31.0) pg MCHC (33.0-37.0) g/dL RDW (11.5-14.5) % Plt Count (130-400) K/uL MPV (7.2-11.7) fL Neut % (Auto) (50.0-75.0) % Lymph % (Auto) (20.0-40.0) % Lea % (Auto) (0.0-10.0) % Eos % (Auto) (0.0-4.0) % Baso % (Auto) (0.0-2.0) % Neut # (Auto) (1.8-7.0) K/uL Lymph # (Auto) (1.0-4.3) K/uL Lea # (Auto) (0.0-0.8) K/uL Eos # (Auto) (0.0-0.7) K/uL Baso # (Auto) (0.0-0.2) K/uL Neutrophils % (Manual) (50-75) % Band Neutrophils % (0-2) % Lymphocytes % (Manual) (20-40) % Monocytes % (Manual) (0-10) % Metamyelocytes % (0-0) % Myelocytes % (0-0) % Nucleated RBC % (0-0) % Platelet Estimate (NORMAL) Hypochromasia (manual) Anisocytosis (manual) Puncture Site pCO2 (35-45) mm/Hg pO2 (80-100) mm/Hg HCO3 (21-28) mmol/L ABG pH (7.35-7.45) ABG Total CO2 (22-28) mmol/L ABG O2 Saturation (95-98) % ABG Base Excess (-2.0-3.0) mmol/L ABG Hemoglobin (11.7-17.4) g/dL ABG Carboxyhemoglobin (0.5-1.5) % POC ABG HHb (Measured) (0.0-5.0) % ABG Methemoglobin (0.0-3.0) % Chepe Test A-a O2 Difference mm/Hg Respiratory Index Hgb O2 Saturation (95.0-98.0) % Vent Mode Mechanical Rate FiO2 % Tidal Volume PEEP Crit Value Called To Crit Value Called By Crit Value Read Back Blood Gas Notified Time Sodium (132-148) mmol/L Potassium (3.6-5.2) mmol/L Chloride (98-107) mmol/L Carbon Dioxide (22-30) mmol/L Anion Gap (10-20) BUN (7-17) mg/dL Creatinine (0.7-1.2) mg/dL Est GFR ( Amer) Est GFR (Non-Af Amer) POC Glucose (mg/dL) 266 H 314 H 285 H (65-110) mg/dL Random Glucose (65-105) mg/dL Calcium (8.6-10.4) mg/dl Phosphorus (2.5-4.5) mg/dL Magnesium (1.6-2.3) mg/dL Total Bilirubin (0.2-1.3) mg/dL AST (14-36) U/L ALT (9-52) U/L Alkaline Phosphatase (38-126) U/L Total Protein (6.3-8.3) g/dL Albumin (3.5-5.0) g/dL Globulin (2.2-3.9) gm/dL Albumin/Globulin Ratio (1.0-2.1) Laboratory Results - last 24 hr 03/02/18 03/02/18 03/02/18 11:21 17:31 23:37 WBC RBC Hgb Hct MCV MCH MCHC RDW Plt Count MPV Neut % (Auto) Lymph % (Auto) Lea % (Auto) Eos % (Auto) Baso % (Auto) Neut # (Auto) Lymph # (Auto) Lea # (Auto) Eos # (Auto) Baso # (Auto) Neutrophils % (Manual) Band Neutrophils % Lymphocytes % (Manual) Monocytes % (Manual) Metamyelocytes % Myelocytes % Nucleated RBC % Platelet Estimate Hypochromasia (manual) Anisocytosis (manual) Puncture Site pCO2 pO2 HCO3 ABG pH ABG Total CO2 ABG O2 Saturation ABG Base Excess ABG Hemoglobin ABG Carboxyhemoglobin POC ABG HHb (Measured) ABG Methemoglobin Chepe Test A-a O2 Difference Respiratory Index Hgb O2 Saturation Vent Mode Mechanical Rate FiO2 Tidal Volume PEEP Crit Value Called To Crit Value Called By Crit Value Read Back Blood Gas Notified Time Sodium Potassium Chloride Carbon Dioxide Anion Gap BUN Creatinine Est GFR ( Amer) Est GFR (Non-Af Amer) POC Glucose (mg/dL) 285 H 314 H 266 H Random Glucose Calcium Phosphorus Magnesium Total Bilirubin AST ALT Alkaline Phosphatase Total Protein Albumin Globulin Albumin/Globulin Ratio 03/03/18 03/03/18 03/03/18 05:30 06:17 06:19 WBC 13.7 H D RBC 3.40 L Hgb 9.6 L Hct 27.9 L MCV 82.0 MCH 28.1 MCHC 34.3 RDW 19.9 H Plt Count 55 L MPV 9.3 Neut % (Auto) 98.1 H Lymph % (Auto) 0.8 L Lea % (Auto) 0.8 Eos % (Auto) 0.0 Baso % (Auto) 0.3 Neut # (Auto) 13.4 H Lymph # (Auto) 0.1 L Lea # (Auto) 0.1 Eos # (Auto) 0.0 Baso # (Auto) 0.0 Neutrophils % (Manual) 67 Band Neutrophils % 28 H* Lymphocytes % (Manual) 1 L Monocytes % (Manual) 1 Metamyelocytes % 2 H Myelocytes % 1 H Nucleated RBC % 1 H Platelet Estimate Decreased L Hypochromasia (manual) Slight Anisocytosis (manual) Moderate Puncture Site Rr pCO2 62 H pO2 42 L* HCO3 20.3 L ABG pH 7.18 L* ABG Total CO2 25.0 ABG O2 Saturation 81.0 L ABG Base Excess -5.5 L ABG Hemoglobin 9.3 L ABG Carboxyhemoglobin 2.0 H POC ABG HHb (Measured) 18.5 H ABG Methemoglobin 0.8 Chepe Test Pos A-a O2 Difference 594.0 Respiratory Index 14.1 Hgb O2 Saturation 78.8 L Vent Mode Prvc Mechanical Rate 15 FiO2 100.0 Tidal Volume 400 PEEP 12 Crit Value Called To Lalo rn Crit Value Called By Chad lawn service supervisor Crit Value Read Back Y Blood Gas Notified Time 540 Sodium 143 Potassium 4.6 Chloride 107 Carbon Dioxide 23 Anion Gap 19 BUN 78 H Creatinine 1.7 H Est GFR ( Amer) 36 Est GFR (Non-Af Amer) 30 POC Glucose (mg/dL) Random Glucose 265 H Calcium 6.7 L Phosphorus 6.0 H Magnesium 1.9 Total Bilirubin 1.6 H AST 256 H D ALT 80 H D Alkaline Phosphatase 336 H D Total Protein 4.3 L Albumin 2.3 L Globulin 2.0 L Albumin/Globulin Ratio 1.1 Fingerstick Blood Sugar Results: 278 Review of Systems - Review of Systems Systems not reviewed;Unavailable: Intubated Assessment/Plan - Assessment and Plan (Free Text) Assessment: 72 year old female with history of left breast cancer s/p mastectomy, cervical cancer s/p hysterectomy, newly diagnosed lymphoma, COPD, HTN, DM, anemia sp transfusion. ICU consulted for neutropenic fevers after chemo. Currently intubated. Plan: Neuro: Patient intubated, sedated on Propofol Cardiovascular: On pressors, Levophed Albumin 12.5g IVx1 given Pulmonary On PRVC, sedated with Propofol O2 saturation remains in high 80s despite being on 100% FiO2 Worsening infiltrates vs. pulmonary edema CXR diffuse bilateral infiltrates CT chest Interval worsening bilateral pneumonia affecting primarily the bilateral lower lobes greater than the bilateral upper lobes and minimally involving the middle lobe. Prior right pleural effusion diminished in the interval. Cholelithiasis. Bilateral adrenal hypertrophy without gross mass evident. Mild splenomegaly to 13.6 cm. Small hiatal hernia identified Legionella negative mycoplasma negative Upper and lower extremity Dopplers negative Duonebs Q6 Solumedrol 40mg IV Q8 On IV abx - Zyvox, Micafungin and Meropenem Lasix 60mg total received GI Protonix 40mg Q12 Stool occult positive Carafate 1g QID Renal BUN 78 Cr 1.7 I & Os +2055 1Amp Na bicarb given Continue to monitor electrolytes, replete as needed Heme/Onc Hx of left breast cancer s/p mastectomy Hx of cervical cancer s/p hysterectomy Newly diagnosed lymphoma Anemic H/H 9.6/27.9, improved Platelets 55 Dr. Krueger consulted, help appreciated Surgery Dr. Garcia on board ([facility] ) ID white count 13.7 today Platelets 55 today 9/3 Blood cultures prelim positive for GP cocci 02/25 prelim blood cx no growth, 02/25 sputum MRSA 02/27 Urine positive for yeast On Zyvox, Meropenem and Micafungin Dr. Mccollum consulted, help appreciated Endo Hx of DM ISS PPX: SCDs, Protonix Case discussed with Dr. Bronson <Rosendo Bronson S - Last Filed: 03/03/18 18:37> CCU Subjective - Physician Review Critical Care Time Spent (in minutes): 40 CCU Objective - Vital Signs / Intake & Output Vital Signs (Last 4 hours): Vital Signs Temp Pulse Resp BP Pulse Ox 03/03/18 18:20 92 H 30 H 100/51 L 87 L 03/03/18 18:00 91 H 30 H 87 L 03/03/18 17:50 92 H 28 H 102/56 L 88 L 03/03/18 17:20 92 H 30 H 109/58 L 88 L 03/03/18 17:00 92 H 29 H 88 L 03/03/18 16:50 89 30 H 108/53 L 89 L 03/03/18 16:20 92 H 30 H 98/51 L 88 L 03/03/18 16:00 97.7 F 03/03/18 15:50 91 H 29 H 102/44 L 89 L 03/03/18 15:16 92 H 32 H 105/52 L 84 L 03/03/18 15:01 95 H 30 H 109/54 L 89 L 03/03/18 15:00 91 H 30 H 89 L 03/03/18 14:46 91 H 30 H 106/48 L 89 L Intake and Output (Last 8hrs): Intake & Output 03/03/18 03/03/18 03/03/18 06:59 14:59 22:59 Intake Total 963.1 646.9 492.3 Output Total 80 200 700 Balance 883.1 446.9 -207.7 Intake: IV 100 17 Intake, IV Amount 703.1 609.9 492.3 Right Distal Port Port-A- 117.1 63.9 21.3 Cath Right Port-A-Cath 250 210 345 Right Portocath Y port 336 336 126 Tube Feeding 160 20 Output: Urine 80 Urethral (Soto) 80 Stool 200 700 - Medications Active Medications: Active Medications Generic Name Dose Route Start Last Admin Trade Name Freq PRN Reason Stop Dose Admin Albuterol/Ipratropium 3 ml 03/01/18 14:00 03/03/18 13:11 Duoneb 3 Mg/0.5 Mg (3 Ml) Ud INH 3 ml RQ6 MILLIE Administration Artificial Tears 1 gm 02/27/18 20:36 03/01/18 21:53 Lacri-Lube OU 1 gm Q4 PRN Administration Dry eyes Micafungin Sodium 100 mg/ 100 mls @ 100 mls/hr 02/24/18 13:00 03/03/18 13:44 Dextrose IV 100 mls/hr Q24H MILLIE Administration Protocol Propofol 1,000 mg in 100 mls @ 1.772 mls/hr 02/25/18 15:35 03/03/18 08:15 Diprivan IV 20 mcg/kg/min .Q24H PRN 7.087 mls/hr TITRATE PER MD ORDER Titration Protocol 5 MCG/KG/MIN Sodium Bicarbonate 150 meq/ 1,150 mls @ 42 mls/hr 02/28/18 11:00 03/03/18 11: 00 Dextrose IV Not Given .Q24H MILLIE Linezolid 600 mg in 300 mls @ 200 mls/hr 03/01/18 16:00 03/03/18 15:01 Zyvox 600mg/300ml D5w IVPB 200 mls/hr Q12H MILLIE Administration Protocol Meropenem 1 gm/ Sodium 50 mls @ 100 mls/hr 03/01/18 23:00 03/03/18 10:59 Chloride IVPB 100 mls/hr Q12H MILLIE Administration Protocol Norepinephrine Bitartrate 4 mg 254 mls @ 15.24 mls/hr 03/03/18 11:00 11:27 / Sodium Chloride IV 4 mcg/min .[id number] PRN 15.24 mls/hr TITRATE PER MD ORDER Administration Protocol 4 MCG/MIN Insulin Aspart 0 unit 03/01/18 06:00 03/03/18 17:59 Novolog SC 2 units Q6H MILLIE Administration Protocol Lorazepam 1 mg 02/26/18 11:01 03/01/18 09:32 Ativan IVP 1 mg Q4H PRN Administration Agitation Methylprednisolone 40 mg 03/02/18 04:15 03/03/18 12:45 Solu-Medrol IVP 40 mg Q8H MILLIE Administration Multivitamins/Vitamin C 5 ml 02/24/18 10:15 03/03/18 09:43 Multi-Delyn Liquid PO 5 ml DAILY MILLIE Administration Pantoprazole Sodium 40 mg 03/01/18 09:30 03/03/18 09:42 Protonix Inj IVP 40 mg Q12H MILLIE Administration Sucralfate 1 gm 03/01/18 10:00 03/03/18 18:00 Carafate Oral Susp PO 1 gm QID MILLIE Administration - Patient Studies Lab Studies: Lab Studies 03/03/18 03/03/18 03/03/18 Range/Units 17:44 11:12 10:37 WBC (4.8-10.8) K/uL RBC (3.80-5.20) Mil/uL Hgb (11.0-16.0) g/dL Hct (34.0-47.0) % MCV (81.0-99.0) fL MCH (27.0-31.0) pg MCHC (33.0-37.0) g/dL RDW (11.5-14.5) % Plt Count (130-400) K/uL MPV (7.2-11.7) fL Neut % (Auto) (50.0-75.0) % Lymph % (Auto) (20.0-40.0) % Lea % (Auto) (0.0-10.0) % Eos % (Auto) (0.0-4.0) % Baso % (Auto) (0.0-2.0) % Neut # (Auto) (1.8-7.0) K/uL Lymph # (Auto) (1.0-4.3) K/uL Lea # (Auto) (0.0-0.8) K/uL Eos # (Auto) (0.0-0.7) K/uL Baso # (Auto) (0.0-0.2) K/uL Neutrophils % (Manual) (50-75) % Band Neutrophils % (0-2) % Lymphocytes % (Manual) (20-40) % Monocytes % (Manual) (0-10) % Metamyelocytes % (0-0) % Myelocytes % (0-0) % Nucleated RBC % (0-0) % Platelet Estimate (NORMAL) Hypochromasia (manual) Anisocytosis (manual) Puncture Site Rra pCO2 58 H (35-45) mm/Hg pO2 40 L* (80-100) mm/Hg HCO3 19.8 L (21-28) mmol/L ABG pH 7.18 L* (7.35-7.45) ABG Total CO2 23.4 (22-28) mmol/L ABG O2 Saturation 80.3 L (95-98) % ABG Base Excess -6.3 L (-2.0-3.0) mmol/L ABG Hemoglobin 6.7 L (11.7-17.4) g/dL ABG Carboxyhemoglobin 1.7 H (0.5-1.5) % POC ABG HHb (Measured) 19.2 H (0.0-5.0) % ABG Methemoglobin 0.8 (0.0-3.0) % Chepe Test Po A-a O2 Difference 601.0 mm/Hg Respiratory Index 15.0 Hgb O2 Saturation 78.2 L (95.0-98.0) % Vent Mode Prvc Mechanical Rate FiO2 100.0 % Tidal Volume 400 PEEP 12 Crit Value Called To Crit Value Called By Cristiano hargrove,lawn service supervisor Crit Value Read Back Y Blood Gas Notified Time 1045 Sodium (132-148) mmol/L Potassium (3.6-5.2) mmol/L Chloride (98-107) mmol/L Carbon Dioxide (22-30) mmol/L Anion Gap (10-20) BUN (7-17) mg/dL Creatinine (0.7-1.2) mg/dL Est GFR ( Amer) Est GFR (Non-Af Amer) POC Glucose (mg/dL) 242 H 251 H (65-110) mg/dL Random Glucose (65-105) mg/dL Calcium (8.6-10.4) mg/dl Phosphorus (2.5-4.5) mg/dL Magnesium (1.6-2.3) mg/dL Total Bilirubin (0.2-1.3) mg/dL AST (14-36) U/L ALT (9-52) U/L Alkaline Phosphatase (38-126) U/L Total Protein (6.3-8.3) g/dL Albumin (3.5-5.0) g/dL Globulin (2.2-3.9) gm/dL Albumin/Globulin Ratio (1.0-2.1) 03/03/18 03/03/18 03/03/18 Range/Units 06:19 06:17 05:30 WBC 13.7 H D (4.8-10.8) K/uL RBC 3.40 L (3.80-5.20) Mil/uL Hgb 9.6 L (11.0-16.0) g/dL Hct 27.9 L (34.0-47.0) % MCV 82.0 (81.0-99.0) fL MCH 28.1 (27.0-31.0) pg MCHC 34.3 (33.0-37.0) g/dL RDW 19.9 H (11.5-14.5) % Plt Count 55 L (130-400) K/uL MPV 9.3 (7.2-11.7) fL Neut % (Auto) 98.1 H (50.0-75.0) % Lymph % (Auto) 0.8 L (20.0-40.0) % Lea % (Auto) 0.8 (0.0-10.0) % Eos % (Auto) 0.0 (0.0-4.0) % Baso % (Auto) 0.3 (0.0-2.0) % Neut # (Auto) 13.4 H (1.8-7.0) K/uL Lymph # (Auto) 0.1 L (1.0-4.3) K/uL Lea # (Auto) 0.1 (0.0-0.8) K/uL Eos # (Auto) 0.0 (0.0-0.7) K/uL Baso # (Auto) 0.0 (0.0-0.2) K/uL Neutrophils % (Manual) 67 (50-75) % Band Neutrophils % 28 H* (0-2) % Lymphocytes % (Manual) 1 L (20-40) % Monocytes % (Manual) 1 (0-10) % Metamyelocytes % 2 H (0-0) % Myelocytes % 1 H (0-0) % Nucleated RBC % 1 H (0-0) % Platelet Estimate Decreased L (NORMAL) Hypochromasia (manual) Slight Anisocytosis (manual) Moderate Puncture Site Rr pCO2 62 H (35-45) mm/Hg pO2 42 L* (80-100) mm/Hg HCO3 20.3 L (21-28) mmol/L ABG pH 7.18 L* (7.35-7.45) ABG Total CO2 25.0 (22-28) mmol/L ABG O2 Saturation 81.0 L (95-98) % ABG Base Excess -5.5 L (-2.0-3.0) mmol/L ABG Hemoglobin 9.3 L (11.7-17.4) g/dL ABG Carboxyhemoglobin 2.0 H (0.5-1.5) % POC ABG HHb (Measured) 18.5 H (0.0-5.0) % ABG Methemoglobin 0.8 (0.0-3.0) % Chepe Test Pos A-a O2 Difference 594.0 mm/Hg Respiratory Index 14.1 Hgb O2 Saturation 78.8 L (95.0-98.0) % Vent Mode Prvc Mechanical Rate 15 FiO2 100.0 % Tidal Volume 400 PEEP 12 Crit Value Called To Lalo rn Crit Value Called By Chad lawn service supervisor Crit Value Read Back Y Blood Gas Notified Time 540 Sodium 143 (132-148) mmol/L Potassium 4.6 (3.6-5.2) mmol/L Chloride 107 (98-107) mmol/L Carbon Dioxide 23 (22-30) mmol/L Anion Gap 19 (10-20) BUN 78 H (7-17) mg/dL Creatinine 1.7 H (0.7-1.2) mg/dL Est GFR ( Amer) 36 Est GFR (Non-Af Amer) 30 POC Glucose (mg/dL) (65-110) mg/dL Random Glucose 265 H (65-105) mg/dL Calcium 6.7 L (8.6-10.4) mg/dl Phosphorus 6.0 H (2.5-4.5) mg/dL Magnesium 1.9 (1.6-2.3) mg/dL Total Bilirubin 1.6 H (0.2-1.3) mg/dL AST 256 H D (14-36) U/L ALT 80 H D (9-52) U/L Alkaline Phosphatase 336 H D (38-126) U/L Total Protein 4.3 L (6.3-8.3) g/dL Albumin 2.3 L (3.5-5.0) g/dL Globulin 2.0 L (2.2-3.9) gm/dL Albumin/Globulin Ratio 1.1 (1.0-2.1) 03/03/18 03/02/18 Range/Units 05:29 23:37 WBC (4.8-10.8) K/uL RBC (3.80-5.20) Mil/uL Hgb (11.0-16.0) g/dL Hct (34.0-47.0) % MCV (81.0-99.0) fL MCH (27.0-31.0) pg MCHC (33.0-37.0) g/dL RDW (11.5-14.5) % Plt Count (130-400) K/uL MPV (7.2-11.7) fL Neut % (Auto) (50.0-75.0) % Lymph % (Auto) (20.0-40.0) % Lea % (Auto) (0.0-10.0) % Eos % (Auto) (0.0-4.0) % Baso % (Auto) (0.0-2.0) % Neut # (Auto) (1.8-7.0) K/uL Lymph # (Auto) (1.0-4.3) K/uL Lea # (Auto) (0.0-0.8) K/uL Eos # (Auto) (0.0-0.7) K/uL Baso # (Auto) (0.0-0.2) K/uL Neutrophils % (Manual) (50-75) % Band Neutrophils % (0-2) % Lymphocytes % (Manual) (20-40) % Monocytes % (Manual) (0-10) % Metamyelocytes % (0-0) % Myelocytes % (0-0) % Nucleated RBC % (0-0) % Platelet Estimate (NORMAL) Hypochromasia (manual) Anisocytosis (manual) Puncture Site pCO2 (35-45) mm/Hg pO2 (80-100) mm/Hg HCO3 (21-28) mmol/L ABG pH (7.35-7.45) ABG Total CO2 (22-28) mmol/L ABG O2 Saturation (95-98) % ABG Base Excess (-2.0-3.0) mmol/L ABG Hemoglobin (11.7-17.4) g/dL ABG Carboxyhemoglobin (0.5-1.5) % POC ABG HHb (Measured) (0.0-5.0) % ABG Methemoglobin (0.0-3.0) % Chepe Test A-a O2 Difference mm/Hg Respiratory Index Hgb O2 Saturation (95.0-98.0) % Vent Mode Mechanical Rate FiO2 % Tidal Volume PEEP Crit Value Called To Crit Value Called By Crit Value Read Back Blood Gas Notified Time Sodium (132-148) mmol/L Potassium (3.6-5.2) mmol/L Chloride (98-107) mmol/L Carbon Dioxide (22-30) mmol/L Anion Gap (10-20) BUN (7-17) mg/dL Creatinine (0.7-1.2) mg/dL Est GFR ( Amer) Est GFR (Non-Af Amer) POC Glucose (mg/dL) 278 H 266 H (65-110) mg/dL Random Glucose (65-105) mg/dL Calcium (8.6-10.4) mg/dl Phosphorus (2.5-4.5) mg/dL Magnesium (1.6-2.3) mg/dL Total Bilirubin (0.2-1.3) mg/dL AST (14-36) U/L ALT (9-52) U/L Alkaline Phosphatase (38-126) U/L Total Protein (6.3-8.3) g/dL Albumin (3.5-5.0) g/dL Globulin (2.2-3.9) gm/dL Albumin/Globulin Ratio (1.0-2.1) Laboratory Results - last 24 hr 03/02/18 03/03/18 03/03/18 23:37 05:29 05:30 WBC RBC Hgb Hct MCV MCH MCHC RDW Plt Count MPV Neut % (Auto) Lymph % (Auto) Lea % (Auto) Eos % (Auto) Baso % (Auto) Neut # (Auto) Lymph # (Auto) Lea # (Auto) Eos # (Auto) Baso # (Auto) Neutrophils % (Manual) Band Neutrophils % Lymphocytes % (Manual) Monocytes % (Manual) Metamyelocytes % Myelocytes % Nucleated RBC % Platelet Estimate Hypochromasia (manual) Anisocytosis (manual) Puncture Site Rr pCO2 62 H pO2 42 L* HCO3 20.3 L ABG pH 7.18 L* ABG Total CO2 25.0 ABG O2 Saturation 81.0 L ABG Base Excess -5.5 L ABG Hemoglobin 9.3 L ABG Carboxyhemoglobin 2.0 H POC ABG HHb (Measured) 18.5 H ABG Methemoglobin 0.8 Chepe Test Pos A-a O2 Difference 594.0 Respiratory Index 14.1 Hgb O2 Saturation 78.8 L Vent Mode Prvc Mechanical Rate 15 FiO2 100.0 Tidal Volume 400 PEEP 12 Crit Value Called To Lalo rn Crit Value Called By Chad lawn service supervisor Crit Value Read Back Y Blood Gas Notified Time 540 Sodium Potassium Chloride Carbon Dioxide Anion Gap BUN Creatinine Est GFR ( Amer) Est GFR (Non-Af Amer) POC Glucose (mg/dL) 266 H 278 H Random Glucose Calcium Phosphorus Magnesium Total Bilirubin AST ALT Alkaline Phosphatase Total Protein Albumin Globulin Albumin/Globulin Ratio 03/03/18 03/03/18 03/03/18 06:17 06:19 10:37 WBC 13.7 H D RBC 3.40 L Hgb 9.6 L Hct 27.9 L MCV 82.0 MCH 28.1 MCHC 34.3 RDW 19.9 H Plt Count 55 L MPV 9.3 Neut % (Auto) 98.1 H Lymph % (Auto) 0.8 L Lea % (Auto) 0.8 Eos % (Auto) 0.0 Baso % (Auto) 0.3 Neut # (Auto) 13.4 H Lymph # (Auto) 0.1 L Lea # (Auto) 0.1 Eos # (Auto) 0.0 Baso # (Auto) 0.0 Neutrophils % (Manual) 67 Band Neutrophils % 28 H* Lymphocytes % (Manual) 1 L Monocytes % (Manual) 1 Metamyelocytes % 2 H Myelocytes % 1 H Nucleated RBC % 1 H Platelet Estimate Decreased L Hypochromasia (manual) Slight Anisocytosis (manual) Moderate Puncture Site Rra pCO2 58 H pO2 40 L* HCO3 19.8 L ABG pH 7.18 L* ABG Total CO2 23.4 ABG O2 Saturation 80.3 L ABG Base Excess -6.3 L ABG Hemoglobin 6.7 L ABG Carboxyhemoglobin 1.7 H POC ABG HHb (Measured) 19.2 H ABG Methemoglobin 0.8 Chepe Test Po A-a O2 Difference 601.0 Respiratory Index 15.0 Hgb O2 Saturation 78.2 L Vent Mode Prvc Mechanical Rate FiO2 100.0 Tidal Volume 400 PEEP 12 Crit Value Called To Crit Value Called By Cristiano hargrove,lawn service supervisor Crit Value Read Back Y Blood Gas Notified Time 1045 Sodium 143 Potassium 4.6 Chloride 107 Carbon Dioxide 23 Anion Gap 19 BUN 78 H Creatinine 1.7 H Est GFR ( Amer) 36 Est GFR (Non-Af Amer) 30 POC Glucose (mg/dL) Random Glucose 265 H Calcium 6.7 L Phosphorus 6.0 H Magnesium 1.9 Total Bilirubin 1.6 H AST 256 H D ALT 80 H D Alkaline Phosphatase 336 H D Total Protein 4.3 L Albumin 2.3 L Globulin 2.0 L Albumin/Globulin Ratio 1.1 03/03/18 03/03/18 11:12 17:44 WBC RBC Hgb Hct MCV MCH MCHC RDW Plt Count MPV Neut % (Auto) Lymph % (Auto) Lea % (Auto) Eos % (Auto) Baso % (Auto) Neut # (Auto) Lymph # (Auto) Lea # (Auto) Eos # (Auto) Baso # (Auto) Neutrophils % (Manual) Band Neutrophils % Lymphocytes % (Manual) Monocytes % (Manual) Metamyelocytes % Myelocytes % Nucleated RBC % Platelet Estimate Hypochromasia (manual) Anisocytosis (manual) Puncture Site pCO2 pO2 HCO3 ABG pH ABG Total CO2 ABG O2 Saturation ABG Base Excess ABG Hemoglobin ABG Carboxyhemoglobin POC ABG HHb (Measured) ABG Methemoglobin Chepe Test A-a O2 Difference Respiratory Index Hgb O2 Saturation Vent Mode Mechanical Rate FiO2 Tidal Volume PEEP Crit Value Called To Crit Value Called By Crit Value Read Back Blood Gas Notified Time Sodium Potassium Chloride Carbon Dioxide Anion Gap BUN Creatinine Est GFR ( Amer) Est GFR (Non-Af Amer) POC Glucose (mg/dL) 251 H 242 H Random Glucose Calcium Phosphorus Magnesium Total Bilirubin AST ALT Alkaline Phosphatase Total Protein Albumin Globulin Albumin/Globulin Ratio Assessment/Plan (1) Acute respiratory failure with hypoxia Current Visit: Yes Status: Acute Attending/Attestation - Attestation I have personally seen and examined this patient.: Yes I have fully participated in the care of the patient.: Yes I have reviewed all pertinent clinical information: Yes Notes (Text): 03/03/18 18:34 Patient seen and examined in the intensive care unit Remained intubated on ventilatory support requiring high FiO2 Sedated on Diprivan Worsening infiltrate Continue antibiotics Pressors as needed Multiorgan failure Prognosis poor
[2018-03-03 10:41] LABS: ABG ALLEN TEST PO; ARTERIAL BLOOD GAS HCO3 19.8 mmol/L (21-28); ARTERIAL BLOOD GAS HEMOGLOBIN 6.7 g/dL (11.7-17.4); ARTERIAL BLOOD GAS O2 SAT 80.3 % (95-98); ARTERIAL BLOOD GAS PCO2 58 mm/Hg (35-45); ARTERIAL BLOOD GAS PH 7.18 (7.35-7.45); ARTERIAL BLOOD GAS PO2 40 mm/Hg (80-100); ARTERIAL BLOOD GAS TCO2 23.4 mmol/L (22-28)
[2018-03-03] MEDS ORDERED: Sodium Bicarbonate (8.4%) 50 Meq Syringe IVP ONE (11:00)
[2018-03-03] MEDS: Sodium Bicarbonate 8.4% 150 MEQ in Dextrose 5% In Water 1,000 ML IV SCH (11:00)
[2018-03-03] MEDS ORDERED: (Novolin R) Insulin Human Regular 100 units/ml vial SC SCH (11:30)
--- NOTE | 2018-03-03 12:58 | CP.PCM.PN ---
Subjective - Date & Time of Evaluation Date of Evaluation: 03/03/18 Time of Evaluation: 11:45 - Subjective Subjective: clinically same Objective - Vital Signs/Intake and Output Vital Signs (last 24 hours): Temp Pulse Resp BP Pulse Ox 97.6 F 89 33 H 105/50 L 85 L 03/03/18 12:00 03/03/18 11:47 03/03/18 11:47 03/03/18 11:47 03/03/18 11:47 Intake and Output: 03/03/18 03/03/18 06:59 18:59 Intake Total 1361.9 418.7 Output Total 120 Balance 1241.9 418.7 - Medications Medications: Current Medications Albuterol/Ipratropium (Duoneb 3 Mg/0.5 Mg (3 Ml) Ud) 3 ml INH RQ6 [facility] Last Admin: 03/03/18 08:15 Dose: 3 ml Artificial Tears (Lacri-Lube) 1 gm OU Q4 PRN PRN Reason: Dry eyes Last Admin: 03/01/18 21:53 Dose: 1 gm Micafungin Sodium 100 mg/ (Dextrose) 100 mls @ 100 mls/hr IV Q24H [facility] PRN Reason: Protocol Last Admin: 03/02/18 12:46 Dose: 100 mls/hr Propofol (Diprivan) 1,000 mg in 100 mls @ 1.772 mls/hr IV .Q24H PRN; Protocol; 5 MCG/KG/MIN PRN Reason: TITRATE PER MD ORDER Last Titration: 03/03/18 08:15 Dose: 20 mcg/kg/min, 7.087 mls/hr Sodium Bicarbonate 150 meq/ (Dextrose) 1,150 mls @ 42 mls/hr IV .Q24H [facility] Last Admin: 03/03/18 11:00 Dose: Not Given Linezolid (Zyvox 600mg/300ml D5w) 600 mg in 300 mls @ 200 mls/hr IVPB Q12H [facility] PRN Reason: Protocol Last Admin: 03/03/18 04:04 Dose: 200 mls/hr Meropenem 1 gm/ Sodium (Chloride) 50 mls @ 100 mls/hr IVPB Q12H [facility] PRN Reason: Protocol Last Admin: 03/03/18 10:59 Dose: 100 mls/hr Norepinephrine Bitartrate 4 mg (/ Sodium Chloride) 254 mls @ 15.24 mls/hr IV .[id number] PRN; Protocol; 4 MCG/MIN PRN Reason: TITRATE PER MD ORDER Last Admin: 03/03/18 11:27 Dose: 4 mcg/min, 15.24 mls/hr Insulin Aspart (Novolog) 0 unit SC Q6H [facility] PRN Reason: Protocol Last Admin: 03/03/18 12:39 Dose: 3 units Insulin Human Regular (Novolin R) 0 unit SC ACHS M[facility]IE PRN Reason: Protocol Lorazepam (Ativan) 1 mg IVP Q4H PRN PRN Reason: Agitation Last Admin: 03/01/18 09:32 Dose: 1 mg Methylprednisolone (Solu-Medrol) 40 mg IVP Q8H [facility] [place] Last Admin: 03/03/18 12:45 Dose: 40 mg Multivitamins/Vitamin C (Multi-Delyn Liquid) 5 ml PO DAILY [facility] [place] Last Admin: 03/03/18 09:43 Dose: 5 ml Pantoprazole Sodium (Protonix Inj) 40 mg IVP Q12H [facility] [place] Last Admin: 03/03/18 09:42 Dose: 40 mg Sucralfate (Carafate Oral Susp) 1 gm PO QID [facility] [place] Last Admin: 03/03/18 09:42 Dose: 1 gm - Labs Labs: 03/03/18 06:19 03/03/18 06:17 PT 15.6 SECONDS (9.7-12.2) H 02/25/18 23:48 INR 1.4 02/25/18 23:48 APTT 29 SECONDS (21-34) 02/25/18 23:48 - Constitutional Appears: Well - Head Exam Head Exam: ATRAUMATIC, NORMAL INSPECTION, NORMOCEPHALIC - Eye Exam Eye Exam: EOMI, Normal appearance, PERRL Pupil Exam: NORMAL ACCOMODATION, PERRL - ENT Exam ENT Exam: Mucous Membranes Moist, Normal Exam - Neck Exam Neck Exam: Full ROM, Normal Inspection. 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
--- NOTE | 2018-03-03 13:00 | CP.PCM.PN ---
Subjective - Date & Time of Evaluation Date of Evaluation: 03/03/18 Time of Evaluation: 09:00 - Subjective Subjective: intubated in ICU nad Objective - Vital Signs/Intake and Output Vital Signs (last 24 hours): Temp Pulse Resp BP Pulse Ox 97.6 F 89 33 H 105/50 L 85 L 03/03/18 12:00 03/03/18 11:47 03/03/18 11:47 03/03/18 11:47 03/03/18 11:47 Intake and Output: 03/03/18 03/03/18 06:59 18:59 Intake Total 1361.9 418.7 Output Total 120 Balance 1241.9 418.7 - Medications Medications: Current Medications Albuterol/Ipratropium (Duoneb 3 Mg/0.5 Mg (3 Ml) Ud) 3 ml INH RQ6 [facility] Last Admin: 03/03/18 08:15 Dose: 3 ml Artificial Tears (Lacri-Lube) 1 gm OU Q4 PRN PRN Reason: Dry eyes Last Admin: 03/01/18 21:53 Dose: 1 gm Micafungin Sodium 100 mg/ (Dextrose) 100 mls @ 100 mls/hr IV Q24H [facility] PRN Reason: Protocol Last Admin: 03/02/18 12:46 Dose: 100 mls/hr Propofol (Diprivan) 1,000 mg in 100 mls @ 1.772 mls/hr IV .Q24H PRN; Protocol; 5 MCG/KG/MIN PRN Reason: TITRATE PER MD ORDER Last Titration: 03/03/18 08:15 Dose: 20 mcg/kg/min, 7.087 mls/hr Sodium Bicarbonate 150 meq/ (Dextrose) 1,150 mls @ 42 mls/hr IV .Q24H [facility] Last Admin: 03/03/18 11:00 Dose: Not Given Linezolid (Zyvox 600mg/300ml D5w) 600 mg in 300 mls @ 200 mls/hr IVPB Q12H [facility] PRN Reason: Protocol Last Admin: 03/03/18 04:04 Dose: 200 mls/hr Meropenem 1 gm/ Sodium (Chloride) 50 mls @ 100 mls/hr IVPB Q12H [facility] PRN Reason: Protocol Last Admin: 03/03/18 10:59 Dose: 100 mls/hr Norepinephrine Bitartrate 4 mg (/ Sodium Chloride) 254 mls @ 15.24 mls/hr IV .[id number] PRN; Protocol; 4 MCG/MIN PRN Reason: TITRATE PER MD ORDER Last Admin: 03/03/18 11:27 Dose: 4 mcg/min, 15.24 mls/hr Insulin Aspart (Novolog) 0 unit SC Q6H [facility] PRN Reason: Protocol Last Admin: 03/03/18 12:39 Dose: 3 units Insulin Human Regular (Novolin R) 0 unit SC ACHS [facility]IE PRN Reason: Protocol Lorazepam (Ativan) 1 mg IVP Q4H PRN PRN Reason: Agitation Last Admin: 03/01/18 09:32 Dose: 1 mg Methylprednisolone (Solu-Medrol) 40 mg IVP Q8H [facility] Last Admin: 03/03/18 12:45 Dose: 40 mg Multivitamins/Vitamin C (Multi-Delyn Liquid) 5 ml PO DAILY [facility] Last Admin: 03/03/18 09:43 Dose: 5 ml Pantoprazole Sodium (Protonix Inj) 40 mg IVP Q12H [facility] Last Admin: 03/03/18 09:42 Dose: 40 mg Sucralfate (Carafate Oral Susp) 1 gm PO QID [facility] Last Admin: 03/03/18 09:42 Dose: 1 gm - Labs Labs: 03/03/18 06:19 03/03/18 06:17 PT 15.6 SECONDS (9.7-12.2) H 02/25/18 23:48 INR 1.4 02/25/18 23:48 APTT 29 SECONDS (21-34) 02/25/18 23:48 - Constitutional Appears: Non-toxic, Chronically Ill - Head Exam Head Exam: NORMOCEPHALIC - Eye Exam Eye Exam: absent: Scleral icterus - ENT Exam ENT Exam: Mucous Membranes Dry - Neck Exam Neck Exam: absent: Lymphadenopathy - Respiratory Exam Respiratory Exam: Decreased Breath Sounds - Cardiovascular Exam Cardiovascular Exam: REGULAR RHYTHM - GI/Abdominal Exam GI & Abdominal Exam: Distended - Rectal Exam Rectal Exam: Deferred - Exam Exam: NORMAL INSPECTION - Extremities Exam Extremities Exam: absent: Pedal Edema - Back Exam Back Exam: absent: CVA tenderness (L), CVA tenderness (R) - Neurological Exam Neurological Exam: Altered Assessment and Plan (1) CHF (congestive heart failure) Status: Acute (2) COPD exacerbation Status: Acute (3) Dehydration Status: Acute - Assessment and Plan (Free Text) Assessment: iv rx reordered
[2018-03-03] MEDS: Micafungin 100 MG in Dextrose 5% In Water 100 ML IV SCH (13:44)
--- NOTE | 2018-03-03 14:07 | VASCLAB ---
Date of service: 02/27/2018 PROCEDURE: Lower Extremity Venous Duplex Exam. HISTORY: Leg swelling PRIORS: None. TECHNIQUE: Bilateral common femoral, femoral, popliteal and posterior tibial, peroneal and great saphenous veins were evaluated. Flow was assessed with color Doppler, compressibility, assessment of phasic flow and augmentation response. Report prepared by Terry Bnejamin, TORRIE, RVT FINDINGS: RIGHT: 1. Common Femoral Vein: 1.1. Compressibility - Fully compressible: Thrombus - None : Flow - Phasic: Augmentation -Normal: Reflux - None. 2. Femoral Vein: 2.1. Compressibility - Fully compressible: Thrombus - None : Flow - Phasic: Augmentation -Normal: Reflux - None. 3. Popliteal Vein: 3.1. Compressibility - Fully compressible: Thrombus - None : Flow - Phasic: Augmentation -Normal: Reflux - None. 4. Posterior Tibial Vein: 4.1. Compressibility - Fully compressible: Thrombus - None: Flow - Phasic: Augmentation -Normal: Reflux - None. 5. Peroneal Vein: 5.1. Compressibility - Fully compressible: Thrombus - None: Flow - Phasic: Augmentation -Normal: Reflux - None. 6. Great Saphenous Vein: 6.1. Compressibility - Fully compressible: Thrombus - None: Flow - Phasic: Augmentation - Normal: Reflux - None. LEFT: 1. Common Femoral Vein: 1.1. Compressibility - Fully compressible: Thrombus - None: Flow - Phasic: Augmentation -Normal: Reflux - None. 2. Femoral Vein: 2.1. Compressibility - Fully compressible: Thrombus - None: Flow - Phasic: Augmentation -Normal: Reflux - None. 3. Popliteal Vein: 3.1. Compressibility - Fully compressible: Thrombus - None : Flow - Phasic: Augmentation -Normal: Reflux - None. 4. Posterior Tibial Vein: 4.1. Compressibility - Fully compressible: Thrombus - None: Flow - Phasic: Augmentation -Normal: Reflux - None. 5. Peroneal Vein: 5.1. Compressibility - Fully compressible: Thrombus - None: Flow - Phasic: Augmentation -Normal: Reflux - None. 6. Great Saphenous Vein: 6.1. Compressibility - Fully compressible: Thrombus - None: Flow - Phasic: Augmentation - Normal: Reflux - None. OTHER FINDINGS: Right: None significant. Left: None significant. IMPRESSION: Right: No evidence of deep or superficial vein thrombosis of the right lower extremity. Normal valve function noted of the right side. Left: No evidence of deep or superficial vein thrombosis of the left lower extremity. Normal valve function noted of the left side.
--- NOTE | 2018-03-03 14:07 | VASCLAB ---
Date of service: 02/27/2018 PROCEDURE: Right Upper Extremity Venous Duplex Exam HISTORY: Right arm swelling PRIORS: None. TECHNIQUE: Right upper extremity, internal jugular, subclavian, axillary, brachial, ulnar, radial, basilic and upper cephalic veins were evaluated. Flow was assessed with color Doppler, compressibility, assessment of phasic flow and augmentation response. Report prepared by Terry Benjamin, TORRIE, RVT FINDINGS: RIGHT: 1. Internal Jugular: 1.1. Compressibility - Fully compressible: Thrombus - None : Flow - Phasic: Augmentation -Normal: Reflux - None. 2. Subclavian: 2.1. Compressibility - Fully compressible: Thrombus - None : Flow - Phasic: Augmentation -Normal: Reflux - None. 3. Axillary: 3.1. Compressibility - Fully compressible: Thrombus - None : Flow - Phasic: Augmentation -Normal: Reflux - None. 4. Brachial: 4.1. Compressibility - Fully compressible: Thrombus - None: Flow - Phasic: Augmentation -Normal: Reflux - None. 5. Ulnar: 5.1. Compressibility - Fully compressible: Thrombus - None: Flow - Phasic: Augmentation -Normal: Reflux - None. 6. Radial: 6.1. Compressibility - Fully compressible: Thrombus - None: Flow - Phasic: Augmentation - Normal: Reflux - None. 7. Cephalic: 7.1. Compressibility - Fully compressible: Thrombus - None: Flow - Phasic: Augmentation -Normal: Reflux - None. 8. Basilic: 8.1. Compressibility - Fully compressible: Thrombus - None: Flow - Phasic: Augmentation -Normal: Reflux - None. OTHER FINDINGS: Right: None. IMPRESSION: Right: No evidence of vein thrombosis of the right upper extremity with excellent venous flow. Normal valve function noted of the right side. Normal venous flow noted in the left internal jugular and left subclavian veins.
[2018-03-04] MEDS: (Novolog) Insulin Aspart, Recombinant 100 u/ml 10 ml vial SC SCH ×2 (00:28→06:33)
[2018-03-04] MEDS: Sodium Bicarbonate 8.4% 150 MEQ in Dextrose 5% In Water 1,000 ML IV SCH (01:11)
[2018-03-04] MEDS: Albuterol-Ipratrop 3 mg / 0.5 (3 ml) UD INH SCH ×2 (01:40→08:00)
[2018-03-04] MEDS: MethylPREDNISolone 40 mg Vial IVP SCH (03:45)
[2018-03-04] MEDS: Linezolid 600 mg in D5W 300 ml 600 MG/300 ML BAG IVPB SCH (03:45)
[2018-03-04 05:51] LABS: ABG ALLEN TEST POS; ARTERIAL BLOOD GAS HCO3 12.1 mmol/L (21-28); ARTERIAL BLOOD GAS HEMOGLOBIN 8.5 g/dL (11.7-17.4); ARTERIAL BLOOD GAS O2 SAT 60.5 % (95-98); ARTERIAL BLOOD GAS PCO2 78 mm/Hg (35-45); ARTERIAL BLOOD GAS PH 6.93 (7.35-7.45); ARTERIAL BLOOD GAS PO2 35 mm/Hg (80-100); ARTERIAL BLOOD GAS TCO2 18.8 mmol/L (22-28)
[2018-03-04] MEDS ORDERED: Sodium Bicarbonate (8.4%) 50 Meq Syringe IVP ONE ×2 (06:00→07:11)
[2018-03-04 06:26] LABS: BASO # 0.1 K/uL (0.0-0.2); BASO % 0.4 % (0.0-2.0); EOS % 0.1 % (0.0-4.0); LYMPH # 0.4 K/uL (1.0-4.3); LYMPH % 1.4 % (20.0-40.0); MEAN CELL VOLUME 84.3 fL (81.0-99.0); MEAN CORPUSCULAR HGB CONC 33.2 g/dL (33.0-37.0); MEAN PLATELET VOLUME 9.8 fL (7.2-11.7); MONO # 0.3 K/uL (0.0-0.8); MONO % 0.9 % (0.0-10.0); NEUT % 97.2 % (50.0-75.0); NRBC % 2.2 % (0.0-2.0); PLATELET COUNT 90 K/uL (130-400); RBC 3.22 Mil/uL (3.80-5.20); RED CELL DISTRIBUTION WIDTH 20.9 % (11.5-14.5); WHITE BLOOD COUNT 31.9 K/uL (4.8-10.8)
--- NOTE | 2018-03-04 06:40 | CP.PCM.PCO ---
Additional Comments - Additional Comments Additional Comments: ABG showed sever hypoxia and worsening metabolic and resp acidosis, patient also became bradycardic and levophed maxed, patient was given 2 amps of sodium bicarb, vent changed to VT 500 this increased peak pressure to 39, the peep then reduced to 10, the peek pressure improved to 35, family at bed side informed poor prognosis and patient may have cardiac arrest any time, also mentioned that currently she is on maximum ventilatory and high pressor support. Family inclining toward not doing CPR as patient is on maximum support and may not benefit if she arrest on this, but still had not made decision.
[2018-03-04] MEDS ORDERED: Calcium Gluconate 4.65 mEq/10 ml Inj IVP ONE (08:30)
[2018-03-04 08:35] VITALS: TEMP 97.8; O2SAT 75
[2018-03-04 08:57] LABS: ANISOCYTOSIS MODERATE; BANDS 35 % (0-2); LYMPHOCYTE 2 % (20-40); MONOCYTE 1 % (0-10); MYELOCYTE 2 % (0-0); NEUTROPHIL 59 % (50-75); NUCLEATED RED BLOOD CELL 3 % (0-0); PLASMACYTES 1 (0-0); PLATELET ESTIMATE DECREASED (NORMAL); TOTAL CELLS COUNTED 100
[2018-03-04 08:58] LABS: TOXIC GRANULATION PRESENT
[2018-03-04] MEDS: Multiple Vitamins Oral Solution PO SCH (10:39)
[2018-03-04] MEDS: Sucralfate 1 gm/10 ml Oral Susp UD PO SCH (10:41)
[2018-03-04 10:49] VITALS: BP 63/32; PULSE 47; RESP 22
--- NOTE | 2018-03-04 11:41 | CP.PCM.PRO ---
Pronouncement of Note - Clinical Findings Physical Exam: No Response Verbal/Painful Stimuli, Absent Peripheral Pulses{ Carotid & Femoral}, Absent Heart & Breath Sounds, No Pupillary Light Reflex, No Corneal Reflex, Pupils Fixed & Dilated, Absence of Vital Signs - Pronouncement Time Time of Pronouncement of : 11:39 Additional Comments: Patient's heart rate slowed down to 30s and patient was found to be pulseless. Compressions were started and patient received 1 dose of Epinephrine, however patient's daughter at bedside requested cessation of CPR at 1126am. Patient pronounced at 1139am. - Notifications Pronouncement Notifications: Family Notified, Atending Notified - [place] [id number]
== END 2018-03-04 11:39 | DRG 870 ==
LOC: C.ER 08:41 → C.9E 11:19 → C.5S 15:37 → C.9I 02-05 15:56 → C.3T 02-13 10:18 → C.9I 02-23 21:39
PROVIDERS: ADMIT Internal Medicine Nephrology; ATTEND Internal Medicine Nephrology
PROC: 0JH63XZ Insertion of Tunneled Vascular Access Device into Chest Subcutaneous Tissue and Fascia, Percutaneous Approach (ICD-10-PCS; 2018-02-03)
PROC: 02HV33Z Insertion of Infusion Device into Superior Vena Cava, Percutaneous Approach (ICD-10-PCS; 2018-02-03)
PROC: B518ZZA Fluoroscopy of Superior Vena Cava, Guidance (ICD-10-PCS; 2018-02-03)
PROC: B543ZZA Ultrasonography of Right Jugular Veins, Guidance (ICD-10-PCS; 2018-02-03)
PROC: 30233N1 Transfusion of Nonautologous Red Blood Cells into Peripheral Vein, Percutaneous Approach (ICD-10-PCS; 2018-02-13)
PROC: 6A551Z2 Pheresis of Platelets, Multiple (ICD-10-PCS; 2018-02-20)
PROC: 0BH18EZ Insertion of Endotracheal Airway into Trachea, Via Natural or Artificial Opening Endoscopic (ICD-10-PCS; principal; 2018-02-25)
PROC: 5A1955Z Respiratory Ventilation, Greater than 96 Consecutive Hours (ICD-10-PCS; 2018-02-25)
PROC: 30233R1 Transfusion of Nonautologous Platelets into Peripheral Vein, Percutaneous Approach (ICD-10-PCS; 2018-02-25)
PROC: 3E0G76Z Introduction of Nutritional Substance into Upper GI, Via Natural or Artificial Opening (ICD-10-PCS; 2018-02-27)
PROC: 0DH67UZ Insertion of Feeding Device into Stomach, Via Natural or Artificial Opening (ICD-10-PCS; 2018-02-27)
DX: A41.02 Sepsis due to Methicillin resistant Staphylococcus aureus (principal); J15.212 Pneumonia due to Methicillin resistant Staphylococcus aureus; J96.01 Acute respiratory failure with hypoxia; C83.30 Diffuse large B-cell lymphoma, unspecified site; I50.43 Acute on chronic combined systolic (congestive) and diastolic (congestive) heart failure; R65.21 Severe sepsis with septic shock; J44.1 Chronic obstructive pulmonary disease with (acute) exacerbation; J45.901 Unspecified asthma with (acute) exacerbation; N39.0 Urinary tract infection, site not specified; E87.2 Acidosis; N17.9 Acute kidney failure, unspecified; J80 Acute respiratory distress syndrome; J44.0 Chronic obstructive pulmonary disease with (acute) lower respiratory infection; R18.8 Other ascites; D62 Acute posthemorrhagic anemia; I11.0 Hypertensive heart disease with heart failure; E86.0 Dehydration; D63.8 Anemia in other chronic diseases classified elsewhere; D70.1 Agranulocytosis secondary to cancer chemotherapy; T45.1X5A Adverse effect of antineoplastic and immunosuppressive drugs, initial encounter; M81.0 Age-related osteoporosis without current pathological fracture; K59.00 Constipation, unspecified; K80.20 Calculus of gallbladder without cholecystitis without obstruction; A40.9 Streptococcal sepsis, unspecified; E11.51 Type 2 diabetes mellitus with diabetic peripheral angiopathy without gangrene; R50.81 Fever presenting with conditions classified elsewhere; Z51.5 Encounter for palliative care; T80.92XA Unspecified transfusion reaction, initial encounter; D69.6 Thrombocytopenia, unspecified; R62.7 Adult failure to thrive; Y95 Nosocomial condition; Y84.8 Other medical procedures as the cause of abnormal reaction of the patient, or of later complication, without mention of misadventure at the time of the procedure; Z87.891 Personal history of nicotine dependence; Z90.12 Acquired absence of left breast and nipple; Z90.710 Acquired absence of both cervix and uterus; Z85.3 Personal history of malignant neoplasm of breast; Z85.41 Personal history of malignant neoplasm of cervix uteri; Z92.21 Personal history of antineoplastic chemotherapy; Z87.440 Personal history of urinary (tract) infections